=== PATIENT | female | born 1950 | race Caucasian/White ===

== ENCOUNTER 2016-09-12 17:00 | Inpatient (IN) | payer MEDICARE, MEDICAID ==
--- NOTE | 2016-09-12 17:01 | ED Physician Chart ---
Chief Complaint/HPI - Patient Information Date Seen:: 09/12/16 Time Seen:: 17:00 Chief Complaint:: abnormal labs History of Present Illness:: 65-year-old female with history of dementia acute, severe, abnormal labs are noticed this morning. Patient had associated fever which caused the care facility to draw labs. Apparent abnormalities were leukocytosis of over 20,000 , BUN over 100. History limited patient has underlying severe dementia History provided by EMS and EMS run sheet Allergies:: Allergies Allergy/AdvReac Type Severity Reaction Status Date / Time Penicillins [PCN] Allergy Verified 04/17/16 14:17 Historian:: EMS Review:: EMS run form Reviewed Review of Systems - Review of Systems Other: Complete system review otherwise unremarkable except as noted in history of present illness. Past Medical History - Past Medical History Past Medical History: HTN, Dementia Family History: None Social History: Non Smoker, No Alcohol, No Drug Use, Care Facility Surgical History: None Psychiatricy History: Depression, Schizophrenia Medication: Reviewed Family Medical History - Family Member Maternal History Unknown: Yes Ethnicity: Non- Physical Exam - Physical Examination Other:: INITIAL VITAL SIGNS: Reviewed by me GENERAL: Patient is lying on gurney, severely demented. HEAD: Head is normocephalic. No evidence of trauma. No scalp or facial swelling EYES: No scleral icterus bilaterally ENT: Oropharynx is clear of exudate and erythema NECK: Supple. No meningismus. No masses. No evidence of trauma. No cervical spine bony step-offs or crepitus to palpation RESPIRATORY: No tachypnea. Clear to auscultation bilaterally. CV: Regular rate and rhythm. No murmurs, rubs, or gallops ABDOMEN: Soft, non-distended. No masses BACK: No ecchymoses. No evidence of trauma EXTREMITIES: Normal to inspection and palpation. No deformity SKIN: Warm and dry. No obvious rash. No jaundice. States 3 decubitus ulcer over the coccyx NEUROLOGIC: Face is symmetric. Withdraws to pain in all extremities Labs/Radiology/EKG Results - Lab Results Results: Lab Results 09/12/16 09/12/16 09/12/16 Range/Units 17:05 17:20 17:20 WBC 22.4 H* D (4.8-10.8) Th/cmm RBC 3.92 (3.80-5.10) Mil/cmm Hgb 12.2 D (11.7-15.5) gm/dL Hct 36.0 D (35.0-45.0) % MCV 91.9 (81-100) fl MCH 31.0 (27.0-31.0) pg MCHC Differential 33.7 (28.0-36.0) pg RDW 14.2 (11.5-20.0) % Plt Count 249 D (150-400) Th/cmm MPV 11.1 fl Band Neutrophils % 4 (0-10) % Neutrophils (Manual) 74 (40-80) % Lymphocytes 18 L (20-50) % Monocytes 3 (2-10) % Eosinophils 1 (0-5) % Basophils 0 (0-3) % Platelet Estimate ADEQUATE (NORMAL) Platelet Morphology NORMAL (NORMAL) RBC Morph Micro Appear NORMAL (NORMAL) PT 10.3 (9.5-11.5) SECONDS INR 0.99 (0.5-1.4) PTT (Actin FS) 20.7 L (26.0-38.0) SECONDS Sodium (136-145) mEq/L Potassium (3.5-5.1) mEq/L Chloride (98-107) mEq/L Carbon Dioxide (21.0-31.0) mEq/L Anion Gap (7.0-16.0) BUN (7-25) mg/dL Creatinine (0.6-1.2) mg/dL Est GFR ( Amer) (>90) ml/min Est GFR (Non-Af Amer) ml/min BUN/Creatinine Ratio Glucose (70-105) mg/dL Whole Bld Lactic Acid (0.60-1.99) mmol/L Calcium (8.6-10.3) mg/dL Total Bilirubin (0.3-1.0) mg/dL AST (13-39) U/L ALT (7-52) U/L Alkaline Phosphatase (34-104) U/L Creatine Kinase (30-223) U/L Total Protein (6.0-8.3) gm/dL Albumin (3.7-5.3) gm/dL Globulin gm/dL Albumin/Globulin Ratio (1.0-1.8) Urine Source CATH Urine Color YELLOW Urine Clarity CLOUDY H (CLEAR) Urine pH 8.5 Ur Specific [place] 1.015 (1.005-1.030) Urine Protein 100 H (NEGATIVE) mg/dL Urine Glucose (UA) NEGATIVE (NEGATIVE) mg/dL Urine Ketones NEGATIVE (NEGATIVE) mg/dL Urine Blood SMALL H (NEGATIVE) Urine Nitrate POSITIVE H (NEGATIVE) Urine Bilirubin NEGATIVE (NEGATIVE) Urine Urobilinogen 0.2 (0.2 - 1.0) E.U./dL Ur Leukocyte Esterase SMALL H (NEGATIVE) Urine RBC 5-10 H (0-5) /hpf Urine WBC 6-10 H (0-5) /hpf Ur Epithelial Cells MANY (FEW) /lpf Triple Phos Crystals MANY (FEW) /hpf Urine Bacteria MANY (NONE SEEN) /hpf 09/12/16 09/12/16 Range/Units 17:20 17:20 WBC (4.8-10.8) Th/cmm RBC (3.80-5.10) Mil/cmm Hgb (11.7-15.5) gm/dL Hct (35.0-45.0) % MCV (81-100) fl MCH (27.0-31.0) pg MCHC Differential (28.0-36.0) pg RDW (11.5-20.0) % Plt Count (150-400) Th/cmm MPV fl Band Neutrophils % (0-10) % Neutrophils (Manual) (40-80) % Lymphocytes (20-50) % Monocytes (2-10) % Eosinophils (0-5) % Basophils (0-3) % Platelet Estimate (NORMAL) Platelet Morphology (NORMAL) RBC Morph Micro Appear (NORMAL) PT (9.5-11.5) SECONDS INR (0.5-1.4) PTT (Actin FS) (26.0-38.0) SECONDS Sodium 156 H D (136-145) mEq/L Potassium 4.5 (3.5-5.1) mEq/L Chloride 124 H (98-107) mEq/L Carbon Dioxide 27.8 (21.0-31.0) mEq/L Anion Gap 8.7 (7.0-16.0) BUN 112 H* (7-25) mg/dL Creatinine 1.3 H (0.6-1.2) mg/dL Est GFR ( Amer) 53.0 (>90) ml/min Est GFR (Non-Af Amer) 43.8 ml/min BUN/Creatinine Ratio 86.2 Glucose 226 H (70-105) mg/dL Whole Bld Lactic Acid 1.87 (0.60-1.99) mmol/L Calcium 11.5 H (8.6-10.3) mg/dL Total Bilirubin 0.3 (0.3-1.0) mg/dL AST 23 (13-39) U/L ALT 48 (7-52) U/L Alkaline Phosphatase 72 (34-104) U/L Creatine Kinase 83 (30-223) U/L Total Protein 9.2 H (6.0-8.3) gm/dL Albumin 4.6 (3.7-5.3) gm/dL Globulin 4.6 gm/dL Albumin/Globulin Ratio 1.0 (1.0-1.8) Urine Source Urine Color Urine Clarity (CLEAR) Urine pH Ur Specific [place] (1.005-1.030) Urine Protein (NEGATIVE) mg/dL Urine Glucose (UA) (NEGATIVE) mg/dL Urine Ketones (NEGATIVE) mg/dL Urine Blood (NEGATIVE) Urine Nitrate (NEGATIVE) Urine Bilirubin (NEGATIVE) Urine Urobilinogen (0.2 - 1.0) E.U./dL Ur Leukocyte Esterase (NEGATIVE) Urine RBC (0-5) /hpf Urine WBC (0-5) /hpf Ur Epithelial Cells (FEW) /lpf Triple Phos Crystals (FEW) /hpf Urine Bacteria (NONE SEEN) /hpf - Radiology Results Results: Single AP VIEW Portable Chest X-ray was interpreted independently and contemporaneously by Piper Cuevsa MD: No cardiomegaly Normal mediastinum No lung infiltrates No pneumothorax No soft tissue or bony abnormalities - EKG Interpretations Comments:: 12-lead EKG Interpretation by Piper Cuevas MD: Sinus tachycardia with ventricular rate of 113 beats per minute Normal axis Normal intervals No acute ST or T wave changes. No obvious STEMI Assessment - Assessment General Assessment: Critical Care Time: 35 minutes Treatments/Evaluations: Close monitoring and treatment of unstable vital signs, cardiorespiratory, and neurologic status, while maintaining tight balance of fluid, respiratory, and cardiac interventions. This time includes discussing the case with the patient and the patient's family. This time does not include all procedures stated elsewhere in this record. This time also includes reviewing old records, labs and radiological studies. This time includes examining and re-examining the patient. Additionally, this time also includes arranging care with admitting and consulting physicians. ED Septic Shock - . Is Septic Shock (SBP<90, OR Lactate>4 mmol\L) present?: No Reassessment (Disposition) - Reassessment Reassessment:: Patient arrived tachycardic. There is report of fever prior to arrival. Patient also had white blood cell count of over 20,000. Has UTI. Patient meets criteria for sepsis, UTI. Is also severely dehydrated Received IV fluids and IV Rocephin. Discussed case with the admitting physician. Patient admitted for further workup and treatment. Reassessment Condition:: Improved - Diagnosis Diagnosis:: Sepsis Acute UTI Acute dehydration Acute renal failure - Patient Disposition Discharge/Transfer:: Acute Care w/in this hosp Admitted to:: Telemetry Admitting Medical Physician:: Delfino Cagle Time:: 18:45 Condition at Disposition:: Stable
[2016-09-12] MEDS ORDERED: Sodium Chloride 0.9% 1,000 ML IV ONE (17:20)
[2016-09-12 17:42] LABS: MEAN CELL VOLUME 91.9 fl (81-100); MEAN PLATELET VOLUME 11.1 fl
[2016-09-12 17:47] LABS: MEAN CORPUSCULAR HGB CONC 33.7 pg (28.0-36.0); RED BLOOD COUNT 3.92 Mil/cmm (3.80-5.10); RED CELL DISTRIBUTION WIDTH 14.2 % (11.5-20.0)
[2016-09-12 17:53] LABS: HEMOGLOBIN 12.2 gm/dL (11.7-15.5); WHITE BLOOD COUNT 22.4 Th/cmm (4.8-10.8)
[2016-09-12 17:54] LABS: PLATELET COUNT 249 Th/cmm (150-400)
[2016-09-12 18:00] LABS: INR 0.99 (0.5-1.4); PROTHROMBIN TIME (TEST) 10.3 SECONDS (9.5-11.5)
[2016-09-12] MEDS ORDERED: cefTRIAXone 1 GM in Sodium Chloride 0.9% 50 ML IV ONE (18:15)
[2016-09-12 18:30] LABS: URINE BILIRUBIN NEGATIVE (NEGATIVE); URINE BLOOD SMALL (NEGATIVE); URINE COLOR YELLOW; URINE GLUCOSE (UA) NEGATIVE (NEGATIVE); URINE KETONE NEGATIVE (NEGATIVE)
[2016-09-12 18:31] LABS: URINE PH 8.5; URINE PROTEIN 100 mg/dL (NEGATIVE); URINE UROBILINOGEN 0.2 E.U./dL (0.2 - 1.0)
[2016-09-12 18:33] LABS: URINE BACTERIA MANY /hpf (NONE SEEN); URINE EPITHELIAL CELLS MANY /lpf (FEW); URINE TRIPLE PHOSPHATE CRYSTAL MANY /hpf (FEW)
[2016-09-12 18:55] LABS: ANION GAP 8.7 (7.0-16.0); BILIRUBIN,TOTAL 0.3 mg/dL (0.3-1.0); BUN/CREATININE RATIO 86.2; CALCIUM SERUM 11.5 mg/dL (8.6-10.3); CARBON DIOXIDE 27.8 mEq/L (21.0-31.0); CREATININE - SERUM 1.3 mg/dL (0.6-1.2); POTASSIUM SERUM 4.5 mEq/L (3.5-5.1)
[2016-09-12 18:58] LABS: BAND NEUTROPHILE 4 % (0-10); BASOPHIL 0 % (0-3); NEUTROPHILS 74 % (40-80); TOTAL CELLS COUNTED 100
[2016-09-12 18:59] LABS: EOSINOPHIL 1 % (0-5); PLATELET ESTIMATE ADEQUATE (NORMAL); PLATELET MORPHOLOGY NORMAL (NORMAL)
[2016-09-12] MEDS ORDERED: Fleet Enema 135 mL RC PRN (20:16)
[2016-09-12] MEDS ORDERED: Magnesium Hydroxide (MOM) 30 mL UDC GT PRN (20:16)
[2016-09-12] MEDS ORDERED: guaiFENesin 200 MG/10 ML UDC GT PRN (20:20)
[2016-09-12] MEDS ORDERED: Sodium Chloride 0.9% 1,000 ML IV SCH (20:30)
--- NOTE | 2016-09-12 20:42 | Admit Criteria Form ---
Admit Criteria Forms - Admit Criteria Diagnosis: URINARY COMPLICATIONS Clinical Indications for Inpatient Care (Place 'X' for any and all applicable criteria): Ongoing inpatient care may be indicated for urinary complications with ANY ONE of the following: [X]I. Urinary tract infection requiring inpatient care as indicated by ANY ONE of the following(8)(19)(20): [ ]a) Severe symptoms (eg, high fever, severe pain) [X]b) Vomiting or dehydration requiring ongoing inpatient care [X]c) IV antibiotic needs that cannot be managed at lower level of care [ ]d) Hemodynamic instability [ ]e) Obstruction of collecting system by stone or tumor [ ]II. Urinary retention requiring drainage or surgery (3)(4)(5)(17)(18) [ ]III. Renal failure (Use Renal Failure Criteria for further information.) [ ]IV. Oliguria(30) [ ]V. Post obstructive diuresis requiring close monitoring of urine output and intravenous compensation for excessive fluid losses(33) Extended stay beyond goal length of stay for primary condition may be needed until ALL of the following are present(3)(4)(5)(8): [ ]a) Renal function (creatinine) at baseline, or daily decreases in creatinine consistent with renal function return [ ]b) Voiding adequately or with urinary catheter or percutaneous suprapubic tube and management regimen in place that is performable at lower level of care. [ ]c) Urine output adequate [ ]d) Fever absent or resolving [ ]e) Infection absent or treatable at next level of care The original [employer] [facility] content created by [employer] has been revised. The portions of the content which have been revised are identified through the use of italic text or in bold, and [facility] has neither reviewed nor approved the modified material. All other unmodified content is copyright [facility] Please see references footnoted in the original [facility] [employer] edition 2016 Admit Criteria Met?: Yes
[2016-09-12] MEDS ORDERED: Levofloxacin 250mg/50mL 250 MG/50 ML BAG IV SCH (21:00)
[2016-09-12 22:21] VITALS: BP 104/63
[2016-09-12] MEDS: Albuterol/Ipratropium Neb 3 ML AERS HHN SCH (23:00)
[2016-09-13 06:14] LABS: MEAN CELL VOLUME 91.6 fl (81-100); MEAN CORPUSCULAR HEMOGLOBIN 31.4 pg (27.0-31.0); MEAN CORPUSCULAR HGB CONC 34.3 pg (28.0-36.0); MEAN PLATELET VOLUME 11.3 fl; PLATELET COUNT 202 Th/cmm (150-400); RED BLOOD COUNT 3.49 Mil/cmm (3.80-5.10); RED CELL DISTRIBUTION WIDTH 14.1 % (11.5-20.0)
[2016-09-13 06:30] LABS: ALB/GLOB RATIO 0.9 (1.0-1.8); ALKALINE PHOSPHATASE 61 U/L (34-104); BILIRUBIN,TOTAL 0.3 mg/dL (0.3-1.0); BUN/CREATININE RATIO 91.8; CALCIUM SERUM 10.3 mg/dL (8.6-10.3); CHLORIDE 124 mEq/L (98-107); CREATININE - SERUM 1.1 mg/dL (0.6-1.2); GLUCOSE 239 mg/dL (70-105); MAGNESIUM 2.6 mg/dL (1.9-2.7); SGOT 16 U/L (13-39); SGPT/ALT 33 U/L (7-52)
[2016-09-13 06:59] LABS: BUN - UREA NITROGEN 101 mg/dL (7-25); SODIUM SERUM 160 mEq/L (136-145)
[2016-09-13 07:56] LABS: HEMATOCRIT 31.9 % (35.0-45.0); WHITE BLOOD COUNT 23.2 Th/cmm (4.8-10.8)
[2016-09-13 07:59] LABS: TSH 1.54 uIU/ml (0.34-5.60)
[2016-09-13 08:38] LABS: BAND NEUTROPHILE 6 % (0-10); NEUTROPHILS 85 % (40-80); PLATELET ESTIMATE ADEQUATE (NORMAL); PLATELET MORPHOLOGY NORMAL (NORMAL); TOTAL CELLS COUNTED 100
[2016-09-13] MEDS ORDERED: Multivitamin w/ Minerals 15 mL UDC GT SCH (09:00)
[2016-09-13] MEDS ORDERED: Pantoprazole 40 mg/Packet GT SCH ×2 (09:00→13:15)
[2016-09-13] MEDS: Albuterol/Ipratropium Neb 3 ML AERS HHN SCH ×3 (09:02→19:22)
--- NOTE | 2016-09-13 09:38 | Diagnostic Imaging Report ---
Portable chest x-ray HISTORY: Pain Allowing for portable technique in a poor inspiration, the heart size is normal. Atherosclerotic calcification seen in the aorta. No acute focal pulmonary processes. Arthritic changes noted about the shoulder regions. Diffuse degenerative changes are seen within the spine. IMPRESSION: No acute abnormalities
[2016-09-13] MEDS ORDERED: Dextrose 5% 1,000 ML IV SCH (09:45)
[2016-09-13] MEDS: Multivitamin w/ Minerals Tab GT SCH (09:55)
[2016-09-13] MEDS: Ascorbic Acid 500 mg/5 mL UDC GT SCH (09:55)
[2016-09-13] MEDS: Lactobacillus Rhamnosus 10 Billion CFU Capsule GT SCH ×2 (10:01→21:48)
[2016-09-13 11:16] LABS: ABG SOURCE Arterial; ALLEN TEST PASS; BE(B) 4.2 mEq/L (-3.0-3.0); CRITICAL VALUES REPORTED BY PW; FIO2 21; HCO3 28.1 mEq/L (20.0-26.0); pH 7.46 (7.35-7.45)
[2016-09-13] MEDS: Dextrose 5% 1,000 ML IV SCH ×2 (13:12→23:00)
[2016-09-13] MEDS: Meropenem 500 MG in Sodium Chloride 0.9% 100 ML IV SCH (14:59)
--- NOTE | 2016-09-13 15:54 | Consultation ---
HISTORY OF PRESENT ILLNESS: This 65-year-old patient is coming from extended care facility, was brought in to the hospital because of weakness and abnormal lab studies, which showed evidence of leukocytosis with associated fever and azotemia. 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 PHYSICAL EXAMINATION: VITAL SIGNS: Temperature is 98.2, blood pressure is 109/52, on BiPAP, not responsive. CHEST: Poor ____ exchange. CARDIOVASCULAR: Regular sinus. ABDOMEN: G-tube in place. EXTREMITIES: There is no edema. STUDIES: Urinalysis shows bacteria in concentrated urine. Chest x-ray, no infiltrate, 23,000 count, 11 hemoglobin and hematocrit of 31. Rest of the blood studies, 237 glucose, 160 sodium, 4 potassium, chloride 124, CO2 of 28, BUN of 101, creatinine of 1.1. IMPRESSION: 1. Sepsis, urinary source. 2. Free water deficit. 3. Renal failure secondary to #2 and 1. 4. Respiratory failure. IMPRESSION: Change antibiotics with a wider coverage for Gram-negative organism, increase free water, which was done at 125 mL per hour and run it for another 10 hours and reevaluate, rule out the possibility of pulmonary emboli in this patient with the patient having decrease O2 sat in the presence of respiratory difficulty and will follow this patient with you. [facility]# [id number]
[2016-09-13] MEDS: Hydrocodone/APAP 5mg/325mg Tab GT PRN (21:48)
[2016-09-14] MEDS: Albuterol/Ipratropium Neb 3 ML AERS HHN SCH ×4 (01:15→19:19)
--- NOTE | 2016-09-14 04:06 | Consultation ---
The patient is a patient of Dr. Cagle. Thank you very much Dr. Cagle for this consultation. HISTORY OF PRESENT ILLNESS: This is a 65-year-old female well known to me from previous admission, history of respiratory failure, respiratory arrest, history of intubation in the past. The patient was admitted with altered level of consciousness and acute renal failure and fever. The patient was getting more lethargic and in respiratory distress and was placed on the BiPAP, now appears to be more responsive, but still very lethargic. PAST MEDICAL HISTORY: As above. Again, history of intubation and extubation and treatment of pneumonia and dysphagia and aspiration in the past. SOCIAL HISTORY: alf resident. I am not sure about her history of smoking in the past. PHYSICAL EXAMINATION: VITAL SIGNS: Temperature is 98.7, pulse 113, respiration is 22, blood pressure 100/59 and saturation 100%. HEENT: Atraumatic and normocephalic. Pupils react to light and accommodation. Ears, nose and throat: Normal. NECK: Supple. No JVD. CHEST: There are good breath sounds with BiPAP on. Minimal rhonchi. No wheezing and no crackles. HEART: Regular rate ____. ABDOMEN: Soft. EXTREMITIES: No edema. LABORATORY DATA: WBC is 23.2, hemoglobin 11.0, hematocrit 31.9 and platelets 202. ABGs: A pH of 7.46, pCO2 of 40, pO2 of 62, bicarbonate is 28, saturation 93%. Sodium 160, potassium 4.0, BUN 101 and creatinine 1.1. UA shows cloudiness and positive nitrite and leukocyte esterase, bacteria and crystals. IMAGING STUDIES: Chest x-ray: No acute infiltrate. IMPRESSION: 1. This is a 65-year-old female with urinary tract infection. 2. Acute respiratory failure. 3. Sepsis. 4. Dementia. 5. Dysphagia. 6. Hypernatremia. PLAN: 1. IV antibiotics. 2. IV hydration. 3. Continue with the BiPAP on for now and follow up ABGs, continue supportive care. Thank you very much. Case was discussed with Dr. Cagle. JOB# [id number] [facility]
[2016-09-14 06:45] LABS: ANION GAP 7.2 (7.0-16.0); BUN - UREA NITROGEN 71 mg/dL (7-25); BUN/CREATININE RATIO 78.9; CALCIUM SERUM 9.4 mg/dL (8.6-10.3); CARBON DIOXIDE 25.3 mEq/L (21.0-31.0); CHLORIDE 120 mEq/L (98-107); CREATININE - SERUM 0.9 mg/dL (0.6-1.2); GLUCOSE 433 mg/dL (70-105); MAGNESIUM 2.4 mg/dL (1.9-2.7); POTASSIUM SERUM 3.5 mEq/L (3.5-5.1); SODIUM SERUM 149 mEq/L (136-145)
[2016-09-14] MEDS: Dextrose 5% 1,000 ML IV SCH ×3 (07:04→21:06)
--- NOTE | 2016-09-14 08:47 | Diagnostic Imaging Report ---
Portable chest x-ray HISTORY: Shortness of breath Compared with prior exam of September 12, 2016, no focal pulmonary processes are seen. The heart size is normal. IMPRESSION: No acute abnormalities
[2016-09-14 09:26] LABS: HEMATOCRIT 28.5 % (35.0-45.0); HEMOGLOBIN 9.8 gm/dL (11.7-15.5); MEAN CELL VOLUME 91.1 fl (81-100); MEAN CORPUSCULAR HEMOGLOBIN 31.3 pg (27.0-31.0); MEAN CORPUSCULAR HGB CONC 34.4 pg (28.0-36.0); MEAN PLATELET VOLUME 11.2 fl; PLATELET COUNT 141 Th/cmm (150-400); RED BLOOD COUNT 3.13 Mil/cmm (3.80-5.10); RED CELL DISTRIBUTION WIDTH 14.3 % (11.5-20.0)
[2016-09-14 09:31] LABS: ABG SOURCE Arterial; ALLEN TEST PASS; BE(B) 3.9 mEq/L (-3.0-3.0); CRITICAL VALUES REPORTED BY PW; FIO2 30; MECH RATE 12; pH 7.47 (7.35-7.45)
[2016-09-14 09:41] LABS: WHITE BLOOD COUNT 14.4 Th/cmm (4.8-10.8)
[2016-09-14 10:10] LABS: BAND NEUTROPHILE 3 % (0-10); EOSINOPHIL 3 % (0-5); NEUTROPHILS 89 % (40-80); TOTAL CELLS COUNTED 100
[2016-09-14 10:11] LABS: PLATELET ESTIMATE ADEQUATE (NORMAL)
[2016-09-14] MEDS: Meropenem 500 MG in Sodium Chloride 0.9% 100 ML IV SCH ×2 (10:13→20:57)
[2016-09-14] MEDS: Pantoprazole 40 mg/Packet GT SCH (10:17)
[2016-09-14] MEDS: Multivitamin w/ Minerals Tab GT SCH (10:17)
[2016-09-14] MEDS: Ascorbic Acid 500 mg/5 mL UDC GT SCH (10:17)
[2016-09-14] MEDS: Lactobacillus Rhamnosus 10 Billion CFU Capsule GT SCH ×2 (10:17→20:57)
--- NOTE | 2016-09-14 15:18 | Internal Medicine Prog Note ---
Internal Medicine Subjective - Subjective Patient seen and examined:: with staff, chart reviewed Patient is:: awake, non-verbal, non-interactive Patient Complaints of:: congestion Per staff patient is:: agitated, noncompliant, confused Internal Medicine Objective - Results Result Diagrams: 09/14/16 09:00 09/14/16 05:50 Recent Labs: Laboratory Last Values WBC 14.4 Th/cmm (4.8-10.8) H D 09/14/16 09:00 RBC 3.13 Mil/cmm (3.80-5.10) L 09/14/16 09:00 Hgb 9.8 gm/dL (11.7-15.5) L 09/14/16 09:00 Hct 28.5 % (35.0-45.0) L D 09/14/16 09:00 MCV 91.1 fl (81-100) 09/14/16 09:00 MCH 31.3 pg (27.0-31.0) H 09/14/16 09:00 MCHC Differential 34.4 pg (28.0-36.0) 09/14/16 09:00 RDW 14.3 % (11.5-20.0) 09/14/16 09:00 Plt Count 141 Th/cmm (150-400) L D 09/14/16 09:00 MPV 11.2 fl 09/14/16 09:00 Band Neutrophils % 3 % (0-10) 09/14/16 09:00 Neutrophils (Manual) 89 % (40-80) H 09/14/16 09:00 Lymphocytes 3 % (20-50) L 09/14/16 09:00 Monocytes 2 % (2-10) 09/14/16 09:00 Eosinophils 3 % (0-5) 09/14/16 09:00 Basophils 0 % (0-3) 09/12/16 17:20 Platelet Estimate ADEQUATE (NORMAL) 09/14/16 09:00 Platelet Morphology NORMAL (NORMAL) 09/13/16 05:34 RBC Morph Micro Appear NORMAL (NORMAL) 09/14/16 09:00 PT 10.3 SECONDS (9.5-11.5) 09/12/16 17:20 INR 0.99 (0.5-1.4) 09/12/16 17:20 PTT (Actin FS) 20.7 SECONDS (26.0-38.0) L 09/12/16 17:20 Specimen Source Arterial 09/14/16 09:12 Sample Site Left Radial 09/14/16 09:12 pH 7.47 (7.35-7.45) H 09/14/16 09:12 pCO2 38.0 mmHg (35.0-45.0) 09/14/16 09:12 pO2 159.0 mmHg (80.0-100.0) H 09/14/16 09:12 HCO3 28.0 mEq/L (20.0-26.0) H 09/14/16 09:12 Base Excess 3.9 mEq/L (-3.0-3.0) H 09/14/16 09:12 O2 Saturation 100.0 % (92.0-100.0) 09/14/16 09:12 Luis Miguel Test PASS 09/14/16 09:12 Vent Rate 12 09/14/16 09:12 Inspired O2 30 09/14/16 09:12 Critical Value PW 09/14/16 09:12 Sodium 149 mEq/L (136-145) H 09/14/16 05:50 Potassium 3.5 mEq/L (3.5-5.1) 09/14/16 05:50 Chloride 120 mEq/L (98-107) H 09/14/16 05:50 Carbon Dioxide 25.3 mEq/L (21.0-31.0) 09/14/16 05:50 Anion Gap 7.2 (7.0-16.0) 09/14/16 05:50 BUN 71 mg/dL (7-25) H 09/14/16 05:50 Creatinine 0.9 mg/dL (0.6-1.2) 09/14/16 05:50 Est GFR ( Amer) > 60.0 ml/min (>90) 09/14/16 05:50 Est GFR (Non-Af Amer) > 60.0 ml/min 09/14/16 05:50 BUN/Creatinine Ratio 78.9 09/14/16 05:50 Glucose 433 mg/dL (70-105) H 09/14/16 05:50 Hemoglobin A1c % 6.6 % (4.0-6.0) H 09/12/16 17:20 Whole Bld Lactic Acid 1.22 mmol/L (0.60-1.99) 09/12/16 19:20 Calcium 9.4 mg/dL (8.6-10.3) 09/14/16 05:50 Magnesium 2.4 mg/dL (1.9-2.7) 09/14/16 05:50 Total Bilirubin 0.3 mg/dL (0.3-1.0) 09/13/16 05:34 AST 16 U/L (13-39) 09/13/16 05:34 ALT 33 U/L (7-52) 09/13/16 05:34 Alkaline Phosphatase 61 U/L (34-104) 09/13/16 05:34 Ammonia 41 umol/L (16-53) 09/14/16 05:50 Creatine Kinase 83 U/L (30-223) 09/12/16 17:20 B-Natriuretic Peptide 97.4 pg/mL (5.0-100.0) 09/14/16 09:00 Total Protein 7.9 gm/dL (6.0-8.3) 09/13/16 05:34 Albumin 3.7 gm/dL (3.7-5.3) 09/13/16 05:34 Globulin 4.2 gm/dL 09/13/16 05:34 Albumin/Globulin Ratio 0.9 (1.0-1.8) L 09/13/16 05:34 TSH 1.54 uIU/ml (0.34-5.60) 09/13/16 05:34 Urine Source CATH 09/12/16 17:05 Urine Color YELLOW 09/12/16 17:05 Urine Clarity CLOUDY (CLEAR) H 09/12/16 17:05 Urine pH 8.5 09/12/16 17:05 Ur Specific [place] 1.015 (1.005-1.030) 09/12/16 17:05 Urine Protein 100 mg/dL (NEGATIVE) H 09/12/16 17:05 Urine Glucose (UA) NEGATIVE mg/dL (NEGATIVE) 09/12/16 17:05 Urine Ketones NEGATIVE mg/dL (NEGATIVE) 09/12/16 17:05 Urine Blood SMALL (NEGATIVE) H 09/12/16 17:05 Urine Nitrate POSITIVE (NEGATIVE) H 09/12/16 17:05 Urine Bilirubin NEGATIVE (NEGATIVE) 09/12/16 17:05 Urine Urobilinogen 0.2 E.U./dL (0.2 - 1.0) 09/12/16 17:05 Ur Leukocyte Esterase SMALL (NEGATIVE) H 09/12/16 17:05 Urine RBC 5-10 /hpf (0-5) H 09/12/16 17:05 Urine WBC 6-10 /hpf (0-5) H 09/12/16 17:05 Ur Epithelial Cells MANY /lpf (FEW) 09/12/16 17:05 Triple Phos Crystals MANY /hpf (FEW) 09/12/16 17:05 Urine Bacteria MANY /hpf (NONE SEEN) 09/12/16 17:05 Vancomycin Trough 19.4 ug/mL (10-20) 09/14/16 09:00 - Physical Exam Vitals and I&O: Vital Signs Temp 97.4 F 09/14/16 08:00 Pulse 101 09/14/16 13:21 Resp 30 09/14/16 13:21 BP 102/60 09/14/16 08:00 Pulse Ox 100 09/14/16 13:21 Intake & Output 09/13/16 09/14/16 09/14/16 18:59 06:59 18:59 Intake Total 350 1000 2414.167 Output Total 750 Balance 350 1000 1664.167 Intake: Intake, IV Amount 350 1000 1754.167 Dextrose 5% 1,000 ml @ 1000 1754.167 125 mls/hr IV .Q8H DC Rx #:[id number] Meropenem 500 mg In 100 Sodium Chloride 0.9% 100 ml @ 100 mls/hr IV Q12HR DC Rx#:[id number] Vancomycin HCl 1 gm In 250 Sodium Chloride 0.9% 250 ml @ 165 mls/hr IV Q24H DC Rx#:[id number] Oral 0 Tube Feeding 660 Output: Urine 750 Other: # Voids 1 Active Medications: Current Medications Acetaminophen (Tylenol 650mg/20.3ml Suspension) 650 mg GT Q6HR PRN PRN Reason: Pain or Fever >101 Stop: 11/11/16 20:15 Last Admin: 09/13/16 14:58 Dose: 650 mg Acetaminophen/Hydrocodone Bitart ([place] 5mg/325mg) 1 tab GT Q4H PRN PRN Reason: Pain (Severe) Stop: 11/11/16 20:19 Last Admin: 09/13/16 21:48 Dose: 1 tab Albuterol/Ipratropium (Duoneb Neb) 3 ml HHN Q6HRT [facility] Stop: 11/12/16 12:59 Last Admin: 09/14/16 13:15 Dose: 3 ml Ascorbic Acid (Vitamin C) 500 mg GT DAILY DC Stop: 11/12/16 08:59 Last Admin: 09/14/16 10:17 Dose: 500 mg Bisacodyl (Dulcolax 10 Mg Supp) 10 mg RC DAILY PRN PRN Reason: IF MOM INEFFECTIVE Stop: 11/11/16 20:15 Guaifenesin (Robitussin) 200 mg GT Q4HR PRN PRN Reason: Cough or Congestion Stop: 11/11/16 20:19 Heparin Sodium (Porcine) (Heparin) 5,000 units SUBQ Q12HR [facility] Stop: 11/11/16 20:59 Last Admin: 09/14/16 10:18 Dose: 5,000 units Vancomycin HCl 1 gm/ Sodium (Chloride) 250 mls @ 165 mls/hr IV Q24H [facility] Stop: 11/12/16 09:59 Last Admin: 09/14/16 10:22 Dose: 165 mls/hr Dextrose (D5w) 1,000 mls @ 125 mls/hr IV .Q8H [facility] Stop: 11/12/16 12:57 Last Admin: 09/14/16 13:06 Dose: 125 mls/hr Meropenem 500 mg/ Sodium (Chloride) 100 mls @ 100 mls/hr IV Q12HR [facility] Stop: 11/12/16 13:59 Last Admin: 09/14/16 10:13 Dose: 100 mls/hr Lactobacillus Rhamnosus (Culturelle) 1 each GT Q12H DC Stop: 11/12/16 08:59 Last Admin: 09/14/16 10:17 Dose: 1 each Loperamide HCl (Imodium 1mg/5ml Suspension) 2 mg GT Q4H PRN PRN Reason: Diarrhea Lorazepam (Ativan) 0.5 mg GT Q6H PRN; Protocol PRN Reason: Anxiety Stop: 11/11/16 20:15 Last Admin: 09/13/16 21:48 Dose: 0.5 mg Magnesium Hydroxide (Milk Of Magnesia) 30 ml GT HS PRN PRN Reason: Constipation Stop: 11/11/16 20:15 Miscellaneous (Vancomycin Iv Per Pharmacy) 1 ea MC PRN DC Stop: 11/11/16 20:29 Ondansetron HCl (Zofran) 4 mg IV Q8H PRN PRN Reason: Nausea / Vomiting Stop: 11/11/16 20:19 Pantoprazole Sodium (Protonix) 40 mg GT Q24H DC Stop: 11/13/16 08:59 Last Admin: 09/14/16 10:17 Dose: 40 mg Sodium Phosphate (Fleet Enema) 135 ml RC Q48H PRN PRN Reason: IF DULCOLAX INEFFECTIVE Stop: 11/11/16 20:15 General: demented HEENT: NC/AT, PERRLA Neck: Supple, No JVD Lungs: congested, rales, ronchi Cardiovascular: RRR, Normal S1, Normal S2 Abdomen: soft non-tender, thin, +GT, positive bowel sound Extremities: excoriation, contracture Neurological: lethargic, unable to follow command - Procedures Procedures: Procedures Procedure Code Date [place] [address] 04/15/16 IMMUNIZATION ADMIN 58289 04/15/16 INSERT PICC CATH 85798 04/15/16 INSERTION OF INFUSION DEVICE INTO R ATRIUM, PERC APPROACH [id number] 04/15/16 INTRODUCTION OF SERUM/TOX/VACCINE INTO MUSCLE, PERC APPROACH [id number] 04/15/16 Internal Medicine Assmt/Plan - Assessment Assessment: severe sepsis acute respiratory failure dementia acute renal failure electroytes abn - Plan Plan: cont on bipap pulm follow up renal follow up correct lytes cont on iv abx joao rn Nutritional Asmnt/Malnutr-PDOC - Dietary Evaluation Malnutrition Findings (Please click <Entered> for more info): Nutritional Asmnt/Malnutrition Start: 09/13/16 11: 06 Text: Status: Complete Freq: Document 09/13/16 11:06 GSUN (Rec: 09/13/16 11:16 [id number]) Nutritional Asmnt/Malnutrition Patient General Information Nutritional Screening Consult Diagnosis ER: Sepsis, acute UTI, acute dehydration, actue renal failure Pertinent Medical Hx/Surgical Hx ER: dementia, HTN, depression, schizophrenia Subjective Information 65 year old female from SNF. Pt admitted for acute severe abnormal labs. RD consult wound. Pt was soundly asleep during visit, did not wake to RD's call, palced on bipap after RD's visit. Observed tube feeding infusing as ordered. Unable to obtain CBW due to bedscale on special settings. Mild wastings to temporals. Spoke to RN, tolerating tube feeding, no diarrhea. RN also stated pt appeared to be in critical state. Current Diet Order/ Nutrition Support Diabetisource 60ml/hr x 24hrs, providing 1440kcal, 72g protein. Pertinent Medications Vitamin C, D5, Culturelle, MOM , Vancomycin, Zofran, Protonix , Fleet Enema Pertinent Labs 09/12: sodium 156H, BUN 112H, creatinine 1.3H, glucose 226H, A1c 6.6H 09/11: sodium 160H, BUN 101H, glucose 239H Nutritional Hx/Data Height 1.63 m Height (Calculated Centimeters) 162.6 Current Weight (lbs) 62.142 kg Weight (Calculated Kilograms) 62.1 Weight (Calculated Grams) 90642.2 [place] Body Weight 120 Weight Status Approriate GI Symptoms Food Allergies No Cultural/Ethnic/Adventism Belief SNF order: glucerna 1.2 at 60ml/hrs x 20hrs, on at 2pm off at 10am, providing 1440kcal. Water flush 150ml every shift. Skin Integrity/Comment: Ruslan Tian. museum director: coccyx pressure area. No wound care note yet. Estimated Nutritional Goals Calories/Kcals/Kg IBW 120lb/54.5kg Kcals Calculated 1635-1908kcal (30-35kcal/kg, sepsis) Protein Calculated 71-87g (1.3-1.6g/kg, sepsis, ? wound) Fluid: ml 1635-1908ml (1ml/kcal) Nutritional Problem 1. Problem Problem Increased nutrient needs related to Etiology hypermetabolic state aeb Signs/Symptoms: ER: sepsis Intervention/Recommendation Comments 1. When medically appropriate, recommend increasing Diabetisource to 70ml/hr x 20hrs, providing 1680kcal, 84g protein, 1145ml free water. Current order meeting 88% of lower end of estimated nutritional needs with consideration of diagnoses. Expected Outcomes/Goals Expected Outcomes/Goals 1. Pt to meet 100% estimated nutritional needs on tube feeding with tolerance.
[2016-09-15] MEDS: Albuterol/Ipratropium Neb 3 ML AERS HHN SCH ×4 (01:02→19:14)
[2016-09-15 05:39] LABS: % BASOPHILS 0.6 % (0.0-2.0); % EOSINOPHILS 3.8 % (0.0-5.0); % LYMPHOCYTES 16.9 % (20.0-50.0); % MONOCYTES 5.3 % (2.0-10.0); % NEUTROPHILS 73.4 % (40.0-80.0); HEMATOCRIT 27.1 % (35.0-45.0); HEMOGLOBIN 9.1 gm/dL (11.7-15.5); MEAN CELL VOLUME 91.1 fl (81-100); MEAN CORPUSCULAR HEMOGLOBIN 30.6 pg (27.0-31.0); MEAN CORPUSCULAR HGB CONC 33.6 pg (28.0-36.0); MEAN PLATELET VOLUME 10.6 fl; NEUTROPHILE ABSOLUTE 7.6 Th/cmm (1.8-8.0); PLATELET COUNT 142 Th/cmm (150-400); RED BLOOD COUNT 2.98 Mil/cmm (3.80-5.10); RED CELL DISTRIBUTION WIDTH 13.8 % (11.5-20.0)
[2016-09-15 05:54] LABS: WHITE BLOOD COUNT 10.3 Th/cmm (4.8-10.8)
[2016-09-15 06:06] LABS: ALKALINE PHOSPHATASE 47 U/L (34-104); ANION GAP 8.8 (7.0-16.0); BILIRUBIN,TOTAL 0.3 mg/dL (0.3-1.0); BUN - UREA NITROGEN 46 mg/dL (7-25); BUN/CREATININE RATIO 76.7; CALCIUM SERUM 8.9 mg/dL (8.6-10.3); CARBON DIOXIDE 24.3 mEq/L (21.0-31.0); CHLORIDE 115 mEq/L (98-107); CREATININE - SERUM 0.6 mg/dL (0.6-1.2); GLUCOSE 296 mg/dL (70-105); MAGNESIUM 2.2 mg/dL (1.9-2.7); POTASSIUM SERUM 3.1 mEq/L (3.5-5.1); SGOT 12 U/L (13-39); SGPT/ALT 17 U/L (7-52); SODIUM SERUM 145 mEq/L (136-145)
[2016-09-15] MEDS: Dextrose 5% 1,000 ML IV SCH ×2 (06:51→13:10)
[2016-09-15] MEDS: Venelex 60gm Tube TP SCH (09:08)
[2016-09-15] MEDS: Pantoprazole 40 mg/Packet GT SCH (09:09)
[2016-09-15] MEDS: Ascorbic Acid 500 mg/5 mL UDC GT SCH (09:09)
[2016-09-15] MEDS: Lactobacillus Rhamnosus 10 Billion CFU Capsule GT SCH ×2 (09:09→20:49)
[2016-09-15] MEDS: Multivitamin w/ Minerals Tab GT SCH (09:10)
[2016-09-15] MEDS: Meropenem 500 MG in Sodium Chloride 0.9% 100 ML IV SCH (09:12)
[2016-09-15] MEDS ORDERED: Potassium Chloride Elixir 20 mEq /15 mL UDC GT ONE (13:03)
--- NOTE | 2016-09-15 13:06 | Internal Medicine Prog Note ---
Internal Medicine Subjective - Subjective Patient seen and examined:: with staff, chart reviewed Patient is:: asleep, non-verbal, non-interactive Patient Complaints of:: congestion Per staff patient is:: no adverse event, agitated, combative, noncompliant, confused Internal Medicine Objective - Results Result Diagrams: 09/15/16 05:28 09/15/16 05:28 Recent Labs: Laboratory Last Values WBC 10.3 Th/cmm (4.8-10.8) D 09/15/16 05:28 RBC 2.98 Mil/cmm (3.80-5.10) L 09/15/16 05:28 Hgb 9.1 gm/dL (11.7-15.5) L 09/15/16 05:28 Hct 27.1 % (35.0-45.0) L 09/15/16 05:28 MCV 91.1 fl (81-100) 09/15/16 05:28 MCH 30.6 pg (27.0-31.0) 09/15/16 05:28 MCHC Differential 33.6 pg (28.0-36.0) 09/15/16 05:28 RDW 13.8 % (11.5-20.0) 09/15/16 05:28 Plt Count 142 Th/cmm (150-400) L 09/15/16 05:28 MPV 10.6 fl 09/15/16 05:28 Neutrophils % 73.4 % (40.0-80.0) 09/15/16 05:28 Band Neutrophils % 3 % (0-10) 09/14/16 09:00 Lymphocytes % 16.9 % (20.0-50.0) L 09/15/16 05:28 Monocytes % 5.3 % (2.0-10.0) 09/15/16 05:28 Eosinophils % 3.8 % (0.0-5.0) 09/15/16 05:28 Basophils % 0.6 % (0.0-2.0) 09/15/16 05:28 Neutrophils (Manual) 89 % (40-80) H 09/14/16 09:00 Lymphocytes 3 % (20-50) L 09/14/16 09:00 Monocytes 2 % (2-10) 09/14/16 09:00 Eosinophils 3 % (0-5) 09/14/16 09:00 Basophils 0 % (0-3) 09/12/16 17:20 Platelet Estimate ADEQUATE (NORMAL) 09/14/16 09:00 Platelet Morphology NORMAL (NORMAL) 09/13/16 05:34 RBC Morph Micro Appear NORMAL (NORMAL) 09/14/16 09:00 PT 10.3 SECONDS (9.5-11.5) 09/12/16 17:20 INR 0.99 (0.5-1.4) 09/12/16 17:20 PTT (Actin FS) 20.7 SECONDS (26.0-38.0) L 09/12/16 17:20 Specimen Source Arterial 09/14/16 09:12 Sample Site Left Radial 09/14/16 09:12 pH 7.47 (7.35-7.45) H 09/14/16 09:12 pCO2 38.0 mmHg (35.0-45.0) 09/14/16 09:12 pO2 159.0 mmHg (80.0-100.0) H 09/14/16 09:12 HCO3 28.0 mEq/L (20.0-26.0) H 09/14/16 09:12 Base Excess 3.9 mEq/L (-3.0-3.0) H 09/14/16 09:12 O2 Saturation 100.0 % (92.0-100.0) 09/14/16 09:12 Luis Miguel Test PASS 09/14/16 09:12 Vent Rate 12 09/14/16 09:12 Inspired O2 30 09/14/16 09:12 Critical Value PW 09/14/16 09:12 Sodium 145 mEq/L (136-145) 09/15/16 05:28 Potassium 3.1 mEq/L (3.5-5.1) L 09/15/16 05:28 Chloride 115 mEq/L (98-107) H 09/15/16 05:28 Carbon Dioxide 24.3 mEq/L (21.0-31.0) 09/15/16 05:28 Anion Gap 8.8 (7.0-16.0) 09/15/16 05:28 BUN 46 mg/dL (7-25) H 09/15/16 05:28 Creatinine 0.6 mg/dL (0.6-1.2) 09/15/16 05:28 Est GFR ( Amer) > 60.0 ml/min (>90) 09/15/16 05:28 Est GFR (Non-Af Amer) > 60.0 ml/min 09/15/16 05:28 BUN/Creatinine Ratio 76.7 09/15/16 05:28 Glucose 296 mg/dL (70-105) H 09/15/16 05:28 Hemoglobin A1c % 6.6 % (4.0-6.0) H 09/12/16 17:20 Whole Bld Lactic Acid 1.22 mmol/L (0.60-1.99) 09/12/16 19:20 Calcium 8.9 mg/dL (8.6-10.3) 09/15/16 05:28 Magnesium 2.2 mg/dL (1.9-2.7) 09/15/16 05:28 Total Bilirubin 0.3 mg/dL (0.3-1.0) 09/15/16 05:28 AST 12 U/L (13-39) L 09/15/16 05:28 ALT 17 U/L (7-52) 09/15/16 05:28 Alkaline Phosphatase 47 U/L (34-104) 09/15/16 05:28 Ammonia 29 umol/L (16-53) 09/15/16 05:28 Creatine Kinase 83 U/L (30-223) 09/12/16 17:20 B-Natriuretic Peptide 97.4 pg/mL (5.0-100.0) 09/14/16 09:00 Total Protein 6.7 gm/dL (6.0-8.3) 09/15/16 05:28 Albumin 3.3 gm/dL (3.7-5.3) L 09/15/16 05:28 Globulin 3.4 gm/dL 09/15/16 05:28 Albumin/Globulin Ratio 1.0 (1.0-1.8) 09/15/16 05:28 TSH 1.54 uIU/ml (0.34-5.60) 09/13/16 05:34 Urine Source CATH 09/12/16 17:05 Urine Color YELLOW 09/12/16 17:05 Urine Clarity CLOUDY (CLEAR) H 09/12/16 17:05 Urine pH 8.5 09/12/16 17:05 Ur Specific [place] 1.015 (1.005-1.030) 09/12/16 17:05 Urine Protein 100 mg/dL (NEGATIVE) H 09/12/16 17:05 Urine Glucose (UA) NEGATIVE mg/dL (NEGATIVE) 09/12/16 17:05 Urine Ketones NEGATIVE mg/dL (NEGATIVE) 09/12/16 17:05 Urine Blood SMALL (NEGATIVE) H 09/12/16 17:05 Urine Nitrate POSITIVE (NEGATIVE) H 09/12/16 17:05 Urine Bilirubin NEGATIVE (NEGATIVE) 09/12/16 17:05 Urine Urobilinogen 0.2 E.U./dL (0.2 - 1.0) 09/12/16 17:05 Ur Leukocyte Esterase SMALL (NEGATIVE) H 09/12/16 17:05 Urine RBC 5-10 /hpf (0-5) H 09/12/16 17:05 Urine WBC 6-10 /hpf (0-5) H 09/12/16 17:05 Ur Epithelial Cells MANY /lpf (FEW) 09/12/16 17:05 Triple Phos Crystals MANY /hpf (FEW) 09/12/16 17:05 Urine Bacteria MANY /hpf (NONE SEEN) 09/12/16 17:05 Vancomycin Trough 19.4 ug/mL (10-20) 09/14/16 09:00 - Physical Exam Vitals and I&O: Vital Signs Temp 98.1 F 09/15/16 08:00 Pulse 99 09/15/16 08:00 Resp 20 09/15/16 08:00 BP 111/58 09/15/16 08:00 Pulse Ox 98 09/15/16 07:10 Intake & Output 09/14/16 09/15/16 09/15/16 18:59 06:59 18:59 Intake Total 2764.167 3550 120 Output Total 750 Balance 2014167 3550 120 Intake: Intake, IV Amount 2104.167 2100 Dextrose 5% 1,000 ml @ 0940.572 9454 125 mls/hr IV .Q8H DC Rx #:[id number] Meropenem 500 mg In 100 100 Sodium Chloride 0.9% 100 ml @ 100 mls/hr IV Q12HR DC Rx#:[id number] Vancomycin HCl 1 gm In 250 Sodium Chloride 0.9% 250 ml @ 165 mls/hr IV Q24H DC Rx#:[id number] Oral 0 Tube Feeding 660 1080 120 Other 370 Output: Urine 750 Other: # Voids 1 3 # Bowel Movements 2 Stool Characteristics Soft Soft Soft Liquid Liquid Liquid Brown Brown Active Medications: Current Medications Acetaminophen (Tylenol 650mg/20.3ml Suspension) 650 mg GT Q6HR PRN PRN Reason: Pain or Fever >101 Stop: 11/11/16 20:15 Last Admin: 09/13/16 14:58 Dose: 650 mg Acetaminophen/Hydrocodone Bitart ([place] 5mg/325mg) 1 tab GT Q4H PRN PRN Reason: Pain (Severe) Stop: 11/11/16 20:19 Last Admin: 09/13/16 21:48 Dose: 1 tab Albuterol/Ipratropium (Duoneb Neb) 3 ml HHN Q6HRT [facility] Stop: 11/12/16 12:59 Last Admin: 09/15/16 12:14 Dose: 3 ml Ascorbic Acid (Vitamin C) 500 mg GT DAILY [facility] Stop: 11/12/16 08:59 Last Admin: 09/15/16 09:09 Dose: 500 mg Bisacodyl (Dulcolax 10 Mg Supp) 10 mg RC DAILY PRN PRN Reason: IF MOM INEFFECTIVE Stop: 11/11/16 20:15 Guaifenesin (Robitussin) 200 mg GT Q4HR PRN PRN Reason: Cough or Congestion Stop: 11/11/16 20:19 Heparin Sodium (Porcine) (Heparin) 5,000 units SUBQ Q12HR [facility] Stop: 11/11/16 20:59 Last Admin: 09/15/16 09:10 Dose: 5,000 units Vancomycin HCl 1 gm/ Sodium (Chloride) 250 mls @ 165 mls/hr IV Q24H [facility] Stop: 11/12/16 09:59 Last Admin: 09/15/16 09:19 Dose: 165 mls/hr Meropenem 500 mg/ Sodium (Chloride) 100 mls @ 100 mls/hr IV Q12HR [facility] Stop: 11/12/16 13:59 Last Admin: 09/15/16 09:12 Dose: 100 mls/hr Dextrose (D5w) 1,000 mls @ 80 mls/hr IV .[id number] [facility] Stop: 11/14/16 12:55 Lactobacillus Rhamnosus (Culturelle) 1 each GT Q12H DC Stop: 11/12/16 08:59 Last Admin: 09/15/16 09:09 Dose: 1 each Loperamide HCl (Imodium 1mg/5ml Suspension) 2 mg GT Q4H PRN PRN Reason: Diarrhea Lorazepam (Ativan) 0.5 mg GT Q6H PRN; Protocol PRN Reason: Anxiety Stop: 11/11/16 20:15 Last Admin: 09/13/16 21:48 Dose: 0.5 mg Magnesium Hydroxide (Milk Of Magnesia) 30 ml GT HS PRN PRN Reason: Constipation Stop: 11/11/16 20:15 Miscellaneous (Vancomycin Iv Per Pharmacy) 1 ea MC PRN DC Stop: 11/11/16 20:29 Mupirocin (Bactroban Oint) 1 appl TP BID DC Stop: 09/19/16 16:59 Last Admin: 09/15/16 09:08 Dose: 1 appl Ondansetron HCl (Zofran) 4 mg IV Q8H PRN PRN Reason: Nausea / Vomiting Stop: 11/11/16 20:19 Pantoprazole Sodium (Protonix) 40 mg GT Q24H DC Stop: 11/13/16 08:59 Last Admin: 09/15/16 09:09 Dose: 40 mg Potassium Chloride (Potassium Chloride Elixir) 40 meq GT X1 ONE Stop: 09/15/16 13:04 Sodium Phosphate (Fleet Enema) 135 ml RC Q48H PRN PRN Reason: IF DULCOLAX INEFFECTIVE Stop: 11/11/16 20:15 General: lethargic, demented HEENT: NC/AT, PERRLA Neck: Supple Lungs: congested, rales, ronchi Cardiovascular: RRR, Normal S1, Normal S2 Abdomen: soft non-tender, thin, +GT, positive bowel sound Extremities: excoriation, contracture Neurological: no change - Procedures Procedures: Procedures Procedure Code Date I[place] [address]252 04/15/16 IMMUNIZATION ADMIN 06581 04/15/16 INSERT PICC CATH 35517 04/15/16 INSERTION OF INFUSION DEVICE INTO R ATRIUM, PERC APPROACH [id number] 04/15/16 INTRODUCTION OF SERUM/TOX/VACCINE INTO MUSCLE, PERC APPROACH [id number] 04/15/16 Internal Medicine Assmt/Plan - Assessment Assessment: severe sepsis acute respiratory failure dementia acute renal failure electroytes abn - Plan Plan: cont on bipap pulm follow up renal follow up correct lytes cont on iv abx dw jose l garcias fuction improving will replace lytes Nutritional Asmnt/Malnutr-PDOC - Dietary Evaluation Malnutrition Findings (Please click <Entered> for more info): Nutritional Asmnt/Malnutrition Start: 09/13/16 11: 06 Text: Status: Complete Freq: Document 09/13/16 11:06 GSUN (Rec: 09/13/16 11:16 GSUN [email or web address]) Nutritional Asmnt/Malnutrition Patient General Information Nutritional Screening Consult Diagnosis ER: Sepsis, acute UTI, acute dehydration, actue renal failure Pertinent Medical Hx/Surgical Hx ER: dementia, HTN, depression, schizophrenia Subjective Information 65 year old female from SNF. Pt admitted for acute severe abnormal labs. RD consult wound. Pt was soundly asleep during visit, did not wake to RD's call, palced on bipap after RD's visit. Observed tube feeding infusing as ordered. Unable to obtain CBW due to bedscale on special settings. Mild wastings to temporals. Spoke to RN, tolerating tube feeding, no diarrhea. RN also stated pt appeared to be in critical state. Current Diet Order/ Nutrition Support Diabetisource 60ml/hr x 24hrs, providing 1440kcal, 72g protein. Pertinent Medications Vitamin C, D5, Culturelle, MOM , Vancomycin, Zofran, Protonix , Fleet Enema Pertinent Labs 09/12: sodium 156H, BUN 112H, creatinine 1.3H, glucose 226H, A1c 6.6H 09/11: sodium 160H, BUN 101H, glucose 239H Nutritional Hx/Data Height 1.63 m Height (Calculated Centimeters) 162.6 Current Weight (lbs) 62.142 kg Weight (Calculated Kilograms) 62.1 Weight (Calculated Grams) 22295.2 [place] Body Weight 120 Weight Status Approriate GI Symptoms Food Allergies No Cultural/Ethnic/Tenriism Belief SNF order: glucerna 1.2 at 60ml/hrs x 20hrs, on at 2pm off at 10am, providing 1440kcal. Water flush 150ml every shift. Skin Integrity/Comment: Ruslan Tian. ward service supervisor: coccyx pressure area. No wound care note yet. Estimated Nutritional Goals Calories/Kcals/Kg IBW 120lb/54.5kg Kcals Calculated 1635-1908kcal (30-35kcal/kg, sepsis) Protein Calculated 71-87g (1.3-1.6g/kg, sepsis, ? wound) Fluid: ml 1635-1908ml (1ml/kcal) Nutritional Problem 1. Problem Problem Increased nutrient needs related to Etiology hypermetabolic state aeb Signs/Symptoms: ER: sepsis Intervention/Recommendation Comments 1. When medically appropriate, recommend increasing Diabetisource to 70ml/hr x 20hrs, providing 1680kcal, 84g protein, 1145ml free water. Current order meeting 88% of lower end of estimated nutritional needs with consideration of diagnoses. Expected Outcomes/Goals Expected Outcomes/Goals 1. Pt to meet 100% estimated nutritional needs on tube feeding with tolerance.
--- NOTE | 2016-09-15 13:08 | History & Physical ---
CHIEF COMPLAINT: Change in mental status, generalized weakness with elevated BUN and creatinine/abnormal labs. HISTORY OF PRESENT ILLNESS: This is a 65-year-old unfortunate ____ female with history of dementia, severe malnutrition, dysphagia, status post G-tube, previous pneumonia, chronic airway disease, was admitted from nursing facility secondary to generalized weakness. The patient with noted elevated BUN of greater than 100. The patient is barely responsive. The patient seen in the Emergency Room and noted to have severe sepsis. The patient admitted for further management. PAST MEDICAL HISTORY: As mentioned in history present illness. PAST SURGICAL HISTORY: Status post PEG, ____. ALLERGIES: PENICILLIN. MEDICATIONS: Tylenol, cranberry pills, Mylanta, tramadol, ascorbic acid, lactobacillus, magnesium ____, pantoprazole. FAMILY HISTORY: Noncontributory. SOCIAL HISTORY: The patient lives in [facility]. The patient requiring 24-hour total care. CODE STATUS: DNR. REVIEW OF SYSTEMS: This is limited secondary to the patient's current mental status. We will try to obtain more detailed review of systems at a later date by talking to family members. There is a sister, but she also has psych disorder. There is case management specialist, Padmini ____, number [phone] and ____, neonatal social worker [phone]. Also, try to get information from nursing staff at _[facility], number [phone]. PHYSICAL EXAMINATION: VITAL SIGNS: Blood pressure 109/57, respirations 22, pulse 113, temperature 98.2. GENERAL: Elderly female, appears stated age, chronically ill. NECK: Supple, no mass, on BiPAP. LUNGS: Equal breath sounds, few rhonchi. HEART: Sinus tachycardia. No appreciable murmur. ABDOMEN: Soft, nontender. ____ G-tube. EXTREMITIES: ____. NEUROLOGIC: Limited. PERTINENT LABORATORY DATA: WBC of 23,000, hemoglobin 11, platelets 202, pCO2 of 62, pO2 of 40. Sodium 160, potassium ____, BUN 101, creatinine 1.1. Blood sugar was ____. UA 10 wbc, many bacteria. ASSESSMENT: Acute respiratory failure, leukocytosis, urinary tract infection, severe sepsis, anemia, hypoxemia, hypernatremia, acute renal failure, status post decubitus ulcer, dementia, schizoaffective disorder. PLAN: We will continue patient on aggressive IV hydration. We will refer the patient to Pulmonary as well as Renal. We will perform renal ultrasound. Continue oxygen and bronchodilator treatment. Continue on vancomycin. We will change antibiotic to ____. We will continue to monitor the patient closely. Case was discussed with Dr. Gonzalez as well as Dr. Gardner as well as nursing staff. We will move the patient to ICU. JOB# [id number]
--- NOTE | 2016-09-15 13:11 | General Progress Note ---
Subjective - Review of Systems Service Date: 09/15/16 (subjectively better off bipap breathing on her own adequate o2 sat with room air) Objective - Results Result Diagrams: 09/15/16 05:28 09/15/16 05:28 Recent Labs: Laboratory Last Values WBC 10.3 Th/cmm (4.8-10.8) D 09/15/16 05:28 RBC 2.98 Mil/cmm (3.80-5.10) L 09/15/16 05:28 Hgb 9.1 gm/dL (11.7-15.5) L 09/15/16 05:28 Hct 27.1 % (35.0-45.0) L 09/15/16 05:28 MCV 91.1 fl (81-100) 09/15/16 05:28 MCH 30.6 pg (27.0-31.0) 09/15/16 05:28 MCHC Differential 33.6 pg (28.0-36.0) 09/15/16 05:28 RDW 13.8 % (11.5-20.0) 09/15/16 05:28 Plt Count 142 Th/cmm (150-400) L 09/15/16 05:28 MPV 10.6 fl 09/15/16 05:28 Neutrophils % 73.4 % (40.0-80.0) 09/15/16 05:28 Band Neutrophils % 3 % (0-10) 09/14/16 09:00 Lymphocytes % 16.9 % (20.0-50.0) L 09/15/16 05:28 Monocytes % 5.3 % (2.0-10.0) 09/15/16 05:28 Eosinophils % 3.8 % (0.0-5.0) 09/15/16 05:28 Basophils % 0.6 % (0.0-2.0) 09/15/16 05:28 Neutrophils (Manual) 89 % (40-80) H 09/14/16 09:00 Lymphocytes 3 % (20-50) L 09/14/16 09:00 Monocytes 2 % (2-10) 09/14/16 09:00 Eosinophils 3 % (0-5) 09/14/16 09:00 Basophils 0 % (0-3) 09/12/16 17:20 Platelet Estimate ADEQUATE (NORMAL) 09/14/16 09:00 Platelet Morphology NORMAL (NORMAL) 09/13/16 05:34 RBC Morph Micro Appear NORMAL (NORMAL) 09/14/16 09:00 PT 10.3 SECONDS (9.5-11.5) 09/12/16 17:20 INR 0.99 (0.5-1.4) 09/12/16 17:20 PTT (Actin FS) 20.7 SECONDS (26.0-38.0) L 09/12/16 17:20 Specimen Source Arterial 09/14/16 09:12 Sample Site Left Radial 09/14/16 09:12 pH 7.47 (7.35-7.45) H 09/14/16 09:12 pCO2 38.0 mmHg (35.0-45.0) 09/14/16 09:12 pO2 159.0 mmHg (80.0-100.0) H 09/14/16 09:12 HCO3 28.0 mEq/L (20.0-26.0) H 09/14/16 09:12 Base Excess 3.9 mEq/L (-3.0-3.0) H 09/14/16 09:12 O2 Saturation 100.0 % (92.0-100.0) 09/14/16 09:12 Luis Miguel Test PASS 09/14/16 09:12 Vent Rate 12 09/14/16 09:12 Inspired O2 30 09/14/16 09:12 Critical Value PW 09/14/16 09:12 Sodium 145 mEq/L (136-145) 09/15/16 05:28 Potassium 3.1 mEq/L (3.5-5.1) L 09/15/16 05:28 Chloride 115 mEq/L (98-107) H 09/15/16 05:28 Carbon Dioxide 24.3 mEq/L (21.0-31.0) 09/15/16 05:28 Anion Gap 8.8 (7.0-16.0) 09/15/16 05:28 BUN 46 mg/dL (7-25) H 09/15/16 05:28 Creatinine 0.6 mg/dL (0.6-1.2) 09/15/16 05:28 Est GFR ( Amer) > 60.0 ml/min (>90) 09/15/16 05:28 Est GFR (Non-Af Amer) > 60.0 ml/min 09/15/16 05:28 BUN/Creatinine Ratio 76.7 09/15/16 05:28 Glucose 296 mg/dL (70-105) H 09/15/16 05:28 Hemoglobin A1c % 6.6 % (4.0-6.0) H 09/12/16 17:20 Whole Bld Lactic Acid 1.22 mmol/L (0.60-1.99) 09/12/16 19:20 Calcium 8.9 mg/dL (8.6-10.3) 09/15/16 05:28 Magnesium 2.2 mg/dL (1.9-2.7) 09/15/16 05:28 Total Bilirubin 0.3 mg/dL (0.3-1.0) 09/15/16 05:28 AST 12 U/L (13-39) L 09/15/16 05:28 ALT 17 U/L (7-52) 09/15/16 05:28 Alkaline Phosphatase 47 U/L (34-104) 09/15/16 05:28 Ammonia 29 umol/L (16-53) 09/15/16 05:28 Creatine Kinase 83 U/L (30-223) 09/12/16 17:20 B-Natriuretic Peptide 97.4 pg/mL (5.0-100.0) 09/14/16 09:00 Total Protein 6.7 gm/dL (6.0-8.3) 09/15/16 05:28 Albumin 3.3 gm/dL (3.7-5.3) L 09/15/16 05:28 Globulin 3.4 gm/dL 09/15/16 05:28 Albumin/Globulin Ratio 1.0 (1.0-1.8) 09/15/16 05:28 TSH 1.54 uIU/ml (0.34-5.60) 09/13/16 05:34 Urine Source CATH 09/12/16 17:05 Urine Color YELLOW 09/12/16 17:05 Urine Clarity CLOUDY (CLEAR) H 09/12/16 17:05 Urine pH 8.5 09/12/16 17:05 Ur Specific [place] 1.015 (1.005-1.030) 09/12/16 17:05 Urine Protein 100 mg/dL (NEGATIVE) H 09/12/16 17:05 Urine Glucose (UA) NEGATIVE mg/dL (NEGATIVE) 09/12/16 17:05 Urine Ketones NEGATIVE mg/dL (NEGATIVE) 09/12/16 17:05 Urine Blood SMALL (NEGATIVE) H 09/12/16 17:05 Urine Nitrate POSITIVE (NEGATIVE) H 09/12/16 17:05 Urine Bilirubin NEGATIVE (NEGATIVE) 09/12/16 17:05 Urine Urobilinogen 0.2 E.U./dL (0.2 - 1.0) 09/12/16 17:05 Ur Leukocyte Esterase SMALL (NEGATIVE) H 09/12/16 17:05 Urine RBC 5-10 /hpf (0-5) H 09/12/16 17:05 Urine WBC 6-10 /hpf (0-5) H 09/12/16 17:05 Ur Epithelial Cells MANY /lpf (FEW) 09/12/16 17:05 Triple Phos Crystals MANY /hpf (FEW) 09/12/16 17:05 Urine Bacteria MANY /hpf (NONE SEEN) 09/12/16 17:05 Vancomycin Trough 19.4 ug/mL (10-20) 09/14/16 09:00 - Physical Exam Vitals and I&O: Vital Signs Temp 98.1 F 09/15/16 08:00 Pulse 99 09/15/16 08:00 Resp 20 09/15/16 08:00 BP 111/58 09/15/16 08:00 Pulse Ox 98 09/15/16 07:10 Intake & Output 09/14/16 09/15/16 09/15/16 18:59 06:59 18:59 Intake Total 2764.167 3550 120 Output Total 750 Balance 167 3550 120 Intake: Intake, IV Amount 2104.167 2100 Dextrose 5% 1,000 ml @ 1885.074 7617 125 mls/hr IV .Q8H [facility] Rx #:[id number] Meropenem 500 mg In 100 100 Sodium Chloride 0.9% 100 ml @ 100 mls/hr IV Q12HR [facility] Rx#:[id number] Vancomycin HCl 1 gm In 250 Sodium Chloride 0.9% 250 ml @ 165 mls/hr IV Q24H [facility] Rx#:[id number] Oral 0 Tube Feeding 660 1080 120 Other 370 Output: Urine 750 Other: # Voids 1 3 # Bowel Movements 2 Stool Characteristics Soft Soft Soft Liquid Liquid Liquid Brown Brown Active Medications: Current Medications Acetaminophen (Tylenol 650mg/20.3ml Suspension) 650 mg GT Q6HR PRN PRN Reason: Pain or Fever >101 Stop: 11/11/16 20:15 Last Admin: 09/13/16 14:58 Dose: 650 mg Acetaminophen/Hydrocodone Bitart ([place] 5mg/325mg) 1 tab GT Q4H PRN PRN Reason: Pain (Severe) Stop: 11/11/16 20:19 Last Admin: 09/13/16 21:48 Dose: 1 tab Albuterol/Ipratropium (Duoneb Neb) 3 ml HHN Q6HRT [facility] Stop: 11/12/16 12:59 Last Admin: 09/15/16 12:14 Dose: 3 ml Ascorbic Acid (Vitamin C) 500 mg GT DAILY [facility] Stop: 11/12/16 08:59 Last Admin: 09/15/16 09:09 Dose: 500 mg Bisacodyl (Dulcolax 10 Mg Supp) 10 mg RC DAILY PRN PRN Reason: IF MOM INEFFECTIVE Stop: 11/11/16 20:15 Guaifenesin (Robitussin) 200 mg GT Q4HR PRN PRN Reason: Cough or Congestion Stop: 11/11/16 20:19 Heparin Sodium (Porcine) (Heparin) 5,000 units SUBQ Q12HR [facility] Stop: 11/11/16 20:59 Last Admin: 09/15/16 09:10 Dose: 5,000 units Vancomycin HCl 1 gm/ Sodium (Chloride) 250 mls @ 165 mls/hr IV Q24H [facility] Stop: 11/12/16 09:59 Last Admin: 09/15/16 09:19 Dose: 165 mls/hr Meropenem 500 mg/ Sodium (Chloride) 100 mls @ 100 mls/hr IV Q12HR [facility] Stop: 11/12/16 13:59 Last Admin: 09/15/16 09:12 Dose: 100 mls/hr Dextrose (D5w) 1,000 mls @ 80 mls/hr IV .[id number] [facility] Stop: 11/14/16 12:55 Lactobacillus Rhamnosus (Culturelle) 1 each GT Q12H [facility] Stop: 11/12/16 08:59 Last Admin: 09/15/16 09:09 Dose: 1 each Loperamide HCl (Imodium 1mg/5ml Suspension) 2 mg GT Q4H PRN PRN Reason: Diarrhea Lorazepam (Ativan) 0.5 mg GT Q6H PRN; Protocol PRN Reason: Anxiety Stop: 11/11/16 20:15 Last Admin: 09/13/16 21:48 Dose: 0.5 mg Magnesium Hydroxide (Milk Of Magnesia) 30 ml GT HS PRN PRN Reason: Constipation Stop: 11/11/16 20:15 Miscellaneous (Vancomycin Iv Per Pharmacy) 1 ea MC PRN DC Stop: 11/11/16 20:29 Mupirocin (Bactroban Oint) 1 appl TP BID [facility] Stop: 09/19/16 16:59 Last Admin: 09/15/16 09:08 Dose: 1 appl Ondansetron HCl (Zofran) 4 mg IV Q8H PRN PRN Reason: Nausea / Vomiting Stop: 11/11/16 20:19 Pantoprazole Sodium (Protonix) 40 mg GT Q24H [facility] Stop: 11/13/16 08:59 Last Admin: 09/15/16 09:09 Dose: 40 mg Potassium Chloride (Potassium Chloride Elixir) 40 meq GT X1 ONE Stop: 09/15/16 13:04 Sodium Phosphate (Fleet Enema) 135 ml RC Q48H PRN PRN Reason: IF DULCOLAX INEFFECTIVE Stop: 11/11/16 20:15 General: No acute distress, Other (open eyes when stimulated) Neck: Supple Cardiovascular: Regular rate Lungs: Clear to auscultation Abdomen: Bowel sounds (normal soft no distention) Psych/Mental Status: Mental status NL, Other (open eyes still not interractive) - Procedures Procedures: Procedures Procedure Code Date IIV [place] IM [address] 04/15/16 IMMUNIZATION ADMIN 92865 04/15/16 INSERT PICC CATH 58909 04/15/16 INSERTION OF INFUSION DEVICE INTO R ATRIUM, PERC APPROACH [id number] 04/15/16 INTRODUCTION OF SERUM/TOX/VACCINE INTO MUSCLE, PERC APPROACH [id number] 04/15/16 Assessment/Plan - Problem List Patient Problems: All Active Problems FEVER WITH ELEVATED WBC, BUN (Acute) Hyperosmolality and hypernatremia (Acute) E87.0 azotemia better (Acute) Weakness (Acute) Nutritional Asmnt/Malnutr-PDOC - Dietary Evaluation Malnutrition Findings (Please click <Entered> for more info): Nutritional Asmnt/Malnutrition Start: 09/13/16 11: 06 Text: Status: Complete Freq: Document 09/13/16 11:06 CHUY (Rec: 09/13/16 11:16 [id number] [email or web address]) Nutritional Asmnt/Malnutrition Patient General Information Nutritional Screening Consult Diagnosis ER: Sepsis, acute UTI, acute dehydration, actue renal failure Pertinent Medical Hx/Surgical Hx ER: dementia, HTN, depression, schizophrenia Subjective Information 65 year old female from SNF. Pt admitted for acute severe abnormal labs. RD consult wound. Pt was soundly asleep during visit, did not wake to RD's call, palced on bipap after RD's visit. Observed tube feeding infusing as ordered. Unable to obtain CBW due to bedscale on special settings. Mild wastings to temporals. Spoke to RN, tolerating tube feeding, no diarrhea. RN also stated pt appeared to be in critical state. Current Diet Order/ Nutrition Support Diabetisource 60ml/hr x 24hrs, providing 1440kcal, 72g protein. Pertinent Medications Vitamin C, D5, Culturelle, MOM , Vancomycin, Zofran, Protonix , Fleet Enema Pertinent Labs /4: sodium 156H, BUN 112H, creatinine 1.3H, glucose 226H, A1c 6.6H 4/3: sodium 160H, BUN 101H, glucose 239H Nutritional Hx/Data Height 1.63 m Height (Calculated Centimeters) 162.6 Current Weight (lbs) 62.142 kg Weight (Calculated Kilograms) 62.1 Weight (Calculated Grams) 19748.2 [place] Body Weight 120 Weight Status Approriate GI Symptoms Food Allergies No Cultural/Ethnic/[employer] Belief SNF order: glucerna 1.2 at 60ml/hrs x 20hrs, on at 2pm off at 10am, providing 1440kcal. Water flush 150ml every shift. Skin Integrity/Comment: Ruslan Tian. training generalist: coccyx pressure area. No wound care note yet. Estimated Nutritional Goals Calories/Kcals/Kg IBW 120lb/54.5kg Kcals Calculated 1635-1908kcal (30-35kcal/kg, sepsis) Protein Calculated 71-87g (1.3-1.6g/kg, sepsis, ? wound) Fluid: ml 1635-1908ml (1ml/kcal) Nutritional Problem 1. Problem Problem Increased nutrient needs related to Etiology hypermetabolic state aeb Signs/Symptoms: ER: sepsis Intervention/Recommendation Comments 1. When medically appropriate, recommend increasing Diabetisource to 70ml/hr x 20hrs, providing 1680kcal, 84g protein, 1145ml free water. Current order meeting 88% of lower end of estimated nutritional needs with consideration of diagnoses. Expected Outcomes/Goals Expected Outcomes/Goals 1. Pt to meet 100% estimated nutritional needs on tube feeding with tolerance.
[2016-09-15 14:19] LABS: FOLIC ACID >20.0 ng/mL (>3.0)
[2016-09-15] MEDS: Hydrocodone/APAP 5mg/325mg Tab GT PRN (18:30)
[2016-09-16] MEDS: Albuterol/Ipratropium Neb 3 ML AERS HHN SCH ×4 (01:30→18:49)
[2016-09-16 06:27] LABS: % BASOPHILS 0.2 % (0.0-2.0); % EOSINOPHILS 3.2 % (0.0-5.0); % LYMPHOCYTES 21.4 % (20.0-50.0); % MONOCYTES 5.3 % (2.0-10.0); % NEUTROPHILS 69.9 % (40.0-80.0); HEMATOCRIT 27.8 % (35.0-45.0); HEMOGLOBIN 9.7 gm/dL (11.7-15.5); MEAN CELL VOLUME 89.9 fl (81-100); MEAN CORPUSCULAR HEMOGLOBIN 31.4 pg (27.0-31.0); MEAN PLATELET VOLUME 10.9 fl; NEUTROPHILE ABSOLUTE 5.9 Th/cmm (1.8-8.0); PLATELET COUNT 156 Th/cmm (150-400); RED BLOOD COUNT 3.09 Mil/cmm (3.80-5.10); RED CELL DISTRIBUTION WIDTH 14.2 % (11.5-20.0); WHITE BLOOD COUNT 8.5 Th/cmm (4.8-10.8)
[2016-09-16] MEDS: Dextrose 5% 1,000 ML IV SCH (06:28)
[2016-09-16 06:38] LABS: BUN - UREA NITROGEN 37 mg/dL (7-25); CARBON DIOXIDE 26.1 mEq/L (21.0-31.0); CHLORIDE 114 mEq/L (98-107); CREATININE - SERUM 0.5 mg/dL (0.6-1.2); GLUCOSE 214 mg/dL (70-105); MAGNESIUM 2.3 mg/dL (1.9-2.7); POTASSIUM SERUM 3.1 mEq/L (3.5-5.1); SODIUM SERUM 146 mEq/L (136-145)
[2016-09-16] MEDS: Ascorbic Acid 500 mg/5 mL UDC GT SCH (08:46)
[2016-09-16] MEDS: Pantoprazole 40 mg/Packet GT SCH (08:46)
[2016-09-16] MEDS: Multivitamin w/ Minerals Tab GT SCH (08:47)
[2016-09-16] MEDS: Lactobacillus Rhamnosus 10 Billion CFU Capsule GT SCH ×2 (08:47→20:25)
[2016-09-16] MEDS ORDERED: KCL 20mEq/100mL Premix 40 MEQ/200 ML PIGGYBACK IV SCH (09:20)
[2016-09-16] MEDS: Venelex 60gm Tube TP SCH (09:30)
[2016-09-16] MEDS ORDERED: Potassium Chloride 40 MEQ, Lidocaine 1% 20mL Vial 25 MG in Sodium Chloride 0.9% 250 ML IV SCH (10:15)
--- NOTE | 2016-09-16 13:30 | Internal Medicine Prog Note ---
Internal Medicine Subjective - Subjective Patient seen and examined:: with staff, chart reviewed Patient is:: asleep, non-verbal, non-interactive Patient Complaints of:: congestion Per staff patient is:: no adverse event, no episodes of fall, agitated, confused Internal Medicine Objective - Results Result Diagrams: 09/16/16 06:02 09/16/16 06:02 Recent Labs: Laboratory Last Values WBC 8.5 Th/cmm (4.8-10.8) 09/16/16 06:02 RBC 3.09 Mil/cmm (3.80-5.10) L 09/16/16 06:02 Hgb 9.7 gm/dL (11.7-15.5) L 09/16/16 06:02 Hct 27.8 % (35.0-45.0) L 09/16/16 06:02 MCV 89.9 fl (81-100) 09/16/16 06:02 MCH 31.4 pg (27.0-31.0) H 09/16/16 06:02 MCHC Differential 35.0 pg (28.0-36.0) 09/16/16 06:02 RDW 14.2 % (11.5-20.0) 09/16/16 06:02 Plt Count 156 Th/cmm (150-400) 09/16/16 06:02 MPV 10.9 fl 09/16/16 06:02 Neutrophils % 69.9 % (40.0-80.0) 09/16/16 06:02 Band Neutrophils % 3 % (0-10) 09/14/16 09:00 Lymphocytes % 21.4 % (20.0-50.0) 09/16/16 06:02 Monocytes % 5.3 % (2.0-10.0) 09/16/16 06:02 Eosinophils % 3.2 % (0.0-5.0) 09/16/16 06:02 Basophils % 0.2 % (0.0-2.0) 09/16/16 06:02 Neutrophils (Manual) 89 % (40-80) H 09/14/16 09:00 Lymphocytes 3 % (20-50) L 09/14/16 09:00 Monocytes 2 % (2-10) 09/14/16 09:00 Eosinophils 3 % (0-5) 09/14/16 09:00 Basophils 0 % (0-3) 09/12/16 17:20 Platelet Estimate ADEQUATE (NORMAL) 09/14/16 09:00 Platelet Morphology NORMAL (NORMAL) 09/13/16 05:34 RBC Morph Micro Appear NORMAL (NORMAL) 09/14/16 09:00 PT 10.3 SECONDS (9.5-11.5) 09/12/16 17:20 INR 0.99 (0.5-1.4) 09/12/16 17:20 PTT (Actin FS) 20.7 SECONDS (26.0-38.0) L 09/12/16 17:20 Specimen Source Arterial 09/14/16 09:12 Sample Site Left Radial 09/14/16 09:12 pH 7.47 (7.35-7.45) H 09/14/16 09:12 pCO2 38.0 mmHg (35.0-45.0) 09/14/16 09:12 pO2 159.0 mmHg (80.0-100.0) H 09/14/16 09:12 HCO3 28.0 mEq/L (20.0-26.0) H 09/14/16 09:12 Base Excess 3.9 mEq/L (-3.0-3.0) H 09/14/16 09:12 O2 Saturation 100.0 % (92.0-100.0) 09/14/16 09:12 Luis Miguel Test PASS 09/14/16 09:12 Vent Rate 12 09/14/16 09:12 Inspired O2 30 09/14/16 09:12 Critical Value PW 09/14/16 09:12 Sodium 146 mEq/L (136-145) H 09/16/16 06:02 Potassium 3.1 mEq/L (3.5-5.1) L 09/16/16 06:02 Chloride 114 mEq/L (98-107) H 09/16/16 06:02 Carbon Dioxide 26.1 mEq/L (21.0-31.0) 09/16/16 06:02 Anion Gap 9.0 (7.0-16.0) 09/16/16 06:02 BUN 37 mg/dL (7-25) H 09/16/16 06:02 Creatinine 0.5 mg/dL (0.6-1.2) L 09/16/16 06:02 Est GFR ( Amer) > 60.0 ml/min (>90) 09/16/16 06:02 Est GFR (Non-Af Amer) > 60.0 ml/min 09/16/16 06:02 BUN/Creatinine Ratio 74.0 09/16/16 06:02 Glucose 214 mg/dL (70-105) H 09/16/16 06:02 Hemoglobin A1c % 6.6 % (4.0-6.0) H 09/12/16 17:20 Whole Bld Lactic Acid 1.22 mmol/L (0.60-1.99) 09/12/16 19:20 Calcium 9.0 mg/dL (8.6-10.3) 09/16/16 06:02 Magnesium 2.3 mg/dL (1.9-2.7) 09/16/16 06:02 Total Bilirubin 0.3 mg/dL (0.3-1.0) 09/15/16 05:28 AST 12 U/L (13-39) L 09/15/16 05:28 ALT 17 U/L (7-52) 09/15/16 05:28 Alkaline Phosphatase 47 U/L (34-104) 09/15/16 05:28 Ammonia 29 umol/L (16-53) 09/15/16 05:28 Creatine Kinase 83 U/L (30-223) 09/12/16 17:20 B-Natriuretic Peptide 127.0 pg/mL (5.0-100.0) H 09/16/16 06:02 Total Protein 6.7 gm/dL (6.0-8.3) 09/15/16 05:28 Albumin 3.3 gm/dL (3.7-5.3) L 09/15/16 05:28 Globulin 3.4 gm/dL 09/15/16 05:28 Albumin/Globulin Ratio 1.0 (1.0-1.8) 09/15/16 05:28 Vitamin B12 368 pg/mL (211-946) 09/14/16 09:00 Folic Acid >20.0 ng/mL (>3.0) 09/14/16 09:00 TSH 1.54 uIU/ml (0.34-5.60) 09/13/16 05:34 Urine Source CATH 09/12/16 17:05 Urine Color YELLOW 09/12/16 17:05 Urine Clarity CLOUDY (CLEAR) H 09/12/16 17:05 Urine pH 8.5 09/12/16 17:05 Ur Specific [place] 1.015 (1.005-1.030) 09/12/16 17:05 Urine Protein 100 mg/dL (NEGATIVE) H 09/12/16 17:05 Urine Glucose (UA) NEGATIVE mg/dL (NEGATIVE) 09/12/16 17:05 Urine Ketones NEGATIVE mg/dL (NEGATIVE) 09/12/16 17:05 Urine Blood SMALL (NEGATIVE) H 09/12/16 17:05 Urine Nitrate POSITIVE (NEGATIVE) H 09/12/16 17:05 Urine Bilirubin NEGATIVE (NEGATIVE) 09/12/16 17:05 Urine Urobilinogen 0.2 E.U./dL (0.2 - 1.0) 09/12/16 17:05 Ur Leukocyte Esterase SMALL (NEGATIVE) H 09/12/16 17:05 Urine RBC 5-10 /hpf (0-5) H 09/12/16 17:05 Urine WBC 6-10 /hpf (0-5) H 09/12/16 17:05 Ur Epithelial Cells MANY /lpf (FEW) 09/12/16 17:05 Triple Phos Crystals MANY /hpf (FEW) 09/12/16 17:05 Urine Bacteria MANY /hpf (NONE SEEN) 09/12/16 17:05 Vancomycin Trough 11.2 ug/mL (10-20) 09/16/16 09:15 - Physical Exam Vitals and I&O: Vital Signs Temp 98.1 F 09/16/16 07:45 Pulse 90 09/16/16 09:15 Resp 22 09/16/16 11:44 BP 110/55 09/16/16 09:15 Pulse Ox 100 09/16/16 09:15 Intake & Output 09/15/16 09/16/16 09/16/16 18:59 06:59 18:59 Intake Total 1150 1960 Balance 1150 1960 Intake: Intake, IV Amount 350 1000 Dextrose 5% 1,000 ml @ 80 1000 mls/hr IV .[id number] DC Rx#:[id number] Meropenem 500 mg In 100 Sodium Chloride 0.9% 100 ml @ 100 mls/hr IV Q12HR DC Rx#:[id number] Vancomycin HCl 1 gm In 250 Sodium Chloride 0.9% 250 ml @ 165 mls/hr IV Q24H [facility] Rx#:[id number] Tube Feeding 800 840 Other 120 Other: # Voids 3 3 # Bowel Movements 2 Stool Characteristics Soft Soft Soft Liquid Brown Brown Active Medications: Current Medications Acetaminophen (Tylenol 650mg/20.3ml Suspension) 650 mg GT Q6HR PRN PRN Reason: Pain or Fever >101 Stop: 11/11/16 20:15 Last Admin: 09/15/16 20:51 Dose: 650 mg Acetaminophen/Hydrocodone Bitart ([place] 5mg/325mg) 1 tab GT Q4H PRN PRN Reason: Pain (Severe) Stop: 11/11/16 20:19 Last Admin: 09/15/16 18:30 Dose: 1 tab Albuterol/Ipratropium (Duoneb Neb) 3 ml HHN Q6HRT [facility] Stop: 11/12/16 12:59 Last Admin: 09/16/16 08:06 Dose: 3 ml Ascorbic Acid (Vitamin C) 500 mg GT DAILY [facility] Stop: 11/12/16 08:59 Last Admin: 09/16/16 08:46 Dose: 500 mg Bisacodyl (Dulcolax 10 Mg Supp) 10 mg RC DAILY PRN PRN Reason: IF MOM INEFFECTIVE Stop: 11/11/16 20:15 Guaifenesin (Robitussin) 200 mg GT Q4HR PRN PRN Reason: Cough or Congestion Stop: 11/11/16 20:19 Heparin Sodium (Porcine) (Heparin) 5,000 units SUBQ Q12HR [facility] Stop: 11/11/16 20:59 Last Admin: 09/16/16 08:46 Dose: 5,000 units Vancomycin HCl 1 gm/ Sodium (Chloride) 250 mls @ 165 mls/hr IV Q24H [facility] Stop: 11/12/16 09:59 Last Infusion: 09/15/16 16:25 Dose: Infused Meropenem 500 mg/ Sodium (Chloride) 100 mls @ 100 mls/hr IV Q12HR [facility] Stop: 11/12/16 13:59 Last Infusion: 09/15/16 16:19 Dose: Infused Potassium Chloride 40 meq/Lidocaine HCl 25 mg/ Sodium Chloride 272.5 mls @ 68 mls/hr IV 1015 [facility] Stop: 09/16/16 18:00 Last Admin: 09/16/16 10:21 Dose: 68 mls/hr Potassium Chloride/Dextrose (D5w W/20 Meq Kcl) 1,000 mls @ 75 mls/hr IV .[id number] [facility] Stop: 11/15/16 13:29 Lactobacillus Rhamnosus (Culturelle) 1 each GT Q12H [facility] Stop: 11/12/16 08:59 Last Admin: 09/16/16 08:47 Dose: 1 each Loperamide HCl (Imodium 1mg/5ml Suspension) 2 mg GT Q4H PRN PRN Reason: Diarrhea Lorazepam (Ativan) 0.5 mg GT Q6H PRN; Protocol PRN Reason: Anxiety Stop: 11/11/16 20:15 Last Admin: 09/13/16 21:48 Dose: 0.5 mg Magnesium Hydroxide (Milk Of Magnesia) 30 ml GT HS PRN PRN Reason: Constipation Stop: 11/11/16 20:15 Miscellaneous (Vancomycin Iv Per Pharmacy) 1 ea MC PRN DC Stop: 11/11/16 20:29 Mupirocin (Bactroban Oint) 1 appl TP BID [facility] Stop: 09/19/16 16:59 Last Admin: 09/16/16 08:47 Dose: 1 appl Ondansetron HCl (Zofran) 4 mg IV Q8H PRN PRN Reason: Nausea / Vomiting Stop: 11/11/16 20:19 Pantoprazole Sodium (Protonix) 40 mg GT Q24H [facility] Stop: 11/13/16 08:59 Last Admin: 09/16/16 08:46 Dose: 40 mg Sodium Phosphate (Fleet Enema) 135 ml RC Q48H PRN PRN Reason: IF DULCOLAX INEFFECTIVE Stop: 11/11/16 20:15 General: demented HEENT: NC/AT, PERRLA Neck: Supple, No JVD Lungs: congested, rales, ronchi Cardiovascular: RRR, Normal S1 Abdomen: thin, +GT, positive bowel sound Extremities: excoriation, contracture, other (decub 3) Neurological: lethargic - Procedures Procedures: Procedures Procedure Code Date I[place] [address]75 04/15/16 IMMUNIZATION ADMIN 50199 04/15/16 INSERT PICC CATH 40810 04/15/16 INSERTION OF INFUSION DEVICE INTO R ATRIUM, PERC APPROACH [id number] 04/15/16 INTRODUCTION OF SERUM/TOX/VACCINE INTO MUSCLE, PERC APPROACH [id number] 04/15/16 Internal Medicine Assmt/Plan - Assessment Assessment: severe sepsis acute respiratory failure dementia acute renal failure electroytes abn decub ulcer - Plan Plan: cont on bipap pulm follow up renal follow up correct lytes cont on iv abx joao rn rejyothi fuction improving will replace lytes Nutritional Asmnt/Malnutr-PDOC - Dietary Evaluation Malnutrition Findings (Please click <Entered> for more info): Nutritional Asmnt/Malnutrition Start: 09/13/16 11: 06 Text: Status: Complete Freq: Document 09/13/16 11:06 GSUN (Rec: 09/13/16 11:16 GSUN [email or web address]) Nutritional Asmnt/Malnutrition Patient General Information Nutritional Screening Consult Diagnosis ER: Sepsis, acute UTI, acute dehydration, actue renal failure Pertinent Medical Hx/Surgical Hx ER: dementia, HTN, depression, schizophrenia Subjective Information 65 year old female from SNF. Pt admitted for acute severe abnormal labs. RD consult wound. Pt was soundly asleep during visit, did not wake to RD's call, palced on bipap after RD's visit. Observed tube feeding infusing as ordered. Unable to obtain CBW due to bedscale on special settings. Mild wastings to temporals. Spoke to RN, tolerating tube feeding, no diarrhea. RN also stated pt appeared to be in critical state. Current Diet Order/ Nutrition Support Diabetisource 60ml/hr x 24hrs, providing 1440kcal, 72g protein. Pertinent Medications Vitamin C, D5, Culturelle, MOM , Vancomycin, Zofran, Protonix , Fleet Enema Pertinent Labs 09/12: sodium 156H, BUN 112H, creatinine 1.3H, glucose 226H, A1c 6.6H 09/11: sodium 160H, BUN 101H, glucose 239H Nutritional Hx/Data Height 1.63 m Height (Calculated Centimeters) 162.6 Current Weight (lbs) 62.142 kg Weight (Calculated Kilograms) 62.1 Weight (Calculated Grams) 55628.2 [place] Body Weight 120 Weight Status Approriate GI Symptoms Food Allergies No Cultural/Ethnic/Denominational Belief [facility] order: glucerna 1.2 at 60ml/hrs x 20hrs, on at 2pm off at 10am, providing 1440kcal. Water flush 150ml every shift. 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 No wound care note yet. Estimated Nutritional Goals Calories/Kcals/Kg IBW 120lb/54.5kg Kcals Calculated 1635-1908kcal (30-35kcal/kg, sepsis) Protein Calculated 71-87g (1.3-1.6g/kg, sepsis, ? wound) Fluid: ml 1635-1908ml (1ml/kcal) Nutritional Problem 1. Problem Problem Increased nutrient needs related to Etiology hypermetabolic state aeb Signs/Symptoms: ER: sepsis Intervention/Recommendation Comments 1. When medically appropriate, recommend increasing Diabetisource to 70ml/hr x 20hrs, providing 1680kcal, 84g protein, 1145ml free water. Current order meeting 88% of lower end of estimated nutritional needs with consideration of diagnoses. Expected Outcomes/Goals Expected Outcomes/Goals 1. Pt to meet 100% estimated nutritional needs on tube feeding with tolerance.
--- NOTE | 2016-09-16 15:54 | General Progress Note ---
Subjective - Review of Systems Service Date: 09/16/16 Subjective: awake, comfortable, verbal Objective - Results Result Diagrams: 09/16/16 06:02 09/16/16 06:02 Recent Labs: Laboratory Last Values WBC 8.5 Th/cmm (4.8-10.8) 09/16/16 06:02 RBC 3.09 Mil/cmm (3.80-5.10) L 09/16/16 06:02 Hgb 9.7 gm/dL (11.7-15.5) L 09/16/16 06:02 Hct 27.8 % (35.0-45.0) L 09/16/16 06:02 MCV 89.9 fl (81-100) 09/16/16 06:02 MCH 31.4 pg (27.0-31.0) H 09/16/16 06:02 MCHC Differential 35.0 pg (28.0-36.0) 09/16/16 06:02 RDW 14.2 % (11.5-20.0) 09/16/16 06:02 Plt Count 156 Th/cmm (150-400) 09/16/16 06:02 MPV 10.9 fl 09/16/16 06:02 Neutrophils % 69.9 % (40.0-80.0) 09/16/16 06:02 Band Neutrophils % 3 % (0-10) 09/14/16 09:00 Lymphocytes % 21.4 % (20.0-50.0) 09/16/16 06:02 Monocytes % 5.3 % (2.0-10.0) 09/16/16 06:02 Eosinophils % 3.2 % (0.0-5.0) 09/16/16 06:02 Basophils % 0.2 % (0.0-2.0) 09/16/16 06:02 Neutrophils (Manual) 89 % (40-80) H 09/14/16 09:00 Lymphocytes 3 % (20-50) L 09/14/16 09:00 Monocytes 2 % (2-10) 09/14/16 09:00 Eosinophils 3 % (0-5) 09/14/16 09:00 Basophils 0 % (0-3) 09/12/16 17:20 Platelet Estimate ADEQUATE (NORMAL) 09/14/16 09:00 Platelet Morphology NORMAL (NORMAL) 09/13/16 05:34 RBC Morph Micro Appear NORMAL (NORMAL) 09/14/16 09:00 PT 10.3 SECONDS (9.5-11.5) 09/12/16 17:20 INR 0.99 (0.5-1.4) 09/12/16 17:20 PTT (Actin FS) 20.7 SECONDS (26.0-38.0) L 09/12/16 17:20 Specimen Source Arterial 09/14/16 09:12 Sample Site Left Radial 09/14/16 09:12 pH 7.47 (7.35-7.45) H 09/14/16 09:12 pCO2 38.0 mmHg (35.0-45.0) 09/14/16 09:12 pO2 159.0 mmHg (80.0-100.0) H 09/14/16 09:12 HCO3 28.0 mEq/L (20.0-26.0) H 09/14/16 09:12 Base Excess 3.9 mEq/L (-3.0-3.0) H 09/14/16 09:12 O2 Saturation 100.0 % (92.0-100.0) 09/14/16 09:12 Luis Miguel Test PASS 09/14/16 09:12 Vent Rate 12 09/14/16 09:12 Inspired O2 30 09/14/16 09:12 Critical Value PW 09/14/16 09:12 Sodium 146 mEq/L (136-145) H 09/16/16 06:02 Potassium 3.1 mEq/L (3.5-5.1) L 09/16/16 06:02 Chloride 114 mEq/L (98-107) H 09/16/16 06:02 Carbon Dioxide 26.1 mEq/L (21.0-31.0) 09/16/16 06:02 Anion Gap 9.0 (7.0-16.0) 09/16/16 06:02 BUN 37 mg/dL (7-25) H 09/16/16 06:02 Creatinine 0.5 mg/dL (0.6-1.2) L 09/16/16 06:02 Est GFR ( Amer) > 60.0 ml/min (>90) 09/16/16 06:02 Est GFR (Non-Af Amer) > 60.0 ml/min 09/16/16 06:02 BUN/Creatinine Ratio 74.0 09/16/16 06:02 Glucose 214 mg/dL (70-105) H 09/16/16 06:02 Hemoglobin A1c % 6.6 % (4.0-6.0) H 09/12/16 17:20 Whole Bld Lactic Acid 1.22 mmol/L (0.60-1.99) 09/12/16 19:20 Calcium 9.0 mg/dL (8.6-10.3) 09/16/16 06:02 Magnesium 2.3 mg/dL (1.9-2.7) 09/16/16 06:02 Total Bilirubin 0.3 mg/dL (0.3-1.0) 09/15/16 05:28 AST 12 U/L (13-39) L 09/15/16 05:28 ALT 17 U/L (7-52) 09/15/16 05:28 Alkaline Phosphatase 47 U/L (34-104) 09/15/16 05:28 Ammonia 29 umol/L (16-53) 09/15/16 05:28 Creatine Kinase 83 U/L (30-223) 09/12/16 17:20 B-Natriuretic Peptide 127.0 pg/mL (5.0-100.0) H 09/16/16 06:02 Total Protein 6.7 gm/dL (6.0-8.3) 09/15/16 05:28 Albumin 3.3 gm/dL (3.7-5.3) L 09/15/16 05:28 Globulin 3.4 gm/dL 09/15/16 05:28 Albumin/Globulin Ratio 1.0 (1.0-1.8) 09/15/16 05:28 Vitamin B12 368 pg/mL (211-946) 09/14/16 09:00 Folic Acid >20.0 ng/mL (>3.0) 09/14/16 09:00 TSH 1.54 uIU/ml (0.34-5.60) 09/13/16 05:34 Urine Source CATH 09/12/16 17:05 Urine Color YELLOW 09/12/16 17:05 Urine Clarity CLOUDY (CLEAR) H 09/12/16 17:05 Urine pH 8.5 09/12/16 17:05 Ur Specific [place] 1.015 (1.005-1.030) 09/12/16 17:05 Urine Protein 100 mg/dL (NEGATIVE) H 09/12/16 17:05 Urine Glucose (UA) NEGATIVE mg/dL (NEGATIVE) 09/12/16 17:05 Urine Ketones NEGATIVE mg/dL (NEGATIVE) 09/12/16 17:05 Urine Blood SMALL (NEGATIVE) H 09/12/16 17:05 Urine Nitrate POSITIVE (NEGATIVE) H 09/12/16 17:05 Urine Bilirubin NEGATIVE (NEGATIVE) 09/12/16 17:05 Urine Urobilinogen 0.2 E.U./dL (0.2 - 1.0) 09/12/16 17:05 Ur Leukocyte Esterase SMALL (NEGATIVE) H 09/12/16 17:05 Urine RBC 5-10 /hpf (0-5) H 09/12/16 17:05 Urine WBC 6-10 /hpf (0-5) H 09/12/16 17:05 Ur Epithelial Cells MANY /lpf (FEW) 09/12/16 17:05 Triple Phos Crystals MANY /hpf (FEW) 09/12/16 17:05 Urine Bacteria MANY /hpf (NONE SEEN) 09/12/16 17:05 Vancomycin Trough 11.2 ug/mL (10-20) 09/16/16 09:15 - Physical Exam Vitals and I&O: Vital Signs Temp 98.1 F 09/16/16 07:45 Pulse 95 09/16/16 13:57 Resp 18 09/16/16 15:28 BP 110/55 09/16/16 09:15 Pulse Ox 96 09/16/16 13:57 Intake & Output 09/15/16 09/16/16 09/16/16 18:59 06:59 18:59 Intake Total 1150 1960 Balance 1150 1960 Intake: Intake, IV Amount 350 1000 Dextrose 5% 1,000 ml @ 80 1000 mls/hr IV .[id number] DC Rx#:[id number] Meropenem 500 mg In 100 Sodium Chloride 0.9% 100 ml @ 100 mls/hr IV Q12HR DC Rx#:[id number] Vancomycin HCl 1 gm In 250 Sodium Chloride 0.9% 250 ml @ 165 mls/hr IV Q24H CD Rx#:[id number] Tube Feeding 800 840 Other 120 Other: # Voids 3 3 # Bowel Movements 2 Stool Characteristics Soft Soft Soft Liquid Brown Brown Active Medications: Current Medications Acetaminophen (Tylenol 650mg/20.3ml Suspension) 650 mg GT Q6HR PRN PRN Reason: Pain or Fever >101 Stop: 11/11/16 20:15 Last Admin: 09/15/16 20:51 Dose: 650 mg Acetaminophen/Hydrocodone Bitart ([place] 5mg/325mg) 1 tab GT Q4H PRN PRN Reason: Pain (Severe) Stop: 11/11/16 20:19 Last Admin: 09/15/16 18:30 Dose: 1 tab Albuterol/Ipratropium (Duoneb Neb) 3 ml HHN Q6HRT [facility] Stop: 11/12/16 12:59 Last Admin: 09/16/16 13:57 Dose: 3 ml Ascorbic Acid (Vitamin C) 500 mg GT DAILY [facility] Stop: 11/12/16 08:59 Last Admin: 09/16/16 08:46 Dose: 500 mg Bisacodyl (Dulcolax 10 Mg Supp) 10 mg RC DAILY PRN PRN Reason: IF MOM INEFFECTIVE Stop: 11/11/16 20:15 Guaifenesin (Robitussin) 200 mg GT Q4HR PRN PRN Reason: Cough or Congestion Stop: 11/11/16 20:19 Heparin Sodium (Porcine) (Heparin) 5,000 units SUBQ Q12HR [facility] Stop: 11/11/16 20:59 Last Admin: 09/16/16 08:46 Dose: 5,000 units Vancomycin HCl 1 gm/ Sodium (Chloride) 250 mls @ 165 mls/hr IV Q24H [facility] Stop: 11/12/16 09:59 Last Admin: 09/16/16 14:43 Dose: 165 mls/hr Meropenem 500 mg/ Sodium (Chloride) 100 mls @ 100 mls/hr IV Q12HR [facility] Stop: 11/12/16 13:59 Last Infusion: 09/15/16 16:19 Dose: Infused Potassium Chloride 40 meq/Lidocaine HCl 25 mg/ Sodium Chloride 272.5 mls @ 68 mls/hr IV 1015 [facility] Stop: 09/16/16 18:00 Last Admin: 09/16/16 10:21 Dose: 68 mls/hr Potassium Chloride/Dextrose (D5w W/20 Meq Kcl) 1,000 mls @ 75 mls/hr IV .[id number] DC Stop: 11/15/16 13:29 Lactobacillus Rhamnosus (Culturelle) 1 each GT Q12H DC Stop: 11/12/16 08:59 Last Admin: 09/16/16 08:47 Dose: 1 each Loperamide HCl (Imodium 1mg/5ml Suspension) 2 mg GT Q4H PRN PRN Reason: Diarrhea Lorazepam (Ativan) 0.5 mg GT Q6H PRN; Protocol PRN Reason: Anxiety Stop: 11/11/16 20:15 Last Admin: 09/13/16 21:48 Dose: 0.5 mg Magnesium Hydroxide (Milk Of Magnesia) 30 ml GT HS PRN PRN Reason: Constipation Stop: 11/11/16 20:15 Miscellaneous (Vancomycin Iv Per Pharmacy) 1 ea MC PRN DC Stop: 11/11/16 20:29 Mupirocin (Bactroban Oint) 1 appl TP BID DC Stop: 09/19/16 16:59 Last Admin: 09/16/16 08:47 Dose: 1 appl Ondansetron HCl (Zofran) 4 mg IV Q8H PRN PRN Reason: Nausea / Vomiting Stop: 11/11/16 20:19 Pantoprazole Sodium (Protonix) 40 mg GT Q24H DC Stop: 11/13/16 08:59 Last Admin: 09/16/16 08:46 Dose: 40 mg Sodium Phosphate (Fleet Enema) 135 ml RC Q48H PRN PRN Reason: IF DULCOLAX INEFFECTIVE Stop: 11/11/16 20:15 General: Alert, No acute distress HEENT: Atraumatic, Mucous membr. moist/pink Neck: Supple, +2 carotid pulse wo bruit Cardiovascular: Regular rate, Normal S1, Normal S2 Lungs: Clear to auscultation Abdomen: Bowel sounds, Soft Extremities: no Edema Neurological: Sensation intact Skin: no Rash Psych/Mental Status: Mood NL - Procedures Procedures: Procedures Procedure Code Date [place] [address] 04/15/16 IMMUNIZATION ADMIN 30029 04/15/16 INSERT PICC CATH 92110 04/15/16 INSERTION OF INFUSION DEVICE INTO R ATRIUM, PERC APPROACH [id number] 04/15/16 INTRODUCTION OF SERUM/TOX/VACCINE INTO MUSCLE, PERC APPROACH [id number] 04/15/16 Assessment/Plan - Problem List Patient Problems: All Active Problems FEVER WITH ELEVATED WBC, BUN (Acute) Hyperosmolality and hypernatremia (Acute) E87.0 azotemia better (Acute) Weakness (Acute) - Assessment Assessment: PER on CKD HYpernatremia Acute resp failure Alz Dementia Decub Ulcer Anemia of CD - Plan Plan: Lab - Result Diagrams 09/16/16 06:02 09/16/16 06:02 Current Medications Acetaminophen (Tylenol 650mg/20.3ml Suspension) 650 mg GT Q6HR PRN PRN Reason: Pain or Fever >101 Stop: 11/11/16 20:15 Last Admin: 09/15/16 20:51 Dose: 650 mg Acetaminophen/Hydrocodone Bitart ([place] 5mg/325mg) 1 tab GT Q4H PRN PRN Reason: Pain (Severe) Stop: 11/11/16 20:19 Last Admin: 09/15/16 18:30 Dose: 1 tab Albuterol/Ipratropium (Duoneb Neb) 3 ml HHN Q6HRT DC Stop: 11/12/16 12:59 Last Admin: 09/16/16 13:57 Dose: 3 ml Ascorbic Acid (Vitamin C) 500 mg GT DAILY DC Stop: 11/12/16 08:59 Last Admin: 09/16/16 08:46 Dose: 500 mg Bisacodyl (Dulcolax 10 Mg Supp) 10 mg RC DAILY PRN PRN Reason: IF MOM INEFFECTIVE Stop: 11/11/16 20:15 Guaifenesin (Robitussin) 200 mg GT Q4HR PRN PRN Reason: Cough or Congestion Stop: 11/11/16 20:19 Heparin Sodium (Porcine) (Heparin) 5,000 units SUBQ Q12HR DC Stop: 11/11/16 20:59 Last Admin: 09/16/16 08:46 Dose: 5,000 units Vancomycin HCl 1 gm/ Sodium (Chloride) 250 mls @ 165 mls/hr IV Q24H DC Stop: 11/12/16 09:59 Last Admin: 09/16/16 14:43 Dose: 165 mls/hr Meropenem 500 mg/ Sodium (Chloride) 100 mls @ 100 mls/hr IV Q12HR DC Stop: 11/12/16 13:59 Last Infusion: 09/15/16 16:19 Dose: Infused Potassium Chloride 40 meq/Lidocaine HCl 25 mg/ Sodium Chloride 272.5 mls @ 68 mls/hr IV 1015 [facility] Stop: 09/16/16 18:00 Last Admin: 09/16/16 10:21 Dose: 68 mls/hr Potassium Chloride/Dextrose (D5w W/20 Meq Kcl) 1,000 mls @ 75 mls/hr IV .[id number] [facility] Stop: 11/15/16 13:29 Lactobacillus Rhamnosus (Culturelle) 1 each GT Q12H [facility] Stop: 11/12/16 08:59 Last Admin: 09/16/16 08:47 Dose: 1 each Loperamide HCl (Imodium 1mg/5ml Suspension) 2 mg GT Q4H PRN PRN Reason: Diarrhea Lorazepam (Ativan) 0.5 mg GT Q6H PRN; Protocol PRN Reason: Anxiety Stop: 11/11/16 20:15 Last Admin: 09/13/16 21:48 Dose: 0.5 mg Magnesium Hydroxide (Milk Of Magnesia) 30 ml GT HS PRN PRN Reason: Constipation Stop: 11/11/16 20:15 Miscellaneous (Vancomycin Iv Per Pharmacy) 1 ea MC PRN [facility] Stop: 11/11/16 20:29 Mupirocin (Bactroban Oint) 1 appl TP BID [facility] Stop: 09/19/16 16:59 Last Admin: 09/16/16 08:47 Dose: 1 appl Ondansetron HCl (Zofran) 4 mg IV Q8H PRN PRN Reason: Nausea / Vomiting Stop: 11/11/16 20:19 Pantoprazole Sodium (Protonix) 40 mg GT Q24H [facility] Stop: 11/13/16 08:59 Last Admin: 09/16/16 08:46 Dose: 40 mg Sodium Phosphate (Fleet Enema) 135 ml RC Q48H PRN PRN Reason: IF DULCOLAX INEFFECTIVE Stop: 11/11/16 20:15 cr. down to 0.5 Na better @ 146 CXR revealed NAD Agree w/ K replacement Ferraro cath inserted & donna 800 ml urine obtained possibe obstruction vs neurogenic bladder F/U electrolytes, cbc Nutritional Asmnt/Malnutr-PDOC - Dietary Evaluation Malnutrition Findings (Please click <Entered> for more info): Nutritional Asmnt/Malnutrition Start: 09/13/16 11: 06 Text: Status: Complete Freq: Document 09/13/16 11:06 CHUY (Rec: 09/13/16 11:16 [id number] [id number]) Nutritional Asmnt/Malnutrition Patient General Information Nutritional Screening Consult Diagnosis ER: Sepsis, acute UTI, acute dehydration, actue renal failure Pertinent Medical Hx/Surgical Hx ER: dementia, HTN, depression, schizophrenia Subjective Information 65 year old female from SNF. Pt admitted for acute severe abnormal labs. RD consult wound. Pt was soundly asleep during visit, did not wake to RD's call, palced on bipap after RD's visit. Observed tube feeding infusing as ordered. Unable to obtain CBW due to bedscale on special settings. Mild wastings to temporals. Spoke to RN, tolerating tube feeding, no diarrhea. RN also stated pt appeared to be in critical state. Current Diet Order/ Nutrition Support Diabetisource 60ml/hr x 24hrs, providing 1440kcal, 72g protein. Pertinent Medications Vitamin C, D5, Culturelle, MOM , Vancomycin, Zofran, Protonix , Fleet Enema Pertinent Labs /4: sodium 156H, BUN 112H, creatinine 1.3H, glucose 226H, A1c 6.6H 4/3: sodium 160H, BUN 101H, glucose 239H Nutritional Hx/Data Height 1.63 m Height (Calculated Centimeters) 162.6 Current Weight (lbs) 62.142 kg Weight (Calculated Kilograms) 62.1 Weight (Calculated Grams) 22263.2 [place] Body Weight 120 Weight Status Approriate GI Symptoms Food Allergies No Cultural/Ethnic/Confucianism Belief [facility] order: glucerna 1.2 at 60ml/hrs x 20hrs, on at 2pm off at 10am, providing 1440kcal. Water flush 150ml every shift. Skin Integrity/Comment: Ruslan Tian. candy separator hard: coccyx pressure area. No wound care note yet. Estimated Nutritional Goals Calories/Kcals/Kg IBW 120lb/54.5kg Kcals Calculated 1635-1908kcal (30-35kcal/kg, sepsis) Protein Calculated 71-87g (1.3-1.6g/kg, sepsis, ? wound) Fluid: ml 1635-1908ml (1ml/kcal) Nutritional Problem 1. Problem Problem Increased nutrient needs related to Etiology hypermetabolic state aeb Signs/Symptoms: ER: sepsis Intervention/Recommendation Comments 1. When medically appropriate, recommend increasing Diabetisource to 70ml/hr x 20hrs, providing 1680kcal, 84g protein, 1145ml free water. Current order meeting 88% of lower end of estimated nutritional needs with consideration of diagnoses. Expected Outcomes/Goals Expected Outcomes/Goals 1. Pt to meet 100% estimated nutritional needs on tube feeding with tolerance.
[2016-09-16] MEDS: D5W w/20 mEq KCL 1,000 ML IV SCH (16:06)
[2016-09-16] MEDS: Meropenem 500 MG in Sodium Chloride 0.9% 100 ML IV SCH (20:23)
[2016-09-17] MEDS: Albuterol/Ipratropium Neb 3 ML AERS HHN SCH ×4 (00:43→18:57)
[2016-09-17 06:11] LABS: % BASOPHILS 0.1 % (0.0-2.0); % EOSINOPHILS 3.9 % (0.0-5.0); % LYMPHOCYTES 22.6 % (20.0-50.0); % MONOCYTES 4.5 % (2.0-10.0); % NEUTROPHILS 68.9 % (40.0-80.0); HEMATOCRIT 25.9 % (35.0-45.0); MEAN CELL VOLUME 88.2 fl (81-100); MEAN CORPUSCULAR HEMOGLOBIN 30.6 pg (27.0-31.0); MEAN CORPUSCULAR HGB CONC 34.8 pg (28.0-36.0); MEAN PLATELET VOLUME 9.8 fl; NEUTROPHILE ABSOLUTE 6.6 Th/cmm (1.8-8.0); PLATELET COUNT 154 Th/cmm (150-400); RED BLOOD COUNT 2.94 Mil/cmm (3.80-5.10); RED CELL DISTRIBUTION WIDTH 13.9 % (11.5-20.0); WHITE BLOOD COUNT 9.5 Th/cmm (4.8-10.8)
[2016-09-17 06:14] LABS: BUN - UREA NITROGEN 21 mg/dL (7-25); BUN/CREATININE RATIO 52.5; CALCIUM SERUM 8.7 mg/dL (8.6-10.3); CARBON DIOXIDE 28.5 mEq/L (21.0-31.0); CHLORIDE 114 mEq/L (98-107); CREATININE - SERUM 0.4 mg/dL (0.6-1.2); GLUCOSE 141 mg/dL (70-105); MAGNESIUM 2.1 mg/dL (1.9-2.7); POTASSIUM SERUM 3.5 mEq/L (3.5-5.1); SODIUM SERUM 146 mEq/L (136-145)
[2016-09-17] MEDS: Venelex 60gm Tube TP SCH (10:17)
[2016-09-17] MEDS: Pantoprazole 40 mg/Packet GT SCH (10:18)
[2016-09-17] MEDS: Ascorbic Acid 500 mg/5 mL UDC GT SCH (10:18)
[2016-09-17] MEDS: Lactobacillus Rhamnosus 10 Billion CFU Capsule GT SCH ×2 (10:19→20:54)
[2016-09-17] MEDS: Multivitamin w/ Minerals Tab GT SCH (10:19)
[2016-09-17] MEDS: D5W w/20 mEq KCL 1,000 ML IV SCH (10:34)
--- NOTE | 2016-09-17 10:37 | Diagnostic Imaging Report ---
Portable chest x-ray History: Shortness of breath Allowing for portable technique the heart size is normal. No focal pulmonary parenchymal processes. No hilar or mediastinal abnormalities. Impression: No acute abnormalities.
--- NOTE | 2016-09-17 13:40 | General Progress Note ---
Subjective - Review of Systems Service Date: 09/17/16 Subjective: awake, comfortable, verbal Objective - Results Result Diagrams: 09/17/16 05:13 09/17/16 05:13 Recent Labs: Laboratory Last Values WBC 9.5 Th/cmm (4.8-10.8) 09/17/16 05:13 RBC 2.94 Mil/cmm (3.80-5.10) L 09/17/16 05:13 Hgb 9.0 gm/dL (11.7-15.5) L 09/17/16 05:13 Hct 25.9 % (35.0-45.0) L 09/17/16 05:13 MCV 88.2 fl (81-100) 09/17/16 05:13 MCH 30.6 pg (27.0-31.0) 09/17/16 05:13 MCHC Differential 34.8 pg (28.0-36.0) 09/17/16 05:13 RDW 13.9 % (11.5-20.0) 09/17/16 05:13 Plt Count 154 Th/cmm (150-400) 09/17/16 05:13 MPV 9.8 fl 09/17/16 05:13 Neutrophils % 68.9 % (40.0-80.0) 09/17/16 05:13 Band Neutrophils % 3 % (0-10) 09/14/16 09:00 Lymphocytes % 22.6 % (20.0-50.0) 09/17/16 05:13 Monocytes % 4.5 % (2.0-10.0) 09/17/16 05:13 Eosinophils % 3.9 % (0.0-5.0) 09/17/16 05:13 Basophils % 0.1 % (0.0-2.0) 09/17/16 05:13 Neutrophils (Manual) 89 % (40-80) H 09/14/16 09:00 Lymphocytes 3 % (20-50) L 09/14/16 09:00 Monocytes 2 % (2-10) 09/14/16 09:00 Eosinophils 3 % (0-5) 09/14/16 09:00 Basophils 0 % (0-3) 09/12/16 17:20 Platelet Estimate ADEQUATE (NORMAL) 09/14/16 09:00 Platelet Morphology NORMAL (NORMAL) 09/13/16 05:34 RBC Morph Micro Appear NORMAL (NORMAL) 09/14/16 09:00 PT 10.3 SECONDS (9.5-11.5) 09/12/16 17:20 INR 0.99 (0.5-1.4) 09/12/16 17:20 PTT (Actin FS) 20.7 SECONDS (26.0-38.0) L 09/12/16 17:20 Specimen Source Arterial 09/14/16 09:12 Sample Site Left Radial 09/14/16 09:12 pH 7.47 (7.35-7.45) H 09/14/16 09:12 pCO2 38.0 mmHg (35.0-45.0) 09/14/16 09:12 pO2 159.0 mmHg (80.0-100.0) H 09/14/16 09:12 HCO3 28.0 mEq/L (20.0-26.0) H 09/14/16 09:12 Base Excess 3.9 mEq/L (-3.0-3.0) H 09/14/16 09:12 O2 Saturation 100.0 % (92.0-100.0) 09/14/16 09:12 Luis Miguel Test PASS 09/14/16 09:12 Vent Rate 12 09/14/16 09:12 Inspired O2 30 09/14/16 09:12 Critical Value PW 09/14/16 09:12 Sodium 146 mEq/L (136-145) H 09/17/16 05:13 Potassium 3.5 mEq/L (3.5-5.1) 09/17/16 05:13 Chloride 114 mEq/L (98-107) H 09/17/16 05:13 Carbon Dioxide 28.5 mEq/L (21.0-31.0) 09/17/16 05:13 Anion Gap 7.0 (7.0-16.0) 09/17/16 05:13 BUN 21 mg/dL (7-25) 09/17/16 05:13 Creatinine 0.4 mg/dL (0.6-1.2) L 09/17/16 05:13 Est GFR ( Amer) > 60.0 ml/min (>90) 09/17/16 05:13 Est GFR (Non-Af Amer) > 60.0 ml/min 09/17/16 05:13 BUN/Creatinine Ratio 52.5 09/17/16 05:13 Glucose 141 mg/dL (70-105) H 09/17/16 05:13 Hemoglobin A1c % 6.6 % (4.0-6.0) H 09/12/16 17:20 Whole Bld Lactic Acid 1.22 mmol/L (0.60-1.99) 09/12/16 19:20 Calcium 8.7 mg/dL (8.6-10.3) 09/17/16 05:13 Magnesium 2.1 mg/dL (1.9-2.7) 09/17/16 05:13 Total Bilirubin 0.3 mg/dL (0.3-1.0) 09/15/16 05:28 AST 12 U/L (13-39) L 09/15/16 05:28 ALT 17 U/L (7-52) 09/15/16 05:28 Alkaline Phosphatase 47 U/L (34-104) 09/15/16 05:28 Ammonia 30 umol/L (16-53) 09/17/16 05:13 Creatine Kinase 83 U/L (30-223) 09/12/16 17:20 B-Natriuretic Peptide 127.0 pg/mL (5.0-100.0) H 09/16/16 06:02 Total Protein 6.7 gm/dL (6.0-8.3) 09/15/16 05:28 Albumin 3.3 gm/dL (3.7-5.3) L 09/15/16 05:28 Globulin 3.4 gm/dL 09/15/16 05:28 Albumin/Globulin Ratio 1.0 (1.0-1.8) 09/15/16 05:28 Vitamin B12 368 pg/mL (211-946) 09/14/16 09:00 Folic Acid >20.0 ng/mL (>3.0) 09/14/16 09:00 TSH 1.54 uIU/ml (0.34-5.60) 09/13/16 05:34 Urine Source CATH 09/12/16 17:05 Urine Color YELLOW 09/12/16 17:05 Urine Clarity CLOUDY (CLEAR) H 09/12/16 17:05 Urine pH 8.5 09/12/16 17:05 Ur Specific [place] 1.015 (1.005-1.030) 09/12/16 17:05 Urine Protein 100 mg/dL (NEGATIVE) H 09/12/16 17:05 Urine Glucose (UA) NEGATIVE mg/dL (NEGATIVE) 09/12/16 17:05 Urine Ketones NEGATIVE mg/dL (NEGATIVE) 09/12/16 17:05 Urine Blood SMALL (NEGATIVE) H 09/12/16 17:05 Urine Nitrate POSITIVE (NEGATIVE) H 09/12/16 17:05 Urine Bilirubin NEGATIVE (NEGATIVE) 09/12/16 17:05 Urine Urobilinogen 0.2 E.U./dL (0.2 - 1.0) 09/12/16 17:05 Ur Leukocyte Esterase SMALL (NEGATIVE) H 09/12/16 17:05 Urine RBC 5-10 /hpf (0-5) H 09/12/16 17:05 Urine WBC 6-10 /hpf (0-5) H 09/12/16 17:05 Ur Epithelial Cells MANY /lpf (FEW) 09/12/16 17:05 Triple Phos Crystals MANY /hpf (FEW) 09/12/16 17:05 Urine Bacteria MANY /hpf (NONE SEEN) 09/12/16 17:05 Vancomycin Trough 11.2 ug/mL (10-20) 09/16/16 09:15 - Physical Exam Vitals and I&O: Vital Signs Temp 98.3 F 09/17/16 08:00 Pulse 93 09/17/16 08:05 Resp 16 09/17/16 12:00 BP 106/67 09/17/16 08:00 Pulse Ox 97 09/17/16 08:05 Intake & Output 09/16/16 09/17/16 09/17/16 18:59 06:59 18:59 Intake Total 897.5 1940 Output Total 1650 500 Balance -752.5 1440 Intake: Intake, IV Amount 522.5 1100 D5W w/20 mEq KCL 1,000 ml 1000 @ 75 mls/hr IV .[id number] [facility] Rx#:[id number] Meropenem 500 mg In 100 Sodium Chloride 0.9% 100 ml @ 100 mls/hr IV Q12HR [facility] Rx#:[id number] Potassium Chloride 40 meq 272.5 Lidocaine 1% 20mL Vial 25 mg In Sodium Chloride 0.9% 250 ml @ 68 mls/hr IV 1015 [facility] Rx#:[id number] Vancomycin HCl 1 gm In 250 Sodium Chloride 0.9% 250 ml @ 165 mls/hr IV Q24H [facility] Rx#:[id number] Oral 0 Tube Feeding 375 840 Output: Urine 1400 500 Other 250 Other: # Bowel Movements 2 2 Stool Characteristics Soft Liquid Liquid Brown Active Medications: Current Medications Acetaminophen (Tylenol 650mg/20.3ml Suspension) 650 mg GT Q6HR PRN PRN Reason: Pain or Fever >101 Stop: 11/11/16 20:15 Last Admin: 09/15/16 20:51 Dose: 650 mg Acetaminophen/Hydrocodone Bitart ([place] 5mg/325mg) 1 tab GT Q4H PRN PRN Reason: Pain (Severe) Stop: 11/11/16 20:19 Last Admin: 09/15/16 18:30 Dose: 1 tab Albuterol/Ipratropium (Duoneb Neb) 3 ml HHN Q6HRT [facility] Stop: 11/12/16 12:59 Last Admin: 09/17/16 08:02 Dose: 3 ml Ascorbic Acid (Vitamin C) 500 mg GT DAILY [facility] Stop: 11/12/16 08:59 Last Admin: 09/17/16 10:18 Dose: 500 mg Bisacodyl (Dulcolax 10 Mg Supp) 10 mg RC DAILY PRN PRN Reason: IF MOM INEFFECTIVE Stop: 11/11/16 20:15 Guaifenesin (Robitussin) 200 mg GT Q4HR PRN PRN Reason: Cough or Congestion Stop: 11/11/16 20:19 Heparin Sodium (Porcine) (Heparin) 5,000 units SUBQ Q12HR [facility] Stop: 11/11/16 20:59 Last Admin: 09/17/16 10:19 Dose: 5,000 units Vancomycin HCl 1 gm/ Sodium (Chloride) 250 mls @ 165 mls/hr IV Q24H [facility] Stop: 11/12/16 09:59 Last Admin: 09/17/16 10:20 Dose: 165 mls/hr Meropenem 500 mg/ Sodium (Chloride) 100 mls @ 100 mls/hr IV Q12HR [facility] Stop: 11/12/16 13:59 Last Infusion: 09/16/16 21:23 Dose: Infused Potassium Chloride/Dextrose (D5w W/20 Meq Kcl) 1,000 mls @ 75 mls/hr IV .[id number] [facility] Stop: 11/15/16 13:29 Last Admin: 09/17/16 10:34 Dose: 75 mls/hr Lactobacillus Rhamnosus (Culturelle) 1 each GT Q12H [facility] Stop: 11/12/16 08:59 Last Admin: 09/17/16 10:19 Dose: 1 each Loperamide HCl (Imodium 1mg/5ml Suspension) 2 mg GT Q4H PRN PRN Reason: Diarrhea Lorazepam (Ativan) 0.5 mg GT Q6H PRN; Protocol PRN Reason: Anxiety Stop: 11/11/16 20:15 Last Admin: 09/13/16 21:48 Dose: 0.5 mg Magnesium Hydroxide (Milk Of Magnesia) 30 ml GT HS PRN PRN Reason: Constipation Stop: 11/11/16 20:15 Miscellaneous (Vancomycin Iv Per Pharmacy) 1 ea MC PRN [facility] Stop: 11/11/16 20:29 Mupirocin (Bactroban Oint) 1 appl TP BID [facility] Stop: 09/19/16 16:59 Last Admin: 09/17/16 10:28 Dose: 1 appl Ondansetron HCl (Zofran) 4 mg IV Q8H PRN PRN Reason: Nausea / Vomiting Stop: 11/11/16 20:19 Pantoprazole Sodium (Protonix) 40 mg GT Q24H [facility] Stop: 11/13/16 08:59 Last Admin: 09/17/16 10:18 Dose: 40 mg Sodium Phosphate (Fleet Enema) 135 ml RC Q48H PRN PRN Reason: IF DULCOLAX INEFFECTIVE Stop: 11/11/16 20:15 General: Alert, No acute distress HEENT: Atraumatic, Mucous membr. moist/pink Neck: Supple, +2 carotid pulse wo bruit Cardiovascular: Regular rate, Normal S1, Normal S2 Lungs: Normal air movement Abdomen: Bowel sounds, Soft Extremities: no Edema Neurological: Sensation intact Skin: no Rash Psych/Mental Status: Other (depressed) - Procedures Procedures: Procedures Procedure Code Date [place] 7[address]82 04/15/16 IMMUNIZATION ADMIN 21188 04/15/16 INSERT PICC CATH 59216 04/15/16 INSERTION OF INFUSION DEVICE INTO R ATRIUM, PERC APPROACH 73Y037M 04/15/16 INTRODUCTION OF SERUM/TOX/VACCINE INTO MUSCLE, PERC APPROACH 6R0129X 04/15/16 Assessment/Plan - Problem List Patient Problems: All Active Problems FEVER WITH ELEVATED WBC, BUN (Acute) Hyperosmolality and hypernatremia (Acute) E87.0 azotemia better (Acute) Weakness (Acute) - Assessment Assessment: PER on CKD HYpernatremia Acute resp failure Alz Dementia Decub Ulcer Anemia of CD - Plan Plan: Lab - Result Diagrams 09/16/16 06:02 09/16/16 06:02 Current Medications Acetaminophen (Tylenol 650mg/20.3ml Suspension) 650 mg GT Q6HR PRN PRN Reason: Pain or Fever >101 Stop: 11/11/16 20:15 Last Admin: 09/15/16 20:51 Dose: 650 mg Acetaminophen/Hydrocodone Bitart ([place] 5mg/325mg) 1 tab GT Q4H PRN PRN Reason: Pain (Severe) Stop: 11/11/16 20:19 Last Admin: 09/15/16 18:30 Dose: 1 tab Albuterol/Ipratropium (Duoneb Neb) 3 ml HHN Q6HRT [facility] Stop: 11/12/16 12:59 Last Admin: 09/16/16 13:57 Dose: 3 ml Ascorbic Acid (Vitamin C) 500 mg GT DAILY [facility] Stop: 11/12/16 08:59 Last Admin: 09/16/16 08:46 Dose: 500 mg Bisacodyl (Dulcolax 10 Mg Supp) 10 mg RC DAILY PRN PRN Reason: IF MOM INEFFECTIVE Stop: 11/11/16 20:15 Guaifenesin (Robitussin) 200 mg GT Q4HR PRN PRN Reason: Cough or Congestion Stop: 11/11/16 20:19 Heparin Sodium (Porcine) (Heparin) 5,000 units SUBQ Q12HR [facility] Stop: 11/11/16 20:59 Last Admin: 09/16/16 08:46 Dose: 5,000 units Vancomycin HCl 1 gm/ Sodium (Chloride) 250 mls @ 165 mls/hr IV Q24H [facility] Stop: 11/12/16 09:59 Last Admin: 09/16/16 14:43 Dose: 165 mls/hr Meropenem 500 mg/ Sodium (Chloride) 100 mls @ 100 mls/hr IV Q12HR [facility] Stop: 11/12/16 13:59 Last Infusion: 09/15/16 16:19 Dose: Infused Potassium Chloride 40 meq/Lidocaine HCl 25 mg/ Sodium Chloride 272.5 mls @ 68 mls/hr IV 1015 [facility] Stop: 09/16/16 18:00 Last Admin: 09/16/16 10:21 Dose: 68 mls/hr Potassium Chloride/Dextrose (D5w W/20 Meq Kcl) 1,000 mls @ 75 mls/hr IV .[id number] [facility] Stop: 11/15/16 13:29 Lactobacillus Rhamnosus (Culturelle) 1 each GT Q12H [facility] Stop: 11/12/16 08:59 Last Admin: 09/16/16 08:47 Dose: 1 each Loperamide HCl (Imodium 1mg/5ml Suspension) 2 mg GT Q4H PRN PRN Reason: Diarrhea Lorazepam (Ativan) 0.5 mg GT Q6H PRN; Protocol PRN Reason: Anxiety Stop: 11/11/16 20:15 Last Admin: 09/13/16 21:48 Dose: 0.5 mg Magnesium Hydroxide (Milk Of Magnesia) 30 ml GT HS PRN PRN Reason: Constipation Stop: 11/11/16 20:15 Miscellaneous (Vancomycin Iv Per Pharmacy) 1 ea MC PRN [facility] Stop: 11/11/16 20:29 Mupirocin (Bactroban Oint) 1 appl TP BID [facility] Stop: 09/19/16 16:59 Last Admin: 09/16/16 08:47 Dose: 1 appl Ondansetron HCl (Zofran) 4 mg IV Q8H PRN PRN Reason: Nausea / Vomiting Stop: 11/11/16 20:19 Pantoprazole Sodium (Protonix) 40 mg GT Q24H [facility] Stop: 11/13/16 08:59 Last Admin: 09/16/16 08:46 Dose: 40 mg Sodium Phosphate (Fleet Enema) 135 ml RC Q48H PRN PRN Reason: IF DULCOLAX INEFFECTIVE Stop: 11/11/16 20:15 BUN/CR down to 21/0.4 Na better @ 146, K to 3.5 CXR revealed NAD Agree w/ K replacement Ferraro cath inserted & donna 800 ml urine obtained possibe obstruction vs neurogenic bladder F/U electrolytes, cbc continue D5W @ 75 ml/hr Nutritional Asmnt/Malnutr-PDOC - Dietary Evaluation Malnutrition Findings (Please click <Entered> for more info): Nutritional Asmnt/Malnutrition Start: 09/13/16 11: 06 Text: Status: Complete Freq: Document 09/13/16 11:06 CHUY (Rec: 09/13/16 11:16 [id number] [id number]) Nutritional Asmnt/Malnutrition Patient General Information Nutritional Screening Consult Diagnosis ER: Sepsis, acute UTI, acute dehydration, actue renal failure Pertinent Medical Hx/Surgical Hx ER: dementia, HTN, depression, schizophrenia Subjective Information 65 year old female from SNF. Pt admitted for acute severe abnormal labs. RD consult wound. Pt was soundly asleep during visit, did not wake to RD's call, palced on bipap after RD's visit. Observed tube feeding infusing as ordered. Unable to obtain CBW due to bedscale on special settings. Mild wastings to temporals. Spoke to RN, tolerating tube feeding, no diarrhea. RN also stated pt appeared to be in critical state. Current Diet Order/ Nutrition Support Diabetisource 60ml/hr x 24hrs, providing 1440kcal, 72g protein. Pertinent Medications Vitamin C, D5, Culturelle, MOM , Vancomycin, Zofran, Protonix , Fleet Enema Pertinent Labs 09/12: sodium 156H, BUN 112H, creatinine 1.3H, glucose 226H, A1c 6.6H 09/11: sodium 160H, BUN 101H, glucose 239H Nutritional Hx/Data Height 1.63 m Height (Calculated Centimeters) 162.6 Current Weight (lbs) 62.142 kg Weight (Calculated Kilograms) 62.1 Weight (Calculated Grams) 84103.2 [place] Body Weight 120 Weight Status Approriate GI Symptoms Food Allergies No Cultural/Ethnic/[employer] Belief SNF order: glucerna 1.2 at 60ml/hrs x 20hrs, on at 2pm off at 10am, providing 1440kcal. Water flush 150ml every shift. Skin Integrity/Comment: Ruslan Tian. bung sewer: coccyx pressure area. No wound care note yet. Estimated Nutritional Goals Calories/Kcals/Kg IBW 120lb/54.5kg Kcals Calculated 1635-1908kcal (30-35kcal/kg, sepsis) Protein Calculated 71-87g (1.3-1.6g/kg, sepsis, ? wound) Fluid: ml 1635-1908ml (1ml/kcal) Nutritional Problem 1. Problem Problem Increased nutrient needs related to Etiology hypermetabolic state aeb Signs/Symptoms: ER: sepsis Intervention/Recommendation Comments 1. When medically appropriate, recommend increasing Diabetisource to 70ml/hr x 20hrs, providing 1680kcal, 84g protein, 1145ml free water. Current order meeting 88% of lower end of estimated nutritional needs with consideration of diagnoses. Expected Outcomes/Goals Expected Outcomes/Goals 1. Pt to meet 100% estimated nutritional needs on tube feeding with tolerance.
--- NOTE | 2016-09-17 15:02 | Internal Medicine Prog Note ---
Internal Medicine Subjective - Subjective Patient seen and examined:: with staff, chart reviewed Patient is:: awake, verbal, in bed, denies CP, denies SOB Per staff patient is:: agitated, confused (gt) Internal Medicine Objective - Results Result Diagrams: 09/17/16 05:13 09/17/16 05:13 Recent Labs: Laboratory Last Values WBC 9.5 Th/cmm (4.8-10.8) 09/17/16 05:13 RBC 2.94 Mil/cmm (3.80-5.10) L 09/17/16 05:13 Hgb 9.0 gm/dL (11.7-15.5) L 09/17/16 05:13 Hct 25.9 % (35.0-45.0) L 09/17/16 05:13 MCV 88.2 fl (81-100) 09/17/16 05:13 MCH 30.6 pg (27.0-31.0) 09/17/16 05:13 MCHC Differential 34.8 pg (28.0-36.0) 09/17/16 05:13 RDW 13.9 % (11.5-20.0) 09/17/16 05:13 Plt Count 154 Th/cmm (150-400) 09/17/16 05:13 MPV 9.8 fl 09/17/16 05:13 Neutrophils % 68.9 % (40.0-80.0) 09/17/16 05:13 Band Neutrophils % 3 % (0-10) 09/14/16 09:00 Lymphocytes % 22.6 % (20.0-50.0) 09/17/16 05:13 Monocytes % 4.5 % (2.0-10.0) 09/17/16 05:13 Eosinophils % 3.9 % (0.0-5.0) 09/17/16 05:13 Basophils % 0.1 % (0.0-2.0) 09/17/16 05:13 Neutrophils (Manual) 89 % (40-80) H 09/14/16 09:00 Lymphocytes 3 % (20-50) L 09/14/16 09:00 Monocytes 2 % (2-10) 09/14/16 09:00 Eosinophils 3 % (0-5) 09/14/16 09:00 Basophils 0 % (0-3) 09/12/16 17:20 Platelet Estimate ADEQUATE (NORMAL) 09/14/16 09:00 Platelet Morphology NORMAL (NORMAL) 09/13/16 05:34 RBC Morph Micro Appear NORMAL (NORMAL) 09/14/16 09:00 PT 10.3 SECONDS (9.5-11.5) 09/12/16 17:20 INR 0.99 (0.5-1.4) 09/12/16 17:20 PTT (Actin FS) 20.7 SECONDS (26.0-38.0) L 09/12/16 17:20 Specimen Source Arterial 09/14/16 09:12 Sample Site Left Radial 09/14/16 09:12 pH 7.47 (7.35-7.45) H 09/14/16 09:12 pCO2 38.0 mmHg (35.0-45.0) 09/14/16 09:12 pO2 159.0 mmHg (80.0-100.0) H 09/14/16 09:12 HCO3 28.0 mEq/L (20.0-26.0) H 09/14/16 09:12 Base Excess 3.9 mEq/L (-3.0-3.0) H 09/14/16 09:12 O2 Saturation 100.0 % (92.0-100.0) 09/14/16 09:12 Luis Miguel Test PASS 09/14/16 09:12 Vent Rate 12 09/14/16 09:12 Inspired O2 30 09/14/16 09:12 Critical Value PW 09/14/16 09:12 Sodium 146 mEq/L (136-145) H 09/17/16 05:13 Potassium 3.5 mEq/L (3.5-5.1) 09/17/16 05:13 Chloride 114 mEq/L (98-107) H 09/17/16 05:13 Carbon Dioxide 28.5 mEq/L (21.0-31.0) 09/17/16 05:13 Anion Gap 7.0 (7.0-16.0) 09/17/16 05:13 BUN 21 mg/dL (7-25) 09/17/16 05:13 Creatinine 0.4 mg/dL (0.6-1.2) L 09/17/16 05:13 Est GFR ( Amer) > 60.0 ml/min (>90) 09/17/16 05:13 Est GFR (Non-Af Amer) > 60.0 ml/min 09/17/16 05:13 BUN/Creatinine Ratio 52.5 09/17/16 05:13 Glucose 141 mg/dL (70-105) H 09/17/16 05:13 Hemoglobin A1c % 6.6 % (4.0-6.0) H 09/12/16 17:20 Whole Bld Lactic Acid 1.22 mmol/L (0.60-1.99) 09/12/16 19:20 Calcium 8.7 mg/dL (8.6-10.3) 09/17/16 05:13 Magnesium 2.1 mg/dL (1.9-2.7) 09/17/16 05:13 Total Bilirubin 0.3 mg/dL (0.3-1.0) 09/15/16 05:28 AST 12 U/L (13-39) L 09/15/16 05:28 ALT 17 U/L (7-52) 09/15/16 05:28 Alkaline Phosphatase 47 U/L (34-104) 09/15/16 05:28 Ammonia 30 umol/L (16-53) 09/17/16 05:13 Creatine Kinase 83 U/L (30-223) 09/12/16 17:20 B-Natriuretic Peptide 127.0 pg/mL (5.0-100.0) H 09/16/16 06:02 Total Protein 6.7 gm/dL (6.0-8.3) 09/15/16 05:28 Albumin 3.3 gm/dL (3.7-5.3) L 09/15/16 05:28 Globulin 3.4 gm/dL 09/15/16 05:28 Albumin/Globulin Ratio 1.0 (1.0-1.8) 09/15/16 05:28 Vitamin B12 368 pg/mL (211-946) 09/14/16 09:00 Folic Acid >20.0 ng/mL (>3.0) 09/14/16 09:00 TSH 1.54 uIU/ml (0.34-5.60) 09/13/16 05:34 Urine Source CATH 09/12/16 17:05 Urine Color YELLOW 09/12/16 17:05 Urine Clarity CLOUDY (CLEAR) H 09/12/16 17:05 Urine pH 8.5 09/12/16 17:05 Ur Specific [place] 1.015 (1.005-1.030) 09/12/16 17:05 Urine Protein 100 mg/dL (NEGATIVE) H 09/12/16 17:05 Urine Glucose (UA) NEGATIVE mg/dL (NEGATIVE) 09/12/16 17:05 Urine Ketones NEGATIVE mg/dL (NEGATIVE) 09/12/16 17:05 Urine Blood SMALL (NEGATIVE) H 09/12/16 17:05 Urine Nitrate POSITIVE (NEGATIVE) H 09/12/16 17:05 Urine Bilirubin NEGATIVE (NEGATIVE) 09/12/16 17:05 Urine Urobilinogen 0.2 E.U./dL (0.2 - 1.0) 09/12/16 17:05 Ur Leukocyte Esterase SMALL (NEGATIVE) H 09/12/16 17:05 Urine RBC 5-10 /hpf (0-5) H 09/12/16 17:05 Urine WBC 6-10 /hpf (0-5) H 09/12/16 17:05 Ur Epithelial Cells MANY /lpf (FEW) 09/12/16 17:05 Triple Phos Crystals MANY /hpf (FEW) 09/12/16 17:05 Urine Bacteria MANY /hpf (NONE SEEN) 09/12/16 17:05 Vancomycin Trough 11.2 ug/mL (10-20) 09/16/16 09:15 - Physical Exam Vitals and I&O: Vital Signs Temp 98.3 F 09/17/16 08:00 Pulse 92 09/17/16 13:58 Resp 20 09/17/16 13:58 BP 106/67 09/17/16 08:00 Pulse Ox 97 09/17/16 13:58 Intake & Output 09/16/16 09/17/16 09/17/16 18:59 06:59 18:59 Intake Total 897.5 1940 Output Total 1650 500 Balance -752.5 1440 Intake: Intake, IV Amount 522.5 1100 D5W w/20 mEq KCL 1,000 ml 1000 @ 75 mls/hr IV .[id number] [facility] Rx#:[id number] Meropenem 500 mg In 100 Sodium Chloride 0.9% 100 ml @ 100 mls/hr IV Q12HR [facility] Rx#:[id number] Potassium Chloride 40 meq 272.5 Lidocaine 1% 20mL Vial 25 mg In Sodium Chloride 0.9% 250 ml @ 68 mls/hr IV 1015 [facility] Rx#:[id number] Vancomycin HCl 1 gm In 250 Sodium Chloride 0.9% 250 ml @ 165 mls/hr IV Q24H [facility] Rx#:[id number] Oral 0 Tube Feeding 375 840 Output: Urine 1400 500 Other 250 Other: # Bowel Movements 2 2 Stool Characteristics Soft Liquid Liquid Brown Active Medications: Current Medications Acetaminophen (Tylenol 650mg/20.3ml Suspension) 650 mg GT Q6HR PRN PRN Reason: Pain or Fever >101 Stop: 11/11/16 20:15 Last Admin: 09/15/16 20:51 Dose: 650 mg Acetaminophen/Hydrocodone Bitart ([place] 5mg/325mg) 1 tab GT Q4H PRN PRN Reason: Pain (Severe) Stop: 11/11/16 20:19 Last Admin: 09/15/16 18:30 Dose: 1 tab Albuterol/Ipratropium (Duoneb Neb) 3 ml HHN Q6HRT [facility] Stop: 11/12/16 12:59 Last Admin: 09/17/16 13:56 Dose: 3 ml Ascorbic Acid (Vitamin C) 500 mg GT DAILY [facility] Stop: 11/12/16 08:59 Last Admin: 09/17/16 10:18 Dose: 500 mg Bisacodyl (Dulcolax 10 Mg Supp) 10 mg RC DAILY PRN PRN Reason: IF MOM INEFFECTIVE Stop: 11/11/16 20:15 Guaifenesin (Robitussin) 200 mg GT Q4HR PRN PRN Reason: Cough or Congestion Stop: 11/11/16 20:19 Heparin Sodium (Porcine) (Heparin) 5,000 units SUBQ Q12HR [facility] Stop: 11/11/16 20:59 Last Admin: 09/17/16 10:19 Dose: 5,000 units Vancomycin HCl 1 gm/ Sodium (Chloride) 250 mls @ 165 mls/hr IV Q24H [facility] Stop: 11/12/16 09:59 Last Admin: 09/17/16 10:20 Dose: 165 mls/hr Meropenem 500 mg/ Sodium (Chloride) 100 mls @ 100 mls/hr IV Q12HR [facility] Stop: 11/12/16 13:59 Last Infusion: 09/16/16 21:23 Dose: Infused Potassium Chloride/Dextrose (D5w W/20 Meq Kcl) 1,000 mls @ 75 mls/hr IV .[id number] [facility] Stop: 11/15/16 13:29 Last Admin: 09/17/16 10:34 Dose: 75 mls/hr Lactobacillus Rhamnosus (Culturelle) 1 each GT Q12H [facility] Stop: 11/12/16 08:59 Last Admin: 09/17/16 10:19 Dose: 1 each Loperamide HCl (Imodium 1mg/5ml Suspension) 2 mg GT Q4H PRN PRN Reason: Diarrhea Lorazepam (Ativan) 0.5 mg GT Q6H PRN; Protocol PRN Reason: Anxiety Stop: 11/11/16 20:15 Last Admin: 09/13/16 21:48 Dose: 0.5 mg Magnesium Hydroxide (Milk Of Magnesia) 30 ml GT HS PRN PRN Reason: Constipation Stop: 11/11/16 20:15 Miscellaneous (Vancomycin Iv Per Pharmacy) 1 ea MC PRN DC Stop: 11/11/16 20:29 Mupirocin (Bactroban Oint) 1 appl TP BID [facility] Stop: 09/19/16 16:59 Last Admin: 09/17/16 10:28 Dose: 1 appl Ondansetron HCl (Zofran) 4 mg IV Q8H PRN PRN Reason: Nausea / Vomiting Stop: 11/11/16 20:19 Pantoprazole Sodium (Protonix) 40 mg GT Q24H [facility] Stop: 11/13/16 08:59 Last Admin: 09/17/16 10:18 Dose: 40 mg Sodium Phosphate (Fleet Enema) 135 ml RC Q48H PRN PRN Reason: IF DULCOLAX INEFFECTIVE Stop: 11/11/16 20:15 General: demented, other (cachectic) HEENT: NC/AT, PERRLA Neck: Supple, No JVD Lungs: congested, rales, ronchi Cardiovascular: RRR, Normal S1, Normal S2 Abdomen: soft non-tender, +GT, positive bowel sound Extremities: excoriation, contracture, ulcers stage 3 Neurological: disorganized, unable to follow command - Procedures Procedures: Procedures Procedure Code Date [place] [address]46 04/15/16 IMMUNIZATION ADMIN 49818 04/15/16 INSERT PICC CATH [id number] 04/15/16 INSERTION OF INFUSION DEVICE INTO R ATRIUM, PERC APPROACH 44T361E 04/15/16 INTRODUCTION OF SERUM/TOX/VACCINE INTO MUSCLE, PERC APPROACH [id number] 04/15/16 Internal Medicine Assmt/Plan - Assessment Assessment: severe sepsis acute respiratory failure dementia acute renal failure electroytes abn decub ulcer - Plan Plan: cont on bipap pulm follow up renal follow up correct lytes cont on iv abx dw rn rejose al fuction improving will replace lytes Nutritional Asmnt/Malnutr-PDOC - Dietary Evaluation Malnutrition Findings (Please click <Entered> for more info): Nutritional Asmnt/Malnutrition Start: 09/13/16 11: 06 Text: Status: Complete Freq: Document 09/13/16 11:06 GSUN (Rec: 09/13/16 11:16 GSUN [email or web address]) Nutritional Asmnt/Malnutrition Patient General Information Nutritional Screening Consult Diagnosis ER: Sepsis, acute UTI, acute dehydration, actue renal failure Pertinent Medical Hx/Surgical Hx ER: dementia, HTN, depression, schizophrenia Subjective Information 65 year old female from SNF. Pt admitted for acute severe abnormal labs. RD consult wound. Pt was soundly asleep during visit, did not wake to RD's call, palced on bipap after RD's visit. Observed tube feeding infusing as ordered. Unable to obtain CBW due to bedscale on special settings. Mild wastings to temporals. Spoke to RN, tolerating tube feeding, no diarrhea. RN also stated pt appeared to be in critical state. Current Diet Order/ Nutrition Support Diabetisource 60ml/hr x 24hrs, providing 1440kcal, 72g protein. Pertinent Medications Vitamin C, D5, Culturelle, MOM , Vancomycin, Zofran, Protonix , Fleet Enema Pertinent Labs 09/12: sodium 156H, BUN 112H, creatinine 1.3H, glucose 226H, A1c 6.6H /: sodium 160H, BUN 101H, glucose 239H Nutritional Hx/Data Height 1.63 m Height (Calculated Centimeters) 162.6 Current Weight (lbs) 62.142 kg Weight (Calculated Kilograms) 62.1 Weight (Calculated Grams) 25118.2 [place] Body Weight 120 Weight Status Approriate GI Symptoms Food Allergies No Cultural/Ethnic/[employer] Bel[employer] SNF order: glucerna 1.2 at 60ml/hrs x 20hrs, on at 2pm off at 10am, providing 1440kcal. Water flush 150ml every shift. 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 No wound care note yet. Estimated Nutritional Goals Calories/Kcals/Kg IBW 120lb/54.5kg Kcals Calculated 1635-1908kcal (30-35kcal/kg, sepsis) Protein Calculated 71-87g (1.3-1.6g/kg, sepsis, ? wound) Fluid: ml 1635-1908ml (1ml/kcal) Nutritional Problem 1. Problem Problem Increased nutrient needs related to Etiology hypermetabolic state aeb Signs/Symptoms: ER: sepsis Intervention/Recommendation Comments 1. When medically appropriate, recommend increasing Diabetisource to 70ml/hr x 20hrs, providing 1680kcal, 84g protein, 1145ml free water. Current order meeting 88% of lower end of estimated nutritional needs with consideration of diagnoses. Expected Outcomes/Goals Expected Outcomes/Goals 1. Pt to meet 100% estimated nutritional needs on tube feeding with tolerance.
[2016-09-17] MEDS: Meropenem 500 MG in Sodium Chloride 0.9% 100 ML IV SCH (20:54)
[2016-09-18] MEDS: Albuterol/Ipratropium Neb 3 ML AERS HHN SCH ×4 (00:48→18:50)
[2016-09-18] MEDS: D5W w/20 mEq KCL 1,000 ML IV SCH (05:25)
[2016-09-18 06:37] LABS: ANION GAP 7.2 (7.0-16.0); BUN - UREA NITROGEN 16 mg/dL (7-25); CALCIUM SERUM 8.8 mg/dL (8.6-10.3); CARBON DIOXIDE 24.4 mEq/L (21.0-31.0); CHLORIDE 111 mEq/L (98-107); CREATININE - SERUM 0.4 mg/dL (0.6-1.2); GLUCOSE 107 mg/dL (70-105); POTASSIUM SERUM 3.6 mEq/L (3.5-5.1); SODIUM SERUM 139 mEq/L (136-145)
[2016-09-18 06:53] LABS: % BASOPHILS 0.6 % (0.0-2.0); % EOSINOPHILS 6.9 % (0.0-5.0); % LYMPHOCYTES 24.6 % (20.0-50.0); % MONOCYTES 3.9 % (2.0-10.0); HEMOGLOBIN 9.4 gm/dL (11.7-15.5); MEAN CELL VOLUME 88.9 fl (81-100); MEAN CORPUSCULAR HGB CONC 34.9 pg (28.0-36.0); MEAN PLATELET VOLUME 10.6 fl; NEUTROPHILE ABSOLUTE 5.7 Th/cmm (1.8-8.0); PLATELET COUNT 168 Th/cmm (150-400); RED BLOOD COUNT 3.04 Mil/cmm (3.80-5.10); RED CELL DISTRIBUTION WIDTH 13.9 % (11.5-20.0); WHITE BLOOD COUNT 8.9 Th/cmm (4.8-10.8)
[2016-09-18] MEDS: Lactobacillus Rhamnosus 10 Billion CFU Capsule GT SCH ×2 (09:14→21:22)
[2016-09-18] MEDS: Multivitamin w/ Minerals Tab GT SCH (09:14)
[2016-09-18] MEDS: Ascorbic Acid 500 mg/5 mL UDC GT SCH (09:14)
[2016-09-18] MEDS: Pantoprazole 40 mg/Packet GT SCH (09:14)
[2016-09-18] MEDS: Venelex 60gm Tube TP SCH (09:16)
--- NOTE | 2016-09-18 15:57 | Internal Medicine Prog Note ---
Internal Medicine Subjective - Subjective Patient seen and examined:: with staff, chart reviewed Patient is:: awake, non-verbal, non-interactive Patient Complaints of:: congestion Per staff patient is:: no adverse event, noncompliant, confused Internal Medicine Objective - Results Result Diagrams: 09/18/16 05:20 09/18/16 05:20 Recent Labs: Laboratory Last Values WBC 8.9 Th/cmm (4.8-10.8) 09/18/16 05:20 RBC 3.04 Mil/cmm (3.80-5.10) L 09/18/16 05:20 Hgb 9.4 gm/dL (11.7-15.5) L 09/18/16 05:20 Hct 27.0 % (35.0-45.0) L 09/18/16 05:20 MCV 88.9 fl (81-100) 09/18/16 05:20 MCH 31.0 pg (27.0-31.0) 09/18/16 05:20 MCHC Differential 34.9 pg (28.0-36.0) 09/18/16 05:20 RDW 13.9 % (11.5-20.0) 09/18/16 05:20 Plt Count 168 Th/cmm (150-400) 09/18/16 05:20 MPV 10.6 fl 09/18/16 05:20 Neutrophils % 64.0 % (40.0-80.0) 09/18/16 05:20 Band Neutrophils % 3 % (0-10) 09/14/16 09:00 Lymphocytes % 24.6 % (20.0-50.0) 09/18/16 05:20 Monocytes % 3.9 % (2.0-10.0) 09/18/16 05:20 Eosinophils % 6.9 % (0.0-5.0) H 09/18/16 05:20 Basophils % 0.6 % (0.0-2.0) 09/18/16 05:20 Neutrophils (Manual) 89 % (40-80) H 09/14/16 09:00 Lymphocytes 3 % (20-50) L 09/14/16 09:00 Monocytes 2 % (2-10) 09/14/16 09:00 Eosinophils 3 % (0-5) 09/14/16 09:00 Basophils 0 % (0-3) 09/12/16 17:20 Platelet Estimate ADEQUATE (NORMAL) 09/14/16 09:00 Platelet Morphology NORMAL (NORMAL) 09/13/16 05:34 RBC Morph Micro Appear NORMAL (NORMAL) 09/14/16 09:00 PT 10.3 SECONDS (9.5-11.5) 09/12/16 17:20 INR 0.99 (0.5-1.4) 09/12/16 17:20 PTT (Actin FS) 20.7 SECONDS (26.0-38.0) L 09/12/16 17:20 Specimen Source Arterial 09/14/16 09:12 Sample Site Left Radial 09/14/16 09:12 pH 7.47 (7.35-7.45) H 09/14/16 09:12 pCO2 38.0 mmHg (35.0-45.0) 09/14/16 09:12 pO2 159.0 mmHg (80.0-100.0) H 09/14/16 09:12 HCO3 28.0 mEq/L (20.0-26.0) H 09/14/16 09:12 Base Excess 3.9 mEq/L (-3.0-3.0) H 09/14/16 09:12 O2 Saturation 100.0 % (92.0-100.0) 09/14/16 09:12 Luis Miguel Test PASS 09/14/16 09:12 Vent Rate 12 09/14/16 09:12 Inspired O2 30 09/14/16 09:12 Critical Value PW 09/14/16 09:12 Sodium 139 mEq/L (136-145) 09/18/16 05:20 Potassium 3.6 mEq/L (3.5-5.1) 09/18/16 05:20 Chloride 111 mEq/L (98-107) H 09/18/16 05:20 Carbon Dioxide 24.4 mEq/L (21.0-31.0) 09/18/16 05:20 Anion Gap 7.2 (7.0-16.0) 09/18/16 05:20 BUN 16 mg/dL (7-25) 09/18/16 05:20 Creatinine 0.4 mg/dL (0.6-1.2) L 09/18/16 05:20 Est GFR ( Amer) > 60.0 ml/min (>90) 09/18/16 05:20 Est GFR (Non-Af Amer) > 60.0 ml/min 09/18/16 05:20 BUN/Creatinine Ratio 40.0 09/18/16 05:20 Glucose 107 mg/dL (70-105) H 09/18/16 05:20 Hemoglobin A1c % 6.6 % (4.0-6.0) H 09/12/16 17:20 Whole Bld Lactic Acid 1.22 mmol/L (0.60-1.99) 09/12/16 19:20 Calcium 8.8 mg/dL (8.6-10.3) 09/18/16 05:20 Magnesium 2.1 mg/dL (1.9-2.7) 09/17/16 05:13 Total Bilirubin 0.3 mg/dL (0.3-1.0) 09/15/16 05:28 AST 12 U/L (13-39) L 09/15/16 05:28 ALT 17 U/L (7-52) 09/15/16 05:28 Alkaline Phosphatase 47 U/L (34-104) 09/15/16 05:28 Ammonia 30 umol/L (16-53) 09/17/16 05:13 Creatine Kinase 83 U/L (30-223) 09/12/16 17:20 B-Natriuretic Peptide 60.0 pg/mL (5.0-100.0) 09/18/16 05:20 Total Protein 6.7 gm/dL (6.0-8.3) 09/15/16 05:28 Albumin 3.3 gm/dL (3.7-5.3) L 09/15/16 05:28 Globulin 3.4 gm/dL 09/15/16 05:28 Albumin/Globulin Ratio 1.0 (1.0-1.8) 09/15/16 05:28 Vitamin B12 368 pg/mL (211-946) 09/14/16 09:00 Folic Acid >20.0 ng/mL (>3.0) 09/14/16 09:00 TSH 1.54 uIU/ml (0.34-5.60) 09/13/16 05:34 Urine Source CATH 09/12/16 17:05 Urine Color YELLOW 09/12/16 17:05 Urine Clarity CLOUDY (CLEAR) H 09/12/16 17:05 Urine pH 8.5 09/12/16 17:05 Ur Specific [place] 1.015 (1.005-1.030) 09/12/16 17:05 Urine Protein 100 mg/dL (NEGATIVE) H 09/12/16 17:05 Urine Glucose (UA) NEGATIVE mg/dL (NEGATIVE) 09/12/16 17:05 Urine Ketones NEGATIVE mg/dL (NEGATIVE) 09/12/16 17:05 Urine Blood SMALL (NEGATIVE) H 09/12/16 17:05 Urine Nitrate POSITIVE (NEGATIVE) H 09/12/16 17:05 Urine Bilirubin NEGATIVE (NEGATIVE) 09/12/16 17:05 Urine Urobilinogen 0.2 E.U./dL (0.2 - 1.0) 09/12/16 17:05 Ur Leukocyte Esterase SMALL (NEGATIVE) H 09/12/16 17:05 Urine RBC 5-10 /hpf (0-5) H 09/12/16 17:05 Urine WBC 6-10 /hpf (0-5) H 09/12/16 17:05 Ur Epithelial Cells MANY /lpf (FEW) 09/12/16 17:05 Triple Phos Crystals MANY /hpf (FEW) 09/12/16 17:05 Urine Bacteria MANY /hpf (NONE SEEN) 09/12/16 17:05 Ur Random Sodium 118 mmol/L 09/17/16 15:20 Vancomycin Trough 11.2 ug/mL (10-20) 09/16/16 09:15 - Physical Exam Vitals and I&O: Vital Signs Temp 97.5 F 09/18/16 12:00 Pulse 92 09/18/16 13:41 Resp 20 09/18/16 13:41 BP 102/65 09/18/16 12:00 Pulse Ox 97 09/18/16 13:41 Intake & Output 09/17/16 09/18/16 09/18/16 18:59 06:59 18:59 Intake Total 450 1550 Output Total 60 300 Balance 390 1250 Weight (lbs) 62.324 kg Intake: Intake, IV Amount 250 1000 D5W w/20 mEq KCL 1,000 ml 1000 @ 75 mls/hr IV .[id number] [facility] Rx#:[id number] Vancomycin HCl 1 gm In 250 Sodium Chloride 0.9% 250 ml @ 165 mls/hr IV Q24H [facility] Rx#:[id number] Oral 0 Tube Feeding 350 Other 200 200 Output: Urine 300 Other 60 Other: # Bowel Movements 2 Stool Characteristics Liquid Liquid Liquid Brown Brown Active Medications: Current Medications Acetaminophen (Tylenol 650mg/20.3ml Suspension) 650 mg GT Q6HR PRN PRN Reason: Pain or Fever >101 Stop: 11/11/16 20:15 Last Admin: 09/15/16 20:51 Dose: 650 mg Acetaminophen/Hydrocodone Bitart ([place] 5mg/325mg) 1 tab GT Q4H PRN PRN Reason: Pain (Severe) Stop: 11/11/16 20:19 Last Admin: 09/15/16 18:30 Dose: 1 tab Albuterol/Ipratropium (Duoneb Neb) 3 ml HHN Q6HRT [facility] Stop: 11/12/16 12:59 Last Admin: 09/18/16 13:38 Dose: 3 ml Ascorbic Acid (Vitamin C) 500 mg GT DAILY [facility] Stop: 11/12/16 08:59 Last Admin: 09/18/16 09:14 Dose: 500 mg Bisacodyl (Dulcolax 10 Mg Supp) 10 mg RC DAILY PRN PRN Reason: IF MOM INEFFECTIVE Stop: 11/11/16 20:15 Guaifenesin (Robitussin) 200 mg GT Q4HR PRN PRN Reason: Cough or Congestion Stop: 11/11/16 20:19 Heparin Sodium (Porcine) (Heparin) 5,000 units SUBQ Q12HR [facility] Stop: 11/11/16 20:59 Last Admin: 09/18/16 09:14 Dose: 5,000 units Vancomycin HCl 1 gm/ Sodium (Chloride) 250 mls @ 165 mls/hr IV Q24H [facility] Stop: 11/12/16 09:59 Last Admin: 09/18/16 10:35 Dose: 165 mls/hr Meropenem 500 mg/ Sodium (Chloride) 100 mls @ 100 mls/hr IV Q12HR [facility] Stop: 11/12/16 13:59 Last Admin: 09/17/16 20:54 Dose: 100 mls/hr Potassium Chloride/Dextrose (D5w W/20 Meq Kcl) 1,000 mls @ 75 mls/hr IV .[id number] [facility] Stop: 11/15/16 13:29 Last Admin: 09/18/16 05:25 Dose: 75 mls/hr Lactobacillus Rhamnosus (Culturelle) 1 each GT Q12H [facility] Stop: 11/12/16 08:59 Last Admin: 09/18/16 09:14 Dose: 1 each Loperamide HCl (Imodium 1mg/5ml Suspension) 2 mg GT Q4H PRN PRN Reason: Diarrhea Lorazepam (Ativan) 0.5 mg GT Q6H PRN; Protocol PRN Reason: Anxiety Stop: 11/11/16 20:15 Last Admin: 09/13/16 21:48 Dose: 0.5 mg Magnesium Hydroxide (Milk Of Magnesia) 30 ml GT HS PRN PRN Reason: Constipation Stop: 11/11/16 20:15 Miscellaneous (Vancomycin Iv Per Pharmacy) 1 ea MC PRN DC Stop: 11/11/16 20:29 Mupirocin (Bactroban Oint) 1 appl TP BID [facility] Stop: 09/19/16 16:59 Last Admin: 09/18/16 09:16 Dose: 1 appl Ondansetron HCl (Zofran) 4 mg IV Q8H PRN PRN Reason: Nausea / Vomiting Stop: 11/11/16 20:19 Pantoprazole Sodium (Protonix) 40 mg GT Q24H [facility] Stop: 11/13/16 08:59 Last Admin: 09/18/16 09:14 Dose: 40 mg Sodium Phosphate (Fleet Enema) 135 ml RC Q48H PRN PRN Reason: IF DULCOLAX INEFFECTIVE Stop: 11/11/16 20:15 General: demented HEENT: NC/AT, PERRLA Neck: Supple Lungs: congested Cardiovascular: RRR, Normal S1, Normal S2 Abdomen: soft non-tender, globular, +GT, positive bowel sound Extremities: excoriation, contracture Neurological: lethargic, unable to follow command - Procedures Procedures: Procedures Procedure Code Date ASSISTANCE WITH RESPIRATORY VENTILATION, 24-96 HRS, CPAP [id number] 09/12/16 [place] [id number] 04/15/16 IMMUNIZATION ADMIN [id number] 04/15/16 INSERT PICC CATH [id number] 04/15/16 INSERTION OF INFUSION DEVICE INTO R ATRIUM, PERC APPROACH [id number] 04/15/16 INTRODUCTION OF SERUM/TOX/VACCINE INTO MUSCLE, PERC APPROACH [id number] 04/15/16 POS AIRWAY PRESSURE CPAP [id number] 09/12/16 Internal Medicine Assmt/Plan - Assessment Assessment: severe sepsis acute respiratory failure dementia acute renal failure electroytes abn decub ulcer - Plan Plan: cont on bipap pulm follow up renal follow up correct lytes cont on iv abx joao garcias fuction improving will replace lytes Nutritional Asmnt/Malnutr-PDOC - Dietary Evaluation Malnutrition Findings (Please click <Entered> for more info): Nutritional Asmnt/Malnutrition Start: 09/13/16 11: 06 Text: Status: Complete Freq: Document 09/13/16 11:06 GSUN (Rec: 09/13/16 11:16 GSUN [email or web address]) Nutritional Asmnt/Malnutrition Patient General Information Nutritional Screening Consult Diagnosis ER: Sepsis, acute UTI, acute dehydration, actue renal failure Pertinent Medical Hx/Surgical Hx ER: dementia, HTN, depression, schizophrenia Subjective Information 65 year old female from SNF. Pt admitted for acute severe abnormal labs. RD consult wound. Pt was soundly asleep during visit, did not wake to RD's call, palced on bipap after RD's visit. Observed tube feeding infusing as ordered. Unable to obtain CBW due to bedscale on special settings. Mild wastings to temporals. Spoke to RN, tolerating tube feeding, no diarrhea. RN also stated pt appeared to be in critical state. Current Diet Order/ Nutrition Support Diabetisource 60ml/hr x 24hrs, providing 1440kcal, 72g protein. 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 Water flush 150ml every shift. Skin Integrity/Comment: Ruslan Tian. 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 No wound care note yet. Estimated Nutritional Goals Calories/Kcals/Kg IBW 120lb/54.5kg Kcals Calculated 1635-1908kcal (30-35kcal/kg, sepsis) Protein Calculated 71-87g (1.3-1.6g/kg, sepsis, ? wound) Fluid: ml 1635-1908ml (1ml/kcal) Nutritional Problem 1. Problem Problem Increased nutrient needs related to Etiology hypermetabolic state aeb Signs/Symptoms: ER: sepsis Intervention/Recommendation Comments 1. When medically appropriate, recommend increasing Diabetisource to 70ml/hr x 20hrs, providing 1680kcal, 84g protein, 1145ml free water. Current order meeting 88% of lower end of estimated nutritional needs with consideration of diagnoses. Expected Outcomes/Goals Expected Outcomes/Goals 1. Pt to meet 100% estimated nutritional needs on tube feeding with tolerance.
[2016-09-18] MEDS: D5-0.45NS 1,000 ML IV SCH (16:39)
--- NOTE | 2016-09-18 19:43 | General Progress Note ---
Subjective - Review of Systems Service Date: 09/18/16 (awake communicative but on restraint for fall prevention ) Objective - Results Result Diagrams: 09/18/16 05:20 09/18/16 05:20 Recent Labs: Laboratory Last Values WBC 8.9 Th/cmm (4.8-10.8) 09/18/16 05:20 RBC 3.04 Mil/cmm (3.80-5.10) L 09/18/16 05:20 Hgb 9.4 gm/dL (11.7-15.5) L 09/18/16 05:20 Hct 27.0 % (35.0-45.0) L 09/18/16 05:20 MCV 88.9 fl (81-100) 09/18/16 05:20 MCH 31.0 pg (27.0-31.0) 09/18/16 05:20 MCHC Differential 34.9 pg (28.0-36.0) 09/18/16 05:20 RDW 13.9 % (11.5-20.0) 09/18/16 05:20 Plt Count 168 Th/cmm (150-400) 09/18/16 05:20 MPV 10.6 fl 09/18/16 05:20 Neutrophils % 64.0 % (40.0-80.0) 09/18/16 05:20 Band Neutrophils % 3 % (0-10) 09/14/16 09:00 Lymphocytes % 24.6 % (20.0-50.0) 09/18/16 05:20 Monocytes % 3.9 % (2.0-10.0) 09/18/16 05:20 Eosinophils % 6.9 % (0.0-5.0) H 09/18/16 05:20 Basophils % 0.6 % (0.0-2.0) 09/18/16 05:20 Neutrophils (Manual) 89 % (40-80) H 09/14/16 09:00 Lymphocytes 3 % (20-50) L 09/14/16 09:00 Monocytes 2 % (2-10) 09/14/16 09:00 Eosinophils 3 % (0-5) 09/14/16 09:00 Basophils 0 % (0-3) 09/12/16 17:20 Platelet Estimate ADEQUATE (NORMAL) 09/14/16 09:00 Platelet Morphology NORMAL (NORMAL) 09/13/16 05:34 RBC Morph Micro Appear NORMAL (NORMAL) 09/14/16 09:00 PT 10.3 SECONDS (9.5-11.5) 09/12/16 17:20 INR 0.99 (0.5-1.4) 09/12/16 17:20 PTT (Actin FS) 20.7 SECONDS (26.0-38.0) L 09/12/16 17:20 Specimen Source Arterial 09/14/16 09:12 Sample Site Left Radial 09/14/16 09:12 pH 7.47 (7.35-7.45) H 09/14/16 09:12 pCO2 38.0 mmHg (35.0-45.0) 09/14/16 09:12 pO2 159.0 mmHg (80.0-100.0) H 09/14/16 09:12 HCO3 28.0 mEq/L (20.0-26.0) H 09/14/16 09:12 Base Excess 3.9 mEq/L (-3.0-3.0) H 09/14/16 09:12 O2 Saturation 100.0 % (92.0-100.0) 09/14/16 09:12 Luis Miguel Test PASS 09/14/16 09:12 Vent Rate 12 09/14/16 09:12 Inspired O2 30 09/14/16 09:12 Critical Value PW 09/14/16 09:12 Sodium 139 mEq/L (136-145) 09/18/16 05:20 Potassium 3.6 mEq/L (3.5-5.1) 09/18/16 05:20 Chloride 111 mEq/L (98-107) H 09/18/16 05:20 Carbon Dioxide 24.4 mEq/L (21.0-31.0) 09/18/16 05:20 Anion Gap 7.2 (7.0-16.0) 09/18/16 05:20 BUN 16 mg/dL (7-25) 09/18/16 05:20 Creatinine 0.4 mg/dL (0.6-1.2) L 09/18/16 05:20 Est GFR ( Amer) > 60.0 ml/min (>90) 09/18/16 05:20 Est GFR (Non-Af Amer) > 60.0 ml/min 09/18/16 05:20 BUN/Creatinine Ratio 40.0 09/18/16 05:20 Glucose 107 mg/dL (70-105) H 09/18/16 05:20 Hemoglobin A1c % 6.6 % (4.0-6.0) H 09/12/16 17:20 Whole Bld Lactic Acid 1.22 mmol/L (0.60-1.99) 09/12/16 19:20 Calcium 8.8 mg/dL (8.6-10.3) 09/18/16 05:20 Magnesium 2.1 mg/dL (1.9-2.7) 09/17/16 05:13 Total Bilirubin 0.3 mg/dL (0.3-1.0) 09/15/16 05:28 AST 12 U/L (13-39) L 09/15/16 05:28 ALT 17 U/L (7-52) 09/15/16 05:28 Alkaline Phosphatase 47 U/L (34-104) 09/15/16 05:28 Ammonia 30 umol/L (16-53) 09/17/16 05:13 Creatine Kinase 83 U/L (30-223) 09/12/16 17:20 B-Natriuretic Peptide 60.0 pg/mL (5.0-100.0) 09/18/16 05:20 Total Protein 6.7 gm/dL (6.0-8.3) 09/15/16 05:28 Albumin 3.3 gm/dL (3.7-5.3) L 09/15/16 05:28 Globulin 3.4 gm/dL 09/15/16 05:28 Albumin/Globulin Ratio 1.0 (1.0-1.8) 09/15/16 05:28 Vitamin B12 368 pg/mL (211-946) 09/14/16 09:00 Folic Acid >20.0 ng/mL (>3.0) 09/14/16 09:00 TSH 1.54 uIU/ml (0.34-5.60) 09/13/16 05:34 Urine Source CATH 09/12/16 17:05 Urine Color YELLOW 09/12/16 17:05 Urine Clarity CLOUDY (CLEAR) H 09/12/16 17:05 Urine pH 8.5 09/12/16 17:05 Ur Specific [place] 1.015 (1.005-1.030) 09/12/16 17:05 Urine Protein 100 mg/dL (NEGATIVE) H 09/12/16 17:05 Urine Glucose (UA) NEGATIVE mg/dL (NEGATIVE) 09/12/16 17:05 Urine Ketones NEGATIVE mg/dL (NEGATIVE) 09/12/16 17:05 Urine Blood SMALL (NEGATIVE) H 09/12/16 17:05 Urine Nitrate POSITIVE (NEGATIVE) H 09/12/16 17:05 Urine Bilirubin NEGATIVE (NEGATIVE) 09/12/16 17:05 Urine Urobilinogen 0.2 E.U./dL (0.2 - 1.0) 09/12/16 17:05 Ur Leukocyte Esterase SMALL (NEGATIVE) H 09/12/16 17:05 Urine RBC 5-10 /hpf (0-5) H 09/12/16 17:05 Urine WBC 6-10 /hpf (0-5) H 09/12/16 17:05 Ur Epithelial Cells MANY /lpf (FEW) 09/12/16 17:05 Triple Phos Crystals MANY /hpf (FEW) 09/12/16 17:05 Urine Bacteria MANY /hpf (NONE SEEN) 09/12/16 17:05 Ur Random Sodium 118 mmol/L 09/17/16 15:20 Vancomycin Trough 11.2 ug/mL (10-20) 09/16/16 09:15 - Physical Exam Vitals and I&O: Vital Signs Temp 98.4 F 09/18/16 16:00 Pulse 99 09/18/16 16:00 Resp 18 09/18/16 16:00 BP 96/61 09/18/16 16:00 Pulse Ox 98 09/18/16 16:00 Intake & Output 09/18/16 09/18/16 09/19/16 06:59 18:59 06:59 Intake Total 1550 800 Output Total 300 Balance 1250 800 Weight (lbs) 62.324 kg Intake: Intake, IV Amount 1000 D5W w/20 mEq KCL 1,000 ml 1000 @ 75 mls/hr IV .[id number] [facility] Rx#:[id number] Tube Feeding 350 350 Other 200 450 Output: Urine 300 Other: # Voids 3 # Bowel Movements 2 2 Stool Characteristics Liquid Liquid Brown Brown Active Medications: Current Medications Acetaminophen (Tylenol 650mg/20.3ml Suspension) 650 mg GT Q6HR PRN PRN Reason: Pain or Fever >101 Stop: 11/11/16 20:15 Last Admin: 09/15/16 20:51 Dose: 650 mg Acetaminophen/Hydrocodone Bitart ([place] 5mg/325mg) 1 tab GT Q4H PRN PRN Reason: Pain (Severe) Stop: 11/11/16 20:19 Last Admin: 09/15/16 18:30 Dose: 1 tab Albuterol/Ipratropium (Duoneb Neb) 3 ml HHN Q6HRT [facility] Stop: 11/12/16 12:59 Last Admin: 09/18/16 18:50 Dose: 3 ml Ascorbic Acid (Vitamin C) 500 mg GT DAILY [facility] Stop: 11/12/16 08:59 Last Admin: 09/18/16 09:14 Dose: 500 mg Bisacodyl (Dulcolax 10 Mg Supp) 10 mg RC DAILY PRN PRN Reason: IF MOM INEFFECTIVE Stop: 11/11/16 20:15 Guaifenesin (Robitussin) 200 mg GT Q4HR PRN PRN Reason: Cough or Congestion Stop: 11/11/16 20:19 Heparin Sodium (Porcine) (Heparin) 5,000 units SUBQ Q12HR [facility] Stop: 11/11/16 20:59 Last Admin: 09/18/16 09:14 Dose: 5,000 units Vancomycin HCl 1 gm/ Sodium (Chloride) 250 mls @ 165 mls/hr IV Q24H [facility] Stop: 11/12/16 09:59 Last Admin: 09/18/16 10:35 Dose: 165 mls/hr Meropenem 500 mg/ Sodium (Chloride) 100 mls @ 100 mls/hr IV Q12HR [facility] Stop: 11/12/16 13:59 Last Admin: 09/17/16 20:54 Dose: 100 mls/hr Dextrose/Sodium Chloride (D5-0.45ns) 1,000 mls @ 60 mls/hr IV .[id number] [facility] Stop: 11/17/16 15:59 Last Admin: 09/18/16 16:39 Dose: 60 mls/hr Lactobacillus Rhamnosus (Culturelle) 1 each GT Q12H [facility] Stop: 11/12/16 08:59 Last Admin: 09/18/16 09:14 Dose: 1 each Loperamide HCl (Imodium 1mg/5ml Suspension) 2 mg GT Q4H PRN PRN Reason: Diarrhea Lorazepam (Ativan) 0.5 mg GT Q6H PRN; Protocol PRN Reason: Anxiety Stop: 11/11/16 20:15 Last Admin: 09/13/16 21:48 Dose: 0.5 mg Magnesium Hydroxide (Milk Of Magnesia) 30 ml GT HS PRN PRN Reason: Constipation Stop: 11/11/16 20:15 Miscellaneous (Vancomycin Iv Per Pharmacy) 1 ea MC PRN [facility] Stop: 11/11/16 20:29 Mupirocin (Bactroban Oint) 1 appl TP BID [facility] Stop: 09/19/16 16:59 Last Admin: 09/18/16 16:39 Dose: 1 appl Ondansetron HCl (Zofran) 4 mg IV Q8H PRN PRN Reason: Nausea / Vomiting Stop: 11/11/16 20:19 Pantoprazole Sodium (Protonix) 40 mg GT Q24H [facility] Stop: 11/13/16 08:59 Last Admin: 09/18/16 09:14 Dose: 40 mg Sodium Phosphate (Fleet Enema) 135 ml RC Q48H PRN PRN Reason: IF DULCOLAX INEFFECTIVE Stop: 11/11/16 20:15 General: Alert, No acute distress HEENT: Atraumatic Neck: Supple Cardiovascular: Regular rate Lungs: Clear to auscultation, Normal air movement Abdomen: Bowel sounds (normal no dostention) Extremities: Other (no edemal ) - Procedures Procedures: Procedures Procedure Code Date ASSISTANCE WITH RESPIRATORY VENTILATION, 24-96 HRS, CPAP [id number] 09/12/16 [place] [address] 04/15/16 IMMUNIZATION ADMIN 92999 04/15/16 INSERT PICC CATH [id number] 04/15/16 INSERTION OF INFUSION DEVICE INTO R A[facility], PERC APPROACH [id number] 04/15/16 INTRODUCTION OF SERUM/TOX/VACCINE INTO MUSCLE, PERC APPROACH [id number] 04/15/16 POS AIRWAY PRESSURE CPAP 80434 09/12/16 Assessment/Plan - Problem List Patient Problems: All Active Problems FEVER WITH ELEVATED WBC, BUN (Acute) Hyperosmolality and hypernatremia (Acute) E87.0 azotemia better (Acute) Weakness (Acute) - Plan Plan: continue to monitor IV fluid and volume status Nutritional Asmnt/Malnutr-PDOC - Dietary Evaluation Malnutrition Findings (Please click <Entered> for more info): Nutritional Asmnt/Malnutrition Start: 09/13/16 11: 06 Text: Status: Complete Freq: Document 09/13/16 11:06 CHUY (Rec: 09/13/16 11:16 [email or web address]) Nutritional Asmnt/Malnutrition Patient General Information Nutritional Screening Consult Diagnosis ER: Sepsis, acute UTI, acute dehydration, actue renal failure Pertinent Medical Hx/Surgical Hx ER: dementia, HTN, depression, schizophrenia Subjective Information 65 year old female from SNF. Pt admitted for acute severe abnormal labs. RD consult wound. Pt was soundly asleep during visit, did not wake to RD's call, palced on bipap after RD's visit. Observed tube feeding infusing as ordered. Unable to obtain CBW due to bedscale on special settings. Mild wastings to temporals. Spoke to RN, tolerating tube feeding, no diarrhea. RN also stated pt appeared to be in critical state. Current Diet Order/ Nutrition Support Diabetisource 60ml/hr x 24hrs, providing 1440kcal, 72g protein. Pertinent Medications Vitamin C, D5, Culturelle, MOM , Vancomycin, Zofran, Protonix , Fleet Enema Pertinent Labs 09/12: sodium 156H, BUN 112H, creatinine 1.3H, glucose 226H, A1c 6.6H /3: sodium 160H, BUN 101H, glucose 239H Nutritional Hx/Data Height 1.63 m Height (Calculated Centimeters) 162.6 Current Weight (lbs) 62.142 kg Weight (Calculated Kilograms) 62.1 Weight (Calculated Grams) 02149.2 [place] Body Weight 120 Weight Status Approriate GI Symptoms Food Allergies No Cultural/Ethnic/Spiritism Belief SNF order: glucerna 1.2 at 60ml/hrs x 20hrs, on at 2pm off at 10am, providing 1440kcal. Water flush 150ml every shift. 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 No wound care note yet. Estimated Nutritional Goals Calories/Kcals/Kg IBW 120lb/54.5kg Kcals Calculated 1635-1908kcal (30-35kcal/kg, sepsis) Protein Calculated 71-87g (1.3-1.6g/kg, sepsis, ? wound) Fluid: ml 1635-1908ml (1ml/kcal) Nutritional Problem 1. Problem Problem Increased nutrient needs related to Etiology hypermetabolic state aeb Signs/Symptoms: ER: sepsis Intervention/Recommendation Comments 1. When medically appropriate, recommend increasing Diabetisource to 70ml/hr x 20hrs, providing 1680kcal, 84g protein, 1145ml free water. Current order meeting 88% of lower end of estimated nutritional needs with consideration of diagnoses. Expected Outcomes/Goals Expected Outcomes/Goals 1. Pt to meet 100% estimated nutritional needs on tube feeding with tolerance.
[2016-09-18] MEDS: Meropenem 500 MG in Sodium Chloride 0.9% 100 ML IV SCH (20:29)
[2016-09-19] MEDS: Albuterol/Ipratropium Neb 3 ML AERS HHN SCH ×4 (00:33→18:41)
[2016-09-19] MEDS: Pantoprazole 40 mg/Packet GT SCH (09:01)
[2016-09-19] MEDS: Multivitamin w/ Minerals Tab GT SCH (09:01)
[2016-09-19] MEDS: Venelex 60gm Tube TP SCH (09:01)
[2016-09-19] MEDS: Ascorbic Acid 500 mg/5 mL UDC GT SCH (09:02)
[2016-09-19] MEDS: Lactobacillus Rhamnosus 10 Billion CFU Capsule GT SCH ×2 (09:02→20:28)
[2016-09-19] MEDS: D5-0.45NS 1,000 ML IV SCH (09:20)
--- NOTE | 2016-09-19 13:10 | Internal Medicine Prog Note ---
Internal Medicine Subjective - Subjective Patient seen and examined:: with staff, chart reviewed Patient is:: awake, non-verbal, non-interactive Patient Complaints of:: congestion Per staff patient is:: no adverse event, confused Internal Medicine Objective - Results Result Diagrams: 09/18/16 05:20 09/18/16 05:20 Recent Labs: Laboratory Last Values WBC 8.9 Th/cmm (4.8-10.8) 09/18/16 05:20 RBC 3.04 Mil/cmm (3.80-5.10) L 09/18/16 05:20 Hgb 9.4 gm/dL (11.7-15.5) L 09/18/16 05:20 Hct 27.0 % (35.0-45.0) L 09/18/16 05:20 MCV 88.9 fl (81-100) 09/18/16 05:20 MCH 31.0 pg (27.0-31.0) 09/18/16 05:20 MCHC Differential 34.9 pg (28.0-36.0) 09/18/16 05:20 RDW 13.9 % (11.5-20.0) 09/18/16 05:20 Plt Count 168 Th/cmm (150-400) 09/18/16 05:20 MPV 10.6 fl 09/18/16 05:20 Neutrophils % 64.0 % (40.0-80.0) 09/18/16 05:20 Band Neutrophils % 3 % (0-10) 09/14/16 09:00 Lymphocytes % 24.6 % (20.0-50.0) 09/18/16 05:20 Monocytes % 3.9 % (2.0-10.0) 09/18/16 05:20 Eosinophils % 6.9 % (0.0-5.0) H 09/18/16 05:20 Basophils % 0.6 % (0.0-2.0) 09/18/16 05:20 Neutrophils (Manual) 89 % (40-80) H 09/14/16 09:00 Lymphocytes 3 % (20-50) L 09/14/16 09:00 Monocytes 2 % (2-10) 09/14/16 09:00 Eosinophils 3 % (0-5) 09/14/16 09:00 Basophils 0 % (0-3) 09/12/16 17:20 Platelet Estimate ADEQUATE (NORMAL) 09/14/16 09:00 Platelet Morphology NORMAL (NORMAL) 09/13/16 05:34 RBC Morph Micro Appear NORMAL (NORMAL) 09/14/16 09:00 PT 10.3 SECONDS (9.5-11.5) 09/12/16 17:20 INR 0.99 (0.5-1.4) 09/12/16 17:20 PTT (Actin FS) 20.7 SECONDS (26.0-38.0) L 09/12/16 17:20 Specimen Source Arterial 09/14/16 09:12 Sample Site Left Radial 09/14/16 09:12 pH 7.47 (7.35-7.45) H 09/14/16 09:12 pCO2 38.0 mmHg (35.0-45.0) 09/14/16 09:12 pO2 159.0 mmHg (80.0-100.0) H 09/14/16 09:12 HCO3 28.0 mEq/L (20.0-26.0) H 09/14/16 09:12 Base Excess 3.9 mEq/L (-3.0-3.0) H 09/14/16 09:12 O2 Saturation 100.0 % (92.0-100.0) 09/14/16 09:12 Luis Miguel Test PASS 09/14/16 09:12 Vent Rate 12 09/14/16 09:12 Inspired O2 30 09/14/16 09:12 Critical Value PW 09/14/16 09:12 Sodium 139 mEq/L (136-145) 09/18/16 05:20 Potassium 3.6 mEq/L (3.5-5.1) 09/18/16 05:20 Chloride 111 mEq/L (98-107) H 09/18/16 05:20 Carbon Dioxide 24.4 mEq/L (21.0-31.0) 09/18/16 05:20 Anion Gap 7.2 (7.0-16.0) 09/18/16 05:20 BUN 16 mg/dL (7-25) 09/18/16 05:20 Creatinine 0.4 mg/dL (0.6-1.2) L 09/18/16 05:20 Est GFR ( Amer) > 60.0 ml/min (>90) 09/18/16 05:20 Est GFR (Non-Af Amer) > 60.0 ml/min 09/18/16 05:20 BUN/Creatinine Ratio 40.0 09/18/16 05:20 Glucose 107 mg/dL (70-105) H 09/18/16 05:20 Hemoglobin A1c % 6.6 % (4.0-6.0) H 09/12/16 17:20 Whole Bld Lactic Acid 1.22 mmol/L (0.60-1.99) 09/12/16 19:20 Calcium 8.8 mg/dL (8.6-10.3) 09/18/16 05:20 Magnesium 2.1 mg/dL (1.9-2.7) 09/17/16 05:13 Total Bilirubin 0.3 mg/dL (0.3-1.0) 09/15/16 05:28 AST 12 U/L (13-39) L 09/15/16 05:28 ALT 17 U/L (7-52) 09/15/16 05:28 Alkaline Phosphatase 47 U/L (34-104) 09/15/16 05:28 Ammonia 30 umol/L (16-53) 09/17/16 05:13 Creatine Kinase 83 U/L (30-223) 09/12/16 17:20 B-Natriuretic Peptide 60.0 pg/mL (5.0-100.0) 09/18/16 05:20 Total Protein 6.7 gm/dL (6.0-8.3) 09/15/16 05:28 Albumin 3.3 gm/dL (3.7-5.3) L 09/15/16 05:28 Globulin 3.4 gm/dL 09/15/16 05:28 Albumin/Globulin Ratio 1.0 (1.0-1.8) 09/15/16 05:28 Vitamin B12 368 pg/mL (211-946) 09/14/16 09:00 Folic Acid >20.0 ng/mL (>3.0) 09/14/16 09:00 TSH 1.54 uIU/ml (0.34-5.60) 09/13/16 05:34 Urine Source CATH 09/12/16 17:05 Urine Color YELLOW 09/12/16 17:05 Urine Clarity CLOUDY (CLEAR) H 09/12/16 17:05 Urine pH 8.5 09/12/16 17:05 Ur Specific [place] 1.015 (1.005-1.030) 09/12/16 17:05 Urine Protein 100 mg/dL (NEGATIVE) H 09/12/16 17:05 Urine Glucose (UA) NEGATIVE mg/dL (NEGATIVE) 09/12/16 17:05 Urine Ketones NEGATIVE mg/dL (NEGATIVE) 09/12/16 17:05 Urine Blood SMALL (NEGATIVE) H 09/12/16 17:05 Urine Nitrate POSITIVE (NEGATIVE) H 09/12/16 17:05 Urine Bilirubin NEGATIVE (NEGATIVE) 09/12/16 17:05 Urine Urobilinogen 0.2 E.U./dL (0.2 - 1.0) 09/12/16 17:05 Ur Leukocyte Esterase SMALL (NEGATIVE) H 09/12/16 17:05 Urine RBC 5-10 /hpf (0-5) H 09/12/16 17:05 Urine WBC 6-10 /hpf (0-5) H 09/12/16 17:05 Ur Epithelial Cells MANY /lpf (FEW) 09/12/16 17:05 Triple Phos Crystals MANY /hpf (FEW) 09/12/16 17:05 Urine Bacteria MANY /hpf (NONE SEEN) 09/12/16 17:05 Ur Random Sodium 118 mmol/L 09/17/16 15:20 Vancomycin Trough 11.2 ug/mL (10-20) 09/16/16 09:15 Random Vancomycin 16.4 ug/mL (5.0-40.0) 09/19/16 09:00 - Physical Exam Vitals and I&O: Vital Signs Temp 97.8 F 09/19/16 12:00 Pulse 73 09/19/16 12:42 Resp 22 09/19/16 12:44 BP 99/45 09/19/16 12:00 Pulse Ox 97 09/19/16 12:42 Intake & Output 09/18/16 09/19/16 09/19/16 18:59 06:59 18:59 Intake Total 4910 479 9200 Output Total 901 Balance 1050 -701 1000 Weight (lbs) 62.324 kg Intake: Intake, IV Amount 022 987 0553 D5-0.45NS 1,000 ml @ 60 1000 mls/hr IV .[id number] [facility] Rx #:[id number] Meropenem 500 mg In 100 Sodium Chloride 0.9% 100 ml @ 100 mls/hr IV Q12HR [facility] Rx#:[id number] Vancomycin HCl 1 gm In 250 Sodium Chloride 0.9% 250 ml @ 165 mls/hr IV Q24H [facility] Rx#:[id number] Tube Feeding 350 Other 450 100 Output: Urine 400 Stool 1 Other 500 Other: # Voids 3 # Bowel Movements 2 Stool Characteristics Liquid Liquid Soft Brown Brown Formed Active Medications: Current Medications Acetaminophen (Tylenol 650mg/20.3ml Suspension) 650 mg GT Q6HR PRN PRN Reason: Pain or Fever >101 Stop: 11/11/16 20:15 Last Admin: 09/15/16 20:51 Dose: 650 mg Acetaminophen/Hydrocodone Bitart ([place] 5mg/325mg) 1 tab GT Q4H PRN PRN Reason: Pain (Severe) Stop: 11/11/16 20:19 Last Admin: 09/15/16 18:30 Dose: 1 tab Albuterol/Ipratropium (Duoneb Neb) 3 ml HHN Q6HRT [facility] Stop: 11/12/16 12:59 Last Admin: 09/19/16 12:37 Dose: 3 ml Ascorbic Acid (Vitamin C) 500 mg GT DAILY [facility] Stop: 11/12/16 08:59 Last Admin: 09/19/16 09:02 Dose: 500 mg Bisacodyl (Dulcolax 10 Mg Supp) 10 mg RC DAILY PRN PRN Reason: IF MOM INEFFECTIVE Stop: 11/11/16 20:15 Guaifenesin (Robitussin) 200 mg GT Q4HR PRN PRN Reason: Cough or Congestion Stop: 11/11/16 20:19 Heparin Sodium (Porcine) (Heparin) 5,000 units SUBQ Q12HR [facility] Stop: 11/11/16 20:59 Last Admin: 09/19/16 09:02 Dose: 5,000 units Vancomycin HCl 1 gm/ Sodium (Chloride) 250 mls @ 165 mls/hr IV Q24H [facility] Stop: 11/12/16 09:59 Last Admin: 09/19/16 10:00 Dose: 165 mls/hr Meropenem 500 mg/ Sodium (Chloride) 100 mls @ 100 mls/hr IV Q12HR [facility] Stop: 11/12/16 13:59 Last Infusion: 09/18/16 21:29 Dose: Infused Dextrose/Sodium Chloride (D5-0.45ns) 1,000 mls @ 60 mls/hr IV .[id number] [facility] Stop: 11/17/16 15:59 Last Admin: 09/19/16 09:20 Dose: 60 mls/hr Lactobacillus Rhamnosus (Culturelle) 1 each GT Q12H [facility] Stop: 11/12/16 08:59 Last Admin: 09/19/16 09:02 Dose: 1 each Loperamide HCl (Imodium 1mg/5ml Suspension) 2 mg GT Q4H PRN PRN Reason: Diarrhea Lorazepam (Ativan) 0.5 mg GT Q6H PRN; Protocol PRN Reason: Anxiety Stop: 11/11/16 20:15 Last Admin: 09/13/16 21:48 Dose: 0.5 mg Magnesium Hydroxide (Milk Of Magnesia) 30 ml GT HS PRN PRN Reason: Constipation Stop: 11/11/16 20:15 Miscellaneous (Vancomycin Iv Per Pharmacy) 1 ea MC PRN [facility] Stop: 11/11/16 20:29 Mupirocin (Bactroban Oint) 1 appl TP BID [facility] Stop: 09/19/16 16:59 Last Admin: 09/19/16 09:01 Dose: 1 appl Ondansetron HCl (Zofran) 4 mg IV Q8H PRN PRN Reason: Nausea / Vomiting Stop: 11/11/16 20:19 Pantoprazole Sodium (Protonix) 40 mg GT Q24H [facility] Stop: 11/13/16 08:59 Last Admin: 09/19/16 09:01 Dose: 40 mg Sodium Phosphate (Fleet Enema) 135 ml RC Q48H PRN PRN Reason: IF DULCOLAX INEFFECTIVE Stop: 11/11/16 20:15 General: congested, demented HEENT: NC/AT, PERRLA, other (b temporal wasting) Neck: Supple, No JVD Lungs: congested, rales, ronchi Cardiovascular: RRR, Normal S1, Normal S2 Abdomen: soft non-tender, +GT, positive bowel sound Extremities: excoriation, contracture, ulcers stage 2 Neurological: no change, disorganized, unable to follow command - Procedures Procedures: Procedures Procedure Code Date ASSISTANCE WITH RESPIRATORY VENTILATION, 24-96 HRS, CPAP [id number] 09/12/16 [place] [address] 04/15/16 IMMUNIZATION ADMIN 40616 04/15/16 INSERT PICC CATH [id number] 04/15/16 INSERTION OF INFUSION DEVICE INTO R [facility], PERC APPROACH [id number] 04/15/16 INTRODUCTION OF SERUM/TOX/VACCINE INTO MUSCLE, PERC APPROACH [id number] 04/15/16 POS AIRWAY PRESSURE CPAP 31094 09/12/16 Internal Medicine Assmt/Plan - Assessment Assessment: severe sepsis acute respiratory failure dementia acute renal failure electroytes abn decub ulcer - Plan Plan: cont on bipap pulm follow up renal follow up correct lytes cont on iv abx dw rn rejyothi fuction improving will replace lytes Nutritional Asmnt/Malnutr-PDOC - Dietary Evaluation Malnutrition Findings (Please click <Entered> for more info): Nutritional Asmnt/Malnutrition Start: 09/13/16 11: 06 Text: Status: Complete Freq: Document 09/13/16 11:06 GSUN (Rec: 09/13/16 11:16 GSUN [email or web address]) Nutritional Asmnt/Malnutrition Patient General Information Nutritional Screening Consult Diagnosis ER: Sepsis, acute UTI, acute dehydration, actue renal failure Pertinent Medical Hx/Surgical Hx ER: dementia, HTN, depression, schizophrenia Subjective Information 65 year old female from SNF. Pt admitted for acute severe abnormal labs. RD consult wound. Pt was soundly asleep during visit, did not wake to RD's call, palced on bipap after RD's visit. Observed tube feeding infusing as ordered. Unable to obtain CBW due to bedscale on special settings. Mild wastings to temporals. Spoke to RN, tolerating tube feeding, no diarrhea. RN also stated pt appeared to be in critical state. Current Diet Order/ Nutrition Support Diabetisource 60ml/hr x 24hrs, providing 1440kcal, 72g protein. Pertinent Medications Vitamin C, D5, Culturelle, MOM , Vancomycin, Zofran, Protonix , Fleet Enema Pertinent Labs 09/12: sodium 156H, BUN 112H, creatinine 1.3H, glucose 226H, A1c 6.6H 09/11: sodium 160H, BUN 101H, glucose 239H Nutritional Hx/Data Height 1.63 m Height (Calculated Centimeters) 162.6 Current Weight (lbs) 62.142 kg Weight (Calculated Kilograms) 62.1 Weight (Calculated Grams) 05055.2 [place] Body Weight 120 Weight Status Approriate GI Symptoms Food Allergies No Cultural/Ethnic/Caodaism Belief SNF order: glucerna 1.2 at 60ml/hrs x 20hrs, on at 2pm off at 10am, providing 1440kcal. Water flush 150ml every shift. Skin Integrity/Comment: Ruslan Tian. parts picker: coccyx pressure area. No wound care note yet. Estimated Nutritional Goals Calories/Kcals/Kg IBW 120lb/54.5kg Kcals Calculated 1635-1908kcal (30-35kcal/kg, sepsis) Protein Calculated 71-87g (1.3-1.6g/kg, sepsis, ? wound) Fluid: ml 1635-1908ml (1ml/kcal) Nutritional Problem 1. Problem Problem Increased nutrient needs related to Etiology hypermetabolic state aeb Signs/Symptoms: ER: sepsis Intervention/Recommendation Comments 1. When medically appropriate, recommend increasing Diabetisource to 70ml/hr x 20hrs, providing 1680kcal, 84g protein, 1145ml free water. Current order meeting 88% of lower end of estimated nutritional needs with consideration of diagnoses. Expected Outcomes/Goals Expected Outcomes/Goals 1. Pt to meet 100% estimated nutritional needs on tube feeding with tolerance.
[2016-09-19] MEDS: Meropenem 500 MG in Sodium Chloride 0.9% 100 ML IV SCH (20:28)
--- NOTE | 2016-11-20 00:55 | Discharge Summary ---
DATE OF DISCHARGE: 09/20/2016 CHIEF COMPLAINT: Change in mental status, generalized weakness, elevated BUN and creatinine, and abnormal labs. FINAL DIAGNOSES: Acute respiratory failure, leukocytosis, urinary tract infection, severe sepsis, anemia, hypoxemia, hypernatremia, acute renal failure, status post decubitus ulcer incision and drainage, dementia, schizoaffective disorder. HISTORY: This is a 65-year-old female with history of dementia, severe malnutrition, dysphagia, status post G-tube, COPD, was admitted from nursing facility ____ fever, and elevated BUN and creatinine. The patient was barely responsive. The patient was admitted for further management. PHYSICAL EXAMINATION: VITAL SIGNS: Blood pressure 110/64, respirations 18, pulse 80, temperature 98.6. GENERAL: Elderly female, appears chronically ill. NECK: Supple. No mass. LUNGS: Equal breath sounds, few rhonchi. HEART: Regular rate and rhythm without appreciable murmurs. ABDOMEN: Soft, nontender. EXTREMITIES: Positive excoriations. NEUROLOGIC: Limited. HOSPITAL COURSE: The patient was admitted to telemetry, continued IV hydration, aggressive IV hydration. The patient was referred to Dr. Gonzalez and Dr. Fuller for Renal as well as Dr. Gardner for Pulmonary. The patient was given IV steroids. Sputum culture was sent as well as blood culture. The patient's condition has remained tentative and unable to clear for transfer to nursing facility. CONDITION ON DISCHARGE: The patient's condition on discharge is fair. DISCHARGE INSTRUCTIONS: The patient to be transferred to [facility] for further management. ____ the child support case officer and they were agreeable to the above plan. JOB# [id number]
== END 2016-09-19 21:25 | DRG 871 ==
LOC: ER 17:00 → MSI 18:56 → TELE 09-14 10:39
PROVIDERS: ADMIT Internal Medicine; ATTEND Internal Medicine
PROC: 5A09457 Assistance with Respiratory Ventilation, 24-96 Consecutive Hours, Continuous Positive Airway Pressure (ICD-10-PCS; principal; 2016-09-13)
DX: A41.9 Sepsis, unspecified organism (principal); J96.01 Acute respiratory failure with hypoxia; N17.9 Acute kidney failure, unspecified; E87.0 Hyperosmolality and hypernatremia; N39.0 Urinary tract infection, site not specified; F32.9 Major depressive disorder, single episode, unspecified; Z66 Do not resuscitate; F03.90 Unspecified dementia, unspecified severity, without behavioral disturbance, psychotic disturbance, mood disturbance, and anxiety; R13.10 Dysphagia, unspecified; J44.9 Chronic obstructive pulmonary disease, unspecified; R65.20 Severe sepsis without septic shock; F25.9 Schizoaffective disorder, unspecified; N18.9 Chronic kidney disease, unspecified; I12.9 Hypertensive chronic kidney disease with stage 1 through stage 4 chronic kidney disease, or unspecified chronic kidney disease; E11.22 Type 2 diabetes mellitus with diabetic chronic kidney disease; D63.8 Anemia in other chronic diseases classified elsewhere; Z88.0 Allergy status to penicillin; Z93.1 Gastrostomy status; Z91.14 Patient's other noncompliance with medication regimen
CPT/HCPCS: 36415-UA; 36600-90; 71010-TC; 80048-TC; 80053-TC; 80202-TC; 81001-TC; 82140-TC; 82550-TC; 82607-90; 82746-90; 82803-TC; 83036-90; 83605; 83735-TC; 83880-TC; 84300-TC; 84443-TC; 85007-TC; 85025-TC; 85027-TC; 85610-TC; 85730-TC; 87086-90; 94640; 94660; 94760; J0696; J1644; J1956; J2001; J2185; J3370; J3480; J7030; J7070; Z7502; Z7610

== ENCOUNTER 2016-12-16 17:20 | Inpatient (IN) | payer MEDICARE, MEDICAID ==
[2016-12-16] MEDS ORDERED: Sodium Chloride 0.9% 1,000 ML IV ONE (18:05)
[2016-12-16] MEDS: Sodium Chloride 0.9% 1,000 ML IV ONE (18:51)
[2016-12-16 19:03] LABS: HEMATOCRIT 25.1 % (35.0-45.0); MEAN CELL VOLUME 89.7 fl (81-100); MEAN CORPUSCULAR HEMOGLOBIN 28.4 pg (27.0-31.0); MEAN CORPUSCULAR HGB CONC 31.7 pg (28.0-36.0); MEAN PLATELET VOLUME 12.2 fl; RED CELL DISTRIBUTION WIDTH 19.3 % (11.5-20.0)
[2016-12-16 19:09] LABS: ALB/GLOB RATIO 0.7 (1.0-1.8); ANION GAP 19.4 (7.0-16.0); BILIRUBIN,TOTAL 0.3 mg/dL (0.3-1.0); CALCIUM SERUM 10.3 mg/dL (8.6-10.3); CARBON DIOXIDE 22.1 mEq/L (21.0-31.0); CREATININE - SERUM 2.6 mg/dL (0.6-1.2)
[2016-12-16 19:25] LABS: WHITE BLOOD COUNT 28.4 Th/cmm (4.8-10.8)
[2016-12-16 19:26] LABS: PLATELET COUNT 390 Th/cmm (150-400)
[2016-12-16 19:27] LABS: BUN/CREATININE RATIO 55.8; POTASSIUM SERUM 6.5 mEq/L (3.5-5.1)
[2016-12-16 19:30] LABS: URINE BILIRUBIN NEGATIVE (NEGATIVE); URINE BLOOD NEGATIVE (NEGATIVE); URINE COLOR YELLOW; URINE GLUCOSE (UA) 250 mg/dL (NEGATIVE); URINE KETONE NEGATIVE (NEGATIVE); URINE PH >=9.0; URINE PROTEIN >300 mg/dL (NEGATIVE); URINE UROBILINOGEN 0.2 E.U./dL (0.2 - 1.0)
[2016-12-16 19:31] LABS: URINE RBC 0-2 /hpf (0-5)
[2016-12-16 19:32] LABS: URINE BACTERIA MANY /hpf (NONE SEEN); URINE EPITHELIAL CELLS FEW /lpf (FEW); URINE TRIPLE PHOSPHATE CRYSTAL FEW /hpf (FEW); URINE WBC 50-100 /hpf (0-5)
[2016-12-16] MEDS ORDERED: INSULIN HUMAN REGULAR 100 UNITS/ML UNIT SUBQ ONE (19:42)
[2016-12-16] MEDS ORDERED: INSULIN HUMAN REGULAR 100 UNITS/ML UNIT ONE (19:44)
[2016-12-16 19:48] LABS: NEUTROPHILS 88 % (40-80); TOTAL CELLS COUNTED 100
[2016-12-16 19:49] LABS: ANISOCYTOSIS 1+; PLATELET ESTIMATE ADEQUATE (NORMAL); PLATELET MORPHOLOGY NORMAL (NORMAL)
[2016-12-16] MEDS ORDERED: guaiFENesin 200 MG/10 ML UDC GT PRN (21:16)
[2016-12-16] MEDS ORDERED: LOPERAMIDE HCL 2 MG GT PRN (21:16)
[2016-12-16] MEDS ORDERED: Albuterol Nebulizer 2.5mg/3mL HHN PRN (21:20)
[2016-12-16] MEDS ORDERED: guaiFENesin 200 MG/10 ML UDC PO PRN (21:20)
[2016-12-16] MEDS ORDERED: Ipratropium Neb 0.5 mg/2.5 mL UD IH PRN (21:20)
[2016-12-16] MEDS ORDERED: Morphine Sulfate 2 mg/mL 1mL Syr IVP PRN (21:25)
[2016-12-16] MEDS ORDERED: Sodium Chloride 0.9% 1,000 ML IV SCH (21:30)
--- NOTE | 2016-12-16 21:30 | History and Physical ---
History of Present Illness - HPI Chief Complaint: fever sob HPI: 66 yo white female w multiple medical problem been co fever and sob noted to have elevated wbc and elevated lactic acid pt nonverbal Vital Signs: Last Vital Signs Temp 103 F 12/16/16 20:37 Pulse 134 12/16/16 20:37 Resp 28 12/16/16 20:37 BP 96/69 12/16/16 20:37 Pulse Ox 94 12/16/16 20:37 Past Medical History Cardiovascular: Report: HTN Pulmonary: Report: Bronchitis, Pneumonia [facility] NURSE PRACTITIONER: Report: Dementia GI: Report: Constipation, GERD, Gastritis Psych: Report: Anxiety, Psychosis Musculoskeletal: Report: Muscle Atrophy, Weakness, Stiffness Rheumatologic: Report: No pertinent Hx Infectious Disease: Report: No Pertinent Hx Renal/: Report: Acute Renal Failure, UTI Endocrine: Report: No Pertinent Hx, Osteoporosis Dermatology: Report: No Pertinent Hx - Past Surgical History Past Surgical History: Other (gt) Family Medical History - Family Member Maternal History Unknown: Yes Ethnicity: Unknown Living Status: Hx Family Cancer: No Hx Family Coronary Artery Disease: No Hx Family Congestive Heart Failure: No Hx Family Hypertension: No Hx Family Stroke: No Hx Family Diabetes: No Hx Family Seizures: No Hx Family Dementia: No Hx Family AIDS: No Hx Family HIV: No Hx Family COPD: No Hx Family Hepatitis: No Hx Family Psychiatric Problems: No Hx Family Tuberculosis: No Social History Smoke: No Alcohol: None Drugs: None Lives: Alone Domestic Violence: Negative - Medications Home Medications: Home Medication Medication Instructions Recorded Type Acetaminophen [Tylenol] 650 mg GT Q6HR PRN 04/15/16 History Acetaminophen [Tylenol Extra 1,000 mg GT Q8H PRN 09/12/16 History Strength] Acetaminophen [Tylenol] 650 mg GT DAILY 09/12/16 History Bisacodyl [Dulcolax 10 Mg Supp] 10 mg RC DAILY PRN 09/12/16 History Cran/Vitc/Mannose/Fos/Bromeln 30 ml GT DAILY 09/12/16 History [Uti-Stat 887 ml] Loperamide HCl [Anti-Diarrheal] 2 mg GT Q4H PRN 09/12/16 History Multivitamin w/ Minerals 1 tab GT DAILY 09/12/16 History [Theragran M] Mylanta 30 ml GT Q6H PRN 09/12/16 History traMADol HCl [Ultram] 50 mg GT Q6HR PRN 09/12/16 History Acetaminophen [Tylenol 650 mg GT Q6HR PRN #0 udc 09/19/16 Rx 650mg/20.3mL Suspension] Albuterol/Ipratropium Neb [Duoneb 3 ml HHN Q6HRT #0 aers 09/19/16 Rx Neb] Ascorbic Acid [Vitamin C] 500 mg GT DAILY #0 udc 09/19/16 Rx Balsam [place]/Blanco Oil [Venelex] 1 appl TP DAILY #0 appl 09/19/16 Rx Hydrocodone/APAP 5mg/325mg [[place] 1 tab GT Q4H PRN #0 tab 09/19/16 Rx 5mg/325mg] Lactobacillus Rhamnosus 1 each GT Q12H #0 cap.sprink 09/19/16 Rx [Culturelle] Loperamide [Imodium 1mg/5mL 2 mg GT Q4H PRN #0 udc 09/19/16 Rx Suspension] Lorazepam [Ativan] 0.5 mg GT Q6H PRN #0 tab 09/19/16 Rx Magnesium Hydroxide [Milk of 30 ml GT HS PRN #0 udc 09/19/16 Rx Magnesia] Multivitamin w/ Minerals 1 tab GT DAILY #0 tab 09/19/16 Rx [Theragran M] Pantoprazole [Protonix] 40 mg GT Q24H #0 pkt 09/19/16 Rx guaiFENesin [Robitussin] 200 mg GT Q4HR PRN #0 udc 09/19/16 Rx - Allergies Allergies/Adverse Reactions: Allergies Allergy/AdvReac Type Severity Reaction Status Date / Time Penicillins [PCN] Allergy Verified 04/17/16 14:17 Review of Systems - Review of Systems Constitutional: Report: Fever, Weakness Eyes: Report: No Significant ENT: Report: No Significant Respiratory: Report: Cough, Shortness of Breath Cardiovascular: Report: No Significant Gastrointestinal: Report: Abdominal Pain, Constipation Genitourinary: Report: No Significant Musculoskeletal: Report: No Significant Skin: Report: No Significant Neurological: Report: Weakness Physical Exam - Physical Exam Neck: Report: Within normal limits Cardiovascular Systems: Report: +s1/s2 noted, Regular, Rate and Rhythm, Systolic Murmur Respiratory: Report: Crackles, Rhonchi Abdomen: Report: Non-tender to palpation, PEG site is clean Back: Report: Inspection of back is within normal limits. Extremities: Report: Non-tender to palpation. Skin: Report: A wound was noted Neuro/Psych: Report: Disoriented to name time or place - Lab Results All Lab Results last 24 hours: Laboratory Last Values WBC 28.4 Th/cmm (4.8-10.8) H* D 12/16/16 18:45 RBC 2.80 Mil/cmm (3.80-5.20) L 12/16/16 18:45 Hgb 8.0 gm/dL (11.7-16.1) L 12/16/16 18:45 Hct 25.1 % (35.0-45.0) L 12/16/16 18:45 MCV 89.7 fl (81-100) 12/16/16 18:45 MCH 28.4 pg (27.0-31.0) 12/16/16 18:45 MCHC Differential 31.7 pg (28.0-36.0) 12/16/16 18:45 RDW 19.3 % (11.5-20.0) 12/16/16 18:45 Plt Count 390 Th/cmm (150-400) D 12/16/16 18:45 MPV 12.2 fl 12/16/16 18:45 Neutrophils (Manual) 88 % (40-80) H 12/16/16 18:45 Lymphocytes 11 % (20-50) L 12/16/16 18:45 Monocytes 1 % (2-10) L 12/16/16 18:45 Platelet Estimate ADEQUATE (NORMAL) 12/16/16 18:45 Platelet Morphology NORMAL (NORMAL) 12/16/16 18:45 Anisocytosis 1+ 12/16/16 18:45 RBC Morph Micro Appear ABNORMAL (NORMAL) 12/16/16 18:45 Sodium 150 mEq/L (136-145) H 12/16/16 18:45 Potassium 6.5 mEq/L (3.5-5.1) H* D 12/16/16 18:45 Chloride 115 mEq/L (98-107) H 12/16/16 18:45 Carbon Dioxide 22.1 mEq/L (21.0-31.0) 12/16/16 18:45 Anion Gap 19.4 (7.0-16.0) H 12/16/16 18:45 BUN 145 mg/dL (7-25) H* 12/16/16 18:45 Creatinine 2.6 mg/dL (0.6-1.2) H 12/16/16 18:45 Est GFR ( Amer) 23.8 ml/min (>90) 12/16/16 18:45 Est GFR (Non-Af Amer) 19.6 ml/min 12/16/16 18:45 BUN/Creatinine Ratio 55.8 12/16/16 18:45 Glucose 888 mg/dL (70-105) H* 12/16/16 18:45 POC Glucose 578 MG/DL (70 - 105) H* 12/16/16 21:13 Hemoglobin A1c % 7.1 % (4.0-6.0) H 12/16/16 18:45 Whole Bld Lactic Acid 3.95 mmol/L (0.60-1.99) H* 12/16/16 20:48 Calcium 10.3 mg/dL (8.6-10.3) 12/16/16 18:45 Total Bilirubin 0.3 mg/dL (0.3-1.0) 12/16/16 18:45 AST 11 U/L (13-39) L 12/16/16 18:45 ALT 48 U/L (7-52) 12/16/16 18:45 Alkaline Phosphatase 144 U/L (34-104) H 12/16/16 18:45 Total Protein 9.0 gm/dL (6.0-8.3) H 12/16/16 18:45 Albumin 3.7 gm/dL (3.7-5.3) 12/16/16 18:45 Globulin 5.3 gm/dL 12/16/16 18:45 Albumin/Globulin Ratio 0.7 (1.0-1.8) L 12/16/16 18:45 Urine Source [place] 12/16/16 18:40 Urine Color YELLOW 12/16/16 18:40 Urine Clarity HAZY (CLEAR) 12/16/16 18:40 Urine pH >=9.0 12/16/16 18:40 Ur Specific [place] 1.010 (1.005-1.030) 12/16/16 18:40 Urine Protein >300 mg/dL (NEGATIVE) H 12/16/16 18:40 Urine Glucose (UA) 250 mg/dL (NEGATIVE) H 12/16/16 18:40 Urine Ketones NEGATIVE mg/dL (NEGATIVE) 12/16/16 18:40 Urine Blood NEGATIVE (NEGATIVE) 12/16/16 18:40 Urine Nitrate POSITIVE (NEGATIVE) H 12/16/16 18:40 Urine Bilirubin NEGATIVE (NEGATIVE) 12/16/16 18:40 Urine Urobilinogen 0.2 E.U./dL (0.2 - 1.0) 12/16/16 18:40 Ur Leukocyte Esterase SMALL (NEGATIVE) H 12/16/16 18:40 Urine RBC 0-2 /hpf (0-5) 12/16/16 18:40 Urine WBC 50-100 /hpf (0-5) H 12/16/16 18:40 Ur Epithelial Cells FEW /lpf (FEW) 12/16/16 18:40 Triple Phos Crystals FEW /hpf (FEW) 12/16/16 18:40 Urine Bacteria MANY /hpf (NONE SEEN) 12/16/16 18:40 Laboratory Results - last 24 hr 12/16/16 12/16/16 20:48 21:13 POC Glucose 578 H* Whole Bld Lactic Acid 3.95 H* - Assessment Assessment: acute renal failure severe sepsis pnm fever sad decub ulcer sp peg fuctional quad bedridden anemia leukocytosis lactic acidosis dmooc - Plan Plan: cont on iv abx agressive iv hydration will check blood cx will order renal us will refer to renal, dr handy critical care ada iss joao rn
[2016-12-16] MEDS: Pantoprazole 40 mg/Packet GT SCH (21:35)
[2016-12-16] MEDS: Lactobacillus Rhamnosus 10 Billion CFU Capsule GT SCH (21:35)
[2016-12-17] MEDS: Albuterol/Ipratropium Neb 3 ML AERS HHN SCH ×5 (00:48→23:59)
[2016-12-17] MEDS: INSULIN ASPART, RECOMBINANT 100 UNITS/ML SUBQ SCH ×3 (06:40→17:53)
[2016-12-17 07:17] LABS: ALB/GLOB RATIO 0.7 (1.0-1.8); BILIRUBIN,TOTAL 0.2 mg/dL (0.3-1.0); BUN/CREATININE RATIO 47.6; CALCIUM SERUM 9.3 mg/dL (8.6-10.3); CARBON DIOXIDE 18.9 mEq/L (21.0-31.0); CREATININE - SERUM 2.9 mg/dL (0.6-1.2); MAGNESIUM 2.9 mg/dL (1.9-2.7); POTASSIUM SERUM 4.9 mEq/L (3.5-5.1)
[2016-12-17 07:34] LABS: MEAN CELL VOLUME 90.8 fl (81-100); MEAN CORPUSCULAR HEMOGLOBIN 29.4 pg (27.0-31.0); MEAN CORPUSCULAR HGB CONC 32.4 pg (28.0-36.0); MEAN PLATELET VOLUME 12.6 fl; RED BLOOD COUNT 2.29 Mil/cmm (3.80-5.20); RED CELL DISTRIBUTION WIDTH 19.1 % (11.5-20.0)
[2016-12-17 07:43] LABS: HEMATOCRIT 20.8 % (35.0-45.0); WHITE BLOOD COUNT 26.8 Th/cmm (4.8-10.8)
[2016-12-17 07:44] LABS: PLATELET COUNT 304 Th/cmm (150-400)
[2016-12-17 07:54] LABS: TSH 1.38 uIU/ml (0.34-5.60)
[2016-12-17 08:28] LABS: BAND NEUTROPHILE 2 % (0-10); NEUTROPHILS 90 % (40-80); PLATELET ESTIMATE ADEQUATE (NORMAL); POLYCHROMASIA 1+; TOTAL CELLS COUNTED 100
--- NOTE | 2016-12-17 08:31 | Diagnostic Imaging Report ---
Exam: Portable examination of chest supine. HISTORY: Fever sepsis. Findings:. Portable supine examination of the chest at 1901 hours reviewed, compared to prior examination of 09/17/2016. The study demonstrates mild atelectatic changes in the bases. The aortic arch calcified. No acute pulmonic infiltrates or effusions are noted. Bony thorax remarkable for degenerative changes. IMPRESSION: mild basilar atelectasis no active disease.
[2016-12-17 08:37] LABS: HEMOGLOBIN 6.7 gm/dL (11.7-16.1)
[2016-12-17] MEDS ORDERED: Multivitamin w/ Minerals 15 mL UDC GT SCH (09:00)
[2016-12-17] MEDS ORDERED: Non-Formulary Item 1 EA (Cran/Vitc/Mannose/Fos/Bromeln [Uti-Stat Liquid] 30 ML) GT SCH (09:00)
--- NOTE | 2016-12-17 11:13 | ED Physician Chart ---
Chief Complaint/HPI - Patient Information Date Seen:: 12/16/16 Time Seen:: 17:00 Chief Complaint:: INTERMITTANT FEVERS TODAY History of Present Illness:: This 66 year-old female was brought to the ED by EMS from her nursing facility for evaluation of fever. The patient was compleely non-verbal and unable to provide any history. She does not follow simple commands. She does withdraw to pain in both upper Extremities. No withdrawal to pain in either lower extremity. Paperwork which accompanied the patient stated that she has a diagnosis of diabetes, chronic DVT, asthma, pressure ulcerations in the region of the buttocks, osteoporosis, gastrostomy tube, recurrent UTI and hypotension. Pt Resuscitation status DNR. Allergies:: Allergies Allergy/AdvReac Type Severity Reaction Status Date / Time Penicillins [PCN] Allergy Verified 04/17/16 14:17 Review of Systems - Review of Systems General/Constitutional: Other ( The patient is unable to respond to questions regarding review of systems.) Past Medical History - Past Medical History Past Medical History: DM, DVT/PE, Dementia, Other ( Recurrent UTIs.) Social History: Care Facility Psychiatricy History: Schizophrenia Family Medical History - Family Member Maternal History Unknown: Yes Ethnicity: Unknown Living Status: Hx Family Cancer: No Hx Family Coronary Artery Disease: No Hx Family Congestive Heart Failure: No Hx Family Hypertension: No Hx Family Stroke: No Hx Family Diabetes: No Hx Family Seizures: No Hx Family Dementia: No Hx Family AIDS: No Hx Family HIV: No Hx Family COPD: No Hx Family Hepatitis: No Hx Family Psychiatric Problems: No Hx Family Tuberculosis: No Physical Exam - Physical Examination General/Constitutional: Awake Other Gen/Cons comments:: This 66-year-old female appears to be chronically ill and severely disabled. She is nonverbal and does not follow simple commands such as " open your mouth, squeeze my fingers, and open your eyes. She does not respond to " tell me your name." Head: Atraumatic ( There is no visible or palpable evidence of recent head,. The patient has alopecia.) Other Eyes comments:: Her pupils were near equal and respond to light. Sclera non-enteric. the eyes are sunken and suggestive of dehydration. Patient has crusty discharge on the eyelashes of both eyes. Skin: No rash Other Skin comments:: the patient has tenting of the skin over the abdomen. The skin is dry and very warm to the touch. Other ENMT comments:: The patient has extreme mucosal dryness in the mouth with extensive inspicated secretions including the tongue and oral mucosa. Gag reflex is intact. Neck: No bruit, No mass Other Neck comments:: There is marked nuchal rigidity to both AP flexion and lateral rotation. No cervical lymphadenopathy or masses. No thyromegaly. No JVD. Other Respiratory comments:: The patient is typnic. Breath sounds are clear to anterior auscultation. No wheezing, rales or rhonchi noted. Other Cardio Vascular comments:: Regular tachycardia in the 120 range. No murmurs or gallops noted. The patient has adequate peripheral pulses in both the upper and lower extremities. No peripheral edema. GI: No tenderness/rebounding/guarding, No organomegaly, Nondistended, No mass/ bruits, No McBurney tenderness (G-Tube in the left upper quad. reducible umbilical hernia.) Extremities: No tenderness or effusion Other Extremities comments:: unable to test strength. Pt has withdrawl to pain in both upper extremitis. NO withdrawl to pain in lower extremities. NO peripheral edema. Muscle contractures in both upper and lower extremities. Other Neuro/Psych comments:: Totally unresponsive and non-verbal. Some movement in the upper extremities. NO movement in lower extremities. Other Misc comments:: Back exam was deferred do to priority of nursing procedures such as starting IV' s and starting rehydration with normal saline and starting IV antibiotics ( Ceftriaxone). Also placing BP Cuff and pulse ox and cardiac monitoring. Labs/Radiology/EKG Results - Lab Results Results: Laboratory Tests 12/16/16 12/16/16 12/16/16 18:40 18:45 18:45 WBC 28.4 H* D RBC 2.80 L Hgb 8.0 L Hct 25.1 L MCV 89.7 MCH 28.4 MCHC Differential 31.7 RDW 19.3 Plt Count 390 D MPV 12.2 Neutrophils (Manual) 88 H Lymphocytes 11 L Monocytes 1 L Platelet Estimate ADEQUATE Platelet Morphology NORMAL Anisocytosis 1+ RBC Morph Micro Appear ABNORMAL Sodium 150 H Potassium 6.5 H* D Chloride 115 H Carbon Dioxide 22.1 Anion Gap 19.4 H BUN 145 H* Creatinine 2.6 H Est GFR ( Amer) 23.8 Est GFR (Non-Af Amer) 19.6 BUN/Creatinine Ratio 55.8 Glucose 888 H* Hemoglobin A1c % Whole Bld Lactic Acid Calcium 10.3 Total Bilirubin 0.3 AST 11 L ALT 48 Alkaline Phosphatase 144 H Total Protein 9.0 H Albumin 3.7 Globulin 5.3 Albumin/Globulin Ratio 0.7 L Urine Source [place] Urine Color YELLOW Urine Clarity HAZY Urine pH >=9.0 Ur Specific [place] 1.010 Urine Protein >300 H Urine Glucose (UA) 250 H Urine Ketones NEGATIVE Urine Blood NEGATIVE Urine Nitrate POSITIVE H Urine Bilirubin NEGATIVE Urine Urobilinogen 0.2 Ur Leukocyte Esterase SMALL H Urine RBC 0-2 Urine WBC 50-100 H Ur Epithelial Cells FEW Triple Phos Crystals FEW Urine Bacteria MANY 12/16/16 12/16/16 18:45 18:45 WBC RBC Hgb Hct MCV MCH MCHC Differential RDW Plt Count MPV Neutrophils (Manual) Lymphocytes Monocytes Platelet Estimate Platelet Morphology Anisocytosis RBC Morph Micro Appear Sodium Potassium Chloride Carbon Dioxide Anion Gap BUN Creatinine Est GFR ( Amer) Est GFR (Non-Af Amer) BUN/Creatinine Ratio Glucose Hemoglobin A1c % 7.1 H Whole Bld Lactic Acid 3.81 H* Calcium Total Bilirubin AST ALT Alkaline Phosphatase Total Protein Albumin Globulin Albumin/Globulin Ratio Urine Source Urine Color Urine Clarity Urine pH Ur Specific [place] Urine Protein Urine Glucose (UA) Urine Ketones Urine Blood Urine Nitrate Urine Bilirubin Urine Urobilinogen Ur Leukocyte Esterase Urine RBC Urine WBC Ur Epithelial Cells Triple Phos Crystals Urine Bacteria CBC with marked leukocytosis consistent with acute sepsis. Marked anemia with HBG in the 8 range. Marked hypernatremia and hyperkalemis consistant with severe dehydration and renal impairment. Marked hyperglycemia in the high 800 range. elevated lactic acid consistent with severe sepsis. Severe hyperglycemia consistant with diabetes out of control. UA consistent with acute UTI. CXR: Single view PA. NO Cardiomegaly or CHF. NO areas of pulmonary infiltrate or consolidation. NO evidence of acute pneumonia. Assessment - Assessment General Assessment: CASE SUMMARY: This 66 year old female was sent to the ED from her nursing facility for evaluation of fever. On physical exam and with the lab results the patient is severely dehydrated and in Uro-sepsis. In the ED IV's were started and 2 liters of NS administered prior to admission. The patient also received 2 grams of ceftriaxone for TX of UTI Sepsis. The pt was admitted to DR. Jackson's service. MDM DDX FEVER: NOT Pneumonia based on exam and CXR. NOT cellulitis based on exam. NOT meningitis based on alternate confirmed diagnosis of UTI. CRITICAL CARE: 90 MINUTES EXCLUSIVE OF ANY PROCEDURES. TREATMENT OF SEVERE SEPSIS AND DEHYDRATION WITH IV NORMAL SALINE AND CEFTRIAXONE. ED Septic Shock - . Is Septic Shock (SBP<90, OR Lactate>4 mmol\\L) present?: No - <6hrs of presentation: Vital Signs: NO SEPSIS [id number] IN ORDER TO SIGN OUT CHART Skin Exam: Warm, Poor Turgor, Pallor, No Mottling Reassessment (Disposition) - Reassessment Reassessment Condition:: Improved - Diagnosis Diagnosis:: SEVERE DEHYDRATION, URO-SEPSIS, CRITICAL HYPERNATREMIA AND HYPERKALEMIA, SEVERE HYPERGLYCEMIA, SEVERE ANEMIA ED Discharge Plan - Patient Disposition Admit/Discharge/Transfer: Acute Care w/in this hosp
[2016-12-17] MEDS: Ascorbic Acid 500 mg/5 mL UDC GT SCH (12:55)
[2016-12-17] MEDS: Lactobacillus Rhamnosus 10 Billion CFU Capsule GT SCH ×2 (12:55→21:01)
[2016-12-17] MEDS ORDERED: Probiotic Screen MC PRN (15:44)
--- NOTE | 2016-12-17 16:47 | Internal Medicine Prog Note ---
Internal Medicine Subjective - Subjective Patient seen and examined:: with staff, chart reviewed Patient is:: awake, non-verbal, non-interactive, arousable, in bed, talking, denies any new complaints, agitated, confused Patient Complaints of:: congestion, cough, bloated, SOB Per staff patient has:: no adverse event, no episodes of fall, noncompliant, tolerating meds, refusing care, refusing labs Internal Medicine Objective - Results Result Diagrams: 12/17/16 06:36 12/17/16 06:36 Recent Labs: Laboratory Last Values WBC 26.8 Th/cmm (4.8-10.8) H* 12/17/16 06:36 RBC 2.29 Mil/cmm (3.80-5.20) L 12/17/16 06:36 Hgb 6.7 gm/dL (11.7-16.1) L* D 12/17/16 06:36 Hct 20.8 % (35.0-45.0) L* D 12/17/16 06:36 MCV 90.8 fl (81-100) 12/17/16 06:36 MCH 29.4 pg (27.0-31.0) 12/17/16 06:36 MCHC Differential 32.4 pg (28.0-36.0) 12/17/16 06:36 RDW 19.1 % (11.5-20.0) 12/17/16 06:36 Plt Count 304 Th/cmm (150-400) D 12/17/16 06:36 MPV 12.6 fl 12/17/16 06:36 Band Neutrophils % 2 % (0-10) 12/17/16 06:36 Neutrophils (Manual) 90 % (40-80) H 12/17/16 06:36 Lymphocytes 8 % (20-50) L 12/17/16 06:36 Monocytes 1 % (2-10) L 12/16/16 18:45 Platelet Estimate ADEQUATE (NORMAL) 12/17/16 06:36 Platelet Morphology NORMAL (NORMAL) 12/16/16 18:45 Polychromasia 1+ 12/17/16 06:36 Anisocytosis 1+ 12/16/16 18:45 RBC Morph Micro Appear ABNORMAL (NORMAL) 12/16/16 18:45 Sodium 160 mEq/L (136-145) H* 12/17/16 06:36 Potassium 4.9 mEq/L (3.5-5.1) 12/17/16 06:36 Chloride 129 mEq/L (98-107) H 12/17/16 06:36 Carbon Dioxide 18.9 mEq/L (21.0-31.0) L 12/17/16 06:36 Anion Gap 17.0 (7.0-16.0) H 12/17/16 06:36 BUN 138 mg/dL (7-25) H* 12/17/16 06:36 Creatinine 2.9 mg/dL (0.6-1.2) H 12/17/16 06:36 Est GFR ( Amer) 20.9 ml/min (>90) 12/17/16 06:36 Est GFR (Non-Af Amer) 17.3 ml/min 12/17/16 06:36 BUN/Creatinine Ratio 47.6 12/17/16 06:36 Glucose 550 mg/dL (70-105) H* 12/17/16 06:36 POC Glucose 437 MG/DL (70 - 105) H 12/17/16 13:20 Hemoglobin A1c % 7.1 % (4.0-6.0) H 12/16/16 18:45 Whole Bld Lactic Acid 3.95 mmol/L (0.60-1.99) H* 12/16/16 20:48 Calcium 9.3 mg/dL (8.6-10.3) 12/17/16 06:36 Magnesium 2.9 mg/dL (1.9-2.7) H 12/17/16 06:36 Total Bilirubin 0.2 mg/dL (0.3-1.0) L 12/17/16 06:36 AST 15 U/L (13-39) 12/17/16 06:36 ALT 36 U/L (7-52) 12/17/16 06:36 Alkaline Phosphatase 111 U/L (34-104) H 12/17/16 06:36 Ammonia 43 umol/L (16-53) 12/17/16 06:36 B-Natriuretic Peptide 385.0 pg/mL (5.0-100.0) H 12/17/16 06:36 Total Protein 7.5 gm/dL (6.0-8.3) 12/17/16 06:36 Albumin 3.2 gm/dL (3.7-5.3) L 12/17/16 06:36 Globulin 4.3 gm/dL 12/17/16 06:36 Albumin/Globulin Ratio 0.7 (1.0-1.8) L 12/17/16 06:36 TSH 1.38 uIU/ml (0.34-5.60) 12/17/16 06:36 Urine Source [place] 12/16/16 18:40 Urine Color YELLOW 12/16/16 18:40 Urine Clarity HAZY (CLEAR) 12/16/16 18:40 Urine pH >=9.0 12/16/16 18:40 Ur Specific [place] 1.010 (1.005-1.030) 12/16/16 18:40 Urine Protein >300 mg/dL (NEGATIVE) H 12/16/16 18:40 Urine Glucose (UA) 250 mg/dL (NEGATIVE) H 12/16/16 18:40 Urine Ketones NEGATIVE mg/dL (NEGATIVE) 12/16/16 18:40 Urine Blood NEGATIVE (NEGATIVE) 12/16/16 18:40 Urine Nitrate POSITIVE (NEGATIVE) H 12/16/16 18:40 Urine Bilirubin NEGATIVE (NEGATIVE) 12/16/16 18:40 Urine Urobilinogen 0.2 E.U./dL (0.2 - 1.0) 12/16/16 18:40 Ur Leukocyte Esterase SMALL (NEGATIVE) H 12/16/16 18:40 Urine RBC 0-2 /hpf (0-5) 12/16/16 18:40 Urine WBC 50-100 /hpf (0-5) H 12/16/16 18:40 Ur Epithelial Cells FEW /lpf (FEW) 12/16/16 18:40 Triple Phos Crystals FEW /hpf (FEW) 12/16/16 18:40 Urine Bacteria MANY /hpf (NONE SEEN) 12/16/16 18:40 Random Vancomycin 17.3 ug/mL (5.0-40.0) 12/17/16 16:13 Blood Type A POSITIVE 12/17/16 09:45 Antibody Screen NEGATIVE 12/17/16 09:45 Crossmatch See Detail 12/17/16 09:45 - Physical Exam Vitals and I&O: Vital Signs Temp 99.9 F 12/17/16 04:00 Pulse 112 12/17/16 12:20 Resp 27 12/17/16 12:20 BP 95/54 12/17/16 04:00 Pulse Ox 96 12/17/16 12:20 Intake & Output 12/16/16 12/17/16 12/17/16 18:59 06:59 18:59 Intake Total 1050 Output Total 302 Balance 748 Weight (lbs) 61.598 kg Intake: Intake, IV Amount 250 Vancomycin HCl 1 gm In 250 Sodium Chloride 0.9% 250 ml @ 166.667 mls/hr IV Q24H REPLACED BY [facility] Rx#:[id number] Tube Feeding 500 Other 300 Output: Urine 300 Stool 2 Other: Stool Characteristics Formed Formed Active Medications: Current Medications Acetaminophen (Tylenol 650mg/20.3ml Suspension) 650 mg GT Q6HR PRN PRN Reason: Pain or Fever >101 Stop: 02/14/17 21:15 Last Admin: 12/16/16 23:38 Dose: 650 mg Acetaminophen/Hydrocodone Bitart ([place] 5mg/325mg) 1 tab GT Q4H PRN PRN Reason: Pain (Severe) Stop: 02/14/17 21:15 Albuterol Sulfate (Albuterol 2.5mg/3ml Neb Ud) 2.5 mg HHN Q2HRT PRN PRN Reason: Shortness of Breath or Wheeze Stop: 02/14/17 21:19 Albuterol/Ipratropium (Duoneb Neb) 3 ml HHN Q6HRT REPLACED BY [facility] Stop: 02/15/17 00:59 Last Admin: 12/17/16 12:17 Dose: 3 ml Ascorbic Acid (Vitamin C) 500 mg GT DAILY REPLACED BY [facility] Stop: 02/15/17 08:59 Last Admin: 12/17/16 12:55 Dose: 500 mg Bisacodyl (Dulcolax 10 Mg Supp) 10 mg RC DAILY PRN PRN Reason: IF MOM INEFFECTIVE Stop: 02/14/17 21:15 Clonidine HCl (Catapres) 0.1 mg PO Q6H PRN PRN Reason: SBP GREATER THAN 160 Stop: 02/14/17 21:19 Guaifenesin (Robitussin) 200 mg PO Q4HR PRN PRN Reason: Cough or Congestion Stop: 02/14/17 21:19 Heparin Sodium (Porcine) (Heparin) 5,000 units SUBQ Q12HR REPLACED BY [facility] Stop: 02/15/17 08:59 Last Admin: 12/17/16 12:55 Dose: 5,000 units Sodium Chloride (Nacl 0.9%) 1,000 mls @ 100 mls/hr IV .Q10H REPLACED BY [facility] Stop: 02/14/17 21:29 Last Admin: 12/16/16 21:37 Dose: 100 mls/hr Vancomycin HCl 1 gm/ Sodium (Chloride) 250 mls @ 166.667 mls/hr IV Q24H REPLACED BY [facility] Stop: 02/14/17 21:29 Last Infusion: 12/16/16 23:33 Dose: Infused Insulin Aspart (Novolog) 0 units SUBQ ACHS DC PRN Reason: Protocol Stop: 02/15/17 07:29 Last Admin: 12/17/16 13:23 Dose: 10 units Ipratropium [place] (Atrovent Neb 0.5mg/2.5ml) 0.5 mg IH Q2HRT PRN PRN Reason: Shortness of Breath or Wheeze Stop: 02/14/17 21:19 Lactobacillus Rhamnosus (Culturelle) 1 each GT Q12H REPLACED BY [facility] Stop: 02/14/17 21:29 Last Admin: 12/17/16 12:55 Dose: 1 each Loperamide HCl (Imodium 1mg/5ml Suspension) 2 mg GT Q4H PRN PRN Reason: Diarrhea Stop: 02/14/17 21:15 Lorazepam (Ativan) 0.5 mg GT Q6H PRN; Protocol PRN Reason: Anxiety Stop: 02/14/17 21:15 Miscellaneous (Cran/Vitc/Mannose/Fos/Bromeln [Uti-Stat Liquid]) 30 ml GT DAILY REPLACED BY [facility] Stop: 02/15/17 08:59 Miscellaneous (Probiotic Screen) 1 ea MC PRN PRN PRN Reason: PROTOCOL Stop: 02/15/17 15:43 Morphine Sulfate (Morphine) 2 mg IVP Q4H PRN PRN Reason: Pain (Severe) Stop: 02/14/17 21:24 Ondansetron HCl (Zofran) 4 mg IV Q8H PRN PRN Reason: Nausea / Vomiting Stop: 02/14/17 21:19 Last Admin: 12/17/16 12:53 Dose: 4 mg Pantoprazole Sodium (Protonix) 40 mg GT Q24H DC Stop: 02/14/17 21:29 Last Admin: 12/16/16 21:35 Dose: 40 mg General: lethargic, demented, disheveled, bilateral temporal wasting, cachectic , appears older HEENT: NC/AT Neck: Supple, No LAD Lungs: congested, rales, ronchi Cardiovascular: RRR, Normal S1, Normal S2, without murmur Abdomen: soft, non-tender, globular, +GT, positive bowel sound Extremities: excoriation, contracture, ulcers stage 4 Neurological: no change, lethargic, disorganized, unable to follow command, bedbound, spastic - Procedures Procedures: Procedures Procedure Code Date ASSISTANCE WITH RESPIRATORY VENTILATION, 24-96 HRS, CPAP [id number] 09/12/16 [place] [id number] 04/15/16 IMMUNIZATION ADMIN [id number] 04/15/16 INSERT PICC CATH [id number] 04/15/16 INSERTION OF INFUSION DEVICE INTO R ATRIUM, PERC APPROACH [id number] 04/15/16 INTRODUCTION OF SERUM/TOX/VACCINE INTO MUSCLE, PERC APPROACH [id number] 04/15/16 POS AIRWAY PRESSURE CPAP [id number] 09/12/16 Internal Medicine Assmt/Plan - Assessment Assessment: acute renal failure severe sepsis pnm fever sad decub ulcer sp peg fuctional quad bedridden anemia leukocytosis lactic acidosis dmooc - Plan Plan: cont on iv abx agressive iv hydration will check blood cx will order renal us will refer to renal, dr handy critical care ada iss joao rn
[2016-12-17] MEDS ORDERED: Sodium Chloride 0.45% 1,000 ML IV SCH (17:15)
[2016-12-17] MEDS ORDERED: Sodium Chloride 0.9% 500 ML IV ONE (19:59)
[2016-12-17] MEDS: Sodium Chloride 0.9% 1,000 ML IV ONE (20:27)
[2016-12-17] MEDS ORDERED: Sodium Chloride 0.45% 1,000 ML IV ONE (20:36)
[2016-12-17] MEDS: Pantoprazole 40 mg/Packet GT SCH (21:01)
[2016-12-17] MEDS: INSULIN ASPART SLIDING SCALE 100 UNITS/ML UNIT SUBQ SCH (21:14)
[2016-12-18 05:10] LABS: HEMATOCRIT 25.1 % (35.0-45.0); HEMOGLOBIN 8.1 gm/dL (11.7-16.1); MEAN CELL VOLUME 90.5 fl (81-100); MEAN CORPUSCULAR HEMOGLOBIN 29.3 pg (27.0-31.0); MEAN CORPUSCULAR HGB CONC 32.4 pg (28.0-36.0); MEAN PLATELET VOLUME 11.9 fl; PLATELET COUNT 220 Th/cmm (150-400); RED BLOOD COUNT 2.77 Mil/cmm (3.80-5.20); RED CELL DISTRIBUTION WIDTH 18.3 % (11.5-20.0)
[2016-12-18 05:22] LABS: ANION GAP 13.9 (7.0-16.0); BUN/CREATININE RATIO 50.4; CALCIUM SERUM 8.7 mg/dL (8.6-10.3); CARBON DIOXIDE 18.6 mEq/L (21.0-31.0); CREATININE - SERUM 2.4 mg/dL (0.6-1.2); MAGNESIUM 2.7 mg/dL (1.9-2.7); POTASSIUM SERUM 3.5 mEq/L (3.5-5.1)
[2016-12-18 06:35] LABS: BAND NEUTROPHILE 2 % (0-10); EOSINOPHIL 1 % (0-5); NEUTROPHILS 86 % (40-80); PLATELET ESTIMATE ADEQUATE (NORMAL); TOTAL CELLS COUNTED 100
[2016-12-18 06:36] LABS: ANISOCYTOSIS 1+; PLATELET MORPHOLOGY NORMAL (NORMAL)
[2016-12-18] MEDS: INSULIN HUMAN ISOPHANE (NPH) 100 UNITS/ML SUBQ SCH ×2 (06:44→17:14)
[2016-12-18] MEDS: INSULIN ASPART SLIDING SCALE 100 UNITS/ML UNIT SUBQ SCH ×4 (06:44→21:14)
[2016-12-18] MEDS: Sodium Chloride 0.45% 1,000 ML IV SCH ×2 (06:52)
[2016-12-18] MEDS: Albuterol/Ipratropium Neb 3 ML AERS HHN SCH ×3 (07:33→19:20)
[2016-12-18] MEDS: Ascorbic Acid 500 mg/5 mL UDC GT SCH (09:01)
[2016-12-18] MEDS: Lactobacillus Rhamnosus 10 Billion CFU Capsule GT SCH ×2 (09:01→20:53)
[2016-12-18] MEDS: Multivitamin w/ Minerals Tab GT SCH (09:01)
--- NOTE | 2016-12-18 09:54 | Diagnostic Imaging Report ---
Exam: Portable upright examination of chest. HISTORY: pain Portable examination of chest at 0756 hours reviewed no prior studies available comparison. Bony thorax unremarkable for degenerative changes. Mediastinal structures midline the heart is not enlarged costophrenic angles are clear. The aortic arch calcified. IMPRESSION: No acute disease.
[2016-12-18] MEDS ORDERED: Dextrose 5% 1,000 ML IV SCH ×2 (10:52→11:30)
--- NOTE | 2016-12-18 11:03 | General Progress Note ---
Subjective - Review of Systems Service Date: 12/18/16 Events since last encounter: continued hypernatremia more awake today blood pressure relativwely low Objective - Results Result Diagrams: 12/18/16 04:46 12/18/16 04:46 Recent Labs: Laboratory Last Values WBC 18.0 Th/cmm (4.8-10.8) H D 12/18/16 04:46 RBC 2.77 Mil/cmm (3.80-5.20) L 12/18/16 04:46 Hgb 8.1 gm/dL (11.7-16.1) L 12/18/16 04:46 Hct 25.1 % (35.0-45.0) L D 12/18/16 04:46 MCV 90.5 fl (81-100) 12/18/16 04:46 MCH 29.3 pg (27.0-31.0) 12/18/16 04:46 MCHC Differential 32.4 pg (28.0-36.0) 12/18/16 04:46 RDW 18.3 % (11.5-20.0) 12/18/16 04:46 Plt Count 220 Th/cmm (150-400) D 12/18/16 04:46 MPV 11.9 fl 12/18/16 04:46 Band Neutrophils % 2 % (0-10) 12/18/16 04:46 Neutrophils (Manual) 86 % (40-80) H 12/18/16 04:46 Lymphocytes 8 % (20-50) L 12/18/16 04:46 Monocytes 3 % (2-10) 12/18/16 04:46 Eosinophils 1 % (0-5) 12/18/16 04:46 Platelet Estimate ADEQUATE (NORMAL) 12/18/16 04:46 Platelet Morphology NORMAL (NORMAL) 12/18/16 04:46 Polychromasia 1+ 12/17/16 06:36 Anisocytosis 1+ 12/18/16 04:46 RBC Morph Micro Appear ABNORMAL (NORMAL) 12/18/16 04:46 Sodium 164 mEq/L (136-145) H* 12/18/16 04:46 Potassium 3.5 mEq/L (3.5-5.1) 12/18/16 04:46 Chloride 135 mEq/L (98-107) H 12/18/16 04:46 Carbon Dioxide 18.6 mEq/L (21.0-31.0) L 12/18/16 04:46 Anion Gap 13.9 (7.0-16.0) 12/18/16 04:46 BUN 121 mg/dL (7-25) H* 12/18/16 04:46 Creatinine 2.4 mg/dL (0.6-1.2) H 12/18/16 04:46 Est GFR ( Amer) 26.1 ml/min (>90) 12/18/16 04:46 Est GFR (Non-Af Amer) 21.5 ml/min 12/18/16 04:46 BUN/Creatinine Ratio 50.4 12/18/16 04:46 Glucose 326 mg/dL (70-105) H 12/18/16 04:46 POC Glucose 333 MG/DL (70 - 105) H 12/17/16 21:11 Hemoglobin A1c % 7.1 % (4.0-6.0) H 12/16/16 18:45 Whole Bld Lactic Acid 3.95 mmol/L (0.60-1.99) H* 12/16/16 20:48 Calcium 8.7 mg/dL (8.6-10.3) 12/18/16 04:46 Magnesium 2.7 mg/dL (1.9-2.7) 12/18/16 04:46 Total Bilirubin 0.2 mg/dL (0.3-1.0) L 12/17/16 06:36 AST 15 U/L (13-39) 12/17/16 06:36 ALT 36 U/L (7-52) 12/17/16 06:36 Alkaline Phosphatase 111 U/L (34-104) H 12/17/16 06:36 Ammonia 43 umol/L (16-53) 12/17/16 06:36 B-Natriuretic Peptide 385.0 pg/mL (5.0-100.0) H 12/17/16 06:36 Total Protein 7.5 gm/dL (6.0-8.3) 12/17/16 06:36 Albumin 3.2 gm/dL (3.7-5.3) L 12/17/16 06:36 Globulin 4.3 gm/dL 12/17/16 06:36 Albumin/Globulin Ratio 0.7 (1.0-1.8) L 12/17/16 06:36 TSH 1.38 uIU/ml (0.34-5.60) 12/17/16 06:36 Urine Source [place] 12/16/16 18:40 Urine Color YELLOW 12/16/16 18:40 Urine Clarity HAZY (CLEAR) 12/16/16 18:40 Urine pH >=9.0 12/16/16 18:40 Ur Specific [place] 1.010 (1.005-1.030) 12/16/16 18:40 Urine Protein >300 mg/dL (NEGATIVE) H 12/16/16 18:40 Urine Glucose (UA) 250 mg/dL (NEGATIVE) H 12/16/16 18:40 Urine Ketones NEGATIVE mg/dL (NEGATIVE) 12/16/16 18:40 Urine Blood NEGATIVE (NEGATIVE) 12/16/16 18:40 Urine Nitrate POSITIVE (NEGATIVE) H 12/16/16 18:40 Urine Bilirubin NEGATIVE (NEGATIVE) 12/16/16 18:40 Urine Urobilinogen 0.2 E.U./dL (0.2 - 1.0) 12/16/16 18:40 Ur Leukocyte Esterase SMALL (NEGATIVE) H 12/16/16 18:40 Urine RBC 0-2 /hpf (0-5) 12/16/16 18:40 Urine WBC 50-100 /hpf (0-5) H 12/16/16 18:40 Ur Epithelial Cells FEW /lpf (FEW) 12/16/16 18:40 Triple Phos Crystals FEW /hpf (FEW) 12/16/16 18:40 Urine Bacteria MANY /hpf (NONE SEEN) 12/16/16 18:40 Random Vancomycin 17.3 ug/mL (5.0-40.0) 12/17/16 16:13 Blood Type A POSITIVE 12/17/16 09:45 Antibody Screen NEGATIVE 12/17/16 09:45 Crossmatch See Detail 12/17/16 09:45 - Physical Exam Vitals and I&O: Vital Signs Temp 99.0 F 12/18/16 04:00 Pulse 98 12/18/16 07:39 Resp 25 12/18/16 07:39 BP 89/33 12/18/16 06:58 Pulse Ox 96 12/18/16 07:39 Intake & Output 0712/18/16 12/18/16 18:59 06:59 18:59 Intake Total 850 2050 Output Total 500 602 Balance 350 1448 Weight (lbs) 61.598 kg 64.013 kg Intake: Intake, IV Amount 1250 Sodium Chloride 0.45% 1, 1000 000 ml @ 150 mls/hr IV . Q6H40M [facility] Rx#:[id number] Vancomycin HCl 1 gm In 250 Sodium Chloride 0.9% 250 ml @ 166.667 mls/hr IV Q24H [facility] Rx#:[id number] Oral 0 Tube Feeding 600 600 Blood Product 250 Other 200 Output: Urine 500 600 Stool 2 Other: # Bowel Movements 3 Stool Characteristics Soft Soft Brown Brown Active Medications: Current Medications Acetaminophen (Tylenol 650mg/20.3ml Suspension) 650 mg GT Q6HR PRN PRN Reason: Pain or Fever >101 Stop: 02/14/17 21:15 Last Admin: 12/18/16 09:08 Dose: 650 mg Acetaminophen/Hydrocodone Bitart ([place] 5mg/325mg) 1 tab GT Q4H PRN PRN Reason: Pain (Severe) Stop: 02/14/17 21:15 Albuterol Sulfate (Albuterol 2.5mg/3ml Neb Ud) 2.5 mg HHN Q2HRT PRN PRN Reason: Shortness of Breath or Wheeze Stop: 02/14/17 21:19 Albuterol/Ipratropium (Duoneb Neb) 3 ml HHN Q6HRT [facility] Stop: 02/15/17 00:59 Last Admin: 12/18/16 07:33 Dose: 3 ml Ascorbic Acid (Vitamin C) 500 mg GT DAILY [facility] Stop: 02/15/17 08:59 Last Admin: 12/18/16 09:01 Dose: 500 mg Bisacodyl (Dulcolax 10 Mg Supp) 10 mg RC DAILY PRN PRN Reason: IF MOM INEFFECTIVE Stop: 02/14/17 21:15 Clonidine HCl (Catapres) 0.1 mg PO Q6H PRN PRN Reason: SBP GREATER THAN 160 Stop: 02/14/17 21:19 Guaifenesin (Robitussin) 200 mg PO Q4HR PRN PRN Reason: Cough or Congestion Stop: 02/14/17 21:19 Vancomycin HCl 1 gm/ Sodium (Chloride) 250 mls @ 166.667 mls/hr IV Q24H [facility] Stop: 02/14/17 21:29 Last Infusion: 12/17/16 22:30 Dose: Infused Dextrose (D5w) 1,000 mls @ 150 mls/hr IV .Q6H40M [facility] Stop: 02/15/17 20:29 Insulin Aspart (Novolog Insulin Sliding Scale) 0 units SUBQ ACHS DC PRN Reason: Protocol Stop: 02/15/17 20:59 Last Admin: 12/18/16 06:44 Dose: 8 units Insulin Human NPH (Novolin N) 20 units SUBQ BIDAC DC PRN Reason: Protocol Stop: 02/16/17 07:29 Last Admin: 12/18/16 06:44 Dose: 20 units Ipratropium Pep (Atrovent Neb 0.5mg/2.5ml) 0.5 mg IH Q2HRT PRN PRN Reason: Shortness of Breath or Wheeze Stop: 02/14/17 21:19 Lactobacillus Rhamnosus (Culturelle) 1 each GT Q12H [facility] Stop: 02/14/17 21:29 Last Admin: 12/18/16 09:01 Dose: 1 each Loperamide HCl (Imodium 1mg/5ml Suspension) 2 mg GT Q4H PRN PRN Reason: Diarrhea Stop: 02/14/17 21:15 Lorazepam (Ativan) 0.5 mg GT Q6H PRN; Protocol PRN Reason: Anxiety Stop: 02/14/17 21:15 Miscellaneous (Probiotic Screen) 1 ea MC PRN PRN PRN Reason: PROTOCOL Stop: 02/15/17 15:43 Morphine Sulfate (Morphine) 2 mg IVP Q4H PRN PRN Reason: Pain (Severe) Stop: 02/14/17 21:24 Ondansetron HCl (Zofran) 4 mg IV Q8H PRN PRN Reason: Nausea / Vomiting Stop: 02/14/17 21:19 Last Admin: 12/17/16 12:53 Dose: 4 mg Pantoprazole Sodium (Protonix) 40 mg GT Q24H [facility] Stop: 02/14/17 21:29 Last Admin: 12/17/16 21:01 Dose: 40 mg General: Alert, No acute distress HEENT: PERRLA Neck: Supple Cardiovascular: Regular rate Lungs: Clear to auscultation Abdomen: Bowel sounds (normal), Soft Extremities: Edema (none) - Procedures Procedures: Procedures Procedure Code Date ASSISTANCE WITH RESPIRATORY VENTILATION, 24-96 HRS, CPAP [id number] 09/12/16 BLOOD TRANSFUSION SERVICE 15471 12/16/16 [place] [address] 04/15/16 IMMUNIZATION ADMIN 28232 04/15/16 INSERT PICC CATH 58422 04/15/16 INSERTION OF INFUSION DEVICE INTO R ATRIUM, PERC APPROACH [id number] 04/15/16 INTRODUCTION OF SERUM/TOX/VACCINE INTO MUSCLE, PERC APPROACH [id number] 04/15/16 POS AIRWAY PRESSURE CPAP 07707 09/12/16 TRANSFUSE NONAUT RED BLOOD CELLS IN PERIPH VEIN, PERC 29953F5 12/16/16 Assessment/Plan - Problem List Patient Problems: All Active Problems FEVER WITH ELEVATED WBC, BUN (Acute) Hyperosmolality and hypernatremia (Acute) E87.0 Weakness (Acute) azotemia better (Acute) - Assessment Assessment: continue hypernatremis likely from continue fluid loss awith patient having significant diaarhea azotemia better sepsis on antiviotic coverage - Plan Plan: will change fluid to d5w and just cover glucose with higher dose of insulin glucoscan coverage diarrhea will check c diff plus change feed to glucerna less hyperosmotic hopefully tolerate with less diarrhea
--- NOTE | 2016-12-18 12:07 | Internal Medicine Prog Note ---
Internal Medicine Subjective - Subjective Service Date: 12/18/16 Patient is:: awake, non-verbal, non-interactive, arousable, in bed, talking, denies any new complaints, agitated, confused Patient Complaints of:: congestion, cough, bloated, SOB Per staff patient has:: no adverse event, no episodes of fall, noncompliant, tolerating meds, refusing care, refusing labs Internal Medicine Objective - Results Result Diagrams: 12/18/16 04:46 12/18/16 04:46 Recent Labs: Laboratory Last Values WBC 18.0 Th/cmm (4.8-10.8) H D 12/18/16 04:46 RBC 2.77 Mil/cmm (3.80-5.20) L 12/18/16 04:46 Hgb 8.1 gm/dL (11.7-16.1) L 12/18/16 04:46 Hct 25.1 % (35.0-45.0) L D 12/18/16 04:46 MCV 90.5 fl (81-100) 12/18/16 04:46 MCH 29.3 pg (27.0-31.0) 12/18/16 04:46 MCHC Differential 32.4 pg (28.0-36.0) 12/18/16 04:46 RDW 18.3 % (11.5-20.0) 12/18/16 04:46 Plt Count 220 Th/cmm (150-400) D 12/18/16 04:46 MPV 11.9 fl 12/18/16 04:46 Band Neutrophils % 2 % (0-10) 12/18/16 04:46 Neutrophils (Manual) 86 % (40-80) H 12/18/16 04:46 Lymphocytes 8 % (20-50) L 12/18/16 04:46 Monocytes 3 % (2-10) 12/18/16 04:46 Eosinophils 1 % (0-5) 12/18/16 04:46 Platelet Estimate ADEQUATE (NORMAL) 12/18/16 04:46 Platelet Morphology NORMAL (NORMAL) 12/18/16 04:46 Polychromasia 1+ 12/17/16 06:36 Anisocytosis 1+ 12/18/16 04:46 RBC Morph Micro Appear ABNORMAL (NORMAL) 12/18/16 04:46 Sodium 164 mEq/L (136-145) H* 12/18/16 04:46 Potassium 3.5 mEq/L (3.5-5.1) 12/18/16 04:46 Chloride 135 mEq/L (98-107) H 12/18/16 04:46 Carbon Dioxide 18.6 mEq/L (21.0-31.0) L 12/18/16 04:46 Anion Gap 13.9 (7.0-16.0) 12/18/16 04:46 BUN 121 mg/dL (7-25) H* 12/18/16 04:46 Creatinine 2.4 mg/dL (0.6-1.2) H 12/18/16 04:46 Est GFR ( Amer) 26.1 ml/min (>90) 12/18/16 04:46 Est GFR (Non-Af Amer) 21.5 ml/min 12/18/16 04:46 BUN/Creatinine Ratio 50.4 12/18/16 04:46 Glucose 326 mg/dL (70-105) H 12/18/16 04:46 POC Glucose 265 MG/DL (70 - 105) H 12/18/16 11:58 Hemoglobin A1c % 7.1 % (4.0-6.0) H 12/16/16 18:45 Whole Bld Lactic Acid 3.95 mmol/L (0.60-1.99) H* 12/16/16 20:48 Calcium 8.7 mg/dL (8.6-10.3) 12/18/16 04:46 Magnesium 2.7 mg/dL (1.9-2.7) 12/18/16 04:46 Total Bilirubin 0.2 mg/dL (0.3-1.0) L 12/17/16 06:36 AST 15 U/L (13-39) 12/17/16 06:36 ALT 36 U/L (7-52) 12/17/16 06:36 Alkaline Phosphatase 111 U/L (34-104) H 12/17/16 06:36 Ammonia 43 umol/L (16-53) 12/17/16 06:36 B-Natriuretic Peptide 385.0 pg/mL (5.0-100.0) H 12/17/16 06:36 Total Protein 7.5 gm/dL (6.0-8.3) 12/17/16 06:36 Albumin 3.2 gm/dL (3.7-5.3) L 12/17/16 06:36 Globulin 4.3 gm/dL 12/17/16 06:36 Albumin/Globulin Ratio 0.7 (1.0-1.8) L 12/17/16 06:36 TSH 1.38 uIU/ml (0.34-5.60) 12/17/16 06:36 Urine Source [place] 12/16/16 18:40 Urine Color YELLOW 12/16/16 18:40 Urine Clarity HAZY (CLEAR) 12/16/16 18:40 Urine pH >=9.0 12/16/16 18:40 Ur Specific [place] 1.010 (1.005-1.030) 12/16/16 18:40 Urine Protein >300 mg/dL (NEGATIVE) H 12/16/16 18:40 Urine Glucose (UA) 250 mg/dL (NEGATIVE) H 12/16/16 18:40 Urine Ketones NEGATIVE mg/dL (NEGATIVE) 12/16/16 18:40 Urine Blood NEGATIVE (NEGATIVE) 12/16/16 18:40 Urine Nitrate POSITIVE (NEGATIVE) H 12/16/16 18:40 Urine Bilirubin NEGATIVE (NEGATIVE) 12/16/16 18:40 Urine Urobilinogen 0.2 E.U./dL (0.2 - 1.0) 12/16/16 18:40 Ur Leukocyte Esterase SMALL (NEGATIVE) H 12/16/16 18:40 Urine RBC 0-2 /hpf (0-5) 12/16/16 18:40 Urine WBC 50-100 /hpf (0-5) H 12/16/16 18:40 Ur Epithelial Cells FEW /lpf (FEW) 12/16/16 18:40 Triple Phos Crystals FEW /hpf (FEW) 12/16/16 18:40 Urine Bacteria MANY /hpf (NONE SEEN) 12/16/16 18:40 Random Vancomycin 17.3 ug/mL (5.0-40.0) 12/17/16 16:13 Blood Type A POSITIVE 12/17/16 09:45 Antibody Screen NEGATIVE 12/17/16 09:45 Crossmatch See Detail 12/17/16 09:45 - Physical Exam Vitals and I&O: Vital Signs Temp 99.2 F 12/18/16 08:00 Pulse 94 12/18/16 11:00 Resp 25 12/18/16 11:00 BP 95/43 12/18/16 11:00 Pulse Ox 96 12/18/16 11:00 Intake & Output 12/17/16 12/18/16 12/18/16 18:59 06:59 18:59 Intake Total 850 2050 Output Total 500 602 Balance 350 1448 Weight (lbs) 135 lb 12.8 oz 141 lb 2 oz Intake: Intake, IV Amount 1250 Sodium Chloride 0.45% 1, 1000 000 ml @ 150 mls/hr IV . Q6H40M [facility] Rx#:[id number] Vancomycin HCl 1 gm In 250 Sodium Chloride 0.9% 250 ml @ 166.667 mls/hr IV Q24H [facility] Rx#:[id number] Oral 0 Tube Feeding 600 600 Blood Product 250 Other 200 Output: Urine 500 600 Stool 2 Other: # Bowel Movements 3 Stool Characteristics Soft Soft Liquid Brown Brown Brown Active Medications: Current Medications Acetaminophen (Tylenol 650mg/20.3ml Suspension) 650 mg GT Q6HR PRN PRN Reason: Pain or Fever >101 Stop: 02/14/17 21:15 Last Admin: 12/18/16 09:08 Dose: 650 mg Acetaminophen/Hydrocodone Bitart ([place] 5mg/325mg) 1 tab GT Q4H PRN PRN Reason: Pain (Severe) Stop: 02/14/17 21:15 Albuterol Sulfate (Albuterol 2.5mg/3ml Neb Ud) 2.5 mg HHN Q2HRT PRN PRN Reason: Shortness of Breath or Wheeze Stop: 02/14/17 21:19 Albuterol/Ipratropium (Duoneb Neb) 3 ml HHN Q6HRT [facility] Stop: 02/15/17 00:59 Last Admin: 12/18/16 07:33 Dose: 3 ml Ascorbic Acid (Vitamin C) 500 mg GT DAILY [facility] Stop: 02/15/17 08:59 Last Admin: 12/18/16 09:01 Dose: 500 mg Bisacodyl (Dulcolax 10 Mg Supp) 10 mg RC DAILY PRN PRN Reason: IF MOM INEFFECTIVE Stop: 02/14/17 21:15 Clonidine HCl (Catapres) 0.1 mg PO Q6H PRN PRN Reason: SBP GREATER THAN 160 Stop: 02/14/17 21:19 Guaifenesin (Robitussin) 200 mg PO Q4HR PRN PRN Reason: Cough or Congestion Stop: 02/14/17 21:19 Vancomycin HCl 1 gm/ Sodium (Chloride) 250 mls @ 166.667 mls/hr IV Q24H [facility] Stop: 02/14/17 21:29 Last Infusion: 12/17/16 22:30 Dose: Infused Dextrose (D5w) 1,000 mls @ 150 mls/hr IV .Q6H40M [facility] Stop: 02/16/17 11:59 Meropenem 1 gm/ Sodium (Chloride) 100 mls @ 100 mls/hr IV Q12H [facility] Stop: 02/16/17 12:14 Insulin Aspart (Novolog Insulin Sliding Scale) 0 units SUBQ ACHS DC PRN Reason: Protocol Stop: 02/15/17 20:59 Last Admin: 12/18/16 06:44 Dose: 8 units Insulin Human NPH (Novolin N) 20 units SUBQ BIDAC DC PRN Reason: Protocol Stop: 02/16/17 07:29 Last Admin: 12/18/16 06:44 Dose: 20 units Ipratropium [place] (Atrovent Neb 0.5mg/2.5ml) 0.5 mg IH Q2HRT PRN PRN Reason: Shortness of Breath or Wheeze Stop: 02/14/17 21:19 Lactobacillus Rhamnosus (Culturelle) 1 each GT Q12H DC Stop: 02/14/17 21:29 Last Admin: 12/18/16 09:01 Dose: 1 each Loperamide HCl (Imodium 1mg/5ml Suspension) 2 mg GT Q4H PRN PRN Reason: Diarrhea Stop: 02/14/17 21:15 Lorazepam (Ativan) 0.5 mg GT Q6H PRN; Protocol PRN Reason: Anxiety Stop: 02/14/17 21:15 Miscellaneous (Probiotic Screen) 1 ea MC PRN PRN PRN Reason: PROTOCOL Stop: 02/15/17 15:43 Morphine Sulfate (Morphine) 2 mg IVP Q4H PRN PRN Reason: Severe Pain Stop: 02/16/17 10:57 Ondansetron HCl (Zofran) 4 mg IV Q8H PRN PRN Reason: Nausea / Vomiting Stop: 02/14/17 21:19 Last Admin: 12/17/16 12:53 Dose: 4 mg Pantoprazole Sodium (Protonix) 40 mg GT Q24H DC Stop: 02/14/17 21:29 Last Admin: 12/17/16 21:01 Dose: 40 mg General: lethargic, demented, disheveled, bilateral temporal wasting, cachectic , appears older HEENT: NC/AT Neck: Supple, No LAD Lungs: congested, rales, ronchi Cardiovascular: RRR, Normal S1, Normal S2, without murmur Abdomen: soft, non-tender, globular, +GT, positive bowel sound Extremities: excoriation, contracture, ulcers stage 4 Neurological: no change, lethargic, disorganized, unable to follow command, bedbound, spastic - Procedures Procedures: Procedures Procedure Code Date ASSISTANCE WITH RESPIRATORY VENTILATION, 24-96 HRS, CPAP [id number] 09/12/16 BLOOD TRANSFUSION SERVICE 01396 12/16/16 [place] [address] 04/15/16 IMMUNIZATION ADMIN 01241 04/15/16 INSERT PICC CATH 33267 04/15/16 INSERTION OF INFUSION DEVICE INTO R ATRIUM, PERC APPROACH [id number] 04/15/16 INTRODUCTION OF SERUM/TOX/VACCINE INTO MUSCLE, PERC APPROACH [id number] 04/15/16 POS AIRWAY PRESSURE CPAP 61415 09/12/16 TRANSFUSE NONAUT RED BLOOD CELLS IN PERIPH VEIN, PERC [id number] 12/16/16 Internal Medicine Assmt/Plan - Assessment Assessment: acute renal failure severe sepsis pnm fever sad decub ulcer sp peg fuctional quad bedridden anemia Urine cx + Proteus Mirabilis MRSA blood leukocytosis lactic acidosis dmooc - Plan Plan: will add merrem ID consult surgical consult for possible wound debridement continue agreesive ivf montor glucose f/u labs wound care
[2016-12-18] MEDS: Dextrose 5% 1,000 ML IV SCH (13:45)
--- NOTE | 2016-12-18 13:55 | Consultation ---
Consult Note - Consult Note Service Date: 12/18/16 Consult Note: PHYSICIAN Consultation Note: Date of Admission: 12/16/16 Purpose of Consultation: Chief Complaint: Patient KARRI RATLIFF was admitted to location Intensive Care Unit with FEVER, SEPSIS. History of Present Illness: Patient is 66 y female with history of dementia, DM2, dysphagia, G tube placement, gluteal wounds was brought to the ER for evaluation of her fever and worsening of her mental status. On initial evaluation, her temperature was 100.3 degree F and It went up to 103 degree F. Her WBC count was 28,000 and creatinine was 2.6. Sepsis w/u was performed and her blood culture grew GNR and GPC. She is receiving vanco IV and meropenem. Urine culture grew Proteus mirabilis. ID Consult was called for further evaluation and management. Past Medical History: DM, DVT/PE, Dementia, UTIs, pneumonias, sepsis. Bedridden status. Diagnoses SEPSIS, UNSPECIFIED ORGANISM (12/16/16) ANEMIA, UNSPECIFIED (12/16/16) TYPE 2 DIABETES MELLITUS WITH HYPERGLYCEMIA (12/16/16) DEHYDRATION (12/16/16) HYPEROSMOLALITY AND HYPERNATREMIA (12/16/16) HYPERKALEMIA (12/16/16) ESSENTIAL (PRIMARY) HYPERTENSION (12/16/16) PNEUMONIA, UNSPECIFIED ORGANISM (12/16/16) GASTRO-ESOPHAGEAL REFLUX DISEASE WITHOUT ESOPHAGITIS (12/16/16) CONSTIPATION, UNSPECIFIED (12/16/16) PRESSURE ULCER OF UNSPECIFIED SITE, UNSPECIFIED STAGE (12/16/16) AGE-RELATED OSTEOPOROSIS W/O CURRENT PATHOLOGICAL FRACTURE (12/16/16) ACUTE KIDNEY FAILURE, UNSPECIFIED (12/16/16) URINARY TRACT INFECTION, SITE NOT SPECIFIED (12/16/16) FEVER, UNSPECIFIED (12/16/16) FUNCTIONAL QUADRIPLEGIA (12/16/16) SEVERE SEPSIS WITHOUT SEPTIC SHOCK (12/16/16) DO NOT RESUSCITATE (12/16/16) BED CONFINEMENT STATUS (12/16/16) GASTROSTOMY STATUS (12/16/16) Allergies Allergy/AdvReac Type Severity Reaction Status Date / Time Penicillins [PCN] Allergy Verified 04/17/16 14:17 Vital Signs Temp 99.2 F 12/18/16 08:00 Pulse 94 12/18/16 11:00 Resp 25 12/18/16 11:00 BP 95/43 12/18/16 11:00 Pulse Ox 96 12/18/16 11:00 Intake & Output 12/17/16 12/18/16 12/18/16 18:59 06:59 18:59 Intake Total 850 2050 Output Total 500 602 Balance 350 1448 Weight (lbs) 61.598 kg 64.013 kg Intake: Intake, IV Amount 1250 Sodium Chloride 0.45% 1, 1000 000 ml @ 150 mls/hr IV . Q6H40M [facility] Rx#:[id number] Vancomycin HCl 1 gm In 250 Sodium Chloride 0.9% 250 ml @ 166.667 mls/hr IV Q24H [facility] Rx#:[id number] Oral 0 Tube Feeding 600 600 Blood Product 250 Other 200 Output: Urine 500 600 Stool 2 Other: # Bowel Movements 3 Stool Characteristics Soft Soft Liquid Brown Brown Brown Laboratory Results - last 24 hr 12/17/16 12/17/16 12/17/16 09:45 13:20 16:13 WBC RBC Hgb Hct MCV MCH MCHC Differential RDW Plt Count MPV Band Neutrophils % Neutrophils (Manual) Lymphocytes Monocytes Eosinophils Platelet Estimate Platelet Morphology Anisocytosis RBC Morph Micro Appear Sodium Potassium Chloride Carbon Dioxide Anion Gap BUN Creatinine Est GFR ( Amer) Est GFR (Non-Af Amer) BUN/Creatinine Ratio Glucose POC Glucose 437 H Calcium Magnesium Random Vancomycin 17.3 Blood Type A POSITIVE Antibody Screen NEGATIVE Crossmatch See Detail 12/17/16 12/17/16 12/18/16 17:51 21:11 04:46 WBC 18.0 H D RBC 2.77 L Hgb 8.1 L Hct 25.1 L D MCV 90.5 MCH 29.3 MCHC Differential 32.4 RDW 18.3 Plt Count 220 D MPV 11.9 Band Neutrophils % 2 Neutrophils (Manual) 86 H Lymphocytes 8 L Monocytes 3 Eosinophils 1 Platelet Estimate ADEQUATE Platelet Morphology NORMAL Anisocytosis 1+ RBC Morph Micro Appear ABNORMAL Sodium Potassium Chloride Carbon Dioxide Anion Gap BUN Creatinine Est GFR ( Amer) Est GFR (Non-Af Amer) BUN/Creatinine Ratio Glucose POC Glucose 419 H 333 H Calcium Magnesium Random Vancomycin Blood Type Antibody Screen Crossmatch 12/18/16 12/18/16 04:46 11:58 WBC RBC Hgb Hct MCV MCH MCHC Differential RDW Plt Count MPV Band Neutrophils % Neutrophils (Manual) Lymphocytes Monocytes Eosinophils Platelet Estimate Platelet Morphology Anisocytosis RBC Morph Micro Appear Sodium 164 H* Potassium 3.5 Chloride 135 H Carbon Dioxide 18.6 L Anion Gap 13.9 BUN 121 H* Creatinine 2.4 H Est GFR ( Amer) 26.1 Est GFR (Non-Af Amer) 21.5 BUN/Creatinine Ratio 50.4 Glucose 326 H POC Glucose 265 H Calcium 8.7 Magnesium 2.7 Random Vancomycin Blood Type Antibody Screen Crossmatch Home Medication Medication Instructions Recorded Type Acetaminophen [Tylenol] 650 mg GT Q6HR PRN 04/15/16 History Acetaminophen [Tylenol Extra 1,000 mg GT Q8H PRN 09/12/16 History Strength] Acetaminophen [Tylenol] 650 mg GT DAILY 09/12/16 History Bisacodyl [Dulcolax 10 Mg Supp] 10 mg RC DAILY PRN 09/12/16 History Cran/Vitc/Mannose/Fos/Bromeln 30 ml GT DAILY 09/12/16 History [Uti-Stat 887 ml] Loperamide HCl [Anti-Diarrheal] 2 mg GT Q4H PRN 09/12/16 History Multivitamin w/ Minerals 1 tab GT DAILY 09/12/16 History [Theragran M] Mylanta 30 ml GT Q6H PRN 09/12/16 History traMADol HCl [Ultram] 50 mg GT Q6HR PRN 09/12/16 History Acetaminophen [Tylenol 650 mg GT Q6HR PRN #0 udc 09/19/16 Rx 650mg/20.3mL Suspension] Albuterol/Ipratropium Neb [Duoneb 3 ml HHN Q6HRT #0 aers 09/19/16 Rx Neb] Ascorbic Acid [Vitamin C] 500 mg GT DAILY #0 udc 09/19/16 Rx Balsam [place] Oil [Venelex] 1 appl TP DAILY #0 appl 09/19/16 Rx Hydrocodone/APAP 5mg/325mg [[place] 1 tab GT Q4H PRN #0 tab 09/19/16 Rx 5mg/325mg] Lactobacillus Rhamnosus 1 each GT Q12H #0 cap.sprink 09/19/16 Rx [Culturelle] Loperamide [Imodium 1mg/5mL 2 mg GT Q4H PRN #0 udc 09/19/16 Rx Suspension] Lorazepam [Ativan] 0.5 mg GT Q6H PRN #0 tab 09/19/16 Rx Magnesium Hydroxide [Milk of 30 ml GT HS PRN #0 [facility] 09/19/16 Rx Magnesia] Multivitamin w/ Minerals 1 tab GT DAILY #0 tab 09/19/16 Rx [Theragran M] Pantoprazole [Protonix] 40 mg GT Q24H #0 pkt 09/19/16 Rx guaiFENesin [Robitussin] 200 mg GT Q4HR PRN #0 [facility] 09/19/16 Rx Current Medications Generic Name Dose Route Start Last Admin Trade Name Freq PRN Reason Stop Dose Admin Acetaminophen 650 mg 12/16/16 21:16 12/18/16 09:08 Tylenol 650mg/20.3ml Suspension GT 02/14/17 21:15 650 mg Q6HR PRN Administration Pain or Fever >101 Acetaminophen/Hydrocodone Bitart 1 tab 12/16/16 21:16 [place] 5mg/325mg GT 02/14/17 21:15 Q4H PRN Pain (Severe) Albuterol Sulfate 2.5 mg 12/16/16 21:20 Albuterol 2.5mg/3ml Neb Ud N 02/14/17 21:19 Q2HRT PRN Shortness of Breath or Wheeze Albuterol/Ipratropium 3 ml 12/17/16 01:00 12/18/16 07:33 Duoneb Neb N 02/15/17 00:59 3 ml Q6HRT DC Administration Ascorbic Acid 500 mg 12/17/16 09:00 12/18/16 09:01 Vitamin C GT 02/15/17 08:59 500 mg DAILY DC Administration Bisacodyl 10 mg 12/16/16 21:16 Dulcolax 10 Mg Supp RC 02/14/17 21:15 DAILY PRN IF MOM INEFFECTIVE Clonidine HCl 0.1 mg 12/16/16 21:20 Catapres PO 02/14/17 21:19 Q6H PRN SBP GREATER THAN 160 Guaifenesin 200 mg 12/16/16 21:20 Robitussin PO 02/14/17 21:19 Q4HR PRN Cough or Congestion Vancomycin HCl 1 gm/ Sodium 250 mls @ 166.667 mls/hr 12/16/16 21:30 12/17/16 22:30 Chloride IV 02/14/17 21:29 Infused Q24H DC Infusion Dextrose 1,000 mls @ 150 mls/hr 12/18/16 12:00 D5w IV 02/16/17 11:59 .Q6H40M DC Meropenem 1 gm/ Sodium 100 mls @ 100 mls/hr 12/18/16 13:00 Chloride IV 02/16/17 12:59 Q12HR DC Insulin Aspart 0 units 12/17/16 21:00 12/18/16 12:34 Novolog Insulin Sliding Scale SUBQ 02/15/17 20:59 6 units ACHS DC Administration Protocol Insulin Human NPH 20 units 12/18/16 07:30 12/18/16 06:44 Novolin N SUBQ 02/16/17 07:29 20 units BIDAC DC Administration Protocol Ipratropium [place] 0.5 mg 12/16/16 21:20 Atrovent Neb 0.5mg/2.5ml IH 02/14/17 21:19 Q2HRT PRN Shortness of Breath or Wheeze Lactobacillus Rhamnosus 1 each 12/16/16 21:30 12/18/16 09:01 Culturelle GT 02/14/17 21:29 1 each Q12H DC Administration Loperamide HCl 2 mg 12/16/16 21:16 Imodium 1mg/5ml Suspension GT 02/14/17 21:15 Q4H PRN Diarrhea Lorazepam 0.5 mg 12/16/16 21:16 Ativan GT 02/14/17 21:15 Q6H PRN Anxiety Protocol Miscellaneous 1 ea 12/17/16 15:44 Probiotic Screen MC 02/15/17 15:43 PRN PRN PROTOCOL Morphine Sulfate 2 mg 12/18/16 10:58 Morphine IVP 02/16/17 10:57 Q4H PRN Severe Pain Ondansetron HCl 4 mg 12/16/16 21:20 12/17/16 12:53 Zofran IV 02/14/17 21:19 4 mg Q8H PRN Administration Nausea / Vomiting Pantoprazole Sodium 40 mg 12/16/16 21:30 12/17/16 21:01 Protonix GT 02/14/17 21:29 40 mg Q24H DC Administration Review of Systems: A 12 point ROS was reviewed with the pertinent positive and negatives noted in the HPI. Social History Smoking Status Smoker, status unknown Family Medical History Unknown. Physical Exam: Vitals as mentioned above. General: Comfortable, No Acute Distress. mildly cachectic. HEENT: EYEs: No pallor, no icterus. EOMI Bilaterally, pupil PERRLA Bilaterally. Head: normocephalic, atraumatic on inspection. Oral cavity: moist, pink tongue. Cardio: +S1/S2 Auscultated, RRR, no murmurs/rubs/gallops noted Respiratory: Clear to Auscultate Bilaterally Abdominal: Soft, Nondistended, Nontender to palpation x 4 quadrants. G tube site ok. Genital/Urinary: Ferraro catheter, cloudy urine with sediments. Extremities: No Edema noted in the lower extremities. Neurological: Able to open her eyes. alert, follows some of the commands. bedridden. Skin: Stage 4 sacral wound; ugly lookng with erythema. Assessment/Plan: 1. Staphylococcus sepsis most likey source is sacral wound, r/o osteomyelitis. 2. GNR sepsis. likely source is sacral wound and UTI. 3. UTI , pyelonephritis. 4. Sepsis shock, on fluid only. 5. sacral wound stage 4 r/o ostelyelitis. 6. DM2 7. Dementia. 8. 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 9. Diarrhea r/o CDAC. Recommendations: Will continue vanco IV and meropenem. Depending on the blood and wound culture report , will finalize antibiotic therapy. sacral wound culture. 3 phase bone scan. ESR CRP. Stool for C diff. Add flagyl. Thank you, Dr Cagle, for involving me in taking care of Ms Ratliff. Home Jeffrey Devesh N., M.D. [id number]
--- NOTE | 2016-12-18 14:19 | Diagnostic Imaging Report ---
Renal ultrasound HISTORY: Abnormal renal function test Overall exam is suboptimal in quality. The right kidney appears to be normal in size (11.0 x 5.5 x 4.8 cm). Normal cortical contour. No focal lesions. No significant dilatation of the collecting system. The left kidney appears normal in size (12.0 x 5.7 x 4.8 cm). No definite focal lesions. No hydronephrosis. The exam of the urinary bladder demonstrates an indwelling Ferraro catheter. Intraluminal echoes seen within the dependent region. Findings consistent with debris. Exact etiology uncertain. Correlation with urinalysis recommended. IMPRESSION: 1. No focal renal lesions or significant dilatation of the collecting systems. 2. Intraluminal density within the urinary bladder. Exact etiology uncertain. Findings may be associated with debris or possibly hematoma. Clinical correlation and correlation with urinalysis recommended.
[2016-12-18] MEDS: Meropenem 1 GM in Sodium Chloride 0.9% 100 ML IV SCH ×2 (15:00→20:52)
--- NOTE | 2016-12-18 16:51 | General Progress Note ---
Subjective - Review of Systems Service Date: 12/18/16 Events since last encounter: incontinent, loose stools, frequent has stage 4 sacral decubitus ulcer, bone exposed recommendation: diverting colostomy, debridement of ulcer and wound vac need consent from conservator Objective - Results Result Diagrams: 12/18/16 04:46 12/18/16 04:46 Recent Labs: Laboratory Last Values WBC 18.0 Th/cmm (4.8-10.8) H D 12/18/16 04:46 RBC 2.77 Mil/cmm (3.80-5.20) L 12/18/16 04:46 Hgb 8.1 gm/dL (11.7-16.1) L 12/18/16 04:46 Hct 25.1 % (35.0-45.0) L D 12/18/16 04:46 MCV 90.5 fl (81-100) 12/18/16 04:46 MCH 29.3 pg (27.0-31.0) 12/18/16 04:46 MCHC Differential 32.4 pg (28.0-36.0) 12/18/16 04:46 RDW 18.3 % (11.5-20.0) 12/18/16 04:46 Plt Count 220 Th/cmm (150-400) D 12/18/16 04:46 MPV 11.9 fl 12/18/16 04:46 Band Neutrophils % 2 % (0-10) 12/18/16 04:46 Neutrophils (Manual) 86 % (40-80) H 12/18/16 04:46 Lymphocytes 8 % (20-50) L 12/18/16 04:46 Monocytes 3 % (2-10) 12/18/16 04:46 Eosinophils 1 % (0-5) 12/18/16 04:46 Platelet Estimate ADEQUATE (NORMAL) 12/18/16 04:46 Platelet Morphology NORMAL (NORMAL) 12/18/16 04:46 Polychromasia 1+ 12/17/16 06:36 Anisocytosis 1+ 12/18/16 04:46 RBC Morph Micro Appear ABNORMAL (NORMAL) 12/18/16 04:46 Sodium 164 mEq/L (136-145) H* 12/18/16 04:46 Potassium 3.5 mEq/L (3.5-5.1) 12/18/16 04:46 Chloride 135 mEq/L (98-107) H 12/18/16 04:46 Carbon Dioxide 18.6 mEq/L (21.0-31.0) L 12/18/16 04:46 Anion Gap 13.9 (7.0-16.0) 12/18/16 04:46 BUN 121 mg/dL (7-25) H* 12/18/16 04:46 Creatinine 2.4 mg/dL (0.6-1.2) H 12/18/16 04:46 Est GFR ( Amer) 26.1 ml/min (>90) 12/18/16 04:46 Est GFR (Non-Af Amer) 21.5 ml/min 12/18/16 04:46 BUN/Creatinine Ratio 50.4 12/18/16 04:46 Glucose 326 mg/dL (70-105) H 12/18/16 04:46 POC Glucose 265 MG/DL (70 - 105) H 12/18/16 11:58 Hemoglobin A1c % 7.1 % (4.0-6.0) H 12/16/16 18:45 Whole Bld Lactic Acid 3.95 mmol/L (0.60-1.99) H* 12/16/16 20:48 Calcium 8.7 mg/dL (8.6-10.3) 12/18/16 04:46 Magnesium 2.7 mg/dL (1.9-2.7) 12/18/16 04:46 Total Bilirubin 0.2 mg/dL (0.3-1.0) L 12/17/16 06:36 AST 15 U/L (13-39) 12/17/16 06:36 ALT 36 U/L (7-52) 12/17/16 06:36 Alkaline Phosphatase 111 U/L (34-104) H 12/17/16 06:36 Ammonia 43 umol/L (16-53) 12/17/16 06:36 B-Natriuretic Peptide 385.0 pg/mL (5.0-100.0) H 12/17/16 06:36 Total Protein 7.5 gm/dL (6.0-8.3) 12/17/16 06:36 Albumin 3.2 gm/dL (3.7-5.3) L 12/17/16 06:36 Globulin 4.3 gm/dL 12/17/16 06:36 Albumin/Globulin Ratio 0.7 (1.0-1.8) L 12/17/16 06:36 TSH 1.38 uIU/ml (0.34-5.60) 12/17/16 06:36 Urine Source [place] 12/16/16 18:40 Urine Color YELLOW 12/16/16 18:40 Urine Clarity HAZY (CLEAR) 12/16/16 18:40 Urine pH >=9.0 12/16/16 18:40 Ur Specific [place]sk 1.010 (1.005-1.030) 12/16/16 18:40 Urine Protein >300 mg/dL (NEGATIVE) H 12/16/16 18:40 Urine Glucose (UA) 250 mg/dL (NEGATIVE) H 12/16/16 18:40 Urine Ketones NEGATIVE mg/dL (NEGATIVE) 12/16/16 18:40 Urine Blood NEGATIVE (NEGATIVE) 12/16/16 18:40 Urine Nitrate POSITIVE (NEGATIVE) H 12/16/16 18:40 Urine Bilirubin NEGATIVE (NEGATIVE) 12/16/16 18:40 Urine Urobilinogen 0.2 E.U./dL (0.2 - 1.0) 12/16/16 18:40 Ur Leukocyte Esterase SMALL (NEGATIVE) H 12/16/16 18:40 Urine RBC 0-2 /hpf (0-5) 12/16/16 18:40 Urine WBC 50-100 /hpf (0-5) H 12/16/16 18:40 Ur Epithelial Cells FEW /lpf (FEW) 12/16/16 18:40 Triple Phos Crystals FEW /hpf (FEW) 12/16/16 18:40 Urine Bacteria MANY /hpf (NONE SEEN) 12/16/16 18:40 Random Vancomycin 28.0 ug/mL (5.0-40.0) 12/18/16 04:46 Blood Type A POSITIVE 12/17/16 09:45 Antibody Screen NEGATIVE 12/17/16 09:45 Crossmatch See Detail 12/17/16 09:45 - Physical Exam Vitals and I&O: Vital Signs Temp 98.9 F 12/18/16 16:00 Pulse 90 12/18/16 16:00 Resp 24 12/18/16 16:00 BP 100/45 12/18/16 16:00 Pulse Ox 97 12/18/16 16:00 Intake & Output 12/17/16 12/18/16 12/18/16 18:59 06:59 18:59 Intake Total 850 2050 100 Output Total 500 602 Balance 350 1448 100 Weight (lbs) 61.598 kg 64.013 kg Intake: Intake, IV Amount 1250 100 Meropenem 1 gm In Sodium 100 Chloride 0.9% 100 ml @ 100 mls/hr IV Q12HR [facility] Rx#:[id number] Sodium Chloride 0.45% 1, 1000 000 ml @ 150 mls/hr IV . Q6H40M [facility] Rx#:[id number] Vancomycin HCl 1 gm In 250 Sodium Chloride 0.9% 250 ml @ 166.667 mls/hr IV Q24H [facility] Rx#:[id number] Oral 0 Tube Feeding 600 600 Blood Product 250 Other 200 Output: Urine 500 600 Stool 2 Other: # Bowel Movements 3 Stool Characteristics Soft Soft Liquid Brown Brown Mucoid Brown Green Active Medications: Current Medications Acetaminophen (Tylenol 650mg/20.3ml Suspension) 650 mg GT Q6HR PRN PRN Reason: Pain or Fever >101 Stop: 02/14/17 21:15 Last Admin: 12/18/16 09:08 Dose: 650 mg Acetaminophen/Hydrocodone Bitart ([place] 5mg/325mg) 1 tab GT Q4H PRN PRN Reason: Pain (Severe) Stop: 02/14/17 21:15 Albuterol Sulfate (Albuterol 2.5mg/3ml Neb Ud) 2.5 mg HHN Q2HRT PRN PRN Reason: Shortness of Breath or Wheeze Stop: 02/14/17 21:19 Albuterol/Ipratropium (Duoneb Neb) 3 ml HHN Q6HRT [facility] Stop: 02/15/17 00:59 Last Admin: 12/18/16 13:48 Dose: 3 ml Ascorbic Acid (Vitamin C) 500 mg GT DAILY [facility] Stop: 02/15/17 08:59 Last Admin: 12/18/16 09:01 Dose: 500 mg Bisacodyl (Dulcolax 10 Mg Supp) 10 mg RC DAILY PRN PRN Reason: IF MOM INEFFECTIVE Stop: 02/14/17 21:15 Clonidine HCl (Catapres) 0.1 mg PO Q6H PRN PRN Reason: SBP GREATER THAN 160 Stop: 02/14/17 21:19 Guaifenesin (Robitussin) 200 mg PO Q4HR PRN PRN Reason: Cough or Congestion Stop: 02/14/17 21:19 Dextrose (D5w) 1,000 mls @ 150 mls/hr IV .Q6H40M DC Stop: 02/16/17 11:59 Last Admin: 12/18/16 13:45 Dose: 150 mls/hr Meropenem 1 gm/ Sodium (Chloride) 100 mls @ 100 mls/hr IV Q12HR DC Stop: 02/16/17 12:59 Last Infusion: 12/18/16 16:07 Dose: Infused Metronidazole (Flagyl) 500 mg in 100 mls @ 100 mls/hr IV Q8HR [facility] Stop: 02/16/17 13:59 Insulin Aspart (Novolog Insulin Sliding Scale) 0 units SUBQ ACHS DC PRN Reason: Protocol Stop: 02/15/17 20:59 Last Admin: 12/18/16 12:34 Dose: 6 units Insulin Human NPH (Novolin N) 20 units SUBQ BIDAC DC PRN Reason: Protocol Stop: 02/16/17 07:29 Last Admin: 12/18/16 06:44 Dose: 20 units Ipratropium [place] (Atrovent Neb 0.5mg/2.5ml) 0.5 mg IH Q2HRT PRN PRN Reason: Shortness of Breath or Wheeze Stop: 02/14/17 21:19 Lactobacillus Rhamnosus (Culturelle) 1 each GT Q12H DC Stop: 02/14/17 21:29 Last Admin: 12/18/16 09:01 Dose: 1 each Loperamide HCl (Imodium 1mg/5ml Suspension) 2 mg GT Q4H PRN PRN Reason: Diarrhea Stop: 02/14/17 21:15 Lorazepam (Ativan) 0.5 mg GT Q6H PRN; Protocol PRN Reason: Anxiety Stop: 02/14/17 21:15 Miscellaneous (Probiotic Screen) 1 ea PRN PRN PRN Reason: PROTOCOL Stop: 02/15/17 15:43 Miscellaneous (Vancomycin Iv Per Pharmacy) 1 ea DAILY [facility] Stop: 02/16/17 12:59 Morphine Sulfate (Morphine) 2 mg IVP Q4H PRN PRN Reason: Severe Pain Stop: 02/16/17 10:57 Ondansetron HCl (Zofran) 4 mg IV Q8H PRN PRN Reason: Nausea / Vomiting Stop: 02/14/17 21:19 Last Admin: 12/17/16 12:53 Dose: 4 mg Pantoprazole Sodium (Protonix) 40 mg GT Q24H DC Stop: 02/14/17 21:29 Last Admin: 12/17/16 21:01 Dose: 40 mg General: Alert, No acute distress HEENT: PERRLA Neck: Supple Cardiovascular: Regular rate Lungs: Clear to auscultation Abdomen: Bowel sounds (normal), Soft Extremities: Edema (none) - Procedures Procedures: Procedures Procedure Code Date ASSISTANCE WITH RESPIRATORY VENTILATION, 24-96 HRS, CPAP [id number] 09/12/16 BLOOD TRANSFUSION SERVICE 31066 12/16/16 [place] [id number] 04/15/16 IMMUNIZATION ADMIN [id number] 04/15/16 INSERT PICC CATH 10097 04/15/16 INSERTION OF INFUSION DEVICE INTO R ATRIUM, PERC APPROACH [id number] 04/15/16 INTRODUCTION OF SERUM/TOX/VACCINE INTO MUSCLE, PERC APPROACH [id number] 04/15/16 POS AIRWAY PRESSURE CPAP 20429 09/12/16 TRANSFUSE NONAUT RED BLOOD CELLS IN PERIPH VEIN, PERC [id number] 12/16/16 Assessment/Plan - Problem List Patient Problems: All Active Problems FEVER WITH ELEVATED WBC, BUN (Acute) Hyperosmolality and hypernatremia (Acute) E87.0 Weakness (Acute) azotemia better (Acute) Nutritional Asmnt/Malnutr-PDOC - Dietary Evaluation Malnutrition Findings (Please click <Entered> for more info): Nutritional Asmnt/Malnutrition Start: 12/18/16 14: 50 Text: Status: Complete Freq: Document 12/18/16 14:51 GSUN (Rec: 12/18/16 15:26 [facility] Nutritional Asmnt/Malnutrition Patient General Information Nutritional Screening Consult Diagnosis Sepsis, sepsis shock, sacral wound stage 4, DM2, diarrhea, CKD vs PER CKD Pertinent Medical Hx/Surgical Hx HTN, bronchitis, penumonia, dementia, constipation, GERD, gastritis, anxiety, psychosis, muscle atrophy, weakness, stiffness, acute renal failure , UTI, osteoporosis Subjective Information 66 year old female from SNF. RD consult for wound. Pt noted with consistent diarrhea. Spoke to Dr. Gonzalez on the phone this AM. Current diet order per Nutren 1.0 at 40ml/hr vs Glucerna at 40ml/hr . RD called Dr. Gonzalez back for clarification at around 11 :30am, waiting for callback. RD endorsed to RN Nabila regarding enteral feeding recommendations. Plan for aggressiveh dyration noted in MD notes, also noted just cover glucose with higher dose of insulin. Observed Diabetisource running at 50ml/ hr during visit. No severe muscle/fat wasting noted. CBW 133.3lb with equipment removed . Current Diet Order/ Nutrition Support Glucerna 40ml/hr vs Nutren 1.0 40ml/hr Pertinent Medications Vitamin C, D5W, Novolog, Novolin, Culturelle, Flagyl, Vancomycin, Morphine, Zofran, Protonix Pertinent Labs 12/16: A1c 7.1H 12/18: sodium 164H, BUN 121H, creatinine 2.4H, glucose 326H Nutritional Hx/Data Height 1.63 m Height (Calculated Centimeters) 162.6 Current Weight (lbs) 60.464 kg Weight (Calculated Kilograms) 60.5 Weight (Calculated Grams) 89539.9 [place] Body Weight 120 Weight Status Approriate GI Symptoms GI Symptoms Diarrhea Difficult in: Chewing Swallowing Usual diet at home [place] Care: Jevity 1.2 at 70ml/hr x 20hrs, prostat Skin Integrity/Comment: Ruslan Oro. note: sacral wound stage 4 Estimated Nutritional Goals Calories/Kcals/Kg IBW 120lb/54.5kg due to questionable weights obtained Kcals Calculated 1635-1980kcal (30-35kcal/kg, sepsis, skin integrity, bedridden) Protein Calculated 76-98g (1.4-1.8g/kg, renal vs sacral wound stage 4) Fluid: ml Per (plan for aggressive hydration) Nutritional Problem 3. Problem Problem Increased kcal andp rot needs realted to Etiology hypermetabolic state, skin integrity aeb Signs/Symptoms: sepsis, sacral wound stage 4 2. Problem Problem Altered nutrition related laboratory values related to Etiology DM aeb Signs/Symptoms: A1c 7.1, glucose >180 1. Problem Problem Altered GI function related to Etiology unknown etiology aeb Signs/Symptoms: consistent diarrhea Intervention/Recommendation Comments 1. Current diet order reads: Nutren 1.0 at 40ml/hr with comment Glucerna ( Diabetisource) at 40ml/hr, providing to meet 59% and 70%, respectively, of lower end of kcal needs. RD called Dr. Gonzalez 11:30am to clarify order, waiting for call back. Current MDs' nutrition related plan of care: aggressive hydration, resolve diarrhea. 2. Recommend Diabetisource at 60ml/hr, providing 1440ml total volume, 1728kcal to meet 100% of lower end of kcal needs, and 86g protein. OR if kept with Nutren 1.0, recommend 1 packet Prosource via tube, 1 packet Arginaid via tube, rate at 70ml/hr, prvoiding 1680ml total volume, 1680kcal, 67g protein from tube feeding. Expected Outcomes/Goals Expected Outcomes/Goals 1. Diarrhea to resolve. 2. Pt to meet 100% of estimated nutritional needs on tube feeding with tolerance.
[2016-12-18] MEDS: metroNIDAZOLE 500mg/NS 100mL 500 MG/100 ML BAG IV SCH ×2 (17:15→21:57)
[2016-12-18] MEDS: Pantoprazole 40 mg/Packet GT SCH (20:53)
[2016-12-18] MEDS: Morphine Sulfate 4 mg/mL 1mL Syr IVP PRN (23:15)
[2016-12-19] MEDS: Albuterol/Ipratropium Neb 3 ML AERS HHN SCH ×4 (00:55→19:29)
[2016-12-19] MEDS: Dextrose 5% 1,000 ML IV SCH (03:50)
[2016-12-19] MEDS: metroNIDAZOLE 500mg/NS 100mL 500 MG/100 ML BAG IV SCH ×3 (05:06→22:13)
[2016-12-19 05:19] LABS: MEAN CELL VOLUME 88.8 fl (81-100)
[2016-12-19 05:32] LABS: MEAN CORPUSCULAR HEMOGLOBIN 29.8 pg (27.0-31.0); MEAN CORPUSCULAR HGB CONC 33.6 pg (28.0-36.0); MEAN PLATELET VOLUME 11.3 fl; PLATELET COUNT 192 Th/cmm (150-400); RED BLOOD COUNT 2.27 Mil/cmm (3.80-5.20); RED CELL DISTRIBUTION WIDTH 17.7 % (11.5-20.0)
[2016-12-19 05:38] LABS: HEMATOCRIT 20.1 % (35.0-45.0); WHITE BLOOD COUNT 12.3 Th/cmm (4.8-10.8)
[2016-12-19 06:03] LABS: ANION GAP 11.2 (7.0-16.0); BUN/CREATININE RATIO 51.9; CALCIUM SERUM 8.5 mg/dL (8.6-10.3); CARBON DIOXIDE 17.1 mEq/L (21.0-31.0); CREATININE - SERUM 1.6 mg/dL (0.6-1.2)
[2016-12-19 06:06] LABS: POTASSIUM SERUM 2.3 mEq/L (3.5-5.1)
[2016-12-19 06:07] LABS: VANCOMYCIN RANDOM 20.1 ug/mL (5.0-40.0)
[2016-12-19] MEDS: INSULIN ASPART SLIDING SCALE 100 UNITS/ML UNIT SUBQ SCH ×4 (06:43→22:10)
[2016-12-19] MEDS: INSULIN HUMAN ISOPHANE (NPH) 100 UNITS/ML SUBQ SCH ×2 (06:44→17:40)
[2016-12-19 07:11] LABS: NEUTROPHILS 89 % (40-80); PLATELET ESTIMATE ADEQUATE (NORMAL); TOTAL CELLS COUNTED 100
[2016-12-19 08:21] LABS: HEMOGLOBIN 6.8 gm/dL (11.7-16.1)
[2016-12-19] MEDS ORDERED: Potassium Chloride 40 MEQ, Lidocaine 1% 20mL Vial 25 MG in Sodium Chloride 0.9% 250 ML IV ONE (08:45)
[2016-12-19] MEDS: Multivitamin w/ Minerals Tab GT SCH (10:04)
[2016-12-19] MEDS: Lactobacillus Rhamnosus 10 Billion CFU Capsule GT SCH ×2 (10:04→21:32)
[2016-12-19 10:16] LABS: IRON SATURATION 23 % (15-55); TIBC (LCI) 168 ug/dL (250-450); UIBC 130 ug/dL (118-369)
[2016-12-19] MEDS: Ascorbic Acid 500 mg/5 mL UDC GT SCH (10:34)
--- NOTE | 2016-12-19 11:28 | Infectious Disease Prog Note ---
Infectious Disease Subjective - Review of Systems Service Date: 12/19/16 Subjective: patient remains confused. She continues to have diarrhea, and has rectal tube in place. Febrile today. Infectious Disease Objective - Results Result Diagrams: 12/19/16 04:40 12/19/16 04:40 Recent Labs: Laboratory Last Values WBC 12.3 Th/cmm (4.8-10.8) H D 12/19/16 04:40 RBC 2.27 Mil/cmm (3.80-5.20) L 12/19/16 04:40 Hgb 6.8 gm/dL (11.7-16.1) L* D 12/19/16 04:40 Hct 20.1 % (35.0-45.0) L* D 12/19/16 04:40 MCV 88.8 fl (81-100) 12/19/16 04:40 MCH 29.8 pg (27.0-31.0) 12/19/16 04:40 MCHC Differential 33.6 pg (28.0-36.0) 12/19/16 04:40 RDW 17.7 % (11.5-20.0) 12/19/16 04:40 Plt Count 192 Th/cmm (150-400) 12/19/16 04:40 MPV 11.3 fl 12/19/16 04:40 Band Neutrophils % 2 % (0-10) 12/18/16 04:46 Neutrophils (Manual) 89 % (40-80) H 12/19/16 04:40 Lymphocytes 9 % (20-50) L 12/19/16 04:40 Monocytes 2 % (2-10) 12/19/16 04:40 Eosinophils 1 % (0-5) 12/18/16 04:46 Platelet Estimate ADEQUATE (NORMAL) 12/19/16 04:40 Platelet Morphology NORMAL (NORMAL) 12/18/16 04:46 Polychromasia 1+ 12/17/16 06:36 Anisocytosis 1+ 12/18/16 04:46 RBC Morph Micro Appear ABNORMAL (NORMAL) 12/18/16 04:46 ESR > 140 mm/hr (0-30) H 12/19/16 04:40 Sodium 160 mEq/L (136-145) H* 12/19/16 04:40 Potassium 2.3 mEq/L (3.5-5.1) L* D 12/19/16 04:40 Chloride 134 mEq/L (98-107) H 12/19/16 04:40 Carbon Dioxide 17.1 mEq/L (21.0-31.0) L 12/19/16 04:40 Anion Gap 11.2 (7.0-16.0) 12/19/16 04:40 BUN 83 mg/dL (7-25) H* 12/19/16 04:40 Creatinine 1.6 mg/dL (0.6-1.2) H 12/19/16 04:40 Est GFR ( Amer) 41.6 ml/min (>90) 12/19/16 04:40 Est GFR (Non-Af Amer) 34.4 ml/min 12/19/16 04:40 BUN/Creatinine Ratio 51.9 12/19/16 04:40 Glucose 207 mg/dL (70-105) H 12/19/16 04:40 POC Glucose 205 MG/DL (70 - 105) H 12/19/16 08:57 Hemoglobin A1c % 7.1 % (4.0-6.0) H 12/16/16 18:45 Whole Bld Lactic Acid 3.95 mmol/L (0.60-1.99) H* 12/16/16 20:48 Calcium 8.5 mg/dL (8.6-10.3) L 12/19/16 04:40 Magnesium 2.7 mg/dL (1.9-2.7) 12/18/16 04:46 Iron 38 ug/dL (27-139) 12/18/16 04:46 TIBC 168 ug/dL (250-450) L 12/18/16 04:46 Iron Saturation 23 % (15-55) 12/18/16 04:46 Unsaturated IBC 130 ug/dL (118-369) 12/18/16 04:46 Total Bilirubin 0.2 mg/dL (0.3-1.0) L 12/17/16 06:36 AST 15 U/L (13-39) 12/17/16 06:36 ALT 36 U/L (7-52) 12/17/16 06:36 Alkaline Phosphatase 111 U/L (34-104) H 12/17/16 06:36 Ammonia 43 umol/L (16-53) 12/17/16 06:36 C-Reactive Protein 19.8 mg/dL (0.0-0.9) H 12/19/16 04:40 B-Natriuretic Peptide 385.0 pg/mL (5.0-100.0) H 12/17/16 06:36 Total Protein 7.5 gm/dL (6.0-8.3) 12/17/16 06:36 Albumin 3.2 gm/dL (3.7-5.3) L 12/17/16 06:36 Globulin 4.3 gm/dL 12/17/16 06:36 Albumin/Globulin Ratio 0.7 (1.0-1.8) L 12/17/16 06:36 TSH 1.38 uIU/ml (0.34-5.60) 12/17/16 06:36 Urine Source [place] 12/16/16 18:40 Urine Color YELLOW 12/16/16 18:40 Urine Clarity HAZY (CLEAR) 12/16/16 18:40 Urine pH >=9.0 12/16/16 18:40 Ur Specific [place] 1.010 (1.005-1.030) 12/16/16 18:40 Urine Protein >300 mg/dL (NEGATIVE) H 12/16/16 18:40 Urine Glucose (UA) 250 mg/dL (NEGATIVE) H 12/16/16 18:40 Urine Ketones NEGATIVE mg/dL (NEGATIVE) 12/16/16 18:40 Urine Blood NEGATIVE (NEGATIVE) 12/16/16 18:40 Urine Nitrate POSITIVE (NEGATIVE) H 12/16/16 18:40 Urine Bilirubin NEGATIVE (NEGATIVE) 12/16/16 18:40 Urine Urobilinogen 0.2 E.U./dL (0.2 - 1.0) 12/16/16 18:40 Ur Leukocyte Esterase SMALL (NEGATIVE) H 12/16/16 18:40 Urine RBC 0-2 /hpf (0-5) 12/16/16 18:40 Urine WBC 50-100 /hpf (0-5) H 12/16/16 18:40 Ur Epithelial Cells FEW /lpf (FEW) 12/16/16 18:40 Triple Phos Crystals FEW /hpf (FEW) 12/16/16 18:40 Urine Bacteria MANY /hpf (NONE SEEN) 12/16/16 18:40 Random Vancomycin 20.1 ug/mL (5.0-40.0) 12/19/16 04:40 Blood Type A POSITIVE 12/17/16 09:45 Antibody Screen NEGATIVE 12/17/16 09:45 Crossmatch See Detail 12/17/16 09:45 - Physical Exam Vitals and I&O: Vital Signs Temp 98.9 F 12/19/16 11:03 Pulse 91 12/19/16 11:03 Resp 23 12/19/16 11:03 BP 106/46 12/19/16 11:03 Pulse Ox 99 12/19/16 11:03 Intake & Output 12/18/16 12/19/16 12/19/16 18:59 06:59 18:59 Intake Total 900 2100 Output Total 1700 1100 Balance -800 1000 Weight (lbs) 60.781 kg 59.92 kg Intake: Intake, IV Amount 100 1300 Dextrose 5% 1,000 ml @ 1000 150 mls/hr IV .Q6H40M [facility] Rx#:[id number] Meropenem 1 gm In Sodium 100 100 Chloride 0.9% 100 ml @ 100 mls/hr IV Q12HR [facility] Rx#:[id number] metroNIDAZOLE 500mg/NS 200 100mL 500 mg In 100 ml @ 100 mls/hr IV Q8HR [facility] Rx #:[id number] Tube Feeding 600 600 Other 200 200 Output: Urine 1600 1000 Stool 100 100 Other: # Bowel Movements 4 3 Stool Characteristics Liquid Liquid Liquid Mucoid Mucoid Brown Brown Brown Green Green Active Medications: Current Medications Acetaminophen (Tylenol 650mg/20.3ml Suspension) 650 mg GT Q6HR PRN PRN Reason: Pain or Fever >101 Stop: 02/14/17 21:15 Last Admin: 12/19/16 09:29 Dose: 650 mg Acetaminophen/Hydrocodone Bitart (Vina 5mg/325mg) 1 tab GT Q4H PRN PRN Reason: Pain (Severe) Stop: 02/14/17 21:15 Albuterol Sulfate (Albuterol 2.5mg/3ml Neb Ud) 2.5 mg HHN Q2HRT PRN PRN Reason: Shortness of Breath or Wheeze Stop: 02/14/17 21:19 Albuterol/Ipratropium (Duoneb Neb) 3 ml HHN Q6HRT [facility] Stop: 02/15/17 00:59 Last Admin: 12/19/16 08:14 Dose: 3 ml Ascorbic Acid (Vitamin C) 500 mg GT DAILY [facility] Stop: 02/15/17 08:59 Last Admin: 12/19/16 10:34 Dose: 500 mg Bisacodyl (Dulcolax 10 Mg Supp) 10 mg RC DAILY PRN PRN Reason: IF MOM INEFFECTIVE Stop: 02/14/17 21:15 Clonidine HCl (Catapres) 0.1 mg PO Q6H PRN PRN Reason: SBP GREATER THAN 160 Stop: 02/14/17 21:19 Guaifenesin (Robitussin) 200 mg PO Q4HR PRN PRN Reason: Cough or Congestion Stop: 02/14/17 21:19 Dextrose (D5w) 1,000 mls @ 150 mls/hr IV .Q6H40M [facility] Stop: 02/16/17 11:59 Last Admin: 12/19/16 03:50 Dose: 150 mls/hr Meropenem 1 gm/ Sodium (Chloride) 100 mls @ 100 mls/hr IV Q12HR [facility] Stop: 02/16/17 12:59 Last Infusion: 12/18/16 21:58 Dose: Infused Metronidazole (Flagyl) 500 mg in 100 mls @ 100 mls/hr IV Q8HR [facility] Stop: 02/16/17 13:59 Last Admin: 12/19/16 05:06 Dose: 100 mls/hr Potassium Chloride 40 meq/Lidocaine HCl 25 mg/ Sodium Chloride 272.5 mls @ 68 mls/hr IV X1 ONE Stop: 12/19/16 12:45 Vancomycin HCl 1.25 gm/ Sodium (Chloride) 250 mls @ 165 mls/hr IV Q24HR [facility] Stop: 02/17/17 09:59 Insulin Aspart (Novolog Insulin Sliding Scale) 0 units SUBQ ACHS DC PRN Reason: Protocol Stop: 02/15/17 20:59 Last Admin: 12/19/16 06:43 Dose: 4 units Insulin Human NPH (Novolin N) 20 units SUBQ BIDAC DC PRN Reason: Protocol Stop: 02/16/17 07:29 Last Admin: 12/19/16 06:44 Dose: 20 units Ipratropium [place] (Atrovent Neb 0.5mg/2.5ml) 0.5 mg IH Q2HRT PRN PRN Reason: Shortness of Breath or Wheeze Stop: 02/14/17 21:19 Lactobacillus Rhamnosus (Culturelle) 1 each GT Q12H DC Stop: 02/14/17 21:29 Last Admin: 12/19/16 10:04 Dose: 1 each Loperamide HCl (Imodium 1mg/5ml Suspension) 2 mg GT Q4H PRN PRN Reason: Diarrhea Stop: 02/14/17 21:15 Lorazepam (Ativan) 0.5 mg GT Q6H PRN; Protocol PRN Reason: Anxiety Stop: 02/14/17 21:15 Last Admin: 12/18/16 23:53 Dose: 0.5 mg Miscellaneous (Probiotic Screen) 1 [facility] PRN PRN PRN Reason: PROTOCOL Stop: 02/15/17 15:43 Miscellaneous (Vancomycin Iv Per Pharmacy) 1 [facility] DAILY DC Stop: 02/16/17 12:59 Morphine Sulfate (Morphine) 2 mg IVP Q4H PRN PRN Reason: Severe Pain Stop: 02/16/17 10:57 Last Admin: 12/18/16 23:15 Dose: 2 mg Ondansetron HCl (Zofran) 4 mg IV Q8H PRN PRN Reason: Nausea / Vomiting Stop: 02/14/17 21:19 Last Admin: 12/17/16 12:53 Dose: 4 mg Pantoprazole Sodium (Protonix) 40 mg GT Q24H DC Stop: 02/14/17 21:29 Last Admin: 12/18/16 20:53 Dose: 40 mg General: no acute distress, cachectic HEENT: atraumatic, normocephalic, PERRLA, EOMI, no moist mucous membrane Neck: supple, no thyromegaly, no lymphadenopathy, no rigid Cardiovascular: S1S2, regular Lungs: clear to auscultation bilaterally, clear to percussion Abdomen: soft, no tender, no distended Extremities: no cyanosis, no clubbing, no edema Neurological: other (confused.) Skin: other (stage 4 decubitus.) - Procedures Procedures: Procedures Procedure Code Date ASSISTANCE WITH RESPIRATORY VENTILATION, 24-96 HRS, CPAP [id number] 09/12/16 BLOOD TRANSFUSION SERVICE [id number] 12/16/16 [place] [id number] 04/15/16 IMMUNIZATION ADMIN [id number] 04/15/16 INSERT PICC CATH [id number] 04/15/16 INSERTION OF INFUSION DEVICE INTO R [facility], [facility] APPROACH [id number] 04/15/16 INTRODUCTION OF SERUM/TOX/VACCINE INTO MUSCLE, [facility] APPROACH [id number] 04/15/16 POS AIRWAY PRESSURE CPAP [id number] 09/12/16 TRANSFUSE NONAUT RED BLOOD CELLS IN PERIPH VEIN, [facility] [id number] 12/16/16 Infectious Disease Assmt/Plan - Problem List Patient Problems: All Active Problems FEVER WITH ELEVATED WBC, BUN (Acute) Hyperosmolality and hypernatremia (Acute) E87.0 Weakness (Acute) azotemia better (Acute) - Assessment Assessment: 1. Staphylococcus aureus, MRSA sepsis most likey source is sacral wound, clinically osteomyelitis with very elevated ESR and CRP. 2. GNR sepsis. likely source is sacral wound and UTI. 3. UTI , pyelonephritis. 4. Sepsis shock, on fluid only. 5. 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 6. DM2 7. UTI: Proteus. 8. 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 9. Diarrhea r/o CDAC. 10. Hypokalemia. 11. metabolic acidosis. 12. Dementia. Recommendations: Will continue vanco IV and meropenem. Depending on the blood and wound culture report , will finalize antibiotic therapy. sacral wound culture. 3 phase bone scan. K supplementation, check magnesium. Stool for C diff. Continue flagyl. 2 D echo. Nutritional Asmnt/Malnutr-PDOC - Dietary Evaluation Malnutrition Findings (Please click <Entered> for more info): Nutritional Asmnt/Malnutrition Start: 12/18/16 14: 50 Text: Status: Complete Freq: Document 12/18/16 14:51 GSUN (Rec: 12/18/16 15:26 GSUN [email or web address]) Nutritional Asmnt/Malnutrition Patient General Information Nutritional Screening Consult Diagnosis Sepsis, sepsis shock, sacral wound stage 4, DM2, diarrhea, CKD vs PER CKD Pertinent Medical Hx/Surgical Hx HTN, bronchitis, penumonia, dementia, constipation, GERD, gastritis, anxiety, psychosis, muscle atrophy, weakness, stiffness, acute renal failure , UTI, osteoporosis Subjective Information 66 year old female from SNF. RD consult for wound. Pt noted with consistent diarrhea. Spoke to Dr. Gonzalez on the phone this AM. Current diet order per MD Nutren 1.0 at 40ml/hr vs Glucerna at 40ml/hr . RD called Dr. Gonzalez back for clarification at around 11 :30am, waiting for callback. RD endorsed to EDWIGE Dahl regarding enteral feeding recommendations. Plan for aggressiveh dyration noted in MD notes, also noted just cover glucose with higher dose of insulin. Observed Diabetisource running at 50ml/ hr during visit. No severe muscle/fat wasting noted. CBW 133.3lb with equipment removed . Current Diet Order/ Nutrition Support Glucerna 40ml/hr vs Nutren 1.0 40ml/hr Pertinent Medications Vitamin C, D5W, Novolog, Novolin, Culturelle, Flagyl, Vancomycin, Morphine, Zofran, Protonix Pertinent Labs 12/16: A1c 7.1H 12/18: sodium 164H, BUN 121H, creatinine 2.4H, glucose 326H Nutritional Hx/Data Height 1.63 m Height (Calculated Centimeters) 162.6 Current Weight (lbs) 60.464 kg Weight (Calculated Kilograms) 60.5 Weight (Calculated Grams) 18535.9 [place] Body Weight 120 Weight Status Approriate GI Symptoms GI Symptoms Diarrhea Difficult in: Chewing Swallowing Usual diet at home Ethel Care: Jevity 1.2 at 70ml/hr x 20hrs, prostat Skin Integrity/Comment: Ruslan Lim MD note: sacral wound stage 4 Estimated Nutritional Goals Calories/Kcals/Kg IBW 120lb/54.5kg due to questionable weights obtained Kcals Calculated 1635-1980kcal (30-35kcal/kg, sepsis, skin integrity, bedridden) Protein Calculated 76-98g (1.4-1.8g/kg, renal vs sacral wound stage 4) Fluid: ml Per MD (plan for aggressive hydration) Nutritional Problem 3. Problem Problem Increased kcal andp rot needs realted to Etiology hypermetabolic state, skin integrity aeb Signs/Symptoms: sepsis, sacral wound stage 4 2. Problem Problem Altered nutrition related laboratory values related to Etiology DM aeb Signs/Symptoms: A1c 7.1, glucose >180 1. Problem Problem Altered GI function related to Etiology unknown etiology aeb Signs/Symptoms: consistent diarrhea Intervention/Recommendation Comments 1. Current diet order reads: Nutren 1.0 at 40ml/hr with comment Glucerna ( Diabetisource) at 40ml/hr, providing to meet 59% and 70%, respectively, of lower end of kcal needs. RD called Dr. Gonzalez 11:30am to clarify order, waiting for call back. Current MDs' nutrition related plan of care: aggressive hydration, resolve diarrhea. 2. Recommend Diabetisource at 60ml/hr, providing 1440ml total volume, 1728kcal to meet 100% of lower end of kcal needs, and 86g protein. OR if kept with Nutren 1.0, recommend 1 packet Prosource via tube, 1 packet Arginaid via tube, rate at 70ml/hr, prvoiding 1680ml total volume, 1680kcal, 67g protein from tube feeding. Expected Outcomes/Goals Expected Outcomes/Goals 1. Diarrhea to resolve. 2. Pt to meet 100% of estimated nutritional needs on tube feeding with tolerance.
[2016-12-19] MEDS: Meropenem 1 GM in Sodium Chloride 0.9% 100 ML IV SCH ×2 (11:42→21:32)
[2016-12-19] MEDS ORDERED: Albuterol Nebulizer 2.5mg/3mL HHN SCH (11:45)
--- NOTE | 2016-12-19 11:58 | Internal Medicine Prog Note ---
Internal Medicine Subjective - Subjective Service Date: 12/19/16 Patient seen and examined:: with staff Patient is:: awake, non-verbal, non-interactive, arousable, in bed, talking, denies any new complaints, agitated, confused Patient Complaints of:: congestion, cough, bloated, SOB Per staff patient has:: no adverse event, no episodes of fall, noncompliant, tolerating meds, refusing care, refusing labs Internal Medicine Objective - Results Result Diagrams: 12/19/16 04:40 12/19/16 04:40 Recent Labs: Laboratory Last Values WBC 12.3 Th/cmm (4.8-10.8) H D 12/19/16 04:40 RBC 2.27 Mil/cmm (3.80-5.20) L 12/19/16 04:40 Hgb 6.8 gm/dL (11.7-16.1) L* D 12/19/16 04:40 Hct 20.1 % (35.0-45.0) L* D 12/19/16 04:40 MCV 88.8 fl (81-100) 12/19/16 04:40 MCH 29.8 pg (27.0-31.0) 12/19/16 04:40 MCHC Differential 33.6 pg (28.0-36.0) 12/19/16 04:40 RDW 17.7 % (11.5-20.0) 12/19/16 04:40 Plt Count 192 Th/cmm (150-400) 12/19/16 04:40 MPV 11.3 fl 12/19/16 04:40 Band Neutrophils % 2 % (0-10) 12/18/16 04:46 Neutrophils (Manual) 89 % (40-80) H 12/19/16 04:40 Lymphocytes 9 % (20-50) L 12/19/16 04:40 Monocytes 2 % (2-10) 12/19/16 04:40 Eosinophils 1 % (0-5) 12/18/16 04:46 Platelet Estimate ADEQUATE (NORMAL) 12/19/16 04:40 Platelet Morphology NORMAL (NORMAL) 12/18/16 04:46 Polychromasia 1+ 12/17/16 06:36 Anisocytosis 1+ 12/18/16 04:46 RBC Morph Micro Appear ABNORMAL (NORMAL) 12/18/16 04:46 ESR > 140 mm/hr (0-30) H 12/19/16 04:40 Sodium 160 mEq/L (136-145) H* 12/19/16 04:40 Potassium 2.3 mEq/L (3.5-5.1) L* D 12/19/16 04:40 Chloride 134 mEq/L (98-107) H 12/19/16 04:40 Carbon Dioxide 17.1 mEq/L (21.0-31.0) L 12/19/16 04:40 Anion Gap 11.2 (7.0-16.0) 12/19/16 04:40 BUN 83 mg/dL (7-25) H* 12/19/16 04:40 Creatinine 1.6 mg/dL (0.6-1.2) H 12/19/16 04:40 Est GFR ( Amer) 41.6 ml/min (>90) 12/19/16 04:40 Est GFR (Non-Af Amer) 34.4 ml/min 12/19/16 04:40 BUN/Creatinine Ratio 51.9 12/19/16 04:40 Glucose 207 mg/dL (70-105) H 12/19/16 04:40 POC Glucose 205 MG/DL (70 - 105) H 12/19/16 08:57 Hemoglobin A1c % 7.1 % (4.0-6.0) H 12/16/16 18:45 Whole Bld Lactic Acid 3.95 mmol/L (0.60-1.99) H* 12/16/16 20:48 Calcium 8.5 mg/dL (8.6-10.3) L 12/19/16 04:40 Magnesium 2.2 mg/dL (1.9-2.7) 12/19/16 04:40 Iron 38 ug/dL (27-139) 12/18/16 04:46 TIBC 168 ug/dL (250-450) L 12/18/16 04:46 Iron Saturation 23 % (15-55) 12/18/16 04:46 Unsaturated IBC 130 ug/dL (118-369) 12/18/16 04:46 Total Bilirubin 0.2 mg/dL (0.3-1.0) L 12/17/16 06:36 AST 15 U/L (13-39) 12/17/16 06:36 ALT 36 U/L (7-52) 12/17/16 06:36 Alkaline Phosphatase 111 U/L (34-104) H 12/17/16 06:36 Ammonia 43 umol/L (16-53) 12/17/16 06:36 C-Reactive Protein 19.8 mg/dL (0.0-0.9) H 12/19/16 04:40 B-Natriuretic Peptide 385.0 pg/mL (5.0-100.0) H 12/17/16 06:36 Total Protein 7.5 gm/dL (6.0-8.3) 12/17/16 06:36 Albumin 3.2 gm/dL (3.7-5.3) L 12/17/16 06:36 Globulin 4.3 gm/dL 12/17/16 06:36 Albumin/Globulin Ratio 0.7 (1.0-1.8) L 12/17/16 06:36 TSH 1.38 uIU/ml (0.34-5.60) 12/17/16 06:36 Urine Source [place] 12/16/16 18:40 Urine Color YELLOW 12/16/16 18:40 Urine Clarity HAZY (CLEAR) 12/16/16 18:40 Urine pH >=9.0 12/16/16 18:40 Ur Specific [place] 1.010 (1.005-1.030) 12/16/16 18:40 Urine Protein >300 mg/dL (NEGATIVE) H 12/16/16 18:40 Urine Glucose (UA) 250 mg/dL (NEGATIVE) H 12/16/16 18:40 Urine Ketones NEGATIVE mg/dL (NEGATIVE) 12/16/16 18:40 Urine Blood NEGATIVE (NEGATIVE) 12/16/16 18:40 Urine Nitrate POSITIVE (NEGATIVE) H 12/16/16 18:40 Urine Bilirubin NEGATIVE (NEGATIVE) 12/16/16 18:40 Urine Urobilinogen 0.2 E.U./dL (0.2 - 1.0) 12/16/16 18:40 Ur Leukocyte Esterase SMALL (NEGATIVE) H 12/16/16 18:40 Urine RBC 0-2 /hpf (0-5) 12/16/16 18:40 Urine WBC 50-100 /hpf (0-5) H 12/16/16 18:40 Ur Epithelial Cells FEW /lpf (FEW) 12/16/16 18:40 Triple Phos Crystals FEW /hpf (FEW) 12/16/16 18:40 Urine Bacteria MANY /hpf (NONE SEEN) 12/16/16 18:40 Random Vancomycin 20.1 ug/mL (5.0-40.0) 12/19/16 04:40 Blood Type A POSITIVE 12/17/16 09:45 Antibody Screen NEGATIVE 12/17/16 09:45 Crossmatch See Detail 12/17/16 09:45 - Physical Exam Vitals and I&O: Vital Signs Temp 98.9 F 12/19/16 11:03 Pulse 91 12/19/16 11:03 Resp 23 12/19/16 11:03 BP 106/46 12/19/16 11:03 Pulse Ox 99 12/19/16 11:03 Intake & Output 12/18/16 12/19/16 12/19/16 18:59 06:59 18:59 Intake Total 900 2100 Output Total 1700 1100 Balance -800 1000 Weight (lbs) 134 lb 132 lb 1.6 oz Intake: Intake, IV Amount 100 1300 Dextrose 5% 1,000 ml @ 1000 150 mls/hr IV .Q6H40M [facility] Rx#:[id number] Meropenem 1 gm In Sodium 100 100 Chloride 0.9% 100 ml @ 100 mls/hr IV Q12HR DC Rx#:[id number] metroNIDAZOLE 500mg/NS 200 100mL 500 mg In 100 ml @ 100 mls/hr IV Q8HR DC Rx #:[id number] Tube Feeding 600 600 Other 200 200 Output: Urine 1600 1000 Stool 100 100 Other: # Bowel Movements 4 3 Stool Characteristics Liquid Liquid Liquid Mucoid Mucoid Brown Brown Brown Green Green Active Medications: Current Medications Acetaminophen (Tylenol 650mg/20.3ml Suspension) 650 mg GT Q6HR PRN PRN Reason: Pain or Fever >101 Stop: 02/14/17 21:15 Last Admin: 12/19/16 09:29 Dose: 650 mg Acetaminophen/Hydrocodone Bitart ([place] 5mg/325mg) 1 tab GT Q4H PRN PRN Reason: Pain (Severe) Stop: 02/14/17 21:15 Albuterol Sulfate (Albuterol 2.5mg/3ml Neb Ud) 2.5 mg HHN Q2HRT PRN PRN Reason: Shortness of Breath or Wheeze Stop: 02/14/17 21:19 Albuterol/Ipratropium (Duoneb Neb) 3 ml HHN Q6HRT [facility] Stop: 02/15/17 00:59 Last Admin: 12/19/16 08:14 Dose: 3 ml Ascorbic Acid (Vitamin C) 500 mg GT DAILY [facility] Stop: 02/15/17 08:59 Last Admin: 12/19/16 10:34 Dose: 500 mg Bisacodyl (Dulcolax 10 Mg Supp) 10 mg RC DAILY PRN PRN Reason: IF MOM INEFFECTIVE Stop: 02/14/17 21:15 Clonidine HCl (Catapres) 0.1 mg PO Q6H PRN PRN Reason: SBP GREATER THAN 160 Stop: 02/14/17 21:19 Guaifenesin (Robitussin) 200 mg PO Q4HR PRN PRN Reason: Cough or Congestion Stop: 02/14/17 21:19 Dextrose (D5w) 1,000 mls @ 150 mls/hr IV .Q6H40M [facility] Stop: 02/16/17 11:59 Last Admin: 12/19/16 03:50 Dose: 150 mls/hr Meropenem 1 gm/ Sodium (Chloride) 100 mls @ 100 mls/hr IV Q12HR [facility] Stop: 02/16/17 12:59 Last Admin: 12/19/16 11:42 Dose: 100 mls/hr Metronidazole (Flagyl) 500 mg in 100 mls @ 100 mls/hr IV Q8HR [facility] Stop: 02/16/17 13:59 Last Admin: 12/19/16 05:06 Dose: 100 mls/hr Potassium Chloride 40 meq/Lidocaine HCl 25 mg/ Sodium Chloride 272.5 mls @ 68 mls/hr IV X1 ONE Stop: 12/19/16 12:45 Vancomycin HCl 1.25 gm/ Sodium (Chloride) 250 mls @ 165 mls/hr IV Q24HR [facility] Stop: 02/17/17 09:59 Insulin Aspart (Novolog Insulin Sliding Scale) 0 units SUBQ ACHS DC PRN Reason: Protocol Stop: 02/15/17 20:59 Last Admin: 12/19/16 06:43 Dose: 4 units Insulin Human NPH (Novolin N) 20 units SUBQ BIDAC DC PRN Reason: Protocol Stop: 02/16/17 07:29 Last Admin: 12/19/16 06:44 Dose: 20 units Ipratropium [place] (Atrovent Neb 0.5mg/2.5ml) 0.5 mg IH Q2HRT PRN PRN Reason: Shortness of Breath or Wheeze Stop: 02/14/17 21:19 Lactobacillus Rhamnosus (Culturelle) 1 each GT Q12H DC Stop: 02/14/17 21:29 Last Admin: 12/19/16 10:04 Dose: 1 each Loperamide HCl (Imodium 1mg/5ml Suspension) 2 mg GT Q4H PRN PRN Reason: Diarrhea Stop: 02/14/17 21:15 Lorazepam (Ativan) 0.5 mg GT Q6H PRN; Protocol PRN Reason: Anxiety Stop: 02/14/17 21:15 Last Admin: 12/18/16 23:53 Dose: 0.5 mg Miscellaneous (Probiotic Screen) 1 [facility] PRN PRN PRN Reason: PROTOCOL Stop: 02/15/17 15:43 Miscellaneous (Vancomycin Iv Per Pharmacy) 1 [facility] DAILY DC Stop: 02/16/17 12:59 Morphine Sulfate (Morphine) 2 mg IVP Q4H PRN PRN Reason: Severe Pain Stop: 02/16/17 10:57 Last Admin: 12/18/16 23:15 Dose: 2 mg Ondansetron HCl (Zofran) 4 mg IV Q8H PRN PRN Reason: Nausea / Vomiting Stop: 02/14/17 21:19 Last Admin: 12/17/16 12:53 Dose: 4 mg Pantoprazole Sodium (Protonix) 40 mg GT Q24H DC Stop: 02/14/17 21:29 Last Admin: 12/18/16 20:53 Dose: 40 mg General: lethargic, demented, disheveled, bilateral temporal wasting, cachectic , appears older HEENT: NC/AT Neck: Supple, No LAD Lungs: congested, rales, ronchi Cardiovascular: RRR, Normal S1, Normal S2, without murmur Abdomen: soft, non-tender, globular, +GT, positive bowel sound Extremities: excoriation, contracture, ulcers stage 4 Neurological: no change, lethargic, disorganized, unable to follow command, bedbound, spastic - Procedures Procedures: Procedures Procedure Code Date ASSISTANCE WITH RESPIRATORY VENTILATION, 24-96 HRS, CPAP [id number] 09/12/16 BLOOD TRANSFUSION SERVICE 12298 12/16/16 [place] [id number] 04/15/16 IMMUNIZATION ADMIN [id number] 04/15/16 INSERT PICC CATH [id number] 04/15/16 INSERTION OF INFUSION DEVICE INTO R ATRIUM, PERC APPROACH [id number] 04/15/16 INTRODUCTION OF SERUM/TOX/VACCINE INTO MUSCLE, PERC APPROACH [id number] 04/15/16 POS AIRWAY PRESSURE CPAP [id number] 09/12/16 TRANSFUSE NONAUT RED BLOOD CELLS IN PERIPH VEIN, PERC [id number] 12/16/16 Internal Medicine Assmt/Plan - Assessment Assessment: hypokalemia severe anemia acute renal failure severe sepsis pnm fever sad decub ulcer sp peg fuctional quad bedridden anemia Urine cx + Proteus Mirabilis MRSA blood leukocytosis lactic acidosis dmooc - Plan Plan: replace k+ transfuse 2 units prbc monitor h/h possible wound debridement continue agreesive ivf montor glucose f/u labs in am wound care Nutritional Asmnt/Malnutr-PDOC - Dietary Evaluation Malnutrition Findings (Please click <Entered> for more info): Nutritional Asmnt/Malnutrition Start: 12/18/16 14: 50 Text: Status: Complete Freq: Document 12/18/16 14:51 GSUN (Rec: 12/18/16 15:26 GSUN [email or web address]) Nutritional Asmnt/Malnutrition Patient General Information Nutritional Screening Consult Diagnosis Sepsis, sepsis shock, sacral wound stage 4, DM2, diarrhea, CKD vs PER CKD Pertinent Medical Hx/Surgical Hx HTN, bronchitis, penumonia, dementia, constipation, GERD, gastritis, anxiety, psychosis, muscle atrophy, weakness, stiffness, acute renal failure , UTI, osteoporosis Subjective Information 66 year old female from SNF. RD consult for wound. Pt noted with consistent diarrhea. Spoke to Dr. Gonzalez on the phone this AM. Current diet order per Nutren 1.0 at 40ml/hr vs Glucerna at 40ml/hr . RD called Dr. Gonzalez back for clarification at around 11 :30am, waiting for callback. RD endorsed to RN Nabila regarding enteral feeding recommendations. Plan for aggressiveh dyration noted in MD notes, also noted just cover glucose with higher dose of insulin. Observed Diabetisource running at 50ml/ hr during visit. No severe muscle/fat wasting noted. CBW 133.3lb with equipment removed . Current Diet Order/ Nutrition Support Glucerna 40ml/hr vs Nutren 1.0 40ml/hr Pertinent Medications Vitamin C, D5W, Novolog, Novolin, Culturelle, Flagyl, Vancomycin, Morphine, Zofran, Protonix Pertinent Labs 12/16: A1c 7.1H 12/18: sodium 164H, BUN 121H, creatinine 2.4H, glucose 326H Nutritional Hx/Data Height 5 ft 4 in Height (Calculated Centimeters) 162.6 Current Weight (lbs) 133 lb 4.8 oz Weight (Calculated Kilograms) 60.5 Weight (Calculated Grams) 10022.9 [place] Body Weight 120 Weight Status Approriate GI Symptoms GI Symptoms Diarrhea Difficult in: Chewing Swallowing Usual diet at home [place] Care: Jevity 1.2 at 70ml/hr x 20hrs, prostat Skin Integrity/Comment: Ruslan Oro. note: sacral wound stage 4 Estimated Nutritional Goals Calories/Kcals/Kg IBW 120lb/54.5kg due to questionable weights obtained Kcals Calculated 1635-1980kcal (30-35kcal/kg, sepsis, skin integrity, bedridden) Protein Calculated 76-98g (1.4-1.8g/kg, renal vs sacral wound stage 4) Fluid: ml Per MD (plan for aggressive hydration) Nutritional Problem 3. Problem Problem Increased kcal andp rot needs realted to Etiology hypermetabolic state, skin integrity aeb Signs/Symptoms: sepsis, sacral wound stage 4 2. Problem Problem Altered nutrition related laboratory values related to Etiology DM aeb Signs/Symptoms: A1c 7.1, glucose >180 1. Problem Problem Altered GI function related to Etiology unknown etiology aeb Signs/Symptoms: consistent diarrhea Intervention/Recommendation Comments 1. Current diet order reads: Nutren 1.0 at 40ml/hr with comment Glucerna ( Diabetisource) at 40ml/hr, providing to meet 59% and 70%, respectively, of lower end of kcal needs. RD called Dr. Gonzalez 11:30am to clarify order, waiting for call back. Current MDs' nutrition related plan of care: aggressive hydration, resolve diarrhea. 2. Recommend Diabetisource at 60ml/hr, providing 1440ml total volume, 1728kcal to meet 100% of lower end of kcal needs, and 86g protein. OR if kept with Nutren 1.0, recommend 1 packet Prosource via tube, 1 packet Arginaid via tube, rate at 70ml/hr, prvoiding 1680ml total volume, 1680kcal, 67g protein from tube feeding. Expected Outcomes/Goals Expected Outcomes/Goals 1. Diarrhea to resolve. 2. Pt to meet 100% of estimated nutritional needs on tube feeding with tolerance.
--- NOTE | 2016-12-19 13:59 | Diagnostic Imaging Report ---
Sacrum/coccyx (2 views) HISTORY: Pain, osteomyelitis, correlation with radionuclide bone scan Views are suboptimal with limited detail. No obvious focal abnormality seen in the region of the sacrum or coccyx. Specifically, no definite destructive bony changes or evidence of osteomyelitis. Degenerative changes noted at the L5-S1 level along with mild spondylolisthesis of L5 on S1. There is an approximate 2.0 cm calcification in the right pelvis with an appearance suggestive of probable fibroid formation. IMPRESSION: 1. Limited exam 2. No definite destructive bony changes or evidence of osteomyelitis. 3. Severe degenerative changes in the visualized lumbar spine
[2016-12-19 14:07] LABS: ANION GAP 7.8 (7.0-16.0); BUN/CREATININE RATIO 54.3; CALCIUM SERUM 8.6 mg/dL (8.6-10.3); CARBON DIOXIDE 18.7 mEq/L (21.0-31.0); CREATININE - SERUM 1.4 mg/dL (0.6-1.2)
[2016-12-19 14:10] LABS: POTASSIUM SERUM 2.5 mEq/L (3.5-5.1)
[2016-12-19] MEDS: Venelex 60gm Tube TP SCH (14:19)
--- NOTE | 2016-12-19 18:14 | General Progress Note ---
Subjective - Review of Systems Service Date: 12/19/16 (lethargic to stuporous) Events since last encounter: continued diarrhea although better hypernatremia slowwly improving with hypotonic fluid hypokalemia persis both GI an Rnal loss etiology Objective - Results Result Diagrams: 12/19/16 04:40 12/19/16 13:25 Recent Labs: Laboratory Last Values WBC 12.3 Th/cmm (4.8-10.8) H D 12/19/16 04:40 RBC 2.27 Mil/cmm (3.80-5.20) L 12/19/16 04:40 Hgb 6.8 gm/dL (11.7-16.1) L* D 12/19/16 04:40 Hct 20.1 % (35.0-45.0) L* D 12/19/16 04:40 MCV 88.8 fl (81-100) 12/19/16 04:40 MCH 29.8 pg (27.0-31.0) 12/19/16 04:40 MCHC Differential 33.6 pg (28.0-36.0) 12/19/16 04:40 RDW 17.7 % (11.5-20.0) 12/19/16 04:40 Plt Count 192 Th/cmm (150-400) 12/19/16 04:40 MPV 11.3 fl 12/19/16 04:40 Band Neutrophils % 2 % (0-10) 12/18/16 04:46 Neutrophils (Manual) 89 % (40-80) H 12/19/16 04:40 Lymphocytes 9 % (20-50) L 12/19/16 04:40 Monocytes 2 % (2-10) 12/19/16 04:40 Eosinophils 1 % (0-5) 12/18/16 04:46 Platelet Estimate ADEQUATE (NORMAL) 12/19/16 04:40 Platelet Morphology NORMAL (NORMAL) 12/18/16 04:46 Polychromasia 1+ 12/17/16 06:36 Anisocytosis 1+ 12/18/16 04:46 RBC Morph Micro Appear ABNORMAL (NORMAL) 12/18/16 04:46 ESR > 140 mm/hr (0-30) H 12/19/16 04:40 Sodium 155 mEq/L (136-145) H 12/19/16 13:25 Potassium 2.5 mEq/L (3.5-5.1) L* 12/19/16 13:25 Chloride 131 mEq/L (98-107) H 12/19/16 13:25 Carbon Dioxide 18.7 mEq/L (21.0-31.0) L 12/19/16 13:25 Anion Gap 7.8 (7.0-16.0) 12/19/16 13:25 BUN 76 mg/dL (7-25) H 12/19/16 13:25 Creatinine 1.4 mg/dL (0.6-1.2) H 12/19/16 13:25 Est GFR ( Amer) 48.5 ml/min (>90) 12/19/16 13:25 Est GFR (Non-Af Amer) 40.1 ml/min 12/19/16 13:25 BUN/Creatinine Ratio 54.3 12/19/16 13:25 Glucose 216 mg/dL (70-105) H 12/19/16 13:25 POC Glucose 206 MG/DL (70 - 105) H 12/19/16 17:16 Hemoglobin A1c % 7.1 % (4.0-6.0) H 12/16/16 18:45 Whole Bld Lactic Acid 1.65 mmol/L (0.60-1.99) 12/19/16 13:25 Calcium 8.6 mg/dL (8.6-10.3) 12/19/16 13:25 Magnesium 2.2 mg/dL (1.9-2.7) 12/19/16 04:40 Iron 38 ug/dL (27-139) 12/18/16 04:46 TIBC 168 ug/dL (250-450) L 12/18/16 04:46 Iron Saturation 23 % (15-55) 12/18/16 04:46 Unsaturated IBC 130 ug/dL (118-369) 12/18/16 04:46 Total Bilirubin 0.2 mg/dL (0.3-1.0) L 12/17/16 06:36 AST 15 U/L (13-39) 12/17/16 06:36 ALT 36 U/L (7-52) 12/17/16 06:36 Alkaline Phosphatase 111 U/L (34-104) H 12/17/16 06:36 Ammonia 43 umol/L (16-53) 12/17/16 06:36 C-Reactive Protein 19.8 mg/dL (0.0-0.9) H 12/19/16 04:40 B-Natriuretic Peptide 385.0 pg/mL (5.0-100.0) H 12/17/16 06:36 Total Protein 7.5 gm/dL (6.0-8.3) 12/17/16 06:36 Albumin 3.2 gm/dL (3.7-5.3) L 12/17/16 06:36 Globulin 4.3 gm/dL 12/17/16 06:36 Albumin/Globulin Ratio 0.7 (1.0-1.8) L 12/17/16 06:36 TSH 1.38 uIU/ml (0.34-5.60) 12/17/16 06:36 Urine Source [place] 12/16/16 18:40 Urine Color YELLOW 12/16/16 18:40 Urine Clarity HAZY (CLEAR) 12/16/16 18:40 Urine pH >=9.0 12/16/16 18:40 Ur Specific [place] 1.010 (1.005-1.030) 12/16/16 18:40 Urine Protein >300 mg/dL (NEGATIVE) H 12/16/16 18:40 Urine Glucose (UA) 250 mg/dL (NEGATIVE) H 12/16/16 18:40 Urine Ketones NEGATIVE mg/dL (NEGATIVE) 12/16/16 18:40 Urine Blood NEGATIVE (NEGATIVE) 12/16/16 18:40 Urine Nitrate POSITIVE (NEGATIVE) H 12/16/16 18:40 Urine Bilirubin NEGATIVE (NEGATIVE) 12/16/16 18:40 Urine Urobilinogen 0.2 E.U./dL (0.2 - 1.0) 12/16/16 18:40 Ur Leukocyte Esterase SMALL (NEGATIVE) H 12/16/16 18:40 Urine RBC 0-2 /hpf (0-5) 12/16/16 18:40 Urine WBC 50-100 /hpf (0-5) H 12/16/16 18:40 Ur Epithelial Cells FEW /lpf (FEW) 12/16/16 18:40 Triple Phos Crystals FEW /hpf (FEW) 12/16/16 18:40 Urine Bacteria MANY /hpf (NONE SEEN) 12/16/16 18:40 Random Vancomycin 20.1 ug/mL (5.0-40.0) 12/19/16 04:40 Blood Type A POSITIVE 12/17/16 09:45 Antibody Screen NEGATIVE 12/17/16 09:45 Crossmatch See Detail 12/17/16 09:45 - Physical Exam Vitals and I&O: Vital Signs Temp 99.1 F 12/19/16 16:45 Pulse 116 12/19/16 16:45 Resp 22 12/19/16 16:45 BP 87/65 12/19/16 16:45 Pulse Ox 99 12/19/16 18:00 Intake & Output 12/18/16 12/19/16 12/19/16 18:59 06:59 18:59 Intake Total 900 2200 750 Output Total 1700 1100 1200 Balance -800 1100 -450 Weight (lbs) 60.781 kg 59.92 kg 59.874 kg Intake: Intake, IV Amount 100 1400 450 Dextrose 5% 1,000 ml @ 1000 150 mls/hr IV .Q6H40M DC Rx#:[id number] Meropenem 1 gm In Sodium 100 100 100 Chloride 0.9% 100 ml @ 100 mls/hr IV Q12HR DC Rx#:[id number] Vancomycin HCl 1.25 gm In 250 Sodium Chloride 0.9% 250 ml @ 165 mls/hr IV Q24HR DC Rx#:[id number] metroNIDAZOLE 500mg/NS 300 100 100mL 500 mg In 100 ml @ 100 mls/hr IV Q8HR DC Rx #:[id number] Tube Feeding 600 600 Other 200 200 300 Output: Urine 1600 1000 1000 Stool 100 100 200 Other: # Bowel Movements 4 3 1 Stool Characteristics Liquid Liquid Liquid Mucoid Mucoid Brown Brown Brown Green Green Active Medications: Current Medications Acetaminophen (Tylenol 650mg/20.3ml Suspension) 650 mg GT Q6HR PRN PRN Reason: Pain or Fever >101 Stop: 02/14/17 21:15 Last Admin: 12/19/16 09:29 Dose: 650 mg Acetaminophen/Hydrocodone Bitart ([place] 5mg/325mg) 1 tab GT Q4H PRN PRN Reason: Pain (Severe) Stop: 02/14/17 21:15 Albuterol Sulfate (Albuterol 2.5mg/3ml Neb Ud) 2.5 mg HHN Q2HRT PRN PRN Reason: Shortness of Breath or Wheeze Stop: 02/14/17 21:19 Albuterol/Ipratropium (Duoneb Neb) 3 ml HHN Q6HRT [facility] Stop: 02/15/17 00:59 Last Admin: 12/19/16 14:46 Dose: 3 ml Ascorbic Acid (Vitamin C) 500 mg GT DAILY [facility] Stop: 02/15/17 08:59 Last Admin: 12/19/16 10:34 Dose: 500 mg Bisacodyl (Dulcolax 10 Mg Supp) 10 mg RC DAILY PRN PRN Reason: IF MOM INEFFECTIVE Stop: 02/14/17 21:15 Clonidine HCl (Catapres) 0.1 mg PO Q6H PRN PRN Reason: SBP GREATER THAN 160 Stop: 02/14/17 21:19 Guaifenesin (Robitussin) 200 mg PO Q4HR PRN PRN Reason: Cough or Congestion Stop: 02/14/17 21:19 Meropenem 1 gm/ Sodium (Chloride) 100 mls @ 100 mls/hr IV Q12HR [facility] Stop: 02/16/17 12:59 Last Infusion: 12/19/16 12:40 Dose: Infused Metronidazole (Flagyl) 500 mg in 100 mls @ 100 mls/hr IV Q8HR [facility] Stop: 02/16/17 13:59 Last Infusion: 12/19/16 15:15 Dose: Infused Vancomycin HCl 1.25 gm/ Sodium (Chloride) 250 mls @ 165 mls/hr IV Q24HR [facility] Stop: 02/17/17 09:59 Last Infusion: 12/19/16 14:30 Dose: Infused Potassium Chloride 40 meq/ (Dextrose) 1,020 mls @ 100 mls/hr IV .[id number] [facility] Stop: 02/17/17 15:41 Last Admin: 12/19/16 17:09 Dose: 100 mls/hr Insulin Aspart (Novolog Insulin Sliding Scale) 0 units SUBQ ACHS [facility] PRN Reason: Protocol Stop: 02/15/17 20:59 Last Admin: 12/19/16 17:38 Dose: Not Given Insulin Human NPH (Novolin N) 20 units SUBQ BIDAC DC PRN Reason: Protocol Stop: 02/16/17 07:29 Last Admin: 12/19/16 17:40 Dose: 20 units Ipratropium [place] (Atrovent Neb 0.5mg/2.5ml) 0.5 mg IH Q2HRT PRN PRN Reason: Shortness of Breath or Wheeze Stop: 02/14/17 21:19 Lactobacillus Rhamnosus (Culturelle) 1 each GT Q12H DC Stop: 02/14/17 21:29 Last Admin: 12/19/16 10:04 Dose: 1 each Loperamide HCl (Imodium 1mg/5ml Suspension) 2 mg GT Q4H PRN PRN Reason: Diarrhea Stop: 02/14/17 21:15 Lorazepam (Ativan) 0.5 mg GT Q6H PRN; Protocol PRN Reason: Anxiety Stop: 02/14/17 21:15 Last Admin: 12/18/16 23:53 Dose: 0.5 mg Midodrine (Proamatine) 5 mg PO TID DC Stop: 02/17/17 20:59 Miscellaneous (Probiotic Screen) 1 [facility] PRN PRN PRN Reason: PROTOCOL Stop: 02/15/17 15:43 Miscellaneous (Vancomycin Iv Per Pharmacy) 1 [facility] DAILY DC Stop: 02/16/17 12:59 Morphine Sulfate (Morphine) 2 mg IVP Q4H PRN PRN Reason: Severe Pain Stop: 02/16/17 10:57 Last Admin: 12/18/16 23:15 Dose: 2 mg Ondansetron HCl (Zofran) 4 mg IV Q8H PRN PRN Reason: Nausea / Vomiting Stop: 02/14/17 21:19 Last Admin: 12/17/16 12:53 Dose: 4 mg Pantoprazole Sodium (Protonix) 40 mg GT Q24H DC Stop: 02/14/17 21:29 Last Admin: 12/18/16 20:53 Dose: 40 mg General: Alert, No acute distress, Other (stuporous) HEENT: PERRLA Neck: Supple Cardiovascular: Regular rate Lungs: Clear to auscultation, Other (adeuqate air exchage) Abdomen: Bowel sounds (normal), Soft Extremities: Edema (none) - Procedures Procedures: Procedures Procedure Code Date ASSISTANCE WITH RESPIRATORY VENTILATION, 24-96 HRS, CPAP [id number] 09/12/16 BLOOD TRANSFUSION SERVICE 36054 12/16/16 [place] [id number] 04/15/16 IMMUNIZATION ADMIN [id number] 04/15/16 INSERT PICC CATH [id number] 04/15/16 INSERTION OF INFUSION DEVICE INTO R [facility], [facility] APPROACH [id number] 04/15/16 INTRODUCTION OF SERUM/TOX/VACCINE INTO MUSCLE, [facility] APPROACH [id number] 04/15/16 POS AIRWAY PRESSURE CPAP [id number] 09/12/16 TRANSFUSE NONAUT RED BLOOD CELLS IN PERIPH VEIN, [facility] [id number] 12/16/16 Assessment/Plan - Problem List Patient Problems: All Active Problems FEVER WITH ELEVATED WBC, BUN (Acute) Hyperosmolality and hypernatremia (Acute) E87.0 Weakness (Acute) azotemia better (Acute) - Assessment Assessment: hypernatremia improving slowly with hypotonic fluid add free water via gt tube diet change improve diarrhea persistent hypokaklemia both renal and gi loss givenk supplement MRSA sepsis now on vanco - Plan Plan: will change fluid to d5w and just cover glucose with higher dose of insulin glucoscan coverage diarrhea will check c diff plus change feed to glucerna less hyperosmotic hopefully tolerate with less diarrhea free water added MRSA sepsis on vanco having echo looking for Bascterial vegetation Nutritional Asmnt/Malnutr-PDOC - Dietary Evaluation Malnutrition Findings (Please click <Entered> for more info): Nutritional Asmnt/Malnutrition Start: 12/18/16 14: 50 Text: Status: Complete Freq: Document 12/18/16 14:51 GSUN (Rec: 12/18/16 15:26 GSUN [email or web address]) Nutritional Asmnt/Malnutrition Patient General Information Nutritional Screening Consult Diagnosis Sepsis, sepsis shock, sacral wound stage 4, DM2, diarrhea, CKD vs PER CKD Pertinent Medical Hx/Surgical Hx HTN, bronchitis, penumonia, dementia, constipation, GERD, gastritis, anxiety, psychosis, muscle atrophy, weakness, stiffness, acute renal failure , UTI, osteoporosis Subjective Information 66 year old female from SNF. RD consult for wound. Pt noted with consistent diarrhea. Spoke to Dr. Gonzalez on the phone this AM. Current diet order per Nutren 1.0 at 40ml/hr vs Glucerna at 40ml/hr . RD called Dr. Gonzalez back for clarification at around 11 :30am, waiting for callback. RD endorsed to RN Nabila regarding enteral feeding recommendations. Plan for aggressiveh dyration noted in MD notes, also noted just cover glucose with higher dose of insulin. Observed Diabetisource running at 50ml/ hr during visit. No severe muscle/fat wasting noted. CBW 133.3lb with equipment removed . Current Diet Order/ Nutrition Support Glucerna 40ml/hr vs Nutren 1.0 40ml/hr Pertinent Medications Vitamin C, D5W, Novolog, Novolin, Culturelle, Flagyl, Vancomycin, Morphine, Zofran, Protonix Pertinent Labs 12/16: A1c 7.1H 12/18: sodium 164H, BUN 121H, creatinine 2.4H, glucose 326H Nutritional Hx/Data Height 1.63 m Height (Calculated Centimeters) 162.6 Current Weight (lbs) 60.464 kg Weight (Calculated Kilograms) 60.5 Weight (Calculated Grams) 23324.9 [place] Body Weight 120 Weight Status Approriate GI Symptoms GI Symptoms Diarrhea Difficult in: Chewing Swallowing Usual diet at home [place] Care: Jevity 1.2 at 70ml/hr x 20hrs, prostat Skin Integrity/Comment: Ruslan Lim MD note: sacral wound stage 4 Estimated Nutritional Goals Calories/Kcals/Kg IBW 120lb/54.5kg due to questionable weights obtained Kcals Calculated 1635-1980kcal (30-35kcal/kg, sepsis, skin integrity, bedridden) Protein Calculated 76-98g (1.4-1.8g/kg, renal vs sacral wound stage 4) Fluid: ml Per MD (plan for aggressive hydration) Nutritional Problem 3. Problem Problem Increased kcal andp rot needs realted to Etiology hypermetabolic state, skin integrity aeb Signs/Symptoms: sepsis, sacral wound stage 4 2. Problem Problem Altered nutrition related laboratory values related to Etiology DM aeb Signs/Symptoms: A1c 7.1, glucose >180 1. Problem Problem Altered GI function related to Etiology unknown etiology aeb Signs/Symptoms: consistent diarrhea Intervention/Recommendation Comments 1. Current diet order reads: Nutren 1.0 at 40ml/hr with comment Glucerna ( Diabetisource) at 40ml/hr, providing to meet 59% and 70%, respectively, of lower end of kcal needs. RD called Dr. Gonzalez 11:30am to clarify order, waiting for call back. Current MDs' nutrition related plan of care: aggressive hydration, resolve diarrhea. 2. Recommend Diabetisource at 60ml/hr, providing 1440ml total volume, 1728kcal to meet 100% of lower end of kcal needs, and 86g protein. OR if kept with Nutren 1.0, recommend 1 packet Prosource via tube, 1 packet Arginaid via tube, rate at 70ml/hr, prvoiding 1680ml total volume, 1680kcal, 67g protein from tube feeding. Expected Outcomes/Goals Expected Outcomes/Goals 1. Diarrhea to resolve. 2. Pt to meet 100% of estimated nutritional needs on tube feeding with tolerance.
[2016-12-19] MEDS: Pantoprazole 40 mg/Packet GT SCH (21:32)
[2016-12-20] MEDS: Albuterol/Ipratropium Neb 3 ML AERS HHN SCH ×4 (00:54→19:24)
[2016-12-20] MEDS: metroNIDAZOLE 500mg/NS 100mL 500 MG/100 ML BAG IV SCH ×3 (03:59→21:59)
[2016-12-20 05:16] LABS: HEMATOCRIT 24.6 % (35.0-45.0); HEMOGLOBIN 8.1 gm/dL (11.7-16.1); MEAN CELL VOLUME 88.3 fl (81-100); MEAN CORPUSCULAR HEMOGLOBIN 29.3 pg (27.0-31.0); MEAN CORPUSCULAR HGB CONC 33.1 pg (28.0-36.0); MEAN PLATELET VOLUME 12.2 fl; PLATELET COUNT 193 Th/cmm (150-400); RED BLOOD COUNT 2.78 Mil/cmm (3.80-5.20)
[2016-12-20 05:34] LABS: ALB/GLOB RATIO 0.7 (1.0-1.8); ALKALINE PHOSPHATASE 74 U/L (34-104); ANION GAP 9.3 (7.0-16.0); BILIRUBIN,TOTAL 0.2 mg/dL (0.3-1.0); BUN - UREA NITROGEN 62 mg/dL (7-25); BUN/CREATININE RATIO 56.4; CALCIUM SERUM 8.5 mg/dL (8.6-10.3); CARBON DIOXIDE 20.4 mEq/L (21.0-31.0); CHLORIDE 130 mEq/L (98-107); CREATININE - SERUM 1.1 mg/dL (0.6-1.2); GLUCOSE 162 mg/dL (70-105); SGOT 26 U/L (13-39); SGPT/ALT 49 U/L (7-52); SODIUM SERUM 157 mEq/L (136-145)
[2016-12-20 05:38] LABS: POTASSIUM SERUM 2.7 mEq/L (3.5-5.1)
[2016-12-20 06:24] LABS: BAND NEUTROPHILE 1 % (0-10); EOSINOPHIL 1 % (0-5); NEUTROPHILS 94 % (40-80); TOTAL CELLS COUNTED 100
[2016-12-20 06:25] LABS: PLATELET ESTIMATE ADEQUATE (NORMAL)
[2016-12-20] MEDS: INSULIN ASPART SLIDING SCALE 100 UNITS/ML UNIT SUBQ SCH ×4 (06:36→22:40)
[2016-12-20] MEDS: INSULIN HUMAN ISOPHANE (NPH) 100 UNITS/ML SUBQ SCH ×2 (06:47→16:50)
--- NOTE | 2016-12-20 08:15 | Consultation ---
Consult Note - Consult Note Service Date: 12/19/16 Referring Physician: Delfino Cagle Consult Note: PHYSICIAN Consultation Note: Date of Admission: 12/16/16 Purpose of Consultation: Chief Complaint: History of Present Illness: Patient KARRI CROWDER was admitted to location Intensive Care Unit with FEVER, SEPSIS. Past Medical History: Diagnoses SEPSIS, UNSPECIFIED ORGANISM (12/16/16) ANEMIA, UNSPECIFIED (12/16/16) TYPE 2 DIABETES MELLITUS WITH HYPERGLYCEMIA (12/16/16) DEHYDRATION (12/16/16) HYPEROSMOLALITY AND HYPERNATREMIA (12/16/16) HYPERKALEMIA (12/16/16) ESSENTIAL (PRIMARY) HYPERTENSION (12/16/16) PNEUMONIA, UNSPECIFIED ORGANISM (12/16/16) GASTRO-ESOPHAGEAL REFLUX DISEASE WITHOUT ESOPHAGITIS (12/16/16) CONSTIPATION, UNSPECIFIED (12/16/16) PRESSURE ULCER OF UNSPECIFIED SITE, UNSPECIFIED STAGE (12/16/16) AGE-RELATED OSTEOPOROSIS W/O CURRENT PATHOLOGICAL FRACTURE (12/16/16) ACUTE KIDNEY FAILURE, UNSPECIFIED (12/16/16) URINARY TRACT INFECTION, SITE NOT SPECIFIED (12/16/16) FEVER, UNSPECIFIED (12/16/16) FUNCTIONAL QUADRIPLEGIA (12/16/16) SEVERE SEPSIS WITHOUT SEPTIC SHOCK (12/16/16) DO NOT RESUSCITATE (12/16/16) BED CONFINEMENT STATUS (12/16/16) GASTROSTOMY STATUS (12/16/16) Allergies Allergy/AdvReac Type Severity Reaction Status Date / Time Penicillins [PCN] Allergy Verified 04/17/16 14:17 Vital Signs Temp 99.5 F 12/20/16 04:00 Pulse 92 12/20/16 06:57 Resp 22 12/20/16 06:57 BP 108/42 12/20/16 06:00 Pulse Ox 99 12/20/16 06:57 Intake & Output 12/19/16 12/20/16 12/20/16 18:59 06:59 18:59 Intake Total 750 1620 Output Total 1200 850 Balance -450 770 Weight (lbs) 59.874 kg 58.967 kg Intake: Intake, IV Amount 450 1320 Meropenem 1 gm In Sodium 100 100 Chloride 0.9% 100 ml @ 100 mls/hr IV Q12HR [facility] Rx#:[id number] Potassium Chloride 40 meq 1020 In Dextrose 5% 1,000 ml @ 100 mls/hr IV .[id number] DC Rx#:[id number] Vancomycin HCl 1.25 gm In 250 Sodium Chloride 0.9% 250 ml @ 165 mls/hr IV Q24HR [facility] Rx#:[id number] metroNIDAZOLE 500mg/NS 100 200 100mL 500 mg In 100 ml @ 100 mls/hr IV Q8HR DC Rx #:[id number] Other 300 300 Output: Urine 1000 750 Stool 200 100 Other: # Bowel Movements 1 Stool Characteristics Liquid Liquid Brown Brown Laboratory Results - last 24 hr 12/17/16 12/18/16 12/19/16 09:45 04:46 04:40 WBC RBC Hgb 6.8 L* D Hct MCV MCH MCHC Differential RDW Plt Count MPV Band Neutrophils % Neutrophils (Manual) Lymphocytes Eosinophils Platelet Estimate Sodium Potassium Chloride Carbon Dioxide Anion Gap BUN Creatinine Est GFR ( Amer) Est GFR (Non-Af Amer) BUN/Creatinine Ratio Glucose POC Glucose Whole Bld Lactic Acid Calcium Magnesium Iron 38 TIBC 168 L Iron Saturation 23 Unsaturated IBC 130 Total Bilirubin AST ALT Alkaline Phosphatase Ammonia Total Protein Albumin Globulin Albumin/Globulin Ratio Blood Type A POSITIVE Antibody Screen NEGATIVE Crossmatch See Detail 12/19/16 12/19/16 12/19/16 04:40 08:57 11:48 WBC RBC Hgb Hct MCV MCH MCHC Differential RDW Plt Count MPV Band Neutrophils % Neutrophils (Manual) Lymphocytes Eosinophils Platelet Estimate Sodium Potassium Chloride Carbon Dioxide Anion Gap BUN Creatinine Est GFR ( Amer) Est GFR (Non-Af Amer) BUN/Creatinine Ratio Glucose POC Glucose 205 H 181 H Whole Bld Lactic Acid Calcium Magnesium 2.2 Iron TIBC Iron Saturation Unsaturated IBC Total Bilirubin AST ALT Alkaline Phosphatase Ammonia Total Protein Albumin Globulin Albumin/Globulin Ratio Blood Type Antibody Screen Crossmatch 12/19/16 12/19/16 12/19/16 13:25 13:25 17:16 WBC RBC Hgb Hct MCV MCH MCHC Differential RDW Plt Count MPV Band Neutrophils % Neutrophils (Manual) Lymphocytes Eosinophils Platelet Estimate Sodium 155 H Potassium 2.5 L* Chloride 131 H Carbon Dioxide 18.7 L Anion Gap 7.8 BUN 76 H Creatinine 1.4 H Est GFR ( Amer) 48.5 Est GFR (Non-Af Amer) 40.1 BUN/Creatinine Ratio 54.3 Glucose 216 H POC Glucose 206 H Whole Bld Lactic Acid 1.65 Calcium 8.6 Magnesium Iron TIBC Iron Saturation Unsaturated IBC Total Bilirubin AST ALT Alkaline Phosphatase Ammonia Total Protein Albumin Globulin Albumin/Globulin Ratio Blood Type Antibody Screen Crossmatch 12/19/16 12/19/16 12/20/16 19:22 21:57 04:40 WBC RBC Hgb Hct MCV MCH MCHC Differential RDW Plt Count MPV Band Neutrophils % Neutrophils (Manual) Lymphocytes Eosinophils Platelet Estimate Sodium 157 H Potassium 2.7 L* Chloride 130 H Carbon Dioxide 20.4 L Anion Gap 9.3 BUN 62 H Creatinine 1.1 Est GFR ( Amer) > 60.0 Est GFR (Non-Af Amer) 53.0 BUN/Creatinine Ratio 56.4 Glucose 162 H POC Glucose 208 H Whole Bld Lactic Acid Calcium 8.5 L Magnesium 2.0 Iron TIBC Iron Saturation Unsaturated IBC Total Bilirubin 0.2 L AST 26 ALT 49 Alkaline Phosphatase 74 Ammonia 36 Total Protein 6.0 Albumin 2.5 L Globulin 3.5 Albumin/Globulin Ratio 0.7 L Blood Type Antibody Screen Crossmatch 12/20/16 12/20/16 04:40 04:40 WBC 13.0 H RBC 2.78 L Hgb 8.1 L Hct 24.6 L MCV 88.3 MCH 29.3 MCHC Differential 33.1 RDW 17.0 Plt Count 193 MPV 12.2 Band Neutrophils % 1 Neutrophils (Manual) 94 H Lymphocytes 4 L Eosinophils 1 Platelet Estimate ADEQUATE Sodium Potassium Chloride Carbon Dioxide Anion Gap BUN Creatinine Est GFR ( Amer) Est GFR (Non-Af Amer) BUN/Creatinine Ratio Glucose POC Glucose Whole Bld Lactic Acid 1.42 Calcium Magnesium Iron TIBC Iron Saturation Unsaturated IBC Total Bilirubin AST ALT Alkaline Phosphatase Ammonia Total Protein Albumin Globulin Albumin/Globulin Ratio Blood Type Antibody Screen Crossmatch Home Medication Medication Instructions Recorded Type Acetaminophen [Tylenol] 650 mg GT Q6HR PRN 04/15/16 History Acetaminophen [Tylenol Extra 1,000 mg GT Q8H PRN 09/12/16 History Strength] Acetaminophen [Tylenol] 650 mg GT DAILY 09/12/16 History Bisacodyl [Dulcolax 10 Mg Supp] 10 mg RC DAILY PRN 09/12/16 History Cran/Vitc/Mannose/Fos/Bromeln 30 ml GT DAILY 09/12/16 History [Uti-Stat 887 ml] Loperamide HCl [Anti-Diarrheal] 2 mg GT Q4H PRN 09/12/16 History Multivitamin w/ Minerals 1 tab GT DAILY 09/12/16 History [Theragran M] Mylanta 30 ml GT Q6H PRN 09/12/16 History traMADol HCl [Ultram] 50 mg GT Q6HR PRN 09/12/16 History Acetaminophen [Tylenol 650 mg GT Q6HR PRN #0 udc 09/19/16 Rx 650mg/20.3mL Suspension] Albuterol/Ipratropium Neb [Duoneb 3 ml HHN Q6HRT #0 aers 09/19/16 Rx Neb] Ascorbic Acid [Vitamin C] 500 mg GT DAILY #0 udc 09/19/16 Rx Balsam [place] Oil [Venelex] 1 appl TP DAILY #0 appl 09/19/16 Rx Hydrocodone/APAP 5mg/325mg [[place] 1 tab GT Q4H PRN #0 tab 09/19/16 Rx 5mg/325mg] Lactobacillus Rhamnosus 1 each GT Q12H #0 cap.sprink 09/19/16 Rx [Culturelle] Loperamide [Imodium 1mg/5mL 2 mg GT Q4H PRN #0 ud 09/19/16 Rx Suspension] Lorazepam [Ativan] 0.5 mg GT Q6H PRN #0 tab 09/19/16 Rx Magnesium Hydroxide [Milk of 30 ml GT HS PRN #0 ud 09/19/16 Rx Magnesia] Multivitamin w/ Minerals 1 tab GT DAILY #0 tab 09/19/16 Rx [Theragran M] Pantoprazole [Protonix] 40 mg GT Q24H #0 pkt 09/19/16 Rx guaiFENesin [Robitussin] 200 mg GT Q4HR PRN #0 ud 09/19/16 Rx Current Medications Generic Name Dose Route Start Last Admin Trade Name Freq PRN Reason Stop Dose Admin Acetaminophen 650 mg 12/16/16 21:16 12/20/16 03:55 Tylenol 650mg/20.3ml Suspension GT 02/14/17 21:15 650 mg Q6HR PRN Administration Pain or Fever >101 Acetaminophen/Hydrocodone Bitart 1 tab 12/16/16 21:16 [place] 5mg/325mg GT 02/14/17 21:15 Q4H PRN Pain (Severe) Albuterol Sulfate 2.5 mg 12/16/16 21:20 Albuterol 2.5mg/3ml Neb Ud N 02/14/17 21:19 Q2HRT PRN Shortness of Breath or Wheeze Albuterol/Ipratropium 3 ml 12/17/16 01:00 12/20/16 06:57 Duoneb Neb N 02/15/17 00:59 3 ml Q6HRT DC Administration Ascorbic Acid 500 mg 12/17/16 09:00 12/19/16 10:34 Vitamin C GT 02/15/17 08:59 500 mg DAILY DC Administration Bisacodyl 10 mg 12/16/16 21:16 Dulcolax 10 Mg Supp RC 02/14/17 21:15 DAILY PRN IF MOM INEFFECTIVE Clonidine HCl 0.1 mg 12/16/16 21:20 Catapres PO 02/14/17 21:19 Q6H PRN SBP GREATER THAN 160 Guaifenesin 200 mg 12/16/16 21:20 Robitussin PO 02/14/17 21:19 Q4HR PRN Cough or Congestion Meropenem 1 gm/ Sodium 100 mls @ 100 mls/hr 12/18/16 13:00 12/19/16 22:32 Chloride IV 02/16/17 12:59 Infused Q12HR DC Infusion Metronidazole 500 mg in 100 mls @ 100 mls/hr 12/18/16 14:00 12/20/16 04:59 Flagyl IV 02/16/17 13:59 Infused Q8HR DC Infusion Vancomycin HCl 1.25 gm/ Sodium 250 mls @ 165 mls/hr 12/19/16 10:00 12/19/16 14:30 Chloride IV 02/17/17 09:59 Infused Q24HR DC Infusion Potassium Chloride 40 meq/ 1,020 mls @ 100 mls/hr 12/19/16 15:42 12/20/16 06: 55 Dextrose IV 02/17/17 15:41 100 mls/hr .[id number] DC Administration Insulin Aspart 0 units 12/17/16 21:00 12/20/16 06:36 Novolog Insulin Sliding Scale SUBQ 02/15/17 20:59 Not Given ACHS DC Protocol Insulin Human NPH 20 units 12/18/16 07:30 12/20/16 06:47 Novolin N SUBQ 02/16/17 07:29 20 units BIDAC DC Administration Protocol Ipratropium [place] 0.5 mg 12/16/16 21:20 Atrovent Neb 0.5mg/2.5ml IH 02/14/17 21:19 Q2HRT PRN Shortness of Breath or Wheeze Lactobacillus Rhamnosus 1 each 12/16/16 21:30 12/19/16 21:32 Culturelle GT 02/14/17 21:29 1 each Q12H DC Administration Loperamide HCl 2 mg 12/16/16 21:16 Imodium 1mg/5ml Suspension GT 02/14/17 21:15 Q4H PRN Diarrhea Lorazepam 0.5 mg 12/16/16 21:16 12/18/16 23:53 Ativan GT 02/14/17 21:15 0.5 mg Q6H PRN Administration Anxiety Protocol Midodrine 5 mg 12/19/16 21:00 12/19/16 21:32 Proamatine PO 02/17/17 20:59 5 mg TID DC Administration Miscellaneous 1 12/17/16 15:44 Probiotic Screen 02/15/17 15:43 PRN PRN PROTOCOL Miscellaneous 1 12/18/16 13:00 Vancomycin Iv Per Pharmacy 02/16/17 12:59 DAILY DC Morphine Sulfate 2 mg 12/18/16 10:58 12/18/16 23:15 Morphine IVP 02/16/17 10:57 2 mg Q4H PRN Administration Severe Pain Ondansetron HCl 4 mg 12/16/16 21:20 12/17/16 12:53 Zofran IV 02/14/17 21:19 4 mg Q8H PRN Administration Nausea / Vomiting Pantoprazole Sodium 40 mg 12/16/16 21:30 12/19/16 21:32 Protonix GT 02/14/17 21:29 40 mg Q24H DC Administration Review of Systems: A 12 point ROS was reviewed with the pertinent positive and negatives noted in the HPI. Social History Smoking Status Smoker, status unknown Family Medical History Family Medical History Start: 12/16/16 20: 37 Freq: ONCE Status: Active Document 12/16/16 20:37 JONATAN (Rec: 12/16/16 22:52 JONATAN [id number]) Family Medical History Maternal History Unknown Yes Living Status Physical Exam: General: Alert and Oriented x3, No Acute Distress HEENT: EOMI Bilaterally, PERRLA Bilaterally, Head is normocephalic, atraumatic on inspection. Cardio: +S1/S2 Auscultated, RRR, no murmurs/rubs/gallops noted Respiratory: Clear to Auscultate Bilaterally Abdominal: Soft, Nondistended, Nontender to palpation x 4 quadrants Genital/Urinary: Extremities: No Edema noted in the lower extremities Neurological: Cranial Nerves II-XII intact bilaterally, Gait Steady, No Focal Deficits noted. Assessment/Plan: patient has stage 4 sacral decubitus ulcer, incontinent of loose stools, non-verbal. Recommendation: diverting colostomy and excisional debridement of ulcer and applilcation of wound vac. Will need consent from conservator Signed, Regulo Arroyo [id number]
[2016-12-20] MEDS: Meropenem 1 GM in Sodium Chloride 0.9% 100 ML IV SCH ×2 (09:21→22:18)
[2016-12-20] MEDS: Lactobacillus Rhamnosus 10 Billion CFU Capsule GT SCH ×2 (09:22→22:17)
[2016-12-20] MEDS: Multivitamin w/ Minerals Tab GT SCH (09:23)
[2016-12-20] MEDS: Ascorbic Acid 500 mg/5 mL UDC GT SCH (09:24)
[2016-12-20] MEDS: Hydrocodone/APAP 5mg/325mg Tab GT PRN ×2 (09:24→14:02)
[2016-12-20] MEDS: Venelex 60gm Tube TP SCH (09:41)
--- NOTE | 2016-12-20 10:20 | Diagnostic Imaging Report ---
Radionuclide 3 phase bone scan (sacral region) HISTORY: Osteomyelitis 23.0 mCi technetium HDP was used in the exam. Initial perfusion and subsequent blood pool and delayed images were obtained. The initial perfusion and blood pool images are of little diagnostic value due to difficulty in patient positioning and cooperation. Delayed images do not demonstrate obvious focal increased activity in the sacral area. IMPRESSION: 1. Extremely limited exam due to difficulty in patient cooperation and positioning. 2. No obvious focal increased activity in the region of the sacrum. No obvious scintigraphic evidence of osteomyelitis.
[2016-12-20] MEDS: KCL 20mEq/100mL Premix 20 MEQ/100 ML PIGGYBACK IV SCH ×2 (10:38→14:09)
[2016-12-20] MEDS: Potassium Chloride Elixir 20 mEq /15 mL UDC GT SCH ×2 (10:38→16:50)
--- NOTE | 2016-12-20 12:35 | Internal Medicine Prog Note ---
Internal Medicine Subjective - Subjective Service Date: 12/20/16 Patient is:: awake, non-verbal, non-interactive, arousable, in bed, denies any new complaints Patient Complaints of:: congestion, cough, bloated, SOB Per staff patient has:: no adverse event, no episodes of fall, tolerating meds Internal Medicine Objective - Results Result Diagrams: 12/20/16 04:40 12/20/16 04:40 Recent Labs: Laboratory Last Values WBC 13.0 Th/cmm (4.8-10.8) H 12/20/16 04:40 RBC 2.78 Mil/cmm (3.80-5.20) L 12/20/16 04:40 Hgb 8.1 gm/dL (11.7-16.1) L 12/20/16 04:40 Hct 24.6 % (35.0-45.0) L 12/20/16 04:40 MCV 88.3 fl (81-100) 12/20/16 04:40 MCH 29.3 pg (27.0-31.0) 12/20/16 04:40 MCHC Differential 33.1 pg (28.0-36.0) 12/20/16 04:40 RDW 17.0 % (11.5-20.0) 12/20/16 04:40 Plt Count 193 Th/cmm (150-400) 12/20/16 04:40 MPV 12.2 fl 12/20/16 04:40 Band Neutrophils % 1 % (0-10) 12/20/16 04:40 Neutrophils (Manual) 94 % (40-80) H 12/20/16 04:40 Lymphocytes 4 % (20-50) L 12/20/16 04:40 Monocytes 2 % (2-10) 12/19/16 04:40 Eosinophils 1 % (0-5) 12/20/16 04:40 Platelet Estimate ADEQUATE (NORMAL) 12/20/16 04:40 Platelet Morphology NORMAL (NORMAL) 12/18/16 04:46 Polychromasia 1+ 12/17/16 06:36 Anisocytosis 1+ 12/18/16 04:46 RBC Morph Micro Appear ABNORMAL (NORMAL) 12/18/16 04:46 ESR > 140 mm/hr (0-30) H 12/19/16 04:40 Sodium 157 mEq/L (136-145) H 12/20/16 04:40 Potassium 2.7 mEq/L (3.5-5.1) L* 12/20/16 04:40 Chloride 130 mEq/L (98-107) H 12/20/16 04:40 Carbon Dioxide 20.4 mEq/L (21.0-31.0) L 12/20/16 04:40 Anion Gap 9.3 (7.0-16.0) 12/20/16 04:40 BUN 62 mg/dL (7-25) H 12/20/16 04:40 Creatinine 1.1 mg/dL (0.6-1.2) 12/20/16 04:40 Est GFR ( Amer) > 60.0 ml/min (>90) 12/20/16 04:40 Est GFR (Non-Af Amer) 53.0 ml/min 12/20/16 04:40 BUN/Creatinine Ratio 56.4 12/20/16 04:40 Glucose 162 mg/dL (70-105) H 12/20/16 04:40 POC Glucose 146 MG/DL (70 - 105) H 12/20/16 12:20 Hemoglobin A1c % 7.1 % (4.0-6.0) H 12/16/16 18:45 Whole Bld Lactic Acid 1.42 mmol/L (0.60-1.99) 12/20/16 04:40 Calcium 8.5 mg/dL (8.6-10.3) L 12/20/16 04:40 Magnesium 2.0 mg/dL (1.9-2.7) 12/20/16 04:40 Iron 38 ug/dL (27-139) 12/18/16 04:46 TIBC 168 ug/dL (250-450) L 12/18/16 04:46 Iron Saturation 23 % (15-55) 12/18/16 04:46 Unsaturated IBC 130 ug/dL (118-369) 12/18/16 04:46 Total Bilirubin 0.2 mg/dL (0.3-1.0) L 12/20/16 04:40 AST 26 U/L (13-39) 12/20/16 04:40 ALT 49 U/L (7-52) 12/20/16 04:40 Alkaline Phosphatase 74 U/L (34-104) 12/20/16 04:40 Ammonia 36 umol/L (16-53) 12/19/16 19:22 C-Reactive Protein 19.8 mg/dL (0.0-0.9) H 12/19/16 04:40 B-Natriuretic Peptide 385.0 pg/mL (5.0-100.0) H 12/17/16 06:36 Total Protein 6.0 gm/dL (6.0-8.3) 12/20/16 04:40 Albumin 2.5 gm/dL (3.7-5.3) L 12/20/16 04:40 Globulin 3.5 gm/dL 12/20/16 04:40 Albumin/Globulin Ratio 0.7 (1.0-1.8) L 12/20/16 04:40 TSH 1.38 uIU/ml (0.34-5.60) 12/17/16 06:36 Urine Source [place] 12/16/16 18:40 Urine Color YELLOW 12/16/16 18:40 Urine Clarity HAZY (CLEAR) 12/16/16 18:40 Urine pH >=9.0 12/16/16 18:40 Ur Specific Dawson 1.010 (1.005-1.030) 12/16/16 18:40 Urine Protein >300 mg/dL (NEGATIVE) H 12/16/16 18:40 Urine Glucose (UA) 250 mg/dL (NEGATIVE) H 12/16/16 18:40 Urine Ketones NEGATIVE mg/dL (NEGATIVE) 12/16/16 18:40 Urine Blood NEGATIVE (NEGATIVE) 12/16/16 18:40 Urine Nitrate POSITIVE (NEGATIVE) H 12/16/16 18:40 Urine Bilirubin NEGATIVE (NEGATIVE) 12/16/16 18:40 Urine Urobilinogen 0.2 E.U./dL (0.2 - 1.0) 12/16/16 18:40 Ur Leukocyte Esterase SMALL (NEGATIVE) H 12/16/16 18:40 Urine RBC 0-2 /hpf (0-5) 12/16/16 18:40 Urine WBC 50-100 /hpf (0-5) H 12/16/16 18:40 Ur Epithelial Cells FEW /lpf (FEW) 12/16/16 18:40 Triple Phos Crystals FEW /hpf (FEW) 12/16/16 18:40 Urine Bacteria MANY /hpf (NONE SEEN) 12/16/16 18:40 Random Vancomycin 27.6 ug/mL (5.0-40.0) 12/20/16 04:40 Blood Type A POSITIVE 12/17/16 09:45 Antibody Screen NEGATIVE 12/17/16 09:45 Crossmatch See Detail 12/17/16 09:45 - Physical Exam Vitals and I&O: Vital Signs Temp 99.5 F 12/20/16 04:00 Pulse 98 12/20/16 11:59 Resp 22 12/20/16 11:59 BP 108/42 12/20/16 06:00 Pulse Ox 99 12/20/16 12:00 Intake & Output 12/19/16 12/20/16 12/20/16 18:59 06:59 18:59 Intake Total 750 1620 Output Total 1200 850 Balance -450 770 Weight (lbs) 132 lb 130 lb 130 lb Intake: Intake, IV Amount 450 1320 Meropenem 1 gm In Sodium 100 100 Chloride 0.9% 100 ml @ 100 mls/hr IV Q12HR DC Rx#:[id number] Potassium Chloride 40 meq 1020 In Dextrose 5% 1,000 ml @ 100 mls/hr IV .[id number] DC Rx#:[id number] Vancomycin HCl 1.25 gm In 250 Sodium Chloride 0.9% 250 ml @ 165 mls/hr IV Q24HR DC Rx#:[id number] metroNIDAZOLE 500mg/NS 100 200 100mL 500 mg In 100 ml @ 100 mls/hr IV Q8HR DC Rx #:[id number] Other 300 300 Output: Urine 1000 750 Stool 200 100 Other: # Bowel Movements 1 Stool Characteristics Liquid Liquid Liquid Brown Brown Brown Active Medications: Current Medications Acetaminophen (Tylenol 650mg/20.3ml Suspension) 650 mg GT Q6HR PRN PRN Reason: Pain or Fever >101 Stop: 02/14/17 21:15 Last Admin: 12/20/16 03:55 Dose: 650 mg Acetaminophen/Hydrocodone Bitart ([place] 5mg/325mg) 1 tab GT Q4H PRN PRN Reason: Pain (Severe) Stop: 02/14/17 21:15 Last Admin: 12/20/16 09:24 Dose: 1 tab Albuterol Sulfate (Albuterol 2.5mg/3ml Neb Ud) 2.5 mg HHN Q2HRT PRN PRN Reason: Shortness of Breath or Wheeze Stop: 02/14/17 21:19 Albuterol/Ipratropium (Duoneb Neb) 3 ml HHN Q6HRT [facility] Stop: 02/15/17 00:59 Last Admin: 12/20/16 11:59 Dose: 3 ml Ascorbic Acid (Vitamin C) 500 mg GT DAILY [facility] Stop: 02/15/17 08:59 Last Admin: 12/20/16 09:24 Dose: 500 mg Bisacodyl (Dulcolax 10 Mg Supp) 10 mg RC DAILY PRN PRN Reason: IF MOM INEFFECTIVE Stop: 02/14/17 21:15 Clonidine HCl (Catapres) 0.1 mg PO Q6H PRN PRN Reason: SBP GREATER THAN 160 Stop: 02/14/17 21:19 Guaifenesin (Robitussin) 200 mg PO Q4HR PRN PRN Reason: Cough or Congestion Stop: 02/14/17 21:19 Meropenem 1 gm/ Sodium (Chloride) 100 mls @ 100 mls/hr IV Q12HR [facility] Stop: 02/16/17 12:59 Last Admin: 12/20/16 09:21 Dose: 100 mls/hr Metronidazole (Flagyl) 500 mg in 100 mls @ 100 mls/hr IV Q8HR [facility] Stop: 02/16/17 13:59 Last Infusion: 12/20/16 04:59 Dose: Infused Vancomycin HCl 1.25 gm/ Sodium (Chloride) 250 mls @ 165 mls/hr IV Q24HR [facility] Stop: 02/17/17 09:59 Last Admin: 12/20/16 10:31 Dose: 250 mls/hr Potassium Chloride 40 meq/ (Dextrose) 1,020 mls @ 100 mls/hr IV .[id number] [facility] Stop: 02/17/17 15:41 Last Admin: 12/20/16 06:55 Dose: 100 mls/hr Potassium Chloride (Potassium Chloride) 20 meq in 100 mls @ 50 mls/hr IV Q2H [facility] Stop: 12/20/16 13:06 Last Admin: 12/20/16 10:38 Dose: 50 mls/hr Insulin Aspart (Novolog Insulin Sliding Scale) 0 units SUBQ ACHS DC PRN Reason: Protocol Stop: 02/15/17 20:59 Last Admin: 12/20/16 12:21 Dose: Not Given Insulin Human NPH (Novolin N) 20 units SUBQ BIDAC DC PRN Reason: Protocol Stop: 02/16/17 07:29 Last Admin: 12/20/16 06:47 Dose: 20 units Ipratropium [place] (Atrovent Neb 0.5mg/2.5ml) 0.5 mg IH Q2HRT PRN PRN Reason: Shortness of Breath or Wheeze Stop: 02/14/17 21:19 Lactobacillus Rhamnosus (Culturelle) 1 each GT Q12H DC Stop: 02/14/17 21:29 Last Admin: 12/20/16 09:22 Dose: 1 each Loperamide HCl (Imodium 1mg/5ml Suspension) 2 mg GT Q4H PRN PRN Reason: Diarrhea Stop: 02/14/17 21:15 Lorazepam (Ativan) 0.5 mg GT Q6H PRN; Protocol PRN Reason: Anxiety Stop: 02/14/17 21:15 Last Admin: 12/18/16 23:53 Dose: 0.5 mg Midodrine (Proamatine) 5 mg PO TID [facility] Stop: 02/17/17 20:59 Last Admin: 12/20/16 09:22 Dose: 5 mg Miscellaneous (Probiotic Screen) 1 ea PRN PRN PRN Reason: PROTOCOL Stop: 02/15/17 15:43 Miscellaneous (Vancomycin Iv Per Pharmacy) 1 ea DAILY [facility] Stop: 02/16/17 12:59 Morphine Sulfate (Morphine) 2 mg IVP Q4H PRN PRN Reason: Severe Pain Stop: 02/16/17 10:57 Last Admin: 12/18/16 23:15 Dose: 2 mg Ondansetron HCl (Zofran) 4 mg IV Q8H PRN PRN Reason: Nausea / Vomiting Stop: 02/14/17 21:19 Last Admin: 12/17/16 12:53 Dose: 4 mg Pantoprazole Sodium (Protonix) 40 mg GT Q24H DC Stop: 02/14/17 21:29 Last Admin: 12/19/16 21:32 Dose: 40 mg Potassium Chloride (Potassium Chloride Elixir) 40 meq GT BID [facility] Stop: 12/23/16 09:59 Last Admin: 12/20/16 10:38 Dose: 40 meq General: lethargic, demented, disheveled, bilateral temporal wasting, cachectic , appears older HEENT: NC/AT Neck: Supple, No LAD Lungs: congested, rales, ronchi Cardiovascular: RRR, Normal S1, Normal S2, without murmur Abdomen: soft, non-tender, globular, +GT, positive bowel sound Extremities: excoriation, contracture, ulcers stage 4 Neurological: no change, lethargic, disorganized, unable to follow command, bedbound, spastic - Procedures Procedures: Procedures Procedure Code Date ASSISTANCE WITH RESPIRATORY VENTILATION, 24-96 HRS, CPAP [id number] 09/12/16 BLOOD TRANSFUSION SERVICE 41001 12/16/16 [place] [address] 04/15/16 IMMUNIZATION ADMIN 68127 04/15/16 INSERT PICC CATH 48145 04/15/16 INSERTION OF INFUSION DEVICE INTO R ATRIUM, PERC APPROACH [id number] 04/15/16 INTRODUCTION OF SERUM/TOX/VACCINE INTO MUSCLE, PERC APPROACH [id number] 04/15/16 POS AIRWAY PRESSURE CPAP 76630 09/12/16 TRANSFUSE NONAUT RED BLOOD CELLS IN PERIPH VEIN, PERC [id number] 12/16/16 Internal Medicine Assmt/Plan - Assessment Assessment: hypokalemia severe anemia acute renal failure severe sepsis pnm fever sad decub ulcer sp peg fuctional quad bedridden anemia Urine cx + Proteus Mirabilis MRSA blood leukocytosis lactic acidosis dmooc - Plan Plan: monitor h/h icu monitoring possible wound debridement, awaiting for consent ivf continue empiric iv abx montor glucose f/u labs in am wound care Nutritional Asmnt/Malnutr-PDOC - Dietary Evaluation Malnutrition Findings (Please click <Entered> for more info): Nutritional Asmnt/Malnutrition Start: 12/18/16 14: 50 Text: Status: Complete Freq: Document 12/18/16 14:51 GSUN (Rec: 12/18/16 15:26 [email or web address]) Nutritional Asmnt/Malnutrition Patient General Information Nutritional Screening Consult Diagnosis Sepsis, sepsis shock, sacral wound stage 4, DM2, diarrhea, CKD vs PER CKD Pertinent Medical Hx/Surgical Hx HTN, bronchitis, penumonia, dementia, constipation, GERD, gastritis, anxiety, psychosis, muscle atrophy, weakness, stiffness, acute renal failure , UTI, osteoporosis Subjective Information 66 year old female from SNF. RD consult for wound. Pt noted with consistent diarrhea. Spoke to Dr. Gonzalez on the phone this AM. Current diet order per Nutren 1.0 at 40ml/hr vs Glucerna at 40ml/hr . RD called Dr. Gonzalez back for clarification at around 11 :30am, waiting for callback. RD endorsed to RN Nabila regarding enteral feeding recommendations. Plan for aggressiveh dyration noted in MD notes, also noted just cover glucose with higher dose of insulin. Observed Diabetisource running at 50ml/ hr during visit. No severe muscle/fat wasting noted. CBW 133.3lb with equipment removed . Current Diet Order/ Nutrition Support Glucerna 40ml/hr vs Nutren 1.0 40ml/hr Pertinent Medications Vitamin C, D5W, Novolog, Novolin, Culturelle, Flagyl, Vancomycin, Morphine, Zofran, Protonix Pertinent Labs 12/16: A1c 7.1H 12/18: sodium 164H, BUN 121H, creatinine 2.4H, glucose 326H Nutritional Hx/Data Height 5 ft 4 in Height (Calculated Centimeters) 162.6 Current Weight (lbs) 133 lb 4.8 oz Weight (Calculated Kilograms) 60.5 Weight (Calculated Grams) 49841.9 [place] Body Weight 120 Weight Status Approriate GI Symptoms GI Symptoms Diarrhea Difficult in: Chewing Swallowing Usual diet at home [place] Care: Jevity 1.2 at 70ml/hr x 20hrs, prostat Skin Integrity/Comment: Ruslan Oro. note: sacral wound stage 4 Estimated Nutritional Goals Calories/Kcals/Kg IBW 120lb/54.5kg due to questionable weights obtained Kcals Calculated 1635-1980kcal (30-35kcal/kg, sepsis, skin integrity, bedridden) Protein Calculated 76-98g (1.4-1.8g/kg, renal vs sacral wound stage 4) Fluid: ml Per (plan for aggressive hydration) Nutritional Problem 3. Problem Problem Increased kcal andp rot needs realted to Etiology hypermetabolic state, skin integrity aeb Signs/Symptoms: sepsis, sacral wound stage 4 2. Problem Problem Altered nutrition related laboratory values related to Etiology DM aeb Signs/Symptoms: A1c 7.1, glucose >180 1. Problem Problem Altered GI function related to Etiology unknown etiology aeb Signs/Symptoms: consistent diarrhea Intervention/Recommendation Comments 1. Current diet order reads: Nutren 1.0 at 40ml/hr with comment Glucerna ( Diabetisource) at 40ml/hr, providing to meet 59% and 70%, respectively, of lower end of kcal needs. RD called Dr. Gonzalez 11:30am to clarify order, waiting for call back. Current MDs' nutrition related plan of care: aggressive hydration, resolve diarrhea. 2. Recommend Diabetisource at 60ml/hr, providing 1440ml total volume, 1728kcal to meet 100% of lower end of kcal needs, and 86g protein. OR if kept with Nutren 1.0, recommend 1 packet Prosource via tube, 1 packet Arginaid via tube, rate at 70ml/hr, prvoiding 1680ml total volume, 1680kcal, 67g protein from tube feeding. Expected Outcomes/Goals Expected Outcomes/Goals 1. Diarrhea to resolve. 2. Pt to meet 100% of estimated nutritional needs on tube feeding with tolerance.
--- NOTE | 2016-12-20 14:34 | Diagnostic Imaging Report ---
Portable chest x-ray HISTORY: Shortness of breath The heart size is difficult to assess with portable technique in a poor inspiration. Allowing for a poor inspiration, no acute focal pulmonary processes. No hilar or mediastinal abnormalities. Severe arthritic changes noted about the shoulder regions bilaterally. Degenerative changes noted throughout the spine. IMPRESSION: 1. Allowing for a poor inspiration, no acute focal pulmonary processes
--- NOTE | 2016-12-20 16:26 | Cardiology ---
Cardiology Report - Cardiology Cardiology: Date of Service: 12/19/[address] Cagle M-MODE ECHOCARDIOLGRAM: Mitral valve normal left ventricle hypertrophy ejection fraction 60% left Atrium normal aortic root normal aortic leaflets normal CONCLUSION: Hypertrophy left ventricle ejection fraction 60% 2D ECHO: Long axis hypertrophy left ventricle ejection fraction 60% mitral valve normal left atrium normal aortic root normal aortic leaflets normal Short axis mitral valve normal aortic valve normal Apical 4 chamber left ventricle hypertrophy ejection fraction 60% left Atrium normal right ventricle normal right atrium normal CONCLUSION: Hypertrophy left ventricle ejection fraction 60% DOPPLER: Trace tricuspid regurgitation CONCLUSION: Hypertrophy left ventricle ejection fraction 60% trace tricuspid regurgitation and right ventricular systolic pressure 25 mmHg
--- NOTE | 2016-12-20 17:32 | Infectious Disease Prog Note ---
Infectious Disease Subjective - Review of Systems Service Date: 12/20/16 Subjective: patient remains confused. She continues to have diarrhea, and has rectal tube in place. Febrile today. Infectious Disease Objective - Results Result Diagrams: 12/20/16 04:40 12/20/16 04:40 Recent Labs: Laboratory Last Values WBC 13.0 Th/cmm (4.8-10.8) H 12/20/16 04:40 RBC 2.78 Mil/cmm (3.80-5.20) L 12/20/16 04:40 Hgb 8.1 gm/dL (11.7-16.1) L 12/20/16 04:40 Hct 24.6 % (35.0-45.0) L 12/20/16 04:40 MCV 88.3 fl (81-100) 12/20/16 04:40 MCH 29.3 pg (27.0-31.0) 12/20/16 04:40 MCHC Differential 33.1 pg (28.0-36.0) 12/20/16 04:40 RDW 17.0 % (11.5-20.0) 12/20/16 04:40 Plt Count 193 Th/cmm (150-400) 12/20/16 04:40 MPV 12.2 fl 12/20/16 04:40 Band Neutrophils % 1 % (0-10) 12/20/16 04:40 Neutrophils (Manual) 94 % (40-80) H 12/20/16 04:40 Lymphocytes 4 % (20-50) L 12/20/16 04:40 Monocytes 2 % (2-10) 12/19/16 04:40 Eosinophils 1 % (0-5) 12/20/16 04:40 Platelet Estimate ADEQUATE (NORMAL) 12/20/16 04:40 Platelet Morphology NORMAL (NORMAL) 12/18/16 04:46 Polychromasia 1+ 12/17/16 06:36 Anisocytosis 1+ 12/18/16 04:46 RBC Morph Micro Appear ABNORMAL (NORMAL) 12/18/16 04:46 ESR > 140 mm/hr (0-30) H 12/19/16 04:40 Sodium 157 mEq/L (136-145) H 12/20/16 04:40 Potassium 2.7 mEq/L (3.5-5.1) L* 12/20/16 04:40 Chloride 130 mEq/L (98-107) H 12/20/16 04:40 Carbon Dioxide 20.4 mEq/L (21.0-31.0) L 12/20/16 04:40 Anion Gap 9.3 (7.0-16.0) 12/20/16 04:40 BUN 62 mg/dL (7-25) H 12/20/16 04:40 Creatinine 1.1 mg/dL (0.6-1.2) 12/20/16 04:40 Est GFR ( Amer) > 60.0 ml/min (>90) 12/20/16 04:40 Est GFR (Non-Af Amer) 53.0 ml/min 12/20/16 04:40 BUN/Creatinine Ratio 56.4 12/20/16 04:40 Glucose 162 mg/dL (70-105) H 12/20/16 04:40 POC Glucose 155 MG/DL (70 - 105) H 12/20/16 16:46 Hemoglobin A1c % 7.1 % (4.0-6.0) H 12/16/16 18:45 Whole Bld Lactic Acid 1.42 mmol/L (0.60-1.99) 12/20/16 04:40 Calcium 8.5 mg/dL (8.6-10.3) L 12/20/16 04:40 Magnesium 2.0 mg/dL (1.9-2.7) 12/20/16 04:40 Iron 38 ug/dL (27-139) 12/18/16 04:46 TIBC 168 ug/dL (250-450) L 12/18/16 04:46 Iron Saturation 23 % (15-55) 12/18/16 04:46 Unsaturated IBC 130 ug/dL (118-369) 12/18/16 04:46 Total Bilirubin 0.2 mg/dL (0.3-1.0) L 12/20/16 04:40 AST 26 U/L (13-39) 12/20/16 04:40 ALT 49 U/L (7-52) 12/20/16 04:40 Alkaline Phosphatase 74 U/L (34-104) 12/20/16 04:40 Ammonia 36 umol/L (16-53) 12/19/16 19:22 C-Reactive Protein 19.8 mg/dL (0.0-0.9) H 12/19/16 04:40 B-Natriuretic Peptide 385.0 pg/mL (5.0-100.0) H 12/17/16 06:36 Total Protein 6.0 gm/dL (6.0-8.3) 12/20/16 04:40 Albumin 2.5 gm/dL (3.7-5.3) L 12/20/16 04:40 Globulin 3.5 gm/dL 12/20/16 04:40 Albumin/Globulin Ratio 0.7 (1.0-1.8) L 12/20/16 04:40 TSH 1.38 uIU/ml (0.34-5.60) 12/17/16 06:36 Urine Source [place] 12/16/16 18:40 Urine Color YELLOW 12/16/16 18:40 Urine Clarity HAZY (CLEAR) 12/16/16 18:40 Urine pH >=9.0 12/16/16 18:40 Ur Specific [place] 1.010 (1.005-1.030) 12/16/16 18:40 Urine Protein >300 mg/dL (NEGATIVE) H 12/16/16 18:40 Urine Glucose (UA) 250 mg/dL (NEGATIVE) H 12/16/16 18:40 Urine Ketones NEGATIVE mg/dL (NEGATIVE) 12/16/16 18:40 Urine Blood NEGATIVE (NEGATIVE) 12/16/16 18:40 Urine Nitrate POSITIVE (NEGATIVE) H 12/16/16 18:40 Urine Bilirubin NEGATIVE (NEGATIVE) 12/16/16 18:40 Urine Urobilinogen 0.2 E.U./dL (0.2 - 1.0) 12/16/16 18:40 Ur Leukocyte Esterase SMALL (NEGATIVE) H 12/16/16 18:40 Urine RBC 0-2 /hpf (0-5) 12/16/16 18:40 Urine WBC 50-100 /hpf (0-5) H 12/16/16 18:40 Ur Epithelial Cells FEW /lpf (FEW) 12/16/16 18:40 Triple Phos Crystals FEW /hpf (FEW) 12/16/16 18:40 Urine Bacteria MANY /hpf (NONE SEEN) 12/16/16 18:40 Random Vancomycin 27.6 ug/mL (5.0-40.0) 12/20/16 04:40 Blood Type A POSITIVE 12/17/16 09:45 Antibody Screen NEGATIVE 12/17/16 09:45 Crossmatch See Detail 12/17/16 09:45 - Physical Exam Vitals and I&O: Vital Signs Temp 98.9 F 12/20/16 12:00 Pulse 88 12/20/16 12:56 Resp 16 12/20/16 12:56 BP 98/43 12/20/16 12:56 Pulse Ox 100 12/20/16 12:56 Intake & Output 12/19/16 12/20/16 12/20/16 18:59 06:59 18:59 Intake Total 750 1620 938.333 Output Total 1200 850 Balance -450 770 938.333 Weight (lbs) 59.874 kg 58.967 kg 58.967 kg Intake: Intake, IV Amount 450 1320 938.333 KCL 20mEq/100mL Premix 20 100 meq In 100 ml @ 50 mls/ hr IV Q2H DC Rx#: [id number] Meropenem 1 gm In Sodium 100 100 Chloride 0.9% 100 ml @ 100 mls/hr IV Q12HR DC Rx#:[id number] Potassium Chloride 40 meq 1020 838.333 In Dextrose 5% 1,000 ml @ 100 mls/hr IV .[id number] DC Rx#:[id number] Vancomycin HCl 1.25 gm In 250 Sodium Chloride 0.9% 250 ml @ 165 mls/hr IV Q24HR DC Rx#:[id number] metroNIDAZOLE 500mg/NS 100 200 100mL 500 mg In 100 ml @ 100 mls/hr IV Q8HR DC Rx #:[id number] Other 300 300 Output: Urine 1000 750 Stool 200 100 Other: # Bowel Movements 1 Stool Characteristics Liquid Liquid Liquid Brown Brown Brown Active Medications: Current Medications Acetaminophen (Tylenol 650mg/20.3ml Suspension) 650 mg GT Q6HR PRN PRN Reason: Pain or Fever >101 Stop: 02/14/17 21:15 Last Admin: 12/20/16 03:55 Dose: 650 mg Acetaminophen/Hydrocodone Bitart ([place] 5mg/325mg) 1 tab GT Q4H PRN PRN Reason: Pain (Severe) Stop: 02/14/17 21:15 Last Admin: 12/20/16 14:02 Dose: 1 tab Albuterol Sulfate (Albuterol 2.5mg/3ml Neb Ud) 2.5 mg HHN Q2HRT PRN PRN Reason: Shortness of Breath or Wheeze Stop: 02/14/17 21:19 Albuterol/Ipratropium (Duoneb Neb) 3 ml HHN Q6HRT [facility] Stop: 02/15/17 00:59 Last Admin: 12/20/16 11:59 Dose: 3 ml Ascorbic Acid (Vitamin C) 500 mg GT DAILY [facility] Stop: 02/15/17 08:59 Last Admin: 12/20/16 09:24 Dose: 500 mg Bisacodyl (Dulcolax 10 Mg Supp) 10 mg RC DAILY PRN PRN Reason: IF MOM INEFFECTIVE Stop: 02/14/17 21:15 Clonidine HCl (Catapres) 0.1 mg PO Q6H PRN PRN Reason: SBP GREATER THAN 160 Stop: 02/14/17 21:19 Guaifenesin (Robitussin) 200 mg PO Q4HR PRN PRN Reason: Cough or Congestion Stop: 02/14/17 21:19 Meropenem 1 gm/ Sodium (Chloride) 100 mls @ 100 mls/hr IV Q12HR [facility] Stop: 02/16/17 12:59 Last Admin: 12/20/16 09:21 Dose: 100 mls/hr Metronidazole (Flagyl) 500 mg in 100 mls @ 100 mls/hr IV Q8HR [facility] Stop: 02/16/17 13:59 Last Admin: 12/20/16 14:02 Dose: 100 mls/hr Vancomycin HCl 1.25 gm/ Sodium (Chloride) 250 mls @ 165 mls/hr IV Q24HR [facility] Stop: 02/17/17 09:59 Last Admin: 12/20/16 10:31 Dose: 250 mls/hr Potassium Chloride 40 meq/ (Dextrose) 1,020 mls @ 100 mls/hr IV .[id number] [facility] Stop: 02/17/17 15:41 Last Admin: 12/20/16 15:18 Dose: 100 mls/hr Insulin Aspart (Novolog Insulin Sliding Scale) 0 units SUBQ ACHS DC PRN Reason: Protocol Stop: 02/15/17 20:59 Last Admin: 12/20/16 16:55 Dose: Not Given Insulin Human NPH (Novolin N) 20 units SUBQ BIDAC DC PRN Reason: Protocol Stop: 02/16/17 07:29 Last Admin: 12/20/16 16:50 Dose: 20 units Ipratropium [place] (Atrovent Neb 0.5mg/2.5ml) 0.5 mg IH Q2HRT PRN PRN Reason: Shortness of Breath or Wheeze Stop: 02/14/17 21:19 Lactobacillus Rhamnosus (Culturelle) 1 each GT Q12H DC Stop: 02/14/17 21:29 Last Admin: 12/20/16 09:22 Dose: 1 each Loperamide HCl (Imodium 1mg/5ml Suspension) 2 mg GT Q4H PRN PRN Reason: Diarrhea Stop: 02/14/17 21:15 Lorazepam (Ativan) 0.5 mg GT Q6H PRN; Protocol PRN Reason: Anxiety Stop: 02/14/17 21:15 Last Admin: 12/18/16 23:53 Dose: 0.5 mg Midodrine (Proamatine) 5 mg PO TID DC Stop: 02/17/17 20:59 Last Admin: 12/20/16 14:02 Dose: 5 mg Miscellaneous (Probiotic Screen) 1 [facility] PRN PRN PRN Reason: PROTOCOL Stop: 02/15/17 15:43 Miscellaneous (Vancomycin Iv Per Pharmacy) 1 [facility] DAILY DC Stop: 02/16/17 12:59 Morphine Sulfate (Morphine) 2 mg IVP Q4H PRN PRN Reason: Severe Pain Stop: 02/16/17 10:57 Last Admin: 12/18/16 23:15 Dose: 2 mg Ondansetron HCl (Zofran) 4 mg IV Q8H PRN PRN Reason: Nausea / Vomiting Stop: 02/14/17 21:19 Last Admin: 12/17/16 12:53 Dose: 4 mg Pantoprazole Sodium (Protonix) 40 mg GT Q24H DC Stop: 02/14/17 21:29 Last Admin: 12/19/16 21:32 Dose: 40 mg Potassium Chloride (Potassium Chloride Elixir) 40 meq GT BID DC Stop: 12/23/16 09:59 Last Admin: 12/20/16 16:50 Dose: 40 meq General: no acute distress, cachectic HEENT: atraumatic, EOMI, moist mucous membrane Neck: no rigid, no lines Cardiovascular: S1S2, regular Lungs: clear to percussion Abdomen: soft, no tender, no distended, no hepatomegaly, no splenomegaly Extremities: no cyanosis, no clubbing, no edema Neurological: awake, alert Skin: other (sacral wound.) - Procedures Procedures: Procedures Procedure Code Date ASSISTANCE WITH RESPIRATORY VENTILATION, 24-96 HRS, CPAP [id number] 09/12/16 BLOOD TRANSFUSION SERVICE 41643 12/16/16 [place] [address] 04/15/16 IMMUNIZATION ADMIN 11831 04/15/16 INSERT PICC CATH 16816 04/15/16 INSERTION OF INFUSION DEVICE INTO R ATRIUM, PERC APPROACH [id number] 04/15/16 INTRODUCTION OF SERUM/TOX/VACCINE INTO MUSCLE, PERC APPROACH [id number] 04/15/16 POS AIRWAY PRESSURE CPAP 49394 09/12/16 TRANSFUSE NONAUT RED BLOOD CELLS IN PERIPH VEIN, PERC [id number] 12/16/16 Infectious Disease Assmt/Plan - Problem List Patient Problems: All Active Problems FEVER WITH ELEVATED WBC, BUN (Acute) Hyperosmolality and hypernatremia (Acute) E87.0 Weakness (Acute) azotemia better (Acute) - Assessment Assessment: 1. Staphylococcus aureus, MRSA sepsis most likey source is sacral wound, clinically osteomyelitis with very elevated ESR and CRP. 2. GNR sepsis. likely source is sacral wound and UTI. 3. UTI , pyelonephritis. 4. Sepsis shock, on fluid only. 5. 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 6. DM2 7. UTI: Proteus. 8. 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 9. Diarrhea r/o CDAC. 10. Hypokalemia. 11. metabolic acidosis. 12. Dementia. Recommendations: Will continue vanco IV and meropenem. Depending on the blood and wound culture report , will finalize antibiotic therapy. sacral wound culture. 3 phase bone scan. K supplementation, check magnesium. Stool for C diff. Continue flagyl. 2 D echo. Nutritional Asmnt/Malnutr-PDOC - Dietary Evaluation Malnutrition Findings (Please click <Entered> for more info): Nutritional Asmnt/Malnutrition Start: 12/18/16 14: 50 Text: Status: Complete Freq: Document 12/18/16 14:51 GSUN (Rec: 07/10/17 15:26 UN [email or web address]) Nutritional Asmnt/Malnutrition Patient General Information Nutritional Screening Consult Diagnosis Sepsis, sepsis shock, sacral wound stage 4, DM2, diarrhea, CKD vs PER CKD Pertinent Medical Hx/Surgical Hx HTN, bronchitis, penumonia, dementia, constipation, GERD, gastritis, anxiety, psychosis, muscle atrophy, weakness, stiffness, acute renal failure , UTI, osteoporosis Subjective Information 66 year old female from SNF. RD consult for wound. Pt noted with consistent diarrhea. Spoke to Dr. Gonzalez on the phone this AM. Current diet order per Nutren 1.0 at 40ml/hr vs Glucerna at 40ml/hr . RD called Dr. Gonzalez back for clarification at around 11 :30am, waiting for callback. RD endorsed to RN Nabila regarding enteral feeding recommendations. Plan for aggressiveh dyration noted in MD notes, also noted just cover glucose with higher dose of insulin. Observed Diabetisource running at 50ml/ hr during visit. No severe muscle/fat wasting noted. CBW 133.3lb with equipment removed . Current Diet Order/ Nutrition Support Glucerna 40ml/hr vs Nutren 1.0 40ml/hr Pertinent Medications Vitamin C, D5W, Novolog, Novolin, Culturelle, Flagyl, Vancomycin, Morphine, Zofran, Protonix Pertinent Labs 12/16: A1c 7.1H 12/18: sodium 164H, BUN 121H, creatinine 2.4H, glucose 326H Nutritional Hx/Data Height 1.63 m Height (Calculated Centimeters) 162.6 Current Weight (lbs) 60.464 kg Weight (Calculated Kilograms) 60.5 Weight (Calculated Grams) 90539.9 [place] Body Weight 120 Weight Status Approriate GI Symptoms GI Symptoms Diarrhea Difficult in: Chewing Swallowing Usual diet at home [facility]: Jevity 1.2 at 70ml/hr x 20hrs, prostat Skin Integrity/Comment: Ruslan Lim MD note: sacral wound stage 4 Estimated Nutritional Goals Calories/Kcals/Kg IBW 120lb/54.5kg due to questionable weights obtained Kcals Calculated 1635-1980kcal (30-35kcal/kg, sepsis, skin integrity, bedridden) Protein Calculated 76-98g (1.4-1.8g/kg, renal vs sacral wound stage 4) Fluid: ml Per MD (plan for aggressive hydration) Nutritional Problem 3. Problem Problem Increased kcal andp rot needs realted to Etiology hypermetabolic state, skin integrity aeb Signs/Symptoms: sepsis, sacral wound stage 4 2. Problem Problem Altered nutrition related laboratory values related to Etiology DM aeb Signs/Symptoms: A1c 7.1, glucose >180 1. Problem Problem Altered GI function related to Etiology unknown etiology aeb Signs/Symptoms: consistent diarrhea Intervention/Recommendation Comments 1. Current diet order reads: Nutren 1.0 at 40ml/hr with comment Glucerna ( Diabetisource) at 40ml/hr, providing to meet 59% and 70%, respectively, of lower end of kcal needs. RD called Dr. Gonzalez 11:30am to clarify order, waiting for call back. Current MDs' nutrition related plan of care: aggressive hydration, resolve diarrhea. 2. Recommend Diabetisource at 60ml/hr, providing 1440ml total volume, 1728kcal to meet 100% of lower end of kcal needs, and 86g protein. OR if kept with Nutren 1.0, recommend 1 packet Prosource via tube, 1 packet Arginaid via tube, rate at 70ml/hr, prvoiding 1680ml total volume, 1680kcal, 67g protein from tube feeding. Expected Outcomes/Goals Expected Outcomes/Goals 1. Diarrhea to resolve. 2. Pt to meet 100% of estimated nutritional needs on tube feeding with tolerance.
--- NOTE | 2016-12-20 19:21 | General Progress Note ---
Subjective - Review of Systems Service Date: 12/20/16 Events since last encounter: consent by conservator given only for sacral debridement, not for diverting colostomy Objective - Results Result Diagrams: 12/20/16 04:40 12/20/16 04:40 Recent Labs: Laboratory Last Values WBC 13.0 Th/cmm (4.8-10.8) H 12/20/16 04:40 RBC 2.78 Mil/cmm (3.80-5.20) L 12/20/16 04:40 Hgb 8.1 gm/dL (11.7-16.1) L 12/20/16 04:40 Hct 24.6 % (35.0-45.0) L 12/20/16 04:40 MCV 88.3 fl (81-100) 12/20/16 04:40 MCH 29.3 pg (27.0-31.0) 12/20/16 04:40 MCHC Differential 33.1 pg (28.0-36.0) 12/20/16 04:40 RDW 17.0 % (11.5-20.0) 12/20/16 04:40 Plt Count 193 Th/cmm (150-400) 12/20/16 04:40 MPV 12.2 fl 12/20/16 04:40 Band Neutrophils % 1 % (0-10) 12/20/16 04:40 Neutrophils (Manual) 94 % (40-80) H 12/20/16 04:40 Lymphocytes 4 % (20-50) L 12/20/16 04:40 Monocytes 2 % (2-10) 12/19/16 04:40 Eosinophils 1 % (0-5) 12/20/16 04:40 Platelet Estimate ADEQUATE (NORMAL) 12/20/16 04:40 Platelet Morphology NORMAL (NORMAL) 12/18/16 04:46 Polychromasia 1+ 12/17/16 06:36 Anisocytosis 1+ 12/18/16 04:46 RBC Morph Micro Appear ABNORMAL (NORMAL) 12/18/16 04:46 ESR > 140 mm/hr (0-30) H 12/19/16 04:40 Sodium 157 mEq/L (136-145) H 12/20/16 04:40 Potassium 2.7 mEq/L (3.5-5.1) L* 12/20/16 04:40 Chloride 130 mEq/L (98-107) H 12/20/16 04:40 Carbon Dioxide 20.4 mEq/L (21.0-31.0) L 12/20/16 04:40 Anion Gap 9.3 (7.0-16.0) 12/20/16 04:40 BUN 62 mg/dL (7-25) H 12/20/16 04:40 Creatinine 1.1 mg/dL (0.6-1.2) 12/20/16 04:40 Est GFR ( Amer) > 60.0 ml/min (>90) 12/20/16 04:40 Est GFR (Non-Af Amer) 53.0 ml/min 12/20/16 04:40 BUN/Creatinine Ratio 56.4 12/20/16 04:40 Glucose 162 mg/dL (70-105) H 12/20/16 04:40 POC Glucose 155 MG/DL (70 - 105) H 12/20/16 16:46 Hemoglobin A1c % 7.1 % (4.0-6.0) H 12/16/16 18:45 Whole Bld Lactic Acid 1.42 mmol/L (0.60-1.99) 12/20/16 04:40 Calcium 8.5 mg/dL (8.6-10.3) L 12/20/16 04:40 Magnesium 2.0 mg/dL (1.9-2.7) 12/20/16 04:40 Iron 38 ug/dL (27-139) 12/18/16 04:46 TIBC 168 ug/dL (250-450) L 12/18/16 04:46 Iron Saturation 23 % (15-55) 12/18/16 04:46 Unsaturated IBC 130 ug/dL (118-369) 12/18/16 04:46 Total Bilirubin 0.2 mg/dL (0.3-1.0) L 12/20/16 04:40 AST 26 U/L (13-39) 12/20/16 04:40 ALT 49 U/L (7-52) 12/20/16 04:40 Alkaline Phosphatase 74 U/L (34-104) 12/20/16 04:40 Ammonia 36 umol/L (16-53) 12/19/16 19:22 C-Reactive Protein 19.8 mg/dL (0.0-0.9) H 12/19/16 04:40 B-Natriuretic Peptide 385.0 pg/mL (5.0-100.0) H 12/17/16 06:36 Total Protein 6.0 gm/dL (6.0-8.3) 12/20/16 04:40 Albumin 2.5 gm/dL (3.7-5.3) L 12/20/16 04:40 Globulin 3.5 gm/dL 12/20/16 04:40 Albumin/Globulin Ratio 0.7 (1.0-1.8) L 12/20/16 04:40 TSH 1.38 uIU/ml (0.34-5.60) 12/17/16 06:36 Urine Source [place] 12/16/16 18:40 Urine Color YELLOW 12/16/16 18:40 Urine Clarity HAZY (CLEAR) 12/16/16 18:40 Urine pH >=9.0 12/16/16 18:40 Ur Specific [place] 1.010 (1.005-1.030) 12/16/16 18:40 Urine Protein >300 mg/dL (NEGATIVE) H 12/16/16 18:40 Urine Glucose (UA) 250 mg/dL (NEGATIVE) H 12/16/16 18:40 Urine Ketones NEGATIVE mg/dL (NEGATIVE) 12/16/16 18:40 Urine Blood NEGATIVE (NEGATIVE) 12/16/16 18:40 Urine Nitrate POSITIVE (NEGATIVE) H 12/16/16 18:40 Urine Bilirubin NEGATIVE (NEGATIVE) 12/16/16 18:40 Urine Urobilinogen 0.2 E.U./dL (0.2 - 1.0) 12/16/16 18:40 Ur Leukocyte Esterase SMALL (NEGATIVE) H 12/16/16 18:40 Urine RBC 0-2 /hpf (0-5) 12/16/16 18:40 Urine WBC 50-100 /hpf (0-5) H 12/16/16 18:40 Ur Epithelial Cells FEW /lpf (FEW) 12/16/16 18:40 Triple Phos Crystals FEW /hpf (FEW) 12/16/16 18:40 Urine Bacteria MANY /hpf (NONE SEEN) 12/16/16 18:40 Random Vancomycin 27.6 ug/mL (5.0-40.0) 12/20/16 04:40 Blood Type A POSITIVE 12/17/16 09:45 Antibody Screen NEGATIVE 12/17/16 09:45 Crossmatch See Detail 12/17/16 09:45 - Physical Exam Vitals and I&O: Vital Signs Temp 99.8 F 12/20/16 16:00 Pulse 102 12/20/16 18:00 Resp 18 12/20/16 18:00 BP 109/52 12/20/16 18:00 Pulse Ox 99 12/20/16 18:00 Intake & Output 12/20/16 12/20/16 12/21/16 06:59 18:59 06:59 Intake Total 1620 938.333 Output Total 850 Balance 770 938.333 Weight (lbs) 58.967 kg 58.967 kg Intake: Intake, IV Amount 1320 938.333 KCL 20mEq/100mL Premix 20 100 meq In 100 ml @ 50 mls/ hr IV Q2H DC Rx#: [id number] Meropenem 1 gm In Sodium 100 Chloride 0.9% 100 ml @ 100 mls/hr IV Q12HR DC Rx#:[id number] Potassium Chloride 40 meq 1020 838.333 In Dextrose 5% 1,000 ml @ 100 mls/hr IV .[id number] DC Rx#:[id number] metroNIDAZOLE 500mg/NS 200 100mL 500 mg In 100 ml @ 100 mls/hr IV Q8HR DC Rx #:[id number] Other 300 Output: Urine 750 Stool 100 Other: Stool Characteristics Liquid Liquid Brown Brown Active Medications: Current Medications Acetaminophen (Tylenol 650mg/20.3ml Suspension) 650 mg GT Q6HR PRN PRN Reason: Pain or Fever >101 Stop: 02/14/17 21:15 Last Admin: 12/20/16 03:55 Dose: 650 mg Acetaminophen/Hydrocodone Bitart ([place] 5mg/325mg) 1 tab GT Q4H PRN PRN Reason: Pain (Severe) Stop: 02/14/17 21:15 Last Admin: 12/20/16 14:02 Dose: 1 tab Albuterol Sulfate (Albuterol 2.5mg/3ml Neb Ud) 2.5 mg HHN Q2HRT PRN PRN Reason: Shortness of Breath or Wheeze Stop: 02/14/17 21:19 Albuterol/Ipratropium (Duoneb Neb) 3 ml HHN Q6HRT [facility] Stop: 02/15/17 00:59 Last Admin: 12/20/16 11:59 Dose: 3 ml Ascorbic Acid (Vitamin C) 500 mg GT DAILY [facility] Stop: 02/15/17 08:59 Last Admin: 12/20/16 09:24 Dose: 500 mg Bisacodyl (Dulcolax 10 Mg Supp) 10 mg RC DAILY PRN PRN Reason: IF MOM INEFFECTIVE Stop: 02/14/17 21:15 Clonidine HCl (Catapres) 0.1 mg PO Q6H PRN PRN Reason: SBP GREATER THAN 160 Stop: 02/14/17 21:19 Guaifenesin (Robitussin) 200 mg PO Q4HR PRN PRN Reason: Cough or Congestion Stop: 02/14/17 21:19 Meropenem 1 gm/ Sodium (Chloride) 100 mls @ 100 mls/hr IV Q12HR [facility] Stop: 02/16/17 12:59 Last Admin: 12/20/16 09:21 Dose: 100 mls/hr Metronidazole (Flagyl) 500 mg in 100 mls @ 100 mls/hr IV Q8HR [facility] Stop: 02/16/17 13:59 Last Admin: 12/20/16 14:02 Dose: 100 mls/hr Vancomycin HCl 1.25 gm/ Sodium (Chloride) 250 mls @ 165 mls/hr IV Q24HR [facility] Stop: 02/17/17 09:59 Last Admin: 12/20/16 10:31 Dose: 250 mls/hr Potassium Chloride 40 meq/ (Dextrose) 1,020 mls @ 100 mls/hr IV .[id number] [facility] Stop: 02/17/17 15:41 Last Admin: 12/20/16 15:18 Dose: 100 mls/hr Insulin Aspart (Novolog Insulin Sliding Scale) 0 units SUBQ ACHS DC PRN Reason: Protocol Stop: 02/15/17 20:59 Last Admin: 12/20/16 16:55 Dose: Not Given Insulin Human NPH (Novolin N) 20 units SUBQ BIDAC DC PRN Reason: Protocol Stop: 02/16/17 07:29 Last Admin: 12/20/16 16:50 Dose: 20 units Ipratropium [place] (Atrovent Neb 0.5mg/2.5ml) 0.5 mg IH Q2HRT PRN PRN Reason: Shortness of Breath or Wheeze Stop: 02/14/17 21:19 Lactobacillus Rhamnosus (Culturelle) 1 each GT Q12H DC Stop: 02/14/17 21:29 Last Admin: 12/20/16 09:22 Dose: 1 each Loperamide HCl (Imodium 1mg/5ml Suspension) 2 mg GT Q4H PRN PRN Reason: Diarrhea Stop: 02/14/17 21:15 Lorazepam (Ativan) 0.5 mg GT Q6H PRN; Protocol PRN Reason: Anxiety Stop: 02/14/17 21:15 Last Admin: 12/18/16 23:53 Dose: 0.5 mg Midodrine (Proamatine) 5 mg PO TID DC Stop: 02/17/17 20:59 Last Admin: 12/20/16 14:02 Dose: 5 mg Miscellaneous (Probiotic Screen) 1 ea PRN PRN PRN Reason: PROTOCOL Stop: 02/15/17 15:43 Miscellaneous (Vancomycin Iv Per Pharmacy) 1 ea DAILY DC Stop: 02/16/17 12:59 Morphine Sulfate (Morphine) 2 mg IVP Q4H PRN PRN Reason: Severe Pain Stop: 02/16/17 10:57 Last Admin: 12/18/16 23:15 Dose: 2 mg Ondansetron HCl (Zofran) 4 mg IV Q8H PRN PRN Reason: Nausea / Vomiting Stop: 02/14/17 21:19 Last Admin: 12/17/16 12:53 Dose: 4 mg Pantoprazole Sodium (Protonix) 40 mg GT Q24H DC Stop: 02/14/17 21:29 Last Admin: 12/19/16 21:32 Dose: 40 mg Potassium Chloride (Potassium Chloride Elixir) 40 meq GT BID DC Stop: 12/23/16 09:59 Last Admin: 12/20/16 16:50 Dose: 40 meq General: Alert, No acute distress, Other (stuporous) HEENT: PERRLA Neck: Supple Cardiovascular: Regular rate Lungs: Clear to auscultation, Other (adeuqate air exchage) Abdomen: Bowel sounds (normal), Soft Extremities: Edema (none) - Procedures Procedures: Procedures Procedure Code Date ASSISTANCE WITH RESPIRATORY VENTILATION, 24-96 HRS, CPAP [id number] 09/12/16 BLOOD TRANSFUSION SERVICE 48379 12/16/16 [place] [address] 04/15/16 IMMUNIZATION ADMIN 20258 04/15/16 INSERT PICC CATH 94825 04/15/16 INSERTION OF INFUSION DEVICE INTO R ATRIUM, PERC APPROACH 07Z024N 04/15/16 INTRODUCTION OF SERUM/TOX/VACCINE INTO MUSCLE, PERC APPROACH [id number] 04/15/16 POS AIRWAY PRESSURE CPAP 14213 09/12/16 TRANSFUSE NONAUT RED BLOOD CELLS IN PERIPH VEIN, PERC 34120O3 12/16/16 Assessment/Plan - Problem List Patient Problems: All Active Problems FEVER WITH ELEVATED WBC, BUN (Acute) Hyperosmolality and hypernatremia (Acute) E87.0 Weakness (Acute) azotemia better (Acute) Nutritional Asmnt/Malnutr-PDOC - Dietary Evaluation Malnutrition Findings (Please click <Entered> for more info): Nutritional Asmnt/Malnutrition Start: 12/18/16 14: 50 Text: Status: Complete Freq: Document 12/18/16 14:51 GSUN (Rec: 12/18/16 15:26 GSUN [email or web address]) Nutritional Asmnt/Malnutrition Patient General Information Nutritional Screening Consult Diagnosis Sepsis, sepsis shock, sacral wound stage 4, DM2, diarrhea, CKD vs PER CKD Pertinent Medical Hx/Surgical Hx HTN, bronchitis, penumonia, dementia, constipation, GERD, gastritis, anxiety, psychosis, muscle atrophy, weakness, stiffness, acute renal failure , UTI, osteoporosis Subjective Information 66 year old female from SNF. RD consult for wound. Pt noted with consistent diarrhea. Spoke to Dr. Gonzalez on the phone this AM. Current diet order per Nutren 1.0 at 40ml/hr vs Glucerna at 40ml/hr . RD called Dr. Gonzalez back for clarification at around 11 :30am, waiting for callback. RD endorsed to RN Nabila regarding enteral feeding recommendations. Plan for aggressiveh dyration noted in MD notes, also noted just cover glucose with higher dose of insulin. Observed Diabetisource running at 50ml/ hr during visit. No severe muscle/fat wasting noted. CBW 133.3lb with equipment removed . Current Diet Order/ Nutrition Support Glucerna 40ml/hr vs Nutren 1.0 40ml/hr Pertinent Medications Vitamin C, D5W, Novolog, Novolin, Culturelle, Flagyl, Vancomycin, Morphine, Zofran, Protonix Pertinent Labs 12/16: A1c 7.1H 12/18: sodium 164H, BUN 121H, creatinine 2.4H, glucose 326H Nutritional Hx/Data Height 1.63 m Height (Calculated Centimeters) 162.6 Current Weight (lbs) 60.464 kg Weight (Calculated Kilograms) 60.5 Weight (Calculated Grams) 20446.9 [place] Body Weight 120 Weight Status Approriate GI Symptoms GI Symptoms Diarrhea Difficult in: Chewing Swallowing Usual diet at home Dexter Care: Jevity 1.2 at 70ml/hr x 20hrs, prostat Skin Integrity/Comment: Ruslan Lim MD note: sacral wound stage 4 Estimated Nutritional Goals Calories/Kcals/Kg IBW 120lb/54.5kg due to questionable weights obtained Kcals Calculated 1635-1980kcal (30-35kcal/kg, sepsis, skin integrity, bedridden) Protein Calculated 76-98g (1.4-1.8g/kg, renal vs sacral wound stage 4) Fluid: ml Per MD (plan for aggressive hydration) Nutritional Problem 3. Problem Problem Increased kcal andp rot needs realted to Etiology hypermetabolic state, skin integrity aeb Signs/Symptoms: sepsis, sacral wound stage 4 2. Problem Problem Altered nutrition related laboratory values related to Etiology DM aeb Signs/Symptoms: A1c 7.1, glucose >180 1. Problem Problem Altered GI function related to Etiology unknown etiology aeb Signs/Symptoms: consistent diarrhea Intervention/Recommendation Comments 1. Current diet order reads: Nutren 1.0 at 40ml/hr with comment Glucerna ( Diabetisource) at 40ml/hr, providing to meet 59% and 70%, respectively, of lower end of kcal needs. RD called Dr. Gonzalez 11:30am to clarify order, waiting for call back. Current MDs' nutrition related plan of care: aggressive hydration, resolve diarrhea. 2. Recommend Diabetisource at 60ml/hr, providing 1440ml total volume, 1728kcal to meet 100% of lower end of kcal needs, and 86g protein. OR if kept with Nutren 1.0, recommend 1 packet Prosource via tube, 1 packet Arginaid via tube, rate at 70ml/hr, prvoiding 1680ml total volume, 1680kcal, 67g protein from tube feeding. Expected Outcomes/Goals Expected Outcomes/Goals 1. Diarrhea to resolve. 2. Pt to meet 100% of estimated nutritional needs on tube feeding with tolerance.
--- NOTE | 2016-12-20 19:45 | General Progress Note ---
Subjective - Review of Systems Service Date: 12/20/16 Events since last encounter: continued diarrhea watery more awake more responsive Objective - Results Result Diagrams: 12/20/16 04:40 12/20/16 04:40 Recent Labs: Laboratory Last Values WBC 13.0 Th/cmm (4.8-10.8) H 12/20/16 04:40 RBC 2.78 Mil/cmm (3.80-5.20) L 12/20/16 04:40 Hgb 8.1 gm/dL (11.7-16.1) L 12/20/16 04:40 Hct 24.6 % (35.0-45.0) L 12/20/16 04:40 MCV 88.3 fl (81-100) 12/20/16 04:40 MCH 29.3 pg (27.0-31.0) 12/20/16 04:40 MCHC Differential 33.1 pg (28.0-36.0) 12/20/16 04:40 RDW 17.0 % (11.5-20.0) 12/20/16 04:40 Plt Count 193 Th/cmm (150-400) 12/20/16 04:40 MPV 12.2 fl 12/20/16 04:40 Band Neutrophils % 1 % (0-10) 12/20/16 04:40 Neutrophils (Manual) 94 % (40-80) H 12/20/16 04:40 Lymphocytes 4 % (20-50) L 12/20/16 04:40 Monocytes 2 % (2-10) 12/19/16 04:40 Eosinophils 1 % (0-5) 12/20/16 04:40 Platelet Estimate ADEQUATE (NORMAL) 12/20/16 04:40 Platelet Morphology NORMAL (NORMAL) 12/18/16 04:46 Polychromasia 1+ 12/17/16 06:36 Anisocytosis 1+ 12/18/16 04:46 RBC Morph Micro Appear ABNORMAL (NORMAL) 12/18/16 04:46 ESR > 140 mm/hr (0-30) H 12/19/16 04:40 Sodium 157 mEq/L (136-145) H 12/20/16 04:40 Potassium 2.7 mEq/L (3.5-5.1) L* 12/20/16 04:40 Chloride 130 mEq/L (98-107) H 12/20/16 04:40 Carbon Dioxide 20.4 mEq/L (21.0-31.0) L 12/20/16 04:40 Anion Gap 9.3 (7.0-16.0) 12/20/16 04:40 BUN 62 mg/dL (7-25) H 12/20/16 04:40 Creatinine 1.1 mg/dL (0.6-1.2) 12/20/16 04:40 Est GFR ( Amer) > 60.0 ml/min (>90) 12/20/16 04:40 Est GFR (Non-Af Amer) 53.0 ml/min 12/20/16 04:40 BUN/Creatinine Ratio 56.4 12/20/16 04:40 Glucose 162 mg/dL (70-105) H 12/20/16 04:40 POC Glucose 155 MG/DL (70 - 105) H 12/20/16 16:46 Hemoglobin A1c % 7.1 % (4.0-6.0) H 12/16/16 18:45 Whole Bld Lactic Acid 1.42 mmol/L (0.60-1.99) 12/20/16 04:40 Calcium 8.5 mg/dL (8.6-10.3) L 12/20/16 04:40 Magnesium 2.0 mg/dL (1.9-2.7) 12/20/16 04:40 Iron 38 ug/dL (27-139) 12/18/16 04:46 TIBC 168 ug/dL (250-450) L 12/18/16 04:46 Iron Saturation 23 % (15-55) 12/18/16 04:46 Unsaturated IBC 130 ug/dL (118-369) 12/18/16 04:46 Total Bilirubin 0.2 mg/dL (0.3-1.0) L 12/20/16 04:40 AST 26 U/L (13-39) 12/20/16 04:40 ALT 49 U/L (7-52) 12/20/16 04:40 Alkaline Phosphatase 74 U/L (34-104) 12/20/16 04:40 Ammonia 36 umol/L (16-53) 12/19/16 19:22 C-Reactive Protein 19.8 mg/dL (0.0-0.9) H 12/19/16 04:40 B-Natriuretic Peptide 385.0 pg/mL (5.0-100.0) H 12/17/16 06:36 Total Protein 6.0 gm/dL (6.0-8.3) 12/20/16 04:40 Albumin 2.5 gm/dL (3.7-5.3) L 12/20/16 04:40 Globulin 3.5 gm/dL 12/20/16 04:40 Albumin/Globulin Ratio 0.7 (1.0-1.8) L 12/20/16 04:40 TSH 1.38 uIU/ml (0.34-5.60) 12/17/16 06:36 Urine Source [place] 12/16/16 18:40 Urine Color YELLOW 12/16/16 18:40 Urine Clarity HAZY (CLEAR) 12/16/16 18:40 Urine pH >=9.0 12/16/16 18:40 Ur Specific [place] 1.010 (1.005-1.030) 12/16/16 18:40 Urine Protein >300 mg/dL (NEGATIVE) H 12/16/16 18:40 Urine Glucose (UA) 250 mg/dL (NEGATIVE) H 12/16/16 18:40 Urine Ketones NEGATIVE mg/dL (NEGATIVE) 12/16/16 18:40 Urine Blood NEGATIVE (NEGATIVE) 12/16/16 18:40 Urine Nitrate POSITIVE (NEGATIVE) H 12/16/16 18:40 Urine Bilirubin NEGATIVE (NEGATIVE) 12/16/16 18:40 Urine Urobilinogen 0.2 E.U./dL (0.2 - 1.0) 12/16/16 18:40 Ur Leukocyte Esterase SMALL (NEGATIVE) H 12/16/16 18:40 Urine RBC 0-2 /hpf (0-5) 12/16/16 18:40 Urine WBC 50-100 /hpf (0-5) H 12/16/16 18:40 Ur Epithelial Cells FEW /lpf (FEW) 12/16/16 18:40 Triple Phos Crystals FEW /hpf (FEW) 12/16/16 18:40 Urine Bacteria MANY /hpf (NONE SEEN) 12/16/16 18:40 Random Vancomycin 27.6 ug/mL (5.0-40.0) 12/20/16 04:40 Blood Type A POSITIVE 12/17/16 09:45 Antibody Screen NEGATIVE 12/17/16 09:45 Crossmatch See Detail 12/17/16 09:45 - Physical Exam Vitals and I&O: Vital Signs Temp 99.8 F 12/20/16 16:00 Pulse 83 12/20/16 19:24 Resp 20 12/20/16 19:24 BP 109/52 12/20/16 18:00 Pulse Ox 97 12/20/16 19:24 Intake & Output 12/20/16 12/20/16 12/21/16 06:59 18:59 06:59 Intake Total 1620 938.333 Output Total 850 Balance 770 938.333 Weight (lbs) 58.967 kg 58.967 kg Intake: Intake, IV Amount 1320 938.333 KCL 20mEq/100mL Premix 20 100 meq In 100 ml @ 50 mls/ hr IV Q2H DC Rx#: [id number] Meropenem 1 gm In Sodium 100 Chloride 0.9% 100 ml @ 100 mls/hr IV Q12HR DC Rx#:[id number] Potassium Chloride 40 meq 1020 838.333 In Dextrose 5% 1,000 ml @ 100 mls/hr IV .[id number] DC Rx#:[id number] metroNIDAZOLE 500mg/NS 200 100mL 500 mg In 100 ml @ 100 mls/hr IV Q8HR DC Rx #:[id number] Other 300 Output: Urine 750 Stool 100 Other: Stool Characteristics Liquid Liquid Brown Brown Active Medications: Current Medications Acetaminophen (Tylenol 650mg/20.3ml Suspension) 650 mg GT Q6HR PRN PRN Reason: Pain or Fever >101 Stop: 02/14/17 21:15 Last Admin: 12/20/16 03:55 Dose: 650 mg Acetaminophen/Hydrocodone Bitart ([place] 5mg/325mg) 1 tab GT Q4H PRN PRN Reason: Pain (Severe) Stop: 02/14/17 21:15 Last Admin: 12/20/16 14:02 Dose: 1 tab Albuterol Sulfate (Albuterol 2.5mg/3ml Neb Ud) 2.5 mg HHN Q2HRT PRN PRN Reason: Shortness of Breath or Wheeze Stop: 02/14/17 21:19 Albuterol/Ipratropium (Duoneb Neb) 3 ml HHN Q6HRT [facility] Stop: 02/15/17 00:59 Last Admin: 12/20/16 19:24 Dose: 3 ml Ascorbic Acid (Vitamin C) 500 mg GT DAILY [facility] Stop: 02/15/17 08:59 Last Admin: 12/20/16 09:24 Dose: 500 mg Bisacodyl (Dulcolax 10 Mg Supp) 10 mg RC DAILY PRN PRN Reason: IF MOM INEFFECTIVE Stop: 02/14/17 21:15 Clonidine HCl (Catapres) 0.1 mg PO Q6H PRN PRN Reason: SBP GREATER THAN 160 Stop: 02/14/17 21:19 Guaifenesin (Robitussin) 200 mg PO Q4HR PRN PRN Reason: Cough or Congestion Stop: 02/14/17 21:19 Meropenem 1 gm/ Sodium (Chloride) 100 mls @ 100 mls/hr IV Q12HR [facility] Stop: 02/16/17 12:59 Last Admin: 12/20/16 09:21 Dose: 100 mls/hr Metronidazole (Flagyl) 500 mg in 100 mls @ 100 mls/hr IV Q8HR [facility] Stop: 02/16/17 13:59 Last Admin: 12/20/16 14:02 Dose: 100 mls/hr Vancomycin HCl 1.25 gm/ Sodium (Chloride) 250 mls @ 165 mls/hr IV Q24HR [facility] Stop: 02/17/17 09:59 Last Admin: 12/20/16 10:31 Dose: 250 mls/hr Potassium Chloride 40 meq/ (Dextrose) 1,020 mls @ 100 mls/hr IV .[id number] [facility] Stop: 02/17/17 15:41 Last Admin: 12/20/16 15:18 Dose: 100 mls/hr Insulin Aspart (Novolog Insulin Sliding Scale) 0 units SUBQ ACHS DC PRN Reason: Protocol Stop: 02/15/17 20:59 Last Admin: 12/20/16 16:55 Dose: Not Given Insulin Human NPH (Novolin N) 20 units SUBQ BIDAC DC PRN Reason: Protocol Stop: 02/16/17 07:29 Last Admin: 12/20/16 16:50 Dose: 20 units Ipratropium [place] (Atrovent Neb 0.5mg/2.5ml) 0.5 mg IH Q2HRT PRN PRN Reason: Shortness of Breath or Wheeze Stop: 02/14/17 21:19 Lactobacillus Rhamnosus (Culturelle) 1 each GT Q12H DC Stop: 02/14/17 21:29 Last Admin: 12/20/16 09:22 Dose: 1 each Loperamide HCl (Imodium 1mg/5ml Suspension) 2 mg GT Q4H PRN PRN Reason: Diarrhea Stop: 02/14/17 21:15 Lorazepam (Ativan) 0.5 mg GT Q6H PRN; Protocol PRN Reason: Anxiety Stop: 02/14/17 21:15 Last Admin: 12/18/16 23:53 Dose: 0.5 mg Midodrine (Proamatine) 5 mg PO TID DC Stop: 02/17/17 20:59 Last Admin: 12/20/16 14:02 Dose: 5 mg Miscellaneous (Probiotic Screen) 1 [facility] PRN PRN PRN Reason: PROTOCOL Stop: 02/15/17 15:43 Miscellaneous (Vancomycin Iv Per Pharmacy) 1 [facility] DAILY DC Stop: 02/16/17 12:59 Morphine Sulfate (Morphine) 2 mg IVP Q4H PRN PRN Reason: Severe Pain Stop: 02/16/17 10:57 Last Admin: 12/18/16 23:15 Dose: 2 mg Ondansetron HCl (Zofran) 4 mg IV Q8H PRN PRN Reason: Nausea / Vomiting Stop: 02/14/17 21:19 Last Admin: 12/17/16 12:53 Dose: 4 mg Pantoprazole Sodium (Protonix) 40 mg GT Q24H DC Stop: 02/14/17 21:29 Last Admin: 12/19/16 21:32 Dose: 40 mg Potassium Chloride (Potassium Chloride Elixir) 40 meq GT BID DC Stop: 12/23/16 09:59 Last Admin: 12/20/16 16:50 Dose: 40 meq General: Alert, No acute distress, Other (stuporous) HEENT: PERRLA Neck: Supple Cardiovascular: Regular rate Lungs: Clear to auscultation, Other (adeuqate air exchage) Abdomen: Bowel sounds (hyperactive), Soft, Distended (mildly) Extremities: Edema (none) - Procedures Procedures: Procedures Procedure Code Date ASSISTANCE WITH RESPIRATORY VENTILATION, 24-96 HRS, CPAP [id number] 09/12/16 BLOOD TRANSFUSION SERVICE 14544 12/16/16 [place] [id number] 04/15/16 IMMUNIZATION ADMIN 85436 04/15/16 INSERT PICC CATH [id number] 04/15/16 INSERTION OF INFUSION DEVICE INTO R ATRIUM, PERC APPROACH [id number] 04/15/16 INTRODUCTION OF SERUM/TOX/VACCINE INTO MUSCLE, PERC APPROACH [id number] 04/15/16 POS AIRWAY PRESSURE CPAP [id number] 09/12/16 TRANSFUSE NONAUT RED BLOOD CELLS IN PERIPH VEIN, PERC [id number] 12/16/16 Assessment/Plan - Problem List Patient Problems: All Active Problems MRSA (methicillin resistant Staphylococcus aureus) septicemia (Acute) A41.02 MRSA septicemia (Acute) proteus sepsis (Acute) proteus sepsis (Acute) proteus urinary tract infection (Acute) proteus urinary tract infection (Acute) FEVER WITH ELEVATED WBC, BUN (Acute) Hyperosmolality and hypernatremia (Acute) E87.0 Weakness (Acute) azotemia better (Acute) - Assessment Assessment: hypernatremia improving slowly with hypotonic fluid add free water via gt tube diet change improve diarrhea persistent hypokaklemia both renal and gi loss givenk supplement MRSA sepsis now on vanco - Plan Plan: will change fluid to d5w and just cover glucose with higher dose of insulin glucoscan coverage diarrhea will check c diff plus change feed to glucerna less hyperosmotic hopefully tolerate with less diarrhea free water added MRSA sepsis on vanco meropenem, having echo looking for Bascterial vegetation Nutritional Asmnt/Malnutr-PDOC - Dietary Evaluation Malnutrition Findings (Please click <Entered> for more info): Nutritional Asmnt/Malnutrition Start: 12/18/16 14: 50 Text: Status: Complete Freq: Document 12/18/16 14:51 GSUN (Rec: 12/18/16 15:26 [facility] Nutritional Asmnt/Malnutrition Patient General Information Nutritional Screening Consult Diagnosis Sepsis, sepsis shock, sacral wound stage 4, DM2, diarrhea, CKD vs PER CKD Pertinent Medical Hx/Surgical Hx HTN, bronchitis, penumonia, dementia, constipation, GERD, gastritis, anxiety, psychosis, muscle atrophy, weakness, stiffness, acute renal failure , UTI, osteoporosis Subjective Information 66 year old female from SNF. RD consult for wound. Pt noted with consistent diarrhea. Spoke to Dr. Gonzalez on the phone this AM. Current diet order per Nutren 1.0 at 40ml/hr vs Glucerna at 40ml/hr . RD called Dr. Gonzalez back for clarification at around 11 :30am, waiting for callback. RD endorsed to RN Nabila regarding enteral feeding recommendations. Plan for aggressiveh dyration noted in MD notes, also noted just cover glucose with higher dose of insulin. Observed Diabetisource running at 50ml/ hr during visit. No severe muscle/fat wasting noted. CBW 133.3lb with equipment removed . Current Diet Order/ Nutrition Support Glucerna 40ml/hr vs Nutren 1.0 40ml/hr Pertinent Medications Vitamin C, D5W, Novolog, Novolin, Culturelle, Flagyl, Vancomycin, Morphine, Zofran, Protonix Pertinent Labs 12/16: A1c 7.1H 12/18: sodium 164H, BUN 121H, creatinine 2.4H, glucose 326H Nutritional Hx/Data Height 1.63 m Height (Calculated Centimeters) 162.6 Current Weight (lbs) 60.464 kg Weight (Calculated Kilograms) 60.5 Weight (Calculated Grams) 68778.9 [place] Body Weight 120 Weight Status Approriate GI Symptoms GI Symptoms Diarrhea Difficult in: Chewing Swallowing Usual diet at home [place] Care: Jevity 1.2 at 70ml/hr x 20hrs, prostat Skin Integrity/Comment: Ruslan Oro. note: sacral wound stage 4 Estimated Nutritional Goals Calories/Kcals/Kg IBW 120lb/54.5kg due to questionable weights obtained Kcals Calculated 1635-1980kcal (30-35kcal/kg, sepsis, skin integrity, bedridden) Protein Calculated 76-98g (1.4-1.8g/kg, renal vs sacral wound stage 4) Fluid: ml Per (plan for aggressive hydration) Nutritional Problem 3. Problem Problem Increased kcal andp rot needs realted to Etiology hypermetabolic state, skin integrity aeb Signs/Symptoms: sepsis, sacral wound stage 4 2. Problem Problem Altered nutrition related laboratory values related to Etiology DM aeb Signs/Symptoms: A1c 7.1, glucose >180 1. Problem Problem Altered GI function related to Etiology unknown etiology aeb Signs/Symptoms: consistent diarrhea Intervention/Recommendation Comments 1. Current diet order reads: Nutren 1.0 at 40ml/hr with comment Glucerna ( Diabetisource) at 40ml/hr, providing to meet 59% and 70%, respectively, of lower end of kcal needs. RD called Dr. Gonzalez 11:30am to clarify order, waiting for call back. Current MDs' nutrition related plan of care: aggressive hydration, resolve diarrhea. 2. Recommend Diabetisource at 60ml/hr, providing 1440ml total volume, 1728kcal to meet 100% of lower end of kcal needs, and 86g protein. OR if kept with Nutren 1.0, recommend 1 packet Prosource via tube, 1 packet Arginaid via tube, rate at 70ml/hr, prvoiding 1680ml total volume, 1680kcal, 67g protein from tube feeding. Expected Outcomes/Goals Expected Outcomes/Goals 1. Diarrhea to resolve. 2. Pt to meet 100% of estimated nutritional needs on tube feeding with tolerance.
[2016-12-20] MEDS: Pantoprazole 40 mg/Packet GT SCH (22:18)
--- NOTE | 2016-12-20 23:26 | Admit Criteria Form ---
Admit Criteria Forms - Admit Criteria Diagnosis: SEVERE SEPSIS Clinical Indications for Admission to Inpatient Care (Place 'X' for any and all applicable criteria): Hospital admission is needed for appropriate care of the patient because of ANY ONE of the following: [X]I. Hemodynamic instability indicated by ANY ONE of the following(1)(2)(3)( 4)(5): []a. Vital sign abnormality not readily corrected by appropriate treatment within 12 to 24 hours indicated by ANY ONE of the following: []i) Tachycardia that persists despite appropriate treatment []ii) Hypotension that persists despite appropriate treatment []iii)Orthostatic vital sign changes that persist despite appropriate treatment [X]b. Vital sign abnormality that is severe indicated by ANY ONE of the following: [X]i.Inadequate perfusion indicated by ANY ONE of the following : [X]1) Lactic acidosis (greater than 2 mmol/L) []2) New abnormal capillary refill (greater than 3 seconds) []3) Reduced urine output []4) New altered mental status []5) Myocardial Ischemia []ii. Mean arterial pressure [A] less than 60 mm Hg []iii. Mean arterial pressure[A] less than 70 mm Hg after 30 minutes of appropriate treatment (eg, fluid resuscitation) []iv. Sustained heart rate greater than 120 beats per minute in adult []v. IV inotropic or vasopressor medication required to maintain adequate blood pressure or perfusion [X]II. Systemic or infectious condition causing severe symptoms or findings not responsive to emergency or observation care treatment (as appropriate) indicated by ANY ONE of the following: []a. Cardiac arrhythmias of immediate concern(1)(2)(3) []b. Severe endocrine disorder (eg, thyrotoxicosis, adrenal insufficiency)(4)(5) []c. Seizures (eg, new or recurrent)(6) []d. New-onset end organ failure or dysfunction as indicated by ANY ONE of the following: []i. Acute unexplained hypoxemia (eg, not from lung infection or chronic disease)(7)(8)(9) []ii. Acute renal failure as indicated by new onset of ANY ONE of the following(10)(11)(12)(13)(14): []1) 3-fold rise in serum creatinine from baseline []2) Serum creatinine greater than 4 mg/dL (354 micromoles/L) with acute rise greater than 0.5 mg/dL (44.2 micromoles/L) []3) Reduction of more than 75% in estimated glomerular filtration rate from baseline. []4) Estimated glomerular filtration rate less than 35 mL/min/1.73m2 ( 0.59 mL/sec/1.73m2) in child younger than 18 years. []5) Cessation of urine output indicated by ALL of the following: []A. Adequate volume status []B. Inadequate urine output as indicated by ANY ONE of the following: []a. Urine output less than 0.3 mL/kg/hr for 24 hours []b. Anuria (urine output less than 0.1 mL/kg/hr) for 12 hours []iii. Acute mental status changes(15) []iv.Acute hepatic failure (eg, plasma bilirubin greater than 4 mg/dL ( 68 micromoles/L), new INR greater than 2.0)(16)(17) []e. Unmanageable nausea and vomiting(18) []f. New-onset or uncontrolled central diabetes insipidus(19)(20) []g. Clinically significant dehydration(18)(21) []h. Hypoglycemia(22) []i. Acidosis (pH less than 7.35) or alkalosis (pH greater than 7.45)( 22)(23) []j. Toxic drug level that indicates need for specific monitoring or treatment(24)(25) [X]k. Severe electrolyte abnormalities indicated by ALL of the following (1)(2)(3): [X]i. Electrolytes and associated findings are not as expected for patient baseline or acceptable treatment effects. [X]ii. Severe abnormalities indicated by ANY ONE of the following: [X]1) Sodium less than 130 mEq/L (mmol/L) (new) []2) Sodium less than 135 mEq/L (mmol/L) with ANY ONE of the following: []A. Uncorrectable (to near normal or chronic baseline) after trial of outpatient and emergency treatment []B. Altered mental status []C. Seizures []D. Severe medical etiology requiring inpatient management (eg , heart failure, hypovolemia) []3) Sodium greater than 155 mEq/L (mmol/L) []4) Sodium greater than 150 mEq/L (mmol/L) with ANY ONE of the following: []A. Uncorrectable (to near normal or chronic baseline) with outpatient and emergency treatment []B. Altered mental status []C. Seizures []D. Severe medical etiology (eg, hypovolemia, diabetes insipidus) []5) Potassium less than 2.5 mEq/L (mmol/L) despite outpatient and emergency treatment []6) Potassium less than 3 mEq/L (mmol/L) with ANY ONE of the following : []A. Weakness []B. Cardiac abnormality (eg, arrhythmia, conduction disturbance ) []C. Cardiac ischemia []D. Ileus []E. Ongoing medical cause requiring inpatient management (eg, acute renal wasting or SIADH) []F. Other severe symptoms []7) Potassium greater than 6.5 mEq/L (mmol/L) []8) Potassium greater than 5 mEq/L (mmol/L) with ANY ONE of the following: []A. Uncorrectable (to near normal or chronic baseline) with outpatient and emergency treatment []B. Severe ECG findings[A] []C. Acute worsening of renal failure (creatinine greater than 2.5 mg/dL (221 micromoles/L) or significant elevation for age and size) []D. Severe weakness []E. Severe medical etiology (eg, hemolysis, infection, drug overdose) []9) Calcium less than 7 mg/dL (1.75 mmol/L) despite outpatient and emergency treatment(5) []10) Calcium less than 8 mg/dL (2 mmol/L) with significant symptoms or findings (eg, altered mental status, muscle spasms, seizures , breathing difficulty, cardiac abnormality (eg, arrhythmia or conduction disturbance))(5) []11) Calcium greater than 14 mg/dL (3.5 mmol/L)(5) []12) Calcium greater than 12 mg/dL (3 mmol/L) with ANY ONE of the following(5): []A. Uncorrectable (to near normal or chronic baseline) with outpatient and emergency treatment []B. Significant dehydration or hypovolemia as indicated by ALL of the following(3)(6)(7): []a. Not resolved with initial treatments []b. Clinically significant dehydration as indicated by ANY ONE of the following: [](1) Vomiting refractory to outpatient treatment (ie, precluding oral rehydration) [](2) Inability to drink [](3) Hypernatremia or other electrolyte abnormality unable to be corrected with outpatient and emergency treatment [](4) Failure to remain hydrated with outpatient therapy [](5) Reduced urine output [](6) Hypotension [](7) Serious cause for dehydration requiring acute hospitalization ( eg, bowel obstruction, increased intracranial pressure, infectious cause) [](8) Child with ANY ONE of the following(8): [](i) Severe abdominal tenderness [](ii) Adequate care not available at home [](iii) Severe dehydration (greater than 9% loss of body weight) []C. Significant symptoms or findings (eg, altered mental status , cardiac abnormality (eg, arrhythmia, conduction disturbance), malignant etiology requiring inpatient treatment) []13) Phosphorus less than 1 mg/dL (0.32 mmol/L) []14) Phosphorus less than 1.5 mg/dL (0.48 mmol/L) with ANY ONE of the following: []A. Patient unresponsive to outpatient and emergency treatment []B. Significant symptoms or findings (eg, weakness, altered mental status, breathing difficulty, seizures, rhabdomyolysis) []15) Phosphorus greater than 10 mg/dL (3.2 mmol/L) []16) Phosphorus greater than 4.5 mg/dL (1.45 mmol/L) (new) with ANY ONE of the following: []A. Severe medical etiology (eg, crush injury, acute renal failure) []B. Associated hypocalcemia with significant findings (eg, neurologic symptoms, altered mental status, muscle spasms, seizures, breathing difficulty, cardiac abnormality (eg, arrhythmia, conduction disturbance)) []16) Magnesium less than 1 mg/dL (0.41 mmol/L) []17) Magnesium less than 1.5 mg/dL (0.62 mmol/L) with ANY ONE of the following: []A. Patient unresponsive to outpatient and emergency treatment []B. Associated hypocalcemia with significant findings (eg, altered mental status, muscle spasms, seizures, breathing difficulty, cardiac abnormality (eg, arrhythmia, conduction disturbance)) []C. Associated hypokalemia (potassium less than 3 mEq/L (mmol/L )) with risk of arrhythmia []18) Magnesium greater than 4 mEq/L (2 mmol/L) []19) Magnesium greater than 2.5 mEq/L (1.25 mmol/L) with significant symptoms or findings (eg, weakness, altered mental status, cardiac abnormality (eg, arrhythmia, conduction disturbance), breathing difficulty, severe medical etiology (eg, renal failure, hypovolemia)) []20) Uric acid greater than 20 mg/dL (1190 micromoles/L)(9) []21) Uric acid greater than 8 mg/dL (476 micromoles/L) with significant symptoms or findings of tumor lysis syndrome (eg, creatinine greater than 1.5 times upper limit of normal, cardiac abnormality (eg, arrhythmia, conduction disturbance), seizure)(9) []III. High fever or other high-risk infection situation as indicated by ANY ONE of the following(26)(27)(28): []a. Outpatient and observation care antimicrobial treatment unavailable, not effective, or not appropriate []b. Documented bacteremia []c. Temperature greater than 104.9 degrees F (40.5 degrees C) (oral) []d. Temperature greater than 103.1 degrees F (39.5 degrees C) (oral) or less than 96.8 degrees F (36 degrees C) (rectal) that does not respond to emergency treatment and observation care []IV. High-risk febrile neutropenia[A] as indicated by ANY ONE of the following(29)(30)(31)(32): []a. Profound neutropenia[B] anticipated to extend for more than 7 days []b. Hemodynamic instability []c. Hypoxemia []d. Tachypnea []e. Altered mental status []f. New-onset abdominal pain []g. New-onset vomiting or diarrhea []h. Oral or gastrointestinal mucositis that interferes with swallowing or causes severe diarrhea []i. Focal infection (eg, cellulitis, pneumonia, central line or catheter infection, perirectal abscess) []j. Renal insufficiency (eg, GFR of less than 30 mL/min/1.73m2 (0.5 mL/sec /1.73m2)). []k. Severe liver dysfunction (transaminase levels greater than 5 times normal) []l. Platelet count less than 50,000/mm3 (50 x109/L)(33) []m. Leukemia or lymphoma induction therapy []n. Leukemia not in complete remission or with evidence of disease progression []o. Bone marrow transplant patient []p. Alemtuzumab being used for therapy []q. [employer] Supportive Care in Cancer (MASCC) Risk Index score of less than 21[C](33)(35). []V. Isolation required (eg, tuberculosis that requires isolation, Ebola infection)[D](36)(37)(38)(39)(40) []. Gangrene that requires treatment beyond emergency or observation level care(41)(42) []VII. Antitoxin administration and ongoing observation required (eg, tetanus, botulism)(43)(44) []. Suspected infection with rapid progression or severe symptoms as indicated by ANY ONE of the following(45): []a. Streptococcal or staphylococcal toxic shock(46) []b. Diphtheria(47) []c. Hantavirus(48) []d. Severe acute respiratory syndrome(8)(49) []e. Anthrax(50) []f. Ebola[D](36)(37)(38) []g. Necrotizing soft tissue infection(41)(42) []h. Plague(50) []i. Other suspected infection that requires care beyond emergency or observation level care []VII. Severe adverse drug or systemic toxin reaction as indicated by ANY ONE of the following(24): []a. Serotonin syndrome(51)(52) []b. Neuroleptic malignant syndrome(51)(52) []c. Cholinergic syndrome with severe symptoms (eg, bronchorrhea, weakness , mental status changes, seizures)(53) []d. Anticholinergic syndrome []e. Sympathetic syndrome with severe symptoms (eg, seizures, mental status changes, cardiac dysrhythmias) []f. Other severe adverse drug or systemic toxin reaction that remains after emergency or observation level care (as appropriate) []VIII. Allergic reaction with severe symptoms (not responsive to emergency or observation care treatment as appropriate), including ANY ONE of the following(54): []a. Airway edema (pharyngeal, epiglottic, or laryngeal edema) []b. Stridor []c. Respiratory failure []d. Bronchospasm []e. Hypotension []IX. Environmental emergency (not responsive to emergency or observation care treatment as appropriate) as indicated by ANY ONE of the following(55)(56): []a. Hyperthermia []b. Heat stroke []c. Heat exhaustion []d. Hypothermia (temperature less than 95 degrees F (35 degrees C) rectal) (57) []e. Electrocution(58) []X. Complications of transplanted organ (ie, not covered elsewhere)[E] indicated by ANY ONE of the following(59): []a. Acute graft rejection (or graft vs. host disease)[F] requiring inpatient management (eg, intravenous immunosuppression)(60)(61)(62)(63) []b. Acute failure of transplanted organ necessitating inpatient care (eg, cannot be managed in other setting) []c. Infection requiring inpatient management (eg, Hemodynamic instability, need for intravenous antimicrobial treatment)(64)(65) []d. Other complication of transplanted organ requiring inpatient management []XI. Systemic or Infectious Condition condition, symptom, or finding for which emergency and observation care have failed or are not considered appropriate. See General Criteria: Observation Care, General Admission Criteria or Pediatric General Admission Criteria guideline as appropriate. (Contents from SEVERE SEPSIS and SYSTEMIC OR INFECTIOUS CONDITION clinical indications for admission to inpatient care have been integrated in this form) The [facility] content created by [facility] has been revised. The portions of the content which have been revised are identified through the use of italic text or in bold and [facility] has neither reviewed nor approved the modified material. All other unmodified content is copyright [facility]. Please see references footnoted in the original [facility] edition 2016 Admit Criteria Met?: Yes
[2016-12-21] MEDS: Albuterol/Ipratropium Neb 3 ML AERS HHN SCH ×4 (00:54→19:43)
[2016-12-21] MEDS: Hydrocodone/APAP 5mg/325mg Tab GT PRN (01:59)
[2016-12-21] MEDS: metroNIDAZOLE 500mg/NS 100mL 500 MG/100 ML BAG IV SCH (06:07)
[2016-12-21] MEDS: INSULIN ASPART SLIDING SCALE 100 UNITS/ML UNIT SUBQ SCH ×4 (06:48→22:33)
[2016-12-21] MEDS: INSULIN HUMAN ISOPHANE (NPH) 100 UNITS/ML SUBQ SCH ×2 (06:49→17:00)
[2016-12-21 07:11] LABS: % BASOPHILS 0.3 % (0.0-2.0); % EOSINOPHILS 3.7 % (0.0-5.0); % LYMPHOCYTES 15.9 % (20.0-50.0); % MONOCYTES 3.8 % (2.0-10.0); % NEUTROPHILS 76.3 % (40.0-80.0); HEMATOCRIT 24.6 % (35.0-45.0); HEMOGLOBIN 8.3 gm/dL (11.7-16.1); MEAN CELL VOLUME 88.3 fl (81-100); MEAN CORPUSCULAR HEMOGLOBIN 29.6 pg (27.0-31.0); MEAN CORPUSCULAR HGB CONC 33.5 pg (28.0-36.0); MEAN PLATELET VOLUME 11.7 fl; NEUTROPHILE ABSOLUTE 9.3 Th/cmm (1.8-8.0); PLATELET COUNT 183 Th/cmm (150-400); RED BLOOD COUNT 2.79 Mil/cmm (3.80-5.20); RED CELL DISTRIBUTION WIDTH 17.5 % (11.5-20.0)
[2016-12-21 07:17] LABS: WHITE BLOOD COUNT 12.1 Th/cmm (4.8-10.8)
[2016-12-21 07:23] LABS: ALB/GLOB RATIO 0.7 (1.0-1.8); ALKALINE PHOSPHATASE 73 U/L (34-104); ANION GAP 10.2 (7.0-16.0); BILIRUBIN,TOTAL 0.3 mg/dL (0.3-1.0); BUN - UREA NITROGEN 43 mg/dL (7-25); BUN/CREATININE RATIO 53.8; CALCIUM SERUM 8.3 mg/dL (8.6-10.3); CARBON DIOXIDE 18.8 mEq/L (21.0-31.0); CHLORIDE 129 mEq/L (98-107); CREATININE - SERUM 0.8 mg/dL (0.6-1.2); GLUCOSE 97 mg/dL (70-105); SGOT 15 U/L (13-39); SGPT/ALT 28 U/L (7-52); SODIUM SERUM 154 mEq/L (136-145)
[2016-12-21 08:57] LABS: INR 0.98 (0.5-1.4); PROTHROMBIN TIME (TEST) 10.2 SECONDS (9.5-11.5)
[2016-12-21] MEDS: Potassium Chloride Elixir 20 mEq /15 mL UDC GT SCH ×2 (10:13→16:13)
[2016-12-21] MEDS: Lactobacillus Rhamnosus 10 Billion CFU Capsule GT SCH ×2 (10:13→22:27)
[2016-12-21] MEDS: Multivitamin w/ Minerals Tab GT SCH (10:13)
[2016-12-21] MEDS: Ascorbic Acid 500 mg/5 mL UDC GT SCH (10:14)
[2016-12-21] MEDS: Venelex 60gm Tube TP SCH (10:14)
[2016-12-21] MEDS: Meropenem 1 GM in Sodium Chloride 0.9% 100 ML IV SCH ×2 (10:15→22:25)
--- NOTE | 2016-12-21 11:03 | Infectious Disease Prog Note ---
Infectious Disease Subjective - Review of Systems Service Date: 12/21/16 Subjective: patient remains confused. She continues to have diarrhea, and has rectal tube in place. afebrile today. Infectious Disease Objective - Results Result Diagrams: 12/21/16 06:41 12/21/16 06:41 Recent Labs: Laboratory Last Values WBC 12.1 Th/cmm (4.8-10.8) H 12/21/16 06:41 RBC 2.79 Mil/cmm (3.80-5.20) L 12/21/16 06:41 Hgb 8.3 gm/dL (11.7-16.1) L 12/21/16 06:41 Hct 24.6 % (35.0-45.0) L 12/21/16 06:41 MCV 88.3 fl (81-100) 12/21/16 06:41 MCH 29.6 pg (27.0-31.0) 12/21/16 06:41 MCHC Differential 33.5 pg (28.0-36.0) 12/21/16 06:41 RDW 17.5 % (11.5-20.0) 12/21/16 06:41 Plt Count 183 Th/cmm (150-400) 12/21/16 06:41 MPV 11.7 fl 12/21/16 06:41 Neutrophils % 76.3 % (40.0-80.0) 12/21/16 06:41 Band Neutrophils % 1 % (0-10) 12/20/16 04:40 Lymphocytes % 15.9 % (20.0-50.0) L 12/21/16 06:41 Monocytes % 3.8 % (2.0-10.0) 12/21/16 06:41 Eosinophils % 3.7 % (0.0-5.0) 12/21/16 06:41 Basophils % 0.3 % (0.0-2.0) 12/21/16 06:41 Neutrophils (Manual) 94 % (40-80) H 12/20/16 04:40 Lymphocytes 4 % (20-50) L 12/20/16 04:40 Monocytes 2 % (2-10) 12/19/16 04:40 Eosinophils 1 % (0-5) 12/20/16 04:40 Platelet Estimate ADEQUATE (NORMAL) 12/20/16 04:40 Platelet Morphology NORMAL (NORMAL) 12/18/16 04:46 Polychromasia 1+ 12/17/16 06:36 Anisocytosis 1+ 12/18/16 04:46 RBC Morph Micro Appear ABNORMAL (NORMAL) 12/18/16 04:46 ESR > 140 mm/hr (0-30) H 12/19/16 04:40 PT 10.2 SECONDS (9.5-11.5) 12/21/16 08:30 INR 0.98 (0.5-1.4) 12/21/16 08:30 PTT (Actin FS) 24.7 SECONDS (26.0-38.0) L 12/21/16 08:30 Sodium 154 mEq/L (136-145) H 12/21/16 06:41 Potassium 4.0 mEq/L (3.5-5.1) 12/21/16 06:41 Chloride 129 mEq/L (98-107) H 12/21/16 06:41 Carbon Dioxide 18.8 mEq/L (21.0-31.0) L 12/21/16 06:41 Anion Gap 10.2 (7.0-16.0) 12/21/16 06:41 BUN 43 mg/dL (7-25) H 12/21/16 06:41 Creatinine 0.8 mg/dL (0.6-1.2) 12/21/16 06:41 Est GFR ( Amer) > 60.0 ml/min (>90) 12/21/16 06:41 Est GFR (Non-Af Amer) > 60.0 ml/min 12/21/16 06:41 BUN/Creatinine Ratio 53.8 12/21/16 06:41 Glucose 97 mg/dL (70-105) 12/21/16 06:41 POC Glucose 104 MG/DL (70 - 105) 12/21/16 05:45 Hemoglobin A1c % 7.1 % (4.0-6.0) H 12/16/16 18:45 Whole Bld Lactic Acid 1.42 mmol/L (0.60-1.99) 12/20/16 04:40 Calcium 8.3 mg/dL (8.6-10.3) L 12/21/16 06:41 Magnesium 2.0 mg/dL (1.9-2.7) 12/20/16 04:40 Iron 38 ug/dL (27-139) 12/18/16 04:46 TIBC 168 ug/dL (250-450) L 12/18/16 04:46 Iron Saturation 23 % (15-55) 12/18/16 04:46 Unsaturated IBC 130 ug/dL (118-369) 12/18/16 04:46 Total Bilirubin 0.3 mg/dL (0.3-1.0) 12/21/16 06:41 AST 15 U/L (13-39) 12/21/16 06:41 ALT 28 U/L (7-52) 12/21/16 06:41 Alkaline Phosphatase 73 U/L (34-104) 12/21/16 06:41 Ammonia 36 umol/L (16-53) 12/19/16 19:22 C-Reactive Protein 19.8 mg/dL (0.0-0.9) H 12/19/16 04:40 B-Natriuretic Peptide 385.0 pg/mL (5.0-100.0) H 12/17/16 06:36 Total Protein 5.8 gm/dL (6.0-8.3) L 12/21/16 06:41 Albumin 2.3 gm/dL (3.7-5.3) L 12/21/16 06:41 Globulin 3.5 gm/dL 12/21/16 06:41 Albumin/Globulin Ratio 0.7 (1.0-1.8) L 12/21/16 06:41 TSH 1.38 uIU/ml (0.34-5.60) 12/17/16 06:36 Urine Source [place] 12/16/16 18:40 Urine Color YELLOW 12/16/16 18:40 Urine Clarity HAZY (CLEAR) 12/16/16 18:40 Urine pH >=9.0 12/16/16 18:40 Ur Specific [place] 1.010 (1.005-1.030) 12/16/16 18:40 Urine Protein >300 mg/dL (NEGATIVE) H 12/16/16 18:40 Urine Glucose (UA) 250 mg/dL (NEGATIVE) H 12/16/16 18:40 Urine Ketones NEGATIVE mg/dL (NEGATIVE) 12/16/16 18:40 Urine Blood NEGATIVE (NEGATIVE) 12/16/16 18:40 Urine Nitrate POSITIVE (NEGATIVE) H 12/16/16 18:40 Urine Bilirubin NEGATIVE (NEGATIVE) 12/16/16 18:40 Urine Urobilinogen 0.2 E.U./dL (0.2 - 1.0) 12/16/16 18:40 Ur Leukocyte Esterase SMALL (NEGATIVE) H 12/16/16 18:40 Urine RBC 0-2 /hpf (0-5) 12/16/16 18:40 Urine WBC 50-100 /hpf (0-5) H 12/16/16 18:40 Ur Epithelial Cells FEW /lpf (FEW) 12/16/16 18:40 Triple Phos Crystals FEW /hpf (FEW) 12/16/16 18:40 Urine Bacteria MANY /hpf (NONE SEEN) 12/16/16 18:40 Vancomycin Trough 27.2 ug/mL (10-20) H 12/21/16 08:30 Random Vancomycin 27.6 ug/mL (5.0-40.0) 12/20/16 04:40 Blood Type A POSITIVE 12/17/16 09:45 Antibody Screen NEGATIVE 12/17/16 09:45 Crossmatch See Detail 12/17/16 09:45 - Physical Exam Vitals and I&O: Vital Signs Temp 98.1 F 12/21/16 08:00 Pulse 86 12/21/16 08:00 Resp 18 12/21/16 08:00 BP 89/52 12/21/16 08:00 Pulse Ox 98 12/21/16 08:00 Intake & Output 12/20/16 12/21/16 12/21/16 18:59 06:59 18:59 Intake Total 4687.900 9897 Output Total 1060 Balance 1138.333 530 Weight (lbs) 58.967 kg 59.874 kg Intake: Intake, IV Amount 3905.464 4275 KCL 20mEq/100mL Premix 20 100 meq In 100 ml @ 50 mls/ hr IV Q2H DC Rx#: [id number] Meropenem 1 gm In Sodium 100 100 Chloride 0.9% 100 ml @ 100 mls/hr IV Q12HR DC Rx#:[id number] Potassium Chloride 40 meq 838.333 700 In Dextrose 5% 1,000 ml @ 100 mls/hr IV .[id number] DC Rx#:[id number] Vancomycin HCl 1.25 gm In 250 Sodium Chloride 0.9% 250 ml @ 165 mls/hr IV Q24HR [facility] Rx#:[id number] metroNIDAZOLE 500mg/NS 100 100 100mL 500 mg In 100 ml @ 100 mls/hr IV Q8HR [facility] Rx #:[id number] Oral 0 Tube Feeding 240 Other 200 Output: Urine 1000 Other 60 Other: Stool Characteristics Liquid Liquid Brown Brown Active Medications: Current Medications Acetaminophen (Tylenol 650mg/20.3ml Suspension) 650 mg GT Q6HR PRN PRN Reason: Pain or Fever >101 Stop: 02/14/17 21:15 Last Admin: 12/20/16 03:55 Dose: 650 mg Acetaminophen/Hydrocodone Bitart ([place] 5mg/325mg) 1 tab GT Q4H PRN PRN Reason: Pain (Severe) Stop: 02/14/17 21:15 Last Admin: 12/21/16 01:59 Dose: 1 tab Albuterol Sulfate (Albuterol 2.5mg/3ml Neb Ud) 2.5 mg HHN Q2HRT PRN PRN Reason: Shortness of Breath or Wheeze Stop: 02/14/17 21:19 Albuterol/Ipratropium (Duoneb Neb) 3 ml HHN Q6HRT [facility] Stop: 02/15/17 00:59 Last Admin: 12/21/16 07:15 Dose: 3 ml Ascorbic Acid (Vitamin C) 500 mg GT DAILY [facility] Stop: 02/15/17 08:59 Last Admin: 12/21/16 10:14 Dose: 500 mg Bisacodyl (Dulcolax 10 Mg Supp) 10 mg RC DAILY PRN PRN Reason: IF MOM INEFFECTIVE Stop: 02/14/17 21:15 Clonidine HCl (Catapres) 0.1 mg PO Q6H PRN PRN Reason: SBP GREATER THAN 160 Stop: 02/14/17 21:19 Guaifenesin (Robitussin) 200 mg PO Q4HR PRN PRN Reason: Cough or Congestion Stop: 02/14/17 21:19 Meropenem 1 gm/ Sodium (Chloride) 100 mls @ 100 mls/hr IV Q12HR [facility] Stop: 02/16/17 12:59 Last Admin: 12/21/16 10:15 Dose: 100 mls/hr Metronidazole (Flagyl) 500 mg in 100 mls @ 100 mls/hr IV Q8HR DC Stop: 02/16/17 13:59 Last Admin: 12/21/16 06:07 Dose: 100 mls/hr Potassium Chloride 40 meq/ (Dextrose) 1,020 mls @ 100 mls/hr IV .[id number] DC Stop: 02/17/17 15:41 Last Admin: 12/20/16 22:18 Dose: 100 mls/hr Insulin Aspart (Novolog Insulin Sliding Scale) 0 units SUBQ ACHS DC PRN Reason: Protocol Stop: 02/15/17 20:59 Last Admin: 12/21/16 06:48 Dose: Not Given Insulin Human NPH (Novolin N) 20 units SUBQ BIDAC DC PRN Reason: Protocol Stop: 02/16/17 07:29 Last Admin: 12/21/16 06:49 Dose: Not Given Ipratropium [place] (Atrovent Neb 0.5mg/2.5ml) 0.5 mg IH Q2HRT PRN PRN Reason: Shortness of Breath or Wheeze Stop: 02/14/17 21:19 Lactobacillus Rhamnosus (Culturelle) 1 each GT Q12H DC Stop: 02/14/17 21:29 Last Admin: 12/21/16 10:13 Dose: 1 each Loperamide HCl (Imodium 1mg/5ml Suspension) 2 mg GT Q4H PRN PRN Reason: Diarrhea Stop: 02/14/17 21:15 Lorazepam (Ativan) 0.5 mg GT Q6H PRN; Protocol PRN Reason: Anxiety Stop: 02/14/17 21:15 Last Admin: 12/18/16 23:53 Dose: 0.5 mg Midodrine (Proamatine) 5 mg PO TID DC Stop: 02/17/17 20:59 Last Admin: 12/21/16 10:13 Dose: 5 mg Miscellaneous (Probiotic Screen) 1 ea MC PRN PRN PRN Reason: PROTOCOL Stop: 02/15/17 15:43 Miscellaneous (Vancomycin Iv Per Pharmacy) 1 ea MC DAILY [facility] Stop: 02/16/17 12:59 Morphine Sulfate (Morphine) 2 mg IVP Q4H PRN PRN Reason: Severe Pain Stop: 02/16/17 10:57 Last Admin: 12/18/16 23:15 Dose: 2 mg Ondansetron HCl (Zofran) 4 mg IV Q8H PRN PRN Reason: Nausea / Vomiting Stop: 02/14/17 21:19 Last Admin: 12/17/16 12:53 Dose: 4 mg Pantoprazole Sodium (Protonix) 40 mg GT Q24H [facility] Stop: 02/14/17 21:29 Last Admin: 12/20/16 22:18 Dose: 40 mg Potassium Chloride (Potassium Chloride Elixir) 40 meq GT BID [facility] Stop: 12/23/16 09:59 Last Admin: 12/21/16 10:13 Dose: 40 meq General: no acute distress, cachectic HEENT: atraumatic, normocephalic, PERRLA, EOMI, moist mucous membrane Neck: supple, no thyromegaly, no rigid Cardiovascular: S1S2, regular Lungs: clear to auscultation bilaterally, clear to percussion Abdomen: soft, no tender, no distended Extremities: no cyanosis, no clubbing, no edema Neurological: awake, other (open her eyes.) Skin: other (Stage 4 sacral wound.) - Procedures Procedures: Procedures Procedure Code Date ASSISTANCE WITH RESPIRATORY VENTILATION, 24-96 HRS, CPAP [id number] 09/12/16 BLOOD TRANSFUSION SERVICE 13920 12/16/16 [place] [address] 04/15/16 IMMUNIZATION ADMIN 41172 04/15/16 INSERT PICC CATH [id number] 04/15/16 INSERTION OF INFUSION DEVICE INTO R [facility], PERC APPROACH 24J905Y 04/15/16 INTRODUCTION OF SERUM/TOX/VACCINE INTO MUSCLE, PERC APPROACH [id number] 04/15/16 POS AIRWAY PRESSURE CPAP 23180 09/12/16 TRANSFUSE NONAUT RED BLOOD CELLS IN PERIPH VEIN, PERC [id number] 12/16/16 Infectious Disease Assmt/Plan - Problem List Patient Problems: All Active Problems MRSA (methicillin resistant Staphylococcus aureus) septicemia (Acute) A41.02 MRSA septicemia (Acute) proteus sepsis (Acute) proteus sepsis (Acute) proteus urinary tract infection (Acute) proteus urinary tract infection (Acute) FEVER WITH ELEVATED WBC, BUN (Acute) Hyperosmolality and hypernatremia (Acute) E87.0 Weakness (Acute) azotemia better (Acute) - Assessment Assessment: 1. Staphylococcus aureus, MRSA sepsis most likey source is sacral wound, clinically osteomyelitis with very elevated ESR and CRP. 2. GNR sepsis. likely source is sacral wound and UTI. 3. UTI , pyelonephritis. 4. Sepsis shock improving. 5. 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 6. DM2 7. UTI: Proteus. 8. 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 9. Diarrhea, C diff ruled out. 10. Hypokalemia. 11. metabolic acidosis. 12. Dementia. Recommendations: Will continue meropenem. Depending on the blood and wound culture report , Will change vanco to daptomycin as mrsa has high RAMIRO against vanco RAMIRO. When bacteremia clears, will change daptomycin to vanco IV. repeat blood c/s DW pharmacist. ERVIN pham. start lomotol. Nutritional Asmnt/Malnutr-PDOC - Dietary Evaluation Malnutrition Findings (Please click <Entered> for more info): Nutritional Asmnt/Malnutrition Start: 12/18/16 14: 50 Text: Status: Complete Freq: Document 12/18/16 14:51 GSUN (Rec: 12/18/16 15:26 GSUN [email or web address]) Nutritional Asmnt/Malnutrition Patient General Information Nutritional Screening Consult Diagnosis Sepsis, sepsis shock, sacral wound stage 4, DM2, diarrhea, CKD vs PER CKD Pertinent Medical Hx/Surgical Hx HTN, bronchitis, penumonia, dementia, constipation, GERD, gastritis, anxiety, psychosis, muscle atrophy, weakness, stiffness, acute renal failure , UTI, osteoporosis Subjective Information 66 year old female from SNF. RD consult for wound. Pt noted with consistent diarrhea. Spoke to Dr. Gonzalez on the phone this AM. Current diet order per Nutren 1.0 at 40ml/hr vs Glucerna at 40ml/hr . RD called Dr. Gonzalez back for clarification at around 11 :30am, waiting for callback. RD endorsed to RN Nabila regarding enteral feeding recommendations. Plan for aggressiveh dyration noted in MD notes, also noted just cover glucose with higher dose of insulin. Observed Diabetisource running at 50ml/ hr during visit. No severe muscle/fat wasting noted. CBW 133.3lb with equipment removed . Current Diet Order/ Nutrition Support Glucerna 40ml/hr vs Nutren 1.0 40ml/hr Pertinent Medications Vitamin C, D5W, Novolog, Novolin, Culturelle, Flagyl, Vancomycin, Morphine, Zofran, Protonix Pertinent Labs 12/16: A1c 7.1H 12/18: sodium 164H, BUN 121H, creatinine 2.4H, glucose 326H Nutritional Hx/Data Height 1.63 m Height (Calculated Centimeters) 162.6 Current Weight (lbs) 60.464 kg Weight (Calculated Kilograms) 60.5 Weight (Calculated Grams) 19277.9 [place] Body Weight 120 Weight Status Approriate GI Symptoms GI Symptoms Diarrhea Difficult in: Chewing Swallowing Usual diet at home [place] Care: Jevity 1.2 at 70ml/hr x 20hrs, prostat Skin Integrity/Comment: Ruslan Oro. note: sacral wound stage 4 Estimated Nutritional Goals Calories/Kcals/Kg IBW 120lb/54.5kg due to questionable weights obtained Kcals Calculated 1635-1980kcal (30-35kcal/kg, sepsis, skin integrity, bedridden) Protein Calculated 76-98g (1.4-1.8g/kg, renal vs sacral wound stage 4) Fluid: ml Per MD (plan for aggressive hydration) Nutritional Problem 3. Problem Problem Increased kcal andp rot needs realted to Etiology hypermetabolic state, skin integrity aeb Signs/Symptoms: sepsis, sacral wound stage 4 2. Problem Problem Altered nutrition related laboratory values related to Etiology DM aeb Signs/Symptoms: A1c 7.1, glucose >180 1. Problem Problem Altered GI function related to Etiology unknown etiology aeb Signs/Symptoms: consistent diarrhea Intervention/Recommendation Comments 1. Current diet order reads: Nutren 1.0 at 40ml/hr with comment Glucerna ( Diabetisource) at 40ml/hr, providing to meet 59% and 70%, respectively, of lower end of kcal needs. RD called Dr. Gonzalez 11:30am to clarify order, waiting for call back. Current MDs' nutrition related plan of care: aggressive hydration, resolve diarrhea. 2. Recommend Diabetisource at 60ml/hr, providing 1440ml total volume, 1728kcal to meet 100% of lower end of kcal needs, and 86g protein. OR if kept with Nutren 1.0, recommend 1 packet Prosource via tube, 1 packet Arginaid via tube, rate at 70ml/hr, prvoiding 1680ml total volume, 1680kcal, 67g protein from tube feeding. Expected Outcomes/Goals Expected Outcomes/Goals 1. Diarrhea to resolve. 2. Pt to meet 100% of estimated nutritional needs on tube feeding with tolerance.
[2016-12-21] MEDS ORDERED: Diphenoxylate/Atropine 2.5mg Tab PO PRN (12:02)
[2016-12-21] MEDS ORDERED: Meperidine 25 mg/mL 1mL Syr IVP PRN (13:53)
--- NOTE | 2016-12-21 13:54 | Internal Medicine Prog Note ---
Internal Medicine Subjective - Subjective Service Date: 12/21/16 (currently in OR for wound debridement) Patient is:: awake, non-verbal, non-interactive, arousable, in bed, denies any new complaints Patient Complaints of:: congestion, cough, bloated, SOB Per staff patient has:: no adverse event, no episodes of fall, tolerating meds Internal Medicine Objective - Results Result Diagrams: 12/21/16 06:41 12/21/16 06:41 Recent Labs: Laboratory Last Values WBC 12.1 Th/cmm (4.8-10.8) H 12/21/16 06:41 RBC 2.79 Mil/cmm (3.80-5.20) L 12/21/16 06:41 Hgb 8.3 gm/dL (11.7-16.1) L 12/21/16 06:41 Hct 24.6 % (35.0-45.0) L 12/21/16 06:41 MCV 88.3 fl (81-100) 12/21/16 06:41 MCH 29.6 pg (27.0-31.0) 12/21/16 06:41 MCHC Differential 33.5 pg (28.0-36.0) 12/21/16 06:41 RDW 17.5 % (11.5-20.0) 12/21/16 06:41 Plt Count 183 Th/cmm (150-400) 12/21/16 06:41 MPV 11.7 fl 12/21/16 06:41 Neutrophils % 76.3 % (40.0-80.0) 12/21/16 06:41 Band Neutrophils % 1 % (0-10) 12/20/16 04:40 Lymphocytes % 15.9 % (20.0-50.0) L 12/21/16 06:41 Monocytes % 3.8 % (2.0-10.0) 12/21/16 06:41 Eosinophils % 3.7 % (0.0-5.0) 12/21/16 06:41 Basophils % 0.3 % (0.0-2.0) 12/21/16 06:41 Neutrophils (Manual) 94 % (40-80) H 12/20/16 04:40 Lymphocytes 4 % (20-50) L 12/20/16 04:40 Monocytes 2 % (2-10) 12/19/16 04:40 Eosinophils 1 % (0-5) 12/20/16 04:40 Platelet Estimate ADEQUATE (NORMAL) 12/20/16 04:40 Platelet Morphology NORMAL (NORMAL) 12/18/16 04:46 Polychromasia 1+ 12/17/16 06:36 Anisocytosis 1+ 12/18/16 04:46 RBC Morph Micro Appear ABNORMAL (NORMAL) 12/18/16 04:46 ESR > 140 mm/hr (0-30) H 12/19/16 04:40 PT 10.2 SECONDS (9.5-11.5) 12/21/16 08:30 INR 0.98 (0.5-1.4) 12/21/16 08:30 PTT (Actin FS) 24.7 SECONDS (26.0-38.0) L 12/21/16 08:30 Sodium 154 mEq/L (136-145) H 12/21/16 06:41 Potassium 4.0 mEq/L (3.5-5.1) 12/21/16 06:41 Chloride 129 mEq/L (98-107) H 12/21/16 06:41 Carbon Dioxide 18.8 mEq/L (21.0-31.0) L 12/21/16 06:41 Anion Gap 10.2 (7.0-16.0) 12/21/16 06:41 BUN 43 mg/dL (7-25) H 12/21/16 06:41 Creatinine 0.8 mg/dL (0.6-1.2) 12/21/16 06:41 Est GFR ( Amer) > 60.0 ml/min (>90) 12/21/16 06:41 Est GFR (Non-Af Amer) > 60.0 ml/min 12/21/16 06:41 BUN/Creatinine Ratio 53.8 12/21/16 06:41 Glucose 97 mg/dL (70-105) 12/21/16 06:41 POC Glucose 97 MG/DL (70 - 105) 12/21/16 11:58 Hemoglobin A1c % 7.1 % (4.0-6.0) H 12/16/16 18:45 Whole Bld Lactic Acid 1.42 mmol/L (0.60-1.99) 12/20/16 04:40 Calcium 8.3 mg/dL (8.6-10.3) L 12/21/16 06:41 Magnesium 2.0 mg/dL (1.9-2.7) 12/20/16 04:40 Iron 38 ug/dL (27-139) 12/18/16 04:46 TIBC 168 ug/dL (250-450) L 12/18/16 04:46 Iron Saturation 23 % (15-55) 12/18/16 04:46 Unsaturated IBC 130 ug/dL (118-369) 12/18/16 04:46 Total Bilirubin 0.3 mg/dL (0.3-1.0) 12/21/16 06:41 AST 15 U/L (13-39) 12/21/16 06:41 ALT 28 U/L (7-52) 12/21/16 06:41 Alkaline Phosphatase 73 U/L (34-104) 12/21/16 06:41 Ammonia 36 umol/L (16-53) 12/19/16 19:22 C-Reactive Protein 19.8 mg/dL (0.0-0.9) H 12/19/16 04:40 B-Natriuretic Peptide 385.0 pg/mL (5.0-100.0) H 12/17/16 06:36 Total Protein 5.8 gm/dL (6.0-8.3) L 12/21/16 06:41 Albumin 2.3 gm/dL (3.7-5.3) L 12/21/16 06:41 Globulin 3.5 gm/dL 12/21/16 06:41 Albumin/Globulin Ratio 0.7 (1.0-1.8) L 12/21/16 06:41 TSH 1.38 uIU/ml (0.34-5.60) 12/17/16 06:36 Urine Source [place] 12/16/16 18:40 Urine Color YELLOW 12/16/16 18:40 Urine Clarity HAZY (CLEAR) 12/16/16 18:40 Urine pH >=9.0 12/16/16 18:40 Ur Specific [place] 1.010 (1.005-1.030) 12/16/16 18:40 Urine Protein >300 mg/dL (NEGATIVE) H 12/16/16 18:40 Urine Glucose (UA) 250 mg/dL (NEGATIVE) H 12/16/16 18:40 Urine Ketones NEGATIVE mg/dL (NEGATIVE) 12/16/16 18:40 Urine Blood NEGATIVE (NEGATIVE) 12/16/16 18:40 Urine Nitrate POSITIVE (NEGATIVE) H 12/16/16 18:40 Urine Bilirubin NEGATIVE (NEGATIVE) 12/16/16 18:40 Urine Urobilinogen 0.2 E.U./dL (0.2 - 1.0) 12/16/16 18:40 Ur Leukocyte Esterase SMALL (NEGATIVE) H 12/16/16 18:40 Urine RBC 0-2 /hpf (0-5) 12/16/16 18:40 Urine WBC 50-100 /hpf (0-5) H 12/16/16 18:40 Ur Epithelial Cells FEW /lpf (FEW) 12/16/16 18:40 Triple Phos Crystals FEW /hpf (FEW) 12/16/16 18:40 Urine Bacteria MANY /hpf (NONE SEEN) 12/16/16 18:40 Vancomycin Trough 27.2 ug/mL (10-20) H 12/21/16 08:30 Random Vancomycin 27.6 ug/mL (5.0-40.0) 12/20/16 04:40 Blood Type A POSITIVE 12/17/16 09:45 Antibody Screen NEGATIVE 12/17/16 09:45 Crossmatch See Detail 12/17/16 09:45 - Physical Exam Vitals and I&O: Vital Signs Temp 97.9 F 12/21/16 12:00 Pulse 90 12/21/16 12:00 Resp 20 12/21/16 12:00 BP 95/49 12/21/16 12:00 Pulse Ox 98 12/21/16 12:00 Intake & Output 12/20/16 12/21/16 12/21/16 18:59 06:59 18:59 Intake Total 5900.086 9845 100 Output Total 1060 Balance 1138.333 530 100 Weight (lbs) 130 lb 132 lb 132 lb 12.8 oz Intake: Intake, IV Amount 7853.629 0615 100 KCL 20mEq/100mL Premix 20 100 meq In 100 ml @ 50 mls/ hr IV Q2H DC Rx#: [id number] Meropenem 1 gm In Sodium 100 100 100 Chloride 0.9% 100 ml @ 100 mls/hr IV Q12HR DC Rx#:[id number] Potassium Chloride 40 meq 838.333 700 In Dextrose 5% 1,000 ml @ 100 mls/hr IV .[id number] [facility] Rx#:[id number] Vancomycin HCl 1.25 gm In 250 Sodium Chloride 0.9% 250 ml @ 165 mls/hr IV Q24HR [facility] Rx#:[id number] metroNIDAZOLE 500mg/NS 100 100 100mL 500 mg In 100 ml @ 100 mls/hr IV Q8HR [facility] Rx #:[id number] Oral 0 Tube Feeding 240 Other 200 Output: Urine 1000 Other 60 Other: Stool Characteristics Liquid Liquid Liquid Brown Brown Brown Active Medications: Current Medications Acetaminophen (Tylenol 650mg/20.3ml Suspension) 650 mg GT Q6HR PRN PRN Reason: Pain or Fever >101 Stop: 02/14/17 21:15 Last Admin: 12/20/16 03:55 Dose: 650 mg Acetaminophen/Hydrocodone Bitart ([place] 5mg/325mg) 1 tab GT Q4H PRN PRN Reason: Pain (Severe) Stop: 02/14/17 21:15 Last Admin: 12/21/16 01:59 Dose: 1 tab Albuterol Sulfate (Albuterol 2.5mg/3ml Neb Ud) 2.5 mg HHN Q2HRT PRN PRN Reason: Shortness of Breath or Wheeze Stop: 02/14/17 21:19 Albuterol/Ipratropium (Duoneb Neb) 3 ml HHN Q6HRT [facility] Stop: 02/15/17 00:59 Last Admin: 12/21/16 07:15 Dose: 3 ml Ascorbic Acid (Vitamin C) 500 mg GT DAILY [facility] Stop: 02/15/17 08:59 Last Admin: 12/21/16 10:14 Dose: 500 mg Bisacodyl (Dulcolax 10 Mg Supp) 10 mg RC DAILY PRN PRN Reason: IF MOM INEFFECTIVE Stop: 02/14/17 21:15 Clonidine HCl (Catapres) 0.1 mg PO Q6H PRN PRN Reason: SBP GREATER THAN 160 Stop: 02/14/17 21:19 Diphenoxylate HCl/Atropine (Lomotil) 2 tab PO TID PRN PRN Reason: Diarrhea Stop: 02/19/17 12:01 Guaifenesin (Robitussin) 200 mg PO Q4HR PRN PRN Reason: Cough or Congestion Stop: 02/14/17 21:19 Meropenem 1 gm/ Sodium (Chloride) 100 mls @ 100 mls/hr IV Q12HR [facility] Stop: 02/16/17 12:59 Last Infusion: 12/21/16 11:15 Dose: Infused Potassium Chloride 40 meq/ (Dextrose) 1,020 mls @ 100 mls/hr IV .[id number] [facility] Stop: 02/17/17 15:41 Last Admin: 12/20/16 22:18 Dose: 100 mls/hr Daptomycin 360 mg/ Sodium (Chloride) 100 mls @ 100 mls/hr IV Q24H [facility] Stop: 02/19/17 11:14 Last Admin: 12/21/16 11:49 Dose: 100 mls/hr Insulin Aspart (Novolog Insulin Sliding Scale) 0 units SUBQ ACHS DC PRN Reason: Protocol Stop: 02/15/17 20:59 Last Admin: 12/21/16 12:16 Dose: Not Given Insulin Human NPH (Novolin N) 20 units SUBQ BIDAC DC PRN Reason: Protocol Stop: 02/16/17 07:29 Last Admin: 12/21/16 06:49 Dose: Not Given Ipratropium [place] (Atrovent Neb 0.5mg/2.5ml) 0.5 mg IH Q2HRT PRN PRN Reason: Shortness of Breath or Wheeze Stop: 02/14/17 21:19 Lactobacillus Rhamnosus (Culturelle) 1 each GT Q12H DC Stop: 02/14/17 21:29 Last Admin: 12/21/16 10:13 Dose: 1 each Loperamide HCl (Imodium 1mg/5ml Suspension) 2 mg GT Q4H PRN PRN Reason: Diarrhea Stop: 02/14/17 21:15 Lorazepam (Ativan) 0.5 mg GT Q6H PRN; Protocol PRN Reason: Anxiety Stop: 02/14/17 21:15 Last Admin: 12/18/16 23:53 Dose: 0.5 mg Midodrine (Proamatine) 5 mg PO TID [facility] Stop: 02/17/17 20:59 Last Admin: 12/21/16 13:35 Dose: Not Given Miscellaneous (Probiotic Screen) 1 ea MC PRN PRN PRN Reason: PROTOCOL Stop: 02/15/17 15:43 Morphine Sulfate (Morphine) 2 mg IVP Q4H PRN PRN Reason: Severe Pain Stop: 02/16/17 10:57 Last Admin: 12/18/16 23:15 Dose: 2 mg Ondansetron HCl (Zofran) 4 mg IV Q8H PRN PRN Reason: Nausea / Vomiting Stop: 02/14/17 21:19 Last Admin: 12/17/16 12:53 Dose: 4 mg Pantoprazole Sodium (Protonix) 40 mg GT Q24H DC Stop: 02/14/17 21:29 Last Admin: 12/20/16 22:18 Dose: 40 mg Potassium Chloride (Potassium Chloride Elixir) 40 meq GT BID [facility] Stop: 12/23/16 09:59 Last Admin: 12/21/16 10:13 Dose: 40 meq General: lethargic, demented, disheveled, bilateral temporal wasting, cachectic , appears older HEENT: NC/AT Neck: Supple, No LAD Lungs: congested, rales, ronchi Cardiovascular: RRR, Normal S1, Normal S2, without murmur Abdomen: soft, non-tender, globular, +GT, positive bowel sound Extremities: excoriation, contracture, ulcers stage 4 Neurological: no change, lethargic, disorganized, unable to follow command, bedbound, spastic - Procedures Procedures: Procedures Procedure Code Date ASSISTANCE WITH RESPIRATORY VENTILATION, 24-96 HRS, CPAP [id number] 09/12/16 BLOOD TRANSFUSION SERVICE 88201 12/16/16 [place] [id number] 04/15/16 IMMUNIZATION ADMIN 16867 04/15/16 INSERT PICC CATH [id number] 04/15/16 INSERTION OF INFUSION DEVICE INTO R [facility], [facility] APPROACH [id number] 04/15/16 INTRODUCTION OF SERUM/TOX/VACCINE INTO MUSCLE, [facility] APPROACH [id number] 04/15/16 POS AIRWAY PRESSURE CPAP [id number] 09/12/16 TRANSFUSE NONAUT RED BLOOD CELLS IN PERIPH VEIN, PERC [id number] 12/16/16 Internal Medicine Assmt/Plan - Assessment Assessment: hypokalemia severe anemia acute renal failure severe sepsis pnm fever sad decub ulcer sp peg fuctional quad bedridden anemia Urine cx + Proteus Mirabilis MRSA blood leukocytosis lactic acidosis dmooc - Plan Plan: monitor h/h icu monitoring wound debridement today ivf continue empiric iv abx montor glucose f/u labs in am wound care Nutritional Asmnt/Malnutr-PDOC - Dietary Evaluation Malnutrition Findings (Please click <Entered> for more info): Nutritional Asmnt/Malnutrition Start: 12/18/16 14: 50 Text: Status: Complete Freq: Document 12/18/16 14:51 GSUN (Rec: 12/18/16 15:26 GSUN [email or web address]) Nutritional Asmnt/Malnutrition Patient General Information Nutritional Screening Consult Diagnosis Sepsis, sepsis shock, sacral wound stage 4, DM2, diarrhea, CKD vs PER CKD Pertinent Medical Hx/Surgical Hx HTN, bronchitis, penumonia, dementia, constipation, GERD, gastritis, anxiety, psychosis, muscle atrophy, weakness, stiffness, acute renal failure , UTI, osteoporosis Subjective Information 66 year old female from SNF. RD consult for wound. Pt noted with consistent diarrhea. Spoke to Dr. Gonzalez on the phone this AM. Current diet order per Nutren 1.0 at 40ml/hr vs Glucerna at 40ml/hr . RD called Dr. Gonzalez back for clarification at around 11 :30am, waiting for callback. RD endorsed to RN Nabila regarding enteral feeding recommendations. Plan for aggressiveh dyration noted in MD notes, also noted just cover glucose with higher dose of insulin. Observed Diabetisource running at 50ml/ hr during visit. No severe muscle/fat wasting noted. CBW 133.3lb with equipment removed . Current Diet Order/ Nutrition Support Glucerna 40ml/hr vs Nutren 1.0 40ml/hr Pertinent Medications Vitamin C, D5W, Novolog, Novolin, Culturelle, Flagyl, Vancomycin, Morphine, Zofran, Protonix Pertinent Labs 12/16: A1c 7.1H 12/18: sodium 164H, BUN 121H, creatinine 2.4H, glucose 326H Nutritional Hx/Data Height 5 ft 4 in Height (Calculated Centimeters) 162.6 Current Weight (lbs) 133 lb 4.8 oz Weight (Calculated Kilograms) 60.5 Weight (Calculated Grams) 44194.9 [place] Body Weight 120 Weight Status Approriate GI Symptoms GI Symptoms Diarrhea Difficult in: Chewing Swallowing Usual diet at home Loop Care: Jevity 1.2 at 70ml/hr x 20hrs, prostat Skin Integrity/Comment: Ruslan Oro. note: sacral wound stage 4 Estimated Nutritional Goals Calories/Kcals/Kg IBW 120lb/54.5kg due to questionable weights obtained Kcals Calculated 1635-1980kcal (30-35kcal/kg, sepsis, skin integrity, bedridden) Protein Calculated 76-98g (1.4-1.8g/kg, renal vs sacral wound stage 4) Fluid: ml Per MD (plan for aggressive hydration) Nutritional Problem 3. Problem Problem Increased kcal andp rot needs realted to Etiology hypermetabolic state, skin integrity aeb Signs/Symptoms: sepsis, sacral wound stage 4 2. Problem Problem Altered nutrition related laboratory values related to Etiology DM aeb Signs/Symptoms: A1c 7.1, glucose >180 1. Problem Problem Altered GI function related to Etiology unknown etiology aeb Signs/Symptoms: consistent diarrhea Intervention/Recommendation Comments 1. Current diet order reads: Nutren 1.0 at 40ml/hr with comment Glucerna ( Diabetisource) at 40ml/hr, providing to meet 59% and 70%, respectively, of lower end of kcal needs. RD called Dr. Gonzalez 11:30am to clarify order, waiting for call back. Current MDs' nutrition related plan of care: aggressive hydration, resolve diarrhea. 2. Recommend Diabetisource at 60ml/hr, providing 1440ml total volume, 1728kcal to meet 100% of lower end of kcal needs, and 86g protein. OR if kept with Nutren 1.0, recommend 1 packet Prosource via tube, 1 packet Arginaid via tube, rate at 70ml/hr, prvoiding 1680ml total volume, 1680kcal, 67g protein from tube feeding. Expected Outcomes/Goals Expected Outcomes/Goals 1. Diarrhea to resolve. 2. Pt to meet 100% of estimated nutritional needs on tube feeding with tolerance.
[2016-12-21] MEDS ORDERED: Lactated Ringer 1,000 ML IV SCH (14:00)
--- NOTE | 2016-12-21 14:05 | Operative Report ---
Operative Report - Surgery Date of Surgery:: 12/21/16 Procedure:: excisional debridement stage 4 sacral decubitus ulcer 2. application of wound vac Indication for procedure:: stage 4 sacral decubitus ulcer with incontinence and septicemia Procedure consent:: same Anesthesia:: Anesthesiologist:Krystyna Thrasher Anesthesia:sedation sedation Preoperative diagnosis:: stage 4 sacral decubitus ulcer, septicemia, diabetes Postoperative diagnosis:: same Description of Procedure:: Procedure: the patient given IV sedation. she was turned on the left decubitus position. The ulcer was prepped with Betadine and draped. Size of ulcer: 10 by 15 cm , base of ulcer - bone. The necrotic tissues were excised using scissors and scalpel. Bleeding was controlled with cauter. Following hemotasis, the wound vac (silver foam,) was applied. The patient tolerated the procedure well
[2016-12-21] MEDS: Morphine Sulfate 4 mg/mL 1mL Syr IVP PRN ×2 (15:08→18:36)
--- NOTE | 2016-12-21 17:01 | General Progress Note ---
Subjective - Review of Systems Service Date: 12/21/16 Subjective: awake alert tries to communicate Objective - Results Result Diagrams: 12/21/16 06:41 12/21/16 06:41 Recent Labs: Laboratory Last Values WBC 12.1 Th/cmm (4.8-10.8) H 12/21/16 06:41 RBC 2.79 Mil/cmm (3.80-5.20) L 12/21/16 06:41 Hgb 8.3 gm/dL (11.7-16.1) L 12/21/16 06:41 Hct 24.6 % (35.0-45.0) L 12/21/16 06:41 MCV 88.3 fl (81-100) 12/21/16 06:41 MCH 29.6 pg (27.0-31.0) 12/21/16 06:41 MCHC Differential 33.5 pg (28.0-36.0) 12/21/16 06:41 RDW 17.5 % (11.5-20.0) 12/21/16 06:41 Plt Count 183 Th/cmm (150-400) 12/21/16 06:41 MPV 11.7 fl 12/21/16 06:41 Neutrophils % 76.3 % (40.0-80.0) 12/21/16 06:41 Band Neutrophils % 1 % (0-10) 12/20/16 04:40 Lymphocytes % 15.9 % (20.0-50.0) L 12/21/16 06:41 Monocytes % 3.8 % (2.0-10.0) 12/21/16 06:41 Eosinophils % 3.7 % (0.0-5.0) 12/21/16 06:41 Basophils % 0.3 % (0.0-2.0) 12/21/16 06:41 Neutrophils (Manual) 94 % (40-80) H 12/20/16 04:40 Lymphocytes 4 % (20-50) L 12/20/16 04:40 Monocytes 2 % (2-10) 12/19/16 04:40 Eosinophils 1 % (0-5) 12/20/16 04:40 Platelet Estimate ADEQUATE (NORMAL) 12/20/16 04:40 Platelet Morphology NORMAL (NORMAL) 12/18/16 04:46 Polychromasia 1+ 12/17/16 06:36 Anisocytosis 1+ 12/18/16 04:46 RBC Morph Micro Appear ABNORMAL (NORMAL) 12/18/16 04:46 ESR > 140 mm/hr (0-30) H 12/19/16 04:40 PT 10.2 SECONDS (9.5-11.5) 12/21/16 08:30 INR 0.98 (0.5-1.4) 12/21/16 08:30 PTT (Actin FS) 24.7 SECONDS (26.0-38.0) L 12/21/16 08:30 Sodium 154 mEq/L (136-145) H 12/21/16 06:41 Potassium 4.0 mEq/L (3.5-5.1) 12/21/16 06:41 Chloride 129 mEq/L (98-107) H 12/21/16 06:41 Carbon Dioxide 18.8 mEq/L (21.0-31.0) L 12/21/16 06:41 Anion Gap 10.2 (7.0-16.0) 12/21/16 06:41 BUN 43 mg/dL (7-25) H 12/21/16 06:41 Creatinine 0.8 mg/dL (0.6-1.2) 12/21/16 06:41 Est GFR ( Amer) > 60.0 ml/min (>90) 12/21/16 06:41 Est GFR (Non-Af Amer) > 60.0 ml/min 12/21/16 06:41 BUN/Creatinine Ratio 53.8 12/21/16 06:41 Glucose 97 mg/dL (70-105) 12/21/16 06:41 POC Glucose 74 MG/DL (70 - 105) 12/21/16 16:11 Hemoglobin A1c % 7.1 % (4.0-6.0) H 12/16/16 18:45 Whole Bld Lactic Acid 1.42 mmol/L (0.60-1.99) 12/20/16 04:40 Calcium 8.3 mg/dL (8.6-10.3) L 12/21/16 06:41 Magnesium 2.0 mg/dL (1.9-2.7) 12/20/16 04:40 Iron 38 ug/dL (27-139) 12/18/16 04:46 TIBC 168 ug/dL (250-450) L 12/18/16 04:46 Iron Saturation 23 % (15-55) 12/18/16 04:46 Unsaturated IBC 130 ug/dL (118-369) 12/18/16 04:46 Total Bilirubin 0.3 mg/dL (0.3-1.0) 12/21/16 06:41 AST 15 U/L (13-39) 12/21/16 06:41 ALT 28 U/L (7-52) 12/21/16 06:41 Alkaline Phosphatase 73 U/L (34-104) 12/21/16 06:41 Ammonia 36 umol/L (16-53) 12/19/16 19:22 C-Reactive Protein 19.8 mg/dL (0.0-0.9) H 12/19/16 04:40 B-Natriuretic Peptide 385.0 pg/mL (5.0-100.0) H 12/17/16 06:36 Total Protein 5.8 gm/dL (6.0-8.3) L 12/21/16 06:41 Albumin 2.3 gm/dL (3.7-5.3) L 12/21/16 06:41 Globulin 3.5 gm/dL 12/21/16 06:41 Albumin/Globulin Ratio 0.7 (1.0-1.8) L 12/21/16 06:41 TSH 1.38 uIU/ml (0.34-5.60) 12/17/16 06:36 Urine Source [place] 12/16/16 18:40 Urine Color YELLOW 12/16/16 18:40 Urine Clarity HAZY (CLEAR) 12/16/16 18:40 Urine pH >=9.0 12/16/16 18:40 Ur Specific [place] 1.010 (1.005-1.030) 12/16/16 18:40 Urine Protein >300 mg/dL (NEGATIVE) H 12/16/16 18:40 Urine Glucose (UA) 250 mg/dL (NEGATIVE) H 12/16/16 18:40 Urine Ketones NEGATIVE mg/dL (NEGATIVE) 12/16/16 18:40 Urine Blood NEGATIVE (NEGATIVE) 12/16/16 18:40 Urine Nitrate POSITIVE (NEGATIVE) H 12/16/16 18:40 Urine Bilirubin NEGATIVE (NEGATIVE) 12/16/16 18:40 Urine Urobilinogen 0.2 E.U./dL (0.2 - 1.0) 12/16/16 18:40 Ur Leukocyte Esterase SMALL (NEGATIVE) H 12/16/16 18:40 Urine RBC 0-2 /hpf (0-5) 12/16/16 18:40 Urine WBC 50-100 /hpf (0-5) H 12/16/16 18:40 Ur Epithelial Cells FEW /lpf (FEW) 12/16/16 18:40 Triple Phos Crystals FEW /hpf (FEW) 12/16/16 18:40 Urine Bacteria MANY /hpf (NONE SEEN) 12/16/16 18:40 Vancomycin Trough 27.2 ug/mL (10-20) H 12/21/16 08:30 Random Vancomycin 27.6 ug/mL (5.0-40.0) 12/20/16 04:40 Blood Type A POSITIVE 12/17/16 09:45 Antibody Screen NEGATIVE 12/17/16 09:45 Crossmatch See Detail 12/17/16 09:45 - Physical Exam Vitals and I&O: Vital Signs Temp 97.9 F 12/21/16 12:00 Pulse 92 12/21/16 16:16 Resp 20 12/21/16 16:16 BP 95/49 12/21/16 12:00 Pulse Ox 100 12/21/16 16:16 Intake & Output 12/20/16 12/21/16 12/21/16 18:59 06:59 18:59 Intake Total 1391.124 5391 200 Output Total 1060 Balance 1138.333 530 200 Weight (lbs) 58.967 kg 59.874 kg 60.237 kg Intake: Intake, IV Amount 8158.220 7601 200 DAPTOmycin 360 mg In 100 Sodium Chloride 0.9% 100 ml @ 100 mls/hr IV Q24H DC Rx#:[id number] KCL 20mEq/100mL Premix 20 100 meq In 100 ml @ 50 mls/ hr IV Q2H DC Rx#: [id number] Meropenem 1 gm In Sodium 100 100 100 Chloride 0.9% 100 ml @ 100 mls/hr IV Q12HR DC Rx#:[id number] Potassium Chloride 40 meq 838.333 700 In Dextrose 5% 1,000 ml @ 100 mls/hr IV .[id number] [facility] Rx#:[id number] Vancomycin HCl 1.25 gm In 250 Sodium Chloride 0.9% 250 ml @ 165 mls/hr IV Q24HR [facility] Rx#:[id number] metroNIDAZOLE 500mg/NS 100 100 100mL 500 mg In 100 ml @ 100 mls/hr IV Q8HR [facility] Rx #:[id number] Oral 0 Tube Feeding 240 Other 200 Output: Urine 1000 Other 60 Other: Stool Characteristics Liquid Liquid Liquid Brown Brown Brown Active Medications: Current Medications Acetaminophen (Tylenol 650mg/20.3ml Suspension) 650 mg GT Q6HR PRN PRN Reason: Pain or Fever >101 Stop: 02/14/17 21:15 Last Admin: 12/20/16 03:55 Dose: 650 mg Acetaminophen/Hydrocodone Bitart ([place] 5mg/325mg) 1 tab GT Q4H PRN PRN Reason: Pain (Severe) Stop: 02/14/17 21:15 Last Admin: 12/21/16 01:59 Dose: 1 tab Albuterol Sulfate (Albuterol 2.5mg/3ml Neb Ud) 2.5 mg HHN Q2HRT PRN PRN Reason: Shortness of Breath or Wheeze Stop: 02/14/17 21:19 Albuterol/Ipratropium (Duoneb Neb) 3 ml HHN Q6HRT [facility] Stop: 02/15/17 00:59 Last Admin: 12/21/16 16:16 Dose: 3 ml Ascorbic Acid (Vitamin C) 500 mg GT DAILY [facility] Stop: 02/15/17 08:59 Last Admin: 12/21/16 10:14 Dose: 500 mg Bisacodyl (Dulcolax 10 Mg Supp) 10 mg RC DAILY PRN PRN Reason: IF MOM INEFFECTIVE Stop: 02/14/17 21:15 Clonidine HCl (Catapres) 0.1 mg PO Q6H PRN PRN Reason: SBP GREATER THAN 160 Stop: 02/14/17 21:19 Diphenoxylate HCl/Atropine (Lomotil) 2 tab PO TID PRN PRN Reason: Diarrhea Stop: 02/19/17 12:01 Guaifenesin (Robitussin) 200 mg PO Q4HR PRN PRN Reason: Cough or Congestion Stop: 02/14/17 21:19 Meropenem 1 gm/ Sodium (Chloride) 100 mls @ 100 mls/hr IV Q12HR DC Stop: 02/16/17 12:59 Last Infusion: 12/21/16 11:15 Dose: Infused Potassium Chloride 40 meq/ (Dextrose) 1,020 mls @ 100 mls/hr IV .[id number] [facility] Stop: 02/17/17 15:41 Last Admin: 12/20/16 22:18 Dose: 100 mls/hr Daptomycin 360 mg/ Sodium (Chloride) 100 mls @ 100 mls/hr IV Q24H DC Stop: 02/19/17 11:14 Last Infusion: 12/21/16 12:49 Dose: Infused Lactated Ringer's (Lactated Ringer) 1,000 mls @ 0 mls/hr IV .Q0M DC PRN Reason: TKO Stop: 12/22/16 13:59 Insulin Aspart (Novolog Insulin Sliding Scale) 0 units SUBQ ACHS DC PRN Reason: Protocol Stop: 02/15/17 20:59 Last Admin: 12/21/16 12:16 Dose: Not Given Insulin Human NPH (Novolin N) 20 units SUBQ BIDAC DC PRN Reason: Protocol Stop: 02/16/17 07:29 Last Admin: 12/21/16 06:49 Dose: Not Given Ipratropium [place] (Atrovent Neb 0.5mg/2.5ml) 0.5 mg IH Q2HRT PRN PRN Reason: Shortness of Breath or Wheeze Stop: 02/14/17 21:19 Lactobacillus Rhamnosus (Culturelle) 1 each GT Q12H DC Stop: 02/14/17 21:29 Last Admin: 12/21/16 10:13 Dose: 1 each Loperamide HCl (Imodium 1mg/5ml Suspension) 2 mg GT Q4H PRN PRN Reason: Diarrhea Stop: 02/14/17 21:15 Lorazepam (Ativan) 0.5 mg GT Q6H PRN; Protocol PRN Reason: Anxiety Stop: 02/14/17 21:15 Last Admin: 12/18/16 23:53 Dose: 0.5 mg Meperidine HCl (Demerol) 12.5 mg IVP UD PRN PRN Reason: POST-OP PAIN Stop: 12/22/16 13:52 Midodrine (Proamatine) 10 mg PO TID [facility] Stop: 02/17/17 20:59 Miscellaneous (Probiotic Screen) 1 ea MC PRN PRN PRN Reason: PROTOCOL Stop: 02/15/17 15:43 Morphine Sulfate (Morphine) 2 mg IVP Q4H PRN PRN Reason: Severe Pain Stop: 02/16/17 10:57 Last Admin: 12/21/16 15:08 Dose: 2 mg Ondansetron HCl (Zofran) 4 mg IV Q8H PRN PRN Reason: Nausea / Vomiting Stop: 02/14/17 21:19 Last Admin: 12/17/16 12:53 Dose: 4 mg Pantoprazole Sodium (Protonix) 40 mg GT Q24H [facility] Stop: 02/14/17 21:29 Last Admin: 12/20/16 22:18 Dose: 40 mg Potassium Chloride (Potassium Chloride Elixir) 40 meq GT BID [facility] Stop: 12/23/16 09:59 Last Admin: 12/21/16 16:13 Dose: 40 meq General: Alert, No acute distress, Other (stuporous) HEENT: PERRLA Neck: Supple Cardiovascular: Regular rate Lungs: Clear to auscultation, Other (adeuqate air exchage) Abdomen: Bowel sounds (hyperactive), Soft, Distended (mildly) Extremities: Edema (none) - Procedures Procedures: Procedures Procedure Code Date ASSISTANCE WITH RESPIRATORY VENTILATION, 24-96 HRS, CPAP [id number] 09/12/16 BLOOD TRANSFUSION SERVICE 29943 12/16/16 [place] [id number] 04/15/16 IMMUNIZATION ADMIN [id number] 04/15/16 INSERT PICC CATH [id number] 04/15/16 INSERTION OF INFUSION DEVICE INTO R [facility], PERC APPROACH [id number] 04/15/16 INTRODUCTION OF SERUM/TOX/VACCINE INTO MUSCLE, PERC APPROACH [id number] 04/15/16 POS AIRWAY PRESSURE CPAP [id number] 09/12/16 TRANSFUSE NONAUT RED BLOOD CELLS IN PERIPH VEIN, PERC [id number] 12/16/16 Assessment/Plan - Problem List Patient Problems: All Active Problems MRSA (methicillin resistant Staphylococcus aureus) septicemia (Acute) A41.02 MRSA septicemia (Acute) proteus sepsis (Acute) proteus sepsis (Acute) proteus urinary tract infection (Acute) proteus urinary tract infection (Acute) FEVER WITH ELEVATED WBC, BUN (Acute) Hyperosmolality and hypernatremia (Acute) E87.0 Weakness (Acute) azotemia better (Acute) - Assessment Assessment: hypernatremia improving slowly with hypotonic fluid add free water via gt tube diet change improve diarrhea persistent hypokaklemia both renal and gi loss givenk supplement MRSA sepsis now on vanco - Plan Plan: will change fluid to d5w and just cover glucose with higher dose of insulin glucoscan coverage diarrhea will check c diff plus change feed to glucerna less hyperosmotic hopefully tolerate with less diarrhea free water added MRSA sepsis on vanco meropenem, having echo looking for Bascterial vegetation Nutritional Asmnt/Malnutr-PDOC - Dietary Evaluation Malnutrition Findings (Please click <Entered> for more info): Nutritional Asmnt/Malnutrition Start: 12/18/16 14: 50 Text: Status: Complete Freq: Document 12/18/16 14:51 GSUN (Rec: 12/18/16 15:26 GSUN [email or web address]) Nutritional Asmnt/Malnutrition Patient General Information Nutritional Screening Consult Diagnosis Sepsis, sepsis shock, sacral wound stage 4, DM2, diarrhea, CKD vs PER CKD Pertinent Medical Hx/Surgical Hx HTN, bronchitis, penumonia, dementia, constipation, GERD, gastritis, anxiety, psychosis, muscle atrophy, weakness, stiffness, acute renal failure , UTI, osteoporosis Subjective Information 66 year old female from SNF. RD consult for wound. Pt noted with consistent diarrhea. Spoke to Dr. Gonzalez on the phone this AM. Current diet order per Nutren 1.0 at 40ml/hr vs Glucerna at 40ml/hr . RD called Dr. Gonzalez back for clarification at around 11 :30am, waiting for callback. RD endorsed to RN Nabila regarding enteral feeding recommendations. Plan for aggressiveh dyration noted in MD notes, also noted just cover glucose with higher dose of insulin. Observed Diabetisource running at 50ml/ hr during visit. No severe muscle/fat wasting noted. CBW 133.3lb with equipment removed . Current Diet Order/ Nutrition Support Glucerna 40ml/hr vs Nutren 1.0 40ml/hr Pertinent Medications Vitamin C, D5W, Novolog, Novolin, Culturelle, Flagyl, Vancomycin, Morphine, Zofran, Protonix Pertinent Labs 12/16: A1c 7.1H 12/18: sodium 164H, BUN 121H, creatinine 2.4H, glucose 326H Nutritional Hx/Data Height 1.63 m Height (Calculated Centimeters) 162.6 Current Weight (lbs) 60.464 kg Weight (Calculated Kilograms) 60.5 Weight (Calculated Grams) 27125.9 [place] Body Weight 120 Weight Status Approriate GI Symptoms GI Symptoms Diarrhea Difficult in: Chewing Swallowing Usual diet at home [place] Care: Jevity 1.2 at 70ml/hr x 20hrs, prostat Skin Integrity/Comment: Ruslan 11. note: sacral wound stage 4 Estimated Nutritional Goals Calories/Kcals/Kg IBW 120lb/54.5kg due to questionable weights obtained Kcals Calculated 1635-1980kcal (30-35kcal/kg, sepsis, skin integrity, bedridden) Protein Calculated 76-98g (1.4-1.8g/kg, renal vs sacral wound stage 4) Fluid: ml Per MD (plan for aggressive hydration) Nutritional Problem 3. Problem Problem Increased kcal andp rot needs realted to Etiology hypermetabolic state, skin integrity aeb Signs/Symptoms: sepsis, sacral wound stage 4 2. Problem Problem Altered nutrition related laboratory values related to Etiology DM aeb Signs/Symptoms: A1c 7.1, glucose >180 1. Problem Problem Altered GI function related to Etiology unknown etiology aeb Signs/Symptoms: consistent diarrhea Intervention/Recommendation Comments 1. Current diet order reads: Nutren 1.0 at 40ml/hr with comment Glucerna ( Diabetisource) at 40ml/hr, providing to meet 59% and 70%, respectively, of lower end of kcal needs. RD called Dr. Gonzalez 11:30am to clarify order, waiting for call back. Current MDs' nutrition related plan of care: aggressive hydration, resolve diarrhea. 2. Recommend Diabetisource at 60ml/hr, providing 1440ml total volume, 1728kcal to meet 100% of lower end of kcal needs, and 86g protein. OR if kept with Nutren 1.0, recommend 1 packet Prosource via tube, 1 packet Arginaid via tube, rate at 70ml/hr, prvoiding 1680ml total volume, 1680kcal, 67g protein from tube feeding. Expected Outcomes/Goals Expected Outcomes/Goals 1. Diarrhea to resolve. 2. Pt to meet 100% of estimated nutritional needs on tube feeding with tolerance.
[2016-12-21] MEDS: Pantoprazole 40 mg/Packet GT SCH (22:28)
[2016-12-22] MEDS: Albuterol/Ipratropium Neb 3 ML AERS HHN SCH ×4 (01:17→19:21)
[2016-12-22 06:30] LABS: HEMATOCRIT 24.8 % (35.0-45.0); HEMOGLOBIN 8.3 gm/dL (11.7-16.1); MEAN CELL VOLUME 88.2 fl (81-100); MEAN CORPUSCULAR HEMOGLOBIN 29.4 pg (27.0-31.0); MEAN CORPUSCULAR HGB CONC 33.4 pg (28.0-36.0); MEAN PLATELET VOLUME 11.2 fl; RED BLOOD COUNT 2.82 Mil/cmm (3.80-5.20)
[2016-12-22] MEDS: INSULIN HUMAN ISOPHANE (NPH) 100 UNITS/ML SUBQ SCH ×2 (06:32→17:19)
[2016-12-22] MEDS: Hydrocodone/APAP 5mg/325mg Tab GT PRN (06:32)
[2016-12-22 06:46] LABS: PLATELET COUNT 229 Th/cmm (150-400); WHITE BLOOD COUNT 15.8 Th/cmm (4.8-10.8)
[2016-12-22 06:49] LABS: ALB/GLOB RATIO 0.7 (1.0-1.8); ALKALINE PHOSPHATASE 77 U/L (34-104); ANION GAP 10.9 (7.0-16.0); BILIRUBIN,TOTAL 0.3 mg/dL (0.3-1.0); BUN - UREA NITROGEN 39 mg/dL (7-25); BUN/CREATININE RATIO 48.8; CALCIUM SERUM 6.4 mg/dL (8.6-10.3); CHLORIDE 124 mEq/L (98-107); CREATININE - SERUM 0.8 mg/dL (0.6-1.2); GLUCOSE 158 mg/dL (70-105); SGOT 16 U/L (13-39); SGPT/ALT 22 U/L (7-52); SODIUM SERUM 148 mEq/L (136-145)
[2016-12-22 07:06] LABS: POTASSIUM SERUM 6.9 mEq/L (3.5-5.1)
[2016-12-22 07:23] LABS: BAND NEUTROPHILE 4 % (0-10); EOSINOPHIL 6 % (0-5); NEUTROPHILS 66 % (40-80); PLATELET ESTIMATE ADEQUATE (NORMAL); TOTAL CELLS COUNTED 100
[2016-12-22] MEDS: INSULIN ASPART SLIDING SCALE 100 UNITS/ML UNIT SUBQ SCH ×4 (07:30→21:58)
[2016-12-22] MEDS: Venelex 60gm Tube TP SCH (09:00)
[2016-12-22 09:02] LABS: ANION GAP 8.8 (7.0-16.0); BUN - UREA NITROGEN 39 mg/dL (7-25); BUN/CREATININE RATIO 48.8; CALCIUM SERUM 8.3 mg/dL (8.6-10.3); CARBON DIOXIDE 18.8 mEq/L (21.0-31.0); CHLORIDE 124 mEq/L (98-107); CREATININE - SERUM 0.8 mg/dL (0.6-1.2); GLUCOSE 149 mg/dL (70-105); POTASSIUM SERUM 5.6 mEq/L (3.5-5.1); SODIUM SERUM 146 mEq/L (136-145)
[2016-12-22] MEDS: Meropenem 1 GM in Sodium Chloride 0.9% 100 ML IV SCH ×2 (09:12→21:43)
[2016-12-22] MEDS: Multivitamin w/ Minerals Tab GT SCH (09:16)
[2016-12-22] MEDS: Ascorbic Acid 500 mg/5 mL UDC GT SCH (09:16)
[2016-12-22] MEDS: Lactobacillus Rhamnosus 10 Billion CFU Capsule GT SCH ×2 (09:16→21:46)
[2016-12-22] MEDS: Potassium Chloride Elixir 20 mEq /15 mL UDC GT SCH ×2 (09:18→16:48)
[2016-12-22] MEDS: D5-0.45NS 1,000 ML IV SCH ×2 (11:45→21:41)
--- NOTE | 2016-12-22 13:08 | Diagnostic Imaging Report ---
Portable chest x-ray HISTORY: Shortness of breath, vascular catheter placement Compared to prior exam of December 20, 2016, a left-sided vascular catheter has been inserted. The tip is in the region of the superior vena cava. No focal pulmonary processes. IMPRESSION: 1. New vascular catheter placement as noted above 2. No focal pulmonary processes
--- NOTE | 2016-12-22 14:54 | General Progress Note ---
Subjective - Review of Systems Service Date: 12/22/16 Subjective: Sleeping, comfortable Objective - Results Result Diagrams: 12/22/16 06:12 12/22/16 08:20 Recent Labs: Laboratory Last Values WBC 15.8 Th/cmm (4.8-10.8) H D 12/22/16 06:12 RBC 2.82 Mil/cmm (3.80-5.20) L 12/22/16 06:12 Hgb 8.3 gm/dL (11.7-16.1) L 12/22/16 06:12 Hct 24.8 % (35.0-45.0) L 12/22/16 06:12 MCV 88.2 fl (81-100) 12/22/16 06:12 MCH 29.4 pg (27.0-31.0) 12/22/16 06:12 MCHC Differential 33.4 pg (28.0-36.0) 12/22/16 06:12 RDW 17.0 % (11.5-20.0) 12/22/16 06:12 Plt Count 229 Th/cmm (150-400) D 12/22/16 06:12 MPV 11.2 fl 12/22/16 06:12 Neutrophils % 76.3 % (40.0-80.0) 12/21/16 06:41 Band Neutrophils % 4 % (0-10) 12/22/16 06:12 Lymphocytes % 15.9 % (20.0-50.0) L 12/21/16 06:41 Monocytes % 3.8 % (2.0-10.0) 12/21/16 06:41 Eosinophils % 3.7 % (0.0-5.0) 12/21/16 06:41 Basophils % 0.3 % (0.0-2.0) 12/21/16 06:41 Neutrophils (Manual) 66 % (40-80) 12/22/16 06:12 Lymphocytes 20 % (20-50) 12/22/16 06:12 Monocytes 4 % (2-10) 12/22/16 06:12 Eosinophils 6 % (0-5) H 12/22/16 06:12 Platelet Estimate ADEQUATE (NORMAL) 12/22/16 06:12 Platelet Morphology NORMAL (NORMAL) 12/18/16 04:46 Polychromasia 1+ 12/17/16 06:36 Anisocytosis 1+ 12/18/16 04:46 RBC Morph Micro Appear ABNORMAL (NORMAL) 12/18/16 04:46 ESR > 140 mm/hr (0-30) H 12/19/16 04:40 PT 10.2 SECONDS (9.5-11.5) 12/21/16 08:30 INR 0.98 (0.5-1.4) 12/21/16 08:30 PTT (Actin FS) 24.7 SECONDS (26.0-38.0) L 12/21/16 08:30 Sodium 146 mEq/L (136-145) H 12/22/16 08:20 Potassium 5.6 mEq/L (3.5-5.1) H 12/22/16 08:20 Chloride 124 mEq/L (98-107) H 12/22/16 08:20 Carbon Dioxide 18.8 mEq/L (21.0-31.0) L 12/22/16 08:20 Anion Gap 8.8 (7.0-16.0) 12/22/16 08:20 BUN 39 mg/dL (7-25) H 12/22/16 08:20 Creatinine 0.8 mg/dL (0.6-1.2) 12/22/16 08:20 Est GFR ( Amer) > 60.0 ml/min (>90) 12/22/16 08:20 Est GFR (Non-Af Amer) > 60.0 ml/min 12/22/16 08:20 BUN/Creatinine Ratio 48.8 12/22/16 08:20 Glucose 149 mg/dL (70-105) H 12/22/16 08:20 POC Glucose 104 MG/DL (70 - 105) 12/22/16 11:39 Hemoglobin A1c % 7.1 % (4.0-6.0) H 12/16/16 18:45 Whole Bld Lactic Acid 1.42 mmol/L (0.60-1.99) 12/20/16 04:40 Calcium 8.3 mg/dL (8.6-10.3) L 12/22/16 08:20 Magnesium 2.0 mg/dL (1.9-2.7) 12/20/16 04:40 Iron 38 ug/dL (27-139) 12/18/16 04:46 TIBC 168 ug/dL (250-450) L 12/18/16 04:46 Iron Saturation 23 % (15-55) 12/18/16 04:46 Unsaturated IBC 130 ug/dL (118-369) 12/18/16 04:46 Total Bilirubin 0.3 mg/dL (0.3-1.0) 12/22/16 06:12 AST 16 U/L (13-39) 12/22/16 06:12 ALT 22 U/L (7-52) 12/22/16 06:12 Alkaline Phosphatase 77 U/L (34-104) 12/22/16 06:12 Ammonia 36 umol/L (16-53) 12/19/16 19:22 C-Reactive Protein 19.8 mg/dL (0.0-0.9) H 12/19/16 04:40 B-Natriuretic Peptide 385.0 pg/mL (5.0-100.0) H 12/17/16 06:36 Total Protein 6.0 gm/dL (6.0-8.3) 12/22/16 06:12 Albumin 2.4 gm/dL (3.7-5.3) L 12/22/16 06:12 Globulin 3.6 gm/dL 12/22/16 06:12 Albumin/Globulin Ratio 0.7 (1.0-1.8) L 12/22/16 06:12 TSH 1.38 uIU/ml (0.34-5.60) 12/17/16 06:36 Urine Source [place] 12/16/16 18:40 Urine Color YELLOW 12/16/16 18:40 Urine Clarity HAZY (CLEAR) 12/16/16 18:40 Urine pH >=9.0 12/16/16 18:40 Ur Specific [place] 1.010 (1.005-1.030) 12/16/16 18:40 Urine Protein >300 mg/dL (NEGATIVE) H 12/16/16 18:40 Urine Glucose (UA) 250 mg/dL (NEGATIVE) H 12/16/16 18:40 Urine Ketones NEGATIVE mg/dL (NEGATIVE) 12/16/16 18:40 Urine Blood NEGATIVE (NEGATIVE) 12/16/16 18:40 Urine Nitrate POSITIVE (NEGATIVE) H 12/16/16 18:40 Urine Bilirubin NEGATIVE (NEGATIVE) 12/16/16 18:40 Urine Urobilinogen 0.2 E.U./dL (0.2 - 1.0) 12/16/16 18:40 Ur Leukocyte Esterase SMALL (NEGATIVE) H 12/16/16 18:40 Urine RBC 0-2 /hpf (0-5) 12/16/16 18:40 Urine WBC 50-100 /hpf (0-5) H 12/16/16 18:40 Ur Epithelial Cells FEW /lpf (FEW) 12/16/16 18:40 Triple Phos Crystals FEW /hpf (FEW) 12/16/16 18:40 Urine Bacteria MANY /hpf (NONE SEEN) 12/16/16 18:40 Vancomycin Trough 27.2 ug/mL (10-20) H 12/21/16 08:30 Random Vancomycin 20.5 ug/mL (5.0-40.0) 12/22/16 06:12 Blood Type A POSITIVE 12/17/16 09:45 Antibody Screen NEGATIVE 12/17/16 09:45 Crossmatch See Detail 12/17/16 09:45 - Physical Exam Vitals and I&O: Vital Signs Temp 98.7 F 12/22/16 12:00 Pulse 85 12/22/16 12:00 Resp 20 12/22/16 12:00 BP 99/55 12/22/16 12:00 Pulse Ox 98 12/22/16 12:00 Intake & Output 12/21/16 12/22/16 12/22/16 18:59 06:59 18:59 Intake Total 1220 900 Output Total 900 Balance 1220 0 Weight (lbs) 60.237 kg 63.276 kg Intake: Intake, IV Amount 1220 100 DAPTOmycin 360 mg In 100 Sodium Chloride 0.9% 100 ml @ 100 mls/hr IV Q24H DC Rx#:[id number] Meropenem 1 gm In Sodium 100 100 Chloride 0.9% 100 ml @ 100 mls/hr IV Q12HR DC Rx#:[id number] Potassium Chloride 40 meq 1020 In Dextrose 5% 1,000 ml @ 100 mls/hr IV .[id number] DC Rx#:[id number] Tube Feeding 800 Output: Urine 800 Other 100 Other: Stool Characteristics Liquid Liquid Liquid Brown Brown Brown Active Medications: Current Medications Acetaminophen (Tylenol 650mg/20.3ml Suspension) 650 mg GT Q6HR PRN PRN Reason: Pain or Fever >101 Stop: 02/14/17 21:15 Last Admin: 12/20/16 03:55 Dose: 650 mg Acetaminophen/Hydrocodone Bitart ([place] 5mg/325mg) 1 tab GT Q4H PRN PRN Reason: Pain (Severe) Stop: 02/14/17 21:15 Last Admin: 12/22/16 06:32 Dose: 1 tab Albuterol Sulfate (Albuterol 2.5mg/3ml Neb Ud) 2.5 mg HHN Q2HRT PRN PRN Reason: Shortness of Breath or Wheeze Stop: 02/14/17 21:19 Albuterol/Ipratropium (Duoneb Neb) 3 ml HHN Q6HRT DC Stop: 02/15/17 00:59 Last Admin: 12/22/16 12:18 Dose: 3 ml Ascorbic Acid (Vitamin C) 500 mg GT DAILY [facility] Stop: 02/15/17 08:59 Last Admin: 12/22/16 09:16 Dose: 500 mg Bisacodyl (Dulcolax 10 Mg Supp) 10 mg RC DAILY PRN PRN Reason: IF MOM INEFFECTIVE Stop: 02/14/17 21:15 Clonidine HCl (Catapres) 0.1 mg PO Q6H PRN PRN Reason: SBP GREATER THAN 160 Stop: 02/14/17 21:19 Diphenoxylate HCl/Atropine (Lomotil) 2 tab PO TID PRN PRN Reason: Diarrhea Stop: 02/19/17 12:01 Guaifenesin (Robitussin) 200 mg PO Q4HR PRN PRN Reason: Cough or Congestion Stop: 02/14/17 21:19 Meropenem 1 gm/ Sodium (Chloride) 100 mls @ 100 mls/hr IV Q12HR [facility] Stop: 02/16/17 12:59 Last Admin: 12/22/16 09:12 Dose: 100 mls/hr Daptomycin 360 mg/ Sodium (Chloride) 100 mls @ 100 mls/hr IV Q24H [facility] Stop: 02/19/17 11:14 Last Admin: 12/22/16 11:44 Dose: 100 mls/hr Dextrose/Sodium Chloride (D5-0.45ns) 1,000 mls @ 100 mls/hr IV .Q10H [facility] Stop: 02/20/17 09:54 Last Admin: 12/22/16 11:45 Dose: 100 mls/hr Insulin Aspart (Novolog Insulin Sliding Scale) 0 units SUBQ ACHS DC PRN Reason: Protocol Stop: 02/15/17 20:59 Last Admin: 12/21/16 22:33 Dose: Not Given Insulin Human NPH (Novolin N) 20 units SUBQ BIDAC DC PRN Reason: Protocol Stop: 02/16/17 07:29 Last Admin: 12/22/16 06:32 Dose: 20 units Ipratropium [place] (Atrovent Neb 0.5mg/2.5ml) 0.5 mg IH Q2HRT PRN PRN Reason: Shortness of Breath or Wheeze Stop: 02/14/17 21:19 Lactobacillus Rhamnosus (Culturelle) 1 each GT Q12H [facility] Stop: 02/14/17 21:29 Last Admin: 12/22/16 09:16 Dose: 1 each Loperamide HCl (Imodium 1mg/5ml Suspension) 2 mg GT Q4H PRN PRN Reason: Diarrhea Stop: 02/14/17 21:15 Lorazepam (Ativan) 0.5 mg GT Q6H PRN; Protocol PRN Reason: Anxiety Stop: 02/14/17 21:15 Last Admin: 12/18/16 23:53 Dose: 0.5 mg Midodrine (Proamatine) 10 mg PO TID [facility] Stop: 02/17/17 20:59 Last Admin: 12/22/16 13:55 Dose: 10 mg Miscellaneous (Probiotic Screen) 1 ea MC PRN PRN PRN Reason: PROTOCOL Stop: 02/15/17 15:43 Morphine Sulfate (Morphine) 2 mg IVP Q4H PRN PRN Reason: Severe Pain Stop: 02/16/17 10:57 Last Admin: 12/21/16 18:36 Dose: 2 mg Ondansetron HCl (Zofran) 4 mg IV Q8H PRN PRN Reason: Nausea / Vomiting Stop: 02/14/17 21:19 Last Admin: 12/17/16 12:53 Dose: 4 mg Pantoprazole Sodium (Protonix) 40 mg GT Q24H [facility] Stop: 02/14/17 21:29 Last Admin: 12/21/16 22:28 Dose: 40 mg Potassium Chloride (Potassium Chloride Elixir) 40 meq GT BID DC Stop: 12/23/16 09:59 Last Admin: 12/22/16 09:18 Dose: Not Given General: Alert, No acute distress HEENT: PERRLA, Mucous membr. moist/pink Neck: Supple Cardiovascular: Regular rate, Normal S1, Normal S2 Lungs: Clear to auscultation, Other (adeuqate air exchage) Abdomen: Bowel sounds (hyperactive), Soft, Distended (mildly) Extremities: no Edema (none) Neurological: Sensation intact Skin: no Rash Psych/Mental Status: Mood NL - Procedures Procedures: Procedures Procedure Code Date ASSISTANCE WITH RESPIRATORY VENTILATION, 24-96 HRS, CPAP [id number] 09/12/16 BLOOD TRANSFUSION SERVICE 01514 12/16/16 [place] [id number] 04/15/16 IMMUNIZATION ADMIN [id number] 04/15/16 INSERT PICC CATH 30426 04/15/16 INSERTION OF INFUSION DEVICE INTO R ATRIUM, PERC APPROACH 12H202T 04/15/16 INTRODUCTION OF SERUM/TOX/VACCINE INTO MUSCLE, PERC APPROACH 1S7006N 04/15/16 POS AIRWAY PRESSURE CPAP 02921 09/12/16 TRANSFUSE NONAUT RED BLOOD CELLS IN PERIPH VEIN, PERC 75422T9 12/16/16 Assessment/Plan - Problem List Patient Problems: All Active Problems MRSA (methicillin resistant Staphylococcus aureus) septicemia (Acute) A41.02 MRSA septicemia (Acute) proteus sepsis (Acute) proteus sepsis (Acute) proteus urinary tract infection (Acute) proteus urinary tract infection (Acute) FEVER WITH ELEVATED WBC, BUN (Acute) Hyperosmolality and hypernatremia (Acute) E87.0 Weakness (Acute) azotemia better (Acute) - Assessment Assessment: Prerenal azotemia Hypernatremia secondary to dehydration MRSA septicemia Hyperkalemia secondary to replacement Anemia of chronic disease Non-gap metabolic acidosis - Plan Plan: Lab - Result Diagrams 12/22/16 06:12 12/22/16 08:20 Current Medications Acetaminophen (Tylenol 650mg/20.3ml Suspension) 650 mg GT Q6HR PRN PRN Reason: Pain or Fever >101 Stop: 02/14/17 21:15 Last Admin: 12/20/16 03:55 Dose: 650 mg Acetaminophen/Hydrocodone Bitart ([place] 5mg/325mg) 1 tab GT Q4H PRN PRN Reason: Pain (Severe) Stop: 02/14/17 21:15 Last Admin: 12/22/16 06:32 Dose: 1 tab Albuterol Sulfate (Albuterol 2.5mg/3ml Neb Ud) 2.5 mg HHN Q2HRT PRN PRN Reason: Shortness of Breath or Wheeze Stop: 02/14/17 21:19 Albuterol/Ipratropium (Duoneb Neb) 3 ml HHN Q6HRT DC Stop: 02/15/17 00:59 Last Admin: 12/22/16 12:18 Dose: 3 ml Ascorbic Acid (Vitamin C) 500 mg GT DAILY DC Stop: 02/15/17 08:59 Last Admin: 12/22/16 09:16 Dose: 500 mg Bisacodyl (Dulcolax 10 Mg Supp) 10 mg RC DAILY PRN PRN Reason: IF MOM INEFFECTIVE Stop: 02/14/17 21:15 Clonidine HCl (Catapres) 0.1 mg PO Q6H PRN PRN Reason: SBP GREATER THAN 160 Stop: 02/14/17 21:19 Diphenoxylate HCl/Atropine (Lomotil) 2 tab PO TID PRN PRN Reason: Diarrhea Stop: 02/19/17 12:01 Guaifenesin (Robitussin) 200 mg PO Q4HR PRN PRN Reason: Cough or Congestion Stop: 02/14/17 21:19 Meropenem 1 gm/ Sodium (Chloride) 100 mls @ 100 mls/hr IV Q12HR [facility] Stop: 02/16/17 12:59 Last Admin: 12/22/16 09:12 Dose: 100 mls/hr Daptomycin 360 mg/ Sodium (Chloride) 100 mls @ 100 mls/hr IV Q24H [facility] Stop: 02/19/17 11:14 Last Admin: 12/22/16 11:44 Dose: 100 mls/hr Dextrose/Sodium Chloride (D5-0.45ns) 1,000 mls @ 100 mls/hr IV .Q10H [facility] Stop: 02/20/17 09:54 Last Admin: 12/22/16 11:45 Dose: 100 mls/hr Insulin Aspart (Novolog Insulin Sliding Scale) 0 units SUBQ ACHS DC PRN Reason: Protocol Stop: 02/15/17 20:59 Last Admin: 12/21/16 22:33 Dose: Not Given Insulin Human NPH (Novolin N) 20 units SUBQ BIDAC DC PRN Reason: Protocol Stop: 02/16/17 07:29 Last Admin: 12/22/16 06:32 Dose: 20 units Ipratropium [place] (Atrovent Neb 0.5mg/2.5ml) 0.5 mg IH Q2HRT PRN PRN Reason: Shortness of Breath or Wheeze Stop: 02/14/17 21:19 Lactobacillus Rhamnosus (Culturelle) 1 each GT Q12H DC Stop: 02/14/17 21:29 Last Admin: 12/22/16 09:16 Dose: 1 each Loperamide HCl (Imodium 1mg/5ml Suspension) 2 mg GT Q4H PRN PRN Reason: Diarrhea Stop: 02/14/17 21:15 Lorazepam (Ativan) 0.5 mg GT Q6H PRN; Protocol PRN Reason: Anxiety Stop: 02/14/17 21:15 Last Admin: 12/18/16 23:53 Dose: 0.5 mg Midodrine (Proamatine) 10 mg PO TID DC Stop: 02/17/17 20:59 Last Admin: 12/22/16 13:55 Dose: 10 mg Miscellaneous (Probiotic Screen) 1 ea MC PRN PRN PRN Reason: PROTOCOL Stop: 02/15/17 15:43 Morphine Sulfate (Morphine) 2 mg IVP Q4H PRN PRN Reason: Severe Pain Stop: 02/16/17 10:57 Last Admin: 12/21/16 18:36 Dose: 2 mg Ondansetron HCl (Zofran) 4 mg IV Q8H PRN PRN Reason: Nausea / Vomiting Stop: 02/14/17 21:19 Last Admin: 12/17/16 12:53 Dose: 4 mg Pantoprazole Sodium (Protonix) 40 mg GT Q24H DC Stop: 02/14/17 21:29 Last Admin: 12/21/16 22:28 Dose: 40 mg Potassium Chloride (Potassium Chloride Elixir) 40 meq GT BID DC Stop: 12/23/16 09:59 Last Admin: 12/22/16 09:18 Dose: Not Given Maintain IV hydration Continue feedings Follow-up electrolytes and CBC Add sodium bicarbonate Nutritional Asmnt/Malnutr-PDOC - Dietary Evaluation Malnutrition Findings (Please click <Entered> for more info): Nutritional Asmnt/Malnutrition Start: 12/18/16 14: 50 Text: Status: Complete Freq: Document 12/18/16 14:51 CHUY (Rec: 12/18/16 15:26 GSUN [email or web address]) Nutritional Asmnt/Malnutrition Patient General Information Nutritional Screening Consult Diagnosis Sepsis, sepsis shock, sacral wound stage 4, DM2, diarrhea, CKD vs PER CKD Pertinent Medical Hx/Surgical Hx HTN, bronchitis, penumonia, dementia, constipation, GERD, gastritis, anxiety, psychosis, muscle atrophy, weakness, stiffness, acute renal failure , UTI, osteoporosis Subjective Information 66 year old female from SNF. RD consult for wound. Pt noted with consistent diarrhea. Spoke to Dr. Gonzalez on the phone this AM. Current diet order per Nutren 1.0 at 40ml/hr vs Glucerna at 40ml/hr . RD called Dr. Gonzalez back for clarification at around 11 :30am, waiting for callback. RD endorsed to RN Nabila regarding enteral feeding recommendations. Plan for aggressiveh dyration noted in MD notes, also noted just cover glucose with higher dose of insulin. Observed Diabetisource running at 50ml/ hr during visit. No severe muscle/fat wasting noted. CBW 133.3lb with equipment removed . Current Diet Order/ Nutrition Support Glucerna 40ml/hr vs Nutren 1.0 40ml/hr Pertinent Medications Vitamin C, D5W, Novolog, Novolin, Culturelle, Flagyl, Vancomycin, Morphine, Zofran, Protonix Pertinent Labs 12/16: A1c 7.1H 10: sodium 164H, BUN 121H, creatinine 2.4H, glucose 326H Nutritional Hx/Data Height 1.63 m Height (Calculated Centimeters) 162.6 Current Weight (lbs) 60.464 kg Weight (Calculated Kilograms) 60.5 Weight (Calculated Grams) 86991.9 [place] Body Weight 120 Weight Status Approriate GI Symptoms GI Symptoms Diarrhea Difficult in: Chewing Swallowing Usual diet at home [place] Care: Jevity 1.2 at 70ml/hr x 20hrs, prostat Skin Integrity/Comment: Ruslan Oro. note: sacral wound stage 4 Estimated Nutritional Goals Calories/Kcals/Kg IBW 120lb/54.5kg due to questionable weights obtained Kcals Calculated 1635-1980kcal (30-35kcal/kg, sepsis, skin integrity, bedridden) Protein Calculated 76-98g (1.4-1.8g/kg, renal vs sacral wound stage 4) Fluid: ml Per MD (plan for aggressive hydration) Nutritional Problem 3. Problem Problem Increased kcal andp rot needs realted to Etiology hypermetabolic state, skin integrity aeb Signs/Symptoms: sepsis, sacral wound stage 4 2. Problem Problem Altered nutrition related laboratory values related to Etiology DM aeb Signs/Symptoms: A1c 7.1, glucose >180 1. Problem Problem Altered GI function related to Etiology unknown etiology aeb Signs/Symptoms: consistent diarrhea Intervention/Recommendation Comments 1. Current diet order reads: Nutren 1.0 at 40ml/hr with comment Glucerna ( Diabetisource) at 40ml/hr, providing to meet 59% and 70%, respectively, of lower end of kcal needs. RD called Dr. Gonzalez 11:30am to clarify order, waiting for call back. Current MDs' nutrition related plan of care: aggressive hydration, resolve diarrhea. 2. Recommend Diabetisource at 60ml/hr, providing 1440ml total volume, 1728kcal to meet 100% of lower end of kcal needs, and 86g protein. OR if kept with Nutren 1.0, recommend 1 packet Prosource via tube, 1 packet Arginaid via tube, rate at 70ml/hr, prvoiding 1680ml total volume, 1680kcal, 67g protein from tube feeding. Expected Outcomes/Goals Expected Outcomes/Goals 1. Diarrhea to resolve. 2. Pt to meet 100% of estimated nutritional needs on tube feeding with tolerance.
[2016-12-22] MEDS: Pantoprazole 40 mg/Packet GT SCH (21:46)
--- NOTE | 2016-12-22 21:48 | Infectious Disease Prog Note ---
Infectious Disease Subjective - Review of Systems Service Date: 12/22/16 Events since last encounter: Debridement of the sacral wound performed. Subjective: patient remains confused. She continues to have diarrhea, and has rectal tube in place. afebrile today. Infectious Disease Objective - Results Result Diagrams: 12/22/16 06:12 12/22/16 08:20 Recent Labs: Laboratory Last Values WBC 15.8 Th/cmm (4.8-10.8) H D 12/22/16 06:12 RBC 2.82 Mil/cmm (3.80-5.20) L 12/22/16 06:12 Hgb 8.3 gm/dL (11.7-16.1) L 12/22/16 06:12 Hct 24.8 % (35.0-45.0) L 12/22/16 06:12 MCV 88.2 fl (81-100) 12/22/16 06:12 MCH 29.4 pg (27.0-31.0) 12/22/16 06:12 MCHC Differential 33.4 pg (28.0-36.0) 12/22/16 06:12 RDW 17.0 % (11.5-20.0) 12/22/16 06:12 Plt Count 229 Th/cmm (150-400) D 12/22/16 06:12 MPV 11.2 fl 12/22/16 06:12 Neutrophils % 76.3 % (40.0-80.0) 12/21/16 06:41 Band Neutrophils % 4 % (0-10) 12/22/16 06:12 Lymphocytes % 15.9 % (20.0-50.0) L 12/21/16 06:41 Monocytes % 3.8 % (2.0-10.0) 12/21/16 06:41 Eosinophils % 3.7 % (0.0-5.0) 12/21/16 06:41 Basophils % 0.3 % (0.0-2.0) 12/21/16 06:41 Neutrophils (Manual) 66 % (40-80) 12/22/16 06:12 Lymphocytes 20 % (20-50) 12/22/16 06:12 Monocytes 4 % (2-10) 12/22/16 06:12 Eosinophils 6 % (0-5) H 12/22/16 06:12 Platelet Estimate ADEQUATE (NORMAL) 12/22/16 06:12 Platelet Morphology NORMAL (NORMAL) 12/18/16 04:46 Polychromasia 1+ 12/17/16 06:36 Anisocytosis 1+ 12/18/16 04:46 RBC Morph Micro Appear ABNORMAL (NORMAL) 12/18/16 04:46 ESR > 140 mm/hr (0-30) H 12/19/16 04:40 PT 10.2 SECONDS (9.5-11.5) 12/21/16 08:30 INR 0.98 (0.5-1.4) 12/21/16 08:30 PTT (Actin FS) 24.7 SECONDS (26.0-38.0) L 12/21/16 08:30 Sodium 146 mEq/L (136-145) H 12/22/16 08:20 Potassium 5.6 mEq/L (3.5-5.1) H 12/22/16 08:20 Chloride 124 mEq/L (98-107) H 12/22/16 08:20 Carbon Dioxide 18.8 mEq/L (21.0-31.0) L 12/22/16 08:20 Anion Gap 8.8 (7.0-16.0) 12/22/16 08:20 BUN 39 mg/dL (7-25) H 12/22/16 08:20 Creatinine 0.8 mg/dL (0.6-1.2) 12/22/16 08:20 Est GFR ( Amer) > 60.0 ml/min (>90) 12/22/16 08:20 Est GFR (Non-Af Amer) > 60.0 ml/min 12/22/16 08:20 BUN/Creatinine Ratio 48.8 12/22/16 08:20 Glucose 149 mg/dL (70-105) H 12/22/16 08:20 POC Glucose 104 MG/DL (70 - 105) 12/22/16 11:39 Hemoglobin A1c % 7.1 % (4.0-6.0) H 12/16/16 18:45 Whole Bld Lactic Acid 1.42 mmol/L (0.60-1.99) 12/20/16 04:40 Calcium 8.3 mg/dL (8.6-10.3) L 12/22/16 08:20 Magnesium 2.0 mg/dL (1.9-2.7) 12/20/16 04:40 Iron 38 ug/dL (27-139) 12/18/16 04:46 TIBC 168 ug/dL (250-450) L 12/18/16 04:46 Iron Saturation 23 % (15-55) 12/18/16 04:46 Unsaturated IBC 130 ug/dL (118-369) 12/18/16 04:46 Total Bilirubin 0.3 mg/dL (0.3-1.0) 12/22/16 06:12 AST 16 U/L (13-39) 12/22/16 06:12 ALT 22 U/L (7-52) 12/22/16 06:12 Alkaline Phosphatase 77 U/L (34-104) 12/22/16 06:12 Ammonia 36 umol/L (16-53) 12/19/16 19:22 C-Reactive Protein 19.8 mg/dL (0.0-0.9) H 12/19/16 04:40 B-Natriuretic Peptide 385.0 pg/mL (5.0-100.0) H 12/17/16 06:36 Total Protein 6.0 gm/dL (6.0-8.3) 12/22/16 06:12 Albumin 2.4 gm/dL (3.7-5.3) L 12/22/16 06:12 Globulin 3.6 gm/dL 12/22/16 06:12 Albumin/Globulin Ratio 0.7 (1.0-1.8) L 12/22/16 06:12 TSH 1.38 uIU/ml (0.34-5.60) 12/17/16 06:36 Urine Source [place] 12/16/16 18:40 Urine Color YELLOW 12/16/16 18:40 Urine Clarity HAZY (CLEAR) 12/16/16 18:40 Urine pH >=9.0 12/16/16 18:40 Ur Specific Dell 1.010 (1.005-1.030) 12/16/16 18:40 Urine Protein >300 mg/dL (NEGATIVE) H 12/16/16 18:40 Urine Glucose (UA) 250 mg/dL (NEGATIVE) H 12/16/16 18:40 Urine Ketones NEGATIVE mg/dL (NEGATIVE) 12/16/16 18:40 Urine Blood NEGATIVE (NEGATIVE) 12/16/16 18:40 Urine Nitrate POSITIVE (NEGATIVE) H 12/16/16 18:40 Urine Bilirubin NEGATIVE (NEGATIVE) 12/16/16 18:40 Urine Urobilinogen 0.2 E.U./dL (0.2 - 1.0) 12/16/16 18:40 Ur Leukocyte Esterase SMALL (NEGATIVE) H 12/16/16 18:40 Urine RBC 0-2 /hpf (0-5) 12/16/16 18:40 Urine WBC 50-100 /hpf (0-5) H 12/16/16 18:40 Ur Epithelial Cells FEW /lpf (FEW) 12/16/16 18:40 Triple Phos Crystals FEW /hpf (FEW) 12/16/16 18:40 Urine Bacteria MANY /hpf (NONE SEEN) 12/16/16 18:40 Vancomycin Trough 27.2 ug/mL (10-20) H 12/21/16 08:30 Random Vancomycin 20.5 ug/mL (5.0-40.0) 12/22/16 06:12 Blood Type A POSITIVE 12/17/16 09:45 Antibody Screen NEGATIVE 12/17/16 09:45 Crossmatch See Detail 12/17/16 09:45 - Physical Exam Vitals and I&O: Vital Signs Temp 98.6 F 12/22/16 20:00 Pulse 88 12/22/16 20:00 Resp 19 12/22/16 20:00 BP 90/50 12/22/16 20:00 Pulse Ox 100 12/22/16 20:00 Intake & Output 12/22/16 12/22/16 12/23/16 06:59 18:59 06:59 Intake Total 900 200 993.333 Output Total 900 1215 Balance 0 -1015 993.333 Weight (lbs) 63.276 kg 63.049 kg Intake: Intake, IV Amount 100 200 993.333 D5-0.45NS 1,000 ml @ 100 993.333 mls/hr IV .Q10H DC Rx#: [id number] DAPTOmycin 360 mg In 100 Sodium Chloride 0.9% 100 ml @ 100 mls/hr IV Q24H DC Rx#:[id number] Meropenem 1 gm In Sodium 100 100 Chloride 0.9% 100 ml @ 100 mls/hr IV Q12HR DC Rx#:[id number] Tube Feeding 800 Output: Gastric Drainage 15 Urine 800 1200 Other 100 Other: Stool Characteristics Liquid Liquid Brown Brown Active Medications: Current Medications Acetaminophen (Tylenol 650mg/20.3ml Suspension) 650 mg GT Q6HR PRN PRN Reason: Pain or Fever >101 Stop: 02/14/17 21:15 Last Admin: 12/20/16 03:55 Dose: 650 mg Acetaminophen/Hydrocodone Bitart ([place] 5mg/325mg) 1 tab GT Q4H PRN PRN Reason: Pain (Severe) Stop: 02/14/17 21:15 Last Admin: 12/22/16 06:32 Dose: 1 tab Albuterol Sulfate (Albuterol 2.5mg/3ml Neb Ud) 2.5 mg HHN Q2HRT PRN PRN Reason: Shortness of Breath or Wheeze Stop: 02/14/17 21:19 Albuterol/Ipratropium (Duoneb Neb) 3 ml HHN Q6HRT [facility] Stop: 02/15/17 00:59 Last Admin: 12/22/16 19:21 Dose: 3 ml Ascorbic Acid (Vitamin C) 500 mg GT DAILY [facility] Stop: 02/15/17 08:59 Last Admin: 12/22/16 09:16 Dose: 500 mg Bisacodyl (Dulcolax 10 Mg Supp) 10 mg RC DAILY PRN PRN Reason: IF MOM INEFFECTIVE Stop: 02/14/17 21:15 Clonidine HCl (Catapres) 0.1 mg PO Q6H PRN PRN Reason: SBP GREATER THAN 160 Stop: 02/14/17 21:19 Diphenoxylate HCl/Atropine (Lomotil) 2 tab PO TID PRN PRN Reason: Diarrhea Stop: 02/19/17 12:01 Guaifenesin (Robitussin) 200 mg PO Q4HR PRN PRN Reason: Cough or Congestion Stop: 02/14/17 21:19 Meropenem 1 gm/ Sodium (Chloride) 100 mls @ 100 mls/hr IV Q12HR [facility] Stop: 02/16/17 12:59 Last Admin: 12/22/16 21:43 Dose: 100 mls/hr Daptomycin 360 mg/ Sodium (Chloride) 100 mls @ 100 mls/hr IV Q24H DC Stop: 02/19/17 11:14 Last Infusion: 12/22/16 12:45 Dose: Infused Dextrose/Sodium Chloride (D5-0.45ns) 1,000 mls @ 100 mls/hr IV .Q10H DC Stop: 02/20/17 09:54 Last Admin: 12/22/16 21:41 Dose: 100 mls/hr Insulin Aspart (Novolog Insulin Sliding Scale) 0 units SUBQ ACHS DC PRN Reason: Protocol Stop: 02/15/17 20:59 Last Admin: 12/22/16 17:21 Dose: Not Given Insulin Human NPH (Novolin N) 20 units SUBQ BIDAC DC PRN Reason: Protocol Stop: 02/16/17 07:29 Last Admin: 12/22/16 17:19 Dose: Not Given Ipratropium [place] (Atrovent Neb 0.5mg/2.5ml) 0.5 mg IH Q2HRT PRN PRN Reason: Shortness of Breath or Wheeze Stop: 02/14/17 21:19 Lactobacillus Rhamnosus (Culturelle) 1 each GT Q12H DC Stop: 02/14/17 21:29 Last Admin: 12/22/16 09:16 Dose: 1 each Loperamide HCl (Imodium 1mg/5ml Suspension) 2 mg GT Q4H PRN PRN Reason: Diarrhea Stop: 02/14/17 21:15 Lorazepam (Ativan) 0.5 mg GT Q6H PRN; Protocol PRN Reason: Anxiety Stop: 02/14/17 21:15 Last Admin: 12/18/16 23:53 Dose: 0.5 mg Midodrine (Proamatine) 10 mg PO TID DC Stop: 02/17/17 20:59 Last Admin: 12/22/16 13:55 Dose: 10 mg Miscellaneous (Probiotic Screen) 1 ea MC PRN PRN PRN Reason: PROTOCOL Stop: 02/15/17 15:43 Morphine Sulfate (Morphine) 2 mg IVP Q4H PRN PRN Reason: Severe Pain Stop: 02/16/17 10:57 Last Admin: 12/21/16 18:36 Dose: 2 mg Ondansetron HCl (Zofran) 4 mg IV Q8H PRN PRN Reason: Nausea / Vomiting Stop: 02/14/17 21:19 Last Admin: 12/17/16 12:53 Dose: 4 mg Pantoprazole Sodium (Protonix) 40 mg GT Q24H [facility] Stop: 02/14/17 21:29 Last Admin: 12/21/16 22:28 Dose: 40 mg Potassium Chloride (Potassium Chloride Elixir) 40 meq GT BID [facility] Stop: 12/23/16 09:59 Last Admin: 12/22/16 16:48 Dose: Not Given General: no acute distress, cachectic HEENT: atraumatic, normocephalic Neck: supple, no thyromegaly Cardiovascular: S1S2, regular Lungs: clear to auscultation bilaterally, clear to percussion Abdomen: soft, no tender, no distended Extremities: no cyanosis, no clubbing, no edema Neurological: awake, alert, other (confused.) Skin: other (stage 4 decubitus ulcer ( sacral).) - Procedures Procedures: Procedures Procedure Code Date ASSISTANCE WITH RESPIRATORY VENTILATION, 24-96 HRS, CPAP [id number] 09/12/16 BLOOD TRANSFUSION SERVICE 01866 12/16/16 EXCISION OF BACK SUBCU/FASCIA, OPEN APPROACH [id number] 12/16/16 [place] [id number] 04/15/16 IMMUNIZATION ADMIN [id number] 04/15/16 INSERT PICC CATH [id number] 04/15/16 INSERTION OF INFUSION DEVICE INTO R [facility], [facility] APPROACH [id number] 04/15/16 INTRODUCTION OF SERUM/TOX/VACCINE INTO MUSCLE, [facility] APPROACH [id number] 04/15/16 POS AIRWAY PRESSURE CPAP [id number] 09/12/16 REMOVAL OF PRESSURE SORE [id number] 12/16/16 TRANSFUSE NONAUT RED BLOOD CELLS IN PERIPH VEIN, [facility] [id number] 12/16/16 Infectious Disease Assmt/Plan - Problem List Patient Problems: All Active Problems MRSA (methicillin resistant Staphylococcus aureus) septicemia (Acute) A41.02 MRSA septicemia (Acute) proteus sepsis (Acute) proteus sepsis (Acute) proteus urinary tract infection (Acute) proteus urinary tract infection (Acute) FEVER WITH ELEVATED WBC, BUN (Acute) Hyperosmolality and hypernatremia (Acute) E87.0 Weakness (Acute) azotemia better (Acute) - Assessment Assessment: 1. Staphylococcus aureus, MRSA sepsis most likey source is sacral wound, clinically osteomyelitis with very elevated ESR and CRP. 2. GNR sepsis. likely source is sacral wound and UTI. 3. UTI , pyelonephritis. 4. Sepsis shock improving. 5. 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 6. DM2 7. UTI: Proteus. 8. 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 9. Diarrhea, C diff ruled out. 10. Hypokalemia. 11. metabolic acidosis. 12. Dementia. Recommendations: Will continue meropenem. Will change vanco to daptomycin as mrsa has high RAMIRO against vanco RAMIRO. When bacteremia clears, will change daptomycin to vanco IV. repeat blood c/s DW pharmacist. start lomotol. Nutritional Asmnt/Malnutr-PDOC - Dietary Evaluation Malnutrition Findings (Please click <Entered> for more info): Nutritional Asmnt/Malnutrition Start: 12/18/16 14: 50 Text: Status: Complete Freq: Document 12/18/16 14:51 GSUN (Rec: 12/18/16 15:26 GSUN [email or web address]) Nutritional Asmnt/Malnutrition Patient General Information Nutritional Screening Consult Diagnosis Sepsis, sepsis shock, sacral wound stage 4, DM2, diarrhea, CKD vs PER CKD Pertinent Medical Hx/Surgical Hx HTN, bronchitis, penumonia, dementia, constipation, GERD, gastritis, anxiety, psychosis, muscle atrophy, weakness, stiffness, acute renal failure , UTI, osteoporosis Subjective Information 66 year old female from SNF. RD consult for wound. Pt noted with consistent diarrhea. Spoke to Dr. Gonzalez on the phone this AM. Current diet order per Nutren 1.0 at 40ml/hr vs Glucerna at 40ml/hr . RD called Dr. Gonzalez back for clarification at around 11 :30am, waiting for callback. RD endorsed to RN Nabila regarding enteral feeding recommendations. Plan for aggressiveh dyration noted in MD notes, also noted just cover glucose with higher dose of insulin. Observed Diabetisource running at 50ml/ hr during visit. No severe muscle/fat wasting noted. CBW 133.3lb with equipment removed . Current Diet Order/ Nutrition Support Glucerna 40ml/hr vs Nutren 1.0 40ml/hr Pertinent Medications Vitamin C, D5W, Novolog, Novolin, Culturelle, Flagyl, Vancomycin, Morphine, Zofran, Protonix Pertinent Labs 12/16: A1c 7.1H 12/18: sodium 164H, BUN 121H, creatinine 2.4H, glucose 326H Nutritional Hx/Data Height 1.63 m Height (Calculated Centimeters) 162.6 Current Weight (lbs) 60.464 kg Weight (Calculated Kilograms) 60.5 Weight (Calculated Grams) 86920.9 Kamas Body Weight 120 Weight Status Approriate GI Symptoms GI Symptoms Diarrhea Difficult in: Chewing Swallowing Usual diet at home [place] Care: Jevity 1.2 at 70ml/hr x 20hrs, prostat Skin Integrity/Comment: Ruslan 11. note: sacral wound stage 4 Estimated Nutritional Goals Calories/Kcals/Kg IBW 120lb/54.5kg due to questionable weights obtained Kcals Calculated 1635-1980kcal (30-35kcal/kg, sepsis, skin integrity, bedridden) Protein Calculated 76-98g (1.4-1.8g/kg, renal vs sacral wound stage 4) Fluid: ml Per MD (plan for aggressive hydration) Nutritional Problem 3. Problem Problem Increased kcal andp rot needs realted to Etiology hypermetabolic state, skin integrity aeb Signs/Symptoms: sepsis, sacral wound stage 4 2. Problem Problem Altered nutrition related laboratory values related to Etiology DM aeb Signs/Symptoms: A1c 7.1, glucose >180 1. Problem Problem Altered GI function related to Etiology unknown etiology aeb Signs/Symptoms: consistent diarrhea Intervention/Recommendation Comments 1. Current diet order reads: Nutren 1.0 at 40ml/hr with comment Glucerna ( Diabetisource) at 40ml/hr, providing to meet 59% and 70%, respectively, of lower end of kcal needs. RD called Dr. Gonzalez 11:30am to clarify order, waiting for call back. Current MDs' nutrition related plan of care: aggressive hydration, resolve diarrhea. 2. Recommend Diabetisource at 60ml/hr, providing 1440ml total volume, 1728kcal to meet 100% of lower end of kcal needs, and 86g protein. OR if kept with Nutren 1.0, recommend 1 packet Prosource via tube, 1 packet Arginaid via tube, rate at 70ml/hr, prvoiding 1680ml total volume, 1680kcal, 67g protein from tube feeding. Expected Outcomes/Goals Expected Outcomes/Goals 1. Diarrhea to resolve. 2. Pt to meet 100% of estimated nutritional needs on tube feeding with tolerance.
[2016-12-23] MEDS: Albuterol/Ipratropium Neb 3 ML AERS HHN SCH ×4 (01:02→20:46)
[2016-12-23 05:48] LABS: MEAN CORPUSCULAR HEMOGLOBIN 29.3 pg (27.0-31.0); MEAN PLATELET VOLUME 10.7 fl
[2016-12-23 06:08] LABS: MEAN CELL VOLUME 88.5 fl (81-100); MEAN CORPUSCULAR HGB CONC 33.1 pg (28.0-36.0); PLATELET COUNT 244 Th/cmm (150-400); RED CELL DISTRIBUTION WIDTH 16.4 % (11.5-20.0)
[2016-12-23 06:09] LABS: ALB/GLOB RATIO 0.7 (1.0-1.8); ALKALINE PHOSPHATASE 69 U/L (34-104); ANION GAP 7.9 (7.0-16.0); BILIRUBIN,TOTAL 0.2 mg/dL (0.3-1.0); BUN - UREA NITROGEN 34 mg/dL (7-25); BUN/CREATININE RATIO 48.6; CALCIUM SERUM 8.1 mg/dL (8.6-10.3); CARBON DIOXIDE 21.5 mEq/L (21.0-31.0); CHLORIDE 118 mEq/L (98-107); CREATININE - SERUM 0.7 mg/dL (0.6-1.2); GLUCOSE 132 mg/dL (70-105); POTASSIUM SERUM 4.4 mEq/L (3.5-5.1); SGOT 15 U/L (13-39); SGPT/ALT 16 U/L (7-52); SODIUM SERUM 143 mEq/L (136-145)
[2016-12-23 06:21] LABS: HEMATOCRIT 23.9 % (35.0-45.0); HEMOGLOBIN 7.9 gm/dL (11.7-16.1); WHITE BLOOD COUNT 15.5 Th/cmm (4.8-10.8)
[2016-12-23] MEDS: INSULIN ASPART SLIDING SCALE 100 UNITS/ML UNIT SUBQ SCH ×4 (06:58→21:30)
[2016-12-23] MEDS: INSULIN HUMAN ISOPHANE (NPH) 100 UNITS/ML SUBQ SCH ×2 (06:59→17:14)
[2016-12-23 07:09] LABS: BAND NEUTROPHILE 1 % (0-10); EOSINOPHIL 5 % (0-5); NEUTROPHILS 76 % (40-80); PLATELET ESTIMATE ADEQUATE (NORMAL); TOTAL CELLS COUNTED 100
--- NOTE | 2016-12-23 09:04 | Internal Medicine Prog Note ---
Internal Medicine Subjective - Subjective Service Date: 12/23/16 Patient seen and examined:: with staff Patient is:: awake, non-verbal, non-interactive, arousable, in bed, denies any new complaints Patient Complaints of:: congestion, cough, bloated, SOB Per staff patient has:: no adverse event, no episodes of fall, tolerating meds Internal Medicine Objective - Results Result Diagrams: 12/23/16 05:26 12/23/16 05:26 Recent Labs: Laboratory Last Values WBC 15.5 Th/cmm (4.8-10.8) H 12/23/16 05:26 RBC 2.70 Mil/cmm (3.80-5.20) L 12/23/16 05:26 Hgb 7.9 gm/dL (11.7-16.1) L* 12/23/16 05:26 Hct 23.9 % (35.0-45.0) L* 12/23/16 05:26 MCV 88.5 fl (81-100) 12/23/16 05:26 MCH 29.3 pg (27.0-31.0) 12/23/16 05:26 MCHC Differential 33.1 pg (28.0-36.0) 12/23/16 05:26 RDW 16.4 % (11.5-20.0) 12/23/16 05:26 Plt Count 244 Th/cmm (150-400) 12/23/16 05:26 MPV 10.7 fl 12/23/16 05:26 Neutrophils % 76.3 % (40.0-80.0) 12/21/16 06:41 Band Neutrophils % 1 % (0-10) 12/23/16 05:26 Lymphocytes % 15.9 % (20.0-50.0) L 12/21/16 06:41 Monocytes % 3.8 % (2.0-10.0) 12/21/16 06:41 Eosinophils % 3.7 % (0.0-5.0) 12/21/16 06:41 Basophils % 0.3 % (0.0-2.0) 12/21/16 06:41 Neutrophils (Manual) 76 % (40-80) 12/23/16 05:26 Lymphocytes 18 % (20-50) L 12/23/16 05:26 Monocytes 4 % (2-10) 12/22/16 06:12 Eosinophils 5 % (0-5) 12/23/16 05:26 Platelet Estimate ADEQUATE (NORMAL) 12/23/16 05:26 Platelet Morphology NORMAL (NORMAL) 12/18/16 04:46 Polychromasia 1+ 12/17/16 06:36 Anisocytosis 1+ 12/18/16 04:46 RBC Morph Micro Appear ABNORMAL (NORMAL) 12/18/16 04:46 ESR > 140 mm/hr (0-30) H 12/19/16 04:40 PT 10.2 SECONDS (9.5-11.5) 12/21/16 08:30 INR 0.98 (0.5-1.4) 12/21/16 08:30 PTT (Actin FS) 24.7 SECONDS (26.0-38.0) L 12/21/16 08:30 Sodium 143 mEq/L (136-145) 12/23/16 05:26 Potassium 4.4 mEq/L (3.5-5.1) 12/23/16 05:26 Chloride 118 mEq/L (98-107) H 12/23/16 05:26 Carbon Dioxide 21.5 mEq/L (21.0-31.0) 12/23/16 05:26 Anion Gap 7.9 (7.0-16.0) 12/23/16 05:26 BUN 34 mg/dL (7-25) H 12/23/16 05:26 Creatinine 0.7 mg/dL (0.6-1.2) 12/23/16 05:26 Est GFR ( Amer) > 60.0 ml/min (>90) 12/23/16 05:26 Est GFR (Non-Af Amer) > 60.0 ml/min 12/23/16 05:26 BUN/Creatinine Ratio 48.6 12/23/16 05:26 Glucose 132 mg/dL (70-105) H 12/23/16 05:26 POC Glucose 123 MG/DL (70 - 105) H 12/23/16 06:56 Hemoglobin A1c % 7.1 % (4.0-6.0) H 12/16/16 18:45 Whole Bld Lactic Acid 1.42 mmol/L (0.60-1.99) 12/20/16 04:40 Calcium 8.1 mg/dL (8.6-10.3) L 12/23/16 05:26 Magnesium 2.0 mg/dL (1.9-2.7) 12/20/16 04:40 Iron 38 ug/dL (27-139) 12/18/16 04:46 TIBC 168 ug/dL (250-450) L 12/18/16 04:46 Iron Saturation 23 % (15-55) 12/18/16 04:46 Unsaturated IBC 130 ug/dL (118-369) 12/18/16 04:46 Total Bilirubin 0.2 mg/dL (0.3-1.0) L 12/23/16 05:26 AST 15 U/L (13-39) 12/23/16 05:26 ALT 16 U/L (7-52) 12/23/16 05:26 Alkaline Phosphatase 69 U/L (34-104) 12/23/16 05:26 Ammonia 36 umol/L (16-53) 12/19/16 19:22 C-Reactive Protein 19.8 mg/dL (0.0-0.9) H 12/19/16 04:40 B-Natriuretic Peptide 385.0 pg/mL (5.0-100.0) H 12/17/16 06:36 Total Protein 5.6 gm/dL (6.0-8.3) L 12/23/16 05:26 Albumin 2.3 gm/dL (3.7-5.3) L 12/23/16 05:26 Globulin 3.3 gm/dL 12/23/16 05:26 Albumin/Globulin Ratio 0.7 (1.0-1.8) L 12/23/16 05:26 TSH 1.38 uIU/ml (0.34-5.60) 12/17/16 06:36 Urine Source [place] 12/16/16 18:40 Urine Color YELLOW 12/16/16 18:40 Urine Clarity HAZY (CLEAR) 12/16/16 18:40 Urine pH >=9.0 12/16/16 18:40 Ur Specific [place] 1.010 (1.005-1.030) 12/16/16 18:40 Urine Protein >300 mg/dL (NEGATIVE) H 12/16/16 18:40 Urine Glucose (UA) 250 mg/dL (NEGATIVE) H 12/16/16 18:40 Urine Ketones NEGATIVE mg/dL (NEGATIVE) 12/16/16 18:40 Urine Blood NEGATIVE (NEGATIVE) 12/16/16 18:40 Urine Nitrate POSITIVE (NEGATIVE) H 12/16/16 18:40 Urine Bilirubin NEGATIVE (NEGATIVE) 12/16/16 18:40 Urine Urobilinogen 0.2 E.U./dL (0.2 - 1.0) 12/16/16 18:40 Ur Leukocyte Esterase SMALL (NEGATIVE) H 12/16/16 18:40 Urine RBC 0-2 /hpf (0-5) 12/16/16 18:40 Urine WBC 50-100 /hpf (0-5) H 12/16/16 18:40 Ur Epithelial Cells FEW /lpf (FEW) 12/16/16 18:40 Triple Phos Crystals FEW /hpf (FEW) 12/16/16 18:40 Urine Bacteria MANY /hpf (NONE SEEN) 12/16/16 18:40 Vancomycin Trough 27.2 ug/mL (10-20) H 12/21/16 08:30 Random Vancomycin 20.5 ug/mL (5.0-40.0) 12/22/16 06:12 Blood Type A POSITIVE 12/17/16 09:45 Antibody Screen NEGATIVE 12/17/16 09:45 Crossmatch See Detail 12/17/16 09:45 - Physical Exam Vitals and I&O: Vital Signs Temp 98.4 F 12/23/16 08:00 Pulse 101 12/23/16 08:00 Resp 19 12/23/16 08:00 BP 103/61 12/23/16 08:00 Pulse Ox 100 12/23/16 08:00 Intake & Output 12/22/16 12/23/16 12/23/16 18:59 06:59 18:59 Intake Total 200 993.333 Output Total 1215 480 Balance -1015 993.333 -480 Weight (lbs) 139 lb 144 lb 1.6 oz 144 lb Intake: Intake, IV Amount 200 993.333 D5-0.45NS 1,000 ml @ 100 993.333 mls/hr IV .Q10H DC Rx#: [id number] DAPTOmycin 360 mg In 100 Sodium Chloride 0.9% 100 ml @ 100 mls/hr IV Q24H DC Rx#:[id number] Meropenem 1 gm In Sodium 100 Chloride 0.9% 100 ml @ 100 mls/hr IV Q12HR [facility] Rx#:[id number] Output: Gastric Drainage 15 Urine 1200 480 Other: Stool Characteristics Liquid Soft Brown Brown Active Medications: Current Medications Acetaminophen (Tylenol 650mg/20.3ml Suspension) 650 mg GT Q6HR PRN PRN Reason: Pain or Fever >101 Stop: 02/14/17 21:15 Last Admin: 12/20/16 03:55 Dose: 650 mg Acetaminophen/Hydrocodone Bitart ([place] 5mg/325mg) 1 tab GT Q4H PRN PRN Reason: Pain (Severe) Stop: 02/14/17 21:15 Last Admin: 12/22/16 06:32 Dose: 1 tab Albuterol Sulfate (Albuterol 2.5mg/3ml Neb Ud) 2.5 mg HHN Q2HRT PRN PRN Reason: Shortness of Breath or Wheeze Stop: 02/14/17 21:19 Albuterol/Ipratropium (Duoneb Neb) 3 ml HHN Q6HRT [facility] Stop: 02/15/17 00:59 Last Admin: 12/23/16 07:39 Dose: 3 ml Ascorbic Acid (Vitamin C) 500 mg GT DAILY [facility] Stop: 02/15/17 08:59 Last Admin: 12/22/16 09:16 Dose: 500 mg Bisacodyl (Dulcolax 10 Mg Supp) 10 mg RC DAILY PRN PRN Reason: IF MOM INEFFECTIVE Stop: 02/14/17 21:15 Clonidine HCl (Catapres) 0.1 mg PO Q6H PRN PRN Reason: SBP GREATER THAN 160 Stop: 02/14/17 21:19 Diphenoxylate HCl/Atropine (Lomotil) 2 tab PO TID PRN PRN Reason: Diarrhea Stop: 02/19/17 12:01 Guaifenesin (Robitussin) 200 mg PO Q4HR PRN PRN Reason: Cough or Congestion Stop: 02/14/17 21:19 Meropenem 1 gm/ Sodium (Chloride) 100 mls @ 100 mls/hr IV Q12HR [facility] Stop: 02/16/17 12:59 Last Admin: 12/22/16 21:43 Dose: 100 mls/hr Daptomycin 360 mg/ Sodium (Chloride) 100 mls @ 100 mls/hr IV Q24H DC Stop: 02/19/17 11:14 Last Infusion: 12/22/16 12:45 Dose: Infused Dextrose/Sodium Chloride (D5-0.45ns) 1,000 mls @ 100 mls/hr IV .Q10H [facility] Stop: 02/20/17 09:54 Last Admin: 12/22/16 21:41 Dose: 100 mls/hr Insulin Aspart (Novolog Insulin Sliding Scale) 0 units SUBQ ACHS DC PRN Reason: Protocol Stop: 02/15/17 20:59 Last Admin: 12/23/16 06:58 Dose: Not Given Insulin Human NPH (Novolin N) 20 units SUBQ BIDAC DC PRN Reason: Protocol Stop: 02/16/17 07:29 Last Admin: 12/23/16 06:59 Dose: Not Given Ipratropium [place] (Atrovent Neb 0.5mg/2.5ml) 0.5 mg IH Q2HRT PRN PRN Reason: Shortness of Breath or Wheeze Stop: 02/14/17 21:19 Lactobacillus Rhamnosus (Culturelle) 1 each GT Q12H DC Stop: 02/14/17 21:29 Last Admin: 12/22/16 21:46 Dose: 1 each Loperamide HCl (Imodium 1mg/5ml Suspension) 2 mg GT Q4H PRN PRN Reason: Diarrhea Stop: 02/14/17 21:15 Lorazepam (Ativan) 0.5 mg GT Q6H PRN; Protocol PRN Reason: Anxiety Stop: 02/14/17 21:15 Last Admin: 12/18/16 23:53 Dose: 0.5 mg Midodrine (Proamatine) 10 mg PO TID DC Stop: 02/17/17 20:59 Last Admin: 12/22/16 21:47 Dose: 10 mg Miscellaneous (Probiotic Screen) 1 ea MC PRN PRN PRN Reason: PROTOCOL Stop: 02/15/17 15:43 Morphine Sulfate (Morphine) 2 mg IVP Q4H PRN PRN Reason: Severe Pain Stop: 02/16/17 10:57 Last Admin: 12/21/16 18:36 Dose: 2 mg Ondansetron HCl (Zofran) 4 mg IV Q8H PRN PRN Reason: Nausea / Vomiting Stop: 02/14/17 21:19 Last Admin: 12/17/16 12:53 Dose: 4 mg Pantoprazole Sodium (Protonix) 40 mg GT Q24H [facility] Stop: 02/14/17 21:29 Last Admin: 12/22/16 21:46 Dose: 40 mg Potassium Chloride (Potassium Chloride Elixir) 40 meq GT BID [facility] Stop: 12/23/16 09:59 Last Admin: 12/22/16 16:48 Dose: Not Given General: lethargic, demented, disheveled, bilateral temporal wasting, cachectic , appears older HEENT: NC/AT Neck: Supple, No LAD Lungs: congested, rales, ronchi Cardiovascular: RRR, Normal S1, Normal S2, without murmur Abdomen: soft, non-tender, globular, +GT, positive bowel sound Extremities: excoriation, contracture, ulcers stage 4 Neurological: no change, lethargic, disorganized, unable to follow command, bedbound, spastic - Procedures Procedures: Procedures Procedure Code Date ASSISTANCE WITH RESPIRATORY VENTILATION, 24-96 HRS, CPAP [id number] 09/12/16 BLOOD TRANSFUSION SERVICE 00663 12/16/16 EXCISION OF BACK SUBCU/FASCIA, OPEN APPROACH [id number] 12/16/16 [place] [id number] 04/15/16 IMMUNIZATION ADMIN 27947 04/15/16 INSERT PICC CATH 53221 04/15/16 INSERTION OF INFUSION DEVICE INTO R ATRIUM, PERC APPROACH [id number] 04/15/16 INTRODUCTION OF SERUM/TOX/VACCINE INTO MUSCLE, PERC APPROACH [id number] 04/15/16 POS AIRWAY PRESSURE CPAP [id number] 09/12/16 REMOVAL OF PRESSURE SORE 61417 12/16/16 TRANSFUSE NONAUT RED BLOOD CELLS IN PERIPH VEIN, PERC [id number] 12/16/16 Internal Medicine Assmt/Plan - Assessment Assessment: hypokalemia severe anemia acute renal failure severe sepsis pnm fever sad decub ulcer sp peg fuctional quad bedridden anemia Urine cx + Proteus Mirabilis MRSA blood leukocytosis lactic acidosis dmooc - Plan Plan: supplemental oxygen bronchodilators as needed ivf continue empiric iv abx montor glucose f/u labs in am wound care Nutritional Asmnt/Malnutr-PDOC - Dietary Evaluation Malnutrition Findings (Please click <Entered> for more info): Nutritional Asmnt/Malnutrition Start: 12/18/16 14: 50 Text: Status: Complete Freq: Document 12/18/16 14:51 GSUN (Rec: 12/18/16 15:26 GSUN [email or web address]) Nutritional Asmnt/Malnutrition Patient General Information Nutritional Screening Consult Diagnosis Sepsis, sepsis shock, sacral wound stage 4, DM2, diarrhea, CKD vs PER CKD Pertinent Medical Hx/Surgical Hx HTN, bronchitis, penumonia, dementia, constipation, GERD, gastritis, anxiety, psychosis, muscle atrophy, weakness, stiffness, acute renal failure , UTI, osteoporosis Subjective Information 66 year old female from SNF. RD consult for wound. Pt noted with consistent diarrhea. Spoke to Dr. Gonzalez on the phone this AM. Current diet order per Nutren 1.0 at 40ml/hr vs Glucerna at 40ml/hr . RD called Dr. Gonzalez back for clarification at around 11 :30am, waiting for callback. RD endorsed to RN Nabila regarding enteral feeding recommendations. Plan for aggressiveh dyration noted in MD notes, also noted just cover glucose with higher dose of insulin. Observed Diabetisource running at 50ml/ hr during visit. No severe muscle/fat wasting noted. CBW 133.3lb with equipment removed . Current Diet Order/ Nutrition Support Glucerna 40ml/hr vs Nutren 1.0 40ml/hr Pertinent Medications Vitamin C, D5W, Novolog, Novolin, Culturelle, Flagyl, Vancomycin, Morphine, Zofran, Protonix Pertinent Labs 12/16: A1c 7.1H 12/18: sodium 164H, BUN 121H, creatinine 2.4H, glucose 326H Nutritional Hx/Data Height 5 ft 4 in Height (Calculated Centimeters) 162.6 Current Weight (lbs) 133 lb 4.8 oz Weight (Calculated Kilograms) 60.5 Weight (Calculated Grams) 29349.9 [place] Body Weight 120 Weight Status Approriate GI Symptoms GI Symptoms Diarrhea Difficult in: Chewing Swallowing Usual diet at home [place] Care: Jevity 1.2 at 70ml/hr x 20hrs, prostat Skin Integrity/Comment: Ruslan [place]. note: sacral wound stage 4 Estimated Nutritional Goals Calories/Kcals/Kg IBW 120lb/54.5kg due to questionable weights obtained Kcals Calculated 1635-1980kcal (30-35kcal/kg, sepsis, skin integrity, bedridden) Protein Calculated 76-98g (1.4-1.8g/kg, renal vs sacral wound stage 4) Fluid: ml Per MD (plan for aggressive hydration) Nutritional Problem 3. Problem Problem Increased kcal andp rot needs realted to Etiology hypermetabolic state, skin integrity aeb Signs/Symptoms: sepsis, sacral wound stage 4 2. Problem Problem Altered nutrition related laboratory values related to Etiology DM aeb Signs/Symptoms: A1c 7.1, glucose >180 1. Problem Problem Altered GI function related to Etiology unknown etiology aeb Signs/Symptoms: consistent diarrhea Intervention/Recommendation Comments 1. Current diet order reads: Nutren 1.0 at 40ml/hr with comment Glucerna ( Diabetisource) at 40ml/hr, providing to meet 59% and 70%, respectively, of lower end of kcal needs. RD called Dr. Gonzalez 11:30am to clarify order, waiting for call back. Current MDs' nutrition related plan of care: aggressive hydration, resolve diarrhea. 2. Recommend Diabetisource at 60ml/hr, providing 1440ml total volume, 1728kcal to meet 100% of lower end of kcal needs, and 86g protein. OR if kept with Nutren 1.0, recommend 1 packet Prosource via tube, 1 packet Arginaid via tube, rate at 70ml/hr, prvoiding 1680ml total volume, 1680kcal, 67g protein from tube feeding. Expected Outcomes/Goals Expected Outcomes/Goals 1. Diarrhea to resolve. 2. Pt to meet 100% of estimated nutritional needs on tube feeding with tolerance.
[2016-12-23] MEDS: Ascorbic Acid 500 mg/5 mL UDC GT SCH (09:29)
[2016-12-23] MEDS: Potassium Chloride Elixir 20 mEq /15 mL UDC GT SCH (09:29)
[2016-12-23] MEDS: Multivitamin w/ Minerals Tab GT SCH (09:30)
[2016-12-23] MEDS: Lactobacillus Rhamnosus 10 Billion CFU Capsule GT SCH ×2 (09:30→21:27)
[2016-12-23] MEDS: Meropenem 1 GM in Sodium Chloride 0.9% 100 ML IV SCH ×2 (10:07→21:27)
[2016-12-23] MEDS: D5-0.45NS 1,000 ML IV SCH (10:12)
[2016-12-23] MEDS: Venelex 60gm Tube TP SCH (10:14)
--- NOTE | 2016-12-23 10:26 | General Progress Note ---
Subjective - Review of Systems Service Date: 12/23/16 Events since last encounter: continue local wound care for wound vac Objective - Results Result Diagrams: 12/23/16 05:26 12/23/16 05:26 Recent Labs: Laboratory Last Values WBC 15.5 Th/cmm (4.8-10.8) H 12/23/16 05:26 RBC 2.70 Mil/cmm (3.80-5.20) L 12/23/16 05:26 Hgb 7.9 gm/dL (11.7-16.1) L* 12/23/16 05:26 Hct 23.9 % (35.0-45.0) L* 12/23/16 05:26 MCV 88.5 fl (81-100) 12/23/16 05:26 MCH 29.3 pg (27.0-31.0) 12/23/16 05:26 MCHC Differential 33.1 pg (28.0-36.0) 12/23/16 05:26 RDW 16.4 % (11.5-20.0) 12/23/16 05:26 Plt Count 244 Th/cmm (150-400) 12/23/16 05:26 MPV 10.7 fl 12/23/16 05:26 Neutrophils % 76.3 % (40.0-80.0) 12/21/16 06:41 Band Neutrophils % 1 % (0-10) 12/23/16 05:26 Lymphocytes % 15.9 % (20.0-50.0) L 12/21/16 06:41 Monocytes % 3.8 % (2.0-10.0) 12/21/16 06:41 Eosinophils % 3.7 % (0.0-5.0) 12/21/16 06:41 Basophils % 0.3 % (0.0-2.0) 12/21/16 06:41 Neutrophils (Manual) 76 % (40-80) 12/23/16 05:26 Lymphocytes 18 % (20-50) L 12/23/16 05:26 Monocytes 4 % (2-10) 12/22/16 06:12 Eosinophils 5 % (0-5) 12/23/16 05:26 Platelet Estimate ADEQUATE (NORMAL) 12/23/16 05:26 Platelet Morphology NORMAL (NORMAL) 12/18/16 04:46 Polychromasia 1+ 12/17/16 06:36 Anisocytosis 1+ 12/18/16 04:46 RBC Morph Micro Appear ABNORMAL (NORMAL) 12/18/16 04:46 ESR > 140 mm/hr (0-30) H 12/19/16 04:40 PT 10.2 SECONDS (9.5-11.5) 12/21/16 08:30 INR 0.98 (0.5-1.4) 12/21/16 08:30 PTT (Actin FS) 24.7 SECONDS (26.0-38.0) L 12/21/16 08:30 Sodium 143 mEq/L (136-145) 12/23/16 05:26 Potassium 4.4 mEq/L (3.5-5.1) 12/23/16 05:26 Chloride 118 mEq/L (98-107) H 12/23/16 05:26 Carbon Dioxide 21.5 mEq/L (21.0-31.0) 12/23/16 05:26 Anion Gap 7.9 (7.0-16.0) 12/23/16 05:26 BUN 34 mg/dL (7-25) H 12/23/16 05:26 Creatinine 0.7 mg/dL (0.6-1.2) 12/23/16 05:26 Est GFR ( Amer) > 60.0 ml/min (>90) 12/23/16 05:26 Est GFR (Non-Af Amer) > 60.0 ml/min 12/23/16 05:26 BUN/Creatinine Ratio 48.6 12/23/16 05:26 Glucose 132 mg/dL (70-105) H 12/23/16 05:26 POC Glucose 123 MG/DL (70 - 105) H 12/23/16 06:56 Hemoglobin A1c % 7.1 % (4.0-6.0) H 12/16/16 18:45 Whole Bld Lactic Acid 1.42 mmol/L (0.60-1.99) 12/20/16 04:40 Calcium 8.1 mg/dL (8.6-10.3) L 12/23/16 05:26 Magnesium 2.0 mg/dL (1.9-2.7) 12/20/16 04:40 Iron 38 ug/dL (27-139) 12/18/16 04:46 TIBC 168 ug/dL (250-450) L 12/18/16 04:46 Iron Saturation 23 % (15-55) 12/18/16 04:46 Unsaturated IBC 130 ug/dL (118-369) 12/18/16 04:46 Total Bilirubin 0.2 mg/dL (0.3-1.0) L 12/23/16 05:26 AST 15 U/L (13-39) 12/23/16 05:26 ALT 16 U/L (7-52) 12/23/16 05:26 Alkaline Phosphatase 69 U/L (34-104) 12/23/16 05:26 Ammonia 36 umol/L (16-53) 12/19/16 19:22 C-Reactive Protein 19.8 mg/dL (0.0-0.9) H 12/19/16 04:40 B-Natriuretic Peptide 385.0 pg/mL (5.0-100.0) H 12/17/16 06:36 Total Protein 5.6 gm/dL (6.0-8.3) L 12/23/16 05:26 Albumin 2.3 gm/dL (3.7-5.3) L 12/23/16 05:26 Globulin 3.3 gm/dL 12/23/16 05:26 Albumin/Globulin Ratio 0.7 (1.0-1.8) L 12/23/16 05:26 TSH 1.38 uIU/ml (0.34-5.60) 12/17/16 06:36 Urine Source [place] 12/16/16 18:40 Urine Color YELLOW 12/16/16 18:40 Urine Clarity HAZY (CLEAR) 12/16/16 18:40 Urine pH >=9.0 12/16/16 18:40 Ur Specific [place] 1.010 (1.005-1.030) 12/16/16 18:40 Urine Protein >300 mg/dL (NEGATIVE) H 12/16/16 18:40 Urine Glucose (UA) 250 mg/dL (NEGATIVE) H 12/16/16 18:40 Urine Ketones NEGATIVE mg/dL (NEGATIVE) 12/16/16 18:40 Urine Blood NEGATIVE (NEGATIVE) 12/16/16 18:40 Urine Nitrate POSITIVE (NEGATIVE) H 12/16/16 18:40 Urine Bilirubin NEGATIVE (NEGATIVE) 12/16/16 18:40 Urine Urobilinogen 0.2 E.U./dL (0.2 - 1.0) 12/16/16 18:40 Ur Leukocyte Esterase SMALL (NEGATIVE) H 12/16/16 18:40 Urine RBC 0-2 /hpf (0-5) 12/16/16 18:40 Urine WBC 50-100 /hpf (0-5) H 12/16/16 18:40 Ur Epithelial Cells FEW /lpf (FEW) 12/16/16 18:40 Triple Phos Crystals FEW /hpf (FEW) 12/16/16 18:40 Urine Bacteria MANY /hpf (NONE SEEN) 12/16/16 18:40 Vancomycin Trough 27.2 ug/mL (10-20) H 12/21/16 08:30 Random Vancomycin 20.5 ug/mL (5.0-40.0) 12/22/16 06:12 Blood Type A POSITIVE 12/17/16 09:45 Antibody Screen NEGATIVE 12/17/16 09:45 Crossmatch See Detail 12/17/16 09:45 - Physical Exam Vitals and I&O: Vital Signs Temp 98.4 F 12/23/16 08:00 Pulse 101 12/23/16 08:00 Resp 19 12/23/16 08:00 BP 103/61 12/23/16 08:00 Pulse Ox 100 12/23/16 08:00 Intake & Output 12/22/16 12/23/16 12/23/16 18:59 06:59 18:59 Intake Total 200 5376.651 8473 Output Total 1215 480 Balance -1015 1093.333 520 Weight (lbs) 63.049 kg 65.363 kg 65.317 kg Intake: Intake, IV Amount 200 9486.638 2382 D5-0.45NS 1,000 ml @ 100 268.633 3706 mls/hr IV .Q10H DC Rx#: [id number] DAPTOmycin 360 mg In 100 Sodium Chloride 0.9% 100 ml @ 100 mls/hr IV Q24H DC Rx#:[id number] Meropenem 1 gm In Sodium 100 100 Chloride 0.9% 100 ml @ 100 mls/hr IV Q12HR DC Rx#:[id number] Output: Gastric Drainage 15 Urine 1200 480 Other: Stool Characteristics Liquid Soft Brown Brown Active Medications: Current Medications Acetaminophen (Tylenol 650mg/20.3ml Suspension) 650 mg GT Q6HR PRN PRN Reason: Pain or Fever >101 Stop: 02/14/17 21:15 Last Admin: 12/20/16 03:55 Dose: 650 mg Acetaminophen/Hydrocodone Bitart (Zoar 5mg/325mg) 1 tab GT Q4H PRN PRN Reason: Pain (Severe) Stop: 02/14/17 21:15 Last Admin: 12/22/16 06:32 Dose: 1 tab Albuterol Sulfate (Albuterol 2.5mg/3ml Neb Ud) 2.5 mg HHN Q2HRT PRN PRN Reason: Shortness of Breath or Wheeze Stop: 02/14/17 21:19 Albuterol/Ipratropium (Duoneb Neb) 3 ml HHN Q6HRT DC Stop: 02/15/17 00:59 Last Admin: 12/23/16 07:39 Dose: 3 ml Ascorbic Acid (Vitamin C) 500 mg GT DAILY [facility] Stop: 02/15/17 08:59 Last Admin: 12/23/16 09:29 Dose: 500 mg Bisacodyl (Dulcolax 10 Mg Supp) 10 mg RC DAILY PRN PRN Reason: IF MOM INEFFECTIVE Stop: 02/14/17 21:15 Clonidine HCl (Catapres) 0.1 mg PO Q6H PRN PRN Reason: SBP GREATER THAN 160 Stop: 02/14/17 21:19 Diphenoxylate HCl/Atropine (Lomotil) 2 tab PO TID PRN PRN Reason: Diarrhea Stop: 02/19/17 12:01 Guaifenesin (Robitussin) 200 mg PO Q4HR PRN PRN Reason: Cough or Congestion Stop: 02/14/17 21:19 Meropenem 1 gm/ Sodium (Chloride) 100 mls @ 100 mls/hr IV Q12HR [facility] Stop: 02/16/17 12:59 Last Admin: 12/23/16 10:07 Dose: 100 mls/hr Daptomycin 360 mg/ Sodium (Chloride) 100 mls @ 100 mls/hr IV Q24H DC Stop: 02/19/17 11:14 Last Infusion: 12/22/16 12:45 Dose: Infused Dextrose/Sodium Chloride (D5-0.45ns) 1,000 mls @ 100 mls/hr IV .Q10H DC Stop: 02/20/17 09:54 Last Admin: 12/23/16 10:12 Dose: 100 mls/hr Insulin Aspart (Novolog Insulin Sliding Scale) 0 units SUBQ ACHS DC PRN Reason: Protocol Stop: 02/15/17 20:59 Last Admin: 12/23/16 06:58 Dose: Not Given Insulin Human NPH (Novolin N) 20 units SUBQ BIDAC DC PRN Reason: Protocol Stop: 02/16/17 07:29 Last Admin: 12/23/16 06:59 Dose: Not Given Ipratropium [place] (Atrovent Neb 0.5mg/2.5ml) 0.5 mg IH Q2HRT PRN PRN Reason: Shortness of Breath or Wheeze Stop: 02/14/17 21:19 Lactobacillus Rhamnosus (Culturelle) 1 each GT Q12H [facility] Stop: 02/14/17 21:29 Last Admin: 12/23/16 09:30 Dose: 1 each Loperamide HCl (Imodium 1mg/5ml Suspension) 2 mg GT Q4H PRN PRN Reason: Diarrhea Stop: 02/14/17 21:15 Lorazepam (Ativan) 0.5 mg GT Q6H PRN; Protocol PRN Reason: Anxiety Stop: 02/14/17 21:15 Last Admin: 12/18/16 23:53 Dose: 0.5 mg Midodrine (Proamatine) 10 mg PO TID [facility] Stop: 02/17/17 20:59 Last Admin: 12/23/16 09:30 Dose: 10 mg Miscellaneous (Probiotic Screen) 1 ea MC PRN PRN PRN Reason: PROTOCOL Stop: 02/15/17 15:43 Morphine Sulfate (Morphine) 2 mg IVP Q4H PRN PRN Reason: Severe Pain Stop: 02/16/17 10:57 Last Admin: 12/21/16 18:36 Dose: 2 mg Ondansetron HCl (Zofran) 4 mg IV Q8H PRN PRN Reason: Nausea / Vomiting Stop: 02/14/17 21:19 Last Admin: 12/17/16 12:53 Dose: 4 mg Pantoprazole Sodium (Protonix) 40 mg GT Q24H DC Stop: 02/14/17 21:29 Last Admin: 12/22/16 21:46 Dose: 40 mg General: Alert, No acute distress HEENT: PERRLA, Mucous membr. moist/pink Neck: Supple Cardiovascular: Regular rate, Normal S1, Normal S2 Lungs: Clear to auscultation, Other (adeuqate air exchage) Abdomen: Bowel sounds (hyperactive), Soft, Distended (mildly) Extremities: no Edema (none) Neurological: Sensation intact Skin: no Rash Psych/Mental Status: Mood NL - Procedures Procedures: Procedures Procedure Code Date ASSISTANCE WITH RESPIRATORY VENTILATION, 24-96 HRS, CPAP [id number] 09/12/16 BLOOD TRANSFUSION SERVICE 02722 12/16/16 EXCISION OF BACK SUBCU/FASCIA, OPEN APPROACH [id number] 12/16/16 [place] [id number] 04/15/16 IMMUNIZATION ADMIN 93440 04/15/16 INSERT PICC CATH [id number] 04/15/16 INSERTION OF INFUSION DEVICE INTO R ATRIUM, PERC APPROACH [id number] 04/15/16 INTRODUCTION OF SERUM/TOX/VACCINE INTO MUSCLE, PERC APPROACH [id number] 04/15/16 POS AIRWAY PRESSURE CPAP 63099 09/12/16 REMOVAL OF PRESSURE SORE 69137 12/16/16 TRANSFUSE NONAUT RED BLOOD CELLS IN PERIPH VEIN, PERC 19332L4 12/16/16 Assessment/Plan - Problem List Patient Problems: All Active Problems MRSA (methicillin resistant Staphylococcus aureus) septicemia (Acute) A41.02 MRSA septicemia (Acute) proteus sepsis (Acute) proteus sepsis (Acute) proteus urinary tract infection (Acute) proteus urinary tract infection (Acute) FEVER WITH ELEVATED WBC, BUN (Acute) Hyperosmolality and hypernatremia (Acute) E87.0 Weakness (Acute) azotemia better (Acute) Nutritional Asmnt/Malnutr-PDOC - Dietary Evaluation Malnutrition Findings (Please click <Entered> for more info): Nutritional Asmnt/Malnutrition Start: 12/18/16 14: 50 Text: Status: Complete Freq: Document 12/18/16 14:51 GSUN (Rec: 12/18/16 15:26 GSUN [email or web address]) Nutritional Asmnt/Malnutrition Patient General Information Nutritional Screening Consult Diagnosis Sepsis, sepsis shock, sacral wound stage 4, DM2, diarrhea, CKD vs PER CKD Pertinent Medical Hx/Surgical Hx HTN, bronchitis, penumonia, dementia, constipation, GERD, gastritis, anxiety, psychosis, muscle atrophy, weakness, stiffness, acute renal failure , UTI, osteoporosis Subjective Information 66 year old female from SNF. RD consult for wound. Pt noted with consistent diarrhea. Spoke to Dr. Gonzalez on the phone this AM. Current diet order per MD Nutren 1.0 at 40ml/hr vs Glucerna at 40ml/hr . RD called Dr. Gonzalez back for clarification at around 11 :30am, waiting for callback. RD endorsed to RN Nabila regarding enteral feeding recommendations. Plan for aggressiveh dyration noted in MD notes, also noted just cover glucose with higher dose of insulin. Observed Diabetisource running at 50ml/ hr during visit. No severe muscle/fat wasting noted. CBW 133.3lb with equipment removed . Current Diet Order/ Nutrition Support Glucerna 40ml/hr vs Nutren 1.0 40ml/hr Pertinent Medications Vitamin C, D5W, Novolog, Novolin, Culturelle, Flagyl, Vancomycin, Morphine, Zofran, Protonix Pertinent Labs 12/16: A1c 7.1H 12/18: sodium 164H, BUN 121H, creatinine 2.4H, glucose 326H Nutritional Hx/Data Height 1.63 m Height (Calculated Centimeters) 162.6 Current Weight (lbs) 60.464 kg Weight (Calculated Kilograms) 60.5 Weight (Calculated Grams) 53177.9 [place] Body Weight 120 Weight Status Approriate GI Symptoms GI Symptoms Diarrhea Difficult in: Chewing Swallowing Usual diet at home [place] Care: Jevity 1.2 at 70ml/hr x 20hrs, prostat Skin Integrity/Comment: Ruslan Oro. note: sacral wound stage 4 Estimated Nutritional Goals Calories/Kcals/Kg IBW 120lb/54.5kg due to questionable weights obtained Kcals Calculated 1635-1980kcal (30-35kcal/kg, sepsis, skin integrity, bedridden) Protein Calculated 76-98g (1.4-1.8g/kg, renal vs sacral wound stage 4) Fluid: ml Per MD (plan for aggressive hydration) Nutritional Problem 3. Problem Problem Increased kcal andp rot needs realted to Etiology hypermetabolic state, skin integrity aeb Signs/Symptoms: sepsis, sacral wound stage 4 2. Problem Problem Altered nutrition related laboratory values related to Etiology DM aeb Signs/Symptoms: A1c 7.1, glucose >180 1. Problem Problem Altered GI function related to Etiology unknown etiology aeb Signs/Symptoms: consistent diarrhea Intervention/Recommendation Comments 1. Current diet order reads: Nutren 1.0 at 40ml/hr with comment Glucerna ( Diabetisource) at 40ml/hr, providing to meet 59% and 70%, respectively, of lower end of kcal needs. RD called Dr. Gonzalez 11:30am to clarify order, waiting for call back. Current MDs' nutrition related plan of care: aggressive hydration, resolve diarrhea. 2. Recommend Diabetisource at 60ml/hr, providing 1440ml total volume, 1728kcal to meet 100% of lower end of kcal needs, and 86g protein. OR if kept with Nutren 1.0, recommend 1 packet Prosource via tube, 1 packet Arginaid via tube, rate at 70ml/hr, prvoiding 1680ml total volume, 1680kcal, 67g protein from tube feeding. Expected Outcomes/Goals Expected Outcomes/Goals 1. Diarrhea to resolve. 2. Pt to meet 100% of estimated nutritional needs on tube feeding with tolerance.
--- NOTE | 2016-12-23 13:14 | General Progress Note ---
Subjective - Review of Systems Service Date: 12/23/16 Subjective: Sleeping, comfortable Objective - Results Result Diagrams: 12/23/16 05:26 12/23/16 05:26 Recent Labs: Laboratory Last Values WBC 15.5 Th/cmm (4.8-10.8) H 12/23/16 05:26 RBC 2.70 Mil/cmm (3.80-5.20) L 12/23/16 05:26 Hgb 7.9 gm/dL (11.7-16.1) L* 12/23/16 05:26 Hct 23.9 % (35.0-45.0) L* 12/23/16 05:26 MCV 88.5 fl (81-100) 12/23/16 05:26 MCH 29.3 pg (27.0-31.0) 12/23/16 05:26 MCHC Differential 33.1 pg (28.0-36.0) 12/23/16 05:26 RDW 16.4 % (11.5-20.0) 12/23/16 05:26 Plt Count 244 Th/cmm (150-400) 12/23/16 05:26 MPV 10.7 fl 12/23/16 05:26 Neutrophils % 76.3 % (40.0-80.0) 12/21/16 06:41 Band Neutrophils % 1 % (0-10) 12/23/16 05:26 Lymphocytes % 15.9 % (20.0-50.0) L 12/21/16 06:41 Monocytes % 3.8 % (2.0-10.0) 12/21/16 06:41 Eosinophils % 3.7 % (0.0-5.0) 12/21/16 06:41 Basophils % 0.3 % (0.0-2.0) 12/21/16 06:41 Neutrophils (Manual) 76 % (40-80) 12/23/16 05:26 Lymphocytes 18 % (20-50) L 12/23/16 05:26 Monocytes 4 % (2-10) 12/22/16 06:12 Eosinophils 5 % (0-5) 12/23/16 05:26 Platelet Estimate ADEQUATE (NORMAL) 12/23/16 05:26 Platelet Morphology NORMAL (NORMAL) 12/18/16 04:46 Polychromasia 1+ 12/17/16 06:36 Anisocytosis 1+ 12/18/16 04:46 RBC Morph Micro Appear ABNORMAL (NORMAL) 12/18/16 04:46 ESR > 140 mm/hr (0-30) H 12/19/16 04:40 PT 10.2 SECONDS (9.5-11.5) 12/21/16 08:30 INR 0.98 (0.5-1.4) 12/21/16 08:30 PTT (Actin FS) 24.7 SECONDS (26.0-38.0) L 12/21/16 08:30 Sodium 143 mEq/L (136-145) 12/23/16 05:26 Potassium 4.4 mEq/L (3.5-5.1) 12/23/16 05:26 Chloride 118 mEq/L (98-107) H 12/23/16 05:26 Carbon Dioxide 21.5 mEq/L (21.0-31.0) 12/23/16 05:26 Anion Gap 7.9 (7.0-16.0) 12/23/16 05:26 BUN 34 mg/dL (7-25) H 12/23/16 05:26 Creatinine 0.7 mg/dL (0.6-1.2) 12/23/16 05:26 Est GFR ( Amer) > 60.0 ml/min (>90) 12/23/16 05:26 Est GFR (Non-Af Amer) > 60.0 ml/min 12/23/16 05:26 BUN/Creatinine Ratio 48.6 12/23/16 05:26 Glucose 132 mg/dL (70-105) H 12/23/16 05:26 POC Glucose 148 MG/DL (70 - 105) H 12/23/16 12:10 Hemoglobin A1c % 7.1 % (4.0-6.0) H 12/16/16 18:45 Whole Bld Lactic Acid 1.42 mmol/L (0.60-1.99) 12/20/16 04:40 Calcium 8.1 mg/dL (8.6-10.3) L 12/23/16 05:26 Magnesium 2.0 mg/dL (1.9-2.7) 12/20/16 04:40 Iron 38 ug/dL (27-139) 12/18/16 04:46 TIBC 168 ug/dL (250-450) L 12/18/16 04:46 Iron Saturation 23 % (15-55) 12/18/16 04:46 Unsaturated IBC 130 ug/dL (118-369) 12/18/16 04:46 Total Bilirubin 0.2 mg/dL (0.3-1.0) L 12/23/16 05:26 AST 15 U/L (13-39) 12/23/16 05:26 ALT 16 U/L (7-52) 12/23/16 05:26 Alkaline Phosphatase 69 U/L (34-104) 12/23/16 05:26 Ammonia 36 umol/L (16-53) 12/19/16 19:22 C-Reactive Protein 19.8 mg/dL (0.0-0.9) H 12/19/16 04:40 B-Natriuretic Peptide 385.0 pg/mL (5.0-100.0) H 12/17/16 06:36 Total Protein 5.6 gm/dL (6.0-8.3) L 12/23/16 05:26 Albumin 2.3 gm/dL (3.7-5.3) L 12/23/16 05:26 Globulin 3.3 gm/dL 12/23/16 05:26 Albumin/Globulin Ratio 0.7 (1.0-1.8) L 12/23/16 05:26 TSH 1.38 uIU/ml (0.34-5.60) 12/17/16 06:36 Urine Source [place] 12/16/16 18:40 Urine Color YELLOW 12/16/16 18:40 Urine Clarity HAZY (CLEAR) 12/16/16 18:40 Urine pH >=9.0 12/16/16 18:40 Ur Specific [place] 1.010 (1.005-1.030) 12/16/16 18:40 Urine Protein >300 mg/dL (NEGATIVE) H 12/16/16 18:40 Urine Glucose (UA) 250 mg/dL (NEGATIVE) H 12/16/16 18:40 Urine Ketones NEGATIVE mg/dL (NEGATIVE) 12/16/16 18:40 Urine Blood NEGATIVE (NEGATIVE) 12/16/16 18:40 Urine Nitrate POSITIVE (NEGATIVE) H 12/16/16 18:40 Urine Bilirubin NEGATIVE (NEGATIVE) 12/16/16 18:40 Urine Urobilinogen 0.2 E.U./dL (0.2 - 1.0) 12/16/16 18:40 Ur Leukocyte Esterase SMALL (NEGATIVE) H 12/16/16 18:40 Urine RBC 0-2 /hpf (0-5) 12/16/16 18:40 Urine WBC 50-100 /hpf (0-5) H 12/16/16 18:40 Ur Epithelial Cells FEW /lpf (FEW) 12/16/16 18:40 Triple Phos Crystals FEW /hpf (FEW) 12/16/16 18:40 Urine Bacteria MANY /hpf (NONE SEEN) 12/16/16 18:40 Vancomycin Trough 27.2 ug/mL (10-20) H 12/21/16 08:30 Random Vancomycin 20.5 ug/mL (5.0-40.0) 12/22/16 06:12 Blood Type A POSITIVE 12/17/16 09:45 Antibody Screen NEGATIVE 12/17/16 09:45 Crossmatch See Detail 12/17/16 09:45 - Physical Exam Vitals and I&O: Vital Signs Temp 98.4 F 12/23/16 08:00 Pulse 101 12/23/16 08:00 Resp 19 12/23/16 08:00 BP 103/61 12/23/16 08:00 Pulse Ox 100 12/23/16 08:00 Intake & Output 12/22/16 12/23/16 12/23/16 18:59 06:59 18:59 Intake Total 200 3192.854 5429 Output Total 1215 480 Balance -1015 1093.333 620 Weight (lbs) 63.049 kg 65.363 kg 65.317 kg Intake: Intake, IV Amount 200 2745.623 6773 D5-0.45NS 1,000 ml @ 100 590.663 4831 mls/hr IV .Q10H DC Rx#: [id number] DAPTOmycin 360 mg In 100 Sodium Chloride 0.9% 100 ml @ 100 mls/hr IV Q24H DC Rx#:[id number] Meropenem 1 gm In Sodium 100 100 100 Chloride 0.9% 100 ml @ 100 mls/hr IV Q12HR DC Rx#:[id number] Output: Gastric Drainage 15 Urine 1200 480 Other: Stool Characteristics Liquid Soft Soft Brown Brown Brown Active Medications: Current Medications Acetaminophen (Tylenol 650mg/20.3ml Suspension) 650 mg GT Q6HR PRN PRN Reason: Pain or Fever >101 Stop: 02/14/17 21:15 Last Admin: 12/20/16 03:55 Dose: 650 mg Acetaminophen/Hydrocodone Bitart ([place] 5mg/325mg) 1 tab GT Q4H PRN PRN Reason: Pain (Severe) Stop: 02/14/17 21:15 Last Admin: 12/22/16 06:32 Dose: 1 tab Albuterol Sulfate (Albuterol 2.5mg/3ml Neb Ud) 2.5 mg HHN Q2HRT PRN PRN Reason: Shortness of Breath or Wheeze Stop: 02/14/17 21:19 Albuterol/Ipratropium (Duoneb Neb) 3 ml HHN Q6HRT DC Stop: 02/15/17 00:59 Last Admin: 12/23/16 07:39 Dose: 3 ml Ascorbic Acid (Vitamin C) 500 mg GT DAILY [facility] Stop: 02/15/17 08:59 Last Admin: 12/23/16 09:29 Dose: 500 mg Bisacodyl (Dulcolax 10 Mg Supp) 10 mg RC DAILY PRN PRN Reason: IF MOM INEFFECTIVE Stop: 02/14/17 21:15 Clonidine HCl (Catapres) 0.1 mg PO Q6H PRN PRN Reason: SBP GREATER THAN 160 Stop: 02/14/17 21:19 Diphenoxylate HCl/Atropine (Lomotil) 2 tab PO TID PRN PRN Reason: Diarrhea Stop: 02/19/17 12:01 Guaifenesin (Robitussin) 200 mg PO Q4HR PRN PRN Reason: Cough or Congestion Stop: 02/14/17 21:19 Meropenem 1 gm/ Sodium (Chloride) 100 mls @ 100 mls/hr IV Q12HR DC Stop: 02/16/17 12:59 Last Infusion: 12/23/16 11:38 Dose: Infused Daptomycin 360 mg/ Sodium (Chloride) 100 mls @ 100 mls/hr IV Q24H DC Stop: 02/19/17 11:14 Last Admin: 12/23/16 12:08 Dose: 100 mls/hr Dextrose/Sodium Chloride (D5-0.45ns) 1,000 mls @ 100 mls/hr IV .Q10H DC Stop: 02/20/17 09:54 Last Admin: 12/23/16 10:12 Dose: 100 mls/hr Insulin Aspart (Novolog Insulin Sliding Scale) 0 units SUBQ ACHS DC PRN Reason: Protocol Stop: 02/15/17 20:59 Last Admin: 12/23/16 06:58 Dose: Not Given Insulin Human NPH (Novolin N) 20 units SUBQ BIDAC DC PRN Reason: Protocol Stop: 02/16/17 07:29 Last Admin: 12/23/16 06:59 Dose: Not Given Ipratropium [place] (Atrovent Neb 0.5mg/2.5ml) 0.5 mg IH Q2HRT PRN PRN Reason: Shortness of Breath or Wheeze Stop: 02/14/17 21:19 Lactobacillus Rhamnosus (Culturelle) 1 each GT Q12H DC Stop: 02/14/17 21:29 Last Admin: 12/23/16 09:30 Dose: 1 each Loperamide HCl (Imodium 1mg/5ml Suspension) 2 mg GT Q4H PRN PRN Reason: Diarrhea Stop: 02/14/17 21:15 Lorazepam (Ativan) 0.5 mg GT Q6H PRN; Protocol PRN Reason: Anxiety Stop: 02/14/17 21:15 Last Admin: 12/18/16 23:53 Dose: 0.5 mg Midodrine (Proamatine) 10 mg PO TID [facility] Stop: 02/17/17 20:59 Last Admin: 12/23/16 09:30 Dose: 10 mg Miscellaneous (Probiotic Screen) 1 ea MC PRN PRN PRN Reason: PROTOCOL Stop: 02/15/17 15:43 Morphine Sulfate (Morphine) 2 mg IVP Q4H PRN PRN Reason: Severe Pain Stop: 02/16/17 10:57 Last Admin: 12/21/16 18:36 Dose: 2 mg Ondansetron HCl (Zofran) 4 mg IV Q8H PRN PRN Reason: Nausea / Vomiting Stop: 02/14/17 21:19 Last Admin: 12/17/16 12:53 Dose: 4 mg Pantoprazole Sodium (Protonix) 40 mg GT Q24H DC Stop: 02/14/17 21:29 Last Admin: 12/22/16 21:46 Dose: 40 mg Sodium Bicarbonate (Sodium Bicarbonate) 650 mg PO BID DC PRN Reason: Protocol Stop: 02/21/17 16:59 General: Alert, No acute distress HEENT: PERRLA, Mucous membr. moist/pink Neck: Supple Cardiovascular: Regular rate, Normal S1, Normal S2 Lungs: Clear to auscultation, Other (adeuqate air exchage) Abdomen: Bowel sounds (hyperactive), Soft, Distended (mildly) Extremities: no Edema (none) Neurological: Sensation intact Skin: no Rash Psych/Mental Status: Mood NL - Procedures Procedures: Procedures Procedure Code Date ASSISTANCE WITH RESPIRATORY VENTILATION, 24-96 HRS, CPAP [id number] 09/12/16 BLOOD TRANSFUSION SERVICE 99009 12/16/16 EXCISION OF BACK SUBCU/FASCIA, OPEN APPROACH [id number] 12/16/16 [place] [address] 04/15/16 IMMUNIZATION ADMIN 58093 04/15/16 INSERT PICC CATH 65833 04/15/16 INSERTION OF INFUSION DEVICE INTO R ATRIUM, PERC APPROACH [id number] 04/15/16 INTRODUCTION OF SERUM/TOX/VACCINE INTO MUSCLE, PERC APPROACH [id number] 04/15/16 POS AIRWAY PRESSURE CPAP 35641 09/12/16 REMOVAL OF PRESSURE SORE 85678 12/16/16 TRANSFUSE NONAUT RED BLOOD CELLS IN PERIPH VEIN, PERC [id number] 12/16/16 Assessment/Plan - Problem List Patient Problems: All Active Problems MRSA (methicillin resistant Staphylococcus aureus) septicemia (Acute) A41.02 MRSA septicemia (Acute) proteus sepsis (Acute) proteus sepsis (Acute) proteus urinary tract infection (Acute) proteus urinary tract infection (Acute) FEVER WITH ELEVATED WBC, BUN (Acute) Hyperosmolality and hypernatremia (Acute) E87.0 Weakness (Acute) azotemia better (Acute) - Assessment Assessment: Prerenal azotemia Hypernatremia secondary to dehydration MRSA septicemia Hyperkalemia secondary to replacement Anemia of chronic disease Non-gap metabolic acidosis Proteus mirabilis complicated UTI - Plan Plan: Lab - Result Diagrams 12/22/16 06:12 12/22/16 08:20 Current Medications Acetaminophen (Tylenol 650mg/20.3ml Suspension) 650 mg GT Q6HR PRN PRN Reason: Pain or Fever >101 Stop: 02/14/17 21:15 Last Admin: 12/20/16 03:55 Dose: 650 mg Acetaminophen/Hydrocodone Bitart ([place] 5mg/325mg) 1 tab GT Q4H PRN PRN Reason: Pain (Severe) Stop: 02/14/17 21:15 Last Admin: 12/22/16 06:32 Dose: 1 tab Albuterol Sulfate (Albuterol 2.5mg/3ml Neb Ud) 2.5 mg HHN Q2HRT PRN PRN Reason: Shortness of Breath or Wheeze Stop: 02/14/17 21:19 Albuterol/Ipratropium (Duoneb Neb) 3 ml HHN Q6HRT DC Stop: 02/15/17 00:59 Last Admin: 12/22/16 12:18 Dose: 3 ml Ascorbic Acid (Vitamin C) 500 mg GT DAILY [facility] Stop: 02/15/17 08:59 Last Admin: 12/22/16 09:16 Dose: 500 mg Bisacodyl (Dulcolax 10 Mg Supp) 10 mg RC DAILY PRN PRN Reason: IF MOM INEFFECTIVE Stop: 02/14/17 21:15 Clonidine HCl (Catapres) 0.1 mg PO Q6H PRN PRN Reason: SBP GREATER THAN 160 Stop: 02/14/17 21:19 Diphenoxylate HCl/Atropine (Lomotil) 2 tab PO TID PRN PRN Reason: Diarrhea Stop: 02/19/17 12:01 Guaifenesin (Robitussin) 200 mg PO Q4HR PRN PRN Reason: Cough or Congestion Stop: 02/14/17 21:19 Meropenem 1 gm/ Sodium (Chloride) 100 mls @ 100 mls/hr IV Q12HR [facility] Stop: 02/16/17 12:59 Last Admin: 12/22/16 09:12 Dose: 100 mls/hr Daptomycin 360 mg/ Sodium (Chloride) 100 mls @ 100 mls/hr IV Q24H [facility] Stop: 02/19/17 11:14 Last Admin: 12/22/16 11:44 Dose: 100 mls/hr Dextrose/Sodium Chloride (D5-0.45ns) 1,000 mls @ 100 mls/hr IV .Q10H [facility] Stop: 02/20/17 09:54 Last Admin: 12/22/16 11:45 Dose: 100 mls/hr Insulin Aspart (Novolog Insulin Sliding Scale) 0 units SUBQ ACHS DC PRN Reason: Protocol Stop: 02/15/17 20:59 Last Admin: 12/21/16 22:33 Dose: Not Given Insulin Human NPH (Novolin N) 20 units SUBQ BIDAC DC PRN Reason: Protocol Stop: 02/16/17 07:29 Last Admin: 12/22/16 06:32 Dose: 20 units Ipratropium [place] (Atrovent Neb 0.5mg/2.5ml) 0.5 mg IH Q2HRT PRN PRN Reason: Shortness of Breath or Wheeze Stop: 02/14/17 21:19 Lactobacillus Rhamnosus (Culturelle) 1 each GT Q12H DC Stop: 02/14/17 21:29 Last Admin: 12/22/16 09:16 Dose: 1 each Loperamide HCl (Imodium 1mg/5ml Suspension) 2 mg GT Q4H PRN PRN Reason: Diarrhea Stop: 02/14/17 21:15 Lorazepam (Ativan) 0.5 mg GT Q6H PRN; Protocol PRN Reason: Anxiety Stop: 02/14/17 21:15 Last Admin: 12/18/16 23:53 Dose: 0.5 mg Midodrine (Proamatine) 10 mg PO TID [facility] Stop: 02/17/17 20:59 Last Admin: 12/22/16 13:55 Dose: 10 mg Miscellaneous (Probiotic Screen) 1 ea MC PRN PRN PRN Reason: PROTOCOL Stop: 02/15/17 15:43 Morphine Sulfate (Morphine) 2 mg IVP Q4H PRN PRN Reason: Severe Pain Stop: 02/16/17 10:57 Last Admin: 12/21/16 18:36 Dose: 2 mg Ondansetron HCl (Zofran) 4 mg IV Q8H PRN PRN Reason: Nausea / Vomiting Stop: 02/14/17 21:19 Last Admin: 12/17/16 12:53 Dose: 4 mg Pantoprazole Sodium (Protonix) 40 mg GT Q24H DC Stop: 02/14/17 21:29 Last Admin: 12/21/16 22:28 Dose: 40 mg Potassium Chloride (Potassium Chloride Elixir) 40 meq GT BID DC Stop: 12/23/16 09:59 Last Admin: 12/22/16 09:18 Dose: Not Given Kidney function basically the same with the BUN/creatinine of 34/0.7 Maintain IV hydration Continue feedings Follow-up electrolytes and CBC Add sodium bicarbonate Nutritional Asmnt/Malnutr-PDOC - Dietary Evaluation Malnutrition Findings (Please click <Entered> for more info): Nutritional Asmnt/Malnutrition Start: 12/18/16 14: 50 Text: Status: Complete Freq: Document 12/18/16 14:51 GSUN (Rec: 12/18/16 15:26 GSUN [email or web address]) Nutritional Asmnt/Malnutrition Patient General Information Nutritional Screening Consult Diagnosis Sepsis, sepsis shock, sacral wound stage 4, DM2, diarrhea, CKD vs PER CKD Pertinent Medical Hx/Surgical Hx HTN, bronchitis, penumonia, dementia, constipation, GERD, gastritis, anxiety, psychosis, muscle atrophy, weakness, stiffness, acute renal failure , UTI, osteoporosis Subjective Information 66 year old female from SNF. RD consult for wound. Pt noted with consistent diarrhea. Spoke to Dr. Gonzalez on the phone this AM. Current diet order per Nutren 1.0 at 40ml/hr vs Glucerna at 40ml/hr . RD called Dr. Gonzalez back for clarification at around 11 :30am, waiting for callback. RD endorsed to RN Nabila regarding enteral feeding recommendations. Plan for aggressiveh dyration noted in MD notes, also noted just cover glucose with higher dose of insulin. Observed Diabetisource running at 50ml/ hr during visit. No severe muscle/fat wasting noted. CBW 133.3lb with equipment removed . Current Diet Order/ Nutrition Support Glucerna 40ml/hr vs Nutren 1.0 40ml/hr Pertinent Medications Vitamin C, D5W, Novolog, Novolin, Culturelle, Flagyl, Vancomycin, Morphine, Zofran, Protonix Pertinent Labs 12/16: A1c 7.1H 12/18: sodium 164H, BUN 121H, creatinine 2.4H, glucose 326H Nutritional Hx/Data Height 1.63 m Height (Calculated Centimeters) 162.6 Current Weight (lbs) 60.464 kg Weight (Calculated Kilograms) 60.5 Weight (Calculated Grams) 58795.9 [place] Body Weight 120 Weight Status Approriate GI Symptoms GI Symptoms Diarrhea Difficult in: Chewing Swallowing Usual diet at home [place] Care: Jevity 1.2 at 70ml/hr x 20hrs, prostat Skin Integrity/Comment: Ruslan 11. note: sacral wound stage 4 Estimated Nutritional Goals Calories/Kcals/Kg IBW 120lb/54.5kg due to questionable weights obtained Kcals Calculated 1635-1980kcal (30-35kcal/kg, sepsis, skin integrity, bedridden) Protein Calculated 76-98g (1.4-1.8g/kg, renal vs sacral wound stage 4) Fluid: ml Per MD (plan for aggressive hydration) Nutritional Problem 3. Problem Problem Increased kcal andp rot needs realted to Etiology hypermetabolic state, skin integrity aeb Signs/Symptoms: sepsis, sacral wound stage 4 2. Problem Problem Altered nutrition related laboratory values related to Etiology DM aeb Signs/Symptoms: A1c 7.1, glucose >180 1. Problem Problem Altered GI function related to Etiology unknown etiology aeb Signs/Symptoms: consistent diarrhea Intervention/Recommendation Comments 1. Current diet order reads: Nutren 1.0 at 40ml/hr with comment Glucerna ( Diabetisource) at 40ml/hr, providing to meet 59% and 70%, respectively, of lower end of kcal needs. RD called Dr. Gonzalez 11:30am to clarify order, waiting for call back. Current MDs' nutrition related plan of care: aggressive hydration, resolve diarrhea. 2. Recommend Diabetisource at 60ml/hr, providing 1440ml total volume, 1728kcal to meet 100% of lower end of kcal needs, and 86g protein. OR if kept with Nutren 1.0, recommend 1 packet Prosource via tube, 1 packet Arginaid via tube, rate at 70ml/hr, prvoiding 1680ml total volume, 1680kcal, 67g protein from tube feeding. Expected Outcomes/Goals Expected Outcomes/Goals 1. Diarrhea to resolve. 2. Pt to meet 100% of estimated nutritional needs on tube feeding with tolerance.
[2016-12-23] MEDS: Hydrocodone/APAP 5mg/325mg Tab GT PRN (17:12)
[2016-12-23] MEDS: Pantoprazole 40 mg/Packet GT SCH (21:26)
--- NOTE | 2016-12-24 | Infectious Disease Prog Note ---
Infectious Disease Subjective - Review of Systems Service Date: 12/23/16 Subjective: patient remains confused. She continues to have diarrhea, and has rectal tube in place. afebrile today. Infectious Disease Objective - Results Result Diagrams: 12/24/16 05:35 12/24/16 05:35 Recent Labs: Laboratory Last Values WBC 15.5 Th/cmm (4.8-10.8) H 12/23/16 05:26 RBC 2.70 Mil/cmm (3.80-5.20) L 12/23/16 05:26 Hgb 7.9 gm/dL (11.7-16.1) L* 12/23/16 05:26 Hct 23.9 % (35.0-45.0) L* 12/23/16 05:26 MCV 88.5 fl (81-100) 12/23/16 05:26 MCH 29.3 pg (27.0-31.0) 12/23/16 05:26 MCHC Differential 33.1 pg (28.0-36.0) 12/23/16 05:26 RDW 16.4 % (11.5-20.0) 12/23/16 05:26 Plt Count 244 Th/cmm (150-400) 12/23/16 05:26 MPV 10.7 fl 12/23/16 05:26 Neutrophils % 76.3 % (40.0-80.0) 12/21/16 06:41 Band Neutrophils % 1 % (0-10) 12/23/16 05:26 Lymphocytes % 15.9 % (20.0-50.0) L 12/21/16 06:41 Monocytes % 3.8 % (2.0-10.0) 12/21/16 06:41 Eosinophils % 3.7 % (0.0-5.0) 12/21/16 06:41 Basophils % 0.3 % (0.0-2.0) 12/21/16 06:41 Neutrophils (Manual) 76 % (40-80) 12/23/16 05:26 Lymphocytes 18 % (20-50) L 12/23/16 05:26 Monocytes 4 % (2-10) 12/22/16 06:12 Eosinophils 5 % (0-5) 12/23/16 05:26 Platelet Estimate ADEQUATE (NORMAL) 12/23/16 05:26 Platelet Morphology NORMAL (NORMAL) 12/18/16 04:46 Polychromasia 1+ 12/17/16 06:36 Anisocytosis 1+ 12/18/16 04:46 RBC Morph Micro Appear ABNORMAL (NORMAL) 12/18/16 04:46 ESR > 140 mm/hr (0-30) H 12/19/16 04:40 PT 10.2 SECONDS (9.5-11.5) 12/21/16 08:30 INR 0.98 (0.5-1.4) 12/21/16 08:30 PTT (Actin FS) 24.7 SECONDS (26.0-38.0) L 12/21/16 08:30 Sodium 143 mEq/L (136-145) 12/23/16 05:26 Potassium 4.4 mEq/L (3.5-5.1) 12/23/16 05:26 Chloride 118 mEq/L (98-107) H 12/23/16 05:26 Carbon Dioxide 21.5 mEq/L (21.0-31.0) 12/23/16 05:26 Anion Gap 7.9 (7.0-16.0) 12/23/16 05:26 BUN 34 mg/dL (7-25) H 12/23/16 05:26 Creatinine 0.7 mg/dL (0.6-1.2) 12/23/16 05:26 Est GFR ( Amer) > 60.0 ml/min (>90) 12/23/16 05:26 Est GFR (Non-Af Amer) > 60.0 ml/min 12/23/16 05:26 BUN/Creatinine Ratio 48.6 12/23/16 05:26 Glucose 132 mg/dL (70-105) H 12/23/16 05:26 POC Glucose 117 MG/DL (70 - 105) H 12/23/16 21:32 Hemoglobin A1c % 7.1 % (4.0-6.0) H 12/16/16 18:45 Whole Bld Lactic Acid 1.42 mmol/L (0.60-1.99) 12/20/16 04:40 Calcium 8.1 mg/dL (8.6-10.3) L 12/23/16 05:26 Magnesium 2.0 mg/dL (1.9-2.7) 12/20/16 04:40 Iron 38 ug/dL (27-139) 12/18/16 04:46 TIBC 168 ug/dL (250-450) L 12/18/16 04:46 Iron Saturation 23 % (15-55) 12/18/16 04:46 Unsaturated IBC 130 ug/dL (118-369) 12/18/16 04:46 Total Bilirubin 0.2 mg/dL (0.3-1.0) L 12/23/16 05:26 AST 15 U/L (13-39) 12/23/16 05:26 ALT 16 U/L (7-52) 12/23/16 05:26 Alkaline Phosphatase 69 U/L (34-104) 12/23/16 05:26 Ammonia 36 umol/L (16-53) 12/19/16 19:22 C-Reactive Protein 19.8 mg/dL (0.0-0.9) H 12/19/16 04:40 B-Natriuretic Peptide 385.0 pg/mL (5.0-100.0) H 12/17/16 06:36 Total Protein 5.6 gm/dL (6.0-8.3) L 12/23/16 05:26 Albumin 2.3 gm/dL (3.7-5.3) L 12/23/16 05:26 Globulin 3.3 gm/dL 12/23/16 05:26 Albumin/Globulin Ratio 0.7 (1.0-1.8) L 12/23/16 05:26 TSH 1.38 uIU/ml (0.34-5.60) 12/17/16 06:36 Urine Source [place] 12/16/16 18:40 Urine Color YELLOW 12/16/16 18:40 Urine Clarity HAZY (CLEAR) 12/16/16 18:40 Urine pH >=9.0 12/16/16 18:40 Ur Specific Anna 1.010 (1.005-1.030) 12/16/16 18:40 Urine Protein >300 mg/dL (NEGATIVE) H 12/16/16 18:40 Urine Glucose (UA) 250 mg/dL (NEGATIVE) H 12/16/16 18:40 Urine Ketones NEGATIVE mg/dL (NEGATIVE) 12/16/16 18:40 Urine Blood NEGATIVE (NEGATIVE) 12/16/16 18:40 Urine Nitrate POSITIVE (NEGATIVE) H 12/16/16 18:40 Urine Bilirubin NEGATIVE (NEGATIVE) 12/16/16 18:40 Urine Urobilinogen 0.2 E.U./dL (0.2 - 1.0) 12/16/16 18:40 Ur Leukocyte Esterase SMALL (NEGATIVE) H 12/16/16 18:40 Urine RBC 0-2 /hpf (0-5) 12/16/16 18:40 Urine WBC 50-100 /hpf (0-5) H 12/16/16 18:40 Ur Epithelial Cells FEW /lpf (FEW) 12/16/16 18:40 Triple Phos Crystals FEW /hpf (FEW) 12/16/16 18:40 Urine Bacteria MANY /hpf (NONE SEEN) 12/16/16 18:40 Vancomycin Trough 27.2 ug/mL (10-20) H 12/21/16 08:30 Random Vancomycin 20.5 ug/mL (5.0-40.0) 12/22/16 06:12 Blood Type A POSITIVE 12/17/16 09:45 Antibody Screen NEGATIVE 12/17/16 09:45 Crossmatch See Detail 12/17/16 09:45 - Physical Exam Vitals and I&O: Vital Signs Temp 98.3 F 12/23/16 20:00 Pulse 83 12/23/16 20:00 Resp 18 12/23/16 20:00 BP 94/51 12/23/16 20:00 Pulse Ox 99 12/23/16 20:00 Intake & Output 12/23/16 12/23/16 12/24/16 06:59 18:59 06:59 Intake Total 6181.198 5297 100 Output Total 880 15 Balance 1582.343 0494 85 Weight (lbs) 65.363 kg 65.317 kg 65.317 kg Intake: Intake, IV Amount 2737.822 0436 100 D5-0.45NS 1,000 ml @ 100 627.203 2234 mls/hr IV .Q10H DC Rx#: [id number] DAPTOmycin 360 mg In 100 Sodium Chloride 0.9% 100 ml @ 100 mls/hr IV Q24H DC Rx#:[id number] Meropenem 1 gm In Sodium 100 100 100 Chloride 0.9% 100 ml @ 100 mls/hr IV Q12HR DC Rx#:[id number] Oral 0 Tube Feeding 720 Other 400 Output: Gastric Drainage 15 Urine 880 Other: # Bowel Movements 1 Stool Characteristics Soft Soft Soft Brown Brown Brown Active Medications: Current Medications Acetaminophen (Tylenol 650mg/20.3ml Suspension) 650 mg GT Q6HR PRN PRN Reason: Pain or Fever >101 Stop: 02/14/17 21:15 Last Admin: 12/20/16 03:55 Dose: 650 mg Acetaminophen/Hydrocodone Bitart ([place] 5mg/325mg) 1 tab GT Q4H PRN PRN Reason: Pain (Severe) Stop: 02/14/17 21:15 Last Admin: 12/23/16 17:12 Dose: 1 tab Albuterol Sulfate (Albuterol 2.5mg/3ml Neb Ud) 2.5 mg HHN Q2HRT PRN PRN Reason: Shortness of Breath or Wheeze Stop: 02/14/17 21:19 Albuterol/Ipratropium (Duoneb Neb) 3 ml HHN Q6HRT [facility] Stop: 02/15/17 00:59 Last Admin: 12/23/16 20:46 Dose: 3 ml Ascorbic Acid (Vitamin C) 500 mg GT DAILY [facility] Stop: 02/15/17 08:59 Last Admin: 12/23/16 09:29 Dose: 500 mg Bisacodyl (Dulcolax 10 Mg Supp) 10 mg RC DAILY PRN PRN Reason: IF MOM INEFFECTIVE Stop: 02/14/17 21:15 Clonidine HCl (Catapres) 0.1 mg PO Q6H PRN PRN Reason: SBP GREATER THAN 160 Stop: 02/14/17 21:19 Diphenoxylate HCl/Atropine (Lomotil) 2 tab PO TID PRN PRN Reason: Diarrhea Stop: 02/19/17 12:01 Guaifenesin (Robitussin) 200 mg PO Q4HR PRN PRN Reason: Cough or Congestion Stop: 02/14/17 21:19 Meropenem 1 gm/ Sodium (Chloride) 100 mls @ 100 mls/hr IV Q12HR [facility] Stop: 02/16/17 12:59 Last Infusion: 12/23/16 22:27 Dose: Infused Daptomycin 360 mg/ Sodium (Chloride) 100 mls @ 100 mls/hr IV Q24H [facility] Stop: 02/19/17 11:14 Last Infusion: 12/23/16 13:48 Dose: Infused Dextrose/Sodium Chloride (D5-0.45ns) 1,000 mls @ 100 mls/hr IV .Q10H DC Stop: 02/20/17 09:54 Last Admin: 12/23/16 10:12 Dose: 100 mls/hr Insulin Aspart (Novolog Insulin Sliding Scale) 0 units SUBQ ACHS DC PRN Reason: Protocol Stop: 02/15/17 20:59 Last Admin: 12/23/16 21:30 Dose: Not Given Insulin Human NPH (Novolin N) 20 units SUBQ BIDAC DC PRN Reason: Protocol Stop: 02/16/17 07:29 Last Admin: 12/23/16 17:14 Dose: Not Given Ipratropium [place] (Atrovent Neb 0.5mg/2.5ml) 0.5 mg IH Q2HRT PRN PRN Reason: Shortness of Breath or Wheeze Stop: 02/14/17 21:19 Lactobacillus Rhamnosus (Culturelle) 1 each GT Q12H DC Stop: 02/14/17 21:29 Last Admin: 12/23/16 21:27 Dose: 1 each Loperamide HCl (Imodium 1mg/5ml Suspension) 2 mg GT Q4H PRN PRN Reason: Diarrhea Stop: 02/14/17 21:15 Lorazepam (Ativan) 0.5 mg GT Q6H PRN; Protocol PRN Reason: Anxiety Stop: 02/14/17 21:15 Last Admin: 12/18/16 23:53 Dose: 0.5 mg Midodrine (Proamatine) 10 mg PO TID DC Stop: 02/17/17 20:59 Last Admin: 12/23/16 21:27 Dose: 10 mg Miscellaneous (Probiotic Screen) 1 ea MC PRN PRN PRN Reason: PROTOCOL Stop: 02/15/17 15:43 Morphine Sulfate (Morphine) 2 mg IVP Q4H PRN PRN Reason: Severe Pain Stop: 02/16/17 10:57 Last Admin: 12/21/16 18:36 Dose: 2 mg Ondansetron HCl (Zofran) 4 mg IV Q8H PRN PRN Reason: Nausea / Vomiting Stop: 02/14/17 21:19 Last Admin: 12/17/16 12:53 Dose: 4 mg Pantoprazole Sodium (Protonix) 40 mg GT Q24H DC Stop: 02/14/17 21:29 Last Admin: 12/23/16 21:26 Dose: 40 mg Sodium Bicarbonate (Sodium Bicarbonate) 650 mg PO BID DC PRN Reason: Protocol Stop: 02/21/17 16:59 Last Admin: 12/23/16 17:12 Dose: 650 mg General: no acute distress, cachectic HEENT: atraumatic, normocephalic, PERRLA, EOMI, moist mucous membrane Neck: supple, no thyromegaly Cardiovascular: S1S2, regular Lungs: clear to auscultation bilaterally, clear to percussion Abdomen: soft, no tender, no distended Extremities: no cyanosis, no clubbing, no edema Neurological: awake, alert, other (confused.) Skin: other (stage 4 sacral decubitus) - Procedures Procedures: Procedures Procedure Code Date ASSISTANCE WITH RESPIRATORY VENTILATION, 24-96 HRS, CPAP [id number] 09/12/16 BLOOD TRANSFUSION SERVICE 40325 12/16/16 EXCISION OF BACK SUBCU/FASCIA, OPEN APPROACH [id number] 12/16/16 [place] [address] 04/15/16 IMMUNIZATION ADMIN 38506 04/15/16 INSERT PICC CATH 28469 04/15/16 INSERTION OF INFUSION DEVICE INTO R ATRIUM, PERC APPROACH [id number] 04/15/16 INTRODUCTION OF SERUM/TOX/VACCINE INTO MUSCLE, PERC APPROACH [id number] 04/15/16 POS AIRWAY PRESSURE CPAP 03981 09/12/16 REMOVAL OF PRESSURE SORE 96282 12/16/16 TRANSFUSE NONAUT RED BLOOD CELLS IN PERIPH VEIN, PERC [id number] 12/16/16 Infectious Disease Assmt/Plan - Problem List Patient Problems: All Active Problems MRSA (methicillin resistant Staphylococcus aureus) septicemia (Acute) A41.02 MRSA septicemia (Acute) proteus sepsis (Acute) proteus sepsis (Acute) proteus urinary tract infection (Acute) proteus urinary tract infection (Acute) FEVER WITH ELEVATED WBC, BUN (Acute) Hyperosmolality and hypernatremia (Acute) E87.0 Weakness (Acute) azotemia better (Acute) - Assessment Assessment: 1. Staphylococcus aureus, MRSA sepsis most likey source is sacral wound, clinically osteomyelitis with very elevated ESR and CRP. 2. GNR sepsis. likely source is sacral wound and UTI. 3. UTI , pyelonephritis. 4. Sepsis shock improving. 5. 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 6. DM2 7. UTI: Proteus. 8. 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 9. Diarrhea, C diff ruled out. 10. Hypokalemia. 11. metabolic acidosis. 12. Dementia. Recommendations: Will continue meropenem. Will change daptomycin to vanco as bacteremia has cleared cleared. Continue lomotol. May get LTAC eval. Nutritional Asmnt/Malnutr-PDOC - Dietary Evaluation Malnutrition Findings (Please click <Entered> for more info): Nutritional Asmnt/Malnutrition Start: 12/18/16 14: 50 Text: Status: Complete Freq: Document 12/18/16 14:51 GSUN (Rec: 12/18/16 15:26 GSUN [email or web address]) Nutritional Asmnt/Malnutrition Patient General Information Nutritional Screening Consult Diagnosis Sepsis, sepsis shock, sacral wound stage 4, DM2, diarrhea, CKD vs PER CKD Pertinent Medical Hx/Surgical Hx HTN, bronchitis, penumonia, dementia, constipation, GERD, gastritis, anxiety, psychosis, muscle atrophy, weakness, stiffness, acute renal failure , UTI, osteoporosis Subjective Information 66 year old female from SNF. RD consult for wound. Pt noted with consistent diarrhea. Spoke to Dr. Gonzalez on the phone this AM. Current diet order per Nutren 1.0 at 40ml/hr vs Glucerna at 40ml/hr . RD called Dr. Gonzalez back for clarification at around 11 :30am, waiting for callback. RD endorsed to RN Nabila regarding enteral feeding recommendations. Plan for aggressiveh dyration noted in MD notes, also noted just cover glucose with higher dose of insulin. Observed Diabetisource running at 50ml/ hr during visit. No severe muscle/fat wasting noted. CBW 133.3lb with equipment removed . Current Diet Order/ Nutrition Support Glucerna 40ml/hr vs Nutren 1.0 40ml/hr Pertinent Medications Vitamin C, D5W, Novolog, Novolin, Culturelle, Flagyl, Vancomycin, Morphine, Zofran, Protonix Pertinent Labs 12/16: A1c 7.1H 12/18: sodium 164H, BUN 121H, creatinine 2.4H, glucose 326H Nutritional Hx/Data Height 1.63 m Height (Calculated Centimeters) 162.6 Current Weight (lbs) 60.464 kg Weight (Calculated Kilograms) 60.5 Weight (Calculated Grams) 81235.9 [place] Body Weight 120 Weight Status Approriate GI Symptoms GI Symptoms Diarrhea Difficult in: Chewing Swallowing Usual diet at home [place] Care: Jevity 1.2 at 70ml/hr x 20hrs, prostat Skin Integrity/Comment: Ruslan 11. MD note: sacral wound stage 4 Estimated Nutritional Goals Calories/Kcals/Kg IBW 120lb/54.5kg due to questionable weights obtained Kcals Calculated 1635-1980kcal (30-35kcal/kg, sepsis, skin integrity, bedridden) Protein Calculated 76-98g (1.4-1.8g/kg, renal vs sacral wound stage 4) Fluid: ml Per MD (plan for aggressive hydration) Nutritional Problem 3. Problem Problem Increased kcal andp rot needs realted to Etiology hypermetabolic state, skin integrity aeb Signs/Symptoms: sepsis, sacral wound stage 4 2. Problem Problem Altered nutrition related laboratory values related to Etiology DM aeb Signs/Symptoms: A1c 7.1, glucose >180 1. Problem Problem Altered GI function related to Etiology unknown etiology aeb Signs/Symptoms: consistent diarrhea Intervention/Recommendation Comments 1. Current diet order reads: Nutren 1.0 at 40ml/hr with comment Glucerna ( Diabetisource) at 40ml/hr, providing to meet 59% and 70%, respectively, of lower end of kcal needs. RD called Dr. Gonzalez 11:30am to clarify order, waiting for call back. Current MDs' nutrition related plan of care: aggressive hydration, resolve diarrhea. 2. Recommend Diabetisource at 60ml/hr, providing 1440ml total volume, 1728kcal to meet 100% of lower end of kcal needs, and 86g protein. OR if kept with Nutren 1.0, recommend 1 packet Prosource via tube, 1 packet Arginaid via tube, rate at 70ml/hr, prvoiding 1680ml total volume, 1680kcal, 67g protein from tube feeding. Expected Outcomes/Goals Expected Outcomes/Goals 1. Diarrhea to resolve. 2. Pt to meet 100% of estimated nutritional needs on tube feeding with tolerance.
[2016-12-24] MEDS: Hydrocodone/APAP 5mg/325mg Tab GT PRN ×2 (00:55→08:59)
[2016-12-24] MEDS: Albuterol/Ipratropium Neb 3 ML AERS HHN SCH ×3 (01:19→19:11)
[2016-12-24] MEDS: D5-0.45NS 1,000 ML IV SCH ×2 (05:07→17:31)
[2016-12-24 06:02] LABS: % BASOPHILS 0.5 % (0.0-2.0); % EOSINOPHILS 5.2 % (0.0-5.0); % LYMPHOCYTES 21.3 % (20.0-50.0); % MONOCYTES 4.3 % (2.0-10.0); % NEUTROPHILS 68.7 % (40.0-80.0); MEAN CELL VOLUME 88.4 fl (81-100); MEAN CORPUSCULAR HEMOGLOBIN 29.5 pg (27.0-31.0); MEAN CORPUSCULAR HGB CONC 33.3 pg (28.0-36.0); MEAN PLATELET VOLUME 10.3 fl; NEUTROPHILE ABSOLUTE 9.3 Th/cmm (1.8-8.0); PLATELET COUNT 244 Th/cmm (150-400); RED CELL DISTRIBUTION WIDTH 15.9 % (11.5-20.0)
[2016-12-24 06:08] LABS: ALB/GLOB RATIO 0.7 (1.0-1.8); ALKALINE PHOSPHATASE 67 U/L (34-104); ANION GAP 7.7 (7.0-16.0); BILIRUBIN,TOTAL 0.3 mg/dL (0.3-1.0); BUN - UREA NITROGEN 28 mg/dL (7-25); BUN/CREATININE RATIO 46.7; CALCIUM SERUM 8.2 mg/dL (8.6-10.3); CHLORIDE 115 mEq/L (98-107); CREATININE - SERUM 0.6 mg/dL (0.6-1.2); GLUCOSE 99 mg/dL (70-105); POTASSIUM SERUM 4.7 mEq/L (3.5-5.1); SGOT 13 U/L (13-39); SGPT/ALT 14 U/L (7-52); SODIUM SERUM 139 mEq/L (136-145)
[2016-12-24 06:25] LABS: WHITE BLOOD COUNT 13.6 Th/cmm (4.8-10.8)
[2016-12-24 06:26] LABS: HEMATOCRIT 23.8 % (35.0-45.0); HEMOGLOBIN 7.9 gm/dL (11.7-16.1)
[2016-12-24] MEDS: INSULIN HUMAN ISOPHANE (NPH) 100 UNITS/ML SUBQ SCH ×2 (06:47→17:44)
[2016-12-24] MEDS: INSULIN ASPART SLIDING SCALE 100 UNITS/ML UNIT SUBQ SCH ×4 (06:47→21:40)
[2016-12-24] MEDS: Venelex 60gm Tube TP SCH (08:58)
[2016-12-24] MEDS: Meropenem 1 GM in Sodium Chloride 0.9% 100 ML IV SCH ×2 (08:58→21:21)
[2016-12-24] MEDS: Ascorbic Acid 500 mg/5 mL UDC GT SCH (08:59)
[2016-12-24] MEDS: Multivitamin w/ Minerals Tab GT SCH (09:00)
[2016-12-24] MEDS: Lactobacillus Rhamnosus 10 Billion CFU Capsule GT SCH ×2 (09:00→21:22)
--- NOTE | 2016-12-24 10:12 | Diagnostic Imaging Report ---
Portable chest x-ray HISTORY: Shortness of breath Compared with prior exam of December 21, 2016, there is a poor inspiration there is also accentuation of the interstitial lung markings. Questionable faint infiltrate in the right lower lobe. This may be related to the poor inspiration. IMPRESSION: 1. Poor inspiration with accentuation of the lower interstitial lung markings. She will faint infiltrate in the right lower lobe. Follow-up recommended.
--- NOTE | 2016-12-24 15:34 | Internal Medicine Prog Note ---
Internal Medicine Subjective - Subjective Service Date: 12/24/16 (on wound vac) Patient is:: awake, non-verbal, non-interactive, arousable, in bed, denies any new complaints Patient Complaints of:: congestion, cough, bloated, SOB Per staff patient has:: no adverse event, no episodes of fall, tolerating meds Internal Medicine Objective - Results Result Diagrams: 12/24/16 05:35 12/24/16 05:35 Recent Labs: Laboratory Last Values WBC 13.6 Th/cmm (4.8-10.8) H 12/24/16 05:35 RBC 2.70 Mil/cmm (3.80-5.20) L 12/24/16 05:35 Hgb 7.9 gm/dL (11.7-16.1) L* 12/24/16 05:35 Hct 23.8 % (35.0-45.0) L* 12/24/16 05:35 MCV 88.4 fl (81-100) 12/24/16 05:35 MCH 29.5 pg (27.0-31.0) 12/24/16 05:35 MCHC Differential 33.3 pg (28.0-36.0) 12/24/16 05:35 RDW 15.9 % (11.5-20.0) 12/24/16 05:35 Plt Count 244 Th/cmm (150-400) 12/24/16 05:35 MPV 10.3 fl 12/24/16 05:35 Neutrophils % 68.7 % (40.0-80.0) 12/24/16 05:35 Band Neutrophils % 1 % (0-10) 12/23/16 05:26 Lymphocytes % 21.3 % (20.0-50.0) 12/24/16 05:35 Monocytes % 4.3 % (2.0-10.0) 12/24/16 05:35 Eosinophils % 5.2 % (0.0-5.0) H 12/24/16 05:35 Basophils % 0.5 % (0.0-2.0) 12/24/16 05:35 Neutrophils (Manual) 76 % (40-80) 12/23/16 05:26 Lymphocytes 18 % (20-50) L 12/23/16 05:26 Monocytes 4 % (2-10) 12/22/16 06:12 Eosinophils 5 % (0-5) 12/23/16 05:26 Platelet Estimate ADEQUATE (NORMAL) 12/23/16 05:26 Platelet Morphology NORMAL (NORMAL) 12/18/16 04:46 Polychromasia 1+ 12/17/16 06:36 Anisocytosis 1+ 12/18/16 04:46 RBC Morph Micro Appear ABNORMAL (NORMAL) 12/18/16 04:46 ESR > 140 mm/hr (0-30) H 12/19/16 04:40 PT 10.2 SECONDS (9.5-11.5) 12/21/16 08:30 INR 0.98 (0.5-1.4) 12/21/16 08:30 PTT (Actin FS) 24.7 SECONDS (26.0-38.0) L 12/21/16 08:30 Sodium 139 mEq/L (136-145) 12/24/16 05:35 Potassium 4.7 mEq/L (3.5-5.1) 12/24/16 05:35 Chloride 115 mEq/L (98-107) H 12/24/16 05:35 Carbon Dioxide 21.0 mEq/L (21.0-31.0) 12/24/16 05:35 Anion Gap 7.7 (7.0-16.0) 12/24/16 05:35 BUN 28 mg/dL (7-25) H 12/24/16 05:35 Creatinine 0.6 mg/dL (0.6-1.2) 12/24/16 05:35 Est GFR ( Amer) > 60.0 ml/min (>90) 12/24/16 05:35 Est GFR (Non-Af Amer) > 60.0 ml/min 12/24/16 05:35 BUN/Creatinine Ratio 46.7 12/24/16 05:35 Glucose 99 mg/dL (70-105) 12/24/16 05:35 POC Glucose 130 MG/DL (70 - 105) H 12/24/16 12:22 Hemoglobin A1c % 7.1 % (4.0-6.0) H 12/16/16 18:45 Whole Bld Lactic Acid 1.42 mmol/L (0.60-1.99) 12/20/16 04:40 Calcium 8.2 mg/dL (8.6-10.3) L 12/24/16 05:35 Magnesium 2.0 mg/dL (1.9-2.7) 12/20/16 04:40 Iron 38 ug/dL (27-139) 12/18/16 04:46 TIBC 168 ug/dL (250-450) L 12/18/16 04:46 Iron Saturation 23 % (15-55) 12/18/16 04:46 Unsaturated IBC 130 ug/dL (118-369) 12/18/16 04:46 Total Bilirubin 0.3 mg/dL (0.3-1.0) 12/24/16 05:35 AST 13 U/L (13-39) 12/24/16 05:35 ALT 14 U/L (7-52) 12/24/16 05:35 Alkaline Phosphatase 67 U/L (34-104) 12/24/16 05:35 Ammonia 36 umol/L (16-53) 12/19/16 19:22 C-Reactive Protein 19.8 mg/dL (0.0-0.9) H 12/19/16 04:40 B-Natriuretic Peptide 385.0 pg/mL (5.0-100.0) H 12/17/16 06:36 Total Protein 5.8 gm/dL (6.0-8.3) L 12/24/16 05:35 Albumin 2.3 gm/dL (3.7-5.3) L 12/24/16 05:35 Globulin 3.5 gm/dL 12/24/16 05:35 Albumin/Globulin Ratio 0.7 (1.0-1.8) L 12/24/16 05:35 TSH 1.38 uIU/ml (0.34-5.60) 12/17/16 06:36 Urine Source [place] 12/16/16 18:40 Urine Color YELLOW 12/16/16 18:40 Urine Clarity HAZY (CLEAR) 12/16/16 18:40 Urine pH >=9.0 12/16/16 18:40 Ur Specific [place] 1.010 (1.005-1.030) 12/16/16 18:40 Urine Protein >300 mg/dL (NEGATIVE) H 12/16/16 18:40 Urine Glucose (UA) 250 mg/dL (NEGATIVE) H 12/16/16 18:40 Urine Ketones NEGATIVE mg/dL (NEGATIVE) 12/16/16 18:40 Urine Blood NEGATIVE (NEGATIVE) 12/16/16 18:40 Urine Nitrate POSITIVE (NEGATIVE) H 12/16/16 18:40 Urine Bilirubin NEGATIVE (NEGATIVE) 12/16/16 18:40 Urine Urobilinogen 0.2 E.U./dL (0.2 - 1.0) 12/16/16 18:40 Ur Leukocyte Esterase SMALL (NEGATIVE) H 12/16/16 18:40 Urine RBC 0-2 /hpf (0-5) 12/16/16 18:40 Urine WBC 50-100 /hpf (0-5) H 12/16/16 18:40 Ur Epithelial Cells FEW /lpf (FEW) 12/16/16 18:40 Triple Phos Crystals FEW /hpf (FEW) 12/16/16 18:40 Urine Bacteria MANY /hpf (NONE SEEN) 12/16/16 18:40 Vancomycin Trough 27.2 ug/mL (10-20) H 12/21/16 08:30 Random Vancomycin 20.5 ug/mL (5.0-40.0) 12/22/16 06:12 Blood Type A POSITIVE 12/17/16 09:45 Antibody Screen NEGATIVE 12/17/16 09:45 Crossmatch See Detail 12/17/16 09:45 - Physical Exam Vitals and I&O: Vital Signs Temp 98.4 F 12/24/16 05:26 Pulse 91 12/24/16 12:05 Resp 18 12/24/16 12:05 BP 101/63 12/24/16 05:26 Pulse Ox 96 12/24/16 12:05 Intake & Output 12/23/16 12/24/16 12/24/16 18:59 06:59 18:59 Intake Total 2320 1580 100 Output Total 880 1990 Balance 1440 -410 100 Weight (lbs) 144 lb 143 lb 8 oz Intake: Intake, IV Amount 1200 1100 100 D5-0.45NS 1,000 ml @ 100 1000 1000 mls/hr IV .Q10H DC Rx#: [id number] DAPTOmycin 360 mg In 100 Sodium Chloride 0.9% 100 ml @ 100 mls/hr IV Q24H DC Rx#:[id number] Meropenem 1 gm In Sodium 100 100 100 Chloride 0.9% 100 ml @ 100 mls/hr IV Q12HR [facility] Rx#:[id number] Oral 0 Tube Feeding 720 480 Other 400 Output: Gastric Drainage 15 Urine 880 1900 Stool 50 Other 25 Other: # Bowel Movements 1 Stool Characteristics Soft Soft Soft Brown Brown Brown Active Medications: Current Medications Acetaminophen (Tylenol 650mg/20.3ml Suspension) 650 mg GT Q6HR PRN PRN Reason: Pain or Fever >101 Stop: 02/14/17 21:15 Last Admin: 12/20/16 03:55 Dose: 650 mg Acetaminophen/Hydrocodone Bitart ([place] 5mg/325mg) 1 tab GT Q4H PRN PRN Reason: Pain (Severe) Stop: 02/14/17 21:15 Last Admin: 12/24/16 08:59 Dose: 1 tab Albuterol Sulfate (Albuterol 2.5mg/3ml Neb Ud) 2.5 mg HHN Q2HRT PRN PRN Reason: Shortness of Breath or Wheeze Stop: 02/14/17 21:19 Last Admin: 12/24/16 12:05 Dose: 2.5 mg Albuterol/Ipratropium (Duoneb Neb) 3 ml HHN Q6HRT [facility] Stop: 02/15/17 00:59 Last Admin: 12/24/16 07:51 Dose: 3 ml Ascorbic Acid (Vitamin C) 500 mg GT DAILY [facility] Stop: 02/15/17 08:59 Last Admin: 12/24/16 08:59 Dose: 500 mg Bisacodyl (Dulcolax 10 Mg Supp) 10 mg RC DAILY PRN PRN Reason: IF MOM INEFFECTIVE Stop: 02/14/17 21:15 Clonidine HCl (Catapres) 0.1 mg PO Q6H PRN PRN Reason: SBP GREATER THAN 160 Stop: 02/14/17 21:19 Diphenoxylate HCl/Atropine (Lomotil) 2 tab PO TID PRN PRN Reason: Diarrhea Stop: 02/19/17 12:01 Guaifenesin (Robitussin) 200 mg PO Q4HR PRN PRN Reason: Cough or Congestion Stop: 02/14/17 21:19 Meropenem 1 gm/ Sodium (Chloride) 100 mls @ 100 mls/hr IV Q12HR [facility] Stop: 02/16/17 12:59 Last Infusion: 12/24/16 10:00 Dose: Infused Daptomycin 360 mg/ Sodium (Chloride) 100 mls @ 100 mls/hr IV Q24H DC Stop: 02/19/17 11:14 Last Admin: 12/24/16 12:21 Dose: 100 mls/hr Dextrose/Sodium Chloride (D5-0.45ns) 1,000 mls @ 100 mls/hr IV .Q10H DC Stop: 02/20/17 09:54 Last Admin: 12/24/16 05:07 Dose: 100 mls/hr Insulin Aspart (Novolog Insulin Sliding Scale) 0 units SUBQ ACHS DC PRN Reason: Protocol Stop: 02/15/17 20:59 Last Admin: 12/24/16 12:25 Dose: Not Given Insulin Human NPH (Novolin N) 20 units SUBQ BIDAC DC PRN Reason: Protocol Stop: 02/16/17 07:29 Last Admin: 12/24/16 06:47 Dose: Not Given Ipratropium [place] (Atrovent Neb 0.5mg/2.5ml) 0.5 mg IH Q2HRT PRN PRN Reason: Shortness of Breath or Wheeze Stop: 02/14/17 21:19 Lactobacillus Rhamnosus (Culturelle) 1 each GT Q12H DC Stop: 02/14/17 21:29 Last Admin: 12/24/16 09:00 Dose: 1 each Loperamide HCl (Imodium 1mg/5ml Suspension) 2 mg GT Q4H PRN PRN Reason: Diarrhea Stop: 02/14/17 21:15 Lorazepam (Ativan) 0.5 mg GT Q6H PRN; Protocol PRN Reason: Anxiety Stop: 02/14/17 21:15 Last Admin: 12/18/16 23:53 Dose: 0.5 mg Midodrine (Proamatine) 10 mg PO TID DC Stop: 02/17/17 20:59 Last Admin: 12/24/16 08:59 Dose: 10 mg Miscellaneous (Probiotic Screen) 1 ea MC PRN PRN PRN Reason: PROTOCOL Stop: 02/15/17 15:43 Morphine Sulfate (Morphine) 2 mg IVP Q4H PRN PRN Reason: Severe Pain Stop: 02/16/17 10:57 Last Admin: 07/13/17 18:36 Dose: 2 mg Ondansetron HCl (Zofran) 4 mg IV Q8H PRN PRN Reason: Nausea / Vomiting Stop: 02/14/17 21:19 Last Admin: 12/17/16 12:53 Dose: 4 mg Pantoprazole Sodium (Protonix) 40 mg GT Q24H DC Stop: 02/14/17 21:29 Last Admin: 12/23/16 21:26 Dose: 40 mg Sodium Bicarbonate (Sodium Bicarbonate) 650 mg PO BID DC PRN Reason: Protocol Stop: 02/21/17 16:59 Last Admin: 12/24/16 08:59 Dose: 650 mg General: lethargic, demented, disheveled, bilateral temporal wasting, cachectic , appears older HEENT: NC/AT Neck: Supple, No LAD Lungs: congested, rales, ronchi Cardiovascular: RRR, Normal S1, Normal S2, without murmur Abdomen: soft, non-tender, globular, +GT, positive bowel sound Extremities: excoriation, contracture, ulcers stage 4 Neurological: no change, lethargic, disorganized, unable to follow command, bedbound, spastic - Procedures Procedures: Procedures Procedure Code Date ASSISTANCE WITH RESPIRATORY VENTILATION, 24-96 HRS, CPAP [id number] 09/12/16 BLOOD TRANSFUSION SERVICE 73450 12/16/16 EXCISION OF BACK SUBCU/FASCIA, OPEN APPROACH [id number] 12/16/16 [place] [id number] 04/15/16 IMMUNIZATION ADMIN [id number] 04/15/16 INSERT PICC CATH [id number] 04/15/16 INSERTION OF INFUSION DEVICE INTO R ATRIUM, PERC APPROACH [id number] 04/15/16 INTRODUCTION OF SERUM/TOX/VACCINE INTO MUSCLE, PERC APPROACH [id number] 04/15/16 POS AIRWAY PRESSURE CPAP [id number] 09/12/16 REMOVAL OF PRESSURE SORE [id number] 12/16/16 TRANSFUSE NONAUT RED BLOOD CELLS IN PERIPH VEIN, PERC [id number] 12/16/16 Internal Medicine Assmt/Plan - Assessment Assessment: hypokalemia severe anemia acute renal failure severe sepsis pnm fever sad decub ulcer sp peg fuctional quad bedridden anemia Urine cx + Proteus Mirabilis MRSA blood leukocytosis lactic acidosis dmooc - Plan Plan: supplemental oxygen bronchodilators as needed ivf continue empiric iv abx montor glucose f/u labs in am wound care Nutritional Asmnt/Malnutr-PDOC - Dietary Evaluation Malnutrition Findings (Please click <Entered> for more info): Nutritional Asmnt/Malnutrition Start: 12/18/16 14: 50 Text: Status: Complete Freq: Document 12/18/16 14:51 GSUN (Rec: 12/18/16 15:26 [id number]) Nutritional Asmnt/Malnutrition Patient General Information Nutritional Screening Consult Diagnosis Sepsis, sepsis shock, sacral wound stage 4, DM2, diarrhea, CKD vs PER CKD Pertinent Medical Hx/Surgical Hx HTN, bronchitis, penumonia, dementia, constipation, GERD, gastritis, anxiety, psychosis, muscle atrophy, weakness, stiffness, acute renal failure , UTI, osteoporosis Subjective Information 66 year old female from SNF. RD consult for wound. Pt noted with consistent diarrhea. Spoke to Dr. Gonzalez on the phone this AM. Current diet order per Nutren 1.0 at 40ml/hr vs Glucerna at 40ml/hr . RD called Dr. Gonzalez back for clarification at around 11 :30am, waiting for callback. RD endorsed to RN Nabila regarding enteral feeding recommendations. Plan for aggressiveh dyration noted in MD notes, also noted just cover glucose with higher dose of insulin. Observed Diabetisource running at 50ml/ hr during visit. No severe muscle/fat wasting noted. CBW 133.3lb with equipment removed . Current Diet Order/ Nutrition Support Glucerna 40ml/hr vs Nutren 1.0 40ml/hr Pertinent Medications Vitamin C, D5W, Novolog, Novolin, Culturelle, Flagyl, Vancomycin, Morphine, Zofran, Protonix Pertinent Labs 12/16: A1c 7.1H 12/18: sodium 164H, BUN 121H, creatinine 2.4H, glucose 326H Nutritional Hx/Data Height 5 ft 4 in Height (Calculated Centimeters) 162.6 Current Weight (lbs) 133 lb 4.8 oz Weight (Calculated Kilograms) 60.5 Weight (Calculated Grams) 79973.9 [place] Body Weight 120 Weight Status Approriate GI Symptoms GI Symptoms Diarrhea Difficult in: Chewing Swallowing Usual diet at home Strum Care: Jevity 1.2 at 70ml/hr x 20hrs, prostat Skin Integrity/Comment: Ruslan Oro. note: sacral wound stage 4 Estimated Nutritional Goals Calories/Kcals/Kg IBW 120lb/54.5kg due to questionable weights obtained Kcals Calculated 1635-1980kcal (30-35kcal/kg, sepsis, skin integrity, bedridden) Protein Calculated 76-98g (1.4-1.8g/kg, renal vs sacral wound stage 4) Fluid: ml Per MD (plan for aggressive hydration) Nutritional Problem 3. Problem Problem Increased kcal andp rot needs realted to Etiology hypermetabolic state, skin integrity aeb Signs/Symptoms: sepsis, sacral wound stage 4 2. Problem Problem Altered nutrition related laboratory values related to Etiology DM aeb Signs/Symptoms: A1c 7.1, glucose >180 1. Problem Problem Altered GI function related to Etiology unknown etiology aeb Signs/Symptoms: consistent diarrhea Intervention/Recommendation Comments 1. Current diet order reads: Nutren 1.0 at 40ml/hr with comment Glucerna ( Diabetisource) at 40ml/hr, providing to meet 59% and 70%, respectively, of lower end of kcal needs. RD called Dr. Gonzalez 11:30am to clarify order, waiting for call back. Current MDs' nutrition related plan of care: aggressive hydration, resolve diarrhea. 2. Recommend Diabetisource at 60ml/hr, providing 1440ml total volume, 1728kcal to meet 100% of lower end of kcal needs, and 86g protein. OR if kept with Nutren 1.0, recommend 1 packet Prosource via tube, 1 packet Arginaid via tube, rate at 70ml/hr, prvoiding 1680ml total volume, 1680kcal, 67g protein from tube feeding. Expected Outcomes/Goals Expected Outcomes/Goals 1. Diarrhea to resolve. 2. Pt to meet 100% of estimated nutritional needs on tube feeding with tolerance.
[2016-12-24] MEDS ORDERED: D5-0.45NS 1,000 ML IV SCH (21:17)
[2016-12-24] MEDS: Pantoprazole 40 mg/Packet GT SCH (21:22)
[2016-12-25] MEDS: Hydrocodone/APAP 5mg/325mg Tab GT PRN (00:01)
[2016-12-25] MEDS: Albuterol/Ipratropium Neb 3 ML AERS HHN SCH ×4 (00:41→18:47)
[2016-12-25 06:40] LABS: % BASOPHILS 0.4 % (0.0-2.0); % EOSINOPHILS 4.1 % (0.0-5.0); % LYMPHOCYTES 16.4 % (20.0-50.0); % MONOCYTES 4.6 % (2.0-10.0); % NEUTROPHILS 74.5 % (40.0-80.0); HEMATOCRIT 25.1 % (35.0-45.0); HEMOGLOBIN 8.4 gm/dL (11.7-16.1); MEAN CELL VOLUME 88.6 fl (81-100); MEAN CORPUSCULAR HEMOGLOBIN 29.7 pg (27.0-31.0); MEAN CORPUSCULAR HGB CONC 33.5 pg (28.0-36.0); MEAN PLATELET VOLUME 9.8 fl; NEUTROPHILE ABSOLUTE 10.4 Th/cmm (1.8-8.0); RED BLOOD COUNT 2.83 Mil/cmm (3.80-5.20); RED CELL DISTRIBUTION WIDTH 15.6 % (11.5-20.0)
[2016-12-25 06:52] LABS: PLATELET COUNT 302 Th/cmm (150-400)
[2016-12-25] MEDS: INSULIN ASPART SLIDING SCALE 100 UNITS/ML UNIT SUBQ SCH ×4 (06:54→21:24)
[2016-12-25] MEDS: INSULIN HUMAN ISOPHANE (NPH) 100 UNITS/ML SUBQ SCH ×2 (06:54→16:50)
[2016-12-25 07:09] LABS: ALB/GLOB RATIO 0.7 (1.0-1.8); ALKALINE PHOSPHATASE 74 U/L (34-104); ANION GAP 8.1 (7.0-16.0); BILIRUBIN,TOTAL 0.3 mg/dL (0.3-1.0); BUN - UREA NITROGEN 27 mg/dL (7-25); CALCIUM SERUM 8.4 mg/dL (8.6-10.3); CARBON DIOXIDE 24.3 mEq/L (21.0-31.0); CHLORIDE 110 mEq/L (98-107); CREATININE - SERUM 0.6 mg/dL (0.6-1.2); GLUCOSE 129 mg/dL (70-105); POTASSIUM SERUM 4.4 mEq/L (3.5-5.1); SGOT 13 U/L (13-39); SGPT/ALT 11 U/L (7-52); SODIUM SERUM 138 mEq/L (136-145)
[2016-12-25] MEDS: Ascorbic Acid 500 mg/5 mL UDC GT SCH (08:45)
[2016-12-25] MEDS: Meropenem 1 GM in Sodium Chloride 0.9% 100 ML IV SCH ×2 (08:45→21:12)
[2016-12-25] MEDS: Multivitamin w/ Minerals Tab GT SCH (08:46)
[2016-12-25] MEDS: Venelex 60gm Tube TP SCH (08:46)
[2016-12-25] MEDS: Lactobacillus Rhamnosus 10 Billion CFU Capsule GT SCH ×2 (08:46→21:15)
[2016-12-25] MEDS: Morphine Sulfate 4 mg/mL 1mL Syr IVP PRN (10:38)
--- NOTE | 2016-12-25 12:24 | Infectious Disease Prog Note ---
Infectious Disease Subjective - Review of Systems Service Date: 12/25/16 Subjective: patient remains confused. afebrile today. Infectious Disease Objective - Results Result Diagrams: 12/25/16 06:10 12/25/16 06:10 Recent Labs: Laboratory Last Values WBC 14.0 Th/cmm (4.8-10.8) H 12/25/16 06:10 RBC 2.83 Mil/cmm (3.80-5.20) L 12/25/16 06:10 Hgb 8.4 gm/dL (11.7-16.1) L 12/25/16 06:10 Hct 25.1 % (35.0-45.0) L 12/25/16 06:10 MCV 88.6 fl (81-100) 12/25/16 06:10 MCH 29.7 pg (27.0-31.0) 12/25/16 06:10 MCHC Differential 33.5 pg (28.0-36.0) 12/25/16 06:10 RDW 15.6 % (11.5-20.0) 12/25/16 06:10 Plt Count 302 Th/cmm (150-400) D 12/25/16 06:10 MPV 9.8 fl 12/25/16 06:10 Neutrophils % 74.5 % (40.0-80.0) 12/25/16 06:10 Band Neutrophils % 1 % (0-10) 12/23/16 05:26 Lymphocytes % 16.4 % (20.0-50.0) L 12/25/16 06:10 Monocytes % 4.6 % (2.0-10.0) 12/25/16 06:10 Eosinophils % 4.1 % (0.0-5.0) 12/25/16 06:10 Basophils % 0.4 % (0.0-2.0) 12/25/16 06:10 Neutrophils (Manual) 76 % (40-80) 12/23/16 05:26 Lymphocytes 18 % (20-50) L 12/23/16 05:26 Monocytes 4 % (2-10) 12/22/16 06:12 Eosinophils 5 % (0-5) 12/23/16 05:26 Platelet Estimate ADEQUATE (NORMAL) 12/23/16 05:26 Platelet Morphology NORMAL (NORMAL) 12/18/16 04:46 Polychromasia 1+ 12/17/16 06:36 Anisocytosis 1+ 12/18/16 04:46 RBC Morph Micro Appear ABNORMAL (NORMAL) 12/18/16 04:46 ESR > 140 mm/hr (0-30) H 12/19/16 04:40 PT 10.2 SECONDS (9.5-11.5) 12/21/16 08:30 INR 0.98 (0.5-1.4) 12/21/16 08:30 PTT (Actin FS) 24.7 SECONDS (26.0-38.0) L 12/21/16 08:30 Sodium 138 mEq/L (136-145) 12/25/16 06:10 Potassium 4.4 mEq/L (3.5-5.1) 12/25/16 06:10 Chloride 110 mEq/L (98-107) H 12/25/16 06:10 Carbon Dioxide 24.3 mEq/L (21.0-31.0) 12/25/16 06:10 Anion Gap 8.1 (7.0-16.0) 12/25/16 06:10 BUN 27 mg/dL (7-25) H 12/25/16 06:10 Creatinine 0.6 mg/dL (0.6-1.2) 12/25/16 06:10 Est GFR ( Amer) > 60.0 ml/min (>90) 12/25/16 06:10 Est GFR (Non-Af Amer) > 60.0 ml/min 12/25/16 06:10 BUN/Creatinine Ratio 45.0 12/25/16 06:10 Glucose 129 mg/dL (70-105) H 12/25/16 06:10 POC Glucose 101 MG/DL (70 - 105) 12/25/16 11:08 Hemoglobin A1c % 7.1 % (4.0-6.0) H 12/16/16 18:45 Whole Bld Lactic Acid 1.42 mmol/L (0.60-1.99) 12/20/16 04:40 Calcium 8.4 mg/dL (8.6-10.3) L 12/25/16 06:10 Magnesium 2.0 mg/dL (1.9-2.7) 12/20/16 04:40 Iron 38 ug/dL (27-139) 12/18/16 04:46 TIBC 168 ug/dL (250-450) L 12/18/16 04:46 Iron Saturation 23 % (15-55) 12/18/16 04:46 Unsaturated IBC 130 ug/dL (118-369) 12/18/16 04:46 Total Bilirubin 0.3 mg/dL (0.3-1.0) 12/25/16 06:10 AST 13 U/L (13-39) 12/25/16 06:10 ALT 11 U/L (7-52) 12/25/16 06:10 Alkaline Phosphatase 74 U/L (34-104) 12/25/16 06:10 Ammonia 36 umol/L (16-53) 12/19/16 19:22 C-Reactive Protein 19.8 mg/dL (0.0-0.9) H 12/19/16 04:40 B-Natriuretic Peptide 385.0 pg/mL (5.0-100.0) H 12/17/16 06:36 Total Protein 6.1 gm/dL (6.0-8.3) 12/25/16 06:10 Albumin 2.5 gm/dL (3.7-5.3) L 12/25/16 06:10 Globulin 3.6 gm/dL 12/25/16 06:10 Albumin/Globulin Ratio 0.7 (1.0-1.8) L 12/25/16 06:10 TSH 1.38 uIU/ml (0.34-5.60) 12/17/16 06:36 Urine Source [place] 12/16/16 18:40 Urine Color YELLOW 12/16/16 18:40 Urine Clarity HAZY (CLEAR) 12/16/16 18:40 Urine pH >=9.0 12/16/16 18:40 Ur Specific [place] 1.010 (1.005-1.030) 12/16/16 18:40 Urine Protein >300 mg/dL (NEGATIVE) H 12/16/16 18:40 Urine Glucose (UA) 250 mg/dL (NEGATIVE) H 12/16/16 18:40 Urine Ketones NEGATIVE mg/dL (NEGATIVE) 12/16/16 18:40 Urine Blood NEGATIVE (NEGATIVE) 12/16/16 18:40 Urine Nitrate POSITIVE (NEGATIVE) H 12/16/16 18:40 Urine Bilirubin NEGATIVE (NEGATIVE) 12/16/16 18:40 Urine Urobilinogen 0.2 E.U./dL (0.2 - 1.0) 12/16/16 18:40 Ur Leukocyte Esterase SMALL (NEGATIVE) H 12/16/16 18:40 Urine RBC 0-2 /hpf (0-5) 12/16/16 18:40 Urine WBC 50-100 /hpf (0-5) H 12/16/16 18:40 Ur Epithelial Cells FEW /lpf (FEW) 12/16/16 18:40 Triple Phos Crystals FEW /hpf (FEW) 12/16/16 18:40 Urine Bacteria MANY /hpf (NONE SEEN) 12/16/16 18:40 Vancomycin Trough 27.2 ug/mL (10-20) H 12/21/16 08:30 Random Vancomycin 20.5 ug/mL (5.0-40.0) 12/22/16 06:12 Blood Type A POSITIVE 12/17/16 09:45 Antibody Screen NEGATIVE 12/17/16 09:45 Crossmatch See Detail 12/17/16 09:45 - Physical Exam Vitals and I&O: Vital Signs Temp 97.9 F 12/25/16 12:00 Pulse 82 12/25/16 12:00 Resp 20 12/25/16 12:00 BP 102/49 12/25/16 12:00 Pulse Ox 97 12/25/16 12:00 Intake & Output 12/24/16 12/25/16 12/25/16 18:59 06:59 18:59 Intake Total 1100 1870 Output Total 3145 Balance 1100 -1275 Weight (lbs) 60.781 kg Intake: Intake, IV Amount 1100 350 D5-0.45NS 1,000 ml @ 100 1000 mls/hr IV .Q10H DC Rx#: [id number] Meropenem 1 gm In Sodium 100 100 Chloride 0.9% 100 ml @ 100 mls/hr IV Q12HR DC Rx#:[id number] Vancomycin HCl 1 gm In 250 Sodium Chloride 0.9% 250 ml @ 165 mls/hr IV Q12H DC Rx#:[id number] Tube Feeding 1320 Other 200 Output: Urine 2650 Stool 400 Other 95 Other: Stool Characteristics Soft Soft Brown Brown Active Medications: Current Medications Acetaminophen (Tylenol 650mg/20.3ml Suspension) 650 mg GT Q6HR PRN PRN Reason: Pain or Fever >101 Stop: 02/14/17 21:15 Last Admin: 12/20/16 03:55 Dose: 650 mg Acetaminophen/Hydrocodone Bitart ([place] 5mg/325mg) 1 tab GT Q4H PRN PRN Reason: Pain (Severe) Stop: 02/14/17 21:15 Last Admin: 12/25/16 00:01 Dose: 1 tab Albuterol Sulfate (Albuterol 2.5mg/3ml Neb Ud) 2.5 mg HHN Q2HRT PRN PRN Reason: Shortness of Breath or Wheeze Stop: 02/14/17 21:19 Last Admin: 12/24/16 12:05 Dose: 2.5 mg Albuterol/Ipratropium (Duoneb Neb) 3 ml HHN Q6HRT DC Stop: 02/15/17 00:59 Last Admin: 12/25/16 07:48 Dose: 3 ml Ascorbic Acid (Vitamin C) 500 mg GT DAILY [facility] Stop: 02/15/17 08:59 Last Admin: 12/25/16 08:45 Dose: 500 mg Bisacodyl (Dulcolax 10 Mg Supp) 10 mg RC DAILY PRN PRN Reason: IF MOM INEFFECTIVE Stop: 02/14/17 21:15 Clonidine HCl (Catapres) 0.1 mg PO Q6H PRN PRN Reason: SBP GREATER THAN 160 Stop: 02/14/17 21:19 Diphenoxylate HCl/Atropine (Lomotil) 2 tab PO TID PRN PRN Reason: Diarrhea Stop: 02/19/17 12:01 Guaifenesin (Robitussin) 200 mg PO Q4HR PRN PRN Reason: Cough or Congestion Stop: 02/14/17 21:19 Meropenem 1 gm/ Sodium (Chloride) 100 mls @ 100 mls/hr IV Q12HR [facility] Stop: 02/16/17 12:59 Last Admin: 12/25/16 08:45 Dose: 100 mls/hr Vancomycin HCl 1 gm/ Sodium (Chloride) 250 mls @ 165 mls/hr IV Q12H [facility] Stop: 02/22/17 21:59 Last Admin: 12/25/16 10:01 Dose: 165 mls/hr Dextrose/Sodium Chloride (D5-0.45ns) 1,000 mls @ 70 mls/hr IV .[id number] [facility] Stop: 02/20/17 09:54 Insulin Aspart (Novolog Insulin Sliding Scale) 0 units SUBQ ACHS DC PRN Reason: Protocol Stop: 02/15/17 20:59 Last Admin: 12/25/16 11:46 Dose: Not Given Insulin Human NPH (Novolin N) 20 units SUBQ BIDAC DC PRN Reason: Protocol Stop: 02/16/17 07:29 Last Admin: 12/25/16 06:54 Dose: Not Given Ipratropium [place] (Atrovent Neb 0.5mg/2.5ml) 0.5 mg IH Q2HRT PRN PRN Reason: Shortness of Breath or Wheeze Stop: 02/14/17 21:19 Lactobacillus Rhamnosus (Culturelle) 1 each GT Q12H DC Stop: 02/14/17 21:29 Last Admin: 12/25/16 08:46 Dose: 1 each Loperamide HCl (Imodium 1mg/5ml Suspension) 2 mg GT Q4H PRN PRN Reason: Diarrhea Stop: 02/14/17 21:15 Lorazepam (Ativan) 0.5 mg GT Q6H PRN; Protocol PRN Reason: Anxiety Stop: 02/14/17 21:15 Last Admin: 12/18/16 23:53 Dose: 0.5 mg Midodrine (Proamatine) 10 mg PO TID [facility] Stop: 02/17/17 20:59 Last Admin: 12/25/16 08:46 Dose: 10 mg Miscellaneous (Probiotic Screen) 1 ea MC PRN PRN PRN Reason: PROTOCOL Stop: 02/15/17 15:43 Miscellaneous (Vancomycin Iv Per Pharmacy) 1 ea MC PRN PRN PRN Reason: PROTOCOL Stop: 02/23/17 09:59 Morphine Sulfate (Morphine) 2 mg IVP Q4H PRN PRN Reason: Severe Pain Stop: 02/16/17 10:57 Last Admin: 12/25/16 10:38 Dose: 2 mg Ondansetron HCl (Zofran) 4 mg IV Q8H PRN PRN Reason: Nausea / Vomiting Stop: 02/14/17 21:19 Last Admin: 12/17/16 12:53 Dose: 4 mg Pantoprazole Sodium (Protonix) 40 mg GT Q24H DC Stop: 02/14/17 21:29 Last Admin: 12/24/16 21:22 Dose: 40 mg Sodium Bicarbonate (Sodium Bicarbonate) 650 mg PO BID DC PRN Reason: Protocol Stop: 02/21/17 16:59 Last Admin: 12/24/16 17:35 Dose: 650 mg General: no acute distress, cachectic HEENT: atraumatic, normocephalic, PERRLA, EOMI, moist mucous membrane Neck: supple, no thyromegaly Cardiovascular: S1S2, regular Lungs: clear to auscultation bilaterally, clear to percussion Abdomen: soft, bowel sounds, no tender, no distended Extremities: no cyanosis, no clubbing, no edema Neurological: awake, alert Skin: other (sacral stage 4 ulcer with wound vac.) - Procedures Procedures: Procedures Procedure Code Date ASSISTANCE WITH RESPIRATORY VENTILATION, 24-96 HRS, CPAP [id number] 09/12/16 BLOOD TRANSFUSION SERVICE 01798 12/16/16 EXCISION OF BACK SUBCU/FASCIA, OPEN APPROACH [id number] 12/16/[place] [id number] 04/15/16 IMMUNIZATION ADMIN 07912 04/15/16 INSERT PICC CATH 39940 04/15/16 INSERTION OF INFUSION DEVICE INTO R [facility], [facility] APPROACH [id number] 04/15/16 INTRODUCTION OF SERUM/TOX/VACCINE INTO MUSCLE, [facility] APPROACH [id number] 04/15/16 POS AIRWAY PRESSURE CPAP 14525 09/12/16 REMOVAL OF PRESSURE SORE 37012 12/16/16 TRANSFUSE NONAUT RED BLOOD CELLS IN PERIPH VEIN, [facility] [id number] 12/16/16 Infectious Disease Assmt/Plan - Problem List Patient Problems: All Active Problems MRSA (methicillin resistant Staphylococcus aureus) septicemia (Acute) A41.02 MRSA septicemia (Acute) proteus sepsis (Acute) proteus sepsis (Acute) proteus urinary tract infection (Acute) proteus urinary tract infection (Acute) FEVER WITH ELEVATED WBC, BUN (Acute) Hyperosmolality and hypernatremia (Acute) E87.0 Weakness (Acute) azotemia better (Acute) - Assessment Assessment: 1. Staphylococcus aureus, MRSA sepsis most likey source is sacral wound, clinically osteomyelitis with very elevated ESR and CRP. 2. GNR sepsis. likely source is sacral wound and UTI. 3. UTI , pyelonephritis. 4. Sepsis shock improving. 5. 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 6. DM2 7. UTI: Proteus. 8. 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 9. Diarrhea, C diff ruled out. 10. Hypokalemia. 11. metabolic acidosis. 12. Dementia. Recommendations: Will continue meropenem. Will change daptomycin to vanco as bacteremia has cleared. Continue lomotol. May get LTAC eval. Nutritional Asmnt/Malnutr-PDOC - Dietary Evaluation Malnutrition Findings (Please click <Entered> for more info): Nutritional Asmnt/Malnutrition Start: 12/18/16 14: 50 Text: Status: Complete Freq: Document 12/18/16 14:51 GSUN (Rec: 12/18/16 15:26 GSUN [email or web address]) Nutritional Asmnt/Malnutrition Patient General Information Nutritional Screening Consult Diagnosis Sepsis, sepsis shock, sacral wound stage 4, DM2, diarrhea, CKD vs PER CKD Pertinent Medical Hx/Surgical Hx HTN, bronchitis, penumonia, dementia, constipation, GERD, gastritis, anxiety, psychosis, muscle atrophy, weakness, stiffness, acute renal failure , UTI, osteoporosis Subjective Information 66 year old female from SNF. RD consult for wound. Pt noted with consistent diarrhea. Spoke to Dr. Gonzalez on the phone this AM. Current diet order per Nutren 1.0 at 40ml/hr vs Glucerna at 40ml/hr . RD called Dr. Gonzalez back for clarification at around 11 :30am, waiting for callback. RD endorsed to RN Nabila regarding enteral feeding recommendations. Plan for aggressiveh dyration noted in MD notes, also noted just cover glucose with higher dose of insulin. Observed Diabetisource running at 50ml/ hr during visit. No severe muscle/fat wasting noted. CBW 133.3lb with equipment removed . Current Diet Order/ Nutrition Support Glucerna 40ml/hr vs Nutren 1.0 40ml/hr Pertinent Medications Vitamin C, D5W, Novolog, Novolin, Culturelle, Flagyl, Vancomycin, Morphine, Zofran, Protonix Pertinent Labs 12/16: A1c 7.1H 12/18: sodium 164H, BUN 121H, creatinine 2.4H, glucose 326H Nutritional Hx/Data Height 1.63 m Height (Calculated Centimeters) 162.6 Current Weight (lbs) 60.464 kg Weight (Calculated Kilograms) 60.5 Weight (Calculated Grams) 85959.9 [place] Body Weight 120 Weight Status Approriate GI Symptoms GI Symptoms Diarrhea Difficult in: Chewing Swallowing Usual diet at home [place] Care: Jevity 1.2 at 70ml/hr x 20hrs, prostat Skin Integrity/Comment: Ruslan 11. MD note: sacral wound stage 4 Estimated Nutritional Goals Calories/Kcals/Kg IBW 120lb/54.5kg due to questionable weights obtained Kcals Calculated 1635-1980kcal (30-35kcal/kg, sepsis, skin integrity, bedridden) Protein Calculated 76-98g (1.4-1.8g/kg, renal vs sacral wound stage 4) Fluid: ml Per MD (plan for aggressive hydration) Nutritional Problem 3. Problem Problem Increased kcal andp rot needs realted to Etiology hypermetabolic state, skin integrity aeb Signs/Symptoms: sepsis, sacral wound stage 4 2. Problem Problem Altered nutrition related laboratory values related to Etiology DM aeb Signs/Symptoms: A1c 7.1, glucose >180 1. Problem Problem Altered GI function related to Etiology unknown etiology aeb Signs/Symptoms: consistent diarrhea Intervention/Recommendation Comments 1. Current diet order reads: Nutren 1.0 at 40ml/hr with comment Glucerna ( Diabetisource) at 40ml/hr, providing to meet 59% and 70%, respectively, of lower end of kcal needs. RD called Dr. Gonzalez 11:30am to clarify order, waiting for call back. Current MDs' nutrition related plan of care: aggressive hydration, resolve diarrhea. 2. Recommend Diabetisource at 60ml/hr, providing 1440ml total volume, 1728kcal to meet 100% of lower end of kcal needs, and 86g protein. OR if kept with Nutren 1.0, recommend 1 packet Prosource via tube, 1 packet Arginaid via tube, rate at 70ml/hr, prvoiding 1680ml total volume, 1680kcal, 67g protein from tube feeding. Expected Outcomes/Goals Expected Outcomes/Goals 1. Diarrhea to resolve. 2. Pt to meet 100% of estimated nutritional needs on tube feeding with tolerance.
--- NOTE | 2016-12-25 14:13 | General Progress Note ---
Subjective - Review of Systems Service Date: 12/25/16 Subjective: Sleeping, comfortable Objective - Results Result Diagrams: 12/25/16 06:10 12/25/16 06:10 Recent Labs: Laboratory Last Values WBC 14.0 Th/cmm (4.8-10.8) H 12/25/16 06:10 RBC 2.83 Mil/cmm (3.80-5.20) L 12/25/16 06:10 Hgb 8.4 gm/dL (11.7-16.1) L 12/25/16 06:10 Hct 25.1 % (35.0-45.0) L 12/25/16 06:10 MCV 88.6 fl (81-100) 12/25/16 06:10 MCH 29.7 pg (27.0-31.0) 12/25/16 06:10 MCHC Differential 33.5 pg (28.0-36.0) 12/25/16 06:10 RDW 15.6 % (11.5-20.0) 12/25/16 06:10 Plt Count 302 Th/cmm (150-400) D 12/25/16 06:10 MPV 9.8 fl 12/25/16 06:10 Neutrophils % 74.5 % (40.0-80.0) 12/25/16 06:10 Band Neutrophils % 1 % (0-10) 12/23/16 05:26 Lymphocytes % 16.4 % (20.0-50.0) L 12/25/16 06:10 Monocytes % 4.6 % (2.0-10.0) 12/25/16 06:10 Eosinophils % 4.1 % (0.0-5.0) 12/25/16 06:10 Basophils % 0.4 % (0.0-2.0) 12/25/16 06:10 Neutrophils (Manual) 76 % (40-80) 12/23/16 05:26 Lymphocytes 18 % (20-50) L 12/23/16 05:26 Monocytes 4 % (2-10) 12/22/16 06:12 Eosinophils 5 % (0-5) 12/23/16 05:26 Platelet Estimate ADEQUATE (NORMAL) 12/23/16 05:26 Platelet Morphology NORMAL (NORMAL) 12/18/16 04:46 Polychromasia 1+ 12/17/16 06:36 Anisocytosis 1+ 12/18/16 04:46 RBC Morph Micro Appear ABNORMAL (NORMAL) 12/18/16 04:46 ESR > 140 mm/hr (0-30) H 12/19/16 04:40 PT 10.2 SECONDS (9.5-11.5) 12/21/16 08:30 INR 0.98 (0.5-1.4) 12/21/16 08:30 PTT (Actin FS) 24.7 SECONDS (26.0-38.0) L 12/21/16 08:30 Sodium 138 mEq/L (136-145) 12/25/16 06:10 Potassium 4.4 mEq/L (3.5-5.1) 12/25/16 06:10 Chloride 110 mEq/L (98-107) H 12/25/16 06:10 Carbon Dioxide 24.3 mEq/L (21.0-31.0) 12/25/16 06:10 Anion Gap 8.1 (7.0-16.0) 12/25/16 06:10 BUN 27 mg/dL (7-25) H 12/25/16 06:10 Creatinine 0.6 mg/dL (0.6-1.2) 12/25/16 06:10 Est GFR ( Amer) > 60.0 ml/min (>90) 12/25/16 06:10 Est GFR (Non-Af Amer) > 60.0 ml/min 12/25/16 06:10 BUN/Creatinine Ratio 45.0 12/25/16 06:10 Glucose 129 mg/dL (70-105) H 12/25/16 06:10 POC Glucose 101 MG/DL (70 - 105) 12/25/16 11:08 Hemoglobin A1c % 7.1 % (4.0-6.0) H 12/16/16 18:45 Whole Bld Lactic Acid 1.42 mmol/L (0.60-1.99) 12/20/16 04:40 Calcium 8.4 mg/dL (8.6-10.3) L 12/25/16 06:10 Magnesium 2.0 mg/dL (1.9-2.7) 12/20/16 04:40 Iron 38 ug/dL (27-139) 12/18/16 04:46 TIBC 168 ug/dL (250-450) L 12/18/16 04:46 Iron Saturation 23 % (15-55) 12/18/16 04:46 Unsaturated IBC 130 ug/dL (118-369) 12/18/16 04:46 Total Bilirubin 0.3 mg/dL (0.3-1.0) 12/25/16 06:10 AST 13 U/L (13-39) 12/25/16 06:10 ALT 11 U/L (7-52) 12/25/16 06:10 Alkaline Phosphatase 74 U/L (34-104) 12/25/16 06:10 Ammonia 36 umol/L (16-53) 12/19/16 19:22 C-Reactive Protein 19.8 mg/dL (0.0-0.9) H 12/19/16 04:40 B-Natriuretic Peptide 385.0 pg/mL (5.0-100.0) H 12/17/16 06:36 Total Protein 6.1 gm/dL (6.0-8.3) 12/25/16 06:10 Albumin 2.5 gm/dL (3.7-5.3) L 12/25/16 06:10 Globulin 3.6 gm/dL 12/25/16 06:10 Albumin/Globulin Ratio 0.7 (1.0-1.8) L 12/25/16 06:10 TSH 1.38 uIU/ml (0.34-5.60) 12/17/16 06:36 Urine Source [place] 12/16/16 18:40 Urine Color YELLOW 12/16/16 18:40 Urine Clarity HAZY (CLEAR) 12/16/16 18:40 Urine pH >=9.0 12/16/16 18:40 Ur Specific Bruno 1.010 (1.005-1.030) 12/16/16 18:40 Urine Protein >300 mg/dL (NEGATIVE) H 12/16/16 18:40 Urine Glucose (UA) 250 mg/dL (NEGATIVE) H 12/16/16 18:40 Urine Ketones NEGATIVE mg/dL (NEGATIVE) 12/16/16 18:40 Urine Blood NEGATIVE (NEGATIVE) 12/16/16 18:40 Urine Nitrate POSITIVE (NEGATIVE) H 12/16/16 18:40 Urine Bilirubin NEGATIVE (NEGATIVE) 12/16/16 18:40 Urine Urobilinogen 0.2 E.U./dL (0.2 - 1.0) 12/16/16 18:40 Ur Leukocyte Esterase SMALL (NEGATIVE) H 12/16/16 18:40 Urine RBC 0-2 /hpf (0-5) 12/16/16 18:40 Urine WBC 50-100 /hpf (0-5) H 12/16/16 18:40 Ur Epithelial Cells FEW /lpf (FEW) 12/16/16 18:40 Triple Phos Crystals FEW /hpf (FEW) 12/16/16 18:40 Urine Bacteria MANY /hpf (NONE SEEN) 12/16/16 18:40 Vancomycin Trough 27.2 ug/mL (10-20) H 12/21/16 08:30 Random Vancomycin 20.5 ug/mL (5.0-40.0) 12/22/16 06:12 Blood Type A POSITIVE 12/17/16 09:45 Antibody Screen NEGATIVE 12/17/16 09:45 Crossmatch See Detail 12/17/16 09:45 - Physical Exam Vitals and I&O: Vital Signs Temp 97.9 F 12/25/16 12:00 Pulse 64 12/25/16 14:00 Resp 18 12/25/16 14:00 BP 102/49 12/25/16 12:00 Pulse Ox 97 12/25/16 14:00 Intake & Output 12/24/16 12/25/16 12/25/16 18:59 06:59 18:59 Intake Total 1100 1870 Output Total 3145 Balance 1100 -1275 Weight (lbs) 60.781 kg Intake: Intake, IV Amount 1100 350 D5-0.45NS 1,000 ml @ 100 1000 mls/hr IV .Q10H DC Rx#: [id number] Meropenem 1 gm In Sodium 100 100 Chloride 0.9% 100 ml @ 100 mls/hr IV Q12HR DC Rx#:[id number] Vancomycin HCl 1 gm In 250 Sodium Chloride 0.9% 250 ml @ 165 mls/hr IV Q12H DC Rx#:[id number] Tube Feeding 1320 Other 200 Output: Urine 2650 Stool 400 Other 95 Other: Stool Characteristics Soft Soft Soft Brown Brown Brown Active Medications: Current Medications Acetaminophen (Tylenol 650mg/20.3ml Suspension) 650 mg GT Q6HR PRN PRN Reason: Pain or Fever >101 Stop: 02/14/17 21:15 Last Admin: 12/20/16 03:55 Dose: 650 mg Acetaminophen/Hydrocodone Bitart ([place]ton 5mg/325mg) 1 tab GT Q4H PRN PRN Reason: Pain (Severe) Stop: 02/14/17 21:15 Last Admin: 12/25/16 00:01 Dose: 1 tab Albuterol Sulfate (Albuterol 2.5mg/3ml Neb Ud) 2.5 mg HHN Q2HRT PRN PRN Reason: Shortness of Breath or Wheeze Stop: 02/14/17 21:19 Last Admin: 12/24/16 12:05 Dose: 2.5 mg Albuterol/Ipratropium (Duoneb Neb) 3 ml HHN Q6HRT DC Stop: 02/15/17 00:59 Last Admin: 12/25/16 14:00 Dose: 3 ml Ascorbic Acid (Vitamin C) 500 mg GT DAILY DC Stop: 02/15/17 08:59 Last Admin: 12/25/16 08:45 Dose: 500 mg Bisacodyl (Dulcolax 10 Mg Supp) 10 mg RC DAILY PRN PRN Reason: IF MOM INEFFECTIVE Stop: 02/14/17 21:15 Clonidine HCl (Catapres) 0.1 mg PO Q6H PRN PRN Reason: SBP GREATER THAN 160 Stop: 02/14/17 21:19 Diphenoxylate HCl/Atropine (Lomotil) 2 tab PO TID PRN PRN Reason: Diarrhea Stop: 02/19/17 12:01 Guaifenesin (Robitussin) 200 mg PO Q4HR PRN PRN Reason: Cough or Congestion Stop: 02/14/17 21:19 Meropenem 1 gm/ Sodium (Chloride) 100 mls @ 100 mls/hr IV Q12HR [facility] Stop: 02/16/17 12:59 Last Admin: 12/25/16 08:45 Dose: 100 mls/hr Vancomycin HCl 1 gm/ Sodium (Chloride) 250 mls @ 165 mls/hr IV Q12H DC Stop: 02/22/17 21:59 Last Admin: 12/25/16 10:01 Dose: 165 mls/hr Dextrose/Sodium Chloride (D5-0.45ns) 1,000 mls @ 70 mls/hr IV .[id number] [facility] Stop: 02/20/17 09:54 Insulin Aspart (Novolog Insulin Sliding Scale) 0 units SUBQ ACHS DC PRN Reason: Protocol Stop: 02/15/17 20:59 Last Admin: 12/25/16 11:46 Dose: Not Given Insulin Human NPH (Novolin N) 20 units SUBQ BIDAC DC PRN Reason: Protocol Stop: 02/16/17 07:29 Last Admin: 12/25/16 06:54 Dose: Not Given Ipratropium [place] (Atrovent Neb 0.5mg/2.5ml) 0.5 mg IH Q2HRT PRN PRN Reason: Shortness of Breath or Wheeze Stop: 02/14/17 21:19 Lactobacillus Rhamnosus (Culturelle) 1 each GT Q12H DC Stop: 02/14/17 21:29 Last Admin: 12/25/16 08:46 Dose: 1 each Loperamide HCl (Imodium 1mg/5ml Suspension) 2 mg GT Q4H PRN PRN Reason: Diarrhea Stop: 02/14/17 21:15 Lorazepam (Ativan) 0.5 mg GT Q6H PRN; Protocol PRN Reason: Anxiety Stop: 02/14/17 21:15 Last Admin: 12/18/16 23:53 Dose: 0.5 mg Midodrine (Proamatine) 10 mg PO TID [facility] Stop: 02/17/17 20:59 Last Admin: 12/25/16 08:46 Dose: 10 mg Miscellaneous (Probiotic Screen) 1 ea MC PRN PRN PRN Reason: PROTOCOL Stop: 02/15/17 15:43 Miscellaneous (Vancomycin Iv Per Pharmacy) 1 ea MC PRN PRN PRN Reason: PROTOCOL Stop: 02/23/17 09:59 Morphine Sulfate (Morphine) 2 mg IVP Q4H PRN PRN Reason: Severe Pain Stop: 02/16/17 10:57 Last Admin: 12/25/16 10:38 Dose: 2 mg Ondansetron HCl (Zofran) 4 mg IV Q8H PRN PRN Reason: Nausea / Vomiting Stop: 02/14/17 21:19 Last Admin: 12/17/16 12:53 Dose: 4 mg Pantoprazole Sodium (Protonix) 40 mg GT Q24H DC Stop: 02/14/17 21:29 Last Admin: 12/24/16 21:22 Dose: 40 mg Sodium Bicarbonate (Sodium Bicarbonate) 650 mg PO BID DC PRN Reason: Protocol Stop: 02/21/17 16:59 Last Admin: 12/24/16 17:35 Dose: 650 mg General: Alert, No acute distress HEENT: PERRLA, Mucous membr. moist/pink Neck: Supple Cardiovascular: Regular rate, Normal S1, Normal S2 Lungs: Clear to auscultation, Other (adeuqate air exchage) Abdomen: Bowel sounds (hyperactive), Soft, Distended (mildly) Extremities: no Edema (none) Neurological: Sensation intact Skin: no Rash Psych/Mental Status: Mood NL - Procedures Procedures: Procedures Procedure Code Date ASSISTANCE WITH RESPIRATORY VENTILATION, 24-96 HRS, CPAP [id number] 09/12/16 BLOOD TRANSFUSION SERVICE 16289 12/16/16 EXCISION OF BACK SUBCU/FASCIA, OPEN APPROACH [id number] 12/16/16 [place] [address] 04/15/16 IMMUNIZATION ADMIN 60466 04/15/16 INSERT PICC CATH 12977 04/15/16 INSERTION OF INFUSION DEVICE INTO R ATRIUM, PERC APPROACH [id number] 04/15/16 INTRODUCTION OF SERUM/TOX/VACCINE INTO MUSCLE, PERC APPROACH [id number] 04/15/16 POS AIRWAY PRESSURE CPAP 43152 09/12/16 REMOVAL OF PRESSURE SORE 29068 12/16/16 TRANSFUSE NONAUT RED BLOOD CELLS IN PERIPH VEIN, PERC [id number] 12/16/16 Assessment/Plan - Problem List Patient Problems: All Active Problems MRSA (methicillin resistant Staphylococcus aureus) septicemia (Acute) A41.02 MRSA septicemia (Acute) proteus sepsis (Acute) proteus sepsis (Acute) proteus urinary tract infection (Acute) proteus urinary tract infection (Acute) FEVER WITH ELEVATED WBC, BUN (Acute) Hyperosmolality and hypernatremia (Acute) E87.0 Weakness (Acute) azotemia better (Acute) - Assessment Assessment: Prerenal azotemia Hypernatremia secondary to dehydration MRSA septicemia Hyperkalemia secondary to replacement Anemia of chronic disease Non-gap metabolic acidosis Proteus mirabilis complicated UTI - Plan Plan: Lab - Result Diagrams 12/22/16 06:12 12/22/16 08:20 Current Medications Acetaminophen (Tylenol 650mg/20.3ml Suspension) 650 mg GT Q6HR PRN PRN Reason: Pain or Fever >101 Stop: 02/14/17 21:15 Last Admin: 12/20/16 03:55 Dose: 650 mg Acetaminophen/Hydrocodone Bitart ([place] 5mg/325mg) 1 tab GT Q4H PRN PRN Reason: Pain (Severe) Stop: 02/14/17 21:15 Last Admin: 12/22/16 06:32 Dose: 1 tab Albuterol Sulfate (Albuterol 2.5mg/3ml Neb Ud) 2.5 mg HHN Q2HRT PRN PRN Reason: Shortness of Breath or Wheeze Stop: 02/14/17 21:19 Albuterol/Ipratropium (Duoneb Neb) 3 ml HHN Q6HRT DC Stop: 02/15/17 00:59 Last Admin: 12/22/16 12:18 Dose: 3 ml Ascorbic Acid (Vitamin C) 500 mg GT DAILY [facility] Stop: 02/15/17 08:59 Last Admin: 12/22/16 09:16 Dose: 500 mg Bisacodyl (Dulcolax 10 Mg Supp) 10 mg RC DAILY PRN PRN Reason: IF MOM INEFFECTIVE Stop: 02/14/17 21:15 Clonidine HCl (Catapres) 0.1 mg PO Q6H PRN PRN Reason: SBP GREATER THAN 160 Stop: 02/14/17 21:19 Diphenoxylate HCl/Atropine (Lomotil) 2 tab PO TID PRN PRN Reason: Diarrhea Stop: 02/19/17 12:01 Guaifenesin (Robitussin) 200 mg PO Q4HR PRN PRN Reason: Cough or Congestion Stop: 02/14/17 21:19 Meropenem 1 gm/ Sodium (Chloride) 100 mls @ 100 mls/hr IV Q12HR [facility] Stop: 02/16/17 12:59 Last Admin: 12/22/16 09:12 Dose: 100 mls/hr Daptomycin 360 mg/ Sodium (Chloride) 100 mls @ 100 mls/hr IV Q24H [facility] Stop: 02/19/17 11:14 Last Admin: 12/22/16 11:44 Dose: 100 mls/hr Dextrose/Sodium Chloride (D5-0.45ns) 1,000 mls @ 100 mls/hr IV .Q10H DC Stop: 02/20/17 09:54 Last Admin: 12/22/16 11:45 Dose: 100 mls/hr Insulin Aspart (Novolog Insulin Sliding Scale) 0 units SUBQ ACHS DC PRN Reason: Protocol Stop: 02/15/17 20:59 Last Admin: 12/21/16 22:33 Dose: Not Given Insulin Human NPH (Novolin N) 20 units SUBQ BIDAC DC PRN Reason: Protocol Stop: 02/16/17 07:29 Last Admin: 12/22/16 06:32 Dose: 20 units Ipratropium [place] (Atrovent Neb 0.5mg/2.5ml) 0.5 mg IH Q2HRT PRN PRN Reason: Shortness of Breath or Wheeze Stop: 02/14/17 21:19 Lactobacillus Rhamnosus (Culturelle) 1 each GT Q12H DC Stop: 02/14/17 21:29 Last Admin: 12/22/16 09:16 Dose: 1 each Loperamide HCl (Imodium 1mg/5ml Suspension) 2 mg GT Q4H PRN PRN Reason: Diarrhea Stop: 02/14/17 21:15 Lorazepam (Ativan) 0.5 mg GT Q6H PRN; Protocol PRN Reason: Anxiety Stop: 02/14/17 21:15 Last Admin: 12/18/16 23:53 Dose: 0.5 mg Midodrine (Proamatine) 10 mg PO TID [facility] Stop: 02/17/17 20:59 Last Admin: 12/22/16 13:55 Dose: 10 mg Miscellaneous (Probiotic Screen) 1 ea MC PRN PRN PRN Reason: PROTOCOL Stop: 02/15/17 15:43 Morphine Sulfate (Morphine) 2 mg IVP Q4H PRN PRN Reason: Severe Pain Stop: 02/16/17 10:57 Last Admin: 12/21/16 18:36 Dose: 2 mg Ondansetron HCl (Zofran) 4 mg IV Q8H PRN PRN Reason: Nausea / Vomiting Stop: 02/14/17 21:19 Last Admin: 12/17/16 12:53 Dose: 4 mg Pantoprazole Sodium (Protonix) 40 mg GT Q24H DC Stop: 02/14/17 21:29 Last Admin: 12/21/16 22:28 Dose: 40 mg Potassium Chloride (Potassium Chloride Elixir) 40 meq GT BID DC Stop: 12/23/16 09:59 Last Admin: 12/22/16 09:18 Dose: Not Given Kidney function improving with the BUN/creatinine of 27/0.7 Maintain IV hydration Continue feedings Follow-up electrolytes and CBC Add sodium bicarbonate Lab - Result Diagrams 12/25/16 06:10 12/25/16 06:10 Nutritional Asmnt/Malnutr-PDOC - Dietary Evaluation Malnutrition Findings (Please click <Entered> for more info): Nutritional Asmnt/Malnutrition Start: 12/18/16 14: 50 Text: Status: Complete Freq: Document 12/18/16 14:51 GSUN (Rec: 12/18/16 15:26 GSUN [email or web address]) Nutritional Asmnt/Malnutrition Patient General Information Nutritional Screening Consult Diagnosis Sepsis, sepsis shock, sacral wound stage 4, DM2, diarrhea, CKD vs PER CKD Pertinent Medical Hx/Surgical Hx HTN, bronchitis, penumonia, dementia, constipation, GERD, gastritis, anxiety, psychosis, muscle atrophy, weakness, stiffness, acute renal failure , UTI, osteoporosis Subjective Information 66 year old female from SNF. RD consult for wound. Pt noted with consistent diarrhea. Spoke to Dr. Gonzalez on the phone this AM. Current diet order per Nutren 1.0 at 40ml/hr vs Glucerna at 40ml/hr . RD called Dr. Gonzalez back for clarification at around 11 :30am, waiting for callback. RD endorsed to RN Nabila regarding enteral feeding recommendations. Plan for aggressiveh dyration noted in MD notes, also noted just cover glucose with higher dose of insulin. Observed Diabetisource running at 50ml/ hr during visit. No severe muscle/fat wasting noted. CBW 133.3lb with equipment removed . Current Diet Order/ Nutrition Support Glucerna 40ml/hr vs Nutren 1.0 40ml/hr Pertinent Medications Vitamin C, D5W, Novolog, Novolin, Culturelle, Flagyl, Vancomycin, Morphine, Zofran, Protonix Pertinent Labs 12/16: A1c 7.1H 12/18: sodium 164H, BUN 121H, creatinine 2.4H, glucose 326H Nutritional Hx/Data Height 1.63 m Height (Calculated Centimeters) 162.6 Current Weight (lbs) 60.464 kg Weight (Calculated Kilograms) 60.5 Weight (Calculated Grams) 76249.9 [place] Body Weight 120 Weight Status Approriate GI Symptoms GI Symptoms Diarrhea Difficult in: Chewing Swallowing Usual diet at home [place] Care: Jevity 1.2 at 70ml/hr x 20hrs, prostat Skin Integrity/Comment: Ruslan 11. MD note: sacral wound stage 4 Estimated Nutritional Goals Calories/Kcals/Kg IBW 120lb/54.5kg due to questionable weights obtained Kcals Calculated 1635-1980kcal (30-35kcal/kg, sepsis, skin integrity, bedridden) Protein Calculated 76-98g (1.4-1.8g/kg, renal vs sacral wound stage 4) Fluid: ml Per MD (plan for aggressive hydration) Nutritional Problem 3. Problem Problem Increased kcal andp rot needs realted to Etiology hypermetabolic state, skin integrity aeb Signs/Symptoms: sepsis, sacral wound stage 4 2. Problem Problem Altered nutrition related laboratory values related to Etiology DM aeb Signs/Symptoms: A1c 7.1, glucose >180 1. Problem Problem Altered GI function related to Etiology unknown etiology aeb Signs/Symptoms: consistent diarrhea Intervention/Recommendation Comments 1. Current diet order reads: Nutren 1.0 at 40ml/hr with comment Glucerna ( Diabetisource) at 40ml/hr, providing to meet 59% and 70%, respectively, of lower end of kcal needs. RD called Dr. Gonzalez 11:30am to clarify order, waiting for call back. Current MDs' nutrition related plan of care: aggressive hydration, resolve diarrhea. 2. Recommend Diabetisource at 60ml/hr, providing 1440ml total volume, 1728kcal to meet 100% of lower end of kcal needs, and 86g protein. OR if kept with Nutren 1.0, recommend 1 packet Prosource via tube, 1 packet Arginaid via tube, rate at 70ml/hr, prvoiding 1680ml total volume, 1680kcal, 67g protein from tube feeding. Expected Outcomes/Goals Expected Outcomes/Goals 1. Diarrhea to resolve. 2. Pt to meet 100% of estimated nutritional needs on tube feeding with tolerance.
[2016-12-25] MEDS: Pantoprazole 40 mg/Packet GT SCH (21:16)
[2016-12-26] MEDS: Albuterol/Ipratropium Neb 3 ML AERS HHN SCH ×4 (00:40→20:07)
[2016-12-26] MEDS: Hydrocodone/APAP 5mg/325mg Tab GT PRN (04:27)
[2016-12-26] MEDS: INSULIN ASPART SLIDING SCALE 100 UNITS/ML UNIT SUBQ SCH ×3 (06:49→16:34)
[2016-12-26] MEDS: INSULIN HUMAN ISOPHANE (NPH) 100 UNITS/ML SUBQ SCH ×2 (06:49→16:35)
[2016-12-26 07:52] LABS: ALB/GLOB RATIO 0.6 (1.0-1.8); ALKALINE PHOSPHATASE 72 U/L (34-104); ANION GAP 8.6 (7.0-16.0); BILIRUBIN,TOTAL 0.2 mg/dL (0.3-1.0); BUN - UREA NITROGEN 26 mg/dL (7-25); CALCIUM SERUM 8.2 mg/dL (8.6-10.3); CARBON DIOXIDE 22.9 mEq/L (21.0-31.0); CHLORIDE 105 mEq/L (98-107); CREATININE - SERUM 0.5 mg/dL (0.6-1.2); GLUCOSE 119 mg/dL (70-105); POTASSIUM SERUM 4.5 mEq/L (3.5-5.1); SGOT 13 U/L (13-39); SGPT/ALT 10 U/L (7-52); SODIUM SERUM 132 mEq/L (136-145)
[2016-12-26 08:26] LABS: % BASOPHILS 0.3 % (0.0-2.0); % LYMPHOCYTES 17.3 % (20.0-50.0); % MONOCYTES 4.1 % (2.0-10.0); % NEUTROPHILS 74.3 % (40.0-80.0); MEAN CELL VOLUME 88.5 fl (81-100); MEAN CORPUSCULAR HEMOGLOBIN 29.5 pg (27.0-31.0); MEAN CORPUSCULAR HGB CONC 33.3 pg (28.0-36.0); MEAN PLATELET VOLUME 10.3 fl; NEUTROPHILE ABSOLUTE 9.4 Th/cmm (1.8-8.0); PLATELET COUNT 305 Th/cmm (150-400); RED BLOOD COUNT 2.63 Mil/cmm (3.80-5.20); RED CELL DISTRIBUTION WIDTH 15.8 % (11.5-20.0)
[2016-12-26 08:31] LABS: WHITE BLOOD COUNT 12.6 Th/cmm (4.8-10.8)
[2016-12-26 08:32] LABS: HEMATOCRIT 23.3 % (35.0-45.0); HEMOGLOBIN 7.8 gm/dL (11.7-16.1)
[2016-12-26] MEDS: Meropenem 1 GM in Sodium Chloride 0.9% 100 ML IV SCH ×2 (08:36→21:20)
[2016-12-26] MEDS: Ascorbic Acid 500 mg/5 mL UDC GT SCH (08:37)
[2016-12-26] MEDS: Lactobacillus Rhamnosus 10 Billion CFU Capsule GT SCH ×2 (08:37→21:20)
[2016-12-26] MEDS: Multivitamin w/ Minerals Tab GT SCH (08:37)
[2016-12-26] MEDS: Venelex 60gm Tube TP SCH (09:00)
--- NOTE | 2016-12-26 10:40 | Pathology Report ---
- Pathology SPECIMEN #: [id number] PHYSICIAN: Delfino Acuña D.O. SURGEON: Dr. Eugene Arroyo SPECIMEN COLLECTION DATE: 12/21/2016 SPECIMEN DESCRIPTION(S): Debridement sacral ulcer GROSS DESCRIPTION: Received in formalin are multiple irregular white mcgraw tissue fragments ranging from 0.8-5.2 cm in greatest dimension. Sectioning shows ulcerated necrotic appearing skin and soft tissue. Layer Off sections are submitted in one cassette. MICROSCOPIC DESCRIPTION: The histologic sections show ulcerated necrotic skin and soft tissue with suppurative inflammation present consisting of large collections of neutrophils with a very necrotic and degenerated background. DIAGNOSIS: Ulcerated necrotic tissue consistent with debridement. Arnie Jeffrey Tony, M.D. 12/26/611883
--- NOTE | 2016-12-26 14:27 | Internal Medicine Prog Note ---
Internal Medicine Subjective - Subjective Service Date: 12/26/16 (per nursing staff patient was diaphoretic, lethargic, labored breathing, patient is now placed on bipap) Patient is:: awake, non-verbal, non-interactive, arousable, in bed, denies any new complaints Patient Complaints of:: congestion, cough, bloated, SOB Per staff patient has:: other (labored breathing) Internal Medicine Objective - Results Result Diagrams: 12/26/16 06:16 12/26/16 06:16 Recent Labs: Laboratory Last Values WBC 12.6 Th/cmm (4.8-10.8) H 12/26/16 06:16 RBC 2.63 Mil/cmm (3.80-5.20) L 12/26/16 06:16 Hgb 7.8 gm/dL (11.7-16.1) L* 12/26/16 06:16 Hct 23.3 % (35.0-45.0) L* 12/26/16 06:16 MCV 88.5 fl (81-100) 12/26/16 06:16 MCH 29.5 pg (27.0-31.0) 12/26/16 06:16 MCHC Differential 33.3 pg (28.0-36.0) 12/26/16 06:16 RDW 15.8 % (11.5-20.0) 12/26/16 06:16 Plt Count 305 Th/cmm (150-400) 12/26/16 06:16 MPV 10.3 fl 12/26/16 06:16 Neutrophils % 74.3 % (40.0-80.0) 12/26/16 06:16 Band Neutrophils % 1 % (0-10) 12/23/16 05:26 Lymphocytes % 17.3 % (20.0-50.0) L 12/26/16 06:16 Monocytes % 4.1 % (2.0-10.0) 12/26/16 06:16 Eosinophils % 4.0 % (0.0-5.0) 12/26/16 06:16 Basophils % 0.3 % (0.0-2.0) 12/26/16 06:16 Neutrophils (Manual) 76 % (40-80) 12/23/16 05:26 Lymphocytes 18 % (20-50) L 12/23/16 05:26 Monocytes 4 % (2-10) 12/22/16 06:12 Eosinophils 5 % (0-5) 12/23/16 05:26 Platelet Estimate ADEQUATE (NORMAL) 12/23/16 05:26 Platelet Morphology NORMAL (NORMAL) 12/18/16 04:46 Polychromasia 1+ 12/17/16 06:36 Anisocytosis 1+ 12/18/16 04:46 RBC Morph Micro Appear ABNORMAL (NORMAL) 12/18/16 04:46 ESR > 140 mm/hr (0-30) H 12/19/16 04:40 PT 10.2 SECONDS (9.5-11.5) 12/21/16 08:30 INR 0.98 (0.5-1.4) 12/21/16 08:30 PTT (Actin FS) 24.7 SECONDS (26.0-38.0) L 12/21/16 08:30 Sodium 132 mEq/L (136-145) L 12/26/16 06:16 Potassium 4.5 mEq/L (3.5-5.1) 12/26/16 06:16 Chloride 105 mEq/L (98-107) 12/26/16 06:16 Carbon Dioxide 22.9 mEq/L (21.0-31.0) 12/26/16 06:16 Anion Gap 8.6 (7.0-16.0) 12/26/16 06:16 BUN 26 mg/dL (7-25) H 12/26/16 06:16 Creatinine 0.5 mg/dL (0.6-1.2) L 12/26/16 06:16 Est GFR ( Amer) > 60.0 ml/min (>90) 12/26/16 06:16 Est GFR (Non-Af Amer) > 60.0 ml/min 12/26/16 06:16 BUN/Creatinine Ratio 52.0 12/26/16 06:16 Glucose 119 mg/dL (70-105) H 12/26/16 06:16 POC Glucose 128 MG/DL (70 - 105) H 12/26/16 11:18 Hemoglobin A1c % 7.1 % (4.0-6.0) H 12/16/16 18:45 Whole Bld Lactic Acid 1.42 mmol/L (0.60-1.99) 12/20/16 04:40 Calcium 8.2 mg/dL (8.6-10.3) L 12/26/16 06:16 Magnesium 2.0 mg/dL (1.9-2.7) 12/20/16 04:40 Iron 38 ug/dL (27-139) 12/18/16 04:46 TIBC 168 ug/dL (250-450) L 12/18/16 04:46 Iron Saturation 23 % (15-55) 12/18/16 04:46 Unsaturated IBC 130 ug/dL (118-369) 12/18/16 04:46 Total Bilirubin 0.2 mg/dL (0.3-1.0) L 12/26/16 06:16 AST 13 U/L (13-39) 12/26/16 06:16 ALT 10 U/L (7-52) 12/26/16 06:16 Alkaline Phosphatase 72 U/L (34-104) 12/26/16 06:16 Ammonia 36 umol/L (16-53) 12/19/16 19:22 C-Reactive Protein 19.8 mg/dL (0.0-0.9) H 12/19/16 04:40 B-Natriuretic Peptide 385.0 pg/mL (5.0-100.0) H 12/17/16 06:36 Total Protein 6.2 gm/dL (6.0-8.3) 12/26/16 06:16 Albumin 2.4 gm/dL (3.7-5.3) L 12/26/16 06:16 Globulin 3.8 gm/dL 12/26/16 06:16 Albumin/Globulin Ratio 0.6 (1.0-1.8) L 12/26/16 06:16 TSH 1.38 uIU/ml (0.34-5.60) 12/17/16 06:36 Urine Source [place] 12/16/16 18:40 Urine Color YELLOW 12/16/16 18:40 Urine Clarity HAZY (CLEAR) 12/16/16 18:40 Urine pH >=9.0 12/16/16 18:40 Ur Specific [place] 1.010 (1.005-1.030) 12/16/16 18:40 Urine Protein >300 mg/dL (NEGATIVE) H 12/16/16 18:40 Urine Glucose (UA) 250 mg/dL (NEGATIVE) H 12/16/16 18:40 Urine Ketones NEGATIVE mg/dL (NEGATIVE) 12/16/16 18:40 Urine Blood NEGATIVE (NEGATIVE) 12/16/16 18:40 Urine Nitrate POSITIVE (NEGATIVE) H 12/16/16 18:40 Urine Bilirubin NEGATIVE (NEGATIVE) 12/16/16 18:40 Urine Urobilinogen 0.2 E.U./dL (0.2 - 1.0) 12/16/16 18:40 Ur Leukocyte Esterase SMALL (NEGATIVE) H 12/16/16 18:40 Urine RBC 0-2 /hpf (0-5) 12/16/16 18:40 Urine WBC 50-100 /hpf (0-5) H 12/16/16 18:40 Ur Epithelial Cells FEW /lpf (FEW) 12/16/16 18:40 Triple Phos Crystals FEW /hpf (FEW) 12/16/16 18:40 Urine Bacteria MANY /hpf (NONE SEEN) 12/16/16 18:40 Vancomycin Trough 31.8 ug/mL (10-20) H 12/26/16 09:00 Random Vancomycin 20.5 ug/mL (5.0-40.0) 12/22/16 06:12 Blood Type A POSITIVE 12/17/16 09:45 Antibody Screen NEGATIVE 12/17/16 09:45 Crossmatch See Detail 12/17/16 09:45 - Physical Exam Vitals and I&O: Vital Signs Temp 96.8 F 12/26/16 11:55 Pulse 97 12/26/16 11:55 Resp 17 12/26/16 14:00 BP 118/59 12/26/16 11:55 Pulse Ox 98 12/26/16 14:00 Intake & Output 12/25/16 12/26/16 12/26/16 18:59 06:59 18:59 Intake Total 350 1370 Output Total 200 Balance 350 1170 Weight (lbs) 134 lb Intake: Intake, IV Amount 350 350 Meropenem 1 gm In Sodium 100 100 Chloride 0.9% 100 ml @ 100 mls/hr IV Q12HR DC Rx#:[id number] Vancomycin HCl 1 gm In 250 250 Sodium Chloride 0.9% 250 ml @ 165 mls/hr IV Q12H DC Rx#:[id number] Tube Feeding 1020 Output: Stool 200 Other: Stool Characteristics Soft Liquid Liquid Brown Mucoid Mucoid Brown Brown Active Medications: Current Medications Acetaminophen (Tylenol 650mg/20.3ml Suspension) 650 mg GT Q6HR PRN PRN Reason: Pain or Fever >101 Stop: 02/14/17 21:15 Last Admin: 12/20/16 03:55 Dose: 650 mg Acetaminophen/Hydrocodone Bitart (Hume 5mg/325mg) 1 tab GT Q4H PRN PRN Reason: Pain (Severe) Stop: 02/14/17 21:15 Last Admin: 12/26/16 04:27 Dose: 1 tab Albuterol Sulfate (Albuterol 2.5mg/3ml Neb Ud) 2.5 mg HHN Q2HRT PRN PRN Reason: Shortness of Breath or Wheeze Stop: 02/14/17 21:19 Last Admin: 12/24/16 12:05 Dose: 2.5 mg Albuterol/Ipratropium (Duoneb Neb) 3 ml HHN Q6HRT DC Stop: 02/15/17 00:59 Last Admin: 12/26/16 07:13 Dose: 3 ml Ascorbic Acid (Vitamin C) 500 mg GT DAILY DC Stop: 02/15/17 08:59 Last Admin: 12/26/16 08:37 Dose: 500 mg Bisacodyl (Dulcolax 10 Mg Supp) 10 mg RC DAILY PRN PRN Reason: IF MOM INEFFECTIVE Stop: 02/14/17 21:15 Clonidine HCl (Catapres) 0.1 mg PO Q6H PRN PRN Reason: SBP GREATER THAN 160 Stop: 02/14/17 21:19 Diphenoxylate HCl/Atropine (Lomotil) 2 tab PO TID PRN PRN Reason: Diarrhea Stop: 02/19/17 12:01 Guaifenesin (Robitussin) 200 mg PO Q4HR PRN PRN Reason: Cough or Congestion Stop: 02/14/17 21:19 Meropenem 1 gm/ Sodium (Chloride) 100 mls @ 100 mls/hr IV Q12HR DC Stop: 02/16/17 12:59 Last Admin: 12/26/16 08:36 Dose: 100 mls/hr Dextrose/Sodium Chloride (D5-0.45ns) 1,000 mls @ 70 mls/hr IV .[id number] [facility] Stop: 02/20/17 09:54 Last Admin: 12/25/16 17:41 Dose: 70 mls/hr Vancomycin HCl 0.75 gm/ Sodium (Chloride) 250 mls @ 165 mls/hr IV Q12H [facility] Stop: 02/25/17 19:59 Insulin Aspart (Novolog Insulin Sliding Scale) 0 units SUBQ ACHS DC PRN Reason: Protocol Stop: 02/15/17 20:59 Last Admin: 12/26/16 11:51 Dose: Not Given Insulin Human NPH (Novolin N) 20 units SUBQ BIDAC DC PRN Reason: Protocol Stop: 02/16/17 07:29 Last Admin: 12/26/16 06:49 Dose: 20 units Ipratropium Roby (Atrovent Neb 0.5mg/2.5ml) 0.5 mg IH Q2HRT PRN PRN Reason: Shortness of Breath or Wheeze Stop: 02/14/17 21:19 Lactobacillus Rhamnosus (Culturelle) 1 each GT Q12H DC Stop: 02/14/17 21:29 Last Admin: 12/26/16 08:37 Dose: 1 each Loperamide HCl (Imodium 1mg/5ml Suspension) 2 mg GT Q4H PRN PRN Reason: Diarrhea Stop: 02/14/17 21:15 Lorazepam (Ativan) 0.5 mg GT Q6H PRN; Protocol PRN Reason: Anxiety Stop: 02/14/17 21:15 Last Admin: 12/18/16 23:53 Dose: 0.5 mg Midodrine (Proamatine) 10 mg PO TID [facility] Stop: 02/17/17 20:59 Last Admin: 12/26/16 08:37 Dose: 10 mg Miscellaneous (Probiotic Screen) 1 ea MC PRN PRN PRN Reason: PROTOCOL Stop: 02/15/17 15:43 Miscellaneous (Vancomycin Iv Per Pharmacy) 1 ea MC PRN PRN PRN Reason: PROTOCOL Stop: 02/23/17 09:59 Ondansetron HCl (Zofran) 4 mg IV Q8H PRN PRN Reason: Nausea / Vomiting Stop: 02/14/17 21:19 Last Admin: 12/17/16 12:53 Dose: 4 mg Pantoprazole Sodium (Protonix) 40 mg GT Q24H DC Stop: 02/14/17 21:29 Last Admin: 12/25/16 21:16 Dose: 40 mg Sodium Bicarbonate (Sodium Bicarbonate) 650 mg PO BID DC PRN Reason: Protocol Stop: 02/21/17 16:59 Last Admin: 12/26/16 08:37 Dose: 650 mg General: lethargic, demented, disheveled, bilateral temporal wasting, cachectic , appears older HEENT: NC/AT Neck: Supple, No LAD Lungs: congested, rales, ronchi Cardiovascular: RRR, Normal S1, Normal S2, without murmur Abdomen: soft, non-tender, globular, +GT, positive bowel sound Extremities: excoriation, contracture, ulcers stage 4 Neurological: no change, lethargic, disorganized, unable to follow command, bedbound, spastic - Procedures Procedures: Procedures Procedure Code Date ASSISTANCE WITH RESPIRATORY VENTILATION, 24-96 HRS, CPAP [id number] 09/12/16 BLOOD TRANSFUSION SERVICE 94138 12/16/16 EXCISION OF BACK SUBCU/FASCIA, OPEN APPROACH [id number] 12/16/16 [place] [address] 04/15/16 IMMUNIZATION ADMIN 02134 04/15/16 INSERT PICC CATH [id number] 04/15/16 INSERTION OF INFUSION DEVICE INTO R [facility], PERC APPROACH [id number] 04/15/16 INTRODUCTION OF SERUM/TOX/VACCINE INTO MUSCLE, PERC APPROACH [id number] 04/15/16 POS AIRWAY PRESSURE CPAP 25033 09/12/16 REMOVAL OF PRESSURE SORE 76225 12/16/16 TRANSFUSE NONAUT RED BLOOD CELLS IN PERIPH VEIN, PERC [id number] 12/16/16 Internal Medicine Assmt/Plan - Assessment Assessment: hypokalemia severe anemia acute renal failure severe sepsis pnm fever sad sp peg fuctional quad bedridden anemia Urine cx + Proteus Mirabilis MRSA blood leukocytosis lactic acidosis dmooc Ulcerated necrotic tissue coccyx - Plan Plan: BIPAP pulmo consult supplemental oxygen bronchodilators as needed ivf continue empiric iv abx montor glucose f/u labs in am wound vac Nutritional Asmnt/Malnutr-PDOC - Dietary Evaluation Malnutrition Findings (Please click <Entered> for more info): Nutritional Asmnt/Malnutrition Start: 12/18/16 14: 50 Text: Status: Complete Freq: Document 12/18/16 14:51 GSUN (Rec: 12/18/16 15:26 GSUN [email or web address]) Nutritional Asmnt/Malnutrition Patient General Information Nutritional Screening Consult Diagnosis Sepsis, sepsis shock, sacral wound stage 4, DM2, diarrhea, CKD vs PER CKD Pertinent Medical Hx/Surgical Hx HTN, bronchitis, penumonia, dementia, constipation, GERD, gastritis, anxiety, psychosis, muscle atrophy, weakness, stiffness, acute renal failure , UTI, osteoporosis Subjective Information 66 year old female from SNF. RD consult for wound. Pt noted with consistent diarrhea. Spoke to Dr. Gonzalez on the phone this AM. Current diet order per Nutren 1.0 at 40ml/hr vs Glucerna at 40ml/hr . RD called Dr. Gonzalez back for clarification at around 11 :30am, waiting for callback. RD endorsed to RN Nabila regarding enteral feeding recommendations. Plan for aggressiveh dyration noted in MD notes, also noted just cover glucose with higher dose of insulin. Observed Diabetisource running at 50ml/ hr during visit. No severe muscle/fat wasting noted. CBW 133.3lb with equipment removed . Current Diet Order/ Nutrition Support Glucerna 40ml/hr vs Nutren 1.0 40ml/hr Pertinent Medications Vitamin C, D5W, Novolog, Novolin, Culturelle, Flagyl, Vancomycin, Morphine, Zofran, Protonix Pertinent Labs 12/16: A1c 7.1H 12/18: sodium 164H, BUN 121H, creatinine 2.4H, glucose 326H Nutritional Hx/Data Height 5 ft 4 in Height (Calculated Centimeters) 162.6 Current Weight (lbs) 133 lb 4.8 oz Weight (Calculated Kilograms) 60.5 Weight (Calculated Grams) 46820.9 [place] Body Weight 120 Weight Status Approriate GI Symptoms GI Symptoms Diarrhea Difficult in: Chewing Swallowing Usual diet at home [facility]: Jevity 1.2 at 70ml/hr x 20hrs, prostat Skin Integrity/Comment: Ruslan Lim MD note: sacral wound stage 4 Estimated Nutritional Goals Calories/Kcals/Kg IBW 120lb/54.5kg due to questionable weights obtained Kcals Calculated 1635-1980kcal (30-35kcal/kg, sepsis, skin integrity, bedridden) Protein Calculated 76-98g (1.4-1.8g/kg, renal vs sacral wound stage 4) Fluid: ml Per MD (plan for aggressive hydration) Nutritional Problem 3. Problem Problem Increased kcal andp rot needs realted to Etiology hypermetabolic state, skin integrity aeb Signs/Symptoms: sepsis, sacral wound stage 4 2. Problem Problem Altered nutrition related laboratory values related to Etiology DM aeb Signs/Symptoms: A1c 7.1, glucose >180 1. Problem Problem Altered GI function related to Etiology unknown etiology aeb Signs/Symptoms: consistent diarrhea Intervention/Recommendation Comments 1. Current diet order reads: Nutren 1.0 at 40ml/hr with comment Glucerna ( Diabetisource) at 40ml/hr, providing to meet 59% and 70%, respectively, of lower end of kcal needs. RD called Dr. Gonzalez 11:30am to clarify order, waiting for call back. Current MDs' nutrition related plan of care: aggressive hydration, resolve diarrhea. 2. Recommend Diabetisource at 60ml/hr, providing 1440ml total volume, 1728kcal to meet 100% of lower end of kcal needs, and 86g protein. OR if kept with Nutren 1.0, recommend 1 packet Prosource via tube, 1 packet Arginaid via tube, rate at 70ml/hr, prvoiding 1680ml total volume, 1680kcal, 67g protein from tube feeding. Expected Outcomes/Goals Expected Outcomes/Goals 1. Diarrhea to resolve. 2. Pt to meet 100% of estimated nutritional needs on tube feeding with tolerance.
--- NOTE | 2016-12-26 17:46 | General Progress Note ---
Subjective - Review of Systems Service Date: 12/26/16 Subjective: obtunded, tachypneic Objective - Results Result Diagrams: 12/26/16 06:16 12/26/16 06:16 Recent Labs: Laboratory Last Values WBC 12.6 Th/cmm (4.8-10.8) H 12/26/16 06:16 RBC 2.63 Mil/cmm (3.80-5.20) L 12/26/16 06:16 Hgb 7.8 gm/dL (11.7-16.1) L* 12/26/16 06:16 Hct 23.3 % (35.0-45.0) L* 12/26/16 06:16 MCV 88.5 fl (81-100) 12/26/16 06:16 MCH 29.5 pg (27.0-31.0) 12/26/16 06:16 MCHC Differential 33.3 pg (28.0-36.0) 12/26/16 06:16 RDW 15.8 % (11.5-20.0) 12/26/16 06:16 Plt Count 305 Th/cmm (150-400) 12/26/16 06:16 MPV 10.3 fl 12/26/16 06:16 Neutrophils % 74.3 % (40.0-80.0) 12/26/16 06:16 Band Neutrophils % 1 % (0-10) 12/23/16 05:26 Lymphocytes % 17.3 % (20.0-50.0) L 12/26/16 06:16 Monocytes % 4.1 % (2.0-10.0) 12/26/16 06:16 Eosinophils % 4.0 % (0.0-5.0) 12/26/16 06:16 Basophils % 0.3 % (0.0-2.0) 12/26/16 06:16 Neutrophils (Manual) 76 % (40-80) 12/23/16 05:26 Lymphocytes 18 % (20-50) L 12/23/16 05:26 Monocytes 4 % (2-10) 12/22/16 06:12 Eosinophils 5 % (0-5) 12/23/16 05:26 Platelet Estimate ADEQUATE (NORMAL) 12/23/16 05:26 Platelet Morphology NORMAL (NORMAL) 12/18/16 04:46 Polychromasia 1+ 12/17/16 06:36 Anisocytosis 1+ 12/18/16 04:46 RBC Morph Micro Appear ABNORMAL (NORMAL) 12/18/16 04:46 ESR > 140 mm/hr (0-30) H 12/19/16 04:40 PT 10.2 SECONDS (9.5-11.5) 12/21/16 08:30 INR 0.98 (0.5-1.4) 12/21/16 08:30 PTT (Actin FS) 24.7 SECONDS (26.0-38.0) L 12/21/16 08:30 Sodium 132 mEq/L (136-145) L 12/26/16 06:16 Potassium 4.5 mEq/L (3.5-5.1) 12/26/16 06:16 Chloride 105 mEq/L (98-107) 12/26/16 06:16 Carbon Dioxide 22.9 mEq/L (21.0-31.0) 12/26/16 06:16 Anion Gap 8.6 (7.0-16.0) 12/26/16 06:16 BUN 26 mg/dL (7-25) H 12/26/16 06:16 Creatinine 0.5 mg/dL (0.6-1.2) L 12/26/16 06:16 Est GFR ( Amer) > 60.0 ml/min (>90) 12/26/16 06:16 Est GFR (Non-Af Amer) > 60.0 ml/min 12/26/16 06:16 BUN/Creatinine Ratio 52.0 12/26/16 06:16 Glucose 119 mg/dL (70-105) H 12/26/16 06:16 POC Glucose 94 MG/DL (70 - 105) 12/26/16 16:33 Hemoglobin A1c % 7.1 % (4.0-6.0) H 12/16/16 18:45 Whole Bld Lactic Acid 1.42 mmol/L (0.60-1.99) 12/20/16 04:40 Calcium 8.2 mg/dL (8.6-10.3) L 12/26/16 06:16 Magnesium 2.0 mg/dL (1.9-2.7) 12/20/16 04:40 Iron 38 ug/dL (27-139) 12/18/16 04:46 TIBC 168 ug/dL (250-450) L 12/18/16 04:46 Iron Saturation 23 % (15-55) 12/18/16 04:46 Unsaturated IBC 130 ug/dL (118-369) 12/18/16 04:46 Total Bilirubin 0.2 mg/dL (0.3-1.0) L 12/26/16 06:16 AST 13 U/L (13-39) 12/26/16 06:16 ALT 10 U/L (7-52) 12/26/16 06:16 Alkaline Phosphatase 72 U/L (34-104) 12/26/16 06:16 Ammonia 36 umol/L (16-53) 12/19/16 19:22 C-Reactive Protein 19.8 mg/dL (0.0-0.9) H 12/19/16 04:40 B-Natriuretic Peptide 385.0 pg/mL (5.0-100.0) H 12/17/16 06:36 Total Protein 6.2 gm/dL (6.0-8.3) 12/26/16 06:16 Albumin 2.4 gm/dL (3.7-5.3) L 12/26/16 06:16 Globulin 3.8 gm/dL 12/26/16 06:16 Albumin/Globulin Ratio 0.6 (1.0-1.8) L 12/26/16 06:16 TSH 1.38 uIU/ml (0.34-5.60) 12/17/16 06:36 Urine Source [place] 12/16/16 18:40 Urine Color YELLOW 12/16/16 18:40 Urine Clarity HAZY (CLEAR) 12/16/16 18:40 Urine pH >=9.0 12/16/16 18:40 Ur Specific [place] 1.010 (1.005-1.030) 12/16/16 18:40 Urine Protein >300 mg/dL (NEGATIVE) H 12/16/16 18:40 Urine Glucose (UA) 250 mg/dL (NEGATIVE) H 12/16/16 18:40 Urine Ketones NEGATIVE mg/dL (NEGATIVE) 12/16/16 18:40 Urine Blood NEGATIVE (NEGATIVE) 12/16/16 18:40 Urine Nitrate POSITIVE (NEGATIVE) H 12/16/16 18:40 Urine Bilirubin NEGATIVE (NEGATIVE) 12/16/16 18:40 Urine Urobilinogen 0.2 E.U./dL (0.2 - 1.0) 12/16/16 18:40 Ur Leukocyte Esterase SMALL (NEGATIVE) H 12/16/16 18:40 Urine RBC 0-2 /hpf (0-5) 12/16/16 18:40 Urine WBC 50-100 /hpf (0-5) H 12/16/16 18:40 Ur Epithelial Cells FEW /lpf (FEW) 12/16/16 18:40 Triple Phos Crystals FEW /hpf (FEW) 12/16/16 18:40 Urine Bacteria MANY /hpf (NONE SEEN) 12/16/16 18:40 Vancomycin Trough 31.8 ug/mL (10-20) H 12/26/16 09:00 Random Vancomycin 20.5 ug/mL (5.0-40.0) 12/22/16 06:12 Blood Type A POSITIVE 12/17/16 09:45 Antibody Screen NEGATIVE 12/17/16 09:45 Crossmatch See Detail 12/17/16 09:45 - Physical Exam Vitals and I&O: Vital Signs Temp 96.8 F 12/26/16 11:55 Pulse 97 12/26/16 11:55 Resp 20 12/26/16 16:00 BP 118/59 12/26/16 11:55 Pulse Ox 98 12/26/16 16:00 Intake & Output 12/25/16 12/26/16 12/26/16 18:59 06:59 18:59 Intake Total 350 1370 Output Total 200 Balance 350 1170 Weight (lbs) 60.781 kg Intake: Intake, IV Amount 350 350 Meropenem 1 gm In Sodium 100 100 Chloride 0.9% 100 ml @ 100 mls/hr IV Q12HR DC Rx#:[id number] Vancomycin HCl 1 gm In 250 250 Sodium Chloride 0.9% 250 ml @ 165 mls/hr IV Q12H DC Rx#:[id number] Tube Feeding 1020 Output: Stool 200 Other: Stool Characteristics Soft Liquid Liquid Brown Mucoid Mucoid Brown Brown Active Medications: Current Medications Acetaminophen (Tylenol 650mg/20.3ml Suspension) 650 mg GT Q6HR PRN PRN Reason: Pain or Fever >101 Stop: 02/14/17 21:15 Last Admin: 12/20/16 03:55 Dose: 650 mg Acetaminophen/Hydrocodone Bitart ([place] 5mg/325mg) 1 tab GT Q4H PRN PRN Reason: Pain (Severe) Stop: 02/14/17 21:15 Last Admin: 12/26/16 04:27 Dose: 1 tab Albuterol Sulfate (Albuterol 2.5mg/3ml Neb Ud) 2.5 mg HHN Q2HRT PRN PRN Reason: Shortness of Breath or Wheeze Stop: 02/14/17 21:19 Last Admin: 12/24/16 12:05 Dose: 2.5 mg Albuterol/Ipratropium (Duoneb Neb) 3 ml HHN Q6HRT [facility] Stop: 02/15/17 00:59 Last Admin: 12/26/16 15:32 Dose: 3 ml Ascorbic Acid (Vitamin C) 500 mg GT DAILY [facility] Stop: 02/15/17 08:59 Last Admin: 12/26/16 08:37 Dose: 500 mg Bisacodyl (Dulcolax 10 Mg Supp) 10 mg RC DAILY PRN PRN Reason: IF MOM INEFFECTIVE Stop: 02/14/17 21:15 Clonidine HCl (Catapres) 0.1 mg PO Q6H PRN PRN Reason: SBP GREATER THAN 160 Stop: 02/14/17 21:19 Diphenoxylate HCl/Atropine (Lomotil) 2 tab PO TID PRN PRN Reason: Diarrhea Stop: 02/19/17 12:01 Guaifenesin (Robitussin) 200 mg PO Q4HR PRN PRN Reason: Cough or Congestion Stop: 02/14/17 21:19 Meropenem 1 gm/ Sodium (Chloride) 100 mls @ 100 mls/hr IV Q12HR [facility] Stop: 02/16/17 12:59 Last Admin: 12/26/16 08:36 Dose: 100 mls/hr Dextrose/Sodium Chloride (D5-0.45ns) 1,000 mls @ 70 mls/hr IV .[id number] [facility] Stop: 02/20/17 09:54 Last Admin: 12/25/16 17:41 Dose: 70 mls/hr Vancomycin HCl 0.75 gm/ Sodium (Chloride) 250 mls @ 165 mls/hr IV Q12H [facility] Stop: 02/25/17 19:59 Insulin Aspart (Novolog Insulin Sliding Scale) 0 units SUBQ ACHS DC PRN Reason: Protocol Stop: 02/15/17 20:59 Last Admin: 12/26/16 16:34 Dose: Not Given Insulin Human NPH (Novolin N) 20 units SUBQ BIDAC DC PRN Reason: Protocol Stop: 02/16/17 07:29 Last Admin: 12/26/16 16:35 Dose: Not Given Ipratropium [place] (Atrovent Neb 0.5mg/2.5ml) 0.5 mg IH Q2HRT PRN PRN Reason: Shortness of Breath or Wheeze Stop: 02/14/17 21:19 Lactobacillus Rhamnosus (Culturelle) 1 each GT Q12H DC Stop: 02/14/17 21:29 Last Admin: 12/26/16 08:37 Dose: 1 each Loperamide HCl (Imodium 1mg/5ml Suspension) 2 mg GT Q4H PRN PRN Reason: Diarrhea Stop: 02/14/17 21:15 Lorazepam (Ativan) 0.5 mg GT Q6H PRN; Protocol PRN Reason: Anxiety Stop: 02/14/17 21:15 Last Admin: 12/18/16 23:53 Dose: 0.5 mg Midodrine (Proamatine) 10 mg PO TID DC Stop: 02/17/17 20:59 Last Admin: 12/26/16 15:00 Dose: 10 mg Miscellaneous (Probiotic Screen) 1 ea PRN PRN PRN Reason: PROTOCOL Stop: 02/15/17 15:43 Miscellaneous (Vancomycin Iv Per Pharmacy) 1 ea PRN PRN PRN Reason: PROTOCOL Stop: 02/23/17 09:59 Ondansetron HCl (Zofran) 4 mg IV Q8H PRN PRN Reason: Nausea / Vomiting Stop: 02/14/17 21:19 Last Admin: 12/17/16 12:53 Dose: 4 mg Pantoprazole Sodium (Protonix) 40 mg GT Q24H DC Stop: 02/14/17 21:29 Last Admin: 12/25/16 21:16 Dose: 40 mg Sodium Bicarbonate (Sodium Bicarbonate) 650 mg PO BID DC PRN Reason: Protocol Stop: 02/21/17 16:59 Last Admin: 12/26/16 16:34 Dose: 650 mg General: Alert, No acute distress, Severe distress HEENT: PERRLA, Mucous membr. moist/pink Neck: Supple, +2 carotid pulse wo bruit Cardiovascular: Regular rate, Normal S1, Normal S2 Lungs: Clear to auscultation, Other (rhonchi, congestion) Abdomen: Bowel sounds (hyperactive), Soft, Distended (mildly) Extremities: no Edema (none) Neurological: Sensation intact Skin: no Rash Psych/Mental Status: Mood NL - Procedures Procedures: Procedures Procedure Code Date ASSISTANCE WITH RESPIRATORY VENTILATION, 24-96 HRS, CPAP [id number] 09/12/16 BLOOD TRANSFUSION SERVICE 24167 12/16/16 EXCISION OF BACK SUBCU/FASCIA, OPEN APPROACH [id number] 12/16/16 [place]ACC[place] 13376 04/15/16 IMMUNIZATION ADMIN 69695 04/15/16 INSERT PICC CATH 13453 04/15/16 INSERTION OF INFUSION DEVICE INTO R [facility], PERC APPROACH [id number] 04/15/16 INTRODUCTION OF SERUM/TOX/VACCINE INTO MUSCLE, PERC APPROACH [id number] 04/15/16 POS AIRWAY PRESSURE CPAP 67425 09/12/16 REMOVAL OF PRESSURE SORE 45097 12/16/16 TRANSFUSE NONAUT RED BLOOD CELLS IN PERIPH VEIN, PERC [id number] 12/16/16 Assessment/Plan - Problem List Patient Problems: All Active Problems MRSA (methicillin resistant Staphylococcus aureus) septicemia (Acute) A41.02 MRSA septicemia (Acute) proteus sepsis (Acute) proteus sepsis (Acute) proteus urinary tract infection (Acute) proteus urinary tract infection (Acute) FEVER WITH ELEVATED WBC, BUN (Acute) Hyperosmolality and hypernatremia (Acute) E87.0 Weakness (Acute) azotemia better (Acute) - Assessment Assessment: Prerenal azotemia Hypernatremia secondary to dehydration MRSA septicemia Hyperkalemia secondary to replacement Anemia of chronic disease Non-gap metabolic acidosis Proteus mirabilis complicated UTI acute resp failure on BIPAP - Plan Plan: Lab - Result Diagrams 12/22/16 06:12 12/22/16 08:20 Current Medications Acetaminophen (Tylenol 650mg/20.3ml Suspension) 650 mg GT Q6HR PRN PRN Reason: Pain or Fever >101 Stop: 02/14/17 21:15 Last Admin: 12/20/16 03:55 Dose: 650 mg Acetaminophen/Hydrocodone Bitart ([place] 5mg/325mg) 1 tab GT Q4H PRN PRN Reason: Pain (Severe) Stop: 02/14/17 21:15 Last Admin: 12/22/16 06:32 Dose: 1 tab Albuterol Sulfate (Albuterol 2.5mg/3ml Neb Ud) 2.5 mg HHN Q2HRT PRN PRN Reason: Shortness of Breath or Wheeze Stop: 02/14/17 21:19 Albuterol/Ipratropium (Duoneb Neb) 3 ml HHN Q6HRT DC Stop: 02/15/17 00:59 Last Admin: 12/22/16 12:18 Dose: 3 ml Ascorbic Acid (Vitamin C) 500 mg GT DAILY [facility] Stop: 02/15/17 08:59 Last Admin: 12/22/16 09:16 Dose: 500 mg Bisacodyl (Dulcolax 10 Mg Supp) 10 mg RC DAILY PRN PRN Reason: IF MOM INEFFECTIVE Stop: 02/14/17 21:15 Clonidine HCl (Catapres) 0.1 mg PO Q6H PRN PRN Reason: SBP GREATER THAN 160 Stop: 02/14/17 21:19 Diphenoxylate HCl/Atropine (Lomotil) 2 tab PO TID PRN PRN Reason: Diarrhea Stop: 02/19/17 12:01 Guaifenesin (Robitussin) 200 mg PO Q4HR PRN PRN Reason: Cough or Congestion Stop: 02/14/17 21:19 Meropenem 1 gm/ Sodium (Chloride) 100 mls @ 100 mls/hr IV Q12HR [facility] Stop: 02/16/17 12:59 Last Admin: 12/22/16 09:12 Dose: 100 mls/hr Daptomycin 360 mg/ Sodium (Chloride) 100 mls @ 100 mls/hr IV Q24H [facility] Stop: 02/19/17 11:14 Last Admin: 12/22/16 11:44 Dose: 100 mls/hr Dextrose/Sodium Chloride (D5-0.45ns) 1,000 mls @ 100 mls/hr IV .Q10H [facility] Stop: 02/20/17 09:54 Last Admin: 12/22/16 11:45 Dose: 100 mls/hr Insulin Aspart (Novolog Insulin Sliding Scale) 0 units SUBQ ACHS DC PRN Reason: Protocol Stop: 02/15/17 20:59 Last Admin: 12/21/16 22:33 Dose: Not Given Insulin Human NPH (Novolin N) 20 units SUBQ BIDAC DC PRN Reason: Protocol Stop: 02/16/17 07:29 Last Admin: 12/22/16 06:32 Dose: 20 units Ipratropium [place] (Atrovent Neb 0.5mg/2.5ml) 0.5 mg IH Q2HRT PRN PRN Reason: Shortness of Breath or Wheeze Stop: 02/14/17 21:19 Lactobacillus Rhamnosus (Culturelle) 1 each GT Q12H DC Stop: 02/14/17 21:29 Last Admin: 12/22/16 09:16 Dose: 1 each Loperamide HCl (Imodium 1mg/5ml Suspension) 2 mg GT Q4H PRN PRN Reason: Diarrhea Stop: 02/14/17 21:15 Lorazepam (Ativan) 0.5 mg GT Q6H PRN; Protocol PRN Reason: Anxiety Stop: 02/14/17 21:15 Last Admin: 12/18/16 23:53 Dose: 0.5 mg Midodrine (Proamatine) 10 mg PO TID [facility] Stop: 02/17/17 20:59 Last Admin: 12/22/16 13:55 Dose: 10 mg Miscellaneous (Probiotic Screen) 1 ea MC PRN PRN PRN Reason: PROTOCOL Stop: 02/15/17 15:43 Morphine Sulfate (Morphine) 2 mg IVP Q4H PRN PRN Reason: Severe Pain Stop: 02/16/17 10:57 Last Admin: 12/21/16 18:36 Dose: 2 mg Ondansetron HCl (Zofran) 4 mg IV Q8H PRN PRN Reason: Nausea / Vomiting Stop: 02/14/17 21:19 Last Admin: 12/17/16 12:53 Dose: 4 mg Pantoprazole Sodium (Protonix) 40 mg GT Q24H DC Stop: 02/14/17 21:29 Last Admin: 12/21/16 22:28 Dose: 40 mg Potassium Chloride (Potassium Chloride Elixir) 40 meq GT BID [facility] Stop: 12/23/16 09:59 Last Admin: 12/22/16 09:18 Dose: Not Given Kidney function improving with the BUN/creatinine of 26/0.5 DC IVF Continue feedings Follow-up electrolytes and CBC Add sodium bicarbonate now on BIPAP poor prognosis Lab - Result Diagrams 12/26/16 06:16 12/26/16 06:16 Nutritional Asmnt/Malnutr-PDOC - Dietary Evaluation Malnutrition Findings (Please click <Entered> for more info): Nutritional Asmnt/Malnutrition Start: 12/18/16 14: 50 Text: Status: Complete Freq: Document 12/18/16 14:51 GSUN (Rec: 12/18/16 15:26 GSUN [email or web address]) Nutritional Asmnt/Malnutrition Patient General Information Nutritional Screening Consult Diagnosis Sepsis, sepsis shock, sacral wound stage 4, DM2, diarrhea, CKD vs PER CKD Pertinent Medical Hx/Surgical Hx HTN, bronchitis, penumonia, dementia, constipation, GERD, gastritis, anxiety, psychosis, muscle atrophy, weakness, stiffness, acute renal failure , UTI, osteoporosis Subjective Information 66 year old female from SNF. RD consult for wound. Pt noted with consistent diarrhea. Spoke to Dr. Gonzalez on the phone this AM. Current diet order per Nutren 1.0 at 40ml/hr vs Glucerna at 40ml/hr . RD called Dr. Gonzalez back for clarification at around 11 :30am, waiting for callback. RD endorsed to RN Nabila regarding enteral feeding recommendations. Plan for aggressiveh dyration noted in MD notes, also noted just cover glucose with higher dose of insulin. Observed Diabetisource running at 50ml/ hr during visit. No severe muscle/fat wasting noted. CBW 133.3lb with equipment removed . Current Diet Order/ Nutrition Support Glucerna 40ml/hr vs Nutren 1.0 40ml/hr Pertinent Medications Vitamin C, D5W, Novolog, Novolin, Culturelle, Flagyl, Vancomycin, Morphine, Zofran, Protonix Pertinent Labs 12/16: A1c 7.1H 10: sodium 164H, BUN 121H, creatinine 2.4H, glucose 326H Nutritional Hx/Data Height 1.63 m Height (Calculated Centimeters) 162.6 Current Weight (lbs) 60.464 kg Weight (Calculated Kilograms) 60.5 Weight (Calculated Grams) 12610.9 [place] Body Weight 120 Weight Status Approriate GI Symptoms GI Symptoms Diarrhea Difficult in: Chewing Swallowing Usual diet at home [place] Care: Jevity 1.2 at 70ml/hr x 20hrs, prostat Skin Integrity/Comment: Ruslan 11. note: sacral wound stage 4 Estimated Nutritional Goals Calories/Kcals/Kg IBW 120lb/54.5kg due to questionable weights obtained Kcals Calculated 1635-1980kcal (30-35kcal/kg, sepsis, skin integrity, bedridden) Protein Calculated 76-98g (1.4-1.8g/kg, renal vs sacral wound stage 4) Fluid: ml Per MD (plan for aggressive hydration) Nutritional Problem 3. Problem Problem Increased kcal andp rot needs realted to Etiology hypermetabolic state, skin integrity aeb Signs/Symptoms: sepsis, sacral wound stage 4 2. Problem Problem Altered nutrition related laboratory values related to Etiology DM aeb Signs/Symptoms: A1c 7.1, glucose >180 1. Problem Problem Altered GI function related to Etiology unknown etiology aeb Signs/Symptoms: consistent diarrhea Intervention/Recommendation Comments 1. Current diet order reads: Nutren 1.0 at 40ml/hr with comment Glucerna ( Diabetisource) at 40ml/hr, providing to meet 59% and 70%, respectively, of lower end of kcal needs. RD called Dr. Gonzalez 11:30am to clarify order, waiting for call back. Current MDs' nutrition related plan of care: aggressive hydration, resolve diarrhea. 2. Recommend Diabetisource at 60ml/hr, providing 1440ml total volume, 1728kcal to meet 100% of lower end of kcal needs, and 86g protein. OR if kept with Nutren 1.0, recommend 1 packet Prosource via tube, 1 packet Arginaid via tube, rate at 70ml/hr, prvoiding 1680ml total volume, 1680kcal, 67g protein from tube feeding. Expected Outcomes/Goals Expected Outcomes/Goals 1. Diarrhea to resolve. 2. Pt to meet 100% of estimated nutritional needs on tube feeding with tolerance.
[2016-12-26] MEDS: Pantoprazole 40 mg/Packet GT SCH (21:20)
[2016-12-27] MEDS: Albuterol/Ipratropium Neb 3 ML AERS HHN SCH (01:00)
--- NOTE | 2017-01-01 12:36 | Discharge Summary ---
General Discharge Summary - Discharge Summary Date of Admission: 01/01/17 ([id number]) Patient Problems: All Active Problems FEVER WITH ELEVATED WBC, BUN (Acute) Hyperosmolality and hypernatremia (Acute) E87.0 MRSA (methicillin resistant Staphylococcus aureus) septicemia (Acute) A41.02 MRSA septicemia (Acute) Weakness (Acute) azotemia better (Acute) proteus sepsis (Acute) proteus sepsis (Acute) proteus urinary tract infection (Acute) proteus urinary tract infection (Acute) Laboratory Findings: Laboratory Tests 12/16/16 12/16/16 12/16/16 20:48 20:48 21:13 WBC RBC Hgb Hct MCV MCH MCHC Differential RDW Plt Count MPV Neutrophils % Band Neutrophils % Lymphocytes % Monocytes % Eosinophils % Basophils % Neutrophils (Manual) Lymphocytes Monocytes Eosinophils Platelet Estimate Platelet Morphology Polychromasia Anisocytosis RBC Morph Micro Appear ESR PT INR PTT (Actin FS) Sodium Potassium Chloride Carbon Dioxide Anion Gap BUN Creatinine Est GFR ( Amer) Est GFR (Non-Af Amer) BUN/Creatinine Ratio Glucose 703 H* POC Glucose 578 H* Whole Bld Lactic Acid 3.95 H* Calcium Magnesium Iron TIBC Iron Saturation Unsaturated IBC Total Bilirubin AST ALT Alkaline Phosphatase Ammonia C-Reactive Protein B-Natriuretic Peptide Total Protein Albumin Globulin Albumin/Globulin Ratio TSH Vancomycin Trough Random Vancomycin Blood Type Antibody Screen Crossmatch 12/17/16 12/17/16 12/17/16 05:37 05:43 06:36 WBC 26.8 H* RBC 2.29 L Hgb 6.7 L* D Hct 20.8 L* D MCV 90.8 MCH 29.4 MCHC Differential 32.4 RDW 19.1 Plt Count 304 D MPV 12.6 Neutrophils % Band Neutrophils % 2 Lymphocytes % Monocytes % Eosinophils % Basophils % Neutrophils (Manual) 90 H Lymphocytes 8 L Monocytes Eosinophils Platelet Estimate ADEQUATE Platelet Morphology Polychromasia 1+ Anisocytosis RBC Morph Micro Appear ESR PT INR PTT (Actin FS) Sodium Potassium Chloride Carbon Dioxide Anion Gap BUN Creatinine Est GFR ( Amer) Est GFR (Non-Af Amer) BUN/Creatinine Ratio Glucose POC Glucose 474 H* 427 H Whole Bld Lactic Acid Calcium Magnesium Iron TIBC Iron Saturation Unsaturated IBC Total Bilirubin AST ALT Alkaline Phosphatase Ammonia C-Reactive Protein B-Natriuretic Peptide Total Protein Albumin Globulin Albumin/Globulin Ratio TSH Vancomycin Trough Random Vancomycin Blood Type Antibody Screen Crossmatch 12/17/16 12/17/16 12/17/16 06:36 06:36 06:36 WBC RBC Hgb Hct MCV MCH MCHC Differential RDW Plt Count MPV Neutrophils % Band Neutrophils % Lymphocytes % Monocytes % Eosinophils % Basophils % Neutrophils (Manual) Lymphocytes Monocytes Eosinophils Platelet Estimate Platelet Morphology Polychromasia Anisocytosis RBC Morph Micro Appear ESR PT INR PTT (Actin FS) Sodium 160 H* Potassium 4.9 Chloride 129 H Carbon Dioxide 18.9 L Anion Gap 17.0 H BUN 138 H* Creatinine 2.9 H Est GFR ( Amer) 20.9 Est GFR (Non-Af Amer) 17.3 BUN/Creatinine Ratio 47.6 Glucose 550 H* POC Glucose Whole Bld Lactic Acid Calcium 9.3 Magnesium 2.9 H Iron TIBC Iron Saturation Unsaturated IBC Total Bilirubin 0.2 L AST 15 ALT 36 Alkaline Phosphatase 111 H Ammonia 43 C-Reactive Protein B-Natriuretic Peptide 385.0 H Total Protein 7.5 Albumin 3.2 L Globulin 4.3 Albumin/Globulin Ratio 0.7 L TSH 1.38 Vancomycin Trough Random Vancomycin Blood Type Antibody Screen Crossmatch 12/17/16 12/17/16 12/17/16 09:45 13:20 16:13 WBC RBC Hgb Hct MCV MCH MCHC Differential RDW Plt Count MPV Neutrophils % Band Neutrophils % Lymphocytes % Monocytes % Eosinophils % Basophils % Neutrophils (Manual) Lymphocytes Monocytes Eosinophils Platelet Estimate Platelet Morphology Polychromasia Anisocytosis RBC Morph Micro Appear ESR PT INR PTT (Actin FS) Sodium Potassium Chloride Carbon Dioxide Anion Gap BUN Creatinine Est GFR ( Amer) Est GFR (Non-Af Amer) BUN/Creatinine Ratio Glucose POC Glucose 437 H Whole Bld Lactic Acid Calcium Magnesium Iron TIBC Iron Saturation Unsaturated IBC Total Bilirubin AST ALT Alkaline Phosphatase Ammonia C-Reactive Protein B-Natriuretic Peptide Total Protein Albumin Globulin Albumin/Globulin Ratio TSH Vancomycin Trough Random Vancomycin 17.3 Blood Type A POSITIVE Antibody Screen NEGATIVE Crossmatch See Detail 12/17/16 12/17/16 12/18/16 17:51 21:11 04:46 WBC 18.0 H D RBC 2.77 L Hgb 8.1 L Hct 25.1 L D MCV 90.5 MCH 29.3 MCHC Differential 32.4 RDW 18.3 Plt Count 220 D MPV 11.9 Neutrophils % Band Neutrophils % 2 Lymphocytes % Monocytes % Eosinophils % Basophils % Neutrophils (Manual) 86 H Lymphocytes 8 L Monocytes 3 Eosinophils 1 Platelet Estimate ADEQUATE Platelet Morphology NORMAL Polychromasia Anisocytosis 1+ RBC Morph Micro Appear ABNORMAL ESR PT INR PTT (Actin FS) Sodium Potassium Chloride Carbon Dioxide Anion Gap BUN Creatinine Est GFR ( Amer) Est GFR (Non-Af Amer) BUN/Creatinine Ratio Glucose POC Glucose 419 H 333 H Whole Bld Lactic Acid Calcium Magnesium Iron TIBC Iron Saturation Unsaturated IBC Total Bilirubin AST ALT Alkaline Phosphatase Ammonia C-Reactive Protein B-Natriuretic Peptide Total Protein Albumin Globulin Albumin/Globulin Ratio TSH Vancomycin Trough Random Vancomycin Blood Type Antibody Screen Crossmatch 12/18/16 12/18/16 12/18/16 04:46 04:46 04:46 WBC RBC Hgb Hct MCV MCH MCHC Differential RDW Plt Count MPV Neutrophils % Band Neutrophils % Lymphocytes % Monocytes % Eosinophils % Basophils % Neutrophils (Manual) Lymphocytes Monocytes Eosinophils Platelet Estimate Platelet Morphology Polychromasia Anisocytosis RBC Morph Micro Appear ESR PT INR PTT (Actin FS) Sodium 164 H* Potassium 3.5 Chloride 135 H Carbon Dioxide 18.6 L Anion Gap 13.9 BUN 121 H* Creatinine 2.4 H Est GFR ( Amer) 26.1 Est GFR (Non-Af Amer) 21.5 BUN/Creatinine Ratio 50.4 Glucose 326 H POC Glucose Whole Bld Lactic Acid Calcium 8.7 Magnesium 2.7 Iron 38 TIBC 168 L Iron Saturation 23 Unsaturated IBC 130 Total Bilirubin AST ALT Alkaline Phosphatase Ammonia C-Reactive Protein B-Natriuretic Peptide Total Protein Albumin Globulin Albumin/Globulin Ratio TSH Vancomycin Trough Random Vancomycin 28.0 Blood Type Antibody Screen Crossmatch 12/18/16 12/18/16 12/18/16 11:58 17:07 21:09 WBC RBC Hgb Hct MCV MCH MCHC Differential RDW Plt Count MPV Neutrophils % Band Neutrophils % Lymphocytes % Monocytes % Eosinophils % Basophils % Neutrophils (Manual) Lymphocytes Monocytes Eosinophils Platelet Estimate Platelet Morphology Polychromasia Anisocytosis RBC Morph Micro Appear ESR PT INR PTT (Actin FS) Sodium Potassium Chloride Carbon Dioxide Anion Gap BUN Creatinine Est GFR ( Amer) Est GFR (Non-Af Amer) BUN/Creatinine Ratio Glucose POC Glucose 265 H 215 H 158 H Whole Bld Lactic Acid Calcium Magnesium Iron TIBC Iron Saturation Unsaturated IBC Total Bilirubin AST ALT Alkaline Phosphatase Ammonia C-Reactive Protein B-Natriuretic Peptide Total Protein Albumin Globulin Albumin/Globulin Ratio TSH Vancomycin Trough Random Vancomycin Blood Type Antibody Screen Crossmatch 12/19/16 12/19/16 12/19/16 04:40 04:40 04:40 WBC 12.3 H D RBC 2.27 L Hgb 6.8 L* D Hct 20.1 L* D MCV 88.8 MCH 29.8 MCHC Differential 33.6 RDW 17.7 Plt Count 192 MPV 11.3 Neutrophils % Band Neutrophils % Lymphocytes % Monocytes % Eosinophils % Basophils % Neutrophils (Manual) 89 H Lymphocytes 9 L Monocytes 2 Eosinophils Platelet Estimate ADEQUATE Platelet Morphology Polychromasia Anisocytosis RBC Morph Micro Appear ESR > 140 H PT INR PTT (Actin FS) Sodium 160 H* Potassium 2.3 L* D Chloride 134 H Carbon Dioxide 17.1 L Anion Gap 11.2 BUN 83 H* Creatinine 1.6 H Est GFR ( Amer) 41.6 Est GFR (Non-Af Amer) 34.4 BUN/Creatinine Ratio 51.9 Glucose 207 H POC Glucose Whole Bld Lactic Acid Calcium 8.5 L Magnesium Iron TIBC Iron Saturation Unsaturated IBC Total Bilirubin AST ALT Alkaline Phosphatase Ammonia C-Reactive Protein B-Natriuretic Peptide Total Protein Albumin Globulin Albumin/Globulin Ratio TSH Vancomycin Trough Random Vancomycin 20.1 Blood Type Antibody Screen Crossmatch 12/19/16 12/19/16 12/19/16 04:40 04:40 08:57 WBC RBC Hgb Hct MCV MCH MCHC Differential RDW Plt Count MPV Neutrophils % Band Neutrophils % Lymphocytes % Monocytes % Eosinophils % Basophils % Neutrophils (Manual) Lymphocytes Monocytes Eosinophils Platelet Estimate Platelet Morphology Polychromasia Anisocytosis RBC Morph Micro Appear ESR PT INR PTT (Actin FS) Sodium Potassium Chloride Carbon Dioxide Anion Gap BUN Creatinine Est GFR ( Amer) Est GFR (Non-Af Amer) BUN/Creatinine Ratio Glucose POC Glucose 205 H Whole Bld Lactic Acid Calcium Magnesium 2.2 Iron TIBC Iron Saturation Unsaturated IBC Total Bilirubin AST ALT Alkaline Phosphatase Ammonia C-Reactive Protein 19.8 H B-Natriuretic Peptide Total Protein Albumin Globulin Albumin/Globulin Ratio TSH Vancomycin Trough Random Vancomycin Blood Type Antibody Screen Crossmatch 12/19/16 12/19/16 12/19/16 11:48 13:25 13:25 WBC RBC Hgb Hct MCV MCH MCHC Differential RDW Plt Count MPV Neutrophils % Band Neutrophils % Lymphocytes % Monocytes % Eosinophils % Basophils % Neutrophils (Manual) Lymphocytes Monocytes Eosinophils Platelet Estimate Platelet Morphology Polychromasia Anisocytosis RBC Morph Micro Appear ESR PT INR PTT (Actin FS) Sodium 155 H Potassium 2.5 L* Chloride 131 H Carbon Dioxide 18.7 L Anion Gap 7.8 BUN 76 H Creatinine 1.4 H Est GFR ( Amer) 48.5 Est GFR (Non-Af Amer) 40.1 BUN/Creatinine Ratio 54.3 Glucose 216 H POC Glucose 181 H Whole Bld Lactic Acid 1.65 Calcium 8.6 Magnesium Iron TIBC Iron Saturation Unsaturated IBC Total Bilirubin AST ALT Alkaline Phosphatase Ammonia C-Reactive Protein B-Natriuretic Peptide Total Protein Albumin Globulin Albumin/Globulin Ratio TSH Vancomycin Trough Random Vancomycin Blood Type Antibody Screen Crossmatch 12/19/16 12/19/16 12/19/16 17:16 19:22 21:57 WBC RBC Hgb Hct MCV MCH MCHC Differential RDW Plt Count MPV Neutrophils % Band Neutrophils % Lymphocytes % Monocytes % Eosinophils % Basophils % Neutrophils (Manual) Lymphocytes Monocytes Eosinophils Platelet Estimate Platelet Morphology Polychromasia Anisocytosis RBC Morph Micro Appear ESR PT INR PTT (Actin FS) Sodium Potassium Chloride Carbon Dioxide Anion Gap BUN Creatinine Est GFR ( Amer) Est GFR (Non-Af Amer) BUN/Creatinine Ratio Glucose POC Glucose 206 H 208 H Whole Bld Lactic Acid Calcium Magnesium Iron TIBC Iron Saturation Unsaturated IBC Total Bilirubin AST ALT Alkaline Phosphatase Ammonia 36 C-Reactive Protein B-Natriuretic Peptide Total Protein Albumin Globulin Albumin/Globulin Ratio TSH Vancomycin Trough Random Vancomycin Blood Type Antibody Screen Crossmatch 12/20/16 12/20/16 12/20/16 04:40 04:40 04:40 WBC 13.0 H RBC 2.78 L Hgb 8.1 L Hct 24.6 L MCV 88.3 MCH 29.3 MCHC Differential 33.1 RDW 17.0 Plt Count 193 MPV 12.2 Neutrophils % Band Neutrophils % 1 Lymphocytes % Monocytes % Eosinophils % Basophils % Neutrophils (Manual) 94 H Lymphocytes 4 L Monocytes Eosinophils 1 Platelet Estimate ADEQUATE Platelet Morphology Polychromasia Anisocytosis RBC Morph Micro Appear ESR PT INR PTT (Actin FS) Sodium 157 H Potassium 2.7 L* Chloride 130 H Carbon Dioxide 20.4 L Anion Gap 9.3 BUN 62 H Creatinine 1.1 Est GFR ( Amer) > 60.0 Est GFR (Non-Af Amer) 53.0 BUN/Creatinine Ratio 56.4 Glucose 162 H POC Glucose Whole Bld Lactic Acid 1.42 Calcium 8.5 L Magnesium 2.0 Iron TIBC Iron Saturation Unsaturated IBC Total Bilirubin 0.2 L AST 26 ALT 49 Alkaline Phosphatase 74 Ammonia C-Reactive Protein B-Natriuretic Peptide Total Protein 6.0 Albumin 2.5 L Globulin 3.5 Albumin/Globulin Ratio 0.7 L TSH Vancomycin Trough Random Vancomycin Blood Type Antibody Screen Crossmatch 12/20/16 12/20/16 12/20/16 04:40 12:20 16:46 WBC RBC Hgb Hct MCV MCH MCHC Differential RDW Plt Count MPV Neutrophils % Band Neutrophils % Lymphocytes % Monocytes % Eosinophils % Basophils % Neutrophils (Manual) Lymphocytes Monocytes Eosinophils Platelet Estimate Platelet Morphology Polychromasia Anisocytosis RBC Morph Micro Appear ESR PT INR PTT (Actin FS) Sodium Potassium Chloride Carbon Dioxide Anion Gap BUN Creatinine Est GFR ( Amer) Est GFR (Non-Af Amer) BUN/Creatinine Ratio Glucose POC Glucose 146 H 155 H Whole Bld Lactic Acid Calcium Magnesium Iron TIBC Iron Saturation Unsaturated IBC Total Bilirubin AST ALT Alkaline Phosphatase Ammonia C-Reactive Protein B-Natriuretic Peptide Total Protein Albumin Globulin Albumin/Globulin Ratio TSH Vancomycin Trough Random Vancomycin 27.6 Blood Type Antibody Screen Crossmatch 12/21/16 12/21/16 12/21/16 05:45 06:41 06:41 WBC 12.1 H RBC 2.79 L Hgb 8.3 L Hct 24.6 L MCV 88.3 MCH 29.6 MCHC Differential 33.5 RDW 17.5 Plt Count 183 MPV 11.7 Neutrophils % 76.3 Band Neutrophils % Lymphocytes % 15.9 L Monocytes % 3.8 Eosinophils % 3.7 Basophils % 0.3 Neutrophils (Manual) Lymphocytes Monocytes Eosinophils Platelet Estimate Platelet Morphology Polychromasia Anisocytosis RBC Morph Micro Appear ESR PT INR PTT (Actin FS) Sodium 154 H Potassium 4.0 Chloride 129 H Carbon Dioxide 18.8 L Anion Gap 10.2 BUN 43 H Creatinine 0.8 Est GFR ( Amer) > 60.0 Est GFR (Non-Af Amer) > 60.0 BUN/Creatinine Ratio 53.8 Glucose 97 POC Glucose 104 Whole Bld Lactic Acid Calcium 8.3 L Magnesium Iron TIBC Iron Saturation Unsaturated IBC Total Bilirubin 0.3 AST 15 ALT 28 Alkaline Phosphatase 73 Ammonia C-Reactive Protein B-Natriuretic Peptide Total Protein 5.8 L Albumin 2.3 L Globulin 3.5 Albumin/Globulin Ratio 0.7 L TSH Vancomycin Trough Random Vancomycin Blood Type Antibody Screen Crossmatch 12/21/16 12/21/16 12/21/16 08:30 08:30 11:58 WBC RBC Hgb Hct MCV MCH MCHC Differential RDW Plt Count MPV Neutrophils % Band Neutrophils % Lymphocytes % Monocytes % Eosinophils % Basophils % Neutrophils (Manual) Lymphocytes Monocytes Eosinophils Platelet Estimate Platelet Morphology Polychromasia Anisocytosis RBC Morph Micro Appear ESR PT 10.2 INR 0.98 PTT (Actin FS) 24.7 L Sodium Potassium Chloride Carbon Dioxide Anion Gap BUN Creatinine Est GFR ( Amer) Est GFR (Non-Af Amer) BUN/Creatinine Ratio Glucose POC Glucose 97 Whole Bld Lactic Acid Calcium Magnesium Iron TIBC Iron Saturation Unsaturated IBC Total Bilirubin AST ALT Alkaline Phosphatase Ammonia C-Reactive Protein B-Natriuretic Peptide Total Protein Albumin Globulin Albumin/Globulin Ratio TSH Vancomycin Trough 27.2 H Random Vancomycin Blood Type Antibody Screen Crossmatch 12/21/16 12/21/16 12/22/16 16:11 22:32 06:07 WBC RBC Hgb Hct MCV MCH MCHC Differential RDW Plt Count MPV Neutrophils % Band Neutrophils % Lymphocytes % Monocytes % Eosinophils % Basophils % Neutrophils (Manual) Lymphocytes Monocytes Eosinophils Platelet Estimate Platelet Morphology Polychromasia Anisocytosis RBC Morph Micro Appear ESR PT INR PTT (Actin FS) Sodium Potassium Chloride Carbon Dioxide Anion Gap BUN Creatinine Est GFR ( Amer) Est GFR (Non-Af Amer) BUN/Creatinine Ratio Glucose POC Glucose 74 148 H 171 H Whole Bld Lactic Acid Calcium Magnesium Iron TIBC Iron Saturation Unsaturated IBC Total Bilirubin AST ALT Alkaline Phosphatase Ammonia C-Reactive Protein B-Natriuretic Peptide Total Protein Albumin Globulin Albumin/Globulin Ratio TSH Vancomycin Trough Random Vancomycin Blood Type Antibody Screen Crossmatch 12/22/16 12/22/16 12/22/16 06:12 06:12 06:12 WBC 15.8 H D RBC 2.82 L Hgb 8.3 L Hct 24.8 L MCV 88.2 MCH 29.4 MCHC Differential 33.4 RDW 17.0 Plt Count 229 D MPV 11.2 Neutrophils % Band Neutrophils % 4 Lymphocytes % Monocytes % Eosinophils % Basophils % Neutrophils (Manual) 66 Lymphocytes 20 Monocytes 4 Eosinophils 6 H Platelet Estimate ADEQUATE Platelet Morphology Polychromasia Anisocytosis RBC Morph Micro Appear ESR PT INR PTT (Actin FS) Sodium 148 H Potassium 6.9 H* D Chloride 124 H Carbon Dioxide 20.0 L Anion Gap 10.9 BUN 39 H Creatinine 0.8 Est GFR ( Amer) > 60.0 Est GFR (Non-Af Amer) > 60.0 BUN/Creatinine Ratio 48.8 Glucose 158 H POC Glucose Whole Bld Lactic Acid Calcium 6.4 L Magnesium Iron TIBC Iron Saturation Unsaturated IBC Total Bilirubin 0.3 AST 16 ALT 22 Alkaline Phosphatase 77 Ammonia C-Reactive Protein B-Natriuretic Peptide Total Protein 6.0 Albumin 2.4 L Globulin 3.6 Albumin/Globulin Ratio 0.7 L TSH Vancomycin Trough Random Vancomycin 20.5 Blood Type Antibody Screen Crossmatch 12/22/16 12/22/16 12/22/16 08:20 11:39 17:03 WBC RBC Hgb Hct MCV MCH MCHC Differential RDW Plt Count MPV Neutrophils % Band Neutrophils % Lymphocytes % Monocytes % Eosinophils % Basophils % Neutrophils (Manual) Lymphocytes Monocytes Eosinophils Platelet Estimate Platelet Morphology Polychromasia Anisocytosis RBC Morph Micro Appear ESR PT INR PTT (Actin FS) Sodium 146 H Potassium 5.6 H Chloride 124 H Carbon Dioxide 18.8 L Anion Gap 8.8 BUN 39 H Creatinine 0.8 Est GFR ( Amer) > 60.0 Est GFR (Non-Af Amer) > 60.0 BUN/Creatinine Ratio 48.8 Glucose 149 H POC Glucose 104 97 Whole Bld Lactic Acid Calcium 8.3 L Magnesium Iron TIBC Iron Saturation Unsaturated IBC Total Bilirubin AST ALT Alkaline Phosphatase Ammonia C-Reactive Protein B-Natriuretic Peptide Total Protein Albumin Globulin Albumin/Globulin Ratio TSH Vancomycin Trough Random Vancomycin Blood Type Antibody Screen Crossmatch 12/22/16 12/23/16 12/23/16 21:57 05:26 05:26 WBC 15.5 H RBC 2.70 L Hgb 7.9 L* Hct 23.9 L* MCV 88.5 MCH 29.3 MCHC Differential 33.1 RDW 16.4 Plt Count 244 MPV 10.7 Neutrophils % Band Neutrophils % 1 Lymphocytes % Monocytes % Eosinophils % Basophils % Neutrophils (Manual) 76 Lymphocytes 18 L Monocytes Eosinophils 5 Platelet Estimate ADEQUATE Platelet Morphology Polychromasia Anisocytosis RBC Morph Micro Appear ESR PT INR PTT (Actin FS) Sodium 143 Potassium 4.4 Chloride 118 H Carbon Dioxide 21.5 Anion Gap 7.9 BUN 34 H Creatinine 0.7 Est GFR ( Amer) > 60.0 Est GFR (Non-Af Amer) > 60.0 BUN/Creatinine Ratio 48.6 Glucose 132 H POC Glucose 93 Whole Bld Lactic Acid Calcium 8.1 L Magnesium Iron TIBC Iron Saturation Unsaturated IBC Total Bilirubin 0.2 L AST 15 ALT 16 Alkaline Phosphatase 69 Ammonia C-Reactive Protein B-Natriuretic Peptide Total Protein 5.6 L Albumin 2.3 L Globulin 3.3 Albumin/Globulin Ratio 0.7 L TSH Vancomycin Trough Random Vancomycin Blood Type Antibody Screen Crossmatch 12/23/16 12/23/16 12/23/16 06:56 12:10 17:10 WBC RBC Hgb Hct MCV MCH MCHC Differential RDW Plt Count MPV Neutrophils % Band Neutrophils % Lymphocytes % Monocytes % Eosinophils % Basophils % Neutrophils (Manual) Lymphocytes Monocytes Eosinophils Platelet Estimate Platelet Morphology Polychromasia Anisocytosis RBC Morph Micro Appear ESR PT INR PTT (Actin FS) Sodium Potassium Chloride Carbon Dioxide Anion Gap BUN Creatinine Est GFR ( Amer) Est GFR (Non-Af Amer) BUN/Creatinine Ratio Glucose POC Glucose 123 H 148 H 124 H Whole Bld Lactic Acid Calcium Magnesium Iron TIBC Iron Saturation Unsaturated IBC Total Bilirubin AST ALT Alkaline Phosphatase Ammonia C-Reactive Protein B-Natriuretic Peptide Total Protein Albumin Globulin Albumin/Globulin Ratio TSH Vancomycin Trough Random Vancomycin Blood Type Antibody Screen Crossmatch 12/23/16 12/24/16 12/24/16 21:32 05:35 05:35 WBC 13.6 H RBC 2.70 L Hgb 7.9 L* Hct 23.8 L* MCV 88.4 MCH 29.5 MCHC Differential 33.3 RDW 15.9 Plt Count 244 MPV 10.3 Neutrophils % 68.7 Band Neutrophils % Lymphocytes % 21.3 Monocytes % 4.3 Eosinophils % 5.2 H Basophils % 0.5 Neutrophils (Manual) Lymphocytes Monocytes Eosinophils Platelet Estimate Platelet Morphology Polychromasia Anisocytosis RBC Morph Micro Appear ESR PT INR PTT (Actin FS) Sodium 139 Potassium 4.7 Chloride 115 H Carbon Dioxide 21.0 Anion Gap 7.7 BUN 28 H Creatinine 0.6 Est GFR ( Amer) > 60.0 Est GFR (Non-Af Amer) > 60.0 BUN/Creatinine Ratio 46.7 Glucose 99 POC Glucose 117 H Whole Bld Lactic Acid Calcium 8.2 L Magnesium Iron TIBC Iron Saturation Unsaturated IBC Total Bilirubin 0.3 AST 13 ALT 14 Alkaline Phosphatase 67 Ammonia C-Reactive Protein B-Natriuretic Peptide Total Protein 5.8 L Albumin 2.3 L Globulin 3.5 Albumin/Globulin Ratio 0.7 L TSH Vancomycin Trough Random Vancomycin Blood Type Antibody Screen Crossmatch 12/24/16 12/24/16 12/25/16 12:22 21:38 06:08 WBC RBC Hgb Hct MCV MCH MCHC Differential RDW Plt Count MPV Neutrophils % Band Neutrophils % Lymphocytes % Monocytes % Eosinophils % Basophils % Neutrophils (Manual) Lymphocytes Monocytes Eosinophils Platelet Estimate Platelet Morphology Polychromasia Anisocytosis RBC Morph Micro Appear ESR PT INR PTT (Actin FS) Sodium Potassium Chloride Carbon Dioxide Anion Gap BUN Creatinine Est GFR ( Amer) Est GFR (Non-Af Amer) BUN/Creatinine Ratio Glucose POC Glucose 130 H 118 H 140 H Whole Bld Lactic Acid Calcium Magnesium Iron TIBC Iron Saturation Unsaturated IBC Total Bilirubin AST ALT Alkaline Phosphatase Ammonia C-Reactive Protein B-Natriuretic Peptide Total Protein Albumin Globulin Albumin/Globulin Ratio TSH Vancomycin Trough Random Vancomycin Blood Type Antibody Screen Crossmatch 12/25/16 12/25/16 12/25/16 06:10 06:10 11:08 WBC 14.0 H RBC 2.83 L Hgb 8.4 L Hct 25.1 L MCV 88.6 MCH 29.7 MCHC Differential 33.5 RDW 15.6 Plt Count 302 D MPV 9.8 Neutrophils % 74.5 Band Neutrophils % Lymphocytes % 16.4 L Monocytes % 4.6 Eosinophils % 4.1 Basophils % 0.4 Neutrophils (Manual) Lymphocytes Monocytes Eosinophils Platelet Estimate Platelet Morphology Polychromasia Anisocytosis RBC Morph Micro Appear ESR PT INR PTT (Actin FS) Sodium 138 Potassium 4.4 Chloride 110 H Carbon Dioxide 24.3 Anion Gap 8.1 BUN 27 H Creatinine 0.6 Est GFR ( Amer) > 60.0 Est GFR (Non-Af Amer) > 60.0 BUN/Creatinine Ratio 45.0 Glucose 129 H POC Glucose 101 Whole Bld Lactic Acid Calcium 8.4 L Magnesium Iron TIBC Iron Saturation Unsaturated IBC Total Bilirubin 0.3 AST 13 ALT 11 Alkaline Phosphatase 74 Ammonia C-Reactive Protein B-Natriuretic Peptide Total Protein 6.1 Albumin 2.5 L Globulin 3.6 Albumin/Globulin Ratio 0.7 L TSH Vancomycin Trough Random Vancomycin Blood Type Antibody Screen Crossmatch 12/25/16 12/25/16 12/26/16 16:41 21:22 06:16 WBC RBC Hgb Hct MCV MCH MCHC Differential RDW Plt Count MPV Neutrophils % Band Neutrophils % Lymphocytes % Monocytes % Eosinophils % Basophils % Neutrophils (Manual) Lymphocytes Monocytes Eosinophils Platelet Estimate Platelet Morphology Polychromasia Anisocytosis RBC Morph Micro Appear ESR PT INR PTT (Actin FS) Sodium 132 L Potassium 4.5 Chloride 105 Carbon Dioxide 22.9 Anion Gap 8.6 BUN 26 H Creatinine 0.5 L Est GFR ( Amer) > 60.0 Est GFR (Non-Af Amer) > 60.0 BUN/Creatinine Ratio 52.0 Glucose 119 H POC Glucose 113 H 153 H Whole Bld Lactic Acid Calcium 8.2 L Magnesium Iron TIBC Iron Saturation Unsaturated IBC Total Bilirubin 0.2 L AST 13 ALT 10 Alkaline Phosphatase 72 Ammonia C-Reactive Protein B-Natriuretic Peptide Total Protein 6.2 Albumin 2.4 L Globulin 3.8 Albumin/Globulin Ratio 0.6 L TSH Vancomycin Trough Random Vancomycin Blood Type Antibody Screen Crossmatch 12/26/16 12/26/16 12/26/16 06:16 06:43 07:41 WBC 12.6 H RBC 2.63 L Hgb 7.8 L* Hct 23.3 L* MCV 88.5 MCH 29.5 MCHC Differential 33.3 RDW 15.8 Plt Count 305 MPV 10.3 Neutrophils % 74.3 Band Neutrophils % Lymphocytes % 17.3 L Monocytes % 4.1 Eosinophils % 4.0 Basophils % 0.3 Neutrophils (Manual) Lymphocytes Monocytes Eosinophils Platelet Estimate Platelet Morphology Polychromasia Anisocytosis RBC Morph Micro Appear ESR PT INR PTT (Actin FS) Sodium Potassium Chloride Carbon Dioxide Anion Gap BUN Creatinine Est GFR ( Amer) Est GFR (Non-Af Amer) BUN/Creatinine Ratio Glucose POC Glucose 117 H 118 H Whole Bld Lactic Acid Calcium Magnesium Iron TIBC Iron Saturation Unsaturated IBC Total Bilirubin AST ALT Alkaline Phosphatase Ammonia C-Reactive Protein B-Natriuretic Peptide Total Protein Albumin Globulin Albumin/Globulin Ratio TSH Vancomycin Trough Random Vancomycin Blood Type Antibody Screen Crossmatch 12/26/16 12/26/16 12/26/16 09:00 11:18 16:33 WBC RBC Hgb Hct MCV MCH MCHC Differential RDW Plt Count MPV Neutrophils % Band Neutrophils % Lymphocytes % Monocytes % Eosinophils % Basophils % Neutrophils (Manual) Lymphocytes Monocytes Eosinophils Platelet Estimate Platelet Morphology Polychromasia Anisocytosis RBC Morph Micro Appear ESR PT INR PTT (Actin FS) Sodium Potassium Chloride Carbon Dioxide Anion Gap BUN Creatinine Est GFR ( Amer) Est GFR (Non-Af Amer) BUN/Creatinine Ratio Glucose POC Glucose 128 H 94 Whole Bld Lactic Acid Calcium Magnesium Iron TIBC Iron Saturation Unsaturated IBC Total Bilirubin AST ALT Alkaline Phosphatase Ammonia C-Reactive Protein B-Natriuretic Peptide Total Protein Albumin Globulin Albumin/Globulin Ratio TSH Vancomycin Trough 31.8 H Random Vancomycin Blood Type Antibody Screen Crossmatch 12/27/16 00:12 WBC RBC Hgb Hct MCV MCH MCHC Differential RDW Plt Count MPV Neutrophils % Band Neutrophils % Lymphocytes % Monocytes % Eosinophils % Basophils % Neutrophils (Manual) Lymphocytes Monocytes Eosinophils Platelet Estimate Platelet Morphology Polychromasia Anisocytosis RBC Morph Micro Appear ESR PT INR PTT (Actin FS) Sodium Potassium Chloride Carbon Dioxide Anion Gap BUN Creatinine Est GFR ( Amer) Est GFR (Non-Af Amer) BUN/Creatinine Ratio Glucose POC Glucose 71 Whole Bld Lactic Acid Calcium Magnesium Iron TIBC Iron Saturation Unsaturated IBC Total Bilirubin AST ALT Alkaline Phosphatase Ammonia C-Reactive Protein B-Natriuretic Peptide Total Protein Albumin Globulin Albumin/Globulin Ratio TSH Vancomycin Trough Random Vancomycin Blood Type Antibody Screen Crossmatch Disposition: Home Medications: Home Medication Medication Instructions Recorded Type Acetaminophen [Tylenol] 650 mg GT Q6HR PRN 04/15/16 History Acetaminophen [Tylenol Extra 1,000 mg GT Q8H PRN 09/12/16 History Strength] Acetaminophen [Tylenol] 650 mg GT DAILY 09/12/16 History Bisacodyl [Dulcolax 10 Mg Supp] 10 mg RC DAILY PRN 09/12/16 History Cran/Vitc/Mannose/Fos/Bromeln 30 ml GT DAILY 09/12/16 History [Uti-Stat 887 ml] Loperamide HCl [Anti-Diarrheal] 2 mg GT Q4H PRN 09/12/16 History Multivitamin w/ Minerals 1 tab GT DAILY 09/12/16 History [Theragran M] Mylanta 30 ml GT Q6H PRN 09/12/16 History traMADol HCl [Ultram] 50 mg GT Q6HR PRN 09/12/16 History Acetaminophen [Tylenol 650 mg GT Q6HR PRN #0 udc 09/19/16 Rx 650mg/20.3mL Suspension] Albuterol/Ipratropium Neb [Duoneb 3 ml HHN Q6HRT #0 aers 09/19/16 Rx Neb] Ascorbic Acid [Vitamin C] 500 mg GT DAILY #0 udc 09/19/16 Rx Balsam [place] Oil [Venelex] 1 appl TP DAILY #0 appl 09/19/16 Rx Hydrocodone/APAP 5mg/325mg [[place] 1 tab GT Q4H PRN #0 tab 09/19/16 Rx 5mg/325mg] Lactobacillus Rhamnosus 1 each GT Q12H #0 cap.sprink 09/19/16 Rx [Culturelle] Loperamide [Imodium 1mg/5mL 2 mg GT Q4H PRN #0 [facility] [place] 09/19/16 Rx Suspension] Lorazepam [Ativan] 0.5 mg GT Q6H PRN #0 tab 09/19/16 Rx Magnesium Hydroxide [Milk of 30 ml GT HS PRN #0 [facility] [place] 09/19/16 Rx Magnesia] Multivitamin w/ Minerals 1 tab GT DAILY #0 tab 09/19/16 Rx [Theragran M] Pantoprazole [Protonix] 40 mg GT Q24H #0 pkt 09/19/16 Rx guaiFENesin [Robitussin] 200 mg GT Q4HR PRN #0 [facility] [place] 09/19/16 Rx Consults and Follow-Up: Delfino Cagle [Primary Care Provider] -
--- NOTE | 2017-01-01 17:40 | Discharge Summary ---
DATE OF DISCHARGE: 12/27/2016 FINAL DIAGNOSES: Acute renal failure, severe sepsis, pneumonia, fever, schizoaffective disorder, decubitus ulcer, status post percutaneous endoscopic gastrostomy , functional quadriplegia, bedridden, anemia, leukocytosis, lactic acidosis, and diabetes mellitus out of control. HISTORY OF PRESENT ILLNESS: A 66-year-old white female with multiple medical problems, has been complaining of fever and shortness of breath, noted to have elevated WBC and elevated lactic acid. HOSPITAL COURSE: During the hospital stay, the patient was initially admitted to the ICU unit. The patient was kept on empiric IV antibiotics and aggressive IV hydration. The patient had a culture done from her sacrum and it showed MRSA. Also, the patient had MRSA in the blood as well and also urine culture was done and it showed Proteus mirabilis. Empiric IV antibiotics were given. The patient had a consultation with ID, Dr. Obi Bhat, also Pulmonary consult Dr. Gardner, also Dr. Arroyo was on the case as well and Dr. Gonzalez. The patient had a wound debridement done and the patient was kept on a wound VAC. The patient also had a BiPAP as needed. Unfortunately on 12/27/2016, the patient . The patient was DNR status. JOB# [id number]
== END 2016-12-27 03:18 | disposition expired | DRG 853 ==
LOC: ER 17:20 → TELE 19:40 → ICU 12-17 08:15 → TELE 12-20 19:05
PROVIDERS: ADMIT Internal Medicine; ATTEND Internal Medicine
PROC: 30233N1 Transfusion of Nonautologous Red Blood Cells into Peripheral Vein, Percutaneous Approach (ICD-10-PCS; principal; 2016-12-17)
PROC: 0JB70ZZ Excision of Back Subcutaneous Tissue and Fascia, Open Approach (ICD-10-PCS; 2016-12-22)
PROC: 5A09457 Assistance with Respiratory Ventilation, 24-96 Consecutive Hours, Continuous Positive Airway Pressure (ICD-10-PCS; 2016-12-26)
DX: A41.02 Sepsis due to Methicillin resistant Staphylococcus aureus (principal); J18.9 Pneumonia, unspecified organism; R65.21 Severe sepsis with septic shock; N17.9 Acute kidney failure, unspecified; L89.154 Pressure ulcer of sacral region, stage 4; E87.0 Hyperosmolality and hypernatremia; R53.2 Functional quadriplegia; R64 Cachexia; F03.90 Unspecified dementia, unspecified severity, without behavioral disturbance, psychotic disturbance, mood disturbance, and anxiety; I82.509 Chronic embolism and thrombosis of unspecified deep veins of unspecified lower extremity; N12 Tubulo-interstitial nephritis, not specified as acute or chronic; E86.0 Dehydration; E11.65 Type 2 diabetes mellitus with hyperglycemia; M81.0 Age-related osteoporosis without current pathological fracture; K21.9 Gastro-esophageal reflux disease without esophagitis; K59.00 Constipation, unspecified; Z66 Do not resuscitate; E87.5 Hyperkalemia; F25.9 Schizoaffective disorder, unspecified; J45.909 Unspecified asthma, uncomplicated; I12.9 Hypertensive chronic kidney disease with stage 1 through stage 4 chronic kidney disease, or unspecified chronic kidney disease; N18.3 Chronic kidney disease, stage 3 (moderate); E11.22 Type 2 diabetes mellitus with diabetic chronic kidney disease; B96.4 Proteus (mirabilis) (morganii) as the cause of diseases classified elsewhere; R19.7 Diarrhea, unspecified; R32 Unspecified urinary incontinence; D63.8 Anemia in other chronic diseases classified elsewhere; Z93.1 Gastrostomy status; Z74.01 Bed confinement status; Z88.0 Allergy status to penicillin; Z79.899 Other long term (current) drug therapy; Z68.23 Body mass index [BMI] 23.0-23.9, adult
CPT/HCPCS: 36415-UA; 71010-TC; 72220-TC; 76770-TC; 78315-TC; 80048-TC; 80053-TC; 80202-TC; 81001-TC; 82140-TC; 82947-TC; 82948-90; 83036-90; 83540-90; 83550-90; 83605; 83735-TC; 83880-TC; 84443-TC; 85007-TC; 85025-TC; 85027-TC; 85610-TC; 85652-TC; 86141-TC; 86850-TC; 86900-TC; 86901-TC; 86922-TC; 87070-90; 87075-90; 87086-90; 87205-90; 87230-TC; 88302-TC; 90799; 93005; 94640; 94660; 94760; A9503; C1751; J0696; J0878; J1644; J1815; J2001; J2185; J2405; J2704; J3370; J3480; J7030; J7070; J7613; P9016; V2790; X7704; Z7610